=== PATIENT | female | born 1945 | race American Indian/Alaskan Native ===

== ENCOUNTER 2020-09-08 15:46 | Inpatient (IN) | payer OTHER, MEDICARE ==
[2020-09-08] MEDS ORDERED: SODIUM CHLORIDE 0.9% 1000 ML 1,000 ML IV ONE (16:33)
--- NOTE | 2020-09-08 16:43 | Emergency Department Report ---
HPI - General Chief Complaint: Syncope Time Seen by Provider: 09/08/20 16:19 - HPI HPI: 75-year-old female with history of hypertension and diabetes mellitus is brought in by EMS after she had a syncopal episode at home and was found to be hypoxic. HPI is obtained from the patient, her daughter, Vikas, and EMS. The patient states that for the last week she has felt ill with a cough productive of scant mucus. Today she said she felt particularly weak and sleepy and was sleeping all day and not eating. She does not remember ever having a syncopal episode. I spoke to the patient's daughter Gretta over the phone and she states that for the past 3 days the patient has been extremely somnolent and sleeping a lot. Today while checking her blood sugar while the patient was on the bed, her eyes rolled back in the patient fell back in the bed and was unconscious for approximately 60 seconds. When she regained consciousness she was mentating normally and was not confused. She did not at any point hit her head or injure any other part of her body. 911 was called and when EMS arrived the patient was satting 74% on room air. She was given 4 L of supplemental oxygen by nasal cannula which improved her oxygen to 94%. Her blood glucose was 227 in route. The patient is ANO x4 and she states that she never experienced any chest pain or shortness of breath at any time today. She says she has no complaints at this time either. She does say that she has had some urinary frequency but no dysuria. She has not received a Covid vaccine. ED Past Medical Hx - Past Medical History Previous Medical History?: Yes Hx Hypertension: Yes Hx Diabetes: Yes ED Review of Systems ROS: Stated complaint: WEAKNESS/HYPOXIA Other details as noted in HPI Constitutional: fever, weakness. denies: chills Eyes: denies: eye pain, vision change ENT: denies: throat pain, congestion Respiratory: cough. denies: shortness of breath, wheezing Cardiovascular: syncope. denies: chest pain, palpitations, edema Gastrointestinal: denies: abdominal pain, nausea, vomiting, diarrhea, constipation Genitourinary: frequency. denies: dysuria Musculoskeletal: denies: back pain, joint swelling Skin: denies: rash Neurological: denies: headache, weakness, numbness, paresthesias Psychiatric: denies: anxiety Physical Exam - Physical Exam Vital Signs: Vital Signs 09/08/20 16:22 O2 Sat by Pulse 89 Oximetry Physical Exam: GENERAL: Morbidly obese elderly female in no acute distress. Slightly somnolent but oriented x4 HEAD: Normocephalic. No obvious signs of trauma. ENT: Dry mucous membranes. EYES: Extraocular movements are intact. Pupils are equal round and reactive to light bilaterally NECK: Supple. Full ROM is intact. Trachea is midline. LUNGS: Tachypneic but without accessory muscle use. Equal chest rise bilateral ly. There are right-sided rales from the base of the mid lung and left-sided basilar rales. The remaining lung tejada are clear. CARDIOVASCULAR: Mild tachycardia but with regular rhythm. No murmurs or rubs. VASCULAR: Cap refill < 2 seconds. 2+ peripheral pulses. Bilateral lower extremities have chronic appearing skin changes and 1+ edema bilaterally ABDOMEN: Abdomen is soft and nondistended. There is no significant tenderness, guarding or rebound. SKIN: Skin is warm and dry NEURO: Patient is awake, slightly somnolent, and oriented. strategy director II-XII grossly intact. No focal deficits. Normal motor and sensory exam throughout. Normal speech. MUSCULOSKELETAL: No obvious deformities. No significant tenderness. Normal ROM throughout. BACK/SPINE: No midline tenderness or step-offs of the C/T/L spine. No costovertebral angle tenderness. ED Course Vital Signs 09/08/20 16:22 O2 Sat by Pulse 89 Oximetry ED Medical Decision Making - Lab Data Result diagrams: 09/08/20 17:37 09/08/20 17:37 Lab Results 09/08/20 09/08/20 09/08/20 Range/Units 17:37 17:37 17:37 WBC 4.3 L (4.5-11.0) K/mm3 RBC 4.55 (3.65-5.03) M/mm3 Hgb 14.1 (10.1-14.3) gm/dl Hct 42.8 (30.3-42.9) % MCV 94 (79-97) fl MCH 31 (28-32) pg MCHC 33 (30-34) % RDW 13.8 (13.2-15.2) % Plt Count 106 L (140-440) K/mm3 Lymph % (Auto) 14.9 (13.4-35.0) % Calhoun % (Auto) 7.5 H (0.0-7.3) % Eos % (Auto) 0.0 (0.0-4.3) % Baso % (Auto) 0.2 (0.0-1.8) % Lymph # (Auto) 0.6 L (1.2-5.4) K/mm3 Calhoun # (Auto) 0.3 (0.0-0.8) K/mm3 Eos # (Auto) 0.0 (0.0-0.4) K/mm3 Baso # (Auto) 0.0 (0.0-0.1) K/mm3 Seg Neutrophils % 77.4 H (40.0-70.0) % Seg Neutrophils # 3.3 (1.8-7.7) K/mm3 PT 14.2 (12.2-14.9) Sec. INR 1.04 (0.87-1.13) APTT 29.2 (24.2-36.6) Sec. D-Dimer 741.67 H (0-234) ng/mlDDU Sodium 129 L (137-145) mmol/L Potassium 3.6 (3.6-5.0) mmol/L Chloride 91.9 L (98-107) mmol/L Carbon Dioxide 24 (22-30) mmol/L Anion Gap 17 mmol/L BUN 32 H (7-17) mg/dL Creatinine 1.5 H (0.6-1.2) mg/dL Estimated GFR 41 ml/min BUN/Creatinine Ratio 21 % Glucose 200 H (65-100) mg/dL Lactic Acid (0.7-2.0) mmol/L Calcium 8.1 L (8.4-10.2) mg/dL Magnesium (1.7-2.3) mg/dL Ferritin (10.0-200.0) ng/mL Total Bilirubin 0.40 (0.1-1.2) mg/dL AST 49 H (5-40) units/L ALT 22 (7-56) units/L Alkaline Phosphatase 65 (35-129) units/L Lactate Dehydrogenase (91-180) units/L Troponin T < 0.010 (0.00-0.029) ng/mL C-Reactive Protein (0.00-1.30) mg/dL NT-Pro-B Natriuret Pep (0-900) pg/mL Total Protein 7.0 (6.3-8.2) g/dL Albumin 2.7 L (3.9-5) g/dL Albumin/Globulin Ratio 0.6 % Lipase 47 (13-60) units/L 09/08/20 09/08/20 09/08/20 Range/Units 17:37 17:37 17:37 WBC (4.5-11.0) K/mm3 RBC (3.65-5.03) M/mm3 Hgb (10.1-14.3) gm/dl Hct (30.3-42.9) % MCV (79-97) fl MCH (28-32) pg MCHC (30-34) % RDW (13.2-15.2) % Plt Count (140-440) K/mm3 Lymph % (Auto) (13.4-35.0) % Calhoun % (Auto) (0.0-7.3) % Eos % (Auto) (0.0-4.3) % Baso % (Auto) (0.0-1.8) % Lymph # (Auto) (1.2-5.4) K/mm3 Calhoun # (Auto) (0.0-0.8) K/mm3 Eos # (Auto) (0.0-0.4) K/mm3 Baso # (Auto) (0.0-0.1) K/mm3 Seg Neutrophils % (40.0-70.0) % Seg Neutrophils # (1.8-7.7) K/mm3 PT (12.2-14.9) Sec. INR (0.87-1.13) APTT (24.2-36.6) Sec. D-Dimer (0-234) ng/mlDDU Sodium (137-145) mmol/L Potassium (3.6-5.0) mmol/L Chloride (98-107) mmol/L Carbon Dioxide (22-30) mmol/L Anion Gap mmol/L BUN (7-17) mg/dL Creatinine (0.6-1.2) mg/dL Estimated GFR ml/min BUN/Creatinine Ratio % Glucose 201 H (65-100) mg/dL Lactic Acid 1.70 (0.7-2.0) mmol/L Calcium (8.4-10.2) mg/dL Magnesium 1.90 (1.7-2.3) mg/dL Ferritin 731.2 H (10.0-200.0) ng/mL Total Bilirubin (0.1-1.2) mg/dL AST (5-40) units/L ALT (7-56) units/L Alkaline Phosphatase (35-129) units/L Lactate Dehydrogenase 396 H (91-180) units/L Troponin T (0.00-0.029) ng/mL C-Reactive Protein 7.00 H (0.00-1.30) mg/dL NT-Pro-B Natriuret Pep 503.6 (0-900) pg/mL Total Protein (6.3-8.2) g/dL Albumin (3.9-5) g/dL Albumin/Globulin Ratio % Lipase (13-60) units/L 07/23/21 Range/Units 20:09 WBC (4.5-11.0) K/mm3 RBC (3.65-5.03) M/mm3 Hgb (10.1-14.3) gm/dl Hct (30.3-42.9) % MCV (79-97) fl MCH (28-32) pg MCHC (30-34) % RDW (13.2-15.2) % Plt Count (140-440) K/mm3 Lymph % (Auto) (13.4-35.0) % Calhoun % (Auto) (0.0-7.3) % Eos % (Auto) (0.0-4.3) % Baso % (Auto) (0.0-1.8) % Lymph # (Auto) (1.2-5.4) K/mm3 Calhoun # (Auto) (0.0-0.8) K/mm3 Eos # (Auto) (0.0-0.4) K/mm3 Baso # (Auto) (0.0-0.1) K/mm3 Seg Neutrophils % (40.0-70.0) % Seg Neutrophils # (1.8-7.7) K/mm3 PT (12.2-14.9) Sec. INR (0.87-1.13) APTT (24.2-36.6) Sec. D-Dimer (0-234) ng/mlDDU Sodium (137-145) mmol/L Potassium (3.6-5.0) mmol/L Chloride (98-107) mmol/L Carbon Dioxide (22-30) mmol/L Anion Gap mmol/L BUN (7-17) mg/dL Creatinine (0.6-1.2) mg/dL Estimated GFR ml/min BUN/Creatinine Ratio % Glucose (65-100) mg/dL Lactic Acid 1.80 (0.7-2.0) mmol/L Calcium (8.4-10.2) mg/dL Magnesium (1.7-2.3) mg/dL Ferritin (10.0-200.0) ng/mL Total Bilirubin (0.1-1.2) mg/dL AST (5-40) units/L ALT (7-56) units/L Alkaline Phosphatase (35-129) units/L Lactate Dehydrogenase (91-180) units/L Troponin T (0.00-0.029) ng/mL C-Reactive Protein (0.00-1.30) mg/dL NT-Pro-B Natriuret Pep (0-900) pg/mL Total Protein (6.3-8.2) g/dL Albumin (3.9-5) g/dL Albumin/Globulin Ratio % Lipase (13-60) units/L - EKG Data -: EKG Interpreted by [facility] - EKG Data 09/08/20 17:58 Normal sinus rhythm. Left axis deviation. Left anterior fascicular block. Normal intervals. No ectopy. Nonspecific T wave inversions. No significant ST segment abnormalities. - Radiology Data CHEST 1 VIEW 09/08/2020 3:49 PM INDICATION / CLINICAL INFORMATION: hypoxia. COMPARISON: None available. FINDINGS: SUPPORT DEVICES: None. HEART / MEDIASTINUM: No significant abnormality. LUNGS / PLEURA: Lung volumes are reduc ed with nonspecific bibasilar opacities. No significant pleural effusion. No pneumothorax. ADDITIONAL FINDINGS: No significant additional findings. IMPRESSION: Low lung volumes with nonspecific bibasilar opacities that could represent atelectasis or pneumonia. Continued radiographic follow-up to [facility] is recommended. Signer Name: Bogdan Pereira MD Signed: 09/08/2020 3:55 PM Workstation Name: [id number] CT HEAD WITHOUT CONTRAST INDICATION / CLINICAL INFORMATION: syncope. TECHNIQUE: All CT scans at this location are performed using CT dose reduction for ALARA by means of automated exposure control. COMPARISON: None available. FINDINGS: No acute intracranial hemorrhage. Ventricles are normal in size without midline shift or mass effect. No extra-axial fluid collection is seen. ADDITIONAL FINDINGS: None. IMPRESSION: 1. No acute intracranial abnormality. Signer Name: Roberto Smith MD Signed: 09/08/2020 6:40 PM Workstation Name: [id number] CTA CHEST WITH CONTRAST INDICATION / CLINICAL INFORMATION: syncope, rule out PE/dissection. TECHNIQUE: Axial CT images were obtained through the chest after injection of IV contrast. 3 plane MIP and/or 3D reconstructions were produced. All CT scans at this location are performed using CT dose reduction for ALARA by means of automated exposure control. COMPARISON: None available. FINDINGS: The pulmonary artery is patent without filling defect or evidence for PTE. There are diffuse multifocal airspace opacities and groundglass densities in bilateral lungs with some areas of nodularity. Bronchiectasis is identified. Heart is slightly enlarged. No pericardial effusion. A few paratracheal enlarged nodes. In the upper abdomen large gallstones are seen. Degenerative changes seen throughout spine. IMPRESSION: 1. No CT evidence for pulmonary embolism. 2. Multifocal airspace opacities with nodular densities and groundglass opacities in bilateral lungs. Findings could represent atypical infection, Covid. A follow-up after treatment is recommended to exclude underlying pulmonary nodule or malignancy. 3. Cholelithiasis. Signer Name: Roberto Smith MD Signed: 09/08/2020 6:52 PM Workstation Name: [id number] - Medical Decision Making 75-year-old female with diabetes brought in by EMS today after she experienced a syncopal episode and was found to be hypoxic with an oxygen saturation of 74% on room air. The patient has had a cough for the past week and for the past 3 days has been somnolent and not eating well. Patient had an episode of LOC in which her eyes rolled back for approximately 60 seconds while in the bed when she regained consciousness she was not confused to suggest a seizure. The patient is amnesic to the event. Initial assessment she is afebrile but with an oxygen saturation of 89% on room air which corrects to 95 to 98% on 4 L via nasal cannula. She has dry mucous membranes. Lung auscultation reveals right-sided rales from the base to the mid lung and left-sided basilar rales. She has a nonfocal neurologic exam and no obvious signs of trauma. We will perform broad work-up with sepsis order set including full set of labs and cultures, EKG, chest x-ray, COVID-19 order set, and CTA of the chest to assess for evidence of pulmonary embolism given syncope with hypoxia. We will obtain CT of the head to assess for intracranial hemorrhage, evidence of ongoing ischemia, brain mass, or other intracranial abnormality given that the patient has been somnolent and experienced a syncopal episode with amnesia for the event. We will give 1 L of IV fluids and continue supplemental oxygen. She is currently satting 97 to 99% on 4 L NC. We will monitor the patient very closely. At 5 PM, the chest x-ray appears to show bibasilar opacities thought to repre sent atelectasis versus pneumonia. Given my suspicion for pneumonia I have ordered IV ceftriaxone and azithromycin to treat CAP. The patient will receive 30 mL/kg of IV fluid based on her ideal body weight of 55 kg. Labs revealed leukopenia with white blood cell count of 4.3. Creatinine is elevated at 1.5 with BUN of 32 and sodium of 129. D-dimer is elevated at 741. The patient's inflammatory markers are elevated. Lactate is within normal limits. CT of the head reveals no acute abnormalities. CTA of the chest reveals groundglass opacities in the bilateral lungs most typical of COVID-19 pneumonia and nonspecific finding of gallstones. I spoke with the patient and her daughter Vikas over the phone with the patient regarding the fact that the patient has pneumonia which could very likely be due to COVID-19 and she will need to be admitted to the hospital for further treatment and supplemental oxygen. They both expressed understanding and agreement with the plan of care. She is currently satting in the high 90s on 5 L via nasal cannula. At 8:37 PM I spoke with Dr. Day from [place] regarding the patient's case. He states that given she is hypoxic and unlikely to be stable for transport she should stay and be admitted to our hospital. I spoke with Dr. Fan, the on-call hospitalist regarding the case and he accepts patient for admission and will assume care. Critical Care Time: Yes Critical care time in (mins) excluding proc time.: 45 Critical care attestation.: If time is entered above; I have spent that time in minutes in the direct care of this critically ill patient, excluding procedure time. Critical care time was spent in the evaluation, assessment, work-up, and management of syncope and hypoxic respiratory failure requiring supplemental oxygen, interpretation of x-rays, and multiple reevaluations and reassessment. ED Disposition Clinical Impression: Suspected 2019 novel coronavirus infection, Acute hypoxemic respiratory failur e, Acute kidney injury (NICOLASA) with acute tubular necrosis (ATN), Pneumonia, Obesity hypoventilation syndrome, Syncope, Hyperglycemia Disposition: DC-09 OP ADMIT IP TO THIS HOSP Is pt being admited?: Yes Condition: Fair
[2020-09-08] MEDS ORDERED: cefTRIAXone/NS 1 GM/50 ML 1 GM/50 ML BAG IV ONE (16:59)
[2020-09-08] MEDS ORDERED: AZITHROMYCIN/NS 500 MG/250 ML 500 MG/250 ML BAG IV ONE (17:00)
--- NOTE | 2020-09-08 17:00 | XRay Report ---
CHEST 1 VIEW 09/08/2020 3:49 PM INDICATION / CLINICAL INFORMATION: hypoxia. COMPARISON: None available. FINDINGS: SUPPORT DEVICES: None. HEART / MEDIASTINUM: No significant abnormality. LUNGS / PLEURA: Lung volumes are reduced with nonspecific bibasilar opacities. No significant pleural effusion. No pneumothorax. ADDITIONAL FINDINGS: No significant additional findings. IMPRESSION: Low lung volumes with nonspecific bibasilar opacities that could represent atelectasis or pneumonia. Continued radiographic follow-up to resolution is recommended. Signer Name: Bogdan Pereira MD Signed: 09/08/2020 4:55 PM Workstation Name: [id number]
[2020-09-08 18:23] LABS: Basophils % (Auto) 0.2 % (0.0-1.8); Hematocrit 42.8 % (30.3-42.9); Hemoglobin 14.1 gm/dl (10.1-14.3); Lymphocytes # (Auto) 0.6 K/mm3 (1.2-5.4); Lymphocytes % (Auto) 14.9 % (13.4-35.0); Mean Corpuscular HGB Conc 33 % (30-34); Mean Corpuscular Volume 94 fl (79-97); Monocytes # (Auto) 0.3 K/mm3 (0.0-0.8); Monocytes % (Auto) 7.5 % (0.0-7.3); Platelet Count 106 K/mm3 (140-440); Red Blood Count 4.55 M/mm3 (3.65-5.03); Red Cell Distribution Width 13.8 % (13.2-15.2)
[2020-09-08 18:30] LABS: INR 1.04 (0.87-1.13)
[2020-09-08 18:31] LABS: Partial Thromboplastin Time 29.2 Sec. (24.2-36.6)
[2020-09-08 18:45] LABS: Alanine Aminotransferase 22 units/L (7-56); Albumin 2.7 g/dL (3.9-5); BUN/Creatinine Ratio 21; Blood Urea Nitrogen 32 mg/dL (7-17); Calcium 8.1 mg/dL (8.4-10.2); Hemolysis Index 12
--- NOTE | 2020-09-08 19:44 | Cat Scan Report ---
CT HEAD WITHOUT CONTRAST INDICATION / CLINICAL INFORMATION: syncope. TECHNIQUE: All CT scans at this location are performed using CT dose reduction for ALARA by means of automated e xposure control. COMPARISON: None available. FINDINGS: No acute intracranial hemorrhage. Ventricles are normal in size without midline shift or mass effect. No extra-axial fluid collection is seen. ADDITIONAL FINDINGS: None. IMPRESSION: 1. No acute intracranial abnormality. Signer Name: Roberto Smith MD Signed: 09/08/2020 7:40 PM Workstation Name: [id number]
--- NOTE | 2020-09-08 19:56 | Cat Scan Report ---
CTA CHEST WITH CONTRAST INDICATION / CLINICAL INFORMATION: syncope, rule out PE/dissection. TECHNIQUE: Axial CT images were obtained through the chest after injection of IV contrast. 3 plane MD P and/or 3D reconstructions were produced. All CT scans at this location are performed using CT dose reduction for ALARA by means of automated exposure control. COMPARISON: None available. FINDINGS: The pulmonary artery is patent without filling defect or evidence for PTE. There are diffuse multifoc al airspace opacities and groundglass densities in bilateral lungs with some areas of nodularity. Bro nchiectasis is identified. Heart is slightly enlarged. No pericardial effusion. A few paratracheal en larged nodes. In the upper abdomen large gallstones are seen. Degenerative changes seen throughout sp ine. IMPRESSION: 1. No CT evidence for pulmonary embolism. 2. Multifocal airspace opacities with nodular densities and groundglass opacities in bilateral lungs. Findings could represent atypical infection, Covid. A follow-up after treatment is recommended to ex clude underlying pulmonary nodule or malignancy. 3. Cholelithiasis. Signer Name: Roberto Smith MD Signed: 09/08/2020 7:52 PM Workstation Name: [id number]
--- NOTE | 2020-09-08 20:19 | History and Physical Report ---
History of Present Illness Chief complaint: I do not feel good, and my daughter knows was going on History of present illness: 75 YO Female with HTN, DM, Obesity Hypoventilation Syndrome, OA presents to ED for evaluation. Patient states "I do not feel good". Patient states that she has experienced generalized weakness, loss of appetite, dry cough, loss of sense of smell, loss of sense of taste, shortness of breath, malaise, decreased exercise tolerance over the past 3 days with progressively worsening symptoms o tom the same timeframe. Patient daughter is available by telephone and provides additional history. Patient daughter reports that while she was checking the patient blood glucose levels the patient "I threw back in her head and she passed out". EMS was notified and upon arrival the patient was found to be in distress and subsequently transported to [facility] for further care and evaluation of the aforementioned symptoms. The patient was seen and evaluated in the emergency department. All lab and imaging studies reviewed. Patient was found to have a pulse oximetry of 82% on room air which is consistent with acute hypoxemic respiratory failure. Patient underwent chest x-ray and was found to h ave bilateral pneumonia, as well as NICOLASA with ATN, as well as suspected coronavirus infection. Patient admitted to medical floor and initiated on coronavirus protocol as well as pneumonia protocol. Patient denies fever, chills, chest pain, palpitation, productive cough, skin rash, recent ill contac ts, or known exposure to COVID-19. No prior admission for review. No medication listed at time of admission for reconciliation. Advanced care planning conducted in ED. Past History Past Medical History: diabetes, hypertension, other (See HPI) Medications and Allergies Allergies Allergy/AdvReac Type Severity Reaction Status Date / Time lisinopril Allergy Severe Angioedema Verified 09/08/20 16:33 Review of Systems Constitutional: weakness, other (Not feeling good), no weight loss, no weight gain, no fever, no chills Ears, nose, mouth and throat: no ear discharge, no decreased hearing, no nose pain, no nasal congestion, no nasal discharge Breasts: no change in shape, no swelling, no mass Cardiovascular: shortness of breath, no chest pain, no palpitations, no rapid/irregular heart beat, no syncope Respiratory: cough, shortness of breath, dyspnea on exertion, no hemoptysis, no congestion, no wheezing Gastrointestinal: no nausea, no vomiting, no diarrhea, no constipation Genitourinary Female: no pelvic pain, no flank pain, no dysuria, no urinary frequency, no urgency Rectal: no pain, no bleeding Musculoskeletal: no neck stiffness, no neck pain, no shooting arm pain, no arm numbness/tingling Integumentary: no rash, no pruritis, no redness, no sores, no wounds Neurological: no head injury, no transient paralysis, no paralysis, no parathesias, no tingling, no seizures Psychiatric: no anxiety, no change in sleep habits, no sleep disturbances, no hypersomnia Endocrine: no cold intolerance, no heat intolerance, no excessive thirst, no polydipsia, no polyuria Hematologic/Lymphatic: no easy bruising, no easy bleeding Allergic/Immunologic: no urticaria, no allergic rhinitis, no wheezing Exam - Constitutional Vitals: Temp Pulse Resp BP Pulse Ox 89 09/08/20 16:22 General appearance: Present: mild distress, obese - EENT Eyes: Present: PERRL ENT: hearing intact, clear oral mucosa - Neck Neck: Present: supple, normal ROM - Respiratory Respiratory effort: labored Respiratory: bilateral: diminished, rhonchi - Cardiovascular Heart Sounds: Present: S1 & S2. Absent: rub, click - Extremities Extremities: pulses symmetrical, No edema Peripheral Pulses: within normal limits - Abdominal General gastrointestinal: Present: soft, non-tender, non-distended, normal bowel sounds Female genitourinary: Present: normal - Integumentary Integumentary: Present: clear, warm, dry - Musculoskeletal Musculoskeletal: gait normal, strength equal bilaterally - Psychiatric Psychiatric: appropriate mood/affect, intact judgment & insight - Neurologic Neurologic: CNII-XII intact, moves all extremities HEART Score - HEART Score Troponin: Troponin T < 0.010 ng/mL (0.00-0.029) 09/08/20 17:37 Results - Labs CBC & Chem 7: 09/08/20 17:37 09/08/20 17:37 Labs: Abnormal lab results 09/08/20 09/08/20 09/08/20 Range/Units 17:37 17:37 17:37 WBC 4.3 L (4.5-11.0) K/mm3 Plt Count 106 L (140-440) K/mm3 [place] % (Auto) 7.5 H (0.0-7.3) % Lymph # (Auto) 0.6 L (1.2-5.4) K/mm3 Seg Neutrophils % 77.4 H (40.0-70.0) % D-Dimer 741.67 H (0-234) ng/mlDDU Sodium 129 L (137-145) mmol/L Chloride 91.9 L (98-107) mmol/L BUN 32 H (7-17) mg/dL Creatinine 1.5 H (0.6-1.2) mg/dL Glucose 200 H (65-100) mg/dL Calcium 8.1 L (8.4-10.2) mg/dL Ferritin (10.0-200.0) ng/mL AST 49 H (5-40) units/L Lactate Dehydrogenase (91-180) units/L C-Reactive Protein (0.00-1.30) mg/dL Albumin 2.7 L (3.9-5) g/dL 09/08/20 09/08/20 Range/Units 17:37 17:37 WBC (4.5-11.0) K/mm3 Plt Count (140-440) K/mm3 [place] % (Auto) (0.0-7.3) % Lymph # (Auto) (1.2-5.4) K/mm3 Seg Neutrophils % (40.0-70.0) % D-Dimer (0-234) ng/mlDDU Sodium (137-145) mmol/L Chloride (98-107) mmol/L BUN (7-17) mg/dL Creatinine (0.6-1.2) mg/dL Glucose 201 H (65-100) mg/dL Calcium (8.4-10.2) mg/dL Ferritin 731.2 H (10.0-200.0) ng/mL AST (5-40) units/L Lactate Dehydrogenase 396 H (91-180) units/L C-Reactive Protein 7.00 H (0.00-1.30) mg/dL Albumin (3.9-5) g/dL Assessment and Plan - Patient Problems (1) Acute hypoxemic respiratory failure Current Visit: Yes Status: Acute Plan to address problem: Chest x-ray, CT scan chest, supplemental oxygen, pulse oximetry, nebulizer therapy, prone positioning while in bed, noninvasive positive pressure ventilation as clinical indicated. (2) Suspected 2019 novel coronavirus infection Current Visit: Yes Status: Acute Plan to address problem: Coronavirus protocol: IV antibiotic therapy, IV steroid therapy, supplemental oxygen, pulse oximetry, prone positioning while in bed, vitamin C therapy, vitamin D therapy, zinc therapy, (3) Pneumonia Current Visit: Yes Status: Acute Plan to address problem: Pneumonia protocol: Chest x-ray, CBC, CMP, IV antibiotic therapy, supplemental oxygen, pulse oximetry, blood cultures. (4) Obesity hypoventilation syndrome Current Visit: Yes Status: Acute Plan to address problem: Balanced diet, increase physical activity at discharge, outpatient pulmonary f ollow-up for sleep study, outpatient bariatric surgery follow-up. (5) Acute kidney injury (NICOLASA) with acute tubular necrosis (ATN) Current Visit: Yes Status: Acute Plan to address problem: BMP, IV fluid resuscitation therapy, repeat BMP in a.m. to monitor serum creatinine as well as GFR. (6) DVT prophylaxis Current Visit: Yes Status: Acute Plan to address problem: SCDs bilateral lower extremities while in bed, prophylactic anticoagulation (7) Advance care planning Current Visit: Yes Status: Acute Plan to address problem: Disease education conducted, care plan discussed, diagnosis discussed, prognosis discussed, patient knowledges understanding and agreement with care plan, patient daughter acknowledges understanding agree with care plan, patient is full code, +30 minutes.
[2020-09-08] MEDS ORDERED: HYDROmorphone 1 MG/1 ML INJ IV PRN (20:23)
[2020-09-08] MEDS ORDERED: oxyCODONE /ACETAMINOPHEN 5-325MG TAB PO PRN (20:23)
[2020-09-08] MEDS ORDERED: ALBUTEROL 2.5 MG/3 ML NEBU IH PRN (20:23)
[2020-09-08] MEDS ORDERED: ONDANSETRON 4 MG/2 ML INJ IV PRN (20:23)
[2020-09-08] MEDS ORDERED: SODIUM CHLORIDE 0.9% 1000 ML 1,000 ML IV SCH (20:30)
[2020-09-08] MEDS ORDERED: POTASSIUM CHLORIDE ER 20 MEQ TAB PO ONE (20:37)
[2020-09-08] MEDS: methylPREDNISolone Sod Succinate 40 MG/1 ML INJ IV SCH (22:47)
[2020-09-08] MEDS: HEPARIN 5,000 UNIT/1 ML VIAL SUB-Q SCH (22:49)
[2020-09-08 23:16] LABS: Bilirubin,Urine NEG (Negative); Blood,Urine SM (Negative); Color,Urine Yellow (Yellow); Mucus,Urine FEW /HPF; Urobilinogen,Urine < 2.0 mg/dL (<2.0)
[2020-09-08 23:20] LABS: Protein,Urine >500 mg/dL (Negative)
[2020-09-08 23:24] LABS: Amphetamine Screen,Urine PRESUMPTIVE NEGATIVE; Benzodiazepines Screen,Urine PRESUMPTIVE NEGATIVE; Cannabinoid Screen,Urine PRESUMPTIVE NEGATIVE; Cocaine Screen,Urine PRESUMPTIVE NEGATIVE; Methadone Screen,Urine PRESUMPTIVE NEGATIVE; Opiate Screen,Urine PRESUMPTIVE NEGATIVE
[2020-09-08] MEDS: ZINC SULFATE 220 MG CAP PO SCH (23:31)
[2020-09-08] MEDS: ASCORBIC ACID 500 MG TAB PO SCH (23:31)
[2020-09-09] MEDS: methylPREDNISolone Sod Succinate 40 MG/1 ML INJ IV SCH ×3 (08:51→21:38)
[2020-09-09 09:06] LABS: Basophils % (Auto) 0.6 % (0.0-1.8); Hematocrit 47.1 % (30.3-42.9); Hemoglobin 15.5 gm/dl (10.1-14.3); Lymphocytes # (Auto) 0.3 K/mm3 (1.2-5.4); Lymphocytes % (Auto) 9.5 % (13.4-35.0); Mean Corpuscular HGB Conc 33 % (30-34); Mean Corpuscular Volume 94 fl (79-97); Monocytes # (Auto) 0.2 K/mm3 (0.0-0.8); Monocytes % (Auto) 4.7 % (0.0-7.3); Red Blood Count 5.01 M/mm3 (3.65-5.03); Red Cell Distribution Width 14.2 % (13.2-15.2)
[2020-09-09 09:10] LABS: Platelet Count 95 K/mm3 (140-440)
[2020-09-09 09:29] LABS: Albumin 2.8 g/dL (3.9-5); Calcium 8.4 mg/dL (8.4-10.2)
[2020-09-09] MEDS: HEPARIN 5,000 UNIT/1 ML VIAL SUB-Q SCH ×2 (10:31→21:38)
[2020-09-09] MEDS: AZITHROMYCIN/NS 500 MG/250 ML 500 MG/250 ML BAG IV SCH (10:31)
[2020-09-09] MEDS: cefTRIAXone/NS 2 GM/100 ML 2 GM/100 ML BAG IV SCH (10:32)
[2020-09-09] MEDS: ZINC SULFATE 220 MG CAP PO SCH ×2 (10:32→21:38)
[2020-09-09] MEDS: CHOLECALCIFEROL (VIT D3) 1000 UNIT (25 mcg) TAB PO SCH (10:32)
[2020-09-09] MEDS: ASCORBIC ACID 500 MG TAB PO SCH ×2 (10:34→21:38)
[2020-09-09] MEDS: INSULIN LISPRO 100 UNIT/ML SUB-Q SCH ×3 (11:30→21:41)
--- NOTE | 2020-09-09 11:42 | Progress Note ---
Assessment and Plan Assessment and Plan - Patient Problems (1) Acute hypoxemic respiratory failure Current Visit: Yes Status: Acute Plan to address problem: In severe respiratory failure Needs very high flow oxygen BiPAP as necessary (2) ARDS (adult respiratory distress syndrome) Current Visit: Yes Status: Acute Plan to address problem: Patient had respiratory distress syndrome secondary to Covid pneumonia Also hypoventilation syndrome (3) Obesity hypoventilation syndrome Current Visit: Yes Status: Acute Plan to address problem: Secondary to morbid obesity (4) Suspected 2019 novel coronavirus infection Current Visit: Yes Status: Acute Plan to address problem: Coronavirus pcr positive On IV Decadron (5) DVT prophylaxis Current Visit: Yes Status: Acute Subjective Date of service: 09/09/20 Principal diagnosis: Acute respiratory failure with hypoxia, Covid pneumonia Interval history: 75 YO Female with HTN, DM, Obesity Hypoventilation Syndrome, OA presents to ED for evaluation. Patient states "I do not feel good". Patient states that she has experienced generalized weakness, loss of appetite, dry cough, loss of sense of smell, loss of sense of taste, shortness of breath, malaise, decreased exercise tolerance over the past 3 days with progressively worsening symptoms over the same timeframe. Patient daughter is available by telephone and provides additional history. Patient daughter reports that while she was checking the patient blood glucose levels the patient "I threw back in her head and she passed out". EMS was notified and upon arrival the patient was found to be in distress and subsequently transported to [facility] for further care and evaluation of the aforementioned symptoms. The patient was seen and evaluated in the emergency department. All lab and imaging studies reviewed. Patient was found to have a pulse oximetry of 82% on room air which is consistent with acute hypoxemic respiratory failure. Patient underwent chest x-ray and was found to have bilateral pneumonia, as well as NICOLASA with ATN, as well as suspected coronavirus infection. Patient admitted to medical floor and initiated on coronavirus protocol as well as pneumonia protocol. Patient denies fever, chills, chest pain, palpitation, productive cough, skin rash, recent ill contacts, or known exposure to COVID-19. No prior admission for review. No medication listed at time of admission for reconciliation. Advanced care planning conducted in ED. 09/09/2020 Patient on high flow nasal cannula oxygen Covid positive pneumonia Patient morbidly obese Possible hypoventilation syndrome 09/10/2020 Patient on high flow nasal cannula oxygen and BiPAP Delay transfer to ICU for possible intubation Pulmonary consulted Objective - Constitutional Vitals: Vital Signs - 12hr 09/09/20 05:39 O2 Sat by Pulse 93 Oximetry General appearance: Present: severe distress, well-nourished - EENT Eyes: PERRL, EOM intact ENT: hearing intact, clear oral mucosa Ears: bilateral: normal - Neck Neck: supple, normal ROM - Respiratory Respiratory effort: normal Respiratory: bilateral: CTA - Breasts Breasts: normal - Cardiovascular Rhythm: regular Heart Sounds: Present: S1 & S2. Absent: gallop, rub Extremities: pulses intact, No edema, normal color, Full ROM - Gastrointestinal General gastrointestinal: Present: soft, non-tender, non-distended, normal bowel sounds - Genitourinary Female genitourinary: normal - Integumentary Integumentary: clear, warm, dry - Musculoskeletal Musculoskeletal: 1, strength equal bilaterally - Neurologic Neurologic: moves all extremities - Psychiatric Psychiatric: memory intact, appropriate mood/affect, intact judgment & insight - Labs CBC & Chem 7: 09/09/20 08:28 09/11/20 Unknown Labs: Abnormal lab results 09/08/20 09/08/20 09/08/20 Range/Units 17:37 17:37 17:37 WBC 4.3 L (4.5-11.0) K/mm3 Hgb (10.1-14.3) gm/dl Hct (30.3-42.9) % Plt Count 106 L (140-440) K/mm3 Lymph % (Auto) (13.4-35.0) % [place] % (Auto) 7.5 H (0.0-7.3) % Lymph # (Auto) 0.6 L (1.2-5.4) K/mm3 Seg Neutrophils % 77.4 H (40.0-70.0) % D-Dimer 741.67 H (0-234) ng/mlDDU Sodium 129 L (137-145) mmol/L Chloride 91.9 L (98-107) mmol/L BUN 32 H (7-17) mg/dL Creatinine 1.5 H (0.6-1.2) mg/dL Glucose 200 H (65-100) mg/dL POC Glucose (70-105) mg/dL Calcium 8.1 L (8.4-10.2) mg/dL Ferritin (10.0-200.0) ng/mL AST 49 H (5-40) units/L Lactate Dehydrogenase (91-180) units/L C-Reactive Protein (0.00-1.30) mg/dL Albumin 2.7 L (3.9-5) g/dL Ur Specific [place] (1.003-1.030) 09/08/20 09/08/20 09/08/20 Range/Units 17:37 17:37 22:24 WBC (4.5-11.0) K/mm3 Hgb (10.1-14.3) gm/dl Hct (30.3-42.9) % Plt Count (140-440) K/mm3 Lymph % (Auto) (13.4-35.0) % [place] % (Auto) (0.0-7.3) % Lymph # (Auto) (1.2-5.4) K/mm3 Seg Neutrophils % (40.0-70.0) % D-Dimer (0-234) ng/mlDDU Sodium (137-145) mmol/L Chloride (98-107) mmol/L BUN (7-17) mg/dL Creatinine (0.6-1.2) mg/dL Glucose 201 H (65-100) mg/dL POC Glucose (70-105) mg/dL Calcium (8.4-10.2) mg/dL Ferritin 731.2 H (10.0-200.0) ng/mL AST (5-40) units/L Lactate Dehydrogenase 396 H (91-180) units/L C-Reactive Protein 7.00 H (0.00-1.30) mg/dL Albumin (3.9-5) g/dL Ur Specific [place] 1.035 H (1.003-1.030) 09/08/20 09/09/20 09/09/20 Range/Units 23:35 07:30 08:28 WBC 3.4 L (4.5-11.0) K/mm3 Hgb 15.5 H (10.1-14.3) gm/dl Hct 47.1 H (30.3-42.9) % Plt Count 95 L (140-440) K/mm3 Lymph % (Auto) 9.5 L (13.4-35.0) % [place] % (Auto) (0.0-7.3) % Lymph # (Auto) 0.3 L (1.2-5.4) K/mm3 Seg Neutrophils % 85.2 H (40.0-70.0) % D-Dimer (0-234) ng/mlDDU Sodium (137-145) mmol/L Chloride (98-107) mmol/L BUN (7-17) mg/dL Creatinine (0.6-1.2) mg/dL Glucose (65-100) mg/dL POC Glucose 188 H 281 H (70-105) mg/dL Calcium (8.4-10.2) mg/dL Ferritin (10.0-200.0) ng/mL AST (5-40) units/L Lactate Dehydrogenase (91-180) units/L C-Reactive Protein (0.00-1.30) mg/dL Albumin (3.9-5) g/dL Ur Specific [place] (1.003-1.030) 09/09/20 Range/Units 08:28 WBC (4.5-11.0) K/mm3 Hgb (10.1-14.3) gm/dl Hct (30.3-42.9) % Plt Count (140-440) K/mm3 Lymph % (Auto) (13.4-35.0) % [place] % (Auto) (0.0-7.3) % Lymph # (Auto) (1.2-5.4) K/mm3 Seg Neutrophils % (40.0-70.0) % D-Dimer (0-234) ng/mlDDU Sodium 130 L (137-145) mmol/L Chloride 93.5 L (98-107) mmol/L BUN 31 H (7-17) mg/dL Creatinine 1.3 H (0.6-1.2) mg/dL Glucose 266 H (65-100) mg/dL POC Glucose (70-105) mg/dL Calcium (8.4-10.2) mg/dL Ferritin (10.0-200.0) ng/mL AST 48 H (5-40) units/L Lactate Dehydrogenase (91-180) units/L C-Reactive Protein (0.00-1.30) mg/dL Albumin 2.8 L (3.9-5) g/dL Ur Specific [place] (1.003-1.030) HEART Score - HEART Score Troponin: Troponin T < 0.010 ng/mL (0.00-0.029) 09/09/20 00:39
[2020-09-09] MEDS: glipiZIDE 10 MG TAB PO SCH (16:48)
[2020-09-09] MEDS: metFORMIN 500 MG TAB PO SCH (16:49)
[2020-09-09] MEDS: guaiFENesin DM 200/20 MG ORAL LIQD 10 ML PO PRN (21:35)
[2020-09-09] MEDS: carvediloL 3.125 MG TAB PO SCH (21:38)
[2020-09-10] MEDS: methylPREDNISolone Sod Succinate 40 MG/1 ML INJ IV SCH ×2 (05:14→13:27)
[2020-09-10] MEDS: guaiFENesin DM 200/20 MG ORAL LIQD 10 ML PO PRN (05:14)
[2020-09-10] MEDS: CHOLECALCIFEROL (VIT D3) 1000 UNIT (25 mcg) TAB PO SCH (09:54)
[2020-09-10] MEDS: ASCORBIC ACID 500 MG TAB PO SCH ×2 (09:54→23:07)
[2020-09-10] MEDS: carvediloL 3.125 MG TAB PO SCH ×2 (09:54→23:07)
[2020-09-10] MEDS: HEPARIN 5,000 UNIT/1 ML VIAL SUB-Q SCH ×2 (09:54→23:06)
[2020-09-10] MEDS: AZITHROMYCIN/NS 500 MG/250 ML 500 MG/250 ML BAG IV SCH (09:56)
[2020-09-10] MEDS: ZINC SULFATE 220 MG CAP PO SCH ×2 (10:00→23:08)
[2020-09-10] MEDS: INSULIN LISPRO 100 UNIT/ML SUB-Q SCH ×3 (11:33→22:30)
[2020-09-10] MEDS: glipiZIDE 10 MG TAB PO SCH ×2 (11:33→13:47)
[2020-09-10] MEDS: metFORMIN 500 MG TAB PO SCH (11:35)
[2020-09-10] MEDS: cefTRIAXone/NS 2 GM/100 ML 2 GM/100 ML BAG IV SCH (13:30)
--- NOTE | 2020-09-10 13:41 | Progress Note ---
Assessment and Plan - Patient Problems (1) Acute hypoxemic respiratory failure Current Visit: Yes Status: Acute Plan to address problem: In severe respiratory failure Needs very high flow oxygen BiPAP as necessary (2) ARDS (adult respiratory distress syndrome) Current Visit: Yes Status: Acute Plan to address problem: Patient had respiratory distress syndrome secondary to Covid pneumonia Also hypoventilation syndrome (3) Obesity hypoventilation syndrome Current Visit: Yes Status: Acute Plan to address problem: Secondary to morbid obesity (4) Suspected 2019 novel coronavirus infection Current Visit: Yes Status: Acute Plan to address problem: Coronavirus pcr positive On IV Decadron (5) DVT prophylaxis Current Visit: Yes Status: Acute Subjective Date of service: 09/10/20 Principal diagnosis: Acute respiratory failure with hypoxia, COVID-19 positive test (U07.1, [place] Interval history: 75 YO Female with HTN, DM, Obesity Hypoventilation Syndrome, OA presents to ED for evaluation. Patient states "I do not feel good". Patient states that she has experienced generalized weakness, loss of appetite, dry cough, loss of sense of smell, loss of sense of taste, shortness of breath, malaise, decreased exercise tolerance over the past 3 days with progressively worsening symptoms over the same timeframe. Patient daughter is available by telephone and provides additional history. Patient daughter reports that while she was checking the patient blood glucose levels the patient "I threw back in her head and she passed out". EMS was notified and upon arrival the patient was found to be in distress and subsequently transported to [facility] for further care and evaluation of the aforementioned symptoms. The patient was seen and evaluated in the emergency department. All lab and imaging studies reviewed. Patient was found to have a pulse oximetry of 82% on room air which is consistent with acute hypoxemic respiratory failure. Patient underwent chest x-ray and was found to have bilateral pneumonia, as well as NICOLASA with ATN, as well as suspected coronavirus infection. Patient admitted to medical floor and initiated on coronavirus protocol as well as pneumonia protocol. Patient denies fever, chills, chest pain, palpitation, productive cough, skin rash, recent ill contacts, or known exposure to COVID-19. No prior admission for review. No medication listed at time of admission for reconciliation. Advanced care planning conducted in ED. 09/09/2020 Patient on high flow nasal cannula oxygen Covid positive pneumonia Patient morbidly obese Possible hypoventilation syndrome 09/10/2020 Patient on high flow nasal cannula oxygen and BiPAP Delay transfer to ICU for possible intubation Pulmonary consulted Objective - Constitutional Vitals: Vital Signs - 12hr 09/10/20 09/10/20 09/10/20 03:13 05:05 08:40 Temperature 98.1 F Pulse Rate 80 76 Respiratory 18 32 H Rate Blood Pressure 133/83 O2 Sat by Pulse 83 L 88 84 Oximetry 09/10/20 09/10/20 09/10/20 09:54 10:11 11:45 Temperature Pulse Rate 89 89 Respiratory 38 H Rate Blood Pressure 148/86 O2 Sat by Pulse 78 L 82 L Oximetry General appearance: Present: severe distress, well-nourished - EENT Eyes: PERRL, EOM intact ENT: hearing intact, clear oral mucosa Ears: bilateral: normal - Neck Neck: supple, normal ROM - Respiratory Respiratory effort: normal Respiratory: bilateral: CTA, rhonchi, wheezing - Breasts Breasts: normal - Cardiovascular Heart rate: 78 Rhythm: regular Heart Sounds: Present: S1 & S2. Absent: gallop, rub Extremities: no ischemia, pulses intact, No edema, normal color, Full ROM - Gastrointestinal General gastrointestinal: Present: soft, non-tender, non-distended, normal bowel sounds - Genitourinary Female genitourinary: normal - Integumentary Integumentary: clear, warm, dry - Musculoskeletal Musculoskeletal: 1, strength equal bilaterally - Neurologic Neurologic: moves all extremities - Psychiatric Psychiatric: memory intact, appropriate mood/affect, intact judgment & insight - Allied health notes Allied health notes reviewed: nursing, case management - Labs CBC & Chem 7: 09/09/20 08:28 09/11/20 Unknown Labs: Abnormal lab results 09/09/20 09/09/20 09/09/20 Range/Units 09:00 17:21 21:15 POC Glucose 332 H 226 H (70-105) mg/dL Coronavirus (PCR) Positive A (Negative) 09/10/20 09/10/20 Range/Units 08:00 12:12 POC Glucose 240 H 267 H (70-105) mg/dL Coronavirus (PCR) (Negative) HEART Score - HEART Score Troponin: Troponin T < 0.010 ng/mL (0.00-0.029) 09/09/20 00:39
--- NOTE | 2020-09-10 14:23 | Electrocardiograph Report ---
[facility] Test Date: 2020-09-08 Test Time: 17:24:37 Pat Name: NEREYDA CHAPA Department: Room: A360 1 Gender: F Filling Technician: MARLENE : 1945 Requested By: TYRONE GARCIA Order Number: [id number] Reading MD: Donnie Bradley Measurements Intervals [place] Rate: 90 P: 31 VA: 167 QRS: -23 QRSD: 98 T: 1 QT: 394 QTc: 482 Interpretive Statements Sinus rhythm Left ventricular hypertrophy No previous ECG available for comparison Electronically Signed On 09-10-2020 14:23:25 EDT by Donnie Bradley
--- NOTE | 2020-09-10 15:07 | Consultation ---
History of Present Illness Consult date: 09/10/20 Requesting physician: GARRISON ZHANG Reason for consult: other (Acute Hypoxemic Respiratory Failure) History of present illness: PULMONARY/CCM CONSULT NOTE (Full dictation # [id number]) Please see dictated notes for full details Past History Past Medical History: diabetes, hypertension, other (See HPI) Medications and Allergies Allergies Allergy/AdvReac Type Severity Reaction Status Date / Time lisinopril Allergy Severe Angioedema Verified 09/08/20 16:33 Home Medications Medication Instructions Recorded Confirmed Last Taken Type Losartan 100 mg PO DAILY 09/09/20 09/09/20 09/08/20 08:00 History Metformin HCl 500 mg PO BID 09/09/20 09/09/20 09/08/20 History 500 carvediloL 3.125 mg PO BID 09/09/20 09/09/20 09/08/20 History glipiZIDE 10 mg PO AC 09/09/20 09/09/20 09/08/20 08:00 History Active Meds: Active Medications Acetaminophen (Acetaminophen 325 Mg Tab) 650 mg PO Q4H PRN PRN Reason: Pain MILD(1-3)/Fever >100.5/CORTEZ Albuterol (Albuterol 2.5 Mg/3 Ml Nebu) 2.5 mg IH Q4HRT PRN PRN Reason: Shortness Of Breath Ascorbic Acid (Ascorbic Acid 500 Mg Tab) 500 mg PO BID [facility] Last Admin: 09/10/20 09:54 Dose: 500 mg Documented by: Carvedilol (Carvedilol 3.125 Mg Tab) 3.125 mg PO BID [facility] Last Admin: 09/10/20 09:54 Dose: 3.125 mg Documented by: Cholecalciferol (Cholecalciferol (Vit D3) 1000 Unit (25 Mcg) Tab) 1,000 unit PO QDAY [facility] Last Admin: 09/10/20 09:54 Dose: 1,000 unit Documented by: Glipizide (Glipizide 10 Mg Tab) 10 mg PO AC [facility] Last Admin: 09/10/20 13:47 Dose: Not Given Documented by: Guaifenesin (Guaifenesin Dm 200/20 Mg Oral Liqd 10 Ml) 10 ml PO Q4H PRN PRN Reason: Cough Last Admin: 09/10/20 05:14 Dose: 10 ml Documented by: Heparin Sodium (Porcine) (Heparin 5,000 Unit/1 Ml Vial) 5,000 unit SUB-Q Q12HR [facility] Last Admin: 09/10/20 09:54 Dose: 5,000 unit Documented by: Hydromorphone HCl (Hydromorphone 1 Mg/1 Ml Inj) 0.5 mg IV Q12H PRN PRN Reason: Pain , Severe (7-10) Sodium Chloride (Nacl 0.9% 1000 Ml) 1,000 mls @ 42 mls/hr IV DIRECT ISIAH Ceftriaxone Sodium (Rocephin/Ns 2 Gm/100 Ml) 2 gm in 100 mls @ 200 mls/hr IV Q24HR [facility]; Protocol Last Admin: 09/10/20 13:30 Dose: 200 mls/hr Documented by: Azithromycin (Zithromax/Ns) 500 mg in 250 mls @ 250 mls/hr IV Q24HR [facility]; Protocol Last Admin: 09/10/20 09:56 Dose: 250 mls/hr Documented by: Insulin Human Lispro (Insulin Lispro 100 Unit/Ml) 0 unit SUB-Q ACHS [facility]; Protocol Last Admin: 09/10/20 13:27 Dose: 4 unit Documented by: Metformin HCl (Metformin 500 Mg Tab) 500 mg PO BIDDIAB [facility] Last Admin: 09/10/20 11:35 Dose: Not Given Documented by: Methylprednisolone Sodium Succinate (Methylprednisolone Sod Succinate 40 Mg/1 Ml Inj) 40 mg IV Q8HR [facility] Last Admin: 09/10/20 13:27 Dose: 40 mg Documented by: Ondansetron HCl (Ondansetron 4 Mg/2 Ml Inj) 4 mg IV Q8H PRN PRN Reason: Nausea And Vomiting Oxycodone/Acetaminophen (Oxycodone /Acetaminophen 5-325mg Tab) 1 tab PO Q12H PRN PRN Reason: Pain, Moderate (4-6) Last Admin: 09/10/20 08:18 Dose: 1 tab Documented by: Sodium Chloride (Sodium Chloride 0.9% 10 Ml Flush Syringe) 10 ml IV BID [facility] Last Admin: 09/10/20 09:56 Dose: 10 ml Documented by: Sodium Chloride (Sodium Chloride 0.9% 10 Ml Flush Syringe) 10 ml IV PRN PRN PRN Reason: LINE FLUSH Zinc Sulfate (Zinc Sulfate 220 Mg Cap) 220 mg PO BID [facility] Last Admin: 09/10/20 10:00 Dose: 220 mg Documented by: Physical Examination Vital signs: Vital Signs Pulse Ox 89 09/08/20 16:22 Results - Laboratory Findings CBC and BMP: 09/09/20 08:28 09/09/20 08:28 PT/INR, D-dimer PT 14.2 Sec. (12.2-14.9) 09/08/20 17:37 INR 1.04 (0.87-1.13) 09/08/20 17:37 D-Dimer 741.67 ng/mlDDU (0-234) H 09/08/20 17:37 Abnormal lab findings: Abnormal Labs 09/08/20 09/08/20 09/08/20 17:37 17:37 17:37 WBC 4.3 L Hgb Hct Plt Count 106 L Lymph % (Auto) [place] % (Auto) 7.5 H Lymph # (Auto) 0.6 L Seg Neutrophils % 77.4 H D-Dimer 741.67 H Sodium 129 L Chloride 91.9 L BUN 32 H Creatinine 1.5 H Glucose 200 H POC Glucose Calcium 8.1 L Ferritin AST 49 H Lactate Dehydrogenase C-Reactive Protein Albumin 2.7 L Ur Specific [place] Coronavirus (PCR) 09/08/20 09/08/20 09/08/20 17:37 17:37 22:24 WBC Hgb Hct Plt Count Lymph % (Auto) [place] % (Auto) Lymph # (Auto) Seg Neutrophils % D-Dimer Sodium Chloride BUN Creatinine Glucose 201 H POC Glucose Calcium Ferritin 731.2 H AST Lactate Dehydrogenase 396 H C-Reactive Protein 7.00 H Albumin Ur Specific [place] 1.035 H Coronavirus (PCR) 09/08/20 09/09/20 09/09/20 23:35 07:30 08:28 WBC 3.4 L Hgb 15.5 H Hct 47.1 H Plt Count 95 L Lymph % (Auto) 9.5 L [place] % (Auto) Lymph # (Auto) 0.3 L Seg Neutrophils % 85.2 H D-Dimer Sodium Chloride BUN Creatinine Glucose POC Glucose 188 H 281 H Calcium Ferritin AST Lactate Dehydrogenase C-Reactive Protein Albumin Ur Specific [place] Coronavirus (PCR) 09/09/20 09/09/20 09/09/20 08:28 09:00 11:48 WBC Hgb Hct Plt Count Lymph % (Auto) [place] % (Auto) Lymph # (Auto) Seg Neutrophils % D-Dimer Sodium 130 L Chloride 93.5 L BUN 31 H Creatinine 1.3 H Glucose 266 H POC Glucose 354 H Calcium Ferritin AST 48 H Lactate Dehydrogenase C-Reactive Protein Albumin 2.8 L Ur Specific [place] Coronavirus (PCR) Positive A 09/09/20 09/09/20 09/10/20 17:21 21:15 08:00 WBC Hgb Hct Plt Count Lymph % (Auto) [place] % (Auto) Lymph # (Auto) Seg Neutrophils % D-Dimer Sodium Chloride BUN Creatinine Glucose POC Glucose 332 H 226 H 240 H Calcium Ferritin AST Lactate Dehydrogenase C-Reactive Protein Albumin Ur Specific [place] Coronavirus (PCR) 09/10/20 12:12 WBC Hgb Hct Plt Count Lymph % (Auto) [place] % (Auto) Lymph # (Auto) Seg Neutrophils % D-Dimer Sodium Chloride BUN Creatinine Glucose POC Glucose 267 H Calcium Ferritin AST Lactate Dehydrogenase C-Reactive Protein Albumin Ur Specific [place] Coronavirus (PCR)
[2020-09-10 17:10] LABS: Calcium 8.8 mg/dL (8.4-10.2)
[2020-09-10] MEDS ORDERED: LORazepam 2 MG/ML VIAL IV ONE (20:22)
[2020-09-10] MEDS ORDERED: ETOMIDATE 20 MG/10 ML INJ IV ONE (21:35)
[2020-09-10] MEDS ORDERED: SUCCINYLCHOLINE CHLORIDE 200 MG/10 ML INJ MDV ONE (21:35)
--- NOTE | 2020-09-10 22:12 | Event Note ---
Date: 09/10/20 [facility] intubation note I was asked by the hospitalist Dr. Andrews to intubate the patient secondary to respiratory failure. Intubation note Consent was unobtainable due to patient condition Preoxygenation with 100% oxygen Patient was sedated with etomidate 20 mg IV Patient was paralyzed with succinylcholine 100 mg IV A size 7.0 mm ET tube was inserted orally on first attempt There was symmetric chest rise and bilateral breath sounds post intubation A CO2 indicator was used for confirmation and resulted in positive CO2 return Pulse oximetry post intubation was 100% ET tube was taped at 21 cm at the lips The patient tolerated the procedure well The light failed on the glide scope after sedation and paralytics necessitating intubation using direct laryngoscopy. During the transition the patient became hypoxic transiently to the high 20s but after intubation SPO2 was 100% The hospitalist Dr. Andrews was notified of the intubation and confirms that he will order and follow-up on the post intubation chest x-ray
--- NOTE | 2020-09-10 23:05 | XRay Report ---
CHEST 1 VIEW 09/10/2020 10:23 PM INDICATION / CLINICAL INFORMATION: Post intubation. COMPARISON: One view of the chest from 09/08/2020 FINDINGS: SUPPORT DEVICES: An ET tube has been placed with tip located 5 cm above the artemio. HEART / MEDIASTINUM: No significant abnormality. LUNGS / PLEURA: Bilateral airspace opacities have increased. No significant pleural effusion. No pneu mothorax. ADDITIONAL FINDINGS: No significant additional findings. IMPRESSION: 1. Increased bilateral airspace opacities. 2. ET tube as above. Signer Name: Bogdan Pereira MD Signed: 09/10/2020 11:01 PM Workstation Name: [id number]
[2020-09-10] MEDS: fentaNYL DRIP Premix 2,000 MCG/100 ML BAG IV SCH (23:08)
--- NOTE | 2020-09-10 23:23 | Event Note ---
Date: 09/10/20 Patient on admission for acute hypoxic respiratory failure secondary to pneumonia and suspected COVID-19 who has been in respiratory distress. Geriatric Psychiatrist recommended that patient be intubated. ER physician consulted for intubation. Patient successfully intubated. Postintubation chest x-ray ordered. Will continue to follow up.
[2020-09-11] MEDS: INSULIN LISPRO 100 UNIT/ML SUB-Q SCH ×4 (06:01→18:18)
[2020-09-11] MEDS: dexAMETHasone 4 MG/ML VIAL IV SCH ×2 (06:02→10:08)
[2020-09-11] MEDS: glipiZIDE 10 MG TAB PO SCH (06:02)
--- NOTE | 2020-09-11 06:13 | Consultation ---
DATE OF CONSULTATION: 09/10/2020 PULMONARY CRITICAL CARE CONSULT NOTE CONSULTING PHYSICIAN: Dr. Vaughn REASON FOR CONSULTATION: Acute hypoxemic respiratory failure, COVID-19 infection and bilateral pneumonia. CHIEF COMPLAINT AND HISTORY OF PRESENT ILLNESS: The patient is a now 75-year-old female, obese. Past medical history according to the records significant for hypertension and diabetes, brought in by emergency medical services after she had a syncopal episode at home and was found to be significantly hypoxemic. According to the records for the last 3 weeks, she has felt ill. She has a productive cough intermittently for scant mucus. She denied hemoptysis. On the day of presentation, she was weak and sleepy all the day and not eating. She does not remember having the syncopal episode. They reported that while they were checking her blood sugar in the bed today, her mother's eyes rolled back and she fell back in bed and was unconscious for approximately one minute. She did not seem to have any postictal confusion. EMS found her with O2 sats of 74% on room air. She was brought into the Emergency Room. She was alert and oriented x 4. She denied any hemoptysis, denied any new-onset leg pain or swelling, either unilaterally or bilaterally or any suggestion of venous thromboembolic phenomena. Evaluation in the Emergency Room was consistent with bilateral pulmonary infiltrates and her COVID test came back positive. She was transferred up to the COVID floor on supplemental oxygen. She has continued to require increased oxygen levels and was recently placed on bilevel positive airway pressure ventilation therapy with I believe an EPAP of 14, IPAP of 20 and 100% FIO2, but remained hypoxemic with a pO2 of 52 on the blood gas. When I stopped by to see her, she was actually talking to me with mildly increased respiratory effort, said she did not really like the BiPAP mask, but she could tolerate it. With regards to tobacco use/abuse history, she is not a current smoker, remote history is unknown. This really is as much of the history of presentation as I have. PAST MEDICAL HISTORY: Hypertension, diabetes. She is obese. PAST SURGICAL HISTORY: Unknown. MEDICATIONS: She was on at the time I stopped by to see were reviewed, pertinent medications include the following: Tylenol 650 mg p.o. q. 4 hours p.r.n. mild pain or fevers, albuterol 2.5 mg nebulized q. 4 hours p.r.n. shortness of breath, vitamin C 500 mg p.o. b.i.d., Zithromax 500 mg IV daily, Coreg 3.125 mg p.o. b.i.d., Rocephin 2 grams IV daily, vitamin D3 1000 units p.o. daily, glipizide 10 mg p.o. daily p.r.n., guaifenesin DM 10 mL p.o. q. 4 hours p.r.n. cough, heparin 5000 units subQ q. 12, Dilaudid 0.5 mg IV q. 12 hours p.r.n. severe pain, insulin via sliding scale, metformin 500 mg p.o. b.i.d., Solu-Medrol 40 mg IV q. 8 hours., Zofran 4 mg IV q. 8 hours p.r.n. nausea and vomiting, Percocet 1 tablet p.o. q. 12 hours p.r.n. moderate pain, zinc sulfate ____ mg p.o. b.i.d. ALLERGIES: LISINOPRIL. Nature of this allergy is unknown. DIET: She is morbidly obese. Denies acute weight loss or gain in the preceding few weeks to months. SOCIAL HISTORY: Lives in the community. Denies alcohol, tobacco or illicit drug use or abuse. FAMILY HISTORY: Otherwise, noncontributory. REVIEW OF SYSTEMS: Difficult to obtain secondary to patient's medical and mental condition. She denies gross hematochezia or melena, gross hematuria or dysuria. No hematemesis, no hemoptysis, no palpitations. She denies polydipsia, polyuria, heat or cold intolerance. Complete 13 system review of system was obtained. Pertinent positives and/or negatives as in body of history above, otherwise noncontributory. PHYSICAL EXAMINATION: VITAL SIGNS: On presentation, afebrile, temperature 98.2 degrees Fahrenheit, pulse of 90, respiratory rate of 25, blood pressure 163/90, O2 sats were 96% at that time inspired oxygen concentration was not recorded. When I stopped by to see her, O2 sats were around 90% on 100% FIO2 on the above-mentioned BiPAP settings. GENERAL: She is an elderly looking obese female. Normocephalic, atraumatic with mildly increased respiratory effort at rest. HEENT: Anicteric. Mild conjunctival erythema. She had the BiPAP full face mask on. She has a large neck circumference. NECK: No gross jugular venous distention, no thyromegaly. Grossly, there were no palpable lymph nodes in the supraclavicular or submandibular lymph node chains. LUNGS: Auscultation of both lung [place], diminished bilateral breath sounds, inspiratory bilateral rales, no active wheezing. HEART: Sounds 1 and 2 are heard at the time of my evaluation, regular rate and rhythm without overt rubs or murmurs. ABDOMEN: Soft, full, protuberant. Bowel sounds are positive, nontender, no palpable hepatosplenomegaly. EXTREMITIES: Without overt digital clubbing or cyanosis, no pedal edema. Pedal pulses are 2+ bilaterally. NEUROLOGIC: Pupils are equal, round, about 4 mm, reactive to light. Extraocular muscle movements are intact. She moves all 4 extremities spontaneously. SKIN: Normal turgor without overt cellulitis. She had stasis dermatitis type rash to the lower extremities bilaterally. Please see the wound care nurses' notes for full description of her skin. PSYCHIATRIC: Mood was normal. Affect was anxious. She had intact judgment and insight. LABORATORY DATA: From my review are as follows: Admission white cell count 4300, hemoglobin 14.1, hematocrit 42.8, platelet count 106. No manual differential. D-dimer elevated at 742. INR 1.04. Serum sodium 129, potassium 3.6, chloride 92, bicarbonate 24, BUN 32, creatinine 1.5, glucose was 201. Lactic acid level within normal limits. Ferritin elevated at 731, AST up at 49. Otherwise, liver function tests essentially within normal limits. CRP was 7.0. Procalcitonin 0.5. Urinalysis was bland. Negative for nitrites and leukocyte esterase. Urine drug screen was presumptive negative. Coronavirus PCR has come back positive. Two sets of blood cultures, urine cultures, no growth to date. A CT scan shows bilateral pneumonia and consolidation, in particular the left lower lobe. It is a CT angiogram, good contrast filling, no filling defects consistent with pulmonary emboli. She also had a CT scan of her head, no acute intracranial process. ASSESSMENT: 1. Acute hypoxemic respiratory failure. 2. Acute respiratory distress syndrome. 3. COVID-19 infection. 4. Bilateral pneumonia. 5. Diabetes. 6. Hypertension. 7. Obesity. 8. Leukopenia. 9. Elevated serum inflammatory markers to include D-dimer, ferritin and LDH. PLAN: I have discussed with her daughter and the patient despite her pO2 of 52 on 100% FIO2, she is actually with mildly increased respiratory effort talking to me and coherent. I have told her that we could electively intubate her at this time or we could just watch her and see how she does. In the meantime, I am going to transfer her to the intensive care unit and get a good read on the O2 sats and see if we get O2 sats in the 90s. If that is the case, we will observe her on bilevel positive airway pressure ventilation therapy. If, however, we are not able to oxygenate her appropriately or she is uncomfortable, then I will go ahead and electively intubate. Otherwise, oxygen will be weaned to keep sats greater than or equal to about 92%. She will be kept in contact and airborne isolation. I will empirically begin remdesivir therapy until seen by the Infectious Disease physician. She may be a candidate for Actemra. I will defer to ID. We will continue empiric community-acquired pneumonia therapy, bronchodilators, routine pulmonary hygiene will be per the respiratory therapy. I will switch the Solu-Medrol to Decadron on 6 mg, ____ mg IV daily. Glycemic control will be for target blood glucose of 140-180 mg/dL while critically ill. We will watch her, avoid nephrotoxins and follow electrolytes and urea. I will get bilateral lower extremity Dopplers for now. We will just put her on DVT prophylaxis doses of anticoagulation. I will get a troponin level ____ within normal limits. A 2D echocardiogram will be ordered and flu and pneumonia vaccination will be addressed per protocol. Thank you very much for the consult Dr. Vaughn. We will follow along and make further recommendations as picture progresses/becomes clearer. She is critically ill, on life-sustaining interventions including continuous high pressure noninvasive ventilation, at very high risk of from cardiopulmonary system decompensation. This time spent about 35-40 minutes of critical care time without overlap and excluding any procedural time that may be necessary. TID: [id number] RECEIPT: [id number] DARREL/CLAYTON/HEATHER
[2020-09-11 06:34] LABS: Albumin 2.7 g/dL (3.9-5); Calcium 8.9 mg/dL (8.4-10.2)
[2020-09-11] MEDS: fentaNYL 100 MCG/2 ML INJ IV PRN ×2 (08:45→09:21)
[2020-09-11] MEDS ORDERED: INSULIN GLARGINE 100 UNITS/ML SUB-Q ONE (09:00)
--- NOTE | 2020-09-11 09:51 | XRay Report ---
ABDOMEN 1 VIEW(S) INDICATION / CLINICAL INFORMATION: ngt placement. COMPARISON: None FINDINGS: TUBES / LINES: The nasogastric tube terminates in the distal stomach near the pylorus or just within the duodenal bulb. BOWEL GAS PATTERN: No significant abnormality. FREE AIR / EXTRALUMINAL GAS: None seen. ADDITIONAL FINDINGS: No significant additional findings. IMPRESSION: The nasogastric tube terminates in the distal stomach. No acute process is noted in the abdomen. Signer Name: Moe Cuellar Jr, MD Signed: 09/11/2020 9:46 AM Workstation Name: [id number]
[2020-09-11] MEDS ORDERED: FAMOTIDINE 20 MG TAB PO SCH (10:00)
[2020-09-11] MEDS: cefTRIAXone/NS 2 GM/100 ML 2 GM/100 ML BAG IV SCH (10:05)
[2020-09-11] MEDS: ASCORBIC ACID 500 MG TAB PO SCH ×2 (10:08→21:18)
[2020-09-11] MEDS: fentaNYL DRIP Premix 2,000 MCG/100 ML BAG IV SCH ×4 (10:08→21:35)
[2020-09-11] MEDS: ZINC SULFATE 220 MG CAP PO SCH ×2 (10:08→21:18)
[2020-09-11] MEDS: CHOLECALCIFEROL (VIT D3) 1000 UNIT (25 mcg) TAB PO SCH (10:08)
[2020-09-11] MEDS: AZITHROMYCIN/NS 500 MG/250 ML 500 MG/250 ML BAG IV SCH (10:13)
[2020-09-11] MEDS: carvediloL 3.125 MG TAB PO SCH ×2 (10:14→21:19)
[2020-09-11] MEDS: HEPARIN 5,000 UNIT/1 ML VIAL SUB-Q SCH ×2 (10:17→21:18)
[2020-09-11] MEDS: FAMOTIDINE 20 MG/2 ML INJ IV SCH ×2 (10:41→21:18)
[2020-09-11] MEDS ORDERED: SODIUM BICARBONATE 325 MG TAB FEEDTUBE PRN (11:45)
[2020-09-11] MEDS ORDERED: LIPASE 10,500/PROTEASE 25,000/AMYLASE 43,750 (UNITS) DR CAP FEEDTUBE PRN (11:45)
[2020-09-11] MEDS ORDERED: SIMPLE SYRUP 15 ML FEEDTUBE PRN ×2 (11:45)
--- NOTE | 2020-09-11 11:51 | Consultation ---
History of Present Illness - Reason for Consult Consult date: 09/11/20 COVID-19 Requesting physician: VERNON ELENA - History of Present Illness The patient is a 75-year-old female with hypertension, diabetes, obesity hypoventilation syndrome was admitted to the hospital with cough, shortness of breath, not feeling well. Upon evaluation in the ER, noted to be hypoxic. She tested positive for COVID-19. Last night, was intubated and placed on mechanica l ventilation. Infectious diseases was consulted for additional evaluation. Afebrile. Critically ill, remains in ICU, on the vent with 100% FiO2. Labs revealed leukopenia, D-dimer 741, procalcitonin 0.5, ferritin 731, CRP 7.0 Review of Systems: reviewed in the chart, unable to obtain, minimize risk of transmission Past History Past Medical History: diabetes, hypertension, other (See HPI) Medications and Allergies Allergies Allergy/AdvReac Type Severity Reaction Status Date / Time lisinopril Allergy Severe Angioedema Verified 09/08/20 16:33 Home Medications Medication Instructions Recorded Confirmed Last Taken Type Losartan 100 mg PO DAILY 09/09/20 09/09/20 09/08/20 08:00 History Metformin HCl 500 mg PO BID 09/09/20 09/09/20 09/08/20 History 500 carvediloL 3.125 mg PO BID 09/09/20 09/09/20 09/08/20 History glipiZIDE 10 mg PO AC 09/09/20 09/09/20 09/08/20 08:00 History Active Meds: Active Medications Acetaminophen (Acetaminophen 325 Mg Tab) 650 mg PO Q4H PRN PRN Reason: Pain MILD(1-3)/Fever >100.5/CORTEZ Albuterol (Albuterol 2.5 Mg/3 Ml Nebu) 2.5 mg IH Q4HRT PRN PRN Reason: Shortness Of Breath Lipase/Protease/Amylase (Lipase 10,500/Protease 25,000/Amylase 43,750 (Units) Dr Issa) 1 each FEEDTUBE PRN PRN PRN Reason: For Clogged Feeding Tube Ascorbic Acid (Ascorbic Acid 500 Mg Tab) 500 mg PO BID ISIAH Last Admin: 09/11/20 10:08 Dose: 500 mg Documented by: Carvedilol (Carvedilol 3.125 Mg Tab) 3.125 mg PO BID [facility] Last Admin: 09/11/20 10:14 Dose: Not Given Documented by: Cholecalciferol (Cholecalciferol (Vit D3) 1000 Unit (25 Mcg) Tab) 1,000 unit PO QDAY [facility] Last Admin: 09/11/20 10:08 Dose: 1,000 unit Documented by: Dexamethasone (Dexamethasone 4 Mg/Ml Vial) 8 mg IV DAILY [facility] Stop: 09/19/20 10:01 Last Admin: 09/11/20 10:08 Dose: 8 mg Documented by: Famotidine (Famotidine 20 Mg Tab) 20 mg PO QDAY [facility] Last Admin: 09/11/20 10:17 Dose: 20 mg Documented by: Famotidine (Famotidine 20 Mg/2 Ml Inj) 20 mg IV BID [facility] Fentanyl (Fentanyl 100 Mcg/2 Ml Inj) 50 mcg IV Q10MIN PRN PRN Reason: ANALGESIA Last Admin: 09/11/20 09:21 Dose: 50 mcg Documented by: Guaifenesin (Guaifenesin Dm 200/20 Mg Oral Liqd 10 Ml) 10 ml PO Q4H PRN PRN Reason: Cough Last Admin: 09/10/20 05:14 Dose: 10 ml Documented by: Heparin Sodium (Porcine) (Heparin 5,000 Unit/1 Ml Vial) 5,000 unit SUB-Q Q12HR [facility] Last Admin: 09/11/20 10:17 Dose: 5,000 unit Documented by: Hydromorphone HCl (Hydromorphone 1 Mg/1 Ml Inj) 0.5 mg IV Q12H PRN PRN Reason: Pain , Severe (7-10) Sodium Chloride (Nacl 0.9% 1000 Ml) 1,000 mls @ 42 mls/hr IV DIRECT [facility] Last Admin: 09/10/20 23:11 Dose: 42 mls/hr Documented by: Ceftriaxone Sodium (Rocephin/Ns 2 Gm/100 Ml) 2 gm in 100 mls @ 200 mls/hr IV Q24HR [facility]; Protocol Stop: 09/13/20 10:29 Last Admin: 09/11/20 10:05 Dose: 200 mls/hr Documented by: Azithromycin (Zithromax/Ns) 500 mg in 250 mls @ 250 mls/hr IV Q24HR [facility]; Protocol Stop: 09/13/20 10:59 Last Admin: 09/11/20 10:13 Dose: 250 mls/hr Documented by: REMDESIVIR 200 mg/ Sodium (Chloride) 250 mls @ 500 mls/hr IV ONCE ONE Stop: 09/10/20 17:02 REMDESIVIR 100 mg/ Sodium (Chloride) 250 mls @ 500 mls/hr IV Q24HR@2100 ISIAH Stop: 09/14/20 21:29 Propofol (Diprivan 10 Mg/Ml) 1,000 mg in 100 mls @ 4.47 mls/hr IV TITR ISIAH; Protocol Last Admin: 09/11/20 10:47 Dose: 20 mcg/kg/min, 17.88 mls/hr Documented by: Fentanyl Citrate (Fentanyl Drip Premix) 2,000 mcg in 100 mls @ 7.45 mls/hr IV TITR ISIAH; Protocol Last Admin: 09/11/20 10:08 Dose: 2 mcg/kg/hr, 14.9 mls/hr Documented by: Insulin Human Lispro (Insulin Lispro 100 Unit/Ml) 0 unit SUB-Q Q6HR [facility]; Protocol Ondansetron HCl (Ondansetron 4 Mg/2 Ml Inj) 4 mg IV Q8H PRN PRN Reason: Nausea And Vomiting Oxycodone/Acetaminophen (Oxycodone /Acetaminophen 5-325mg Tab) 1 tab PO Q12H PRN PRN Reason: Pain, Moderate (4-6) Last Admin: 09/10/20 08:18 Dose: 1 tab Documented by: Simple Syrup (Simple Syrup 15 Ml) 15 ml FEEDTUBE PRN PRN PRN Reason: Hypoglycemia Simple Syrup (Simple Syrup 15 Ml) 30 ml FEEDTUBE PRN PRN PRN Reason: Hypoglycemia Sodium Bicarbonate (Sodium Bicarbonate 325 Mg Tab) 325 mg FEEDTUBE PRN PRN PRN Reason: For Clogged Feeding Tube Sodium Chloride (Sodium Chloride 0.9% 10 Ml Flush Syringe) 10 ml IV BID [facility] Last Admin: 09/10/20 23:08 Dose: 10 ml Documented by: Sodium Chloride (Sodium Chloride 0.9% 10 Ml Flush Syringe) 10 ml IV PRN PRN PRN Reason: LINE FLUSH Sodium Chloride (Sodium Chloride 0.9% 50 Ml Ivpb) 50 ml IV Q24HR@2100 ISIAH Stop: 09/14/20 21:01 Zinc Sulfate (Zinc Sulfate 220 Mg Cap) 220 mg PO BID ISIAH Last Admin: 09/11/20 10:08 Dose: 220 mg Documented by: Physical Examination - Physical Exam Narrative exam: Physical Exam (reviewed in chart to minimize risk of transmission) Constitutional: deferred Head, Ears, Nose: deferred Eyes: deferred Neck: deferred Oral: deferred Cardiovascular: deferred Respiratory: deferred GI: deferred Musculoskeletal: deferred Skin: deferred Hem/Lymphatic: deferred Psych: deferred Neurological: deferred - Constitutional Vitals: Vital Signs Temp Pulse Resp BP Pulse Ox 97.9 F 70 19 100/47 92 09/11/20 07:47 09/11/20 10:14 09/11/20 09:21 09/11/20 10:14 09/11/20 08:03 Temperature -Last 24 Hours Temperature 97.9 F Temperature 98.8 F Temperature 98.7 F Temperature 97.6 F Temperature 97.3 F Results - Labs CBC & Chem 7: 09/09/20 08:28 09/11/20 05:56 Labs: Abnormal lab results 09/10/20 09/10/20 09/10/20 Range/Units 12:12 15:14 16:43 POC ABG pCO2 48.5 H (32.0-48.0) mmHg POC ABG pO2 51.9 L (83-108) mmHg ABG Oxyhemoglobin 85.1 L (94-98) ABG Sodium 135.6 L (136.0-145.0) mmol/L ABG Glucose 310 H (65-95) mg/dL Sodium 132 L (137-145) mmol/L Chloride 93.2 L (98-107) mmol/L BUN 43 H (7-17) mg/dL Creatinine 1.6 H (0.6-1.2) mg/dL Glucose 277 H (65-100) mg/dL POC Glucose 267 H (70-105) mg/dL AST 49 H (5-40) units/L Total Protein 8.3 H (6.3-8.2) g/dL Albumin 3.0 L (3.9-5) g/dL Arterial Blood Glucose 310 H (65-95) mg/dL Arterial Blood Ionized Calcium (4.6-5.3) mg/dL 09/10/20 09/10/20 09/11/20 Range/Units 21:34 23:33 05:56 POC ABG pCO2 (32.0-48.0) mmHg POC ABG pO2 (83-108) mmHg ABG Oxyhemoglobin (94-98) ABG Sodium 135.9 L (136.0-145.0) mmol/L ABG Glucose 341 H (65-95) mg/dL Sodium 133 L (137-145) mmol/L Chloride 94.2 L (98-107) mmol/L BUN 54 H (7-17) mg/dL Creatinine 1.6 H (0.6-1.2) mg/dL Glucose 318 H (65-100) mg/dL POC Glucose 306 H (70-105) mg/dL AST 46 H (5-40) units/L Total Protein (6.3-8.2) g/dL Albumin 2.7 L (3.9-5) g/dL Arterial Blood Glucose 341 H (65-95) mg/dL Arterial Blood Ionized Calcium 4.5 L (4.6-5.3) mg/dL 09/11/20 09/11/20 09/11/20 Range/Units 07:22 09:00 11:33 POC ABG pCO2 (32.0-48.0) mmHg POC ABG pO2 80.1 L (83-108) mmHg ABG Oxyhemoglobin (94-98) ABG Sodium 134.5 L (136.0-145.0) mmol/L ABG Glucose 334 H (65-95) mg/dL Sodium (137-145) mmol/L Chloride (98-107) mmol/L BUN (7-17) mg/dL Creatinine (0.6-1.2) mg/dL Glucose (65-100) mg/dL POC Glucose 305 H 304 H (70-105) mg/dL AST (5-40) units/L Total Protein (6.3-8.2) g/dL Albumin (3.9-5) g/dL Arterial Blood Glucose 334 H (65-95) mg/dL Arterial Blood Ionized Calcium (4.6-5.3) mg/dL - Imaging and Cardiology Chest x-ray: report reviewed, image reviewed (b/l airspace disease) CT scan - chest: report reviewed, image reviewed (no PE. B/L airspace disease, patchy) Assessment and Plan Cultures: SARS CoV2 PCR: Positive 09/08/2020 blood culture: No growth 09/08/2020 urine culture: Usual skin stefania A/P: 75-year-old female with hypertension, diabetes, obesity hypoventilation syndrome was admitted to the hospital with cough, shortness of breath, not feeling well: #Bilateral pneumonia: Secondary to COVID-19, critical disease #Acute hypoxic respiratory failure: On the vent with very high requirements. #Morbid obesity #Hypertension, diabetes #Leukopenia, mild thrombocytopenia, transaminitis: Likely related to COVID-19 #NICOLASA: monitor creatinine. Recs: -Agree with remdesivir x 5 days -IV Tocilizumab ordered given critical COVID-19, mechanical ventilation -IV/PO Dexamethasone 6 mg daily x 10 days -complete empiric CAP abx x 3 days -prophylactic anticoagulation based on d-dimer per hospital protocol -trend ferritin, LDH, d-dimer, CRP every 2-3 days for risk stratification and to assess disease progression Rory Ahuja MD, FACP [facility] ([facility] O: [phone] F: [phone]
--- NOTE | 2020-09-11 12:46 | Progress Note ---
Assessment and Plan Acute hypoxemic respiratory failure Acute respiratory distress syndrome COVID-19 infection Bilateral pneumonia Diabetes Hypertension Obesity Leukopenia Elevated serum inflammatory markers to include D-dimer, ferritin and LDH - for CVL placement - vasopressors for target MAP > 65 mmHg - 1 liter IVNS bolus now - Lantus insulin started - get lower extremity dopplers re: DVT - continue care as below otherwise; - continue Daily SAT and SBT assessment as tolerated - continue to wean supplemental oxygen for target O2 sat's > 90% acutely - VAP bundle addressed - continue lung protective strategies - continue bronchodilators with pulmonary hygiene per RT - wean per pulmonary driven protocols otherwise - avoid nephrotoxins, renally dose all medications - continue accuchecks with glycemic control per SSI (While critically ill target blood glucose of 140-180 mg/dL; avoid hypoglycemia) - sedation prn for target RASS 0 to -1 - continue to avoid benzodiazepine's, reduce the possibility of delirium - complete AB's per ID rec's - prn analgesia per CPOT score - Maintenance of sleep-wake cycle, avoid delirium - continue enteral nutritional support at goal rate as tolerated - G.I. & VTE prophylaxis - PT/OT/ROM exercises - continue mobility protocols for pressure ulcer prophylaxis - Monitor hemodynamics closely - continue other care per attending / other consultants - discharge planning ongoing concurrently COVID SPECIFIC INTERVENTIONS - Remdesivir as per ID/Pulmonary developed protocols (ordered) - to receive Actemra - continue systemic steroids for severe COVID-19 infection empirically - follow repeat COVID tests results - zinc and vitamin C supplementation - Monitor inflammatory markers per facility protocol - ferritin, Ddimer, CRP - therapeutic anticoagulation per system Protocol based on d-dimer and clinical considerations - Continue contact and airborne isolation .... Re-evaluate in am & prn CONDITION: CRITICAL PROGNOSIS: GUARDED CODE STATUS: FULL CODE The high probability of a clinically significant, sudden or life-threatening deterioration of the [respiratory, cardiovascular & neurologic] system(s) required my full and direct attention, intervention and personal management. The aggregate critical care time was [36] minutes without overlap. Time includes spent on; [x] Data Review and interpretation [x] Patient assessment and monitoring of vital signs [x] Documentation [x] Medication orders and management Subjective Date of service: 09/11/20 Interval history: Patient is seen today for: Acute hypoxemic respiratory failure; ARDS; COVID-19 infection; Bilateral pneumonia; DM II; Obesity Seen and examined at bedside; 24hour events reviewed; nursing and respiratory care staff consulted; no adverse overnight events reported to me; resting in bed; remains on MVS (intubated overnight); BP's labile this morning; blood sugars also on high side; no emesis or overt aspiration Objective Vital Signs - 12hr 09/11/20 09/11/20 09/11/20 00:50 01:00 01:10 Temperature Pulse Rate 67 67 66 Respiratory 25 H 25 H 25 H Rate Blood Pressure 115/64 110/66 110/66 O2 Sat by Pulse 93 94 93 Oximetry 09/11/20 09/11/20 09/11/20 01:20 01:30 01:40 Temperature Pulse Rate 67 67 67 Respiratory 25 H 25 H 25 H Rate Blood Pressure 114/62 119/68 119/68 O2 Sat by Pulse 93 92 91 Oximetry 09/11/20 09/11/20 09/11/20 01:50 02:00 02:10 Temperature Pulse Rate 68 70 69 Respiratory 25 H 25 H 25 H Rate Blood Pressure 117/66 112/66 112/66 O2 Sat by Pulse 91 92 91 Oximetry 09/11/20 09/11/20 09/11/20 02:20 02:30 02:40 Temperature Pulse Rate 69 69 69 Respiratory 25 H 25 H 25 H Rate Blood Pressure 113/64 113/65 113/65 O2 Sat by Pulse 93 92 92 Oximetry 09/11/20 09/11/20 09/11/20 02:50 03:00 03:10 Temperature Pulse Rate 71 69 71 Respiratory 25 H 25 H 25 H Rate Blood Pressure 117/63 117/65 117/65 O2 Sat by Pulse 92 91 90 Oximetry 09/11/20 09/11/20 09/11/20 03:20 03:30 03:40 Temperature Pulse Rate 72 70 71 Respiratory 25 H 25 H 25 H Rate Blood Pressure 112/64 116/67 116/67 O2 Sat by Pulse 91 91 91 Oximetry 09/11/20 09/11/20 09/11/20 03:50 04:00 04:10 Temperature 98.8 F Pulse Rate 73 88 94 H Respiratory 25 H 11 L 20 Rate Blood Pressure 119/64 127/65 127/65 O2 Sat by Pulse 93 75 L 79 L Oximetry 09/11/20 09/11/20 09/11/20 04:20 04:30 04:40 Temperature Pulse Rate 85 84 79 Respiratory 25 H 25 H 20 Rate Blood Pressure 117/66 111/64 111/64 O2 Sat by Pulse 92 96 97 Oximetry 09/11/20 09/11/20 09/11/20 04:44 04:50 05:00 Temperature Pulse Rate 83 83 80 Respiratory 25 H 25 H Rate Blood Pressure 124/68 124/68 124/68 O2 Sat by Pulse 96 96 97 Oximetry 09/11/20 09/11/20 09/11/20 05:10 05:20 05:30 Temperature Pulse Rate 81 74 76 Respiratory 25 H 22 25 H Rate Blood Pressure 108/59 112/65 112/65 O2 Sat by Pulse 98 96 98 Oximetry 09/11/20 09/11/20 09/11/20 07:47 08:03 09:21 Temperature 97.9 F Pulse Rate 72 Respiratory 19 Rate Blood Pressure 108/57 O2 Sat by Pulse 92 Oximetry 09/11/20 09/11/20 09/11/20 10:14 12:05 12:15 Temperature 98.9 F Pulse Rate 70 68 Respiratory Rate Blood Pressure 100/47 87/45 O2 Sat by Pulse 99 Oximetry Constitutional: no acute distress, other (elderly obese female with mildly increasded respiratory effort at rest on MVS) Eyes: non-icteric ENT: oropharynx moist, other (ETT 24 cm STEVEN) Neck: supple, other (large circumference) Effort: mildly labored Ascultation: Bilateral: diminished breath sounds, rhonchi Percussion: Bilateral: not dull Cardiovascular: regular rate and rhythm Gastrointestinal: normoactive bowel sounds, soft, non-tender, non-distended (protuberant) Integumentary: normal Extremities: no cyanosis, no edema, pulses normal, no ischemia or petechiae Neurologic: non-focal exam (grossly), pupils equal and round, motor strength normal and, other (sedated) Psychiatric: other (unable to assess) CBC and BMP: 09/09/20 08:28 09/11/20 05:56 ABG, PT/INR, D-dimer: ABG ABG pH 7.373 (7.320-7.450) 09/11/20 09:00 POC ABG pCO2 44.6 mmHg (32.0-48.0) 09/11/20 09:00 POC ABG pO2 80.1 mmHg (83-108) L 09/11/20 09:00 POC ABG HCO3 25.4 09/11/20 09:00 ABG O2 Saturation 95.2 (0-100) 09/11/20 09:00 PT/INR, D-dimer PT 14.2 Sec. (12.2-14.9) 09/08/20 17:37 INR 1.04 (0.87-1.13) 09/08/20 17:37 D-Dimer 741.67 ng/mlDDU (0-234) H 09/08/20 17:37 Abnormal lab findings: Abnormal Labs 09/08/20 09/08/20 09/08/20 17:37 17:37 17:37 WBC 4.3 L Hgb Hct Plt Count 106 L Lymph % (Auto) [place] % (Auto) 7.5 H Lymph # (Auto) 0.6 L Seg Neutrophils % 77.4 H D-Dimer 741.67 H POC ABG pCO2 POC ABG pO2 ABG Oxyhemoglobin ABG Sodium ABG Glucose Sodium 129 L Chloride 91.9 L BUN 32 H Creatinine 1.5 H Glucose 200 H POC Glucose Calcium 8.1 L Ferritin AST 49 H Lactate Dehydrogenase C-Reactive Protein Total Protein Albumin 2.7 L Arterial Blood Glucose Arterial Blood Ionized Calcium Ur Specific [place] Coronavirus (PCR) 09/08/20 09/08/20 09/08/20 17:37 17:37 22:24 WBC Hgb Hct Plt Count Lymph % (Auto) [place] % (Auto) Lymph # (Auto) Seg Neutrophils % D-Dimer POC ABG pCO2 POC ABG pO2 ABG Oxyhemoglobin ABG Sodium ABG Glucose Sodium Chloride BUN Creatinine Glucose 201 H POC Glucose Calcium Ferritin 731.2 H AST Lactate Dehydrogenase 396 H C-Reactive Protein 7.00 H Total Protein Albumin Arterial Blood Glucose Arterial Blood Ionized Calcium Ur Specific [place] 1.035 H Coronavirus (PCR) 09/08/20 09/09/20 09/09/20 23:35 07:30 08:28 WBC 3.4 L Hgb 15.5 H Hct 47.1 H Plt Count 95 L Lymph % (Auto) 9.5 L [place] % (Auto) Lymph # (Auto) 0.3 L Seg Neutrophils % 85.2 H D-Dimer POC ABG pCO2 POC ABG pO2 ABG Oxyhemoglobin ABG Sodium ABG Glucose Sodium Chloride BUN Creatinine Glucose POC Glucose 188 H 281 H Calcium Ferritin AST Lactate Dehydrogenase C-Reactive Protein Total Protein Albumin Arterial Blood Glucose Arterial Blood Ionized Calcium Ur Specific [place] Coronavirus (PCR) 09/09/20 09/09/20 09/09/20 08:28 09:00 11:48 WBC Hgb Hct Plt Count Lymph % (Auto) [place] % (Auto) Lymph # (Auto) Seg Neutrophils % D-Dimer POC ABG pCO2 POC ABG pO2 ABG Oxyhemoglobin ABG Sodium ABG Glucose Sodium 130 L Chloride 93.5 L BUN 31 H Creatinine 1.3 H Glucose 266 H POC Glucose 354 H Calcium Ferritin AST 48 H Lactate Dehydrogenase C-Reactive Protein Total Protein Albumin 2.8 L Arterial Blood Glucose Arterial Blood Ionized Calcium Ur Specific [place] Coronavirus (PCR) Positive A 09/09/20 09/09/20 09/10/20 17:21 21:15 08:00 WBC Hgb Hct Plt Count Lymph % (Auto) [place] % (Auto) Lymph # (Auto) Seg Neutrophils % D-Dimer POC ABG pCO2 POC ABG pO2 ABG Oxyhemoglobin ABG Sodium ABG Glucose Sodium Chloride BUN Creatinine Glucose POC Glucose 332 H 226 H 240 H Calcium Ferritin AST Lactate Dehydrogenase C-Reactive Protein Total Protein Albumin Arterial Blood Glucose Arterial Blood Ionized Calcium Ur Specific [place] Coronavirus (PCR) 09/10/20 09/10/20 09/10/20 12:12 15:14 16:43 WBC Hgb Hct Plt Count Lymph % (Auto) [place] % (Auto) Lymph # (Auto) Seg Neutrophils % D-Dimer POC ABG pCO2 48.5 H POC ABG pO2 51.9 L ABG Oxyhemoglobin 85.1 L ABG Sodium 135.6 L ABG Glucose 310 H Sodium 132 L Chloride 93.2 L BUN 43 H Creatinine 1.6 H Glucose 277 H POC Glucose 267 H Calcium Ferritin AST 49 H Lactate Dehydrogenase C-Reactive Protein Total Protein 8.3 H Albumin 3.0 L Arterial Blood Glucose 310 H Arterial Blood Ionized Calcium Ur Specific [place] Coronavirus (PCR) 09/10/20 09/10/20 09/11/20 21:34 23:33 05:56 WBC Hgb Hct Plt Count Lymph % (Auto) [place] % (Auto) Lymph # (Auto) Seg Neutrophils % D-Dimer POC ABG pCO2 POC ABG pO2 ABG Oxyhemoglobin ABG Sodium 135.9 L ABG Glucose 341 H Sodium 133 L Chloride 94.2 L BUN 54 H Creatinine 1.6 H Glucose 318 H POC Glucose 306 H Calcium Ferritin AST 46 H Lactate Dehydrogenase C-Reactive Protein Total Protein Albumin 2.7 L Arterial Blood Glucose 341 H Arterial Blood Ionized Calcium 4.5 L Ur Specific [place] Coronavirus (PCR) 09/11/20 09/11/20 09/11/20 07:22 09:00 11:33 WBC Hgb Hct Plt Count Lymph % (Auto) [place] % (Auto) Lymph # (Auto) Seg Neutrophils % D-Dimer POC ABG pCO2 POC ABG pO2 80.1 L ABG Oxyhemoglobin ABG Sodium 134.5 L ABG Glucose 334 H Sodium Chloride BUN Creatinine Glucose POC Glucose 305 H 304 H Calcium Ferritin AST Lactate Dehydrogenase C-Reactive Protein Total Protein Albumin Arterial Blood Glucose 334 H Arterial Blood Ionized Calcium Ur Specific [place] Coronavirus (PCR) Chest x-ray: image reviewed (ETT in good position) Allied health notes reviewed: nursing
[2020-09-11] MEDS ORDERED: ALBUMIN HUMAN 25% (12.5 GM/50 ML) INJ IV ONE (14:00)
[2020-09-11] MEDS ORDERED: SODIUM CHLORIDE 0.9% 1000 ML 1,000 ML IV SCH ×2 (14:30→20:45)
[2020-09-11 14:52] LABS: C-Reactive Protein 5.5 mg/dL (0.00-1.30)
--- NOTE | 2020-09-11 18:02 | XRay Report ---
CHEST 1 VIEW 09/11/2020 4:53 PM INDICATION / CLINICAL INFORMATION: central line placement. COMPARISON: None available. FINDINGS: SUPPORT DEVICES: Endotracheal tube is in stable position. Interval placement of right IJ central line with catheter tip projecting over the right atrium. Esophagogastric tube tip terminates below the le janis of the radiograph. HEART / MEDIASTINUM: No significant abnormality. LUNGS / PLEURA: Stable bilateral airspace opacities. No pneumothorax. ADDITIONAL FINDINGS: No significant additional findings. IMPRESSION: 1. Central line in expected position. No pneumothorax. 2. Stable bilateral airspace opacities. Signer Name: Jama Bell MD Signed: 09/11/2020 5:58 PM Workstation Name: [id number]
[2020-09-11] MEDS: NORepinephrine/NS 4 MG-250 ML 4 MG/250 ML BAG IV SCH (18:08)
[2020-09-11] MEDS ORDERED: ATROPINE 0.1% (1 MG/10 ML) CARDIAC SYRINGE ONE ×2 (19:15→22:09)
[2020-09-11] MEDS ORDERED: ATROPINE 1 MG/ML VIAL IV ONE (20:00)
[2020-09-11 20:23] LABS: Calcium 7.9 mg/dL (8.4-10.2)
--- NOTE | 2020-09-11 21:23 | Procedure Note ---
Date of procedure: 09/11/20 Pre-op diagnosis: COVID-19 pneumonia, acute hypoxic respiratory failure, sepsis Post-op diagnosis: same Procedure: Right radial jose inserted using sterile technique. Ulnar pulse palpable. Shawn test completed. Area prepped with chlorhexidine and the site was infiltrated with 1ml 1% lidocaine. Arterial line was placed using ultrasound; catheter advanced without difficulty. Line was sutured, biopatch placed and tegaderm dressing applied. Arm board vijaya melodie. Arterial waveform observed on bedside monitor. Line flushed and zeroed. RN at bedside. Pt tolerated procedure well. Anesthesia: local Surgeon: VERNON ELENA Underwriter Solicitation Director: ZAC CARVER Estimated blood loss: minimal Condition: critical Disposition: ICU
--- NOTE | 2020-09-11 21:26 | Procedure Note ---
Date of procedure: 09/11/20 Pre-op diagnosis: Sepsis, COVID-19 pneumonia, acute hypoxic respiratory failure Post-op diagnosis: same Procedure: Right IJ CVL Consent obtained for right IJ CVL from daughter over the phone RIJ CVL catheter placed utilizing ultrasound guidance under sterile technique without difficulty Area prepped with chlorhexidine/ full body drape utilized. A guidewire inserted, line tract dilated, catheter advanced over wire. Line was sutured, biopatch placed and tegaderm dressing applied. Chest xray to confirm placement. No pneumothorax. RN called to bedside. Pt tolerated procedure well. VS remained stable throughout procedure. (time spent placing line not included in daily critical care time) Anesthesia: local Surgeon: VERNON ELENA Senior Telecommunications Consultant: ZAC CARVER Estimated blood loss: minimal Condition: critical Disposition: ICU
[2020-09-11] MEDS ORDERED: PHENYLEPHRINE 10 MG/1 ML INJ SDV IV SCH (21:30)
--- NOTE | 2020-09-11 21:32 | Progress Note ---
Assessment and Plan Assessment and plan: 72-year-old female with HTN, DM, OSH, OA admitted for COVID-19 pneumonia, sepsis, acute hypoxic respiratory failure, NICOLASA Neuro: Acute metabolic encephalopathy -Avoid delirium -Sedated with fentanyl/propofol -RASS goal 0 to -1 -Daily SAT -Avoid delirium Cardio: SB, H/O HTN, hypotension -Atropine at bedside -Hold home Coreg -Blood pressure monitor per protocol -Hydralazine IV as needed for SBP greater than 160 -A-line placed 09/11 -Consider cardiology consult -Given 1 L normal saline bolus, albumin x1 Respiratory: Acute hypoxic respiratory failure -Intubated 09/10 -Presented with pneumonia -CCM consulted, appreciate recommendations -VAP bundle -Wean mechanical ventilation as tolerated -Serial ABGs -Serial CXRs -Current vent settings: CMV, tidal volume 450, rate 825, PEEP of 18, 100% FiO2 GI: Morbid obesity, TF, cholelithiasis, transaminitis -Nutrition consulted, appreciate recommendations -Accu-Cheks every 6 -SSI, long-acting insulin -PPI -BR: Colace -Evident on CT angio chest -Outpatient follow-up with PCP for cholelithiasis -Transaminitis 6 secondary to COVID-19 infection -Trend LFTs : Acute kidney injury 2/2 VMN -Presented with a BUN/creatinine of 1.5/32 -Avoid nephrotoxic medication -Consider renal consult if needed -Strict intake and output -Daily weights -Trend BMP -24-hour net +370 Heme: Leukopenia, thrombocytopenia, elevated D-dimer -Leukopenia likely secondary to COVID-19 infection -Thrombocytopenia likely secondary to sepsis -09/08 CTA chest shows no evidence of pulmonary embolism, multifocal airspace opacities with nodular densities and groundglass opacities in bilateral lungs, cholelithiasis, cholelithiasis -Bilateral lower extremity Doppler pending ID: Sepsis, COVID-19 pneumonia -COVID-19 PCR +09/09 -Infectious disease consulted, appreciate recommendations -Remdesivir x5 days -IV tocilizumab -Dexamethasone 09/10 through 09/19 -Remdesivir 09/11 through 09/14 -Azithromycin 09/09 through 09/13, Rocephin 09/09 through 09/13 -Contact/droplet precaution -Pulmonary hygiene -Trend COVID-19 inflammatory markers -Anticoagulation per protocol -Vasopressor support as needed for map goal of 65 Endo: h/o DM -SSI, Lantus -Accu-Cheks every 6 -Avoid hypoglycemia Disposition: ICU Full code Lines: A-line, IJ TLC The high probability of a clinically significant, sudden or life threatening deterioration of the [multi] system(s) required my full and direct attention, intervention and personal management. The aggregate critical care time was [60] minutes. This time is in addition to time spent performing reported procedures but includes the following: [x] Data Review and interpretation [x] Patient assessment and monitoring of vital signs [x] Documentation [x] Medication orders and management History Interval history: This 72-year-old female with HTN, DM, OHS, OA presents the emergency department on 09/08 with generalized weakness, loss of appetite, dry cough, loss of sense of smell, smell and taste, shortness of breath, malaise, decreased exercise tolerance over the past 3 days with progressive worsening symptoms. Patient's daughter provided additional history and stated patient's blood glucose level was being checked and the patient "threw back her head and passed out". EMS was notified and upon arrival patient was found to be in distress transported to [facility]. Patient was evaluated emergency department and had a pulse ox on room air of 82% consistent with acute hypoxic respiratory failure, CXR showed bilateral pneumonia, NICOLASA with ATN SSO to COVID-19 infection. Patient was admitted to the medical floor initiated COVID-19 protocol as well as pneumonia protocol. 09/10: Patient was intubated by ED physician and transferred to the ICU. 09/11: Infectious disease was consulted today, patient was placed on vasopressors due to hypotension despite receiving 1 L IV fluid, Lantus started, bilateral lower extremity Doppler ultrasound ordered, A-line and CVL placed. Late in the evening patient was exhibiting sinus bradycardia, EKG ordered along with stat CMP which showed NICOLASA. Stat ABG ordered which showed elevated PaO2 at 146 otherwise unremarkable on 100% FiO2. Hospitalist Physical - Constitutional Vitals: Temp Pulse Resp BP Pulse Ox 97.6 F 63 25 H 90/43 99 09/11/20 20:00 09/11/20 21:19 09/11/20 20:31 09/11/20 21:19 09/11/20 21:10 General appearance: Present: no acute distress, well-nourished - EENT Eyes: Present: PERRL - Neck Neck: Present: normal ROM - Respiratory Respiratory effort: normal - Cardiovascular Rhythm: regular - Extremities Extremities: no ischemia, pulses intact, pulses symmetrical Peripheral Pulses: within normal limits - Abdominal General gastrointestinal: soft, non-tender - Integumentary Integumentary: Present: warm, dry - Psychiatric Psychiatric: other (sedated) - Neurologic Neurologic: other (sedated, moves BUE) - Allied Health Allied health notes reviewed: nursing, RT, social work HEART Score - HEART Score Troponin: Troponin T < 0.010 ng/mL (0.00-0.029) 09/09/20 00:39 Results - Labs CBC & Chem 7: 09/09/20 08:28 09/11/20 Unknown Labs: Laboratory Last Values WBC 3.4 K/mm3 (4.5-11.0) L 09/09/20 08:28 RBC 5.01 M/mm3 (3.65-5.03) 09/09/20 08:28 Hgb 15.5 gm/dl (10.1-14.3) H 09/09/20 08:28 Hct 47.1 % (30.3-42.9) H 09/09/20 08:28 MCV 94 fl (79-97) 09/09/20 08:28 MCH 31 pg (28-32) 09/09/20 08:28 MCHC 33 % (30-34) 09/09/20 08:28 RDW 14.2 % (13.2-15.2) 09/09/20 08:28 Plt Count 95 K/mm3 (140-440) L 09/09/20 08:28 Lymph % (Auto) 9.5 % (13.4-35.0) L 09/09/20 08:28 [place] % (Auto) 4.7 % (0.0-7.3) 09/09/20 08:28 Eos % (Auto) 0.0 % (0.0-4.3) 09/09/20 08:28 Baso % (Auto) 0.6 % (0.0-1.8) 09/09/20 08:28 Lymph # (Auto) 0.3 K/mm3 (1.2-5.4) L 09/09/20 08:28 [place] # (Auto) 0.2 K/mm3 (0.0-0.8) 09/09/20 08:28 Eos # (Auto) 0.0 K/mm3 (0.0-0.4) 09/09/20 08:28 Baso # (Auto) 0.0 K/mm3 (0.0-0.1) 09/09/20 08:28 Seg Neutrophils % 85.2 % (40.0-70.0) H 09/09/20 08:28 Seg Neutrophils # 2.9 K/mm3 (1.8-7.7) 09/09/20 08:28 PT 14.2 Sec. (12.2-14.9) 09/08/20 17:37 INR 1.04 (0.87-1.13) 09/08/20 17:37 APTT 29.2 Sec. (24.2-36.6) 09/08/20 17:37 D-Dimer 1324.85 ng/mlDDU (0-234) H 09/11/20 20:30 ABG pH 7.397 (7.320-7.450) 09/11/20 19:00 POC ABG pCO2 36.6 mmHg (32.0-48.0) 09/11/20 19:00 POC ABG pO2 146.4 mmHg (83-108) H 09/11/20 19:00 POC ABG HCO3 22.0 09/11/20 19:00 ABG O2 Saturation 99.0 (0-100) 09/11/20 19:00 POC ABG Base Excess -2.4 09/11/20 19:00 ABG Hemoglobin 12.8 (12.0-17.5) 09/11/20 19:00 ABG Oxyhemoglobin 98.3 (94-98) H 09/11/20 19:00 ABG Methemoglobin 0.3 (0.0-1.5) 09/11/20 19:00 ABG Sodium 137.1 mmol/L (136.0-145.0) 09/11/20 19:00 ABG Potassium 4.3 mmol/L (3.40-4.50) 09/11/20 19:00 ABG Chloride 104.0 mmol/L (98-107) 09/11/20 19:00 ABG Glucose 267 mg/dL (65-95) H 09/11/20 19:00 Carboxyhemoglobin 0.4 (0.5-1.5) L 09/11/20 19:00 FiO2 % 100.0 09/11/20 19:00 Sodium 138 mmol/L (137-145) 09/11/20 Unknown Potassium 4.7 mmol/L (3.6-5.0) 09/11/20 Unknown Chloride 101.5 mmol/L (98-107) 09/11/20 Unknown Carbon Dioxide 24 mmol/L (22-30) 09/11/20 Unknown Anion Gap 17 mmol/L 09/11/20 Unknown BUN 58 mg/dL (7-17) H 09/11/20 Unknown Creatinine 1.8 mg/dL (0.6-1.2) H 09/11/20 Unknown Estimated GFR 33 ml/min 09/11/20 Unknown BUN/Creatinine Ratio 32 % 09/11/20 Unknown Glucose 279 mg/dL (65-100) H 09/11/20 Unknown POC Glucose 296 mg/dL (70-105) H 09/11/20 18:17 Lactic Acid 1.80 mmol/L (0.7-2.0) 09/08/20 20:09 Calcium 7.9 mg/dL (8.4-10.2) L 09/11/20 Unknown Magnesium 1.90 mg/dL (1.7-2.3) 09/08/20 17:37 Ferritin 1434.0 ng/mL (10.0-200.0) H 09/11/20 Unknown Total Bilirubin 0.30 mg/dL (0.1-1.2) 09/11/20 05:56 AST 46 units/L (5-40) H 09/11/20 05:56 ALT 22 units/L (7-56) 09/11/20 05:56 Alkaline Phosphatase 64 units/L (35-129) 09/11/20 05:56 Lactate Dehydrogenase 755 units/L (91-180) H 09/11/20 05:56 Troponin T < 0.010 ng/mL (0.00-0.029) 09/09/20 00:39 C-Reactive Protein 5.50 mg/dL (0.00-1.30) H 09/11/20 05:56 NT-Pro-B Natriuret Pep 503.6 pg/mL (0-900) 09/08/20 17:37 Total Protein 6.9 g/dL (6.3-8.2) 09/11/20 05:56 Albumin 2.7 g/dL (3.9-5) L 09/11/20 05:56 Albumin/Globulin Ratio 0.6 % 09/11/20 05:56 Lipase 47 units/L (13-60) 09/08/20 17:37 Procalcitonin 0.50 ng/mL (<0.15) 09/08/20 17:37 Arterial Blood Glucose 267 mg/dL (65-95) H 09/11/20 19:00 Arterial Blood Ionized Calcium 4.6 mg/dL (4.6-5.3) 09/11/20 19:00 Urine Color Yellow (Yellow) 09/08/20 22:24 Urine Turbidity Clear (Clear) 09/08/20 22:24 Urine pH 6.0 (5.0-7.0) 09/08/20 22:24 Ur Specific [place] 1.035 (1.003-1.030) H 09/08/20 22:24 Urine Protein >500 mg/dL (Negative) 09/08/20 22:24 Urine Glucose (UA) Neg mg/dL (Negative) 09/08/20 22:24 Urine Ketones Neg mg/dL (Negative) 09/08/20 22:24 Urine Blood Sm (Negative) 09/08/20 22:24 Urine Nitrite Neg (Negative) 09/08/20 22:24 Urine Bilirubin Neg (Negative) 09/08/20 22:24 Urine Urobilinogen < 2.0 mg/dL (<2.0) 09/08/20 22:24 Ur Leukocyte Esterase Neg (Negative) 09/08/20 22:24 Urine WBC (Auto) 1.0 /HPF (0.0-6.0) 09/08/20 22:24 Urine RBC (Auto) 1.0 /HPF (0.0-6.0) 09/08/20 22:24 U Epithel Cells (Auto) 2.0 /HPF (0-13.0) 09/08/20 22:24 Urine Mucus Few /HPF 09/08/20 22:24 Urine Opiates Screen Presumptive negative 09/08/20 22:24 Urine Methadone Screen Presumptive negative 09/08/20 22:24 Ur Barbiturates Screen Presumptive negative 09/08/20 22:24 Ur Phencyclidine Scrn Presumptive negative 09/08/20 22:24 Ur Amphetamines Screen Presumptive negative 09/08/20 22:24 U Benzodiazepines Scrn Presumptive negative 09/08/20 22:24 Urine Cocaine Screen Presumptive negative 09/08/20 22:24 U Marijuana (THC) Screen Presumptive negative 09/08/20 22:24 Drugs of Abuse Note Disclamer 09/08/20 22:24 Coronavirus (PCR) Positive (Negative) A 09/09/20 09:00 Microbiology: Microbiology 09/08/20 17:32 Peripheral/Venous Blood Culture - Preliminary NO GROWTH AFTER 72 HOURS 09/08/20 17:32 Peripheral/Venous Blood Culture - Preliminary NO GROWTH AFTER 72 HOURS Begum/IV: Voiding Method External Female Catheter Active Medications - Current Medications Current Medications: Generic Name Dose Route Start Last Admin Trade Name Freq PRN Reason Stop Dose Admin Acetaminophen 650 mg 09/08/20 20:23 Acetaminophen 325 Mg Tab PO Q4H PRN Pain MILD(1-3)/Fever >100.5/CORTEZ Albuterol 2.5 mg 09/08/20 20:23 Albuterol 2.5 Mg/3 Ml Nebu IH Q4HRT PRN Shortness Of Breath Lipase/Protease/Amylase 1 each 09/11/20 11:45 Lipase 10,500/Protease 25,000/Amylase 43,750 (Units) Dr Luis Manuel HURTADOTUBE PRN PRN For Clogged Feeding Tube Ascorbic Acid 500 mg 09/08/20 22:00 09/11/20 21:18 Ascorbic Acid 500 Mg Tab PO 500 mg BID ISIAH Administration Carvedilol 3.125 mg 09/09/20 22:00 09/11/20 21:19 Carvedilol 3.125 Mg Tab PO Not Given BID ISIAH Cholecalciferol 1,000 unit 09/09/20 10:00 09/11/20 10:08 Cholecalciferol (Vit D3) 1000 Unit (25 Mcg) Tab PO 1,000 unit QDAY ISIAH Administration Dexamethasone 8 mg 09/10/20 17:00 09/11/20 10:08 Dexamethasone 4 Mg/Ml Vial IV 09/19/20 10:01 8 mg DAILY ISIAH Administration Famotidine 20 mg 09/11/20 10:00 09/11/20 10:17 Famotidine 20 Mg Tab PO 20 mg QDAY ISIAH Administration Famotidine 20 mg 09/11/20 10:00 09/11/20 21:18 Famotidine 20 Mg/2 Ml Inj IV 20 mg BID ISIAH Administration Fentanyl 50 mcg 09/10/20 22:12 09/11/20 09:21 Fentanyl 100 Mcg/2 Ml Inj IV 50 mcg Q10MIN PRN Administration ANALGESIA Guaifenesin 10 ml 09/09/20 16:01 09/10/20 05:14 Guaifenesin Dm 200/20 Mg Oral Liqd 10 Ml PO 10 ml Q4H PRN Administration Cough Heparin Sodium (Porcine) 5,000 unit 09/08/20 22:00 09/11/20 21:18 Heparin 5,000 Unit/1 Ml Vial SUB-Q 5,000 unit Q12HR ISIAH Administration Hydromorphone HCl 0.5 mg 09/08/20 20:23 Hydromorphone 1 Mg/1 Ml Inj IV Q12H PRN Pain , Severe (7-10) Ceftriaxone Sodium 2 gm in 100 mls @ 200 mls/hr 09/09/20 10:00 09/11/20 10:05 Rocephin/Ns 2 Gm/100 Ml IV 09/13/20 10:29 200 mls/hr Q24HR ISIAH Administration Protocol Azithromycin 500 mg in 250 mls @ 250 mls/hr 09/09/20 10:00 09/11/20 10:13 Zithromax/Ns IV 09/13/20 10:59 250 mls/hr Q24HR ISIAH Administration Protocol REMDESIVIR 200 mg/ Sodium 250 mls @ 500 mls/hr 09/10/20 16:33 Chloride IV 09/10/20 17:02 ONCE ONE REMDESIVIR 100 mg/ Sodium 250 mls @ 500 mls/hr 09/11/20 21:00 Chloride IV 09/14/20 21:29 Q24HR@2100 ISIAH Propofol 1,000 mg in 100 mls @ 4.47 mls/hr 09/10/20 23:00 09/11/20 12:45 Diprivan 10 Mg/Ml IV 5 mcg/kg/min TITR ISIAH 4.47 mls/hr Titration Protocol 5 MCG/KG/MIN Fentanyl Citrate 2,000 mcg in 100 mls @ 7.45 mls/hr 09/10/20 23:00 09/11/20 18:17 Fentanyl Drip Premix IV 4 mcg/kg/hr TITR ISIAH 29.8 mls/hr Administration Protocol 1 MCG/KG/HR TOCILIZUMAB 800 mg/ Sodium 140 mls @ 120 mls/hr 09/11/20 16:30 Chloride IV 09/11/20 17:39 ONCE ONE Norepinephrine 4 mg in 250 mls @ 7.5 mls/hr 09/11/20 17:00 09/11/20 20:28 Levophed Drip 4 Mg/Ns 250 Ml IV 0 mcg/min TITR ISIAH 0 mls/hr Titration Protocol 2 MCG/MIN Sodium Chloride 1,000 mls @ 10 mls/hr 09/11/20 20:45 Nacl 0.9% 1000 Ml IV DIRECT ISIAH Vasopressin 20 unit/ Sodium 101 mls @ 9.09 mls/hr 09/11/20 22:00 Chloride IV TITR ISIAH Protocol 0.03 UNITS/MIN Insulin Human Lispro 0 unit 09/11/20 12:00 09/11/20 18:18 Insulin Lispro 100 Unit/Ml SUB-Q 6 unit Q6HR ISIAH Administration Protocol Ondansetron HCl 4 mg 09/08/20 20:23 Ondansetron 4 Mg/2 Ml Inj IV Q8H PRN Nausea And Vomiting Oxycodone/Acetaminophen 1 tab 09/08/20 20:23 09/10/20 08:18 Oxycodone /Acetaminophen 5-325mg Tab PO 1 tab Q12H PRN Administration Pain, Moderate (4-6) Simple Syrup 15 ml 09/11/20 11:45 Simple Syrup 15 Ml FEEDTUBE PRN PRN Hypoglycemia Simple Syrup 30 ml 09/11/20 11:45 Simple Syrup 15 Ml FEEDTUBE PRN PRN Hypoglycemia Sodium Bicarbonate 325 mg 09/11/20 11:45 Sodium Bicarbonate 325 Mg Tab FEEDTUBE PRN PRN For Clogged Feeding Tube Sodium Chloride 10 ml 09/08/20 22:00 09/11/20 21:18 Sodium Chloride 0.9% 10 Ml Flush Syringe IV 10 ml BID ISIAH Administration Sodium Chloride 10 ml 09/08/20 20:23 Sodium Chloride 0.9% 10 Ml Flush Syringe IV PRN PRN LINE FLUSH Sodium Chloride 50 ml 09/10/20 21:00 Sodium Chloride 0.9% 50 Ml Ivpb IV 09/14/20 21:01 Q24HR@2100 [facility] Zinc Sulfate 220 mg 09/08/20 22:00 09/11/20 21:18 Zinc Sulfate 220 Mg Cap PO 220 mg BID ISIAH Administration Nutrition/Malnutrition Assess - Dietary Evaluation Nutrition/Malnutrition Findings: Nutrition Notes Start: 09/11/20 11:37 Freq: Status: Active Protocol: Document 09/11/20 11:37 (Rec: 09/11/20 11:45 MK [id number]) Nutrition Notes Need for Assessment generated from: MD Order Initial or Follow up Assessment Current Diagnosis Acute Kidney Injury, Respiratory Failure Other Pertinent Diagnosis pneu, COVID Current Diet No diet Labs/Tests Na 133 BUN 54 Cr 1.6 BG 318 Pertinent Medications Propofol at 17.88 ml/hr ( 472kcal) Decadron Lantus Height 5 ft 8 in Weight 149 kg [place] Body Weight (kg) 63.63 BMI 49.9 Weight Status Morbidly Obese Subjective/Other Information MD order for TF. Pt on vent. Burn Absent Trauma Absent Current % PO Negligible Minimum of two criteria No physical signs of malnutrition #1 Nutrition Diagnosis Inadequate oral intake Etiology ARF As Evidenced by Signs and Symptoms pt on vent and unable to consume PO Is patient on ventilator? Yes Is Patient Ambulatory and/or Out of Bed No REE-([facility]-confined to bed) 2457.420 Kcal/Kg value to use for calculation 13 Approximate Energy Requirements Using 1937 kcal/Kg Calculation Used for Recommendations Kcal/kg Additional Notes Protein: up to 2.5g/kg IBW (up to 159g) Fluid: 1 ml/kcal or per Nutrition Intervention Change Diet Order: Start TF Nutrition Support: Glucerna 1.2 at 65 ml/hr Flush 100 ml q4h or per MD Kcal 1,872 Protein (gm) 94 Carbohydrates (gm) 179 Fat (gm) 94 Fluid (mL) 1,256 Goal #1 Meet at least 75% of protein and energy needs via TF Anticipated Discharge Needs: Unable to determine at this time Follow-Up By: 09/13/20 Additional Comments FU for TF start and tolerance
[2020-09-11] MEDS ORDERED: hydrALAZINE 20 MG/1 ML INJ IV PRN (21:33)
[2020-09-11] MEDS ORDERED: PHENYLEPHRINE 100 MG in SODIUM CHLORIDE 0.9% 90 ML IV SCH (22:15)
[2020-09-11] MEDS: DOPamine/D5W 800 MG/250 ML 800 MG/250 ML BAG IV SCH (22:53)
[2020-09-12] MEDS: INSULIN LISPRO 100 UNIT/ML SUB-Q SCH ×4 (00:15→18:01)
[2020-09-12] MEDS: fentaNYL DRIP Premix 2,000 MCG/100 ML BAG IV SCH ×6 (02:05→19:16)
[2020-09-12] MEDS: cefTRIAXone/NS 2 GM/100 ML 2 GM/100 ML BAG IV SCH (09:00)
[2020-09-12] MEDS: FAMOTIDINE 20 MG/2 ML INJ IV SCH ×2 (09:00→21:05)
[2020-09-12] MEDS: dexAMETHasone 4 MG/ML VIAL IV SCH (09:00)
[2020-09-12] MEDS: HEPARIN 5,000 UNIT/1 ML VIAL SUB-Q SCH ×2 (09:01→21:04)
[2020-09-12] MEDS: ASCORBIC ACID 500 MG TAB PO SCH ×2 (09:10→21:04)
[2020-09-12] MEDS: ZINC SULFATE 220 MG CAP PO SCH ×2 (09:10→21:05)
[2020-09-12] MEDS: CHOLECALCIFEROL (VIT D3) 1000 UNIT (25 mcg) TAB PO SCH (09:10)
[2020-09-12] MEDS: INSULIN GLARGINE 100 UNITS/ML SUB-Q SCH (09:32)
[2020-09-12] MEDS: AZITHROMYCIN/NS 500 MG/250 ML 500 MG/250 ML BAG IV SCH (10:15)
--- NOTE | 2020-09-12 10:35 | Electrocardiograph Report ---
[facility] Test Date: 2020-09-11 Test Time: 22:26:22 Pat Name: NEREYDA CHAPA Department: Room: A260 1 Gender: F Dispute Resolution Analyst: Kaitlin [place] : 1945 Requested By: GARRISON ZHANG Order Number: [id number] Reading MD: Juan Gregory Measurements Intervals [place] Rate: 59 P: 28 WV: 187 QRS: -10 QRSD: 110 T: 8 QT: 459 QTc: 456 Interpretive Statements Sinus bradycardia Left ventricular hypertrophy Compared to ECG 09/08/2020 17:24:37 rate is slower. Electronically Signed On 09-12-2020 10:34:40 EDT by Juan Gregory
[2020-09-12 11:13] LABS: Calcium 8.9 mg/dL (8.4-10.2)
--- NOTE | 2020-09-12 12:45 | Progress Note ---
Assessment and Plan Cultures: SARS CoV2 PCR: Positive 09/08/2020 blood culture: No growth 09/08/2020 urine culture: Usual skin stefania A/P: 75-year-old female with hypertension, diabetes, obesity hypoventilation syndrome was admitted to the hospital with cough, shortness of breath, not feeling well: #Shock: no clear evidence of bacterial infection. Continue empiric CAP coverage. Probably related to severe/critical COVID. #Bilateral pneumonia: Secondary to COVID-19, critical disease. #Acute hypoxic respiratory failure: On the vent with very high requirements. #Morbid obesity #Hypertension, diabetes #Leukopenia, mild thrombocytopenia, transaminitis: Likely related to COVID-19 #NICOLASA: monitor creatinine. Recs: -Continue remdesivir x 5 days -IV Tocilizumab ordered on 09/11/2020, unclear if administered yet, will d/w pharmacy -continue steroids -complete empiric CAP abx x 5 days -prophylactic anticoagulation based on d-dimer per hospital protocol -trend ferritin, LDH, d-dimer, CRP every 2-3 days for risk stratification and to assess disease progression Rory Ahuja MD, FACP [facility] O: [phone] F: [phone] Subjective Date of service: 09/12/20 Principal diagnosis: Acute respiratory failure with hypoxia, Covid pneumonia Interval history: No fever. Remains on the vent, FiO2 80%, PEEP of 18. Also on pressors. Objective - Exam Narrative Exam: Physical Exam (reviewed in chart to minimize risk of transmission) Constitutional: deferred Head, Ears, Nose: deferred Eyes: deferred Neck: deferred Oral: deferred Cardiovascular: deferred Respiratory: deferred GI: deferred Musculoskeletal: deferred Skin: deferred Hem/Lymphatic: deferred Psych: deferred Neurological: deferred - Constitutional Vitals: Vital Signs Temp Pulse Resp BP Pulse Ox 98 F 47 L 25 H 179/71 99 09/12/20 09:06 09/12/20 11:04 09/12/20 08:00 09/12/20 11:04 09/12/20 11:04 Temperature -Last 24 Hours Temperature 98 F Temperature 98.7 F Temperature 97.6 F Temperature 97.8 F - Labs CBC & Chem 7: 09/09/20 08:28 09/12/20 08:43 Labs: Abnormal lab results 09/11/20 09/11/20 09/11/20 Range/Units 05:56 18:17 19:00 D-Dimer (0-234) ng/mlDDU POC ABG pO2 146.4 H (83-108) mmHg ABG Hemoglobin (12.0-17.5) ABG Oxyhemoglobin 98.3 H (94-98) ABG Glucose 267 H (65-95) mg/dL Carboxyhemoglobin 0.4 L (0.5-1.5) BUN (7-17) mg/dL Creatinine (0.6-1.2) mg/dL Glucose (65-100) mg/dL POC Glucose 296 H (70-105) mg/dL Calcium (8.4-10.2) mg/dL Ferritin (10.0-200.0) ng/mL Lactate Dehydrogenase 755 H (91-180) units/L C-Reactive Protein 5.50 H (0.00-1.30) mg/dL Albumin (3.9-5) g/dL Arterial Blood Glucose 267 H (65-95) mg/dL 09/11/20 09/11/20 09/11/20 Range/Units 20:30 22:23 Unknown D-Dimer 1324.85 H (0-234) ng/mlDDU POC ABG pO2 (83-108) mmHg ABG Hemoglobin (12.0-17.5) ABG Oxyhemoglobin (94-98) ABG Glucose (65-95) mg/dL Carboxyhemoglobin (0.5-1.5) BUN (7-17) mg/dL Creatinine (0.6-1.2) mg/dL Glucose (65-100) mg/dL POC Glucose 268 H (70-105) mg/dL Calcium (8.4-10.2) mg/dL Ferritin 1434.0 H (10.0-200.0) ng/mL Lactate Dehydrogenase (91-180) units/L C-Reactive Protein (0.00-1.30) mg/dL Albumin (3.9-5) g/dL Arterial Blood Glucose (65-95) mg/dL 09/11/20 09/12/20 09/12/20 Range/Units Unknown 04:00 05:30 D-Dimer (0-234) ng/mlDDU POC ABG pO2 190.7 H (83-108) mmHg ABG Hemoglobin 17.7 H (12.0-17.5) ABG Oxyhemoglobin 98.9 H (94-98) ABG Glucose 322 H (65-95) mg/dL Carboxyhemoglobin 0.2 L (0.5-1.5) BUN 58 H (7-17) mg/dL Creatinine 1.8 H (0.6-1.2) mg/dL Glucose 279 H (65-100) mg/dL POC Glucose 313 H (70-105) mg/dL Calcium 7.9 L (8.4-10.2) mg/dL Ferritin (10.0-200.0) ng/mL Lactate Dehydrogenase (91-180) units/L C-Reactive Protein (0.00-1.30) mg/dL Albumin (3.9-5) g/dL Arterial Blood Glucose 322 H (65-95) mg/dL 09/12/20 09/12/20 Range/Units 08:43 11:58 D-Dimer (0-234) ng/mlDDU POC ABG pO2 (83-108) mmHg ABG Hemoglobin (12.0-17.5) ABG Oxyhemoglobin (94-98) ABG Glucose (65-95) mg/dL Carboxyhemoglobin (0.5-1.5) BUN 51 H (7-17) mg/dL Creatinine 1.4 H (0.6-1.2) mg/dL Glucose 317 H (65-100) mg/dL POC Glucose 329 H (70-105) mg/dL Calcium (8.4-10.2) mg/dL Ferritin (10.0-200.0) ng/mL Lactate Dehydrogenase (91-180) units/L C-Reactive Protein (0.00-1.30) mg/dL Albumin 3.0 L (3.9-5) g/dL Arterial Blood Glucose (65-95) mg/dL
[2020-09-12] MEDS ORDERED: TOCILIZUMAB 800 MG in SODIUM CHLORIDE 0.9% 100 ML IV ONE (13:30)
[2020-09-12] MEDS ORDERED: REMDESIVIR 200 MG in SODIUM CHLORIDE 0.9% 250ML 250 ML IV ONE (14:00)
[2020-09-12 14:12] LABS: Bacteria,Urine 1+ /HPF (Negative); Bilirubin,Urine NEG (Negative); Blood,Urine LG (Negative); Color,Urine Yellow (Yellow); Mucus,Urine FEW /HPF; Urobilinogen,Urine < 2.0 mg/dL (<2.0)
--- NOTE | 2020-09-12 14:37 | Progress Note ---
Assessment and Plan Acute hypoxemic respiratory failure Acute respiratory distress syndrome COVID-19 infection Bilateral pneumonia Diabetes Hypertension Obesity Leukopenia Elevated serum inflammatory markers to include D-dimer, ferritin and LDH - stop Propofol re: bradycardia - begin Versed if RASS goal not met - wean vasopressors for target MAP > 65 mmHg - send urine lytes - get AM lactic acid - advance ETT 1-2 cm - trend CVP's - 1 liter IVNS over 10 hrs re: Azotemia - follow lower extremity dopplers re: DVT - continue care as below otherwise; - continue Daily SAT and SBT assessment as tolerated - continue to wean supplemental oxygen for target O2 sat's > 90% acutely - VAP bundle addressed - continue lung protective strategies - continue bronchodilators with pulmonary hygiene per RT - wean per pulmonary driven protocols otherwise - avoid nephrotoxins, renally dose all medications - continue accuchecks with glycemic control per SSI (While critically ill target blood glucose of 140-180 mg/dL; avoid hypoglycemia) - sedation prn for target RASS 0 to -1 - continue to avoid benzodiazepine's, reduce the possibility of delirium - complete AB's per ID rec's - prn analgesia per CPOT score - Maintenance of sleep-wake cycle, avoid delirium - continue enteral nutritional support at goal rate as tolerated - G.I. & VTE prophylaxis - PT/OT/ROM exercises - continue mobility protocols for pressure ulcer prophylaxis - Monitor hemodynamics closely - continue other care per attending / other consultants - discharge planning ongoing concurrently COVID SPECIFIC INTERVENTIONS - Remdesivir as per ID/Pulmonary developed protocols (ordered) - to receive Actemra - continue systemic steroids for severe COVID-19 infection empirically - follow repeat COVID tests results - zinc and vitamin C supplementation - Monitor inflammatory markers per facility protocol - ferritin, Ddimer, CRP - therapeutic anticoagulation per system Protocol based on d-dimer and clinical considerations - Continue contact and airborne isolation .... Re-evaluate in am & prn CONDITION: CRITICAL PROGNOSIS: GUARDED CODE STATUS: FULL CODE The high probability of a clinically significant, sudden or life-threatening deterioration of the [respiratory, cardiovascular & neurologic] system(s) required my full and direct attention, intervention and personal management. The aggregate critical care time was [34] minutes without overlap. Time includes spent on; [x] Data Review and interpretation [x] Patient assessment and monitoring of vital signs [x] Documentation [x] Medication orders and management Subjective Date of service: 09/12/20 Principal diagnosis: Ac hypoxemic resp failure; ARDS; COVID-19 infxn; PNA; DM II; Obesity Interval history: Patient is seen today for: Ac hypoxemic resp failure; ARDS; COVID-19 infxn; PNA; DM II; Obesity Seen and examined at bedside; 24hour events reviewed; nursing and respiratory care staff consulted; no adverse overnight events reported to me; resting in bed; remains on MVS; sugars running high; episode of symptomatic bradycardia overnight and received atropine; not on lee; blocking drugs but on Propofol drip Objective Vital Signs - 12hr 09/12/20 09/12/20 09/12/20 02:41 02:51 03:01 Temperature Pulse Rate 53 L 54 L 53 L Respiratory 25 H 25 H 25 H Rate Blood Pressure 166/67 170/67 172/69 O2 Sat by Pulse 99 99 99 Oximetry 09/12/20 09/12/20 09/12/20 03:11 03:21 03:31 Temperature Pulse Rate 53 L 53 L 53 L Respiratory 25 H 25 H 25 H Rate Blood Pressure 167/69 167/71 169/72 O2 Sat by Pulse 99 99 99 Oximetry 09/12/20 09/12/20 09/12/20 03:41 03:51 04:00 Temperature 98.7 F Pulse Rate 54 L 52 L 49 L Respiratory 25 H 25 H 25 H Rate Blood Pressure 170/71 170/71 O2 Sat by Pulse 99 99 99 Oximetry 09/12/20 09/12/20 09/12/20 04:01 04:11 04:21 Temperature Pulse Rate 51 L 50 L 46 L Respiratory 25 H 25 H 25 H Rate Blood Pressure 163/65 164/65 159/64 O2 Sat by Pulse 99 99 99 Oximetry 09/12/20 09/12/20 09/12/20 04:31 04:41 05:20 Temperature Pulse Rate 97 H 93 H 61 Respiratory 25 H 25 H Rate Blood Pressure 229/106 211/91 189/84 O2 Sat by Pulse 100 98 97 Oximetry 09/12/20 09/12/20 09/12/20 08:00 08:56 09:06 Temperature 98 F Pulse Rate Respiratory 25 H Rate Blood Pressure O2 Sat by Pulse 99 90 Oximetry 09/12/20 09/12/20 11:04 12:00 Temperature 98.6 F Pulse Rate 47 L Respiratory Rate Blood Pressure 179/71 O2 Sat by Pulse 99 Oximetry Constitutional: no acute distress, other (elderly obese female with mildly increased respiratory effort at rest on MVS) Eyes: non-icteric ENT: oropharynx moist, other (ETT 24 cm STEVEN) Neck: supple, other (large circumference) Effort: mildly labored Ascultation: Bilateral: diminished breath sounds, rhonchi Percussion: Bilateral: not dull Cardiovascular: regular rate and rhythm Gastrointestinal: normoactive bowel sounds, soft, non-tender, non-distended (protuberant) Integumentary: normal Extremities: no cyanosis, no edema, pulses normal, no ischemia or petechiae Neurologic: non-focal exam (grossly), pupils equal and round, motor strength normal and, other (sedated) Psychiatric: other (unable to assess) CBC and BMP: 09/09/20 08:28 09/12/20 08:43 ABG, PT/INR, D-dimer: ABG ABG pH 7.332 (7.320-7.450) 09/12/20 04:00 POC ABG pCO2 45.0 mmHg (32.0-48.0) 09/12/20 04:00 POC ABG pO2 190.7 mmHg (83-108) H 09/12/20 04:00 POC ABG HCO3 23.3 09/12/20 04:00 ABG O2 Saturation 99.3 (0-100) 09/12/20 04:00 PT/INR, D-dimer PT 14.2 Sec. (12.2-14.9) 09/08/20 17:37 INR 1.04 (0.87-1.13) 09/08/20 17:37 D-Dimer 1324.85 ng/mlDDU (0-234) H 09/11/20 20:30 Abnormal lab findings: Abnormal Labs 09/08/20 09/08/20 09/08/20 17:37 17:37 17:37 WBC 4.3 L Hgb Hct Plt Count 106 L Lymph % (Auto) [place] % (Auto) 7.5 H Lymph # (Auto) 0.6 L Seg Neutrophils % 77.4 H D-Dimer 741.67 H POC ABG pCO2 POC ABG pO2 ABG Hemoglobin ABG Oxyhemoglobin ABG Sodium ABG Glucose Carboxyhemoglobin Sodium 129 L Chloride 91.9 L BUN 32 H Creatinine 1.5 H Glucose 200 H POC Glucose Calcium 8.1 L Ferritin AST 49 H Lactate Dehydrogenase C-Reactive Protein Total Protein Albumin 2.7 L Arterial Blood Glucose Arterial Blood Ionized Calcium Ur Specific [place] Coronavirus (PCR) 09/08/20 09/08/20 09/08/20 17:37 17:37 22:24 WBC Hgb Hct Plt Count Lymph % (Auto) [place] % (Auto) Lymph # (Auto) Seg Neutrophils % D-Dimer POC ABG pCO2 POC ABG pO2 ABG Hemoglobin ABG Oxyhemoglobin ABG Sodium ABG Glucose Carboxyhemoglobin Sodium Chloride BUN Creatinine Glucose 201 H POC Glucose Calcium Ferritin 731.2 H AST Lactate Dehydrogenase 396 H C-Reactive Protein 7.00 H Total Protein Albumin Arterial Blood Glucose Arterial Blood Ionized Calcium Ur Specific [place] 1.035 H Coronavirus (PCR) 09/08/20 09/09/20 09/09/20 23:35 07:30 08:28 WBC 3.4 L Hgb 15.5 H Hct 47.1 H Plt Count 95 L Lymph % (Auto) 9.5 L [place] % (Auto) Lymph # (Auto) 0.3 L Seg Neutrophils % 85.2 H D-Dimer POC ABG pCO2 POC ABG pO2 ABG Hemoglobin ABG Oxyhemoglobin ABG Sodium ABG Glucose Carboxyhemoglobin Sodium Chloride BUN Creatinine Glucose POC Glucose 188 H 281 H Calcium Ferritin AST Lactate Dehydrogenase C-Reactive Protein Total Protein Albumin Arterial Blood Glucose Arterial Blood Ionized Calcium Ur Specific [place] Coronavirus (PCR) 09/09/20 09/09/20 09/09/20 08:28 09:00 11:48 WBC Hgb Hct Plt Count Lymph % (Auto) [place] % (Auto) Lymph # (Auto) Seg Neutrophils % D-Dimer POC ABG pCO2 POC ABG pO2 ABG Hemoglobin ABG Oxyhemoglobin ABG Sodium ABG Glucose Carboxyhemoglobin Sodium 130 L Chloride 93.5 L BUN 31 H Creatinine 1.3 H Glucose 266 H POC Glucose 354 H Calcium Ferritin AST 48 H Lactate Dehydrogenase C-Reactive Protein Total Protein Albumin 2.8 L Arterial Blood Glucose Arterial Blood Ionized Calcium Ur Specific [place] Coronavirus (PCR) Positive A 09/09/20 09/09/20 09/10/20 17:21 21:15 08:00 WBC Hgb Hct Plt Count Lymph % (Auto) [place] % (Auto) Lymph # (Auto) Seg Neutrophils % D-Dimer POC ABG pCO2 POC ABG pO2 ABG Hemoglobin ABG Oxyhemoglobin ABG Sodium ABG Glucose Carboxyhemoglobin Sodium Chloride BUN Creatinine Glucose POC Glucose 332 H 226 H 240 H Calcium Ferritin AST Lactate Dehydrogenase C-Reactive Protein Total Protein Albumin Arterial Blood Glucose Arterial Blood Ionized Calcium Ur Specific [place] Coronavirus (PCR) 09/10/20 09/10/20 09/10/20 12:12 15:14 16:43 WBC Hgb Hct Plt Count Lymph % (Auto) [place] % (Auto) Lymph # (Auto) Seg Neutrophils % D-Dimer POC ABG pCO2 48.5 H POC ABG pO2 51.9 L ABG Hemoglobin ABG Oxyhemoglobin 85.1 L ABG Sodium 135.6 L ABG Glucose 310 H Carboxyhemoglobin Sodium 132 L Chloride 93.2 L BUN 43 H Creatinine 1.6 H Glucose 277 H POC Glucose 267 H Calcium Ferritin AST 49 H Lactate Dehydrogenase C-Reactive Protein Total Protein 8.3 H Albumin 3.0 L Arterial Blood Glucose 310 H Arterial Blood Ionized Calcium Ur Specific [place] Coronavirus (PCR) 09/10/20 09/10/20 09/11/20 21:34 23:33 05:56 WBC Hgb Hct Plt Count Lymph % (Auto) [place] % (Auto) Lymph # (Auto) Seg Neutrophils % D-Dimer POC ABG pCO2 POC ABG pO2 ABG Hemoglobin ABG Oxyhemoglobin ABG Sodium 135.9 L ABG Glucose 341 H Carboxyhemoglobin Sodium 133 L Chloride 94.2 L BUN 54 H Creatinine 1.6 H Glucose 318 H POC Glucose 306 H Calcium Ferritin AST 46 H Lactate Dehydrogenase C-Reactive Protein Total Protein Albumin 2.7 L Arterial Blood Glucose 341 H Arterial Blood Ionized Calcium 4.5 L Ur Specific [place] Coronavirus (PCR) 09/11/20 09/11/20 09/11/20 05:56 07:22 09:00 WBC Hgb Hct Plt Count Lymph % (Auto) [place] % (Auto) Lymph # (Auto) Seg Neutrophils % D-Dimer POC ABG pCO2 POC ABG pO2 80.1 L ABG Hemoglobin ABG Oxyhemoglobin ABG Sodium 134.5 L ABG Glucose 334 H Carboxyhemoglobin Sodium Chloride BUN Creatinine Glucose POC Glucose 305 H Calcium Ferritin AST Lactate Dehydrogenase 755 H C-Reactive Protein 5.50 H Total Protein Albumin Arterial Blood Glucose 334 H Arterial Blood Ionized Calcium Ur Specific [place] Coronavirus (PCR) 09/11/20 09/11/20 09/11/20 11:33 18:17 19:00 WBC Hgb Hct Plt Count Lymph % (Auto) [place] % (Auto) Lymph # (Auto) Seg Neutrophils % D-Dimer POC ABG pCO2 POC ABG pO2 146.4 H ABG Hemoglobin ABG Oxyhemoglobin 98.3 H ABG Sodium ABG Glucose 267 H Carboxyhemoglobin 0.4 L Sodium Chloride BUN Creatinine Glucose POC Glucose 304 H 296 H Calcium Ferritin AST Lactate Dehydrogenase C-Reactive Protein Total Protein Albumin Arterial Blood Glucose 267 H Arterial Blood Ionized Calcium Ur Specific [place] Coronavirus (PCR) 09/11/20 09/11/20 09/11/20 20:30 22:23 Unknown WBC Hgb Hct Plt Count Lymph % (Auto) [place] % (Auto) Lymph # (Auto) Seg Neutrophils % D-Dimer 1324.85 H POC ABG pCO2 POC ABG pO2 ABG Hemoglobin ABG Oxyhemoglobin ABG Sodium ABG Glucose Carboxyhemoglobin Sodium Chloride BUN Creatinine Glucose POC Glucose 268 H Calcium Ferritin 1434.0 H AST Lactate Dehydrogenase C-Reactive Protein Total Protein Albumin Arterial Blood Glucose Arterial Blood Ionized Calcium Ur Specific [place] Coronavirus (PCR) 09/11/20 09/12/20 09/12/20 Unknown 04:00 05:30 WBC Hgb Hct Plt Count Lymph % (Auto) [place] % (Auto) Lymph # (Auto) Seg Neutrophils % D-Dimer POC ABG pCO2 POC ABG pO2 190.7 H ABG Hemoglobin 17.7 H ABG Oxyhemoglobin 98.9 H ABG Sodium ABG Glucose 322 H Carboxyhemoglobin 0.2 L Sodium Chloride BUN 58 H Creatinine 1.8 H Glucose 279 H POC Glucose 313 H Calcium 7.9 L Ferritin AST Lactate Dehydrogenase C-Reactive Protein Total Protein Albumin Arterial Blood Glucose 322 H Arterial Blood Ionized Calcium Ur Specific [place] Coronavirus (PCR) 09/12/20 09/12/20 08:43 11:58 WBC Hgb Hct Plt Count Lymph % (Auto) [place] % (Auto) Lymph # (Auto) Seg Neutrophils % D-Dimer POC ABG pCO2 POC ABG pO2 ABG Hemoglobin ABG Oxyhemoglobin ABG Sodium ABG Glucose Carboxyhemoglobin Sodium Chloride BUN 51 H Creatinine 1.4 H Glucose 317 H POC Glucose 329 H Calcium Ferritin AST Lactate Dehydrogenase C-Reactive Protein Total Protein Albumin 3.0 L Arterial Blood Glucose Arterial Blood Ionized Calcium Ur Specific [place] Coronavirus (PCR) Chest x-ray: pending Allied health notes reviewed: nursing
--- NOTE | 2020-09-12 15:28 | Progress Note ---
Assessment and Plan Assessment and plan: 72-year-old female with HTN, DM, OSH, OA admitted for COVID-19 pneumonia, sepsis, acute hypoxic respiratory failure, NICOLASA Neuro: Acute metabolic encephalopathy -Avoid delirium -Sedated with fentanyl/propofol given dasha will wean propofol and use versed if needed with prop off pt is desaturating will add versed -Opening eyes and turning toward voice; PERRL; cough intact -RASS goal 0 to -1 -Daily SAT if oxygenation allows -family updated on plan of care -case management following Cardio: SB, H/O HTN, hypotension -Atropine at bedside -Hold home Coreg-- no rate lowering meds -EKG noted -QT 486 continue to trend given sedation meds and bradycardia -Blood pressure monitor per protocol -NE PRN for hypotension -Hydralazine IV as needed for SBP greater than 160 -A-line placed 09/11 -SB to 30's yesterday olegario requiring atropine x 1 dopamine then started currently at 4 levaquin changed -normal biV function on echo -RN asked to transduce CVP - pending at 1530 Respiratory: Acute hypoxic respiratory failure -Intubated 09/10 -Presented with pneumonia -CCM consulted, appreciate recommendations -VAP bundle -Wean mechanical ventilation as tolerated -Current vent settings: CMV, tidal volume 450, rate 825, PEEP of 18, 100% FiO2 -see RT notes -Serial ABGs -Serial CXRs -ETT advanced per RT today GI: Morbid obesity, TF, cholelithiasis, transaminitis -Nutrition consulted, appreciate recommendations -tolerating TF -PPI -BR: Colace -Trend LFTs and tbili : Acute kidney injury 2/2 VMN -Presented with a BUN/creatinine of 1.5/32 -Avoid nephrotoxic medication -Consider renal consult if needed -Strict intake and output -bladder scanning with intermittent straight caths -Daily weights -Trend BMP -urine electrolytes ordered -lactic acid ordered -NS at 100 ml/h for 1 L - trend Cr -AM labs ordered Heme: Leukopenia, thrombocytopenia, elevated D-dimer -Leukopenia likely secondary to COVID-19 infection -Thrombocytopenia likely secondary to sepsis -09/08 CTA chest shows no evidence of pulmonary embolism, multifocal airspace opacities with nodular densities and groundglass opacities in bilateral lungs, cholelithiasis, cholelithiasis -doppler BLE pending -no bleeding on exam ID: Sepsis, COVID-19 pneumonia -COVID-19 PCR +09/09 -Infectious disease consulted, appreciate recommendations -Remdesivir x5 days -IV tocilizumab -Dexamethasone 09/10 through 09/19 -Remdesivir 09/11 through 09/14 -Azithromycin 09/09 through 09/13, Rocephin 09/09 through 09/13 -Contact/droplet precaution -Trend COVID-19 inflammatory markers -given bradycardia levaquin dc'd and pt changed to azithromycin and rocpehin -on zinc and Vit C Endo: h/o DM; hyperglycemia; obese -Accu-Cheks every 6hours -Avoid hypoglycemia -SSI, long-acting insulin increased lantus today Disposition: ICU Full code Lines: A-line, IJ TLC The high probability of a clinically significant, sudden or life threatening det erioration of the [multi] system(s) required my full and direct attention, intervention and personal management. The aggregate critical care time was [90] minutes. This time is in addition to time spent performing reported procedures but includes the following: [x] Data Review and interpretation [x] Patient assessment and monitoring of vital signs [x] Documentation [x] Medication orders and management History Interval history: This 72-year-old female with HTN, DM, OHS, OA presents the emergency department on 09/08 with generalized weakness, loss of appetite, dry cough, loss of sense of smell, smell and taste, shortness of breath, malaise, decreased exercise tolerance over the past 3 days with progressive worsening symptoms. Patient's daughter provided additional history and stated patient's blood glucose level was being checked and the patient "threw back her head and passed out". EMS was notified and upon arrival patient was found to be in distress transported to [facility]. Patient was evaluated emergency department and had a pulse ox on room air of 82% consistent with acute hypoxic respiratory failure, CXR showed bilateral pneumonia, NICOLASA with ATN SSO to COVID-19 infection. Patient was admitted to the medical floor initiated COVID-19 protocol as well as pneumonia protocol. 09/10: Patient was intubated by ED physician and transferred to the ICU. 09/11: Infectious disease was consulted today, patient was placed on vasopressors due to hypotension despite receiving 1 L IV fluid, Lantus started, bilateral lower extremity Doppler ultrasound ordered, A-line and CVL placed. Late in the evening patient was exhibiting sinus bradycardia, EKG ordered along with stat CMP which showed NICOLASA. Stat ABG ordered which showed elevated PaO2 at 146 otherwise unremarkable on 100% FiO2. 09/12 bradycardia overnight requiring atropine x 1 and dopamine drip Disposition Plan: tbd Total Time Spent with Patient (Minutes): 60 History Interval history: bradycardia overnight requiring atropine and dopamine drip Hospitalist Physical - Constitutional Vitals: Temp Pulse Resp BP Pulse Ox 98.6 F 52 L 25 H 160/70 96 09/12/20 12:00 09/12/20 15:17 09/12/20 08:00 09/12/20 15:17 09/12/20 15:17 General appearance: Present: severe distress, well-nourished - EENT Eyes: Present: PERRL ENT: clear oral mucosa - Neck Neck: Present: supple - Respiratory Respiratory effort: normal - Cardiovascular Rhythm: regular Heart Sounds: Present: S1 & S2 - Extremities Extremities: no ischemia Peripheral Pulses: within normal limits - Abdominal General gastrointestinal: soft - Integumentary Integumentary: Present: clear, warm, dry - Psychiatric Psychiatric: other - Neurologic Neurologic: other - Allied Health Allied health notes reviewed: nursing, social work, case management HEART Score - HEART Score Troponin: Troponin T < 0.010 ng/mL (0.00-0.029) 09/09/20 00:39 Results - Labs CBC & Chem 7: 09/09/20 08:28 09/12/20 08:43 Labs: Laboratory Last Values WBC 3.4 K/mm3 (4.5-11.0) L 09/09/20 08:28 RBC 5.01 M/mm3 (3.65-5.03) 09/09/20 08:28 Hgb 15.5 gm/dl (10.1-14.3) H 09/09/20 08:28 Hct 47.1 % (30.3-42.9) H 09/09/20 08:28 MCV 94 fl (79-97) 09/09/20 08:28 MCH 31 pg (28-32) 09/09/20 08:28 MCHC 33 % (30-34) 09/09/20 08:28 RDW 14.2 % (13.2-15.2) 09/09/20 08:28 Plt Count 95 K/mm3 (140-440) L 09/09/20 08:28 Lymph % (Auto) 9.5 % (13.4-35.0) L 09/09/20 08:28 [place] % (Auto) 4.7 % (0.0-7.3) 09/09/20 08:28 Eos % (Auto) 0.0 % (0.0-4.3) 09/09/20 08:28 Baso % (Auto) 0.6 % (0.0-1.8) 09/09/20 08:28 Lymph # (Auto) 0.3 K/mm3 (1.2-5.4) L 09/09/20 08:28 [place] # (Auto) 0.2 K/mm3 (0.0-0.8) 09/09/20 08:28 Eos # (Auto) 0.0 K/mm3 (0.0-0.4) 09/09/20 08:28 Baso # (Auto) 0.0 K/mm3 (0.0-0.1) 09/09/20 08:28 Seg Neutrophils % 85.2 % (40.0-70.0) H 09/09/20 08:28 Seg Neutrophils # 2.9 K/mm3 (1.8-7.7) 09/09/20 08:28 PT 14.2 Sec. (12.2-14.9) 09/08/20 17:37 INR 1.04 (0.87-1.13) 09/08/20 17:37 APTT 29.2 Sec. (24.2-36.6) 09/08/20 17:37 D-Dimer 1324.85 ng/mlDDU (0-234) H 09/11/20 20:30 ABG pH 7.332 (7.320-7.450) 09/12/20 04:00 POC ABG pCO2 45.0 mmHg (32.0-48.0) 09/12/20 04:00 POC ABG pO2 190.7 mmHg (83-108) H 09/12/20 04:00 POC ABG HCO3 23.3 09/12/20 04:00 ABG O2 Saturation 99.3 (0-100) 09/12/20 04:00 POC ABG Base Excess -2.8 09/12/20 04:00 ABG Hemoglobin 17.7 (12.0-17.5) H 09/12/20 04:00 ABG Oxyhemoglobin 98.9 (94-98) H 09/12/20 04:00 ABG Methemoglobin 0.2 (0.0-1.5) 09/12/20 04:00 ABG Sodium 139.4 mmol/L (136.0-145.0) 09/12/20 04:00 ABG Potassium 4.2 mmol/L (3.40-4.50) 09/12/20 04:00 ABG Chloride 104.0 mmol/L (98-107) 09/12/20 04:00 ABG Glucose 322 mg/dL (65-95) H 09/12/20 04:00 Carboxyhemoglobin 0.2 (0.5-1.5) L 09/12/20 04:00 FiO2 % 100.0 09/12/20 04:00 Sodium 141 mmol/L (137-145) 09/12/20 08:43 Potassium 4.0 mmol/L (3.6-5.0) 09/12/20 08:43 Chloride 102.5 mmol/L (98-107) 09/12/20 08:43 Carbon Dioxide 25 mmol/L (22-30) 09/12/20 08:43 Anion Gap 18 mmol/L 09/12/20 08:43 BUN 51 mg/dL (7-17) H 09/12/20 08:43 Creatinine 1.4 mg/dL (0.6-1.2) H 09/12/20 08:43 Estimated GFR 45 ml/min 09/12/20 08:43 BUN/Creatinine Ratio 36 % 09/12/20 08:43 Glucose 317 mg/dL (65-100) H 09/12/20 08:43 POC Glucose 329 mg/dL (70-105) H 09/12/20 11:58 Lactic Acid 1.80 mmol/L (0.7-2.0) 09/08/20 20:09 Calcium 8.9 mg/dL (8.4-10.2) 09/12/20 08:43 Magnesium 1.90 mg/dL (1.7-2.3) 09/08/20 17:37 Ferritin 1434.0 ng/mL (10.0-200.0) H 09/11/20 Unknown Total Bilirubin 0.40 mg/dL (0.1-1.2) 09/12/20 08:43 AST 39 units/L (5-40) 09/12/20 08:43 ALT 25 units/L (7-56) 09/12/20 08:43 Alkaline Phosphatase 75 units/L (35-129) 09/12/20 08:43 Lactate Dehydrogenase 755 units/L (91-180) H 09/11/20 05:56 Troponin T < 0.010 ng/mL (0.00-0.029) 09/09/20 00:39 C-Reactive Protein 5.50 mg/dL (0.00-1.30) H 09/11/20 05:56 NT-Pro-B Natriuret Pep 503.6 pg/mL (0-900) 09/08/20 17:37 Total Protein 7.3 g/dL (6.3-8.2) 09/12/20 08:43 Albumin 3.0 g/dL (3.9-5) L 09/12/20 08:43 Albumin/Globulin Ratio 0.7 % 09/12/20 08:43 Lipase 47 units/L (13-60) 09/08/20 17:37 Procalcitonin 0.50 ng/mL (<0.15) 09/08/20 17:37 Arterial Blood Glucose 322 mg/dL (65-95) H 09/12/20 04:00 Arterial Blood Ionized Calcium 4.6 mg/dL (4.6-5.3) 09/11/20 19:00 Urine Color Yellow (Yellow) 09/12/20 13:30 Urine Turbidity Clear (Clear) 09/12/20 13:30 Urine pH 5.0 (5.0-7.0) 09/12/20 13:30 Ur Specific [place] 1.011 (1.003-1.030) 09/12/20 13:30 Urine Protein 100 mg/dl mg/dL (Negative) 09/12/20 13:30 Urine Glucose (UA) 50 mg/dL (Negative) 09/12/20 13:30 Urine Ketones Neg mg/dL (Negative) 09/12/20 13:30 Urine Blood Lg (Negative) 09/12/20 13:30 Urine Nitrite Neg (Negative) 09/12/20 13:30 Urine Bilirubin Neg (Negative) 09/12/20 13:30 Urine Urobilinogen < 2.0 mg/dL (<2.0) 09/12/20 13:30 Ur Leukocyte Esterase Neg (Negative) 09/12/20 13:30 Urine WBC (Auto) 2.0 /HPF (0.0-6.0) 09/12/20 13:30 Urine RBC (Auto) 47.0 /HPF (0.0-6.0) 09/12/20 13:30 U Epithel Cells (Auto) 2.0 /HPF (0-13.0) 09/08/20 22:24 Urine Bacteria (Auto) 1+ /HPF (Negative) 09/12/20 13:30 Urine Mucus Few /HPF 09/12/20 13:30 Urine Opiates Screen Presumptive negative 09/08/20 22:24 Urine Methadone Screen Presumptive negative 09/08/20 22:24 Ur Barbiturates Screen Presumptive negative 09/08/20 22:24 Ur Phencyclidine Scrn Presumptive negative 09/08/20 22:24 Ur Amphetamines Screen Presumptive negative 09/08/20 22:24 U Benzodiazepines Scrn Presumptive negative 09/08/20 22:24 Urine Cocaine Screen Presumptive negative 09/08/20 22:24 U Marijuana (THC) Screen Presumptive negative 09/08/20 22:24 Drugs of Abuse Note Disclamer 09/08/20 22:24 Coronavirus (PCR) Positive (Negative) A 09/09/20 09:00 Microbiology: Microbiology 09/08/20 17:32 Peripheral/Venous Blood Culture - Preliminary NO GROWTH AFTER 72 HOURS 09/08/20 17:32 Peripheral/Venous Blood Culture - Preliminary NO GROWTH AFTER 72 HOURS Begum/IV: Voiding Method External Female Catheter Active Medications - Current Medications Current Medications: Generic Name Dose Route Start Last Admin Trade Name Freq PRN Reason Stop Dose Admin Acetaminophen 650 mg 09/08/20 20:23 Acetaminophen 325 Mg Tab PO Q4H PRN Pain MILD(1-3)/Fever >100.5/CORTEZ Albuterol 2.5 mg 09/08/20 20:23 Albuterol 2.5 Mg/3 Ml Nebu IH Q4HRT PRN Shortness Of Breath Lipase/Protease/Amylase 1 each 09/11/20 11:45 Lipase 10,500/Protease 25,000/Amylase 43,750 (Units) Dr Issa FEEDTUBE PRN PRN For Clogged Feeding Tube Ascorbic Acid 500 mg 09/08/20 22:00 09/12/20 09:10 Ascorbic Acid 500 Mg Tab PO 500 mg BID ISIAH Administration Cholecalciferol 1,000 unit 09/09/20 10:00 09/12/20 09:10 Cholecalciferol (Vit D3) 1000 Unit (25 Mcg) Tab PO 1,000 unit QDAY ISIAH Administration Dexamethasone 8 mg 09/10/20 17:00 09/12/20 09:00 Dexamethasone 4 Mg/Ml Vial IV 09/19/20 10:01 8 mg DAILY ISIAH Administration Famotidine 20 mg 09/11/20 10:00 09/12/20 09:00 Famotidine 20 Mg/2 Ml Inj IV 20 mg BID ISIAH Administration Fentanyl 50 mcg 09/10/20 22:12 09/11/20 09:21 Fentanyl 100 Mcg/2 Ml Inj IV 50 mcg Q10MIN PRN Administration ANALGESIA Guaifenesin 10 ml 09/09/20 16:01 09/10/20 05:14 Guaifenesin Dm 200/20 Mg Oral Liqd 10 Ml PO 10 ml Q4H PRN Administration Cough Heparin Sodium (Porcine) 5,000 unit 09/08/20 22:00 09/12/20 09:01 Heparin 5,000 Unit/1 Ml Vial SUB-Q 5,000 unit Q12HR ISIAH Administration Hydralazine HCl 10 mg 09/11/20 21:33 Hydralazine 20 Mg/1 Ml Inj IV Q4H PRN Hypertension Hydromorphone HCl 0.5 mg 09/08/20 20:23 Hydromorphone 1 Mg/1 Ml Inj IV Q12H PRN Pain , Severe (7-10) Ceftriaxone Sodium 2 gm in 100 mls @ 200 mls/hr 09/09/20 10:00 09/12/20 09:00 Rocephin/Ns 2 Gm/100 Ml IV 09/13/20 10:29 200 mls/hr Q24HR ISIAH Administration Protocol Azithromycin 500 mg in 250 mls @ 250 mls/hr 09/09/20 10:00 09/12/20 10:15 Zithromax/Ns IV 09/13/20 10:59 250 mls/hr Q24HR ISIAH Administration Protocol REMDESIVIR 100 mg/ Sodium 250 mls @ 500 mls/hr 09/13/20 21:00 Chloride IV 09/16/20 21:29 Q24HR@2100 ISIAH Propofol 1,000 mg in 100 mls @ 4.47 mls/hr 09/10/20 23:00 09/12/20 12:32 Diprivan 10 Mg/Ml IV 30 mcg/kg/min TITR ISIAH 26.82 mls/hr Administration Protocol 5 MCG/KG/MIN Fentanyl Citrate 2,000 mcg in 100 mls @ 7.45 mls/hr 09/10/20 23:00 09/12/20 12:31 Fentanyl Drip Premix IV 4 mcg/kg/hr TITR ISIAH 29.8 mls/hr Administration Protocol 1 MCG/KG/HR Norepinephrine 4 mg in 250 mls @ 7.5 mls/hr 09/11/20 17:00 09/12/20 09:35 Levophed Drip 4 Mg/Ns 250 Ml IV 4 mcg/min TITR ISIAH 15 mls/hr Titration Protocol 2 MCG/MIN Sodium Chloride 1,000 mls @ 10 mls/hr 09/11/20 20:45 Nacl 0.9% 1000 Ml IV DIRECT ISIAH Vasopressin 20 unit/ Sodium 101 mls @ 9.09 mls/hr 09/11/20 22:00 Chloride IV TITR ISIAH Protocol 0.03 UNITS/MIN Phenylephrine HCl 100 mg/ 100 mls @ 3 mls/hr 09/11/20 22:15 Sodium Chloride IV TITR ISIAH Protocol 50 MCG/MIN Dopamine HCl/Dextrose 800 mg in 250 mls @ 5.588 mls/hr 09/11/20 23:00 09/12/20 10:20 Intropin Drip 800 Mg/D5w 250 Ml IV 2 mcg/kg/min TITR SIIAH 5.588 mls/hr Titration Protocol 2 MCG/KG/MIN Insulin Glargine 15 units 09/12/20 10:00 09/12/20 09:32 Insulin Glargine 100 Units/Ml SUB-Q 15 units DAILY [facility] Administration Insulin Human Lispro 0 unit 09/11/20 12:00 09/12/20 12:38 Insulin Lispro 100 Unit/Ml SUB-Q 8 unit Q6HR ISIAH Administration Protocol Ondansetron HCl 4 mg 09/08/20 20:23 Ondansetron 4 Mg/2 Ml Inj IV Q8H PRN Nausea And Vomiting Oxycodone/Acetaminophen 1 tab 09/08/20 20:23 09/10/20 08:18 Oxycodone /Acetaminophen 5-325mg Tab PO 1 tab Q12H PRN Administration Pain, Moderate (4-6) Simple Syrup 15 ml 09/11/20 11:45 Simple Syrup 15 Ml FEEDTUBE PRN PRN Hypoglycemia Simple Syrup 30 ml 09/11/20 11:45 Simple Syrup 15 Ml FEEDTUBE PRN PRN Hypoglycemia Sodium Bicarbonate 325 mg 09/11/20 11:45 Sodium Bicarbonate 325 Mg Tab FEEDTUBE PRN PRN For Clogged Feeding Tube Sodium Chloride 10 ml 09/08/20 22:00 09/12/20 09:00 Sodium Chloride 0.9% 10 Ml Flush Syringe IV 10 ml BID ISIAH Administration Sodium Chloride 10 ml 09/08/20 20:23 Sodium Chloride 0.9% 10 Ml Flush Syringe IV PRN PRN LINE FLUSH Sodium Chloride 50 ml 09/12/20 14:00 Sodium Chloride 0.9% 50 Ml Ivpb IV 09/16/20 21:01 Q24HR@2100 ISIAH Zinc Sulfate 220 mg 09/08/20 22:00 09/12/20 09:10 Zinc Sulfate 220 Mg Cap PO 220 mg BID ISIAH Administration Nutrition/Malnutrition Assess - Dietary Evaluation Nutrition/Malnutrition Findings: Nutrition Notes Start: 09/11/20 11:37 Freq: Status: Active Protocol: Document 09/11/20 11:37 (Rec: 09/11/20 11:45 [id number]) Nutrition Notes Need for Assessment generated from: MD Order Initial or Follow up Assessment Current Diagnosis Acute Kidney Injury, Respiratory Failure Other Pertinent Diagnosis pneu, COVID Current Diet No diet Labs/Tests Na 133 BUN 54 Cr 1.6 BG 318 Pertinent Medications Propofol at 17.88 ml/hr ( 472kcal) Decadron Lantus Height 5 ft 8 in Weight 149 kg [place] Body Weight (kg) 63.63 BMI 49.9 Weight Status Morbidly Obese Subjective/Other Information MD order for TF. Pt on vent. Burn Absent Trauma Absent Current % PO Negligible Minimum of two criteria No physical signs of malnutrition #1 Nutrition Diagnosis Inadequate oral intake Etiology ARF As Evidenced by Signs and Symptoms pt on vent and unable to consume PO Is patient on ventilator? Yes Is Patient Ambulatory and/or Out of Bed No REE-(Sanders-St. Jeor-confined to bed) 2457.420 Kcal/Kg value to use for calculation 13 Approximate Energy Requirements Using 1937 kcal/Kg Calculation Used for Recommendations Kcal/kg Additional Notes Protein: up to 2.5g/kg IBW (up to 159g) Fluid: 1 ml/kcal or per MD Nutrition Intervention Change Diet Order: Start TF Nutrition Support: Glucerna 1.2 at 65 ml/hr Flush 100 ml q4h or per MD Kcal 1,872 Protein (gm) 94 Carbohydrates (gm) 179 Fat (gm) 94 Fluid (mL) 1,256 Goal #1 Meet at least 75% of protein and energy needs via TF Anticipated Discharge Needs: Unable to determine at this time Follow-Up By: 09/13/20 Additional Comments FU for TF start and tolerance - Attestation Statement I have reviewed and agreed w/ Malnutrition eval & tx plan: Yes
[2020-09-12 15:30] LABS: Creatinine,Urine 43.2 mg/dL (0.1-20.0)
[2020-09-12] MEDS ORDERED: MIDAZOLAM 2 MG/2 ML INJ IV PRN (15:52)
[2020-09-12] MEDS ORDERED: MIDAZOLAM 100 MG in SODIUM CHLORIDE 0.9% 80 ML IV SCH (16:00)
[2020-09-12] MEDS ORDERED: MIDAZOLAM 100 MG in SODIUM CHLORIDE 0.9% 80 ML IV ONE (16:02)
[2020-09-12] MEDS ORDERED: MIDAZOLAM 2 MG/2 ML INJ IV ONE (16:30)
[2020-09-12] MEDS: SODIUM CHLORIDE 0.9% 50 ML IVPB IV SCH (16:35)
--- NOTE | 2020-09-12 17:27 | Vascular Lab Report ---
DUPLEX DOPPLER LOWER EXTREMITY VEINS, BILATERAL INDICATION / CLINICAL INFORMATION: SWELLING. TECHNIQUE: Duplex doppler imaging was performed through the veins of both lower extremities using abigail ous compression and other maneuvers. COMPARISON: None available. FINDINGS: RIGHT COMMON FEMORAL VEIN: Negative. RIGHT FEMORAL VEIN: Negative. RIGHT POPLITEAL VEIN: Negative. RIGHT CALF VEINS: Negative. LEFT COMMON FEMORAL VEIN: Negative. LEFT FEMORAL VEIN: Negative. LEFT POPLITEAL VEIN: Negative. LEFT CALF VEINS: Negative. ADDITIONAL FINDINGS: None. IMPRESSION: 1. No sonographic evidence for DVT in either lower extremity. Scribed by: Silvana Alvarez RDMS, RVT Scribed: 09/12/2020 4:13 PM I have reviewed the images, agree with this report, and edited this report as needed. Signer Name: Dean Dallas MD Signed: 09/12/2020 5:23 PM Workstation Name: [id number]
[2020-09-12 17:54] LABS: Hematocrit 43.5 % (30.3-42.9); Hemoglobin 14.5 gm/dl (10.1-14.3); Mean Corpuscular HGB Conc 33 % (30-34); Mean Corpuscular Volume 93 fl (79-97); Platelet Count 163 K/mm3 (140-440); Red Blood Count 4.65 M/mm3 (3.65-5.03); Red Cell Distribution Width 14.2 % (13.2-15.2)
[2020-09-12] MEDS: MIDAZOLAM 100 MG in SODIUM CHLORIDE 0.9% 80 ML IV SCH (17:56)
[2020-09-12 18:59] LABS: Platelet Estimate Consistent w Auto; RBC Morphology Normal; Total Cells Counted 100
[2020-09-12] MEDS: DOPamine/D5W 800 MG/250 ML 800 MG/250 ML BAG IV SCH (20:36)
[2020-09-13] MEDS: fentaNYL DRIP Premix 2,000 MCG/100 ML BAG IV SCH ×7 (00:01→22:10)
[2020-09-13] MEDS: INSULIN LISPRO 100 UNIT/ML SUB-Q SCH ×4 (00:03→17:32)
[2020-09-13 05:34] LABS: Hematocrit 41.4 % (30.3-42.9); Hemoglobin 13.8 gm/dl (10.1-14.3); Mean Corpuscular HGB Conc 33 % (30-34); Mean Corpuscular Volume 95 fl (79-97); Platelet Count 135 K/mm3 (140-440); Red Blood Count 4.34 M/mm3 (3.65-5.03); Red Cell Distribution Width 14.3 % (13.2-15.2)
[2020-09-13 05:57] LABS: Albumin 2.8 g/dL (3.9-5); Calcium 8.5 mg/dL (8.4-10.2)
[2020-09-13] MEDS: NORepinephrine/NS 4 MG-250 ML 4 MG/250 ML BAG IV SCH ×2 (08:10→23:32)
[2020-09-13] MEDS ORDERED: INSULIN GLARGINE 100 UNITS/ML SUB-Q ONE (10:00)
[2020-09-13] MEDS: AZITHROMYCIN/NS 500 MG/250 ML 500 MG/250 ML BAG IV SCH (10:10)
[2020-09-13] MEDS: cefTRIAXone/NS 2 GM/100 ML 2 GM/100 ML BAG IV SCH (10:10)
[2020-09-13] MEDS: INSULIN GLARGINE 100 UNITS/ML SUB-Q SCH (10:10)
[2020-09-13] MEDS: FAMOTIDINE 20 MG/2 ML INJ IV SCH ×2 (10:11→22:17)
[2020-09-13] MEDS: HEPARIN 5,000 UNIT/1 ML VIAL SUB-Q SCH ×2 (10:11→22:17)
[2020-09-13] MEDS: ZINC SULFATE 220 MG CAP PO SCH ×2 (10:11→22:19)
[2020-09-13] MEDS: ASCORBIC ACID 500 MG TAB PO SCH ×2 (10:11→22:17)
[2020-09-13] MEDS: CHOLECALCIFEROL (VIT D3) 1000 UNIT (25 mcg) TAB PO SCH (10:11)
[2020-09-13] MEDS: dexAMETHasone 4 MG/ML VIAL IV SCH (10:11)
--- NOTE | 2020-09-13 10:36 | Electrocardiograph Report ---
[facility] Test Date: 2020-09-13 Test Time: 07:57:36 Pat Name: NEREYDA CHAPA Department: Room: A260 1 Gender: F [employer]ician: DARIEN : 1945 Requested By: ZAC CARVER Order Number: [id number] Reading MD: Juan Gregory Measurements Intervals [place] Rate: 101 P: 16 DE: 164 QRS: 18 QRSD: 97 T: 65 QT: 351 QTc: 456 Interpretive Statements Sinus tachycardia Consider left ventricular hypertrophy Compared to ECG 09/11/2020 22:26:22 Sinus bradycardia no longer present Electronically Signed On 09-13-2020 10:36:24 EDT by Juan Gregory
--- NOTE | 2020-09-13 11:21 | Progress Note ---
Assessment and Plan Assessment and plan: 72-year-old female with HTN, DM, OSH, OA admitted for COVID-19 pneumonia, sepsis, acute hypoxic respiratory failure, NICOLASA Neuro: Acute metabolic encephalopathy -Avoid delirium -Sedated with versed, prop and fentanyl -RASS goal neg 4 -PERRL prior to proning -family updated on plan of care -case management following Cardio: SB, H/O HTN, hypotension due to covid pna/sepsis -Atropine at bedside -Hold home Coreg-- no rate lowering meds -SR-ST -trend QT -NE PRN for hypotension -Hydralazine IV as needed for SBP greater than 160 -A-line placed 09/11- rewired today -dopamine for bradycardia -normal biV function on echo -CVP- trend daily Respiratory: Acute hypoxic respiratory failure due to covid pna Acute hypoxemic respiratory failure Acute respiratory distress syndrome COVID-19 infection Bilateral pneumonia -Intubated 09/10 -Presented with pneumonia -CCM consulted, appreciate recommendations -VAP bundle -Wean mechanical ventilation as tolerated -Current vent settings: CMV, tidal volume 450, rate 825, PEEP of 18, 100% FiO2 -see RT notes -Serial ABGs -Serial CXRs -proned today at approx 1100 goal 12 hours GI: Morbid obesity, TF, cholelithiasis, transaminitis -Nutrition consulted, appreciate recommendations -tolerating TF -PPI -BR: Colace -BM last night -Trend LFTs and tbili : Acute kidney injury 2/2 VMN -Presented with a BUN/creatinine of 1.5/32 -Avoid nephrotoxic medication -Consider renal consult if needed -Strict intake and output -bladder scanning with intermittent straight caths -Daily weights -Trend BMP -AM labs ordered Heme: Leukopenia, thrombocytopenia, elevated D-dimer -Leukopenia likely secondary to COVID-19 infection -Thrombocytopenia likely secondary to sepsis -09/08 CTA chest shows no evidence of pulmonary embolism, multifocal airspace opacities with nodular densities and groundglass opacities in bilateral lungs, cholelithiasis, cholelithiasis -doppler BLE neg for DVT -no bleeding on exam ID: Sepsis, COVID-19 pneumonia Acute hypoxemic respiratory failure Acute respiratory distress syndrome COVID-19 infection Bilateral pneumonia Elevated serum inflammatory markers to include D-dimer, ferritin and LDH -COVID-19 PCR +09/09 -Infectious disease consulted, appreciate recommendations -Remdesivir x5 days -IV tocilizumab -Dexamethasone 09/10 through 09/19 -Remdesivir 09/11 through 09/14 -Azithromycin 09/09 through 09/13, Rocephin 09/09 through 09/13 -Contact/droplet precaution -Trend COVID-19 inflammatory markers -azithromycin and rocpehin completed -on zinc and Vit C Endo: h/o DM; hyperglycemia; morbid obese -Accu-Cheks every 6hours -Avoid hypoglycemia -SSI, long-acting insulin -lantus scheduled Disposition: ICU Full code Lines: A-line, IJ TLC The high probability of a clinically significant, sudden or life threatening deterioration of the [multi] system(s) required my full and direct attention, intervention and personal management. The aggregate critical care time was [90] minutes. This time is in addition to time spent performing reported procedures but includes the following: [x] Data Review and interpretation [x] Patient assessment and monitoring of vital signs [x] Documentation [x] Medication orders and management History Interval history: This 72-year-old female with HTN, DM, OHS, OA presents the emergency department on 09/08 with generalized weakness, loss of appetite, dry cough, loss of sense of smell, smell and taste, shortness of breath, malaise, decreased exercise tolerance over the past 3 days with progressive worsening symptoms. Patient's daughter provided additional history and stated patient's blood glucose level was being checked and the patient "threw back her head and passed out". EMS was notified and upon arrival patient was found to be in distress transported to [facility]. Patient was evaluated emergency department and had a pulse ox on room air of 82% consistent with acute hypoxic respiratory failure, CXR showed bilateral pneumonia, NICOLASA with ATN SSO to COVID-19 infection. Patient was admitted to the medical floor initiated COVID-19 protocol as well as pneumonia protocol. 09/10: Patient was intubated by ED physician and transferred to the ICU. 09/11: Infectious disease was consulted today, patient was placed on vasopressors due to hypotension despite receiving 1 L IV fluid, Lantus started, bilateral lower extremity Doppler ultrasound ordered, A-line and CVL placed. Late in the evening patient was exhibiting sinus bradycardia, EKG ordered along with stat CMP which showed NICOLASA. Stat ABG ordered which showed elevated PaO2 at 146 otherwise unremarkable on 100% FiO2. 09/12 bradycardia overnight requiring atropine x 1 and dopamine drip 09/13 tamia overnight Disposition Plan: tbd Total Time Spent with Patient (Minutes): 90 History Interval history: tamia overnight Hospitalist Physical - Constitutional Vitals: Temp Pulse Resp BP Pulse Ox 97.6 F 112 H 26 H 222/121 100 09/13/20 03:38 09/13/20 10:40 09/13/20 10:40 09/13/20 10:40 09/13/20 10:40 General appearance: Present: severe distress, well-nourished - EENT Eyes: Present: PERRL ENT: clear oral mucosa - Neck Neck: Present: supple - Respiratory Respiratory effort: normal - Cardiovascular Rhythm: regular Heart Sounds: Present: S1 & S2 - Extremities Extremities: no ischemia Peripheral Pulses: within normal limits - Abdominal General gastrointestinal: soft - Integumentary Integumentary: Present: clear, warm, erythema - Psychiatric Psychiatric: other - Neurologic Neurologic: other - Allied Health Allied health notes reviewed: nursing, social work, case management HEART Score - HEART Score Troponin: Troponin T < 0.010 ng/mL (0.00-0.029) 09/09/20 00:39 Results - Labs CBC & Chem 7: 09/13/20 Unknown 09/13/20 Unknown Labs: Laboratory Last Values WBC 9.6 K/mm3 (4.5-11.0) 09/13/20 Unknown RBC 4.34 M/mm3 (3.65-5.03) 09/13/20 Unknown Hgb 13.8 gm/dl (10.1-14.3) 09/13/20 Unknown Hct 41.4 % (30.3-42.9) 09/13/20 Unknown MCV 95 fl (79-97) 09/13/20 Unknown MCH 32 pg (28-32) 09/13/20 Unknown MCHC 33 % (30-34) 09/13/20 Unknown RDW 14.3 % (13.2-15.2) 09/13/20 Unknown Plt Count 135 K/mm3 (140-440) L 09/13/20 Unknown Lymph % (Auto) 9.5 % (13.4-35.0) L 09/09/20 08:28 [place]man % (Auto) 4.7 % (0.0-7.3) 09/09/20 08:28 Eos % (Auto) 0.0 % (0.0-4.3) 09/09/20 08:28 Baso % (Auto) 0.6 % (0.0-1.8) 09/09/20 08:28 Lymph # (Auto) 0.3 K/mm3 (1.2-5.4) L 09/09/20 08:28 [place] # (Auto) 0.2 K/mm3 (0.0-0.8) 09/09/20 08:28 Eos # (Auto) 0.0 K/mm3 (0.0-0.4) 09/09/20 08:28 Baso # (Auto) 0.0 K/mm3 (0.0-0.1) 09/09/20 08:28 Add Manual Diff Complete 09/12/20 17:17 Total Counted 100 09/12/20 17:17 Seg Neutrophils % Broadcast Meteorologist 09/12/20 17:17 Seg Neuts % (Manual) 96.0 % (40.0-70.0) H 09/12/20 17:17 Lymphocytes % (Manual) 1.0 % (13.4-35.0) L 09/12/20 17:17 Monocytes % (Manual) 3.0 % (0.0-7.3) 09/12/20 17:17 Nucleated RBC % Not Reportable 09/12/20 17:17 Seg Neutrophils # 2.9 K/mm3 (1.8-7.7) 09/09/20 08:28 Seg Neutrophils # Man 9.8 K/mm3 (1.8-7.7) H 09/12/20 17:17 Band Neutrophils # 0.0 K/mm3 09/12/20 17:17 Lymphocytes # (Manual) 0.1 K/mm3 (1.2-5.4) L 09/12/20 17:17 Abs React Lymphs (Man) 0.0 K/mm3 09/12/20 17:17 Monocytes # (Manual) 0.3 K/mm3 (0.0-0.8) 09/12/20 17:17 Eosinophils # (Manual) 0.0 K/mm3 (0.0-0.4) 09/12/20 17:17 Basophils # (Manual) 0.0 K/mm3 (0.0-0.1) 09/12/20 17:17 Metamyelocytes # 0.0 K/mm3 09/12/20 17:17 Myelocytes # 0.0 K/mm3 09/12/20 17:17 Promyelocytes # 0.0 K/mm3 09/12/20 17:17 Blast Cells # 0.0 K/mm3 09/12/20 17:17 WBC Morphology Not Reportable 09/12/20 17:17 Hypersegmented Neuts Not Reportable 09/12/20 17:17 Hyposegmented Neuts Not Reportable 09/12/20 17:17 Hypogranular Neuts Not Reportable 09/12/20 17:17 Smudge Cells Not Reportable 09/12/20 17:17 Toxic Granulation Not Reportable 09/12/20 17:17 Toxic Vacuolation Not Reportable 09/12/20 17:17 Dohle Bodies Not Reportable 09/12/20 17:17 Pelger-Huet Anomaly Not Reportable 09/12/20 17:17 Aktrin Rods Not Reportable 09/12/20 17:17 Platelet Estimate Consistent w auto 09/12/20 17:17 Clumped Platelets Not Reportable 09/12/20 17:17 Plt Clumps, EDTA Not Reportable 09/12/20 17:17 Large Platelets Not Reportable 09/12/20 17:17 Giant Platelets Not Reportable 09/12/20 17:17 Platelet Satelliting Not Reportable 09/12/20 17:17 Plt Morphology Comment Not Reportable 09/12/20 17:17 RBC Morphology Normal 09/12/20 17:17 Dimorphic RBCs Not Reportable 09/12/20 17:17 Polychromasia Not Reportable 09/12/20 17:17 Hypochromasia Not Reportable 09/12/20 17:17 Poikilocytosis Not Reportable 09/12/20 17:17 Anisocytosis Not Reportable 09/12/20 17:17 Microcytosis Not Reportable 09/12/20 17:17 Macrocytosis Not Reportable 09/12/20 17:17 Spherocytes Not Reportable 09/12/20 17:17 Pappenheimer Bodies Not Reportable 09/12/20 17:17 Sickle Cells Not Reportable 09/12/20 17:17 Target Cells Not Reportable 09/12/20 17:17 Tear Drop Cells Not Reportable 09/12/20 17:17 Ovalocytes Not Reportable 09/12/20 17:17 Helmet Cells Not Reportable 09/12/20 17:17 [place] Bodies Not Reportable 09/12/20 17:17 [place] Rings Not Reportable 09/12/20 17:17 [place] Cells Not Reportable 09/12/20 17:17 Bite Cells Not Reportable 09/12/20 17:17 Crenated Cell Not Reportable 09/12/20 17:17 Elliptocytes Not Reportable 09/12/20 17:17 Acanthocytes (Spur) Not Reportable 09/12/20 17:17 Rouleaux Not Reportable 09/12/20 17:17 Hemoglobin C Crystals Not Reportable 09/12/20 17:17 Schistocytes Not Reportable 09/12/20 17:17 Malaria parasites Not Reportable 09/12/20 17:17 [place] Bodies Not Reportable 09/12/20 17:17 Hem Pathologist Commnt No 09/12/20 17:17 PT 14.2 Sec. (12.2-14.9) 09/08/20 17:37 INR 1.04 (0.87-1.13) 09/08/20 17:37 APTT 29.2 Sec. (24.2-36.6) 09/08/20 17:37 D-Dimer 1324.85 ng/mlDDU (0-234) H 09/11/20 20:30 ABG pH 7.275 (7.320-7.450) L 09/13/20 04:22 POC ABG pCO2 54.7 mmHg (32.0-48.0) H 09/13/20 04:22 POC ABG pO2 47.1 mmHg (83-108) L 09/13/20 04:22 POC ABG HCO3 24.8 09/13/20 04:22 ABG O2 Saturation 80.0 (0-100) 09/13/20 04:22 POC ABG Base Excess -2.8 09/13/20 04:22 ABG Hemoglobin 14.6 (12.0-17.5) 09/13/20 04:22 ABG Oxyhemoglobin 79.4 (94-98) L 09/13/20 04:22 ABG Methemoglobin 0.3 (0.0-1.5) 09/13/20 04:22 ABG Sodium 141.4 mmol/L (136.0-145.0) 09/13/20 04:22 ABG Potassium 4.5 mmol/L (3.40-4.50) 09/13/20 04:22 ABG Chloride 106.0 mmol/L (98-107) 09/13/20 04:22 ABG Glucose 261 mg/dL (65-95) H 09/13/20 04:22 Carboxyhemoglobin 0.5 (0.5-1.5) 09/13/20 04:22 FiO2 % 80.0 09/13/20 04:22 Sodium 140 mmol/L (137-145) 09/13/20 Unknown Potassium 4.4 mmol/L (3.6-5.0) 09/13/20 Unknown Chloride 104.5 mmol/L (98-107) 09/13/20 Unknown Carbon Dioxide 24 mmol/L (22-30) 09/13/20 Unknown Anion Gap 16 mmol/L 09/13/20 Unknown BUN 54 mg/dL (7-17) H 09/13/20 Unknown Creatinine 1.6 mg/dL (0.6-1.2) H 09/13/20 Unknown Estimated GFR 38 ml/min 09/13/20 Unknown BUN/Creatinine Ratio 34 % 09/13/20 Unknown Glucose 255 mg/dL (65-100) H 09/13/20 Unknown POC Glucose 229 mg/dL (70-105) H 09/13/20 04:52 Osmolality 329 Mosm/kg 09/12/20 17:17 Lactic Acid 1.90 mmol/L (0.7-2.0) 09/12/20 17:17 Calcium 8.5 mg/dL (8.4-10.2) 09/13/20 Unknown Phosphorus 3.50 mg/dL (2.5-4.5) 09/13/20 Unknown Magnesium 2.30 mg/dL (1.7-2.3) 09/13/20 Unknown Ferritin 1434.0 ng/mL (10.0-200.0) H 09/11/20 Unknown Total Bilirubin 0.20 mg/dL (0.1-1.2) 09/13/20 Unknown AST 29 units/L (5-40) 09/13/20 Unknown ALT 27 units/L (7-56) 09/13/20 Unknown Alkaline Phosphatase 93 units/L (35-129) 09/13/20 Unknown Lactate Dehydrogenase 755 units/L (91-180) H 09/11/20 05:56 Troponin T < 0.010 ng/mL (0.00-0.029) 09/09/20 00:39 C-Reactive Protein 5.50 mg/dL (0.00-1.30) H 09/11/20 05:56 NT-Pro-B Natriuret Pep 503.6 pg/mL (0-900) 09/08/20 17:37 Total Protein 7.3 g/dL (6.3-8.2) 09/13/20 Unknown Albumin 2.8 g/dL (3.9-5) L 09/13/20 Unknown Albumin/Globulin Ratio 0.6 % 09/13/20 Unknown Lipase 47 units/L (13-60) 09/08/20 17:37 Procalcitonin 0.50 ng/mL (<0.15) 09/08/20 17:37 TSH 0.067 mlU/mL (0.270-4.200) L 09/12/20 17:17 Arterial Blood Glucose 261 mg/dL (65-95) H 09/13/20 04:22 Arterial Blood Ionized Calcium 4.9 mg/dL (4.6-5.3) 09/13/20 04:22 Urine Color Yellow (Yellow) 09/12/20 13:30 Urine Turbidity Clear (Clear) 09/12/20 13:30 Urine pH 5.0 (5.0-7.0) 09/12/20 13:30 Ur Specific [place] 1.011 (1.003-1.030) 09/12/20 13:30 Urine Protein 100 mg/dl mg/dL (Negative) 09/12/20 13:30 Urine Glucose (UA) 50 mg/dL (Negative) 09/12/20 13:30 Urine Ketones Neg mg/dL (Negative) 09/12/20 13:30 Urine Blood Lg (Negative) 09/12/20 13:30 Urine Nitrite Neg (Negative) 09/12/20 13:30 Urine Bilirubin Neg (Negative) 09/12/20 13:30 Urine Urobilinogen < 2.0 mg/dL (<2.0) 09/12/20 13:30 Ur Leukocyte Esterase Neg (Negative) 09/12/20 13:30 Urine WBC (Auto) 2.0 /HPF (0.0-6.0) 09/12/20 13:30 Urine RBC (Auto) 47.0 /HPF (0.0-6.0) 09/12/20 13:30 U Epithel Cells (Auto) 2.0 /HPF (0-13.0) 09/08/20 22:24 Urine Bacteria (Auto) 1+ /HPF (Negative) 09/12/20 13:30 Urine Mucus Few /HPF 09/12/20 13:30 Urine Osmolality 340 Mosm/kg 09/12/20 13:30 Urine Creatinine 43.2 mg/dL (0.1-20.0) H 09/12/20 13:30 Urine Sodium 58 mmol/L 09/12/20 13:30 Urine Urea Nitrogen 479 09/12/20 13:30 Urine Opiates Screen Presumptive negative 09/08/20 22:24 Urine Methadone Screen Presumptive negative 09/08/20 22:24 Ur Barbiturates Screen Presumptive negative 09/08/20 22:24 Ur Phencyclidine Scrn Presumptive negative 09/08/20 22:24 Ur Amphetamines Screen Presumptive negative 09/08/20 22:24 U Benzodiazepines Scrn Presumptive negative 09/08/20 22:24 Urine Cocaine Screen Presumptive negative 09/08/20 22:24 U Marijuana (THC) Screen Presumptive negative 09/08/20 22:24 Drugs of Abuse Note Disclamer 09/08/20 22:24 Coronavirus (PCR) Positive (Negative) A 09/09/20 09:00 Microbiology: Microbiology 09/08/20 17:32 Peripheral/Venous Blood Culture - Preliminary NO GROWTH AFTER 4 DAYS 09/08/20 17:32 Peripheral/Venous Blood Culture - Preliminary NO GROWTH AFTER 4 DAYS Begum/IV: Voiding Method External Female Catheter Active Medications - Current Medications Current Medications: Generic Name Dose Route Start Last Admin Trade Name Freq PRN Reason Stop Dose Admin Acetaminophen 650 mg 09/08/20 20:23 Acetaminophen 325 Mg Tab PO Q4H PRN Pain MILD(1-3)/Fever >100.5/CORTEZ Albuterol 2.5 mg 09/08/20 20:23 Albuterol 2.5 Mg/3 Ml Nebu IH Q4HRT PRN Shortness Of Breath Lipase/Protease/Amylase 1 each 09/11/20 11:45 Lipase 10,500/Protease 25,000/Amylase 43,750 (Units) Dr Cap FEEDTUBE PRN PRN For Clogged Feeding Tube Ascorbic Acid 500 mg 09/08/20 22:00 09/13/20 10:11 Ascorbic Acid 500 Mg Tab PO 500 mg BID ISIAH Administration Cholecalciferol 1,000 unit 09/09/20 10:00 09/13/20 10:11 Cholecalciferol (Vit D3) 1000 Unit (25 Mcg) Tab PO 1,000 unit QDAY ISIAH Administration Dexamethasone 8 mg 09/10/20 17:00 09/13/20 10:11 Dexamethasone 4 Mg/Ml Vial IV 09/19/20 10:01 8 mg DAILY ISIAH Administration Famotidine 20 mg 09/11/20 10:00 09/13/20 10:11 Famotidine 20 Mg/2 Ml Inj IV 20 mg BID ISIAH Administration Guaifenesin 10 ml 09/09/20 16:01 09/10/20 05:14 Guaifenesin Dm 200/20 Mg Oral Liqd 10 Ml PO 10 ml Q4H PRN Administration Cough Heparin Sodium (Porcine) 5,000 unit 09/08/20 22:00 09/13/20 10:11 Heparin 5,000 Unit/1 Ml Vial SUB-Q 5,000 unit Q12HR ISIAH Administration Hydralazine HCl 10 mg 09/11/20 21:33 Hydralazine 20 Mg/1 Ml Inj IV Q4H PRN Hypertension REMDESIVIR 100 mg/ Sodium 250 mls @ 500 mls/hr 09/13/20 21:00 Chloride IV 09/16/20 21:29 Q24HR@2100 ISIAH Fentanyl Citrate 2,000 mcg in 100 mls @ 7.45 mls/hr 09/10/20 23:00 09/13/20 07:45 Fentanyl Drip Premix IV 4 mcg/kg/hr TITR ISIAH 29.8 mls/hr Administration Protocol 1 MCG/KG/HR Norepinephrine 4 mg in 250 mls @ 7.5 mls/hr 09/11/20 17:00 09/13/20 08:10 Levophed Drip 4 Mg/Ns 250 Ml IV 2 mcg/min TITR ISIAH 7.5 mls/hr Administration Protocol 2 MCG/MIN Sodium Chloride 1,000 mls @ 10 mls/hr 09/11/20 20:45 Nacl 0.9% 1000 Ml IV DIRECT ISIAH Vasopressin 20 unit/ Sodium 101 mls @ 9.09 mls/hr 09/11/20 22:00 Chloride IV TITR ISIAH Protocol 0.03 UNITS/MIN Dopamine HCl/Dextrose 800 mg in 250 mls @ 5.588 mls/hr 09/11/20 23:00 09/13/20 10:11 Intropin Drip 800 Mg/D5w 250 Ml IV 6 mcg/kg/min TITR ISIAH 16.763 mls/hr Titration Protocol 2 MCG/KG/MIN Midazolam HCl 100 mg/ Sodium 100 mls @ 1 mls/hr 09/12/20 17:30 09/12/20 19:24 Chloride IV 2 mg/hr TITR ISIAH 2 mls/hr Titration Protocol 1 MG/HR Insulin Glargine 15 units 09/12/20 10:00 09/13/20 10:10 Insulin Glargine 100 Units/Ml SUB-Q 15 units DAILY ISIAH Administration Insulin Human Lispro 0 unit 09/11/20 12:00 09/13/20 05:34 Insulin Lispro 100 Unit/Ml SUB-Q 4 unit Q6HR ISIAH Administration Protocol Midazolam HCl 2 mg 09/12/20 17:30 Midazolam 2 Mg/2 Ml Inj IV Q10MIN PRN Sedation Simple Syrup 15 ml 09/11/20 11:45 Simple Syrup 15 Ml FEEDTUBE PRN PRN Hypoglycemia Simple Syrup 30 ml 09/11/20 11:45 Simple Syrup 15 Ml FEEDTUBE PRN PRN Hypoglycemia Sodium Bicarbonate 325 mg 09/11/20 11:45 Sodium Bicarbonate 325 Mg Tab FEEDTUBE PRN PRN For Clogged Feeding Tube Sodium Chloride 10 ml 09/08/20 22:00 09/13/20 10:14 Sodium Chloride 0.9% 10 Ml Flush Syringe IV 10 ml BID ISIAH Administration Sodium Chloride 10 ml 09/08/20 20:23 Sodium Chloride 0.9% 10 Ml Flush Syringe IV PRN PRN LINE FLUSH Sodium Chloride 50 ml 09/12/20 14:00 09/12/20 16:35 Sodium Chloride 0.9% 50 Ml Ivpb IV 09/16/20 21:01 50 ml Q24HR@2100 ISIAH Administration Zinc Sulfate 220 mg 09/08/20 22:00 09/13/20 10:11 Zinc Sulfate 220 Mg Cap PO 220 mg BID ISIAH Administration Nutrition/Malnutrition Assess - Dietary Evaluation Nutrition/Malnutrition Findings: Nutrition Notes Start: 09/11/20 11:37 Freq: Status: Active Protocol: Document 09/11/20 11:37 (Rec: 09/11/20 11:45 [email or web address]) Nutrition Notes Need for Assessment generated from: MD Order Initial or Follow up Assessment Current Diagnosis Acute Kidney Injury, Respiratory Failure Other Pertinent Diagnosis pneu, COVID Current Diet No diet Labs/Tests Na 133 BUN 54 Cr 1.6 BG 318 Pertinent Medications Propofol at 17.88 ml/hr ( 472kcal) Decadron Lantus Height 5 ft 8 in Weight 149 kg [place] Body Weight (kg) 63.63 BMI 49.9 Weight Status Morbidly Obese Subjective/Other Information MD order for TF. Pt on vent. Burn Absent Trauma Absent Current % PO Negligible Minimum of two criteria No physical signs of malnutrition #1 Nutrition Diagnosis Inadequate oral intake Etiology ARF As Evidenced by Signs and Symptoms pt on vent and unable to consume PO Is patient on ventilator? Yes Is Patient Ambulatory and/or Out of Bed No REE-([facility]-confined to bed) 2457.420 Kcal/Kg value to use for calculation 13 Approximate Energy Requirements Using 1937 kcal/Kg Calculation Used for Recommendations Kcal/kg Additional Notes Protein: up to 2.5g/kg IBW (up to 159g) Fluid: 1 ml/kcal or per Nutrition Intervention Change Diet Order: Start TF Nutrition Support: Glucerna 1.2 at 65 ml/hr Flush 100 ml q4h or per MD Kcal 1,872 Protein (gm) 94 Carbohydrates (gm) 179 Fat (gm) 94 Fluid (mL) 1,256 Goal #1 Meet at least 75% of protein and energy needs via TF Anticipated Discharge Needs: Unable to determine at this time Follow-Up By: 09/13/20 Additional Comments FU for TF start and tolerance - Attestation Statement I have reviewed and agreed w/ Malnutrition eval & tx plan: Yes
--- NOTE | 2020-09-13 12:00 | Progress Note ---
Assessment and Plan Cultures: SARS CoV2 PCR: Positive 09/08/2020 blood culture: No growth 09/08/2020 urine culture: Usual skin stefania A/P: 75-year-old female with hypertension, diabetes, obesity hypoventilation syndrome was admitted to the hospital with cough, shortness of breath, not feeling well: #Shock: no clear evidence of bacterial infection. Completed empiric CAP coverage. Probably related to severe/critical COVID. #Bilateral pneumonia: Secondary to COVID-19, critical disease. #Acute hypoxic respiratory failure: On the vent with very high requirements. #Morbid obesity #Hypertension, diabetes #Leukopenia, mild thrombocytopenia, transaminitis: Likely related to COVID-19 #NICOLASA: monitor creatinine. Recs: -Continue remdesivir x 5 days -IV Tocilizumab administered 09/12/2020 -continue steroids -completed abx -prophylactic anticoagulation based on d-dimer per hospital protocol -trend ferritin, LDH, d-dimer, CRP every 2-3 days for risk stratification and to assess disease progression Rory Ahuja MD, FACP [facility] O: [phone] F: [phone] Subjective Date of service: 09/13/20 Principal diagnosis: Ac hypoxemic resp failure; ARDS; COVID-19 infxn; PNA; DM II; Obesity Interval history: Afebrile. Remains on the vent with high requirements. 90% FiO2, 18 of PEEP. Received Actemra yesterday. On dopamine and Levophed. Completed antibiotics. Objective - Exam Narrative Exam: Physical Exam (reviewed in chart to minimize risk of transmission) Constitutional: deferred Head, Ears, Nose: deferred Eyes: deferred Neck: deferred Oral: deferred Cardiovascular: deferred Respiratory: deferred GI: deferred Musculoskeletal: deferred Skin: deferred Hem/Lymphatic: deferred Psych: deferred Neurological: deferred - Constitutional Vitals: Vital Signs Temp Pulse Resp BP Pulse Ox 97.6 F 129 H 24 222/121 94 09/13/20 03:38 09/13/20 11:20 09/13/20 11:20 09/13/20 10:40 09/13/20 11:20 Temperature -Last 24 Hours Temperature 97.6 F Temperature 97.6 F Temperature 97.7 F Temperature 98.9 F Temperature 98.6 F - Labs CBC & Chem 7: 09/13/20 Unknown 09/13/20 Unknown Labs: Abnormal lab results 09/12/20 09/12/20 09/12/20 Range/Units 11:58 13:30 17:17 Hgb (10.1-14.3) gm/dl Hct (30.3-42.9) % Plt Count (140-440) K/mm3 Seg Neuts % (Manual) (40.0-70.0) % Lymphocytes % (Manual) (13.4-35.0) % Seg Neutrophils # Man (1.8-7.7) K/mm3 Lymphocytes # (Manual) (1.2-5.4) K/mm3 ABG pH (7.320-7.450) POC ABG pCO2 (32.0-48.0) mmHg POC ABG pO2 (83-108) mmHg ABG Oxyhemoglobin (94-98) ABG Glucose (65-95) mg/dL BUN (7-17) mg/dL Creatinine (0.6-1.2) mg/dL Glucose (65-100) mg/dL POC Glucose 329 H (70-105) mg/dL Albumin (3.9-5) g/dL TSH 0.067 L (0.270-4.200) mlU/mL Arterial Blood Glucose (65-95) mg/dL Urine Creatinine 43.2 H (0.1-20.0) mg/dL 09/12/20 09/12/20 09/12/20 Range/Units 17:17 17:55 23:19 Hgb 14.5 H (10.1-14.3) gm/dl Hct 43.5 H (30.3-42.9) % Plt Count (140-440) K/mm3 Seg Neuts % (Manual) 96.0 H (40.0-70.0) % Lymphocytes % (Manual) 1.0 L (13.4-35.0) % Seg Neutrophils # Man 9.8 H (1.8-7.7) K/mm3 Lymphocytes # (Manual) 0.1 L (1.2-5.4) K/mm3 ABG pH (7.320-7.450) POC ABG pCO2 (32.0-48.0) mmHg POC ABG pO2 (83-108) mmHg ABG Oxyhemoglobin (94-98) ABG Glucose (65-95) mg/dL BUN (7-17) mg/dL Creatinine (0.6-1.2) mg/dL Glucose (65-100) mg/dL POC Glucose 425 H 348 H (70-105) mg/dL Albumin (3.9-5) g/dL TSH (0.270-4.200) mlU/mL Arterial Blood Glucose (65-95) mg/dL Urine Creatinine (0.1-20.0) mg/dL 09/13/20 09/13/20 09/13/20 Range/Units 03:32 04:22 04:52 Hgb (10.1-14.3) gm/dl Hct (30.3-42.9) % Plt Count (140-440) K/mm3 Seg Neuts % (Manual) (40.0-70.0) % Lymphocytes % (Manual) (13.4-35.0) % Seg Neutrophils # Man (1.8-7.7) K/mm3 Lymphocytes # (Manual) (1.2-5.4) K/mm3 ABG pH 7.276 L 7.275 L (7.320-7.450) POC ABG pCO2 54.0 H 54.7 H (32.0-48.0) mmHg POC ABG pO2 46.6 L 47.1 L (83-108) mmHg ABG Oxyhemoglobin 78.9 L 79.4 L (94-98) ABG Glucose 260 H 261 H (65-95) mg/dL BUN (7-17) mg/dL Creatinine (0.6-1.2) mg/dL Glucose (65-100) mg/dL POC Glucose 229 H (70-105) mg/dL Albumin (3.9-5) g/dL TSH (0.270-4.200) mlU/mL Arterial Blood Glucose 260 H 261 H (65-95) mg/dL Urine Creatinine (0.1-20.0) mg/dL 09/13/20 09/13/20 09/13/20 Range/Units 11:53 Unknown Unknown Hgb (10.1-14.3) gm/dl Hct (30.3-42.9) % Plt Count 135 L (140-440) K/mm3 Seg Neuts % (Manual) (40.0-70.0) % Lymphocytes % (Manual) (13.4-35.0) % Seg Neutrophils # Man (1.8-7.7) K/mm3 Lymphocytes # (Manual) (1.2-5.4) K/mm3 ABG pH (7.320-7.450) POC ABG pCO2 (32.0-48.0) mmHg POC ABG pO2 (83-108) mmHg ABG Oxyhemoglobin (94-98) ABG Glucose (65-95) mg/dL BUN 54 H (7-17) mg/dL Creatinine 1.6 H (0.6-1.2) mg/dL Glucose 255 H (65-100) mg/dL POC Glucose 302 H (70-105) mg/dL Albumin 2.8 L (3.9-5) g/dL TSH (0.270-4.200) mlU/mL Arterial Blood Glucose (65-95) mg/dL Urine Creatinine (0.1-20.0) mg/dL
[2020-09-13] MEDS: MIDAZOLAM 2 MG/2 ML INJ IV PRN (12:05)
[2020-09-13] MEDS ORDERED: fentaNYL 100 MCG/2 ML INJ IV PRN (12:12)
--- NOTE | 2020-09-13 12:27 | Progress Note ---
Assessment and Plan Acute hypoxemic respiratory failure Acute respiratory distress syndrome COVID-19 infection Bilateral pneumonia Diabetes Hypertension Obesity Leukopenia Elevated serum inflammatory markers to include D-dimer, ferritin and LDH - begin daily proning - schedule bid duoneb treatments - weran vasopressors for target MAP > 65 mmHg - resume Propofol for better sedation while proned - FENA > 1%; will get nephrology evaluation re: increased Cr level - chacon catheter for dtrict I's & O's - lactate WNL - lower extremity dopplers -ve for DVT - continue care as below otherwise; - continue Daily SAT and SBT assessment as tolerated - continue to wean supplemental oxygen for target O2 sat's > 90% acutely - VAP bundle addressed - continue lung protective strategies - continue bronchodilators with pulmonary hygiene per RT - wean per pulmonary driven protocols otherwise - avoid nephrotoxins, renally dose all medications - continue accuchecks with glycemic control per SSI (While critically ill target blood glucose of 140-180 mg/dL; avoid hypoglycemia) - sedation prn for target RASS 0 to -1 - continue to avoid benzodiazepine's, reduce the possibility of delirium - complete AB's per ID rec's - prn analgesia per CPOT score - Maintenance of sleep-wake cycle, avoid delirium - continue enteral nutritional support at goal rate as tolerated - G.I. & VTE prophylaxis - PT/OT/ROM exercises - continue mobility protocols for pressure ulcer prophylaxis - Monitor hemodynamics closely - continue other care per attending / other consultants - discharge planning ongoing concurrently COVID SPECIFIC INTERVENTIONS - Remdesivir as per ID/Pulmonary developed protocols (ordered) - to receive Actemra - continue systemic steroids for severe COVID-19 infection empirically - follow repeat COVID tests results - zinc and vitamin C supplementation - Monitor inflammatory markers per facility protocol - ferritin, Ddimer, CRP - therapeutic anticoagulation per system Protocol based on d-dimer and clinical considerations - Continue contact and airborne isolation .... Re-evaluate in am & prn CONDITION: CRITICAL PROGNOSIS: GUARDED CODE STATUS: FULL CODE The high probability of a clinically significant, sudden or life-threatening deterioration of the [respiratory, cardiovascular & neurologic] system(s) requi red my full and direct attention, intervention and personal management. The aggregate critical care time was [38] minutes without overlap. Time includes spent on; [x] Data Review and interpretation [x] Patient assessment and monitoring of vital signs [x] Documentation [x] Medication orders and management Subjective Date of service: 09/13/20 Principal diagnosis: Ac hypoxemic resp failure; ARDS; COVID-19 infxn; PNA; DM II; Obesity Interval history: Patient is seen today for: Ac hypoxemic resp failure; ARDS; COVID-19 infxn; PNA; DM II; Obesity Seen and examined at bedside; 24hour events reviewed; nursing and respiratory care staff consulted; no adverse overnight events reported to me; resting in bed; remains on MVS; agitated overnight and has continued to de-saturate needing increased peep and on 100% FiO2; remains on Dopamine & Levophed drip re: hypotension / bradycardia Objective Vital Signs - 12hr 09/13/20 09/13/20 09/13/20 00:29 00:31 00:41 Temperature Pulse Rate 58 L 58 L 52 L Respiratory 25 H 25 H Rate Blood Pressure 171/80 171/80 170/74 O2 Sat by Pulse 96 96 97 Oximetry 09/13/20 09/13/20 09/13/20 00:51 01:01 01:11 Temperature Pulse Rate 48 L 48 L 49 L Respiratory 25 H 25 H 25 H Rate Blood Pressure 164/69 159/70 160/71 O2 Sat by Pulse 97 97 97 Oximetry 09/13/20 09/13/20 09/13/20 01:21 01:31 01:40 Temperature Pulse Rate 49 L 51 L 49 L Respiratory 25 H 25 H 25 H Rate Blood Pressure 163/71 156/70 165/74 O2 Sat by Pulse 97 96 96 Oximetry 09/13/20 09/13/20 09/13/20 01:50 02:00 02:10 Temperature Pulse Rate 50 L 48 L 52 L Respiratory 25 H 25 H 23 Rate Blood Pressure 160/74 154/70 150/67 O2 Sat by Pulse 98 97 98 Oximetry 09/13/20 09/13/20 09/13/20 02:20 02:30 02:40 Temperature Pulse Rate 52 L 54 L 54 L Respiratory 25 H 25 H 25 H Rate Blood Pressure 138/68 136/66 142/67 O2 Sat by Pulse 98 98 98 Oximetry 09/13/20 09/13/20 09/13/20 02:50 03:00 03:10 Temperature Pulse Rate 50 L 50 L 62 Respiratory 25 H 25 H 25 H Rate Blood Pressure 155/70 166/74 154/69 O2 Sat by Pulse 98 98 99 Oximetry 09/13/20 09/13/20 09/13/20 03:20 03:30 03:38 Temperature 97.6 F Pulse Rate 62 62 Respiratory 26 H 25 H Rate Blood Pressure 85/47 113/59 O2 Sat by Pulse 100 100 Oximetry 09/13/20 09/13/20 09/13/20 03:40 03:50 04:00 Temperature Pulse Rate 127 H 85 122 H Respiratory 25 H 23 24 Rate Blood Pressure 212/119 136/73 135/75 O2 Sat by Pulse 99 99 93 Oximetry 09/13/20 09/13/20 09/13/20 04:10 04:20 04:30 Temperature Pulse Rate 114 H 120 H 119 H Respiratory 25 H 25 H 25 H Rate Blood Pressure 130/82 127/83 123/81 O2 Sat by Pulse 93 92 92 Oximetry 09/13/20 09/13/20 09/13/20 04:40 04:50 04:55 Temperature Pulse Rate 115 H 99 H 105 H Respiratory 25 H 25 H Rate Blood Pressure 125/79 105/66 130/73 O2 Sat by Pulse 92 91 Oximetry 09/13/20 09/13/20 09/13/20 05:00 05:10 05:20 Temperature Pulse Rate 98 H 85 76 Respiratory 25 H 25 H 25 H Rate Blood Pressure 127/74 132/76 143/78 O2 Sat by Pulse 93 100 Oximetry 09/13/20 09/13/20 09/13/20 05:30 05:31 05:40 Temperature Pulse Rate 59 L 57 L Respiratory 25 H 25 H Rate Blood Pressure 141/68 133/70 O2 Sat by Pulse 91 Oximetry 09/13/20 09/13/20 09/13/20 05:50 06:00 06:10 Temperature Pulse Rate 57 L 57 L 76 Respiratory 25 H 25 H 25 H Rate Blood Pressure 142/69 142/65 164/87 O2 Sat by Pulse 97 95 91 Oximetry 09/13/20 09/13/20 09/13/20 06:20 06:30 06:40 Temperature Pulse Rate 70 68 62 Respiratory 25 H 25 H 25 H Rate Blood Pressure 144/72 136/72 133/72 O2 Sat by Pulse 91 87 Oximetry 09/13/20 09/13/20 09/13/20 06:50 07:00 07:10 Temperature Pulse Rate 61 68 67 Respiratory 26 H 25 H 25 H Rate Blood Pressure 135/69 87/49 95/53 O2 Sat by Pulse 90 Oximetry 09/13/20 09/13/20 09/13/20 07:20 07:30 07:40 Temperature Pulse Rate 81 103 H 124 H Respiratory 27 H 22 22 Rate Blood Pressure 170/83 137/82 162/91 O2 Sat by Pulse 98 Oximetry 09/13/20 09/13/20 09/13/20 07:50 08:00 08:10 Temperature Pulse Rate 130 H 100 H 96 H Respiratory 25 H 25 H 26 H Rate Blood Pressure 173/100 173/100 78/38 O2 Sat by Pulse 95 90 79 L Oximetry 09/13/20 09/13/20 09/13/20 08:20 08:29 08:30 Temperature Pulse Rate 94 H 70 76 Respiratory 25 H 25 H Rate Blood Pressure 78/38 107/52 107/52 O2 Sat by Pulse 100 100 100 Oximetry 09/13/20 09/13/20 09/13/20 08:40 08:50 09:00 Temperature Pulse Rate 51 L 54 L 73 Respiratory 25 H 25 H 25 H Rate Blood Pressure 107/52 181/63 181/63 O2 Sat by Pulse 100 100 100 Oximetry 09/13/20 09/13/20 09/13/20 09:10 09:20 09:30 Temperature Pulse Rate 98 H 109 H 114 H Respiratory 26 H 25 H 25 H Rate Blood Pressure 216/95 218/104 205/104 O2 Sat by Pulse 100 100 100 Oximetry 09/13/20 09/13/20 09/13/20 09:40 09:50 10:00 Temperature Pulse Rate 115 H 117 H 115 H Respiratory 26 H 19 25 H Rate Blood Pressure 205/104 195/99 204/105 O2 Sat by Pulse 100 100 100 Oximetry 09/13/20 09/13/20 09/13/20 10:10 10:20 10:30 Temperature Pulse Rate 124 H 111 H 110 H Respiratory 25 H 25 H 24 Rate Blood Pressure 204/105 205/101 222/121 O2 Sat by Pulse 100 100 100 Oximetry 09/13/20 09/13/20 09/13/20 10:40 10:50 11:00 Temperature Pulse Rate 112 H 113 H 116 H Respiratory 26 H 25 H 25 H Rate Blood Pressure 222/121 O2 Sat by Pulse 100 100 100 Oximetry 09/13/20 09/13/20 11:10 11:20 Temperature Pulse Rate 132 H 129 H Respiratory 25 H 24 Rate Blood Pressure O2 Sat by Pulse 95 94 Oximetry Constitutional: appears uncomfortable, other (elderly obese female with mildly increased respiratory effort at rest on MVS) Eyes: non-icteric ENT: oropharynx moist, other (ETT 24 cm STEVEN) Neck: supple, other (large circumference) Effort: mildly labored Ascultation: Bilateral: diminished breath sounds, rhonchi Percussion: Bilateral: not dull Cardiovascular: regular rate and rhythm Gastrointestinal: normoactive bowel sounds, soft, non-tender, non-distended (protuberant) Integumentary: normal Extremities: no cyanosis, no edema, pulses normal, no ischemia or petechiae Neurologic: non-focal exam (grossly), pupils equal and round, motor strength normal and, other (sedated) Psychiatric: other (unable to assess) CBC and BMP: 09/13/20 Unknown 09/13/20 Unknown ABG, PT/INR, D-dimer: ABG ABG pH 7.275 (7.320-7.450) L 09/13/20 04:22 POC ABG pCO2 54.7 mmHg (32.0-48.0) H 09/13/20 04:22 POC ABG pO2 47.1 mmHg (83-108) L 09/13/20 04:22 POC ABG HCO3 24.8 09/13/20 04:22 ABG O2 Saturation 80.0 (0-100) 09/13/20 04:22 PT/INR, D-dimer PT 14.2 Sec. (12.2-14.9) 09/08/20 17:37 INR 1.04 (0.87-1.13) 09/08/20 17:37 D-Dimer 1324.85 ng/mlDDU (0-234) H 09/11/20 20:30 Abnormal lab findings: Abnormal Labs 09/08/20 09/08/20 09/08/20 17:37 17:37 17:37 WBC 4.3 L Hgb Hct Plt Count 106 L Lymph % (Auto) [place] % (Auto) 7.5 H Lymph # (Auto) 0.6 L Seg Neutrophils % 77.4 H Seg Neuts % (Manual) Lymphocytes % (Manual) Seg Neutrophils # Man Lymphocytes # (Manual) D-Dimer 741.67 H ABG pH POC ABG pCO2 POC ABG pO2 ABG Hemoglobin ABG Oxyhemoglobin ABG Sodium ABG Glucose Carboxyhemoglobin Sodium 129 L Chloride 91.9 L BUN 32 H Creatinine 1.5 H Glucose 200 H POC Glucose Calcium 8.1 L Ferritin AST 49 H Lactate Dehydrogenase C-Reactive Protein Total Protein Albumin 2.7 L TSH Arterial Blood Glucose Arterial Blood Ionized Calcium Ur Specific [place] Urine Creatinine Coronavirus (PCR) 09/08/20 09/08/20 09/08/20 17:37 17:37 22:24 WBC Hgb Hct Plt Count Lymph % (Auto) [place] % (Auto) Lymph # (Auto) Seg Neutrophils % Seg Neuts % (Manual) Lymphocytes % (Manual) Seg Neutrophils # Man Lymphocytes # (Manual) D-Dimer ABG pH POC ABG pCO2 POC ABG pO2 ABG Hemoglobin ABG Oxyhemoglobin ABG Sodium ABG Glucose Carboxyhemoglobin Sodium Chloride BUN Creatinine Glucose 201 H POC Glucose Calcium Ferritin 731.2 H AST Lactate Dehydrogenase 396 H C-Reactive Protein 7.00 H Total Protein Albumin TSH Arterial Blood Glucose Arterial Blood Ionized Calcium Ur Specific [place] 1.035 H Urine Creatinine Coronavirus (PCR) 09/08/20 09/09/20 09/09/20 23:35 07:30 08:28 WBC 3.4 L Hgb 15.5 H Hct 47.1 H Plt Count 95 L Lymph % (Auto) 9.5 L [place] % (Auto) Lymph # (Auto) 0.3 L Seg Neutrophils % 85.2 H Seg Neuts % (Manual) Lymphocytes % (Manual) Seg Neutrophils # Man Lymphocytes # (Manual) D-Dimer ABG pH POC ABG pCO2 POC ABG pO2 ABG Hemoglobin ABG Oxyhemoglobin ABG Sodium ABG Glucose Carboxyhemoglobin Sodium Chloride BUN Creatinine Glucose POC Glucose 188 H 281 H Calcium Ferritin AST Lactate Dehydrogenase C-Reactive Protein Total Protein Albumin TSH Arterial Blood Glucose Arterial Blood Ionized Calcium Ur Specific [place] Urine Creatinine Coronavirus (PCR) 09/09/20 09/09/20 09/09/20 08:28 09:00 11:48 WBC Hgb Hct Plt Count Lymph % (Auto) [place] % (Auto) Lymph # (Auto) Seg Neutrophils % Seg Neuts % (Manual) Lymphocytes % (Manual) Seg Neutrophils # Man Lymphocytes # (Manual) D-Dimer ABG pH POC ABG pCO2 POC ABG pO2 ABG Hemoglobin ABG Oxyhemoglobin ABG Sodium ABG Glucose Carboxyhemoglobin Sodium 130 L Chloride 93.5 L BUN 31 H Creatinine 1.3 H Glucose 266 H POC Glucose 354 H Calcium Ferritin AST 48 H Lactate Dehydrogenase C-Reactive Protein Total Protein Albumin 2.8 L TSH Arterial Blood Glucose Arterial Blood Ionized Calcium Ur Specific [place] Urine Creatinine Coronavirus (PCR) Positive A 09/09/20 09/09/20 09/10/20 17:21 21:15 08:00 WBC Hgb Hct Plt Count Lymph % (Auto) [place] % (Auto) Lymph # (Auto) Seg Neutrophils % Seg Neuts % (Manual) Lymphocytes % (Manual) Seg Neutrophils # Man Lymphocytes # (Manual) D-Dimer ABG pH POC ABG pCO2 POC ABG pO2 ABG Hemoglobin ABG Oxyhemoglobin ABG Sodium ABG Glucose Carboxyhemoglobin Sodium Chloride BUN Creatinine Glucose POC Glucose 332 H 226 H 240 H Calcium Ferritin AST Lactate Dehydrogenase C-Reactive Protein Total Protein Albumin TSH Arterial Blood Glucose Arterial Blood Ionized Calcium Ur Specific [place] Urine Creatinine Coronavirus (PCR) 09/10/20 09/10/20 09/10/20 12:12 15:14 16:43 WBC Hgb Hct Plt Count Lymph % (Auto) [place] % (Auto) Lymph # (Auto) Seg Neutrophils % Seg Neuts % (Manual) Lymphocytes % (Manual) Seg Neutrophils # Man Lymphocytes # (Manual) D-Dimer ABG pH POC ABG pCO2 48.5 H POC ABG pO2 51.9 L ABG Hemoglobin ABG Oxyhemoglobin 85.1 L ABG Sodium 135.6 L ABG Glucose 310 H Carboxyhemoglobin Sodium 132 L Chloride 93.2 L BUN 43 H Creatinine 1.6 H Glucose 277 H POC Glucose 267 H Calcium Ferritin AST 49 H Lactate Dehydrogenase C-Reactive Protein Total Protein 8.3 H Albumin 3.0 L TSH Arterial Blood Glucose 310 H Arterial Blood Ionized Calcium Ur Specific [place] Urine Creatinine Coronavirus (PCR) 09/10/20 09/10/20 09/11/20 21:34 23:33 05:56 WBC Hgb Hct Plt Count Lymph % (Auto) [place] % (Auto) Lymph # (Auto) Seg Neutrophils % Seg Neuts % (Manual) Lymphocytes % (Manual) Seg Neutrophils # Man Lymphocytes # (Manual) D-Dimer ABG pH POC ABG pCO2 POC ABG pO2 ABG Hemoglobin ABG Oxyhemoglobin ABG Sodium 135.9 L ABG Glucose 341 H Carboxyhemoglobin Sodium 133 L Chloride 94.2 L BUN 54 H Creatinine 1.6 H Glucose 318 H POC Glucose 306 H Calcium Ferritin AST 46 H Lactate Dehydrogenase C-Reactive Protein Total Protein Albumin 2.7 L TSH Arterial Blood Glucose 341 H Arterial Blood Ionized Calcium 4.5 L Ur Specific [place] Urine Creatinine Coronavirus (PCR) 09/11/20 09/11/20 09/11/20 05:56 07:22 09:00 WBC Hgb Hct Plt Count Lymph % (Auto) [place] % (Auto) Lymph # (Auto) Seg Neutrophils % Seg Neuts % (Manual) Lymphocytes % (Manual) Seg Neutrophils # Man Lymphocytes # (Manual) D-Dimer ABG pH POC ABG pCO2 POC ABG pO2 80.1 L ABG Hemoglobin ABG Oxyhemoglobin ABG Sodium 134.5 L ABG Glucose 334 H Carboxyhemoglobin Sodium Chloride BUN Creatinine Glucose POC Glucose 305 H Calcium Ferritin AST Lactate Dehydrogenase 755 H C-Reactive Protein 5.50 H Total Protein Albumin TSH Arterial Blood Glucose 334 H Arterial Blood Ionized Calcium Ur Specific [place] Urine Creatinine Coronavirus (PCR) 09/11/20 09/11/20 09/11/20 11:33 18:17 19:00 WBC Hgb Hct Plt Count Lymph % (Auto) [place] % (Auto) Lymph # (Auto) Seg Neutrophils % Seg Neuts % (Manual) Lymphocytes % (Manual) Seg Neutrophils # Man Lymphocytes # (Manual) D-Dimer ABG pH POC ABG pCO2 POC ABG pO2 146.4 H ABG Hemoglobin ABG Oxyhemoglobin 98.3 H ABG Sodium ABG Glucose 267 H Carboxyhemoglobin 0.4 L Sodium Chloride BUN Creatinine Glucose POC Glucose 304 H 296 H Calcium Ferritin AST Lactate Dehydrogenase C-Reactive Protein Total Protein Albumin TSH Arterial Blood Glucose 267 H Arterial Blood Ionized Calcium Ur Specific [place] Urine Creatinine Coronavirus (PCR) 09/11/20 09/11/20 09/11/20 20:30 22:23 Unknown WBC Hgb Hct Plt Count Lymph % (Auto) [place] % (Auto) Lymph # (Auto) Seg Neutrophils % Seg Neuts % (Manual) Lymphocytes % (Manual) Seg Neutrophils # Man Lymphocytes # (Manual) D-Dimer 1324.85 H ABG pH POC ABG pCO2 POC ABG pO2 ABG Hemoglobin ABG Oxyhemoglobin ABG Sodium ABG Glucose Carboxyhemoglobin Sodium Chloride BUN Creatinine Glucose POC Glucose 268 H Calcium Ferritin 1434.0 H AST Lactate Dehydrogenase C-Reactive Protein Total Protein Albumin TSH Arterial Blood Glucose Arterial Blood Ionized Calcium Ur Specific [place] Urine Creatinine Coronavirus (PCR) 09/11/20 09/12/20 09/12/20 Unknown 04:00 05:30 WBC Hgb Hct Plt Count Lymph % (Auto) [place] % (Auto) Lymph # (Auto) Seg Neutrophils % Seg Neuts % (Manual) Lymphocytes % (Manual) Seg Neutrophils # Man Lymphocytes # (Manual) D-Dimer ABG pH POC ABG pCO2 POC ABG pO2 190.7 H ABG Hemoglobin 17.7 H ABG Oxyhemoglobin 98.9 H ABG Sodium ABG Glucose 322 H Carboxyhemoglobin 0.2 L Sodium Chloride BUN 58 H Creatinine 1.8 H Glucose 279 H POC Glucose 313 H Calcium 7.9 L Ferritin AST Lactate Dehydrogenase C-Reactive Protein Total Protein Albumin TSH Arterial Blood Glucose 322 H Arterial Blood Ionized Calcium Ur Specific [place] Urine Creatinine Coronavirus (PCR) 09/12/20 09/12/20 09/12/20 08:43 11:58 13:30 WBC Hgb Hct Plt Count Lymph % (Auto) [place] % (Auto) Lymph # (Auto) Seg Neutrophils % Seg Neuts % (Manual) Lymphocytes % (Manual) Seg Neutrophils # Man Lymphocytes # (Manual) D-Dimer ABG pH POC ABG pCO2 POC ABG pO2 ABG Hemoglobin ABG Oxyhemoglobin ABG Sodium ABG Glucose Carboxyhemoglobin Sodium Chloride BUN 51 H Creatinine 1.4 H Glucose 317 H POC Glucose 329 H Calcium Ferritin AST Lactate Dehydrogenase C-Reactive Protein Total Protein Albumin 3.0 L TSH Arterial Blood Glucose Arterial Blood Ionized Calcium Ur Specific [place] Urine Creatinine 43.2 H Coronavirus (PCR) 09/12/20 09/12/20 09/12/20 17:17 17:17 17:55 WBC Hgb 14.5 H Hct 43.5 H Plt Count Lymph % (Auto) [place] % (Auto) Lymph # (Auto) Seg Neutrophils % Seg Neuts % (Manual) 96.0 H Lymphocytes % (Manual) 1.0 L Seg Neutrophils # Man 9.8 H Lymphocytes # (Manual) 0.1 L D-Dimer ABG pH POC ABG pCO2 POC ABG pO2 ABG Hemoglobin ABG Oxyhemoglobin ABG Sodium ABG Glucose Carboxyhemoglobin Sodium Chloride BUN Creatinine Glucose POC Glucose 425 H Calcium Ferritin AST Lactate Dehydrogenase C-Reactive Protein Total Protein Albumin TSH 0.067 L Arterial Blood Glucose Arterial Blood Ionized Calcium Ur Specific [place] Urine Creatinine Coronavirus (PCR) 09/12/20 09/13/20 09/13/20 23:19 03:32 04:22 WBC Hgb Hct Plt Count Lymph % (Auto) [place] % (Auto) Lymph # (Auto) Seg Neutrophils % Seg Neuts % (Manual) Lymphocytes % (Manual) Seg Neutrophils # Man Lymphocytes # (Manual) D-Dimer ABG pH 7.276 L 7.275 L POC ABG pCO2 54.0 H 54.7 H POC ABG pO2 46.6 L 47.1 L ABG Hemoglobin ABG Oxyhemoglobin 78.9 L 79.4 L ABG Sodium ABG Glucose 260 H 261 H Carboxyhemoglobin Sodium Chloride BUN Creatinine Glucose POC Glucose 348 H Calcium Ferritin AST Lactate Dehydrogenase C-Reactive Protein Total Protein Albumin TSH Arterial Blood Glucose 260 H 261 H Arterial Blood Ionized Calcium Ur Specific [place] Urine Creatinine Coronavirus (PCR) 09/13/20 09/13/20 09/13/20 04:52 11:53 Unknown WBC Hgb Hct Plt Count Lymph % (Auto) [place] % (Auto) Lymph # (Auto) Seg Neutrophils % Seg Neuts % (Manual) Lymphocytes % (Manual) Seg Neutrophils # Man Lymphocytes # (Manual) D-Dimer ABG pH POC ABG pCO2 POC ABG pO2 ABG Hemoglobin ABG Oxyhemoglobin ABG Sodium ABG Glucose Carboxyhemoglobin Sodium Chloride BUN 54 H Creatinine 1.6 H Glucose 255 H POC Glucose 229 H 302 H Calcium Ferritin AST Lactate Dehydrogenase C-Reactive Protein Total Protein Albumin 2.8 L TSH Arterial Blood Glucose Arterial Blood Ionized Calcium Ur Specific [place] Urine Creatinine Coronavirus (PCR) 09/13/20 Unknown WBC Hgb Hct Plt Count 135 L Lymph % (Auto) [place] % (Auto) Lymph # (Auto) Seg Neutrophils % Seg Neuts % (Manual) Lymphocytes % (Manual) Seg Neutrophils # Man Lymphocytes # (Manual) D-Dimer ABG pH POC ABG pCO2 POC ABG pO2 ABG Hemoglobin ABG Oxyhemoglobin ABG Sodium ABG Glucose Carboxyhemoglobin Sodium Chloride BUN Creatinine Glucose POC Glucose Calcium Ferritin AST Lactate Dehydrogenase C-Reactive Protein Total Protein Albumin TSH Arterial Blood Glucose Arterial Blood Ionized Calcium Ur Specific [place] Urine Creatinine Coronavirus (PCR) Chest x-ray: pending Allied health notes reviewed: nursing
[2020-09-13] MEDS: IPRATROPIUM/ALBUTEROL SULFATE 3 ML AMPUL.NEB IH SCH (12:35)
[2020-09-13] MEDS ORDERED: fentaNYL DRIP Premix 2,000 MCG/100 ML BAG IV SCH (13:00)
--- NOTE | 2020-09-13 16:16 | Event Note ---
Date: 09/13/20 Staff concerned a line is not function. ginger pressure system found transduced to cable for CVP cables reversed Bloxom dressing taken down with tubing. Bloxom kit used to rewire through existing ginger. Catheter replaced with femoral ginger catheter. Bloxom transduced, wave form observed, square waveform test completed and line zeroed. Ginger able to pull back blood. New dressing with stat lock applied. New catheter sutured into place. MAP 95 NE decreased RN aware CCT: 60 min total Not included in the CCT.
[2020-09-13] MEDS: DOPamine/D5W 800 MG/250 ML 800 MG/250 ML BAG IV SCH (17:25)
[2020-09-13] MEDS: MIDAZOLAM 100 MG in SODIUM CHLORIDE 0.9% 80 ML IV SCH (19:44)
[2020-09-13] MEDS: REMDESIVIR 100 MG in SODIUM CHLORIDE 0.9% 250ML 250 ML IV SCH (22:17)
[2020-09-13] MEDS: SODIUM CHLORIDE 0.9% 50 ML IVPB IV SCH (22:20)
[2020-09-14] MEDS: INSULIN LISPRO 100 UNIT/ML SUB-Q SCH ×4 (01:18→17:34)
[2020-09-14] MEDS: fentaNYL DRIP Premix 2,000 MCG/100 ML BAG IV SCH ×7 (01:19→23:34)
[2020-09-14] MEDS: IPRATROPIUM/ALBUTEROL SULFATE 3 ML AMPUL.NEB IH SCH ×3 (08:03→21:00)
--- NOTE | 2020-09-14 08:44 | XRay Report ---
CHEST - 1 VIEW 0730 hours INDICATION: 09/11/2020 COMPARISON: Yesterday FINDINGS: Support devices: Stable support device positioning. Heart: Stable cardiomediastinal silhouette. Lungs/pleura: There is better inspiration. Bilateral airspace opacities appear stable. No pleural ef fusion or pneumothorax. Additional findings: None. IMPRESSION: Unchanged exam. Signer Name: Moe Cuellar Jr, MD Signed: 09/14/2020 8:40 AM Workstation Name: [id number]
[2020-09-14] MEDS: INSULIN GLARGINE 100 UNITS/ML SUB-Q SCH (11:04)
[2020-09-14] MEDS: HEPARIN 5,000 UNIT/1 ML VIAL SUB-Q SCH ×2 (11:04→22:02)
[2020-09-14] MEDS: FAMOTIDINE 20 MG/2 ML INJ IV SCH ×2 (11:04→22:03)
[2020-09-14] MEDS: dexAMETHasone 4 MG/ML VIAL IV SCH (11:04)
[2020-09-14] MEDS: ASCORBIC ACID 500 MG TAB PO SCH ×2 (11:05→22:03)
[2020-09-14] MEDS: CHOLECALCIFEROL (VIT D3) 1000 UNIT (25 mcg) TAB PO SCH (11:05)
[2020-09-14] MEDS: ZINC SULFATE 220 MG CAP PO SCH ×2 (11:05→22:03)
--- NOTE | 2020-09-14 11:23 | Progress Note ---
Assessment and Plan Cultures: SARS CoV2 PCR: Positive 09/08/2020 blood culture: No growth 09/08/2020 urine culture: Usual skin stefania A/P: 75-year-old female with hypertension, diabetes, obesity hypoventilation syndrome was admitted to the hospital with cough, shortness of breath, not feeling well: #Shock: no clear evidence of bacterial infection. Completed empiric CAP coverage. Probably related to severe/critical COVID. #Bilateral pneumonia: Secondary to COVID-19, critical disease. #Acute hypoxic respiratory failure: On the vent with very high requirements. #Morbid obesity #Hypertension, diabetes #Leukopenia, mild thrombocytopenia, transaminitis: Likely related to COVID-19 #NICOLASA: monitor creatinine. Recs: -Continue remdesivir x 5 days -IV Tocilizumab administered 09/12/2020 -continue steroids -completed abx -prophylactic anticoagulation based on d-dimer per hospital protocol -Recheck CRP, procalcitonin, d-dimer in a.m. Rory Ahuja MD, FACP [facility] O: [phone] F: [phone] Subjective Date of service: 09/14/20 Principal diagnosis: Ac hypoxemic resp failure; ARDS; COVID-19 infxn; PNA; DM II; Obesity Interval history: Low-grade fever. Remains on the vent. Creatinine up to 1.6. On pressors Objective - Exam Narrative Exam: Physical Exam (reviewed in chart to minimize risk of transmission) Constitutional: deferred Head, Ears, Nose: deferred Eyes: deferred Neck: deferred Oral: deferred Cardiovascular: deferred Respiratory: deferred GI: deferred Musculoskeletal: deferred Skin: deferred Hem/Lymphatic: deferred Psych: deferred Neurological: deferred - Constitutional Vitals: Vital Signs Temp Pulse Resp BP Pulse Ox 98.1 F 63 25 H 166/67 100 09/14/20 07:00 09/14/20 10:00 09/14/20 10:00 09/14/20 07:57 09/14/20 10:00 Temperature -Last 24 Hours Temperature 98.1 F Temperature 100.6 F Temperature 100.0 F Temperature 99.7 F Temperature 99.7 F - Labs CBC & Chem 7: 09/13/20 Unknown 09/13/20 Unknown Labs: Abnormal lab results 09/13/20 09/13/20 09/13/20 Range/Units 11:53 17:13 23:46 POC Glucose 302 H 356 H 263 H (70-105) mg/dL 09/14/20 Range/Units 05:46 POC Glucose 226 H (70-105) mg/dL
[2020-09-14 11:46] LABS: Albumin 2.7 g/dL (3.9-5); C-Reactive Protein 5.4 mg/dL (0.00-1.30); Calcium 8.7 mg/dL (8.4-10.2)
[2020-09-14] MEDS ORDERED: METOPROLOL TARTRATE 5 MG/5 ML INJ IV STA (12:33)
[2020-09-14] MEDS: MIDAZOLAM 100 MG in SODIUM CHLORIDE 0.9% 80 ML IV SCH (12:37)
--- NOTE | 2020-09-14 13:49 | Progress Note ---
Assessment and Plan Assessment and plan: 72-year-old female with HTN, DM, OSH, OA admitted for COVID-19 pneumonia, sepsis, acute hypoxic respiratory failure, NICOLASA Neuro: Acute metabolic encephalopathy -Sedated with prop and fentanyl -RASS goal neg 4 -PERRL -family updated on plan of care -case management following Cardio: SB, H/O HTN, hypotension due to covid pna/sepsis -Atropine at bedside -Hold home Coreg-- no rate lowering meds -SR-ST HR 60-70 -trend QT -NE PRN for hypotension -Hydralazine IV as needed for SBP greater than 160 -dopamine for bradycardia -normal biV function on echo -CVP- trend daily Respiratory: Acute hypoxic respiratory failure due to covid pna Acute hypoxemic respiratory failure Acute respiratory distress syndrome COVID-19 infection Bilateral pneumonia -Intubated 09/10 -Presented with pneumonia -CCM consulted, appreciate recommendations -VAP bundle -Wean mechanical ventilation as tolerated -Current vent settings: CMV, tidal volume 450, rate 825, PEEP of 18, 100% FiO2 -see RT notes for titration/changes -Serial ABGs -Serial CXRs -proned 16 hours overnight again to prone position today at approx 1400 -continue duonebs GI: Morbid obesity, TF, cholelithiasis, transaminitis -Nutrition consulted, appreciate recommendations -tolerating TF -PPI -BR: Colace -BM 09/10 -Trend LFTs and tbili : Acute kidney injury 2/2 VMN -Presented with a BUN/creatinine of 1.5/32 -Avoid nephrotoxic medication -Consider renal consult if needed -Strict intake and output -bladder scanning with intermittent straight caths -Daily weights -Trend BMP -renal consulted for uptrending Cr urine electrolytes and renal U/S ordered -AM labs ordered Heme: Leukopenia, thrombocytopenia, elevated D-dimer -Leukopenia likely secondary to COVID-19 infection -Thrombocytopenia likely secondary to sepsis -09/08 CTA chest shows no evidence of pulmonary embolism, multifocal airspace opacities with nodular densities and groundglass opacities in bilateral lungs, cholelithiasis, cholelithiasis -doppler BLE neg for DVT -no bleeding on exam -[facility] VTE prophylaxis ID: Sepsis, COVID-19 pneumonia Acute hypoxemic respiratory failure Acute respiratory distress syndrome COVID-19 infection Bilateral pneumonia Elevated serum inflammatory markers to include D-dimer, ferritin and LDH -COVID-19 PCR +09/09 -Infectious disease consulted, appreciate recommendations -Remdesivir x5 days -IV tocilizumab -Dexamethasone 09/10 through 09/19 -Remdesivir 09/11 through 09/14 -Azithromycin 09/09 through 09/13, Rocephin 09/09 through 09/13 -Contact/droplet precaution -Trend COVID-19 inflammatory markers -azithromycin and rocpehin completed -on zinc and Vit C Endo: h/o DM; hyperglycemia; morbid obese -Accu-Cheks every 6hours -Avoid hypoglycemia -SSI, long-acting insulin -lantus scheduled Disposition: ICU Full code Lines: A-line, IJ TLC The high probability of a clinically significant, sudden or life threatening deterioration of the [multi] system(s) required my full and direct attention, intervention and personal management. The aggregate critical care time was [6 0] minutes. This time is in addition to time spent performing reported procedures but includes the following: [x] Data Review and interpretation [x] Patient assessment and monitoring of vital signs [x] Documentation [x] Medication orders and management History Interval history: This 72-year-old female with HTN, DM, OHS, OA presents the emergency department on 09/08 with generalized weakness, loss of appetite, dry cough, loss of sense of smell, smell and taste, shortness of breath, malaise, decreased exercise tolerance over the past 3 days with progressive worsening symptoms. Patient's daughter provided additional history and stated patient's blood glucose level was being checked and the patient "threw back her head and passed out". EMS was notified and upon arrival patient was found to be in distress transported to [facility]. Patient was evaluated emergency department and had a pulse ox on room a ir of 82% consistent with acute hypoxic respiratory failure, CXR showed bilateral pneumonia, NICOLASA with ATN SSO to COVID-19 infection. Patient was admitted to the medical floor initiated COVID-19 protocol as well as pneumonia protocol. 09/10: Patient was intubated by ED physician and transferred to the ICU. 09/11: Infectious disease was consulted today, patient was placed on vasopressors due to hypotension despite receiving 1 L IV fluid, Lantus started, bilateral lower extremity Doppler ultrasound ordered, A-line and CVL placed. Late in the evening patient was exhibiting sinus bradycardia, EKG ordered along with stat CMP which showed NICOLASA. Stat ABG ordered which showed elevated PaO2 at 146 o therwise unremarkable on 100% FiO2. 09/12 bradycardia overnight requiring atropine x 1 and dopamine drip 09/13 tamia overnight 09/14 PRONED 16 H over the last day Disposition Plan: TBD Total Time Spent with Patient (Minutes): 60 History Interval history: tamia overnight Hospitalist Physical - Constitutional Vitals: Temp Pulse Resp BP Pulse Ox 98.9 F 61 25 H 130/59 100 09/14/20 11:00 09/14/20 12:10 09/14/20 12:10 09/14/20 11:53 09/14/20 12:10 General appearance: Present: no acute distress, well-nourished - EENT Eyes: Present: PERRL ENT: clear oral mucosa - Neck Neck: Present: supple - Respiratory Respiratory effort: normal - Cardiovascular Rhythm: regular Heart Sounds: Present: S1 & S2 Peripheral Pulses: within normal limits - Abdominal General gastrointestinal: soft - Integumentary Integumentary: Present: clear, warm, dry - Psychiatric Psychiatric: other - Neurologic Neurologic: other - Allied Health Allied health notes reviewed: nursing, social work, case management HEART Score - HEART Score Troponin: Troponin T < 0.010 ng/mL (0.00-0.029) 09/09/20 00:39 Results - Labs CBC & Chem 7: 09/13/20 Unknown 09/14/20 10:53 Labs: Laboratory Last Values WBC 9.6 K/mm3 (4.5-11.0) 09/13/20 Unknown RBC 4.34 M/mm3 (3.65-5.03) 09/13/20 Unknown Hgb 13.8 gm/dl (10.1-14.3) 09/13/20 Unknown Hct 41.4 % (30.3-42.9) 09/13/20 Unknown MCV 95 fl (79-97) 09/13/20 Unknown MCH 32 pg (28-32) 09/13/20 Unknown MCHC 33 % (30-34) 09/13/20 Unknown RDW 14.3 % (13.2-15.2) 09/13/20 Unknown Plt Count 135 K/mm3 (140-440) L 09/13/20 Unknown Lymph % (Auto) 9.5 % (13.4-35.0) L 09/09/20 08:28 [place] % (Auto) 4.7 % (0.0-7.3) 09/09/20 08:28 Eos % (Auto) 0.0 % (0.0-4.3) 09/09/20 08:28 Baso % (Auto) 0.6 % (0.0-1.8) 09/09/20 08:28 Lymph # (Auto) 0.3 K/mm3 (1.2-5.4) L 09/09/20 08:28 [place] # (Auto) 0.2 K/mm3 (0.0-0.8) 09/09/20 08:28 Eos # (Auto) 0.0 K/mm3 (0.0-0.4) 09/09/20 08:28 Baso # (Auto) 0.0 K/mm3 (0.0-0.1) 09/09/20 08:28 Add Manual Diff Complete 09/12/20 17:17 Total Counted 100 09/12/20 17:17 Seg Neutrophils % Technology Applications Teacher 09/12/20 17:17 Seg Neuts % (Manual) 96.0 % (40.0-70.0) H 09/12/20 17:17 Lymphocytes % (Manual) 1.0 % (13.4-35.0) L 09/12/20 17:17 Monocytes % (Manual) 3.0 % (0.0-7.3) 09/12/20 17:17 Nucleated RBC % Not Reportable 09/12/20 17:17 Seg Neutrophils # 2.9 K/mm3 (1.8-7.7) 09/09/20 08:28 Seg Neutrophils # Man 9.8 K/mm3 (1.8-7.7) H 09/12/20 17:17 Band Neutrophils # 0.0 K/mm3 09/12/20 17:17 Lymphocytes # (Manual) 0.1 K/mm3 (1.2-5.4) L 09/12/20 17:17 Abs React Lymphs (Man) 0.0 K/mm3 09/12/20 17:17 Monocytes # (Manual) 0.3 K/mm3 (0.0-0.8) 09/12/20 17:17 Eosinophils # (Manual) 0.0 K/mm3 (0.0-0.4) 09/12/20 17:17 Basophils # (Manual) 0.0 K/mm3 (0.0-0.1) 09/12/20 17:17 Metamyelocytes # 0.0 K/mm3 09/12/20 17:17 Myelocytes # 0.0 K/mm3 09/12/20 17:17 Promyelocytes # 0.0 K/mm3 09/12/20 17:17 Blast Cells # 0.0 K/mm3 09/12/20 17:17 WBC Morphology Not Reportable 09/12/20 17:17 Hypersegmented Neuts Not Reportable 09/12/20 17:17 Hyposegmented Neuts Not Reportable 09/12/20 17:17 Hypogranular Neuts Not Reportable 09/12/20 17:17 Smudge Cells Not Reportable 09/12/20 17:17 Toxic Granulation Not Reportable 09/12/20 17:17 Toxic Vacuolation Not Reportable 09/12/20 17:17 Dohle Bodies Not Reportable 09/12/20 17:17 Pelger-Huet Anomaly Not Reportable 09/12/20 17:17 Katrin Rods Not Reportable 09/12/20 17:17 Platelet Estimate Consistent w auto 09/12/20 17:17 Clumped Platelets Not Reportable 09/12/20 17:17 Plt Clumps, EDTA Not Reportable 09/12/20 17:17 Large Platelets Not Reportable 09/12/20 17:17 Giant Platelets Not Reportable 09/12/20 17:17 Platelet Satelliting Not Reportable 09/12/20 17:17 Plt Morphology Comment Not Reportable 09/12/20 17:17 RBC Morphology Normal 09/12/20 17:17 Dimorphic RBCs Not Reportable 09/12/20 17:17 Polychromasia Not Reportable 09/12/20 17:17 Hypochromasia Not Reportable 09/12/20 17:17 Poikilocytosis Not Reportable 09/12/20 17:17 Anisocytosis Not Reportable 09/12/20 17:17 Microcytosis Not Reportable 09/12/20 17:17 Macrocytosis Not Reportable 09/12/20 17:17 Spherocytes Not Reportable 09/12/20 17:17 Pappenheimer Bodies Not Reportable 09/12/20 17:17 Sickle Cells Not Reportable 09/12/20 17:17 Target Cells Not Reportable 09/12/20 17:17 Tear Drop Cells Not Reportable 09/12/20 17:17 Ovalocytes Not Reportable 09/12/20 17:17 Helmet Cells Not Reportable 09/12/20 17:17 [place] Bodies Not Reportable 09/12/20 17:17 Rosman Rings Not Reportable 09/12/20 17:17 [place] Cells Not Reportable 09/12/20 17:17 Bite Cells Not Reportable 09/12/20 17:17 Crenated Cell Not Reportable 09/12/20 17:17 Elliptocytes Not Reportable 09/12/20 17:17 Acanthocytes (Spur) Not Reportable 09/12/20 17:17 Rouleaux Not Reportable 09/12/20 17:17 Hemoglobin C Crystals Not Reportable 09/12/20 17:17 Schistocytes Not Reportable 09/12/20 17:17 Malaria parasites Not Reportable 09/12/20 17:17 Hansel Bodies Not Reportable 09/12/20 17:17 Hem Pathologist Commnt No 09/12/20 17:17 PT 14.2 Sec. (12.2-14.9) 09/08/20 17:37 INR 1.04 (0.87-1.13) 09/08/20 17:37 APTT 29.2 Sec. (24.2-36.6) 09/08/20 17:37 D-Dimer > 16974 ng/mlDDU (0-234) H 09/14/20 10:53 ABG pH 7.275 (7.320-7.450) L 09/13/20 04:22 POC ABG pCO2 54.7 mmHg (32.0-48.0) H 09/13/20 04:22 POC ABG pO2 47.1 mmHg (83-108) L 09/13/20 04:22 POC ABG HCO3 24.8 09/13/20 04:22 ABG O2 Saturation 80.0 (0-100) 09/13/20 04:22 POC ABG Base Excess -2.8 09/13/20 04:22 ABG Hemoglobin 14.6 (12.0-17.5) 09/13/20 04:22 ABG Oxyhemoglobin 79.4 (94-98) L 09/13/20 04:22 ABG Methemoglobin 0.3 (0.0-1.5) 09/13/20 04:22 ABG Sodium 141.4 mmol/L (136.0-145.0) 09/13/20 04:22 ABG Potassium 4.5 mmol/L (3.40-4.50) 09/13/20 04:22 ABG Chloride 106.0 mmol/L (98-107) 09/13/20 04:22 ABG Glucose 261 mg/dL (65-95) H 09/13/20 04:22 Carboxyhemoglobin 0.5 (0.5-1.5) 09/13/20 04:22 FiO2 % 80.0 09/13/20 04:22 Sodium 143 mmol/L (137-145) 09/14/20 10:53 Potassium 5.0 mmol/L (3.6-5.0) 09/14/20 10:53 Chloride 106.5 mmol/L (98-107) 09/14/20 10:53 Carbon Dioxide 26 mmol/L (22-30) 09/14/20 10:53 Anion Gap 16 mmol/L 09/14/20 10:53 BUN 71 mg/dL (7-17) H 09/14/20 10:53 Creatinine 2.8 mg/dL (0.6-1.2) H D 09/14/20 10:53 Estimated GFR 20 ml/min 09/14/20 10:53 BUN/Creatinine Ratio 25 % 09/14/20 10:53 Glucose 167 mg/dL (65-100) H 09/14/20 10:53 POC Glucose 166 mg/dL (70-105) H 09/14/20 11:33 Osmolality 329 Mosm/kg 09/12/20 17:17 Lactic Acid 1.90 mmol/L (0.7-2.0) 09/12/20 17:17 Calcium 8.7 mg/dL (8.4-10.2) 09/14/20 10:53 Phosphorus 4.90 mg/dL (2.5-4.5) H D 09/14/20 10:53 Magnesium 2.40 mg/dL (1.7-2.3) H 09/14/20 10:53 Ferritin 1434.0 ng/mL (10.0-200.0) H 09/11/20 Unknown Total Bilirubin 0.20 mg/dL (0.1-1.2) 09/14/20 10:53 AST 25 units/L (5-40) 09/14/20 10:53 ALT 22 units/L (7-56) 09/14/20 10:53 Alkaline Phosphatase 83 units/L (35-129) 09/14/20 10:53 Lactate Dehydrogenase 755 units/L (91-180) H 09/11/20 05:56 Troponin T < 0.010 ng/mL (0.00-0.029) 09/09/20 00:39 C-Reactive Protein 5.40 mg/dL (0.00-1.30) H 09/14/20 10:53 NT-Pro-B Natriuret Pep 503.6 pg/mL (0-900) 09/08/20 17:37 Total Protein 5.9 g/dL (6.3-8.2) L 09/14/20 10:53 Albumin 2.7 g/dL (3.9-5) L 09/14/20 10:53 Albumin/Globulin Ratio 0.8 % 09/14/20 10:53 Lipase 47 units/L (13-60) 09/08/20 17:37 Procalcitonin 0.83 ng/mL (<0.15) 09/14/20 10:53 TSH 0.067 mlU/mL (0.270-4.200) L 09/12/20 17:17 Arterial Blood Glucose 261 mg/dL (65-95) H 09/13/20 04:22 Arterial Blood Ionized Calcium 4.9 mg/dL (4.6-5.3) 09/13/20 04:22 Urine Color Yellow (Yellow) 09/12/20 13:30 Urine Turbidity Clear (Clear) 09/12/20 13:30 Urine pH 5.0 (5.0-7.0) 09/12/20 13:30 Ur Specific [place] 1.011 (1.003-1.030) 09/12/20 13:30 Urine Protein 100 mg/dl mg/dL (Negative) 09/12/20 13:30 Urine Glucose (UA) 50 mg/dL (Negative) 09/12/20 13:30 Urine Ketones Neg mg/dL (Negative) 09/12/20 13:30 Urine Blood Lg (Negative) 09/12/20 13:30 Urine Nitrite Neg (Negative) 09/12/20 13:30 Urine Bilirubin Neg (Negative) 09/12/20 13:30 Urine Urobilinogen < 2.0 mg/dL (<2.0) 09/12/20 13:30 Ur Leukocyte Esterase Neg (Negative) 09/12/20 13:30 Urine WBC (Auto) 2.0 /HPF (0.0-6.0) 09/12/20 13:30 Urine RBC (Auto) 47.0 /HPF (0.0-6.0) 09/12/20 13:30 U Epithel Cells (Auto) 2.0 /HPF (0-13.0) 09/08/20 22:24 Urine Bacteria (Auto) 1+ /HPF (Negative) 09/12/20 13:30 Urine Mucus Few /HPF 09/12/20 13:30 Urine Osmolality 340 Mosm/kg 09/12/20 13:30 Urine Creatinine 43.2 mg/dL (0.1-20.0) H 09/12/20 13:30 Urine Sodium 58 mmol/L 09/12/20 13:30 Urine Urea Nitrogen 479 09/12/20 13:30 Urine Opiates Screen Presumptive negative 09/08/20 22:24 Urine Methadone Screen Presumptive negative 09/08/20 22:24 Ur Barbiturates Screen Presumptive negative 09/08/20 22:24 Ur Phencyclidine Scrn Presumptive negative 09/08/20 22:24 Ur Amphetamines Screen Presumptive negative 09/08/20 22:24 U Benzodiazepines Scrn Presumptive negative 09/08/20 22:24 Urine Cocaine Screen Presumptive negative 09/08/20 22:24 U Marijuana (THC) Screen Presumptive negative 09/08/20 22:24 Drugs of Abuse Note Disclamer 09/08/20 22:24 Coronavirus (PCR) Positive (Negative) A 09/09/20 09:00 Microbiology: Microbiology 09/08/20 17:32 Peripheral/Venous Blood Culture - Final NO GROWTH AFTER 5 DAYS 09/08/20 17:32 Peripheral/Venous Blood Culture - Final NO GROWTH AFTER 5 DAYS Begum/IV: Voiding Method Indwelling Catheter Active Medications - Current Medications Current Medications: Generic Name Dose Route Start Last Admin Trade Name Freq PRN Reason Stop Dose Admin Acetaminophen 650 mg 09/08/20 20:23 Acetaminophen 325 Mg Tab PO Q4H PRN Pain MILD(1-3)/Fever >100.5/CORTEZ Albuterol 2.5 mg 09/08/20 20:23 Albuterol 2.5 Mg/3 Ml Nebu IH Q4HRT PRN Shortness Of Breath Albuterol/Ipratropium 1 ampul 09/13/20 12:30 09/14/20 08:03 Ipratropium/Albuterol Sulfate 3 Ml Ampul.Neb IH Not Given BID ISIAH Lipase/Protease/Amylase 1 each 09/11/20 11:45 Lipase 10,500/Protease 25,000/Amylase 43,750 (Units) Dr Issa FEEDTUBE PRN PRN For Clogged Feeding Tube Ascorbic Acid 500 mg 09/08/20 22:00 09/14/20 11:05 Ascorbic Acid 500 Mg Tab PO 500 mg BID ISIAH Administration Cholecalciferol 1,000 unit 09/09/20 10:00 09/14/20 11:05 Cholecalciferol (Vit D3) 1000 Unit (25 Mcg) Tab PO 1,000 unit QDAY ISIAH Administration Dexamethasone 8 mg 09/10/20 17:00 09/14/20 11:04 Dexamethasone 4 Mg/Ml Vial IV 09/19/20 10:01 8 mg DAILY ISIAH Administration Famotidine 10 mg 09/14/20 22:00 Famotidine 20 Mg/2 Ml Inj IV BID ISIAH Fentanyl 50 mcg 09/13/20 12:12 Fentanyl 100 Mcg/2 Ml Inj IV Q10MIN PRN ANALGESIA Guaifenesin 10 ml 09/09/20 16:01 09/10/20 05:14 Guaifenesin Dm 200/20 Mg Oral Liqd 10 Ml PO 10 ml Q4H PRN Administration Cough Heparin Sodium (Porcine) 5,000 unit 09/08/20 22:00 09/14/20 11:04 Heparin 5,000 Unit/1 Ml Vial SUB-Q 5,000 unit Q12HR ISIAH Administration Hydralazine HCl 10 mg 09/11/20 21:33 Hydralazine 20 Mg/1 Ml Inj IV Q4H PRN Hypertension REMDESIVIR 100 mg/ Sodium 250 mls @ 500 mls/hr 09/13/20 21:00 09/14/20 08:06 Chloride IV 09/16/20 21:29 Infused Q24HR@2100 ISIAH Infusion Fentanyl Citrate 2,000 mcg in 100 mls @ 7.45 mls/hr 09/10/20 23:00 09/14/20 11:03 Fentanyl Drip Premix IV 4 mcg/kg/hr TITR ISIAH 29.8 mls/hr Administration Protocol 1 MCG/KG/HR Norepinephrine 4 mg in 250 mls @ 7.5 mls/hr 09/11/20 17:00 09/13/20 23:32 Levophed Drip 4 Mg/Ns 250 Ml IV 4 mcg/min TITR ISIAH 15 mls/hr Administration Protocol 2 MCG/MIN Sodium Chloride 1,000 mls @ 10 mls/hr 09/11/20 20:45 Nacl 0.9% 1000 Ml IV DIRECT ISIAH Vasopressin 20 unit/ Sodium 101 mls @ 9.09 mls/hr 09/11/20 22:00 Chloride IV TITR ISIAH Protocol 0.03 UNITS/MIN Dopamine HCl/Dextrose 800 mg in 250 mls @ 5.588 mls/hr 09/11/20 23:00 09/13/20 19:15 Intropin Drip 800 Mg/D5w 250 Ml IV 2 mcg/kg/min TITR ISIAH 5.588 mls/hr Titration Protocol 2 MCG/KG/MIN Midazolam HCl 100 mg/ Sodium 100 mls @ 1 mls/hr 09/12/20 17:30 09/14/20 12:37 Chloride IV 5 mg/hr TITR ISIAH 5 mls/hr Administration Protocol 1 MG/HR Propofol 1,000 mg in 100 mls @ 4.47 mls/hr 09/13/20 13:00 09/14/20 04:34 Diprivan 10 Mg/Ml IV 5 mcg/kg/min TITR ISIAH 4.47 mls/hr Administration Protocol 5 MCG/KG/MIN Insulin Glargine 15 units 09/12/20 10:00 09/14/20 11:04 Insulin Glargine 100 Units/Ml SUB-Q 15 units DAILY [facility] Administration Insulin Human Lispro 0 unit 09/11/20 12:00 09/14/20 12:37 Insulin Lispro 100 Unit/Ml SUB-Q 3 unit Q6HR [facility] Administration Protocol Midazolam HCl 2 mg 09/12/20 17:30 09/13/20 12:05 Midazolam 2 Mg/2 Ml Inj IV 2 mg Q10MIN PRN Administration Sedation Simple Syrup 15 ml 09/11/20 11:45 Simple Syrup 15 Ml FEEDTUBE PRN PRN Hypoglycemia Simple Syrup 30 ml 09/11/20 11:45 Simple Syrup 15 Ml FEEDTUBE PRN PRN Hypoglycemia Sodium Bicarbonate 325 mg 09/11/20 11:45 Sodium Bicarbonate 325 Mg Tab FEEDTUBE PRN PRN For Clogged Feeding Tube Sodium Chloride 10 ml 09/08/20 22:00 09/14/20 11:05 Sodium Chloride 0.9% 10 Ml Flush Syringe IV 10 ml BID ISIAH Administration Sodium Chloride 10 ml 09/08/20 20:23 Sodium Chloride 0.9% 10 Ml Flush Syringe IV PRN PRN LINE FLUSH Sodium Chloride 50 ml 09/12/20 14:00 09/13/20 22:20 Sodium Chloride 0.9% 50 Ml Ivpb IV 09/16/20 21:01 50 ml Q24HR@2100 ISIAH Administration Zinc Sulfate 220 mg 09/08/20 22:00 09/14/20 11:05 Zinc Sulfate 220 Mg Cap PO 220 mg BID ISIAH Administration Nutrition/Malnutrition Assess - Dietary Evaluation Nutrition/Malnutrition Findings: Nutrition Notes Start: 09/11/20 11:37 Freq: Status: Active Protocol: Document 09/13/20 12:16 (Rec: 09/13/20 12:21 [id number]) Nutrition Notes Initial or Follow up Reassessment Current Diagnosis Acute Kidney Injury, Respiratory Failure Other Pertinent Diagnosis pneu, COVID Current Diet Glucerna 1.2 at 65 ml/hr Labs/Tests BUN 54 Cr 1.6 BG 255 Pertinent Medications Levophed Decadron Height 5 ft 8 in Weight 149 kg [place] Body Weight (kg) 63.63 BMI 49.9 Weight Status Morbidly Obese Subjective/Other Information Pt will start proning. Will adjust TF. Pt tolerating at 45ml/hr. Percent of energy/protein needs met: 67%/41% Burn Absent Trauma Absent Current % PO Negligible Minimum of two criteria No physical signs of malnutrition #1 Nutrition Diagnosis Inadequate oral intake Diagnosis Progress(for reassessment Continues documentation) Is patient on ventilator? Yes Is Patient Ambulatory and/or Out of Bed No REE-([place]-confined to bed) 2457.420 Kcal/Kg value to use for calculation 13 Approximate Energy Requirements Using 1937 kcal/Kg Calculation Used for Recommendations Kcal/kg Additional Notes Protein: up to 2.5g/kg IBW (up to 159g) Fluid: 1 ml/kcal or per MD Nutrition Intervention Change Diet Order: Continue Nutrition Support: 12 Hr Prone: For 12h proned - Glucerna 1.2 at 20 ml/hr Flush 50 ml q4h For 12 h supine - Glucerna 1.2 at 85 ml/hr (or as tolerated) . Flush 150 q4h When finished proning: Glucerna 1.2 at 65 ml/hr Flush 100 ml q4h or per MD Kcal 1,512 Protein (gm) 76 Fluid (mL) 1,014 Goal #1 Meet at least 75% of protein and energy needs via TF Anticipated Discharge Needs: Unable to determine at this time Follow-Up By: 09/15/20 Additional Comments FU for TF tolerance and proning - Attestation Statement I have reviewed and agreed w/ Malnutrition eval & tx plan: Yes
--- NOTE | 2020-09-14 13:58 | Ultrasound Report ---
ULTRASOUND RENAL INDICATION / CLINICAL INFORMATION: Julio. COMPARISON: None available. FINDINGS: RIGHT KIDNEY: Length = 10.6 cm. - Echogenicity: Increased - Cortical Thickness: Normal. - Hydronephrosis: None. - Cyst / Mass: There is a 2.5 cm cyst in the mid right kidney - Stones: None seen. LEFT KIDNEY: Length = 10.4 cm. - Echogenicity: Increased - Cortical Thickness: Normal. - Hydronephrosis: None. - Cyst / Mass: None. - Stones: None seen. URINARY BLADDER: No significant abnormality. FREE FLUID: None. ADDITIONAL FINDINGS: None. IMPRESSION: 1. Kidneys are increased in echogenicity which can be seen with medical renal disease. There is no hy dronephrosis. 2. There is a 2.5 cm cyst in the mid right kidney. Signer Name: Barry Maki MD Signed: 09/14/2020 1:53 PM Workstation Name: [id number]
--- NOTE | 2020-09-14 14:22 | Progress Note ---
Assessment and Plan Acute hypoxemic respiratory failure Acute respiratory distress syndrome COVID-19 infection Bilateral pneumonia Diabetes Hypertension Obesity Leukopenia Elevated serum inflammatory markers to include D-dimer, ferritin and LDH - continue daily proning - nephrology consult placed - repeat CBC in am re: thrombocytopenia - continue to wean vasopressors for target MAP > 65 mmHg - continue Propofol for better sedation while proned - continue chacon catheter for strict I's & O's - continue care as below otherwise; - continue Daily SAT and SBT assessment as tolerated - continue to wean supplemental oxygen for target O2 sat's > 90% acutely - VAP bundle addressed - continue lung protective strategies - continue bronchodilators with pulmonary hygiene per RT - wean per pulmonary driven protocols otherwise - avoid nephrotoxins, renally dose all medications - continue accuchecks with glycemic control per SSI (While critically ill target blood glucose of 140-180 mg/dL; avoid hypoglycemia) - sedation prn for target RASS 0 to -1 - continue to avoid benzodiazepine's, reduce the possibility of delirium - complete AB's per ID rec's - prn analgesia per CPOT score - Maintenance of sleep-wake cycle, avoid delirium - continue enteral nutritional support at goal rate as tolerated - G.I. & VTE prophylaxis - PT/OT/ROM exercises - continue mobility protocols for pressure ulcer prophylaxis - Monitor hemodynamics closely - continue other care per attending / other consultants - discharge planning ongoing concurrently COVID SPECIFIC INTERVENTIONS - Remdesivir as per ID/Pulmonary developed protocols (ordered) - to receive Actemra - continue systemic steroids for severe COVID-19 infection empirically - follow repeat COVID tests results - zinc and vitamin C supplementation - Monitor inflammatory markers per facility protocol - ferritin, Ddimer, CRP - therapeutic anticoagulation per system Protocol based on d-dimer and clinical considerations - Continue contact and airborne isolation .... Re-evaluate in am & prn CONDITION: CRITICAL PROGNOSIS: GUARDED CODE STATUS: FULL CODE The high probability of a clinically significant, sudden or life-threatening deterioration of the [respiratory, cardiovascular & neurologic] system(s) required my full and direct attention, intervention and personal management. The aggregate critical care time was [33] minutes without overlap. Time includes spent on; [x] Data Review and interpretation [x] Patient assessment and monitoring of vital signs [x] Documentation [x] Medication orders and management Subjective Date of service: 09/14/20 Principal diagnosis: Ac hypoxemic resp failure; ARDS; COVID-19 infxn; PNA; DM II; Obesity Interval history: Patient is seen today for: Ac hypoxemic resp failure; ARDS; COVID-19 infxn; PNA; DM II; Obesity Seen and examined at bedside; 24hour events reviewed; nursing and respiratory care staff consulted; no adverse overnight events reported to me; resting in bed; remains on MVS; still with ARDS; also with worsening azotemia; no emesis or overt aspiration Objective Vital Signs - 12hr 09/14/20 09/14/20 09/14/20 03:10 03:16 03:20 Temperature Pulse Rate 72 71 71 Pulse Rate [ Left Radial] Respiratory 25 H 25 H 25 H Rate Blood Pressure 139/72 139/72 139/72 O2 Sat by Pulse 100 100 100 Oximetry 09/14/20 09/14/20 09/14/20 03:26 03:30 03:36 Temperature Pulse Rate 69 69 66 Pulse Rate [ Left Radial] Respiratory 25 H 25 H 25 H Rate Blood Pressure 139/72 139/72 139/72 O2 Sat by Pulse 100 100 100 Oximetry 09/14/20 09/14/20 09/14/20 03:40 03:45 03:46 Temperature Pulse Rate 67 68 67 Pulse Rate [ Left Radial] Respiratory 25 H 25 H Rate Blood Pressure 139/72 112/59 139/72 O2 Sat by Pulse 100 100 100 Oximetry 09/14/20 09/14/20 09/14/20 03:50 03:56 04:00 Temperature 100.6 F H Pulse Rate 68 67 65 Pulse Rate [ Left Radial] Respiratory 25 H 25 H 25 H Rate Blood Pressure 139/72 139/72 139/72 O2 Sat by Pulse 100 100 100 Oximetry 09/14/20 09/14/20 09/14/20 04:06 04:10 04:16 Temperature Pulse Rate 64 65 66 Pulse Rate [ Left Radial] Respiratory 25 H 25 H 25 H Rate Blood Pressure 139/72 139/72 139/72 O2 Sat by Pulse 100 100 100 Oximetry 09/14/20 09/14/20 09/14/20 04:20 04:26 04:30 Temperature Pulse Rate 63 66 64 Pulse Rate [ Left Radial] Respiratory 25 H 25 H 25 H Rate Blood Pressure 139/72 139/72 139/72 O2 Sat by Pulse 100 100 100 Oximetry 09/14/20 09/14/20 09/14/20 04:36 04:40 04:46 Temperature Pulse Rate 65 65 63 Pulse Rate [ Left Radial] Respiratory 25 H 25 H 25 H Rate Blood Pressure 139/72 139/72 139/72 O2 Sat by Pulse 100 100 100 Oximetry 09/14/20 09/14/20 09/14/20 04:50 04:56 05:00 Temperature Pulse Rate 62 66 61 Pulse Rate [ Left Radial] Respiratory 25 H 25 H 25 H Rate Blood Pressure 139/72 139/72 139/72 O2 Sat by Pulse 100 100 100 Oximetry 09/14/20 09/14/20 09/14/20 05:10 05:16 05:20 Temperature Pulse Rate 71 81 71 Pulse Rate [ Left Radial] Respiratory 25 H 26 H 12 Rate Blood Pressure 139/72 139/72 139/72 O2 Sat by Pulse 97 93 Oximetry 09/14/20 09/14/20 09/14/20 05:26 05:30 05:36 Temperature Pulse Rate 69 66 62 Pulse Rate [ Left Radial] Respiratory 25 H 26 H 24 Rate Blood Pressure 139/72 139/72 139/72 O2 Sat by Pulse 99 100 100 Oximetry 09/14/20 09/14/20 09/14/20 05:40 05:46 05:50 Temperature Pulse Rate 60 59 L 59 L Pulse Rate [ Left Radial] Respiratory 24 25 H 25 H Rate Blood Pressure 139/72 139/72 139/72 O2 Sat by Pulse 100 100 100 Oximetry 09/14/20 09/14/20 09/14/20 05:56 06:00 06:06 Temperature Pulse Rate 59 L 58 L 57 L Pulse Rate [ Left Radial] Respiratory 25 H 25 H 24 Rate Blood Pressure 139/72 139/72 139/72 O2 Sat by Pulse 100 100 100 Oximetry 09/14/20 09/14/20 09/14/20 06:10 06:16 06:20 Temperature Pulse Rate 57 L 58 L 57 L Pulse Rate [ Left Radial] Respiratory 25 H 27 H 24 Rate Blood Pressure 139/72 139/72 139/72 O2 Sat by Pulse 100 100 100 Oximetry 09/14/20 09/14/20 09/14/20 06:26 06:30 06:36 Temperature Pulse Rate 58 L 57 L 58 L Pulse Rate [ Left Radial] Respiratory 24 23 23 Rate Blood Pressure 139/72 139/72 139/72 O2 Sat by Pulse 100 100 100 Oximetry 09/14/20 09/14/20 09/14/20 06:40 06:46 06:50 Temperature Pulse Rate 58 L 57 L 56 L Pulse Rate [ Left Radial] Respiratory 25 H 23 23 Rate Blood Pressure 139/72 139/72 139/72 O2 Sat by Pulse 100 100 100 Oximetry 09/14/20 09/14/20 09/14/20 06:56 07:00 07:06 Temperature 98.1 F Pulse Rate 55 L 52 L 55 L Pulse Rate [ Left Radial] Respiratory 25 H 25 H 25 H Rate Blood Pressure 139/72 139/72 O2 Sat by Pulse 100 100 100 Oximetry 09/14/20 09/14/20 09/14/20 07:10 07:16 07:20 Temperature Pulse Rate 56 L 58 L 54 L Pulse Rate [ Left Radial] Respiratory 25 H 25 H 25 H Rate Blood Pressure O2 Sat by Pulse 100 100 100 Oximetry 09/14/20 09/14/20 09/14/20 07:26 07:30 07:36 Temperature Pulse Rate 56 L 64 65 Pulse Rate [ Left Radial] Respiratory 25 H 25 H 25 H Rate Blood Pressure O2 Sat by Pulse 100 100 100 Oximetry 09/14/20 09/14/20 09/14/20 07:40 07:46 07:50 Temperature Pulse Rate 61 59 L 58 L Pulse Rate [ Left Radial] Respiratory 25 H 25 H 25 H Rate Blood Pressure O2 Sat by Pulse 100 100 100 Oximetry 09/14/20 09/14/20 09/14/20 07:56 07:57 08:00 Temperature Pulse Rate 59 L 59 L 59 L Pulse Rate [ Left Radial] Respiratory 25 H 25 H Rate Blood Pressure 166/67 O2 Sat by Pulse 100 100 100 Oximetry 09/14/20 09/14/20 09/14/20 08:06 08:10 08:16 Temperature Pulse Rate 62 62 64 Pulse Rate [ Left Radial] Respiratory 25 H 25 H 25 H Rate Blood Pressure O2 Sat by Pulse 100 100 100 Oximetry 09/14/20 09/14/20 09/14/20 08:20 08:26 08:30 Temperature Pulse Rate 64 63 63 Pulse Rate [ Left Radial] Respiratory 25 H 25 H 25 H Rate Blood Pressure O2 Sat by Pulse 100 100 100 Oximetry 09/14/20 09/14/20 09/14/20 08:36 08:40 08:46 Temperature Pulse Rate 63 65 64 Pulse Rate [ Left Radial] Respiratory 25 H 25 H 25 H Rate Blood Pressure O2 Sat by Pulse 100 100 100 Oximetry 09/14/20 09/14/20 09/14/20 08:50 08:56 09:00 Temperature Pulse Rate 67 73 58 L Pulse Rate [ 62 Left Radial] Respiratory 25 H 25 H 25 H Rate Blood Pressure O2 Sat by Pulse 100 100 100 Oximetry 09/14/20 09/14/20 09/14/20 09:06 09:10 09:16 Temperature Pulse Rate 65 66 62 Pulse Rate [ Left Radial] Respiratory 25 H 25 H 25 H Rate Blood Pressure O2 Sat by Pulse 100 100 100 Oximetry 09/14/20 09/14/20 09/14/20 09:20 09:26 09:30 Temperature Pulse Rate 62 61 62 Pulse Rate [ Left Radial] Respiratory 25 H 25 H 25 H Rate Blood Pressure O2 Sat by Pulse 100 100 100 Oximetry 09/14/20 09/14/20 09/14/20 09:36 09:40 09:46 Temperature Pulse Rate 62 62 62 Pulse Rate [ Left Radial] Respiratory 25 H 25 H 25 H Rate Blood Pressure O2 Sat by Pulse 100 100 100 Oximetry 09/14/20 09/14/20 09/14/20 09:50 09:56 10:00 Temperature Pulse Rate 62 61 63 Pulse Rate [ Left Radial] Respiratory 25 H 25 H 25 H Rate Blood Pressure O2 Sat by Pulse 100 100 100 Oximetry 09/14/20 09/14/20 09/14/20 10:06 10:10 10:16 Temperature Pulse Rate 62 61 60 Pulse Rate [ Left Radial] Respiratory 25 H 25 H 25 H Rate Blood Pressure O2 Sat by Pulse 100 100 100 Oximetry 09/14/20 09/14/20 09/14/20 10:20 10:26 10:30 Temperature Pulse Rate 60 60 60 Pulse Rate [ Left Radial] Respiratory 25 H 25 H 25 H Rate Blood Pressure O2 Sat by Pulse 100 100 100 Oximetry 09/14/20 09/14/20 09/14/20 10:36 10:40 10:46 Temperature Pulse Rate 61 63 64 Pulse Rate [ Left Radial] Respiratory 25 H 25 H 25 H Rate Blood Pressure O2 Sat by Pulse 100 100 100 Oximetry 09/14/20 09/14/20 09/14/20 10:50 10:56 11:00 Temperature 98.9 F Pulse Rate 62 61 61 Pulse Rate [ Left Radial] Respiratory 25 H 25 H 25 H Rate Blood Pressure O2 Sat by Pulse 100 100 100 Oximetry 09/14/20 09/14/20 09/14/20 11:06 11:10 11:16 Temperature Pulse Rate 63 62 61 Pulse Rate [ Left Radial] Respiratory 25 H 25 H 25 H Rate Blood Pressure O2 Sat by Pulse 100 100 100 Oximetry 09/14/20 09/14/20 09/14/20 11:20 11:26 11:30 Temperature Pulse Rate 61 61 61 Pulse Rate [ Left Radial] Respiratory 25 H 25 H 25 H Rate Blood Pressure O2 Sat by Pulse 100 100 100 Oximetry 09/14/20 09/14/20 09/14/20 11:36 11:40 11:46 Temperature Pulse Rate 61 63 61 Pulse Rate [ Left Radial] Respiratory 25 H 25 H 25 H Rate Blood Pressure O2 Sat by Pulse 100 100 100 Oximetry 09/14/20 09/14/20 09/14/20 11:50 11:53 11:56 Temperature Pulse Rate 58 L 60 60 Pulse Rate [ Left Radial] Respiratory 25 H 25 H Rate Blood Pressure 130/59 O2 Sat by Pulse 100 100 100 Oximetry 09/14/20 09/14/20 09/14/20 12:00 12:06 12:10 Temperature Pulse Rate 61 63 61 Pulse Rate [ Left Radial] Respiratory 25 H 25 H 25 H Rate Blood Pressure O2 Sat by Pulse 100 100 100 Oximetry Constitutional: appears uncomfortable, other (elderly obese female with mildly increased respiratory effort at rest on MVS) Eyes: non-icteric ENT: oropharynx moist, other (ETT 24 cm STEVEN) Neck: supple, other (large circumference) Effort: mildly labored Ascultation: Bilateral: diminished breath sounds, rhonchi Percussion: Bilateral: not dull Cardiovascular: regular rate and rhythm Gastrointestinal: normoactive bowel sounds, soft, non-tender, non-distended (protuberant) Integumentary: normal Extremities: no cyanosis, no edema, pulses normal, no ischemia or petechiae Neurologic: non-focal exam (grossly), pupils equal and round, motor strength normal and, other (sedated) Psychiatric: other (unable to assess) CBC and BMP: 09/13/20 Unknown 09/14/20 10:53 ABG, PT/INR, D-dimer: ABG ABG pH 7.225 (7.320-7.450) L 09/14/20 13:45 POC ABG pCO2 60.1 mmHg (32.0-48.0) H 09/14/20 13:45 POC ABG pO2 100.1 mmHg (83-108) 09/14/20 13:45 POC ABG HCO3 24.3 09/14/20 13:45 ABG O2 Saturation 97.6 (0-100) 09/14/20 13:45 PT/INR, D-dimer PT 14.2 Sec. (12.2-14.9) 09/08/20 17:37 INR 1.04 (0.87-1.13) 09/08/20 17:37 D-Dimer > 60236 ng/mlDDU (0-234) H 09/14/20 10:53 Abnormal lab findings: Abnormal Labs 09/08/20 09/08/20 09/08/20 17:37 17:37 17:37 WBC 4.3 L Hgb Hct Plt Count 106 L Lymph % (Auto) [place] % (Auto) 7.5 H Lymph # (Auto) 0.6 L Seg Neutrophils % 77.4 H Seg Neuts % (Manual) Lymphocytes % (Manual) Seg Neutrophils # Man Lymphocytes # (Manual) D-Dimer 741.67 H ABG pH POC ABG pCO2 POC ABG pO2 ABG Hemoglobin ABG Oxyhemoglobin ABG Sodium ABG Potassium ABG Chloride ABG Glucose Carboxyhemoglobin Sodium 129 L Chloride 91.9 L BUN 32 H Creatinine 1.5 H Glucose 200 H POC Glucose Calcium 8.1 L Phosphorus Magnesium Ferritin AST 49 H Lactate Dehydrogenase C-Reactive Protein Total Protein Albumin 2.7 L TSH Arterial Blood Glucose Arterial Blood Ionized Calcium Ur Specific [place] Urine Creatinine Coronavirus (PCR) 09/08/20 09/08/20 09/08/20 17:37 17:37 22:24 WBC Hgb Hct Plt Count Lymph % (Auto) [place] % (Auto) Lymph # (Auto) Seg Neutrophils % Seg Neuts % (Manual) Lymphocytes % (Manual) Seg Neutrophils # Man Lymphocytes # (Manual) D-Dimer ABG pH POC ABG pCO2 POC ABG pO2 ABG Hemoglobin ABG Oxyhemoglobin ABG Sodium ABG Potassium ABG Chloride ABG Glucose Carboxyhemoglobin Sodium Chloride BUN Creatinine Glucose 201 H POC Glucose Calcium Phosphorus Magnesium Ferritin 731.2 H AST Lactate Dehydrogenase 396 H C-Reactive Protein 7.00 H Total Protein Albumin TSH Arterial Blood Glucose Arterial Blood Ionized Calcium Ur Specific [place] 1.035 H Urine Creatinine Coronavirus (PCR) 09/08/20 09/09/20 09/09/20 23:35 07:30 08:28 WBC 3.4 L Hgb 15.5 H Hct 47.1 H Plt Count 95 L Lymph % (Auto) 9.5 L [place] % (Auto) Lymph # (Auto) 0.3 L Seg Neutrophils % 85.2 H Seg Neuts % (Manual) Lymphocytes % (Manual) Seg Neutrophils # Man Lymphocytes # (Manual) D-Dimer ABG pH POC ABG pCO2 POC ABG pO2 ABG Hemoglobin ABG Oxyhemoglobin ABG Sodium ABG Potassium ABG Chloride ABG Glucose Carboxyhemoglobin Sodium Chloride BUN Creatinine Glucose POC Glucose 188 H 281 H Calcium Phosphorus Magnesium Ferritin AST Lactate Dehydrogenase C-Reactive Protein Total Protein Albumin TSH Arterial Blood Glucose Arterial Blood Ionized Calcium Ur Specific [place] Urine Creatinine Coronavirus (PCR) 09/09/20 09/09/20 09/09/20 08:28 09:00 11:48 WBC Hgb Hct Plt Count Lymph % (Auto) [place] % (Auto) Lymph # (Auto) Seg Neutrophils % Seg Neuts % (Manual) Lymphocytes % (Manual) Seg Neutrophils # Man Lymphocytes # (Manual) D-Dimer ABG pH POC ABG pCO2 POC ABG pO2 ABG Hemoglobin ABG Oxyhemoglobin ABG Sodium ABG Potassium ABG Chloride ABG Glucose Carboxyhemoglobin Sodium 130 L Chloride 93.5 L BUN 31 H Creatinine 1.3 H Glucose 266 H POC Glucose 354 H Calcium Phosphorus Magnesium Ferritin AST 48 H Lactate Dehydrogenase C-Reactive Protein Total Protein Albumin 2.8 L TSH Arterial Blood Glucose Arterial Blood Ionized Calcium Ur Specific [place] Urine Creatinine Coronavirus (PCR) Positive A 09/09/20 09/09/20 09/10/20 17:21 21:15 08:00 WBC Hgb Hct Plt Count Lymph % (Auto) [place] % (Auto) Lymph # (Auto) Seg Neutrophils % Seg Neuts % (Manual) Lymphocytes % (Manual) Seg Neutrophils # Man Lymphocytes # (Manual) D-Dimer ABG pH POC ABG pCO2 POC ABG pO2 ABG Hemoglobin ABG Oxyhemoglobin ABG Sodium ABG Potassium ABG Chloride ABG Glucose Carboxyhemoglobin Sodium Chloride BUN Creatinine Glucose POC Glucose 332 H 226 H 240 H Calcium Phosphorus Magnesium Ferritin AST Lactate Dehydrogenase C-Reactive Protein Total Protein Albumin TSH Arterial Blood Glucose Arterial Blood Ionized Calcium Ur Specific [place] Urine Creatinine Coronavirus (PCR) 09/10/20 09/10/20 09/10/20 12:12 15:14 16:43 WBC Hgb Hct Plt Count Lymph % (Auto) [place] % (Auto) Lymph # (Auto) Seg Neutrophils % Seg Neuts % (Manual) Lymphocytes % (Manual) Seg Neutrophils # Man Lymphocytes # (Manual) D-Dimer ABG pH POC ABG pCO2 48.5 H POC ABG pO2 51.9 L ABG Hemoglobin ABG Oxyhemoglobin 85.1 L ABG Sodium 135.6 L ABG Potassium ABG Chloride ABG Glucose 310 H Carboxyhemoglobin Sodium 132 L Chloride 93.2 L BUN 43 H Creatinine 1.6 H Glucose 277 H POC Glucose 267 H Calcium Phosphorus Magnesium Ferritin AST 49 H Lactate Dehydrogenase C-Reactive Protein Total Protein 8.3 H Albumin 3.0 L TSH Arterial Blood Glucose 310 H Arterial Blood Ionized Calcium Ur Specific [place] Urine Creatinine Coronavirus (PCR) 09/10/20 09/10/20 09/11/20 21:34 23:33 05:56 WBC Hgb Hct Plt Count Lymph % (Auto) [place] % (Auto) Lymph # (Auto) Seg Neutrophils % Seg Neuts % (Manual) Lymphocytes % (Manual) Seg Neutrophils # Man Lymphocytes # (Manual) D-Dimer ABG pH POC ABG pCO2 POC ABG pO2 ABG Hemoglobin ABG Oxyhemoglobin ABG Sodium 135.9 L ABG Potassium ABG Chloride ABG Glucose 341 H Carboxyhemoglobin Sodium 133 L Chloride 94.2 L BUN 54 H Creatinine 1.6 H Glucose 318 H POC Glucose 306 H Calcium Phosphorus Magnesium Ferritin AST 46 H Lactate Dehydrogenase C-Reactive Protein Total Protein Albumin 2.7 L TSH Arterial Blood Glucose 341 H Arterial Blood Ionized Calcium 4.5 L Ur Specific [place] Urine Creatinine Coronavirus (PCR) 09/11/20 09/11/20 09/11/20 05:56 07:22 09:00 WBC Hgb Hct Plt Count Lymph % (Auto) [place] % (Auto) Lymph # (Auto) Seg Neutrophils % Seg Neuts % (Manual) Lymphocytes % (Manual) Seg Neutrophils # Man Lymphocytes # (Manual) D-Dimer ABG pH POC ABG pCO2 POC ABG pO2 80.1 L ABG Hemoglobin ABG Oxyhemoglobin ABG Sodium 134.5 L ABG Potassium ABG Chloride ABG Glucose 334 H Carboxyhemoglobin Sodium Chloride BUN Creatinine Glucose POC Glucose 305 H Calcium Phosphorus Magnesium Ferritin AST Lactate Dehydrogenase 755 H C-Reactive Protein 5.50 H Total Protein Albumin TSH Arterial Blood Glucose 334 H Arterial Blood Ionized Calcium Ur Specific [place] Urine Creatinine Coronavirus (PCR) 09/11/20 09/11/20 09/11/20 11:33 18:17 19:00 WBC Hgb Hct Plt Count Lymph % (Auto) [place] % (Auto) Lymph # (Auto) Seg Neutrophils % Seg Neuts % (Manual) Lymphocytes % (Manual) Seg Neutrophils # Man Lymphocytes # (Manual) D-Dimer ABG pH POC ABG pCO2 POC ABG pO2 146.4 H ABG Hemoglobin ABG Oxyhemoglobin 98.3 H ABG Sodium ABG Potassium ABG Chloride ABG Glucose 267 H Carboxyhemoglobin 0.4 L Sodium Chloride BUN Creatinine Glucose POC Glucose 304 H 296 H Calcium Phosphorus Magnesium Ferritin AST Lactate Dehydrogenase C-Reactive Protein Total Protein Albumin TSH Arterial Blood Glucose 267 H Arterial Blood Ionized Calcium Ur Specific [place] Urine Creatinine Coronavirus (PCR) 09/11/20 09/11/20 09/11/20 20:30 22:23 Unknown WBC Hgb Hct Plt Count Lymph % (Auto) [place] % (Auto) Lymph # (Auto) Seg Neutrophils % Seg Neuts % (Manual) Lymphocytes % (Manual) Seg Neutrophils # Man Lymphocytes # (Manual) D-Dimer 1324.85 H ABG pH POC ABG pCO2 POC ABG pO2 ABG Hemoglobin ABG Oxyhemoglobin ABG Sodium ABG Potassium ABG Chloride ABG Glucose Carboxyhemoglobin Sodium Chloride BUN Creatinine Glucose POC Glucose 268 H Calcium Phosphorus Magnesium Ferritin 1434.0 H AST Lactate Dehydrogenase C-Reactive Protein Total Protein Albumin TSH Arterial Blood Glucose Arterial Blood Ionized Calcium Ur Specific [place] Urine Creatinine Coronavirus (PCR) 09/11/20 09/12/20 09/12/20 Unknown 04:00 05:30 WBC Hgb Hct Plt Count Lymph % (Auto) [place] % (Auto) Lymph # (Auto) Seg Neutrophils % Seg Neuts % (Manual) Lymphocytes % (Manual) Seg Neutrophils # Man Lymphocytes # (Manual) D-Dimer ABG pH POC ABG pCO2 POC ABG pO2 190.7 H ABG Hemoglobin 17.7 H ABG Oxyhemoglobin 98.9 H ABG Sodium ABG Potassium ABG Chloride ABG Glucose 322 H Carboxyhemoglobin 0.2 L Sodium Chloride BUN 58 H Creatinine 1.8 H Glucose 279 H POC Glucose 313 H Calcium 7.9 L Phosphorus Magnesium Ferritin AST Lactate Dehydrogenase C-Reactive Protein Total Protein Albumin TSH Arterial Blood Glucose 322 H Arterial Blood Ionized Calcium Ur Specific [place] Urine Creatinine Coronavirus (PCR) 09/12/20 09/12/20 09/12/20 08:43 11:58 13:30 WBC Hgb Hct Plt Count Lymph % (Auto) [place] % (Auto) Lymph # (Auto) Seg Neutrophils % Seg Neuts % (Manual) Lymphocytes % (Manual) Seg Neutrophils # Man Lymphocytes # (Manual) D-Dimer ABG pH POC ABG pCO2 POC ABG pO2 ABG Hemoglobin ABG Oxyhemoglobin ABG Sodium ABG Potassium ABG Chloride ABG Glucose Carboxyhemoglobin Sodium Chloride BUN 51 H Creatinine 1.4 H Glucose 317 H POC Glucose 329 H Calcium Phosphorus Magnesium Ferritin AST Lactate Dehydrogenase C-Reactive Protein Total Protein Albumin 3.0 L TSH Arterial Blood Glucose Arterial Blood Ionized Calcium Ur Specific [place] Urine Creatinine 43.2 H Coronavirus (PCR) 09/12/20 09/12/20 09/12/20 17:17 17:17 17:55 WBC Hgb 14.5 H Hct 43.5 H Plt Count Lymph % (Auto) [place] % (Auto) Lymph # (Auto) Seg Neutrophils % Seg Neuts % (Manual) 96.0 H Lymphocytes % (Manual) 1.0 L Seg Neutrophils # Man 9.8 H Lymphocytes # (Manual) 0.1 L D-Dimer ABG pH POC ABG pCO2 POC ABG pO2 ABG Hemoglobin ABG Oxyhemoglobin ABG Sodium ABG Potassium ABG Chloride ABG Glucose Carboxyhemoglobin Sodium Chloride BUN Creatinine Glucose POC Glucose 425 H Calcium Phosphorus Magnesium Ferritin AST Lactate Dehydrogenase C-Reactive Protein Total Protein Albumin TSH 0.067 L Arterial Blood Glucose Arterial Blood Ionized Calcium Ur Specific [place] Urine Creatinine Coronavirus (PCR) 09/12/20 09/13/20 09/13/20 23:19 03:32 04:22 WBC Hgb Hct Plt Count Lymph % (Auto) [place] % (Auto) Lymph # (Auto) Seg Neutrophils % Seg Neuts % (Manual) Lymphocytes % (Manual) Seg Neutrophils # Man Lymphocytes # (Manual) D-Dimer ABG pH 7.276 L 7.275 L POC ABG pCO2 54.0 H 54.7 H POC ABG pO2 46.6 L 47.1 L ABG Hemoglobin ABG Oxyhemoglobin 78.9 L 79.4 L ABG Sodium ABG Potassium ABG Chloride ABG Glucose 260 H 261 H Carboxyhemoglobin Sodium Chloride BUN Creatinine Glucose POC Glucose 348 H Calcium Phosphorus Magnesium Ferritin AST Lactate Dehydrogenase C-Reactive Protein Total Protein Albumin TSH Arterial Blood Glucose 260 H 261 H Arterial Blood Ionized Calcium Ur Specific [place] Urine Creatinine Coronavirus (PCR) 09/13/20 09/13/20 09/13/20 04:52 11:53 17:13 WBC Hgb Hct Plt Count Lymph % (Auto) [place] % (Auto) Lymph # (Auto) Seg Neutrophils % Seg Neuts % (Manual) Lymphocytes % (Manual) Seg Neutrophils # Man Lymphocytes # (Manual) D-Dimer ABG pH POC ABG pCO2 POC ABG pO2 ABG Hemoglobin ABG Oxyhemoglobin ABG Sodium ABG Potassium ABG Chloride ABG Glucose Carboxyhemoglobin Sodium Chloride BUN Creatinine Glucose POC Glucose 229 H 302 H 356 H Calcium Phosphorus Magnesium Ferritin AST Lactate Dehydrogenase C-Reactive Protein Total Protein Albumin TSH Arterial Blood Glucose Arterial Blood Ionized Calcium Ur Specific [place] Urine Creatinine Coronavirus (PCR) 09/13/20 09/13/20 09/13/20 23:46 Unknown Unknown WBC Hgb Hct Plt Count 135 L Lymph % (Auto) [place] % (Auto) Lymph # (Auto) Seg Neutrophils % Seg Neuts % (Manual) Lymphocytes % (Manual) Seg Neutrophils # Man Lymphocytes # (Manual) D-Dimer ABG pH POC ABG pCO2 POC ABG pO2 ABG Hemoglobin ABG Oxyhemoglobin ABG Sodium ABG Potassium ABG Chloride ABG Glucose Carboxyhemoglobin Sodium Chloride BUN 54 H Creatinine 1.6 H Glucose 255 H POC Glucose 263 H Calcium Phosphorus Magnesium Ferritin AST Lactate Dehydrogenase C-Reactive Protein Total Protein Albumin 2.8 L TSH Arterial Blood Glucose Arterial Blood Ionized Calcium Ur Specific [place] Urine Creatinine Coronavirus (PCR) 09/14/20 09/14/20 09/14/20 05:46 10:53 10:53 WBC Hgb Hct Plt Count Lymph % (Auto) [place] % (Auto) Lymph # (Auto) Seg Neutrophils % Seg Neuts % (Manual) Lymphocytes % (Manual) Seg Neutrophils # Man Lymphocytes # (Manual) D-Dimer > 57000 H ABG pH POC ABG pCO2 POC ABG pO2 ABG Hemoglobin ABG Oxyhemoglobin ABG Sodium ABG Potassium ABG Chloride ABG Glucose Carboxyhemoglobin Sodium Chloride BUN 71 H Creatinine 2.8 H D Glucose 167 H POC Glucose 226 H Calcium Phosphorus 4.90 H D Magnesium 2.40 H Ferritin AST Lactate Dehydrogenase C-Reactive Protein 5.40 H Total Protein 5.9 L Albumin 2.7 L TSH Arterial Blood Glucose Arterial Blood Ionized Calcium Ur Specific [place] Urine Creatinine Coronavirus (PCR) 09/14/20 09/14/20 11:33 13:45 WBC Hgb Hct Plt Count Lymph % (Auto) [place] % (Auto) Lymph # (Auto) Seg Neutrophils % Seg Neuts % (Manual) Lymphocytes % (Manual) Seg Neutrophils # Man Lymphocytes # (Manual) D-Dimer ABG pH 7.225 L POC ABG pCO2 60.1 H POC ABG pO2 ABG Hemoglobin ABG Oxyhemoglobin ABG Sodium ABG Potassium 5.2 H ABG Chloride 109.0 H ABG Glucose 205 H Carboxyhemoglobin Sodium Chloride BUN Creatinine Glucose POC Glucose 166 H Calcium Phosphorus Magnesium Ferritin AST Lactate Dehydrogenase C-Reactive Protein Total Protein Albumin TSH Arterial Blood Glucose 205 H Arterial Blood Ionized Calcium Ur Specific [place] Urine Creatinine Coronavirus (PCR) Chest x-ray: image reviewed (persistent bilateral infiltrates; tubes and lines in good position) Allied health notes reviewed: nursing
[2020-09-14] MEDS: REMDESIVIR 100 MG in SODIUM CHLORIDE 0.9% 250ML 250 ML IV SCH (22:02)
[2020-09-14] MEDS: SODIUM CHLORIDE 0.9% 50 ML IVPB IV SCH (22:02)
[2020-09-15] MEDS: INSULIN LISPRO 100 UNIT/ML SUB-Q SCH ×4 (00:25→18:46)
[2020-09-15] MEDS: fentaNYL DRIP Premix 2,000 MCG/100 ML BAG IV SCH ×6 (02:56→22:39)
[2020-09-15] MEDS ORDERED: SODIUM CHLORIDE 0.9% 1000 ML 1,000 ML IV ONE (03:19)
[2020-09-15 03:27] LABS: Basophils % (Auto) 0.1 % (0.0-1.8); Eosinophils % (Auto) 0.2 % (0.0-4.3); Hematocrit 38.9 % (30.3-42.9); Hemoglobin 12.7 gm/dl (10.1-14.3); Lymphocytes # (Auto) 0.5 K/mm3 (1.2-5.4); Lymphocytes % (Auto) 3.9 % (13.4-35.0); Mean Corpuscular HGB Conc 33 % (30-34); Mean Corpuscular Volume 95 fl (79-97); Monocytes # (Auto) 0.8 K/mm3 (0.0-0.8); Monocytes % (Auto) 5.9 % (0.0-7.3); Red Blood Count 4.09 M/mm3 (3.65-5.03); Red Cell Distribution Width 14.8 % (13.2-15.2)
[2020-09-15 03:28] LABS: Platelet Count 77 K/mm3 (140-440)
[2020-09-15 03:41] LABS: Albumin 2.3 g/dL (3.9-5); Calcium 8.4 mg/dL (8.4-10.2)
[2020-09-15] MEDS ORDERED: SODIUM CHLORIDE 0.9% 1000 ML 1,000 ML IV SCH (05:30)
[2020-09-15] MEDS ORDERED: CALCIUM GLUCONATE 1,000 MG in SODIUM CHLORIDE 0.9% 100 ML IV ONE (05:50)
[2020-09-15] MEDS ORDERED: SODIUM POLYSTYRENE 15 GM/60 ML ORAL LIQD PO SCH ×2 (06:00→09:00)
[2020-09-15] MEDS ORDERED: SODIUM BICARB 8.4% 50 MEQ/50 ML SYRINGE IV ONE (06:20)
--- NOTE | 2020-09-15 06:20 | Event Note ---
Date: 09/15/20 Called by the nurse that the potassium is 5.7 and BUN is 85 creatinine 4.1. Case discussed with on-call supply chain vice president Consult via and nephrology consulted. Patient is given insulin insulin 10 units, D50 1 ampoule, D50 calcium gluconate 1 g, bicarb 1 g IV fluid and Kayexalate. We will repeat the BMP.
[2020-09-15 07:06] LABS: Calcium 8.2 mg/dL (8.4-10.2)
[2020-09-15] MEDS: NORepinephrine/NS 4 MG-250 ML 4 MG/250 ML BAG IV SCH ×2 (07:50→21:20)
--- NOTE | 2020-09-15 07:57 | Consultation ---
History of Present Illness - Reason for Consult Consult date: 09/15/20 acute renal failure, hyperkalemia - History of Present Illness Hx obtained from admission H&P and records as patient is intubated 75 YO Female with HTN, DM, Obesity Hypoventilation Syndrome, OA presents to ED for evaluation. Patient states "I do not feel good". Patient states that she has experienced generalized weakness, loss of appetite, dry cough, loss of sense of smell, loss of sense of taste, shortness of breath, malaise, decreased exercise tolerance over the past 3 days with progressively worsening symptoms o tom the same timeframe. Patient daughter is available by telephone and provides additional history. Patient daughter reports that while she was checking the patient blood glucose levels the patient "I threw back in her head and she passed out". EMS was notified and upon arrival the patient was found to be in distress and subsequently transported to [facility] for further care and evaluation of the aforementioned symptoms. The patient was seen and evaluated in the emergency department. All lab and imaging studies reviewed. Patient was found to have a pulse oximetry of 82% on room air which is consistent with acute hypoxemic respiratory failure. Patient underwent chest x-ray and was found to h ave bilateral pneumonia, as well as NICOLASA with ATN, as well as suspected coronavirus infection. Patient admitted to medical floor and initiated on coronavirus protocol as well as pneumonia protocol. Patient denies fever, chills, chest pain, palpitation, productive cough, skin rash, recent ill contac ts, or known exposure to COVID-19. No prior admission for review. No medication listed at time of admission for reconciliation. Advanced care planning conducted in ED Past History Past Medical History: diabetes, hypertension, other (See HPI) Medications and Allergies Allergies Allergy/AdvReac Type Severity Reaction Status Date / Time lisinopril Allergy Severe Angioedema Verified 09/08/20 16:33 Home Medications Medication Instructions Recorded Confirmed Last Taken Type Losartan 100 mg PO DAILY 09/09/20 09/09/20 09/08/20 08:00 History Metformin HCl 500 mg PO BID 09/09/20 09/09/20 09/08/20 History 500 carvediloL 3.125 mg PO BID 09/09/20 09/09/20 09/08/20 History glipiZIDE 10 mg PO AC 09/09/20 09/09/20 09/08/20 08:00 History Active Meds: Active Medications Acetaminophen (Acetaminophen 325 Mg Tab) 650 mg PO Q4H PRN PRN Reason: Pain MILD(1-3)/Fever >100.5/CORTEZ Albuterol (Albuterol 2.5 Mg/3 Ml Nebu) 2.5 mg IH Q4HRT PRN PRN Reason: Shortness Of Breath Albuterol/Ipratropium (Ipratropium/Albuterol Sulfate 3 Ml Ampul.Neb) 1 ampul IH BID [facility] Last Admin: 09/14/20 21:00 Dose: Not Given Documented by: Lipase/Protease/Amylase (Lipase 10,500/Protease 25,000/Amylase 43,750 (Units) Dr Issa) 1 each FEEDTUBE PRN PRN PRN Reason: For Clogged Feeding Tube Ascorbic Acid (Ascorbic Acid 500 Mg Tab) 500 mg PO BID [facility] Last Admin: 09/14/20 22:03 Dose: 500 mg Documented by: Cholecalciferol (Cholecalciferol (Vit D3) 1000 Unit (25 Mcg) Tab) 1,000 unit PO QDAY [facility] Last Admin: 09/14/20 11:05 Dose: 1,000 unit Documented by: Dexamethasone (Dexamethasone 4 Mg/Ml Vial) 8 mg IV DAILY [facility] Stop: 09/19/20 10:01 Last Admin: 09/14/20 11:04 Dose: 8 mg Documented by: Dextrose (Dextrose 50% In Water (25gm) 50 Ml Syringe) 50 ml IV ONCE ONE; Protocol Stop: 09/15/20 07:52 Famotidine (Famotidine 20 Mg/2 Ml Inj) 10 mg IV BID [facility] Last Admin: 09/14/20 22:03 Dose: 10 mg Documented by: Fentanyl (Fentanyl 100 Mcg/2 Ml Inj) 50 mcg IV Q10MIN PRN PRN Reason: ANALGESIA Guaifenesin (Guaifenesin Dm 200/20 Mg Oral Liqd 10 Ml) 10 ml PO Q4H PRN PRN Reason: Cough Last Admin: 09/10/20 05:14 Dose: 10 ml Documented by: Heparin Sodium (Porcine) (Heparin 5,000 Unit/1 Ml Vial) 5,000 unit SUB-Q Q12HR [facility] Last Admin: 09/14/20 22:02 Dose: 5,000 unit Documented by: Hydralazine HCl (Hydralazine 20 Mg/1 Ml Inj) 10 mg IV Q4H PRN PRN Reason: Hypertension REMDESIVIR 100 mg/ Sodium (Chloride) 250 mls @ 500 mls/hr IV Q24HR@2100 [facility] Stop: 09/16/20 21:29 Last Admin: 09/14/20 22:02 Dose: 500 mls/hr Documented by: Fentanyl Citrate (Fentanyl Drip Premix) 2,000 mcg in 100 mls @ 7.45 mls/hr IV TITR [facility]; Protocol Last Admin: 09/15/20 06:19 Dose: 4 mcg/kg/hr, 29.8 mls/hr Documented by: Norepinephrine (Levophed Drip 4 Mg/Ns 250 Ml) 4 mg in 250 mls @ 7.5 mls/hr IV TITR [facility]; Protocol Last Titration: 09/15/20 05:45 Dose: Infused Documented by: Sodium Chloride (Nacl 0.9% 1000 Ml) 1,000 mls @ 10 mls/hr IV DIRECT [facility] Vasopressin 20 unit/ Sodium (Chloride) 101 mls @ 9.09 mls/hr IV TITR [facility]; Protocol Dopamine HCl/Dextrose (Intropin Drip 800 Mg/D5w 250 Ml) 800 mg in 250 mls @ 5.588 mls/hr IV TITR [facility]; Protocol Last Titration: 09/14/20 17:45 Dose: 0 mcg/kg/min, 0 mls/hr Documented by: Midazolam HCl 100 mg/ Sodium (Chloride) 100 mls @ 1 mls/hr IV TITR [facility]; Protocol Last Admin: 09/14/20 12:37 Dose: 5 mg/hr, 5 mls/hr Documented by: Propofol (Diprivan 10 Mg/Ml) 1,000 mg in 100 mls @ 4.47 mls/hr IV TITR [facility]; Protocol Last Admin: 09/15/20 07:18 Dose: 5 mcg/kg/min, 4.47 mls/hr Documented by: Sodium Chloride (Nacl 0.9% 1000 Ml) 1,000 mls @ 110 mls/hr IV DIRECT [facility] Insulin Glargine (Insulin Glargine 100 Units/Ml) 15 units SUB-Q DAILY [facility] Last Admin: 09/14/20 11:04 Dose: 15 units Documented by: Insulin Human Lispro (Insulin Lispro 100 Unit/Ml) 0 unit SUB-Q Q6HR [facility]; Protocol Last Admin: 09/15/20 07:18 Dose: 3 unit Documented by: Insulin Human Regular (Insulin Regular, Human 100 Units/1 Ml) 8 units IV ONCE ONE Stop: 09/15/20 07:52 Midazolam HCl (Midazolam 2 Mg/2 Ml Inj) 2 mg IV Q10MIN PRN PRN Reason: Sedation Last Admin: 09/13/20 12:05 Dose: 2 mg Documented by: Simple Syrup (Simple Syrup 15 Ml) 15 ml FEEDTUBE PRN PRN PRN Reason: Hypoglycemia Simple Syrup (Simple Syrup 15 Ml) 30 ml FEEDTUBE PRN PRN PRN Reason: Hypoglycemia Sodium Bicarbonate (Sodium Bicarbonate 325 Mg Tab) 325 mg FEEDTUBE PRN PRN PRN Reason: For Clogged Feeding Tube Sodium Chloride (Sodium Chloride 0.9% 10 Ml Flush Syringe) 10 ml IV BID [facility] Last Admin: 09/14/20 22:03 Dose: 10 ml Documented by: Sodium Chloride (Sodium Chloride 0.9% 10 Ml Flush Syringe) 10 ml IV PRN PRN PRN Reason: LINE FLUSH Sodium Chloride (Sodium Chloride 0.9% 50 Ml Ivpb) 50 ml IV Q24HR@2100 [facility] Stop: 09/16/20 21:01 Last Admin: 09/14/20 22:02 Dose: 50 ml Documented by: Sodium Polystyrene Sulfonate (Sodium Polystyrene 15 Gm/60 Ml Oral Liqd) 30 gm PO Q4H [facility] Stop: 09/15/20 14:01 Zinc Sulfate (Zinc Sulfate 220 Mg Cap) 220 mg PO BID [facility] Last Admin: 09/14/20 22:03 Dose: 220 mg Documented by: Review of Systems ROS unobtainable: due to endotracheal tube Exam - Vital Signs Vital signs: Vital Signs Pulse Ox 89 09/08/20 16:22 - General Appearance General appearance: well-developed, well-nourished, intubated EENT: ATNC Respiratory: Decreased Breath Sounds Heart: regular, S1S2 Gastrointestinal: Present: obese Integumentary: no rash, warm and dry Results - Lab Results 09/15/20 03:10 09/15/20 06:12 Most recent lab results ABG pH 7.225 (7.320-7.450) L 09/14/20 13:45 ABG O2 Saturation 97.6 (0-100) 09/14/20 13:45 Calcium 8.2 mg/dL (8.4-10.2) L 09/15/20 06:12 Phosphorus 6.70 mg/dL (2.5-4.5) H 09/15/20 06:12 Magnesium 2.30 mg/dL (1.7-2.3) 09/15/20 06:12 Urine Creatinine 43.2 mg/dL (0.1-20.0) H 09/12/20 13:30 Urine Sodium 58 mmol/L 09/12/20 13:30 Assessment and Plan Impression * Oliguric acute kidney injury secondary to ATN * Acute hypoxic respirtaory failure secondary to PNA * COVID 19 PNA * Sepsis * Hyperkalemia * Azotemia * Type II DM Plan: * Patient with decline in UOP, worsening renal function. Recommend initiation of renal replacement therapy at this time. As patient is intubated, contacted patient's daughter, Gretta Diaz, via phone. Discussed benefits/risks of dialysis addressed. Daughter consents to dialysis. * Hemodialysis today to follow vascath insertion * UF as tolerated * Medical management of hyperK - give Kayexelate 30g x 1 dose * Dose medications for renal function * Vent management per CCM * Pressors prn to maintain MAP >65 * AM labs
[2020-09-15] MEDS ORDERED: INSULIN REGULAR, HUMAN 100 UNITS/1 ML IV SCH (08:00)
[2020-09-15] MEDS ORDERED: DEXTROSE 50% IN WATER (25GM) 50 ML SYRINGE IV SCH (08:00)
[2020-09-15] MEDS: IPRATROPIUM/ALBUTEROL SULFATE 3 ML AMPUL.NEB IH SCH ×2 (09:05→21:36)
--- NOTE | 2020-09-15 09:26 | XRay Report ---
CHEST - 1 VIEW 0755 hours INDICATION: sob COMPARISON: Yesterday FINDINGS: Support devices: Stable support device positioning. Heart: Stable cardiomediastinal silhouette. Lungs/pleura: Stable bilateral airspace opacities. No large pleural effusion or pneumothorax. Additional findings: None. IMPRESSION: Unchanged exam. Signer Name: Moe Cuellar Jr, MD Signed: 09/15/2020 9:22 AM Workstation Name: [id number]
[2020-09-15] MEDS: FAMOTIDINE 20 MG/2 ML INJ IV SCH ×2 (09:42→22:00)
[2020-09-15] MEDS: ASCORBIC ACID 500 MG TAB PO SCH ×2 (09:43→22:00)
[2020-09-15] MEDS: CHOLECALCIFEROL (VIT D3) 1000 UNIT (25 mcg) TAB PO SCH (09:43)
[2020-09-15] MEDS: HEPARIN 5,000 UNIT/1 ML VIAL SUB-Q SCH ×2 (09:43→22:00)
[2020-09-15] MEDS: dexAMETHasone 4 MG/ML VIAL IV SCH (09:43)
[2020-09-15] MEDS: INSULIN GLARGINE 100 UNITS/ML SUB-Q SCH (09:44)
[2020-09-15] MEDS: ZINC SULFATE 220 MG CAP PO SCH ×2 (10:04→22:00)
[2020-09-15] MEDS ORDERED: SODIUM CHLORIDE 0.9% 100 ML IV PRN (11:00)
[2020-09-15] MEDS ORDERED: WATER FOR INJ Sterile (PF) 10 ML ONE (11:14)
[2020-09-15 11:35] LABS: C-Reactive Protein 3.9 mg/dL (0.00-1.30)
--- NOTE | 2020-09-15 11:38 | Progress Note ---
Assessment and Plan Cultures: SARS CoV2 PCR: Positive 09/08/2020 blood culture: No growth 09/08/2020 urine culture: Usual skin stefania A/P: 75-year-old female with hypertension, diabetes, obesity hypoventilation syndrome was admitted to the hospital with cough, shortness of breath, not feeling well: #Shock: no clear evidence of bacterial infection. Completed empiric CAP coverage. Probably related to severe/critical COVID. Rise in procal now probably from renal failure #Bilateral COVID-19 pneumonia: critical disease. #Acute hypoxic respiratory failure: On the vent with very high requirements. #Morbid obesity #Hypertension, diabetes #Leukopenia, mild thrombocytopenia, transaminitis: Likely related to COVID-19 #NICOLASA: worse. Recs: -Worsening renal failure, will discontinue remdesivir -IV Tocilizumab administered 09/12/2020 -continue steroids, higher dose due to morbid obesity -completed abx -Given significantly worse D-dimer, inability to do CTA because of renal failure (initial work up was negative), consider increasing anticoagulant dose -very poor prognosis Rory Ahuja MD, FACP [facility], [place], [facility] O: [phone] F: [phone] Subjective Date of service: 09/15/20 Principal diagnosis: Ac hypoxemic resp failure; ARDS; COVID-19 infxn; PNA; DM II; Obesity Interval history: No fever. Remains on the vent. On pressors. On remdesivir. D-dimer greater than 10,000. Creatinine 4.3. Procalcitonin 0.74 Objective - Exam Narrative Exam: Physical Exam (reviewed in chart to minimize risk of transmission) Constitutional: deferred Head, Ears, Nose: deferred Eyes: deferred Neck: deferred Oral: deferred Cardiovascular: deferred Respiratory: deferred GI: deferred Musculoskeletal: deferred Skin: deferred Hem/Lymphatic: deferred Psych: deferred Neurological: deferred - Constitutional Vitals: Vital Signs Temp Pulse Resp BP Pulse Ox 98.0 F 71 25 H 123/53 91 09/15/20 07:14 09/15/20 11:30 09/15/20 11:30 09/15/20 11:06 09/15/20 11:30 Temperature -Last 24 Hours Temperature 98.0 F Temperature 98.8 F Temperature 97.8 F Temperature 97.7 F Temperature 97.8 F - Labs CBC & Chem 7: 09/15/20 03:10 09/15/20 06:12 Labs: Abnormal lab results 09/14/20 09/14/20 09/14/20 Range/Units 10:53 10:53 13:45 WBC (4.5-11.0) K/mm3 Plt Count (140-440) K/mm3 Lymph % (Auto) (13.4-35.0) % Lymph # (Auto) (1.2-5.4) K/mm3 Seg Neutrophils % (40.0-70.0) % Seg Neutrophils # (1.8-7.7) K/mm3 D-Dimer > 26806 H (0-234) ng/mlDDU ABG pH 7.225 L (7.320-7.450) POC ABG pCO2 60.1 H (32.0-48.0) mmHg ABG Potassium 5.2 H (3.40-4.50) mmol/L ABG Chloride 109.0 H (98-107) mmol/L ABG Glucose 205 H (65-95) mg/dL Potassium (3.6-5.0) mmol/L Chloride (98-107) mmol/L Carbon Dioxide (22-30) mmol/L BUN 71 H (7-17) mg/dL Creatinine 2.8 H D (0.6-1.2) mg/dL Glucose 167 H (65-100) mg/dL POC Glucose (70-105) mg/dL Calcium (8.4-10.2) mg/dL Phosphorus 4.90 H D (2.5-4.5) mg/dL Magnesium 2.40 H (1.7-2.3) mg/dL C-Reactive Protein 5.40 H (0.00-1.30) mg/dL Total Protein 5.9 L (6.3-8.2) g/dL Albumin 2.7 L (3.9-5) g/dL Arterial Blood Glucose 205 H (65-95) mg/dL 09/14/20 09/15/20 09/15/20 Range/Units 17:29 00:19 03:10 WBC 13.5 H (4.5-11.0) K/mm3 Plt Count 77 L (140-440) K/mm3 Lymph % (Auto) 3.9 L (13.4-35.0) % Lymph # (Auto) 0.5 L (1.2-5.4) K/mm3 Seg Neutrophils % 89.9 H (40.0-70.0) % Seg Neutrophils # 12.1 H (1.8-7.7) K/mm3 D-Dimer (0-234) ng/mlDDU ABG pH (7.320-7.450) POC ABG pCO2 (32.0-48.0) mmHg ABG Potassium (3.40-4.50) mmol/L ABG Chloride (98-107) mmol/L ABG Glucose (65-95) mg/dL Potassium (3.6-5.0) mmol/L Chloride (98-107) mmol/L Carbon Dioxide (22-30) mmol/L BUN (7-17) mg/dL Creatinine (0.6-1.2) mg/dL Glucose (65-100) mg/dL POC Glucose 202 H 174 H (70-105) mg/dL Calcium (8.4-10.2) mg/dL Phosphorus (2.5-4.5) mg/dL Magnesium (1.7-2.3) mg/dL C-Reactive Protein (0.00-1.30) mg/dL Total Protein (6.3-8.2) g/dL Albumin (3.9-5) g/dL Arterial Blood Glucose (65-95) mg/dL 09/15/20 09/15/20 09/15/20 Range/Units 03:10 03:10 03:10 WBC (4.5-11.0) K/mm3 Plt Count (140-440) K/mm3 Lymph % (Auto) (13.4-35.0) % Lymph # (Auto) (1.2-5.4) K/mm3 Seg Neutrophils % (40.0-70.0) % Seg Neutrophils # (1.8-7.7) K/mm3 D-Dimer > 56093 H (0-234) ng/mlDDU ABG pH (7.320-7.450) POC ABG pCO2 (32.0-48.0) mmHg ABG Potassium (3.40-4.50) mmol/L ABG Chloride (98-107) mmol/L ABG Glucose (65-95) mg/dL Potassium 5.7 H (3.6-5.0) mmol/L Chloride 107.7 H (98-107) mmol/L Carbon Dioxide 21 L (22-30) mmol/L BUN 85 H (7-17) mg/dL Creatinine 4.1 H (0.6-1.2) mg/dL Glucose 166 H (65-100) mg/dL POC Glucose (70-105) mg/dL Calcium (8.4-10.2) mg/dL Phosphorus 6.50 H D (2.5-4.5) mg/dL Magnesium 2.40 H (1.7-2.3) mg/dL C-Reactive Protein 3.90 H (0.00-1.30) mg/dL Total Protein 5.9 L (6.3-8.2) g/dL Albumin 2.3 L (3.9-5) g/dL Arterial Blood Glucose (65-95) mg/dL 09/15/20 09/15/20 Range/Units 05:34 06:12 WBC (4.5-11.0) K/mm3 Plt Count (140-440) K/mm3 Lymph % (Auto) (13.4-35.0) % Lymph # (Auto) (1.2-5.4) K/mm3 Seg Neutrophils % (40.0-70.0) % Seg Neutrophils # (1.8-7.7) K/mm3 D-Dimer (0-234) ng/mlDDU ABG pH (7.320-7.450) POC ABG pCO2 (32.0-48.0) mmHg ABG Potassium (3.40-4.50) mmol/L ABG Chloride (98-107) mmol/L ABG Glucose (65-95) mg/dL Potassium 5.5 H (3.6-5.0) mmol/L Chloride 108.0 H (98-107) mmol/L Carbon Dioxide (22-30) mmol/L BUN 87 H (7-17) mg/dL Creatinine 4.3 H (0.6-1.2) mg/dL Glucose 151 H (65-100) mg/dL POC Glucose 146 H (70-105) mg/dL Calcium 8.2 L (8.4-10.2) mg/dL Phosphorus 6.70 H (2.5-4.5) mg/dL Magnesium (1.7-2.3) mg/dL C-Reactive Protein (0.00-1.30) mg/dL Total Protein (6.3-8.2) g/dL Albumin (3.9-5) g/dL Arterial Blood Glucose (65-95) mg/dL
--- NOTE | 2020-09-15 12:18 | Procedure Note ---
Date of procedure: 09/15/20 Pre-op diagnosis: COVID 19 PNA, NICOLASA Post-op diagnosis: same Procedure: Left IJ trialysis Phone consent for trialysis catheter obtain from daughter, Vikas Diaz for HD catheter Left IJ trialysis catheter placed using ultrasound guidance Sterile technique utilized. Area prepped with chlorhexidine/ full body drape utilized. Needle was used to access vessel, wire placed and placement confirmed with ultrasound. Line was sutured, biopatch placed and tegaderm dressing applied. Chest xray to confirm placement. No pneumothorax. RN called to bedside. Pt tolerated procedure well. For the procedure her FiO2 was bumped to 100% while HOB was flat. VS remained stable throughout procedure. CCT: 60 minutes (time spent placing line not included in daily critical care time) Anesthesia: local Surgeon: VERNON ELENA Engineer: ZAC CARVER Estimated blood loss: minimal Condition: critical Disposition: ICU
[2020-09-15] MEDS: MIDAZOLAM 100 MG in SODIUM CHLORIDE 0.9% 80 ML IV SCH (12:24)
--- NOTE | 2020-09-15 12:54 | XRay Report ---
CHEST 1 VIEW 1229 hours INDICATION: post lij vas cath placement. COMPARISON: Earlier today at 0755 hours FINDINGS: Support devices: A left IJ vas catheter has been inserted which terminates in the lower SVC. Heart: Within normal limits. Lungs/Pleura: Bilateral lung opacities are stable. No pneumothorax. Additional findings: None. IMPRESSION: Adequate left IJ Vas-Cath placement. No pneumothorax. Signer Name: Moe Cuellar Jr, MD Signed: 09/15/2020 12:49 PM Workstation Name: [id number]
[2020-09-15] MEDS ORDERED: HEPARIN 10,000 UNITS/10 ML VIAL IV PRN (13:05)
--- NOTE | 2020-09-15 13:56 | Progress Note ---
Assessment and Plan Acute hypoxemic respiratory failure Acute respiratory distress syndrome COVID-19 infection Bilateral pneumonia Diabetes Hypertension Obesity Leukopenia Elevated serum inflammatory markers to include D-dimer, ferritin and LDH - continue daily proning but 12 hours today re: developing skin breakdown - increase set rate to 30/min re: respiratory acidosis with increased hypotension - for Vascath and dialysis later today - repeat CBC in am re: thrombocytopenia (improved today) - continue to wean vasopressors for target MAP > 65 mmHg - continue Propofol for better sedation while proned - continue chacon catheter for strict I's & O's - continue care as below otherwise; - continue Daily SAT and SBT assessment as tolerated - continue to wean supplemental oxygen for target O2 sat's > 90% acutely - VAP bundle addressed - continue lung protective strategies - continue bronchodilators with pulmonary hygiene per RT - wean per pulmonary driven protocols otherwise - avoid nephrotoxins, renally dose all medications - continue accuchecks with glycemic control per SSI (While critically ill target blood glucose of 140-180 mg/dL; avoid hypoglycemia) - sedation prn for target RASS 0 to -1 - continue to avoid benzodiazepine's, reduce the possibility of delirium - complete AB's per ID rec's - prn analgesia per CPOT score - Maintenance of sleep-wake cycle, avoid delirium - continue enteral nutritional support at goal rate as tolerated - G.I. & VTE prophylaxis - PT/OT/ROM exercises - continue mobility protocols for pressure ulcer prophylaxis - Monitor hemodynamics closely - continue other care per attending / other consultants - discharge planning ongoing concurrently COVID SPECIFIC INTERVENTIONS - Remdesivir as per ID/Pulmonary developed protocols (ordered) - to receive Actemra - continue systemic steroids for severe COVID-19 infection empirically - follow repeat COVID tests results - zinc and vitamin C supplementation - Monitor inflammatory markers per facility protocol - ferritin, Ddimer, CRP - therapeutic anticoagulation per system Protocol based on d-dimer and clinical considerations - Continue contact and airborne isolation .... Re-evaluate in am & prn CONDITION: CRITICAL PROGNOSIS: GUARDED CODE STATUS: FULL CODE The high probability of a clinically significant, sudden or life-threatening deterioration of the [respiratory, cardiovascular & neurologic] system(s) requir ed my full and direct attention, intervention and personal management. The aggregate critical care time was [36] minutes without overlap. Time includes spent on; [x] Data Review and interpretation [x] Patient assessment and monitoring of vital signs [x] Documentation [x] Medication orders and management Subjective Date of service: 09/15/20 Principal diagnosis: Ac hypoxemic resp failure; ARDS; COVID-19 infxn; PNA; DM II; Obesity Interval history: Patient is seen today for: Ac hypoxemic resp failure; ARDS; COVID-19 infxn; PNA; DM II; Obesity Seen and examined at bedside; 24hour events reviewed; nursing and respiratory care staff consulted; no adverse overnight events reported to me; resting in bed; remains on MVS; respiratory acidosis component is worsening; some breakdown to skin off face noted; remains with ARDS and on 100% FiO2; + mild vaginal bleeding reported by RN Objective Vital Signs - 12hr 09/15/20 09/15/20 09/15/20 02:00 02:06 02:10 Temperature Pulse Rate 91 H 92 H 89 Respiratory 23 25 H 25 H Rate Blood Pressure O2 Sat by Pulse 100 100 100 Oximetry 09/15/20 09/15/20 09/15/20 02:16 02:20 02:26 Temperature Pulse Rate 90 89 89 Respiratory 25 H 25 H 25 H Rate Blood Pressure O2 Sat by Pulse 100 100 100 Oximetry 09/15/20 09/15/20 09/15/20 02:30 02:36 02:40 Temperature Pulse Rate 88 87 88 Respiratory 21 25 H 25 H Rate Blood Pressure O2 Sat by Pulse 100 100 100 Oximetry 09/15/20 09/15/20 09/15/20 02:46 02:50 02:56 Temperature Pulse Rate 87 88 83 Respiratory 21 25 H 25 H Rate Blood Pressure O2 Sat by Pulse 100 100 100 Oximetry 09/15/20 09/15/20 09/15/20 03:00 03:06 03:10 Temperature Pulse Rate 81 82 81 Respiratory 25 H 25 H 23 Rate Blood Pressure O2 Sat by Pulse 100 100 100 Oximetry 09/15/20 09/15/20 09/15/20 03:14 03:16 03:20 Temperature 98.8 F Pulse Rate 80 82 Respiratory 25 H 25 H Rate Blood Pressure O2 Sat by Pulse 100 100 Oximetry 09/15/20 09/15/20 09/15/20 03:36 03:40 03:46 Temperature Pulse Rate 81 82 78 Respiratory 25 H 25 H 25 H Rate Blood Pressure O2 Sat by Pulse 100 100 100 Oximetry 09/15/20 09/15/20 09/15/20 03:50 03:56 03:57 Temperature Pulse Rate 79 82 79 Respiratory 25 H 25 H Rate Blood Pressure 124/56 O2 Sat by Pulse 100 100 100 Oximetry 09/15/20 09/15/20 09/15/20 04:00 04:06 04:10 Temperature Pulse Rate 76 77 76 Respiratory 25 H 25 H 25 H Rate Blood Pressure O2 Sat by Pulse 100 100 100 Oximetry 09/15/20 09/15/20 09/15/20 04:16 04:20 04:26 Temperature Pulse Rate 80 79 77 Respiratory 25 H 25 H 25 H Rate Blood Pressure O2 Sat by Pulse 100 100 100 Oximetry 09/15/20 09/15/20 09/15/20 04:30 04:36 04:40 Temperature Pulse Rate 79 79 77 Respiratory 25 H 25 H 25 H Rate Blood Pressure O2 Sat by Pulse 100 100 100 Oximetry 09/15/20 09/15/20 09/15/20 04:46 04:50 04:56 Temperature Pulse Rate 79 78 77 Respiratory 25 H 25 H 25 H Rate Blood Pressure O2 Sat by Pulse 100 100 100 Oximetry 09/15/20 09/15/20 09/15/20 05:00 05:06 05:10 Temperature Pulse Rate 82 88 88 Respiratory 25 H 25 H 25 H Rate Blood Pressure O2 Sat by Pulse 100 100 100 Oximetry 09/15/20 09/15/20 09/15/20 05:16 05:20 05:26 Temperature Pulse Rate 90 79 88 Respiratory 25 H 25 H 25 H Rate Blood Pressure O2 Sat by Pulse 100 100 100 Oximetry 09/15/20 09/15/20 09/15/20 05:30 05:36 05:40 Temperature Pulse Rate 88 89 89 Respiratory 25 H 25 H 25 H Rate Blood Pressure O2 Sat by Pulse 100 100 100 Oximetry 09/15/20 09/15/20 09/15/20 05:46 05:50 05:56 Temperature Pulse Rate 88 90 89 Respiratory 25 H 25 H 25 H Rate Blood Pressure O2 Sat by Pulse 100 100 100 Oximetry 09/15/20 09/15/20 09/15/20 06:00 06:06 06:10 Temperature Pulse Rate 89 84 86 Respiratory 25 H 25 H 25 H Rate Blood Pressure O2 Sat by Pulse 100 100 100 Oximetry 09/15/20 09/15/20 09/15/20 06:16 06:20 06:26 Temperature Pulse Rate 77 86 86 Respiratory 25 H 25 H 25 H Rate Blood Pressure O2 Sat by Pulse 100 100 100 Oximetry 09/15/20 09/15/20 09/15/20 06:40 06:46 06:50 Temperature Pulse Rate 79 69 76 Respiratory 25 H 25 H 25 H Rate Blood Pressure O2 Sat by Pulse 89 89 Oximetry 09/15/20 09/15/20 09/15/20 06:56 07:00 07:06 Temperature Pulse Rate 80 82 82 Respiratory 25 H 25 H 25 H Rate Blood Pressure O2 Sat by Pulse 90 92 92 Oximetry 09/15/20 09/15/20 09/15/20 07:10 07:14 07:16 Temperature 98.0 F Pulse Rate 80 80 Respiratory 25 H 25 H Rate Blood Pressure O2 Sat by Pulse 93 93 Oximetry 09/15/20 09/15/20 09/15/20 07:20 07:26 07:30 Temperature Pulse Rate 81 80 81 Respiratory 25 H 25 H 25 H Rate Blood Pressure O2 Sat by Pulse 93 93 94 Oximetry 09/15/20 09/15/20 09/15/20 07:36 07:40 07:46 Temperature Pulse Rate 83 82 81 Respiratory 25 H 25 H 25 H Rate Blood Pressure O2 Sat by Pulse 95 94 95 Oximetry 09/15/20 09/15/20 09/15/20 07:50 07:56 08:00 Temperature Pulse Rate 81 80 73 Respiratory 25 H 25 H 25 H Rate Blood Pressure 146/49 O2 Sat by Pulse 94 95 97 Oximetry 09/15/20 09/15/20 09/15/20 08:06 08:10 08:16 Temperature Pulse Rate 81 42 L 73 Respiratory 25 H 25 H 25 H Rate Blood Pressure O2 Sat by Pulse 96 99 98 Oximetry 09/15/20 09/15/20 09/15/20 08:20 08:26 08:30 Temperature Pulse Rate 76 80 72 Respiratory 25 H 25 H 25 H Rate Blood Pressure O2 Sat by Pulse 99 98 99 Oximetry 09/15/20 09/15/20 09/15/20 08:36 08:40 08:46 Temperature Pulse Rate 70 65 79 Respiratory 25 H 25 H 25 H Rate Blood Pressure 123/53 123/53 O2 Sat by Pulse 99 98 96 Oximetry 09/15/20 09/15/20 09/15/20 08:50 08:56 09:00 Temperature Pulse Rate 77 64 62 Respiratory 25 H 25 H 25 H Rate Blood Pressure 123/53 123/53 123/53 O2 Sat by Pulse 98 98 97 Oximetry 09/15/20 09/15/20 09/15/20 09:06 09:10 09:16 Temperature Pulse Rate 62 62 62 Respiratory 25 H 25 H 25 H Rate Blood Pressure 123/53 123/53 123/53 O2 Sat by Pulse 97 96 97 Oximetry 09/15/20 09/15/20 09/15/20 09:20 09:26 09:30 Temperature Pulse Rate 63 64 63 Respiratory 25 H 25 H 25 H Rate Blood Pressure 123/53 123/53 123/53 O2 Sat by Pulse 97 97 97 Oximetry 09/15/20 09/15/20 09/15/20 09:36 09:40 09:45 Temperature Pulse Rate 64 63 64 Respiratory 25 H 25 H 25 H Rate Blood Pressure 123/53 123/53 123/53 O2 Sat by Pulse 96 97 97 Oximetry 09/15/20 09/15/20 09/15/20 09:50 09:56 10:00 Temperature Pulse Rate 63 67 65 Respiratory 25 H 25 H 25 H Rate Blood Pressure 123/53 123/53 O2 Sat by Pulse 97 97 98 Oximetry 09/15/20 09/15/20 09/15/20 10:06 10:10 10:16 Temperature Pulse Rate 66 67 68 Respiratory 25 H 25 H 25 H Rate Blood Pressure O2 Sat by Pulse 98 97 97 Oximetry 09/15/20 09/15/20 09/15/20 10:20 10:26 10:30 Temperature Pulse Rate 69 66 70 Respiratory 25 H 25 H 25 H Rate Blood Pressure O2 Sat by Pulse 97 98 97 Oximetry 09/15/20 09/15/20 09/15/20 10:36 10:40 10:46 Temperature Pulse Rate 68 69 75 Respiratory 25 H 25 H 25 H Rate Blood Pressure 123/53 123/53 O2 Sat by Pulse 98 98 97 Oximetry 09/15/20 09/15/20 09/15/20 10:50 10:56 11:00 Temperature Pulse Rate 74 74 74 Respiratory 25 H 25 H 25 H Rate Blood Pressure 123/53 123/53 123/53 O2 Sat by Pulse 97 98 98 Oximetry 09/15/20 09/15/20 09/15/20 11:06 11:10 11:16 Temperature Pulse Rate 73 73 68 Respiratory 25 H 25 H 25 H Rate Blood Pressure 123/53 O2 Sat by Pulse 98 98 98 Oximetry 09/15/20 09/15/20 09/15/20 11:20 11:26 11:30 Temperature Pulse Rate 68 64 71 Respiratory 25 H 25 H 25 H Rate Blood Pressure O2 Sat by Pulse 97 93 91 Oximetry Constitutional: appears uncomfortable, other (elderly obese female with mildly increased respiratory effort at rest on MVS) Eyes: non-icteric ENT: oropharynx moist, other (ETT 24 cm STEVEN) Neck: supple, other (large circumference) Effort: mildly labored Ascultation: Bilateral: diminished breath sounds, rhonchi Percussion: Bilateral: not dull Cardiovascular: regular rate and rhythm Gastrointestinal: normoactive bowel sounds, soft, non-tender, non-distended (protuberant) Integumentary: other (some excoriation to skin of face) Extremities: no cyanosis, no edema, pulses normal, no ischemia or petechiae Neurologic: non-focal exam (grossly), pupils equal and round, motor strength normal and, other (sedated) Psychiatric: other (unable to assess) CBC and BMP: 09/18/20 05:15 09/18/20 05:15 ABG, PT/INR, D-dimer: ABG ABG pH 7.178 (7.320-7.450) L 09/15/20 12:30 POC ABG pCO2 58.7 mmHg (32.0-48.0) H 09/15/20 12:30 POC ABG pO2 65.2 mmHg (83-108) L 09/15/20 12:30 POC ABG HCO3 21.3 09/15/20 12:30 ABG O2 Saturation 91.4 (0-100) 09/15/20 12:30 PT/INR, D-dimer PT 14.2 Sec. (12.2-14.9) 09/08/20 17:37 INR 1.04 (0.87-1.13) 09/08/20 17:37 D-Dimer > 70951 ng/mlDDU (0-234) H 09/15/20 03:10 Abnormal lab findings: Abnormal Labs 09/08/20 09/08/20 09/08/20 17:37 17:37 17:37 WBC 4.3 L Hgb Hct Plt Count 106 L Lymph % (Auto) [place] % (Auto) 7.5 H Lymph # (Auto) 0.6 L Seg Neutrophils % 77.4 H Seg Neuts % (Manual) Lymphocytes % (Manual) Seg Neutrophils # Seg Neutrophils # Man Lymphocytes # (Manual) D-Dimer 741.67 H ABG pH POC ABG pCO2 POC ABG pO2 ABG Hemoglobin ABG Oxyhemoglobin ABG Sodium ABG Potassium ABG Chloride ABG Glucose Carboxyhemoglobin Sodium 129 L Potassium Chloride 91.9 L Carbon Dioxide BUN 32 H Creatinine 1.5 H Glucose 200 H POC Glucose Calcium 8.1 L Phosphorus Magnesium Ferritin AST 49 H Lactate Dehydrogenase C-Reactive Protein Total Protein Albumin 2.7 L TSH Arterial Blood Glucose Arterial Blood Ionized Calcium Ur Specific [place] Urine Creatinine Coronavirus (PCR) 09/08/20 09/08/20 09/08/20 17:37 17:37 22:24 WBC Hgb Hct Plt Count Lymph % (Auto) [place] % (Auto) Lymph # (Auto) Seg Neutrophils % Seg Neuts % (Manual) Lymphocytes % (Manual) Seg Neutrophils # Seg Neutrophils # Man Lymphocytes # (Manual) D-Dimer ABG pH POC ABG pCO2 POC ABG pO2 ABG Hemoglobin ABG Oxyhemoglobin ABG Sodium ABG Potassium ABG Chloride ABG Glucose Carboxyhemoglobin Sodium Potassium Chloride Carbon Dioxide BUN Creatinine Glucose 201 H POC Glucose Calcium Phosphorus Magnesium Ferritin 731.2 H AST Lactate Dehydrogenase 396 H C-Reactive Protein 7.00 H Total Protein Albumin TSH Arterial Blood Glucose Arterial Blood Ionized Calcium Ur Specific [place] 1.035 H Urine Creatinine Coronavirus (PCR) 09/08/20 09/09/20 09/09/20 23:35 07:30 08:28 WBC 3.4 L Hgb 15.5 H Hct 47.1 H Plt Count 95 L Lymph % (Auto) 9.5 L [place] % (Auto) Lymph # (Auto) 0.3 L Seg Neutrophils % 85.2 H Seg Neuts % (Manual) Lymphocytes % (Manual) Seg Neutrophils # Seg Neutrophils # Man Lymphocytes # (Manual) D-Dimer ABG pH POC ABG pCO2 POC ABG pO2 ABG Hemoglobin ABG Oxyhemoglobin ABG Sodium ABG Potassium ABG Chloride ABG Glucose Carboxyhemoglobin Sodium Potassium Chloride Carbon Dioxide BUN Creatinine Glucose POC Glucose 188 H 281 H Calcium Phosphorus Magnesium Ferritin AST Lactate Dehydrogenase C-Reactive Protein Total Protein Albumin TSH Arterial Blood Glucose Arterial Blood Ionized Calcium Ur Specific [place] Urine Creatinine Coronavirus (PCR) 09/09/20 09/09/20 09/09/20 08:28 09:00 11:48 WBC Hgb Hct Plt Count Lymph % (Auto) [place] % (Auto) Lymph # (Auto) Seg Neutrophils % Seg Neuts % (Manual) Lymphocytes % (Manual) Seg Neutrophils # Seg Neutrophils # Man Lymphocytes # (Manual) D-Dimer ABG pH POC ABG pCO2 POC ABG pO2 ABG Hemoglobin ABG Oxyhemoglobin ABG Sodium ABG Potassium ABG Chloride ABG Glucose Carboxyhemoglobin Sodium 130 L Potassium Chloride 93.5 L Carbon Dioxide BUN 31 H Creatinine 1.3 H Glucose 266 H POC Glucose 354 H Calcium Phosphorus Magnesium Ferritin AST 48 H Lactate Dehydrogenase C-Reactive Protein Total Protein Albumin 2.8 L TSH Arterial Blood Glucose Arterial Blood Ionized Calcium Ur Specific [place] Urine Creatinine Coronavirus (PCR) Positive A 09/09/20 09/09/20 09/10/20 17:21 21:15 08:00 WBC Hgb Hct Plt Count Lymph % (Auto) [place] % (Auto) Lymph # (Auto) Seg Neutrophils % Seg Neuts % (Manual) Lymphocytes % (Manual) Seg Neutrophils # Seg Neutrophils # Man Lymphocytes # (Manual) D-Dimer ABG pH POC ABG pCO2 POC ABG pO2 ABG Hemoglobin ABG Oxyhemoglobin ABG Sodium ABG Potassium ABG Chloride ABG Glucose Carboxyhemoglobin Sodium Potassium Chloride Carbon Dioxide BUN Creatinine Glucose POC Glucose 332 H 226 H 240 H Calcium Phosphorus Magnesium Ferritin AST Lactate Dehydrogenase C-Reactive Protein Total Protein Albumin TSH Arterial Blood Glucose Arterial Blood Ionized Calcium Ur Specific [place] Urine Creatinine Coronavirus (PCR) 09/10/20 09/10/20 09/10/20 12:12 15:14 16:43 WBC Hgb Hct Plt Count Lymph % (Auto) [place] % (Auto) Lymph # (Auto) Seg Neutrophils % Seg Neuts % (Manual) Lymphocytes % (Manual) Seg Neutrophils # Seg Neutrophils # Man Lymphocytes # (Manual) D-Dimer ABG pH POC ABG pCO2 48.5 H POC ABG pO2 51.9 L ABG Hemoglobin ABG Oxyhemoglobin 85.1 L ABG Sodium 135.6 L ABG Potassium ABG Chloride ABG Glucose 310 H Carboxyhemoglobin Sodium 132 L Potassium Chloride 93.2 L Carbon Dioxide BUN 43 H Creatinine 1.6 H Glucose 277 H POC Glucose 267 H Calcium Phosphorus Magnesium Ferritin AST 49 H Lactate Dehydrogenase C-Reactive Protein Total Protein 8.3 H Albumin 3.0 L TSH Arterial Blood Glucose 310 H Arterial Blood Ionized Calcium Ur Specific [place] Urine Creatinine Coronavirus (PCR) 09/10/20 09/10/20 09/11/20 21:34 23:33 05:56 WBC Hgb Hct Plt Count Lymph % (Auto) [place] % (Auto) Lymph # (Auto) Seg Neutrophils % Seg Neuts % (Manual) Lymphocytes % (Manual) Seg Neutrophils # Seg Neutrophils # Man Lymphocytes # (Manual) D-Dimer ABG pH POC ABG pCO2 POC ABG pO2 ABG Hemoglobin ABG Oxyhemoglobin ABG Sodium 135.9 L ABG Potassium ABG Chloride ABG Glucose 341 H Carboxyhemoglobin Sodium 133 L Potassium Chloride 94.2 L Carbon Dioxide BUN 54 H Creatinine 1.6 H Glucose 318 H POC Glucose 306 H Calcium Phosphorus Magnesium Ferritin AST 46 H Lactate Dehydrogenase C-Reactive Protein Total Protein Albumin 2.7 L TSH Arterial Blood Glucose 341 H Arterial Blood Ionized Calcium 4.5 L Ur Specific [place] Urine Creatinine Coronavirus (PCR) 09/11/20 09/11/20 09/11/20 05:56 07:22 09:00 WBC Hgb Hct Plt Count Lymph % (Auto) [place] % (Auto) Lymph # (Auto) Seg Neutrophils % Seg Neuts % (Manual) Lymphocytes % (Manual) Seg Neutrophils # Seg Neutrophils # Man Lymphocytes # (Manual) D-Dimer ABG pH POC ABG pCO2 POC ABG pO2 80.1 L ABG Hemoglobin ABG Oxyhemoglobin ABG Sodium 134.5 L ABG Potassium ABG Chloride ABG Glucose 334 H Carboxyhemoglobin Sodium Potassium Chloride Carbon Dioxide BUN Creatinine Glucose POC Glucose 305 H Calcium Phosphorus Magnesium Ferritin AST Lactate Dehydrogenase 755 H C-Reactive Protein 5.50 H Total Protein Albumin TSH Arterial Blood Glucose 334 H Arterial Blood Ionized Calcium Ur Specific [place] Urine Creatinine Coronavirus (PCR) 09/11/20 09/11/20 09/11/20 11:33 18:17 19:00 WBC Hgb Hct Plt Count Lymph % (Auto) [place] % (Auto) Lymph # (Auto) Seg Neutrophils % Seg Neuts % (Manual) Lymphocytes % (Manual) Seg Neutrophils # Seg Neutrophils # Man Lymphocytes # (Manual) D-Dimer ABG pH POC ABG pCO2 POC ABG pO2 146.4 H ABG Hemoglobin ABG Oxyhemoglobin 98.3 H ABG Sodium ABG Potassium ABG Chloride ABG Glucose 267 H Carboxyhemoglobin 0.4 L Sodium Potassium Chloride Carbon Dioxide BUN Creatinine Glucose POC Glucose 304 H 296 H Calcium Phosphorus Magnesium Ferritin AST Lactate Dehydrogenase C-Reactive Protein Total Protein Albumin TSH Arterial Blood Glucose 267 H Arterial Blood Ionized Calcium Ur Specific [place] Urine Creatinine Coronavirus (PCR) 09/11/20 09/11/20 09/11/20 20:30 22:23 Unknown WBC Hgb Hct Plt Count Lymph % (Auto) [place] % (Auto) Lymph # (Auto) Seg Neutrophils % Seg Neuts % (Manual) Lymphocytes % (Manual) Seg Neutrophils # Seg Neutrophils # Man Lymphocytes # (Manual) D-Dimer 1324.85 H ABG pH POC ABG pCO2 POC ABG pO2 ABG Hemoglobin ABG Oxyhemoglobin ABG Sodium ABG Potassium ABG Chloride ABG Glucose Carboxyhemoglobin Sodium Potassium Chloride Carbon Dioxide BUN Creatinine Glucose POC Glucose 268 H Calcium Phosphorus Magnesium Ferritin 1434.0 H AST Lactate Dehydrogenase C-Reactive Protein Total Protein Albumin TSH Arterial Blood Glucose Arterial Blood Ionized Calcium Ur Specific [place] Urine Creatinine Coronavirus (PCR) 09/11/20 09/12/20 09/12/20 Unknown 04:00 05:30 WBC Hgb Hct Plt Count Lymph % (Auto) [place] % (Auto) Lymph # (Auto) Seg Neutrophils % Seg Neuts % (Manual) Lymphocytes % (Manual) Seg Neutrophils # Seg Neutrophils # Man Lymphocytes # (Manual) D-Dimer ABG pH POC ABG pCO2 POC ABG pO2 190.7 H ABG Hemoglobin 17.7 H ABG Oxyhemoglobin 98.9 H ABG Sodium ABG Potassium ABG Chloride ABG Glucose 322 H Carboxyhemoglobin 0.2 L Sodium Potassium Chloride Carbon Dioxide BUN 58 H Creatinine 1.8 H Glucose 279 H POC Glucose 313 H Calcium 7.9 L Phosphorus Magnesium Ferritin AST Lactate Dehydrogenase C-Reactive Protein Total Protein Albumin TSH Arterial Blood Glucose 322 H Arterial Blood Ionized Calcium Ur Specific [place] Urine Creatinine Coronavirus (PCR) 09/12/20 09/12/20 09/12/20 08:43 11:58 13:30 WBC Hgb Hct Plt Count Lymph % (Auto) [place] % (Auto) Lymph # (Auto) Seg Neutrophils % Seg Neuts % (Manual) Lymphocytes % (Manual) Seg Neutrophils # Seg Neutrophils # Man Lymphocytes # (Manual) D-Dimer ABG pH POC ABG pCO2 POC ABG pO2 ABG Hemoglobin ABG Oxyhemoglobin ABG Sodium ABG Potassium ABG Chloride ABG Glucose Carboxyhemoglobin Sodium Potassium Chloride Carbon Dioxide BUN 51 H Creatinine 1.4 H Glucose 317 H POC Glucose 329 H Calcium Phosphorus Magnesium Ferritin AST Lactate Dehydrogenase C-Reactive Protein Total Protein Albumin 3.0 L TSH Arterial Blood Glucose Arterial Blood Ionized Calcium Ur Specific [place] Urine Creatinine 43.2 H Coronavirus (PCR) 09/12/20 09/12/20 09/12/20 17:17 17:17 17:55 WBC Hgb 14.5 H Hct 43.5 H Plt Count Lymph % (Auto) [place] % (Auto) Lymph # (Auto) Seg Neutrophils % Seg Neuts % (Manual) 96.0 H Lymphocytes % (Manual) 1.0 L Seg Neutrophils # Seg Neutrophils # Man 9.8 H Lymphocytes # (Manual) 0.1 L D-Dimer ABG pH POC ABG pCO2 POC ABG pO2 ABG Hemoglobin ABG Oxyhemoglobin ABG Sodium ABG Potassium ABG Chloride ABG Glucose Carboxyhemoglobin Sodium Potassium Chloride Carbon Dioxide BUN Creatinine Glucose POC Glucose 425 H Calcium Phosphorus Magnesium Ferritin AST Lactate Dehydrogenase C-Reactive Protein Total Protein Albumin TSH 0.067 L Arterial Blood Glucose Arterial Blood Ionized Calcium Ur Specific [place] Urine Creatinine Coronavirus (PCR) 09/12/20 09/13/20 09/13/20 23:19 03:32 04:22 WBC Hgb Hct Plt Count Lymph % (Auto) [place] % (Auto) Lymph # (Auto) Seg Neutrophils % Seg Neuts % (Manual) Lymphocytes % (Manual) Seg Neutrophils # Seg Neutrophils # Man Lymphocytes # (Manual) D-Dimer ABG pH 7.276 L 7.275 L POC ABG pCO2 54.0 H 54.7 H POC ABG pO2 46.6 L 47.1 L ABG Hemoglobin ABG Oxyhemoglobin 78.9 L 79.4 L ABG Sodium ABG Potassium ABG Chloride ABG Glucose 260 H 261 H Carboxyhemoglobin Sodium Potassium Chloride Carbon Dioxide BUN Creatinine Glucose POC Glucose 348 H Calcium Phosphorus Magnesium Ferritin AST Lactate Dehydrogenase C-Reactive Protein Total Protein Albumin TSH Arterial Blood Glucose 260 H 261 H Arterial Blood Ionized Calcium Ur Specific [place] Urine Creatinine Coronavirus (PCR) 09/13/20 09/13/20 09/13/20 04:52 11:53 17:13 WBC Hgb Hct Plt Count Lymph % (Auto) [place] % (Auto) Lymph # (Auto) Seg Neutrophils % Seg Neuts % (Manual) Lymphocytes % (Manual) Seg Neutrophils # Seg Neutrophils # Man Lymphocytes # (Manual) D-Dimer ABG pH POC ABG pCO2 POC ABG pO2 ABG Hemoglobin ABG Oxyhemoglobin ABG Sodium ABG Potassium ABG Chloride ABG Glucose Carboxyhemoglobin Sodium Potassium Chloride Carbon Dioxide BUN Creatinine Glucose POC Glucose 229 H 302 H 356 H Calcium Phosphorus Magnesium Ferritin AST Lactate Dehydrogenase C-Reactive Protein Total Protein Albumin TSH Arterial Blood Glucose Arterial Blood Ionized Calcium Ur Specific [place] Urine Creatinine Coronavirus (PCR) 09/13/20 09/13/20 09/13/20 23:46 Unknown Unknown WBC Hgb Hct Plt Count 135 L Lymph % (Auto) [place] % (Auto) Lymph # (Auto) Seg Neutrophils % Seg Neuts % (Manual) Lymphocytes % (Manual) Seg Neutrophils # Seg Neutrophils # Man Lymphocytes # (Manual) D-Dimer ABG pH POC ABG pCO2 POC ABG pO2 ABG Hemoglobin ABG Oxyhemoglobin ABG Sodium ABG Potassium ABG Chloride ABG Glucose Carboxyhemoglobin Sodium Potassium Chloride Carbon Dioxide BUN 54 H Creatinine 1.6 H Glucose 255 H POC Glucose 263 H Calcium Phosphorus Magnesium Ferritin AST Lactate Dehydrogenase C-Reactive Protein Total Protein Albumin 2.8 L TSH Arterial Blood Glucose Arterial Blood Ionized Calcium Ur Specific [place] Urine Creatinine Coronavirus (PCR) 09/14/20 09/14/20 09/14/20 05:46 10:53 10:53 WBC Hgb Hct Plt Count Lymph % (Auto) [place] % (Auto) Lymph # (Auto) Seg Neutrophils % Seg Neuts % (Manual) Lymphocytes % (Manual) Seg Neutrophils # Seg Neutrophils # Man Lymphocytes # (Manual) D-Dimer > 53684 H ABG pH POC ABG pCO2 POC ABG pO2 ABG Hemoglobin ABG Oxyhemoglobin ABG Sodium ABG Potassium ABG Chloride ABG Glucose Carboxyhemoglobin Sodium Potassium Chloride Carbon Dioxide BUN 71 H Creatinine 2.8 H D Glucose 167 H POC Glucose 226 H Calcium Phosphorus 4.90 H D Magnesium 2.40 H Ferritin AST Lactate Dehydrogenase C-Reactive Protein 5.40 H Total Protein 5.9 L Albumin 2.7 L TSH Arterial Blood Glucose Arterial Blood Ionized Calcium Ur Specific [place] Urine Creatinine Coronavirus (PCR) 09/14/20 09/14/20 09/14/20 11:33 13:45 17:29 WBC Hgb Hct Plt Count Lymph % (Auto) [place] % (Auto) Lymph # (Auto) Seg Neutrophils % Seg Neuts % (Manual) Lymphocytes % (Manual) Seg Neutrophils # Seg Neutrophils # Man Lymphocytes # (Manual) D-Dimer ABG pH 7.225 L POC ABG pCO2 60.1 H POC ABG pO2 ABG Hemoglobin ABG Oxyhemoglobin ABG Sodium ABG Potassium 5.2 H ABG Chloride 109.0 H ABG Glucose 205 H Carboxyhemoglobin Sodium Potassium Chloride Carbon Dioxide BUN Creatinine Glucose POC Glucose 166 H 202 H Calcium Phosphorus Magnesium Ferritin AST Lactate Dehydrogenase C-Reactive Protein Total Protein Albumin TSH Arterial Blood Glucose 205 H Arterial Blood Ionized Calcium Ur Specific [place] Urine Creatinine Coronavirus (PCR) 09/15/20 09/15/20 09/15/20 00:19 03:10 03:10 WBC 13.5 H Hgb Hct Plt Count 77 L Lymph % (Auto) 3.9 L [place] % (Auto) Lymph # (Auto) 0.5 L Seg Neutrophils % 89.9 H Seg Neuts % (Manual) Lymphocytes % (Manual) Seg Neutrophils # 12.1 H Seg Neutrophils # Man Lymphocytes # (Manual) D-Dimer ABG pH POC ABG pCO2 POC ABG pO2 ABG Hemoglobin ABG Oxyhemoglobin ABG Sodium ABG Potassium ABG Chloride ABG Glucose Carboxyhemoglobin Sodium Potassium 5.7 H Chloride 107.7 H Carbon Dioxide 21 L BUN 85 H Creatinine 4.1 H Glucose 166 H POC Glucose 174 H Calcium Phosphorus Magnesium Ferritin AST Lactate Dehydrogenase C-Reactive Protein Total Protein 5.9 L Albumin 2.3 L TSH Arterial Blood Glucose Arterial Blood Ionized Calcium Ur Specific [place] Urine Creatinine Coronavirus (PCR) 09/15/20 09/15/20 09/15/20 03:10 03:10 05:34 WBC Hgb Hct Plt Count Lymph % (Auto) [place] % (Auto) Lymph # (Auto) Seg Neutrophils % Seg Neuts % (Manual) Lymphocytes % (Manual) Seg Neutrophils # Seg Neutrophils # Man Lymphocytes # (Manual) D-Dimer > 12691 H ABG pH POC ABG pCO2 POC ABG pO2 ABG Hemoglobin ABG Oxyhemoglobin ABG Sodium ABG Potassium ABG Chloride ABG Glucose Carboxyhemoglobin Sodium Potassium Chloride Carbon Dioxide BUN Creatinine Glucose POC Glucose 146 H Calcium Phosphorus 6.50 H D Magnesium 2.40 H Ferritin AST Lactate Dehydrogenase C-Reactive Protein 3.90 H Total Protein Albumin TSH Arterial Blood Glucose Arterial Blood Ionized Calcium Ur Specific [place] Urine Creatinine Coronavirus (PCR) 09/15/20 09/15/20 09/15/20 06:12 12:30 13:33 WBC Hgb Hct Plt Count Lymph % (Auto) [place] % (Auto) Lymph # (Auto) Seg Neutrophils % Seg Neuts % (Manual) Lymphocytes % (Manual) Seg Neutrophils # Seg Neutrophils # Man Lymphocytes # (Manual) D-Dimer ABG pH 7.178 L POC ABG pCO2 58.7 H POC ABG pO2 65.2 L ABG Hemoglobin ABG Oxyhemoglobin 90.5 L ABG Sodium ABG Potassium 5.1 H ABG Chloride 110.0 H ABG Glucose 173 H Carboxyhemoglobin Sodium Potassium 5.5 H Chloride 108.0 H Carbon Dioxide BUN 87 H Creatinine 4.3 H Glucose 151 H POC Glucose 146 H Calcium 8.2 L Phosphorus 6.70 H Magnesium Ferritin AST Lactate Dehydrogenase C-Reactive Protein Total Protein Albumin TSH Arterial Blood Glucose 173 H Arterial Blood Ionized Calcium Ur Specific [place] Urine Creatinine Coronavirus (PCR) Chest x-ray: image reviewed (persistent bilateral pulmonary infiltrates) Allied health notes reviewed: nursing
[2020-09-15 14:05] LABS: Calcium 8.5 mg/dL (8.4-10.2)
[2020-09-15 14:17] LABS: Hematocrit 38.5 % (30.3-42.9); Hemoglobin 12.4 gm/dl (10.1-14.3)
[2020-09-15 14:27] LABS: INR 1.52 (0.87-1.13)
[2020-09-15 14:28] LABS: Partial Thromboplastin Time 32.7 Sec. (24.2-36.6)
[2020-09-15] MEDS: HEPARIN/ 0.45% NACL DRIP 25,000 UNIT/500 ML BAG IV SCH (15:14)
[2020-09-15 16:05] LABS: Hepatitis B Surface Antigen Non-Reactive (Negative); Hepatitis C Virus Antibody Non-Reactive (NonReactive)
--- NOTE | 2020-09-15 16:20 | Progress Note ---
Assessment and Plan Assessment and plan: 72-year-old female with HTN, DM, OSH, OA admitted for COVID-19 pneumonia, sepsis, acute hypoxic respiratory failure, NICOLASA Neuro: Acute metabolic encephalopathy -Sedated with prop and fentanyl -RASS goal neg 4 -PERRL -family updated on plan of care -case management following Cardio: SB, H/O HTN, hypotension due to covid pna/sepsis -Atropine at bedside -Hold home Coreg-- no rate lowering meds -SR-ST HR 60-70 -trend QT -NE PRN for hypotension -Hydralazine IV as needed for SBP greater than 160 -normal biV function on echo -CVP- trend daily Respiratory: Acute hypoxic respiratory failure due to covid pna , Acute hypoxemic respiratory failure, COVID-19 infection, Bilateral pneumonia -Intubated 09/10 -Presented with pneumonia -CCM consulted, appreciate recommendations -VAP bundle -Wean mechanical ventilation as tolerated -Current vent settings: CMV, tidal volume 450, rate 30, PEEP of 18, 80% FiO2 -see RT notes for titration/changes -Serial ABGs -Serial CXRs -proned 09/13 and 09/14 -continue duonebs GI: Morbid obesity, TF, cholelithiasis, transaminitis -Nutrition consulted, appreciate recommendations -tolerating TF -PPI -BR: Colace -BM 09/10 -Trend LFTs and tbili : Acute kidney injury 2/2 VMN -Presented with a BUN/creatinine of 1.5/32 -Avoid nephrotoxic medication -Consider renal consult if needed -Strict intake and output -bladder scanning with intermittent straight caths -Daily weights -Trend BMP -renal consulted for uptrending Cr urine electrolytes and renal U/S ordered -HD to start today- 09/15/2020 s/p vascath placement -AM labs ordered Heme: Leukopenia, thrombocytopenia, elevated D-dimer -Leukopenia likely secondary to COVID-19 infection -Thrombocytopenia likely secondary to sepsis -09/08 CTA chest shows no evidence of pulmonary embolism, multifocal airspace opacities with nodular densities and groundglass opacities in bilateral lungs, cholelithiasis, cholelithiasis -doppler BLE neg for DVT -no bleeding on exam -Low dose heparin gtt ID: Sepsis, COVID-19 pneumonia, Acute hypoxemic respiratory failure, Acute respiratory distress syndrome, COVID-19 infection, Bilateral pneumonia, Elevated serum inflammatory markers to include D-dimer, ferritin and LDH -COVID-19 PCR (+) on 09/09 -Infectious disease consulted, appreciate recommendations -IV tocilizumab x1 -Dexamethasone 09/10 through 09/19 -Remdesivir 09/11 through 09/14 -Azithromycin 09/09 through 09/13, Rocephin 09/09 through 09/13 -Contact/droplet precaution -Trend COVID-19 inflammatory markers -azithromycin and Rocephin completed -on zinc and Vit C Endo: h/o DM; hyperglycemia; morbidly obese -Accu-Checks every 6hours -Avoid hypoglycemia -SSI -lantus scheduled Disposition: ICU Full code Lines: A-line, IJ TLC, IJ Vascath The high probability of a clinically significant, sudden or life threatening deterioration of the [multi] system(s) required my full and direct attention, intervention and personal management. The aggregate critical care time was [60] minutes. This time is in addition to time spent performing reported procedures but includes the following: [x] Data Review and interpretation [x] Patient assessment and monitoring of vital signs [x] Documentation [x] Medication orders and management Disposition Plan: icu Total Time Spent with Patient (Minutes): 60 History Interval history: This 72-year-old female with HTN, DM, OHS, OA presents the emergency department on 09/08 with generalized weakness, loss of appetite, dry cough, loss of sense of smell, smell and taste, shortness of breath, malaise, decreased exercise tolerance over the past 3 days with progressive worsening symptoms. Patient's daughter provided additional history and stated patient's blood glucose level w as being checked and the patient "threw back her head and passed out". EMS was notified and upon arrival patient was found to be in distress transported to [facility]. Patient was evaluated emergency department and had a pulse ox on room air of 82% consistent with acute hypoxic respiratory failure, CXR showed bilateral pneumonia, NICOLASA with ATN SSO to COVID-19 infection. Patient was admitted to the medical floor initiated COVID-19 protocol as well as pneumonia protocol. 09/10: Patient was intubated by ED physician and transferred to the ICU. 09/11: Infectious disease was consulted today, patient was placed on vasopressors due to hypotension despite receiving 1 L IV fluid, Lantus started, bilateral lower extremity Doppler ultrasound ordered, A-line and CVL placed. Late in the evening patient was exhibiting sinus bradycardia, EKG ordered along with stat CMP which showed NICOLASA. Stat ABG ordered which showed elevated PaO2 at 146 otherwise unremarkable on 100% FiO2. 09/12 bradycardia overnight requiring atropine x 1 and dopamine drip 09/13 tamia overnight 09/14 PRONED 16 H over the last day Hospitalist Physical - Constitutional Vitals: Temp Pulse Resp BP Pulse Ox 99.2 F 76 30 H 100/51 91 09/15/20 16:00 09/15/20 14:26 09/15/20 14:26 09/15/20 14:26 09/15/20 14:26 General appearance: Present: no acute distress, well-nourished, obese - EENT Eyes: Present: PERRL, EOM intact - Neck Neck: Absent: masses or JVD - Respiratory Respiratory effort: normal Respiratory: bilateral: diminished - Cardiovascular Rhythm: regular Heart Sounds: Present: S1 & S2. Absent: systolic murmur, diastolic murmur - Extremities Extremities: no ischemia, pulses intact, pulses symmetrical, normal temperature, normal color Extremity abnormal: edema Peripheral Pulses: within normal limits - Abdominal General gastrointestinal: soft, non-tender, non-distended, normal bowel sounds - Integumentary Integumentary: Present: warm, dry - Psychiatric Psychiatric: other (sedated) - Neurologic Neurologic: other (sedated) - Allied Health Allied health notes reviewed: nursing, RT, social work HEART Score - HEART Score Troponin: Troponin T < 0.010 ng/mL (0.00-0.029) 09/09/20 00:39 Results - Labs CBC & Chem 7: 09/15/20 14:00 09/15/20 13:25 Labs: Laboratory Last Values WBC 13.5 K/mm3 (4.5-11.0) H 09/15/20 03:10 RBC 4.09 M/mm3 (3.65-5.03) 09/15/20 03:10 Hgb 12.4 gm/dl (10.1-14.3) 09/15/20 14:00 Hct 38.5 % (30.3-42.9) 09/15/20 14:00 MCV 95 fl (79-97) 09/15/20 03:10 MCH 31 pg (28-32) 09/15/20 03:10 MCHC 33 % (30-34) 09/15/20 03:10 RDW 14.8 % (13.2-15.2) 09/15/20 03:10 Plt Count 86 K/mm3 (140-440) L 09/15/20 14:00 Lymph % (Auto) 3.9 % (13.4-35.0) L 09/15/20 03:10 [place] % (Auto) 5.9 % (0.0-7.3) 09/15/20 03:10 Eos % (Auto) 0.2 % (0.0-4.3) 09/15/20 03:10 Baso % (Auto) 0.1 % (0.0-1.8) 09/15/20 03:10 Lymph # (Auto) 0.5 K/mm3 (1.2-5.4) L 09/15/20 03:10 [place] # (Auto) 0.8 K/mm3 (0.0-0.8) 09/15/20 03:10 Eos # (Auto) 0.0 K/mm3 (0.0-0.4) 09/15/20 03:10 Baso # (Auto) 0.0 K/mm3 (0.0-0.1) 09/15/20 03:10 Add Manual Diff Complete 09/12/20 17:17 Total Counted 100 09/12/20 17:17 Seg Neutrophils % 89.9 % (40.0-70.0) H 09/15/20 03:10 Seg Neuts % (Manual) 96.0 % (40.0-70.0) H 09/12/20 17:17 Lymphocytes % (Manual) 1.0 % (13.4-35.0) L 09/12/20 17:17 Monocytes % (Manual) 3.0 % (0.0-7.3) 09/12/20 17:17 Nucleated RBC % Not Reportable 09/12/20 17:17 Seg Neutrophils # 12.1 K/mm3 (1.8-7.7) H 09/15/20 03:10 Seg Neutrophils # Man 9.8 K/mm3 (1.8-7.7) H 09/12/20 17:17 Band Neutrophils # 0.0 K/mm3 09/12/20 17:17 Lymphocytes # (Manual) 0.1 K/mm3 (1.2-5.4) L 09/12/20 17:17 Abs React Lymphs (Man) 0.0 K/mm3 09/12/20 17:17 Monocytes # (Manual) 0.3 K/mm3 (0.0-0.8) 09/12/20 17:17 Eosinophils # (Manual) 0.0 K/mm3 (0.0-0.4) 09/12/20 17:17 Basophils # (Manual) 0.0 K/mm3 (0.0-0.1) 09/12/20 17:17 Metamyelocytes # 0.0 K/mm3 09/12/20 17:17 Myelocytes # 0.0 K/mm3 09/12/20 17:17 Promyelocytes # 0.0 K/mm3 09/12/20 17:17 Blast Cells # 0.0 K/mm3 09/12/20 17:17 WBC Morphology Not Reportable 09/12/20 17:17 Hypersegmented Neuts Not Reportable 09/12/20 17:17 Hyposegmented Neuts Not Reportable 09/12/20 17:17 Hypogranular Neuts Not Reportable 09/12/20 17:17 Smudge Cells Not Reportable 09/12/20 17:17 Toxic Granulation Not Reportable 09/12/20 17:17 Toxic Vacuolation Not Reportable 09/12/20 17:17 Dohle Bodies Not Reportable 09/12/20 17:17 Pelger-Huet Anomaly Not Reportable 09/12/20 17:17 Katrin Rods Not Reportable 09/12/20 17:17 Platelet Estimate Consistent w auto 09/12/20 17:17 Clumped Platelets Not Reportable 09/12/20 17:17 Plt Clumps, EDTA Not Reportable 09/12/20 17:17 Large Platelets Not Reportable 09/12/20 17:17 Giant Platelets Not Reportable 09/12/20 17:17 Platelet Satelliting Not Reportable 09/12/20 17:17 Plt Morphology Comment Not Reportable 09/12/20 17:17 RBC Morphology Normal 09/12/20 17:17 Dimorphic RBCs Not Reportable 09/12/20 17:17 Polychromasia Not Reportable 09/12/20 17:17 Hypochromasia Not Reportable 09/12/20 17:17 Poikilocytosis Not Reportable 09/12/20 17:17 Anisocytosis Not Reportable 09/12/20 17:17 Microcytosis Not Reportable 09/12/20 17:17 Macrocytosis Not Reportable 09/12/20 17:17 Spherocytes Not Reportable 09/12/20 17:17 Pappenheimer Bodies Not Reportable 09/12/20 17:17 Sickle Cells Not Reportable 09/12/20 17:17 Target Cells Not Reportable 09/12/20 17:17 Tear Drop Cells Not Reportable 09/12/20 17:17 Ovalocytes Not Reportable 09/12/20 17:17 Helmet Cells Not Reportable 09/12/20 17:17 Xiong-[place] Bodies Not Reportable 09/12/20 17:17 [place] Rings Not Reportable 09/12/20 17:17 [place] Cells Not Reportable 09/12/20 17:17 Bite Cells Not Reportable 09/12/20 17:17 Crenated Cell Not Reportable 09/12/20 17:17 Elliptocytes Not Reportable 09/12/20 17:17 Acanthocytes (Spur) Not Reportable 09/12/20 17:17 Rouleaux Not Reportable 09/12/20 17:17 Hemoglobin C Crystals Not Reportable 09/12/20 17:17 Schistocytes Not Reportable 09/12/20 17:17 Malaria parasites Not Reportable 09/12/20 17:17 Hansel Bodies Not Reportable 09/12/20 17:17 Hem Pathologist Commnt No 09/12/20 17:17 PT 18.8 Sec. (12.2-14.9) H 09/15/20 14:00 INR 1.52 (0.87-1.13) H 09/15/20 14:00 APTT 32.7 Sec. (24.2-36.6) 09/15/20 14:00 D-Dimer > 60602 ng/mlDDU (0-234) H 09/15/20 03:10 ABG pH 7.178 (7.320-7.450) L 09/15/20 12:30 POC ABG pCO2 58.7 mmHg (32.0-48.0) H 09/15/20 12:30 POC ABG pO2 65.2 mmHg (83-108) L 09/15/20 12:30 POC ABG HCO3 21.3 09/15/20 12:30 ABG O2 Saturation 91.4 (0-100) 09/15/20 12:30 POC ABG Base Excess -7.6 09/15/20 12:30 ABG Hemoglobin 12.9 (12.0-17.5) 09/15/20 12:30 ABG Oxyhemoglobin 90.5 (94-98) L 09/15/20 12:30 ABG Methemoglobin 0.3 (0.0-1.5) 09/15/20 12:30 ABG Sodium 139.3 mmol/L (136.0-145.0) 09/15/20 12:30 ABG Potassium 5.1 mmol/L (3.40-4.50) H 09/15/20 12:30 ABG Chloride 110.0 mmol/L (98-107) H 09/15/20 12:30 ABG Glucose 173 mg/dL (65-95) H 09/15/20 12:30 Carboxyhemoglobin 0.7 (0.5-1.5) 09/15/20 12:30 FiO2 % 80.0 09/15/20 12:30 Sodium 138 mmol/L (137-145) 09/15/20 13:25 Potassium 5.4 mmol/L (3.6-5.0) H 09/15/20 13:25 Chloride 104.7 mmol/L (98-107) 09/15/20 13:25 Carbon Dioxide 23 mmol/L (22-30) 09/15/20 13:25 Anion Gap 16 mmol/L 09/15/20 13:25 BUN 89 mg/dL (7-17) H 09/15/20 13:25 Creatinine 4.2 mg/dL (0.6-1.2) H 09/15/20 13:25 Estimated GFR 13 ml/min 09/15/20 13:25 BUN/Creatinine Ratio 21 % 09/15/20 13:25 Glucose 180 mg/dL (65-100) H 09/15/20 13:25 POC Glucose 146 mg/dL (70-105) H 09/15/20 13:33 Osmolality 329 Mosm/kg 09/12/20 17:17 Lactic Acid 1.90 mmol/L (0.7-2.0) 09/12/20 17:17 Calcium 8.5 mg/dL (8.4-10.2) 09/15/20 13:25 Phosphorus 6.70 mg/dL (2.5-4.5) H 09/15/20 06:12 Magnesium 2.30 mg/dL (1.7-2.3) 09/15/20 06:12 Ferritin 1434.0 ng/mL (10.0-200.0) H 09/11/20 Unknown Total Bilirubin 0.20 mg/dL (0.1-1.2) 09/15/20 03:10 AST 22 units/L (5-40) 09/15/20 03:10 ALT 21 units/L (7-56) 09/15/20 03:10 Alkaline Phosphatase 83 units/L (35-129) 09/15/20 03:10 Lactate Dehydrogenase 755 units/L (91-180) H 09/11/20 05:56 Troponin T < 0.010 ng/mL (0.00-0.029) 09/09/20 00:39 C-Reactive Protein 3.90 mg/dL (0.00-1.30) H 09/15/20 03:10 NT-Pro-B Natriuret Pep 503.6 pg/mL (0-900) 09/08/20 17:37 Total Protein 5.9 g/dL (6.3-8.2) L 09/15/20 03:10 Albumin 2.3 g/dL (3.9-5) L 09/15/20 03:10 Albumin/Globulin Ratio 0.6 % 09/15/20 03:10 Lipase 47 units/L (13-60) 09/08/20 17:37 Procalcitonin 0.74 ng/mL (<0.15) 09/15/20 03:10 TSH 0.067 mlU/mL (0.270-4.200) L 09/12/20 17:17 Arterial Blood Glucose 173 mg/dL (65-95) H 09/15/20 12:30 Arterial Blood Ionized Calcium 4.7 mg/dL (4.6-5.3) 09/15/20 12:30 Urine Color Yellow (Yellow) 09/12/20 13:30 Urine Turbidity Clear (Clear) 09/12/20 13:30 Urine pH 5.0 (5.0-7.0) 09/12/20 13:30 Ur Specific [place] 1.011 (1.003-1.030) 09/12/20 13:30 Urine Protein 100 mg/dl mg/dL (Negative) 09/12/20 13:30 Urine Glucose (UA) 50 mg/dL (Negative) 09/12/20 13:30 Urine Ketones Neg mg/dL (Negative) 09/12/20 13:30 Urine Blood Lg (Negative) 09/12/20 13:30 Urine Nitrite Neg (Negative) 09/12/20 13:30 Urine Bilirubin Neg (Negative) 09/12/20 13:30 Urine Urobilinogen < 2.0 mg/dL (<2.0) 09/12/20 13:30 Ur Leukocyte Esterase Neg (Negative) 09/12/20 13:30 Urine WBC (Auto) 2.0 /HPF (0.0-6.0) 09/12/20 13:30 Urine RBC (Auto) 47.0 /HPF (0.0-6.0) 09/12/20 13:30 U Epithel Cells (Auto) 2.0 /HPF (0-13.0) 09/08/20 22:24 Urine Bacteria (Auto) 1+ /HPF (Negative) 09/12/20 13:30 Urine Mucus Few /HPF 09/12/20 13:30 Urine Osmolality 340 Mosm/kg 09/12/20 13:30 Urine Creatinine 43.2 mg/dL (0.1-20.0) H 09/12/20 13:30 Urine Sodium 58 mmol/L 09/12/20 13:30 Urine Urea Nitrogen 479 09/12/20 13:30 Urine Opiates Screen Presumptive negative 09/08/20 22:24 Urine Methadone Screen Presumptive negative 09/08/20 22:24 Ur Barbiturates Screen Presumptive negative 09/08/20 22:24 Ur Phencyclidine Scrn Presumptive negative 09/08/20 22:24 Ur Amphetamines Screen Presumptive negative 09/08/20 22:24 U Benzodiazepines Scrn Presumptive negative 09/08/20 22:24 Urine Cocaine Screen Presumptive negative 09/08/20 22:24 U Marijuana (THC) Screen Presumptive negative 09/08/20 22:24 Drugs of Abuse Note Disclamer 09/08/20 22:24 Coronavirus (PCR) Positive (Negative) A 09/09/20 09:00 Hepatitis A IgM Ab Non-reactive (NonReactive) 09/15/20 13:25 Hep Bs Antigen Non-reactive (Negative) 09/15/20 13:25 Hep B Core IgM Ab Non-reactive (NonReactive) 09/15/20 13:25 Hepatitis C Antibody Non-reactive (NonReactive) 09/15/20 13:25 Begum/IV: Voiding Method Indwelling Catheter Active Medications - Current Medications Current Medications: Generic Name Dose Route Start Last Admin Trade Name Freq PRN Reason Stop Dose Admin Acetaminophen 650 mg 09/08/20 20:23 Acetaminophen 325 Mg Tab PO Q4H PRN Pain MILD(1-3)/Fever >100.5/CORTEZ Albuterol 2.5 mg 09/08/20 20:23 Albuterol 2.5 Mg/3 Ml Nebu IH Q4HRT PRN Shortness Of Breath Albuterol/Ipratropium 1 ampul 09/13/20 12:30 09/15/20 09:05 Ipratropium/Albuterol Sulfate 3 Ml Ampul.Neb IH 1 ampul BID ISIAH Administration Lipase/Protease/Amylase 1 each 09/11/20 11:45 Lipase 10,500/Protease 25,000/Amylase 43,750 (Units) Dr Luis Manuel HARRISON PRN PRN For Clogged Feeding Tube Ascorbic Acid 500 mg 09/08/20 22:00 09/15/20 09:43 Ascorbic Acid 500 Mg Tab PO 500 mg BID ISIAH Administration Cholecalciferol 1,000 unit 09/09/20 10:00 09/15/20 09:43 Cholecalciferol (Vit D3) 1000 Unit (25 Mcg) Tab PO 1,000 unit QDAY ISIAH Administration Dexamethasone 8 mg 09/10/20 17:00 09/15/20 09:43 Dexamethasone 4 Mg/Ml Vial IV 09/19/20 10:01 8 mg DAILY ISIAH Administration Famotidine 10 mg 09/14/20 22:00 09/15/20 09:42 Famotidine 20 Mg/2 Ml Inj IV 10 mg BID ISIAH Administration Fentanyl 50 mcg 09/13/20 12:12 Fentanyl 100 Mcg/2 Ml Inj IV Q10MIN PRN ANALGESIA Guaifenesin 10 ml 09/09/20 16:01 09/10/20 05:14 Guaifenesin Dm 200/20 Mg Oral Liqd 10 Ml PO 10 ml Q4H PRN Administration Cough Heparin Sodium (Porcine) 5,000 unit 09/08/20 22:00 09/15/20 09:43 Heparin 5,000 Unit/1 Ml Vial SUB-Q 5,000 unit Q12HR ISIAH Administration Heparin Sodium (Porcine) 5,000 unit 09/15/20 13:05 Heparin 10,000 Units/10 Ml Vial IV Q6H PRN Anti-Xa Assay < 0.1 units/ml Hydralazine HCl 10 mg 09/11/20 21:33 Hydralazine 20 Mg/1 Ml Inj IV Q4H PRN Hypertension Fentanyl Citrate 2,000 mcg in 100 mls @ 7.45 mls/hr 09/10/20 23:00 09/15/20 15:15 Fentanyl Drip Premix IV 4 mcg/kg/hr TITR ISIAH 29.8 mls/hr Administration Protocol 1 MCG/KG/HR Norepinephrine 4 mg in 250 mls @ 7.5 mls/hr 09/11/20 17:00 09/15/20 07:50 Levophed Drip 4 Mg/Ns 250 Ml IV 2 mcg/min TITR ISIAH 7.5 mls/hr Administration Protocol 2 MCG/MIN Vasopressin 20 unit/ Sodium 101 mls @ 9.09 mls/hr 09/11/20 22:00 Chloride IV TITR ISIAH Protocol 0.03 UNITS/MIN Dopamine HCl/Dextrose 800 mg in 250 mls @ 5.588 mls/hr 09/11/20 23:00 09/14/20 17:45 Intropin Drip 800 Mg/D5w 250 Ml IV 0 mcg/kg/min TITR ISIAH 0 mls/hr Titration Protocol 2 MCG/KG/MIN Midazolam HCl 100 mg/ Sodium 100 mls @ 1 mls/hr 09/12/20 17:30 09/15/20 12:24 Chloride IV 5 mg/hr TITR ISIAH 5 mls/hr Administration Protocol 1 MG/HR Propofol 1,000 mg in 100 mls @ 4.47 mls/hr 09/13/20 13:00 09/15/20 07:18 Diprivan 10 Mg/Ml IV 5 mcg/kg/min TITR ISIAH 4.47 mls/hr Administration Protocol 5 MCG/KG/MIN Sodium Chloride 1,000 mls @ 110 mls/hr 09/15/20 05:30 Nacl 0.9% 1000 Ml IV DIRECT ISIAH Sodium Chloride 100 mls @ 999 mls/hr 09/15/20 11:00 Nacl 0.9% IV NABEEL PRN Hypotension Heparin Sodium/Sodium Chloride 25,000 unit in 500 mls @ 30 mls/hr 09/15/20 14:00 09/15/20 15:14 Heparin/ 0.45% Nacl-25,000 Unit/500 Ml IV 1,500 units/hr TITR ISIAH 30 mls/hr Administration Protocol 1,500 UNITS/HR Insulin Glargine 15 units 09/12/20 10:00 09/15/20 09:44 Insulin Glargine 100 Units/Ml SUB-Q 15 units DAILY ISIAH Administration Insulin Human Lispro 0 unit 09/11/20 12:00 09/15/20 13:39 Insulin Lispro 100 Unit/Ml SUB-Q Not Given Q6HR [facility] Protocol Midazolam HCl 2 mg 09/12/20 17:30 09/13/20 12:05 Midazolam 2 Mg/2 Ml Inj IV 2 mg Q10MIN PRN Administration Sedation Simple Syrup 15 ml 09/11/20 11:45 Simple Syrup 15 Ml FEEDTUBE PRN PRN Hypoglycemia Simple Syrup 30 ml 09/11/20 11:45 Simple Syrup 15 Ml FEEDTUBE PRN PRN Hypoglycemia Sodium Bicarbonate 325 mg 09/11/20 11:45 Sodium Bicarbonate 325 Mg Tab FEEDTUBE PRN PRN For Clogged Feeding Tube Sodium Chloride 10 ml 09/08/20 22:00 09/15/20 09:48 Sodium Chloride 0.9% 10 Ml Flush Syringe IV 10 ml BID ISIAH Administration Sodium Chloride 10 ml 09/08/20 20:23 Sodium Chloride 0.9% 10 Ml Flush Syringe IV PRN PRN LINE FLUSH Sodium Chloride 50 ml 09/12/20 14:00 09/14/20 22:02 Sodium Chloride 0.9% 50 Ml Ivpb IV 09/16/20 21:01 50 ml Q24HR@2100 ISIAH Administration Zinc Sulfate 220 mg 09/08/20 22:00 09/15/20 10:04 Zinc Sulfate 220 Mg Cap PO 220 mg BID ISIAH Administration Nutrition/Malnutrition Assess - Dietary Evaluation Nutrition/Malnutrition Findings: Nutrition Notes Start: 09/11/20 11:37 Freq: Status: Active Protocol: Document 09/15/20 09:31 (Rec: 09/15/20 09:38 [id number]) Nutrition Notes Initial or Follow up Reassessment Current Diagnosis Acute Kidney Injury, Respiratory Failure Other Pertinent Diagnosis pneu, COVID Current Diet Glucerna 1.2 at 65 ml/hr Labs/Tests K 5.5 BUN 87 Cr 4.3 Phos 6.7 Pertinent Medications Propofol Levophed Height 5 ft 8 in Weight 149 kg [place] Body Weight (kg) 63.63 BMI 49.9 Weight Status Morbidly Obese Subjective/Other Information Will adjust TF for renal labs and 16 hour prone. TF running at 10 ml/hr. Percent of energy/protein needs met: 15%/9% Burn Absent Trauma Absent Current % PO Negligible Minimum of two criteria No physical signs of malnutrition #1 Nutrition Diagnosis Inadequate oral intake Diagnosis Progress(for reassessment Continues documentation) Is patient on ventilator? Yes Is Patient Ambulatory and/or Out of Bed No REE-(Christine-St. Jeor-confined to bed) 2457.420 Kcal/Kg value to use for calculation 12 Approximate Energy Requirements Using 1788 kcal/Kg Calculation Used for Recommendations Kcal/kg Additional Notes Protein: up to 2.5g/kg IBW (up to 159g) Fluid: 1 ml/kcal or per MD Nutrition Intervention Change Diet Order: Change TF Nutrition Support: 16 Hr Prone: For 16h proned - Nepro 1.8 at 20 ml/hr Flush 50 ml q4h For 8 h supine - Nepro 1.8 at 80 ml/hr (or as tolerated). Flush 250 q4h When finished proning: Nepro 1 .8 at 40 ml/hr Flush 175 ml q4h or per MD Kcal 1,728 Protein (gm) 78 Fluid (mL) 698 Goal #1 Meet at least 75% of protein and energy needs via TF Anticipated Discharge Needs: Unable to determine at this time Follow-Up By: 09/18/20 Additional Comments FU for TF tolerance and proning
[2020-09-15] MEDS ORDERED: SODIUM POLYSTYRENE 15 GM/60 ML ORAL LIQD PO ONE (18:30)
[2020-09-15] MEDS ORDERED: DOPamine/D5W 800 MG/250 ML 800 MG/250 ML BAG IV SCH (21:04)
[2020-09-15] MEDS: VASOPRESSIN 20 UNIT in SODIUM CHLORIDE 0.9% 100 ML IV SCH (21:25)
[2020-09-16] MEDS: INSULIN LISPRO 100 UNIT/ML SUB-Q SCH ×4 (02:11→17:41)
[2020-09-16] MEDS: fentaNYL DRIP Premix 2,000 MCG/100 ML BAG IV SCH ×7 (02:12→23:08)
[2020-09-16 03:21] LABS: Hematocrit 40.8 % (30.3-42.9); Hemoglobin 13.4 gm/dl (10.1-14.3); Mean Corpuscular HGB Conc 33 % (30-34); Mean Corpuscular Volume 95 fl (79-97); Platelet Count 105 K/mm3 (140-440); Red Blood Count 4.31 M/mm3 (3.65-5.03); Red Cell Distribution Width 15.2 % (13.2-15.2)
[2020-09-16] MEDS: MIDAZOLAM 100 MG in SODIUM CHLORIDE 0.9% 80 ML IV SCH ×2 (04:03→20:15)
[2020-09-16] MEDS: NORepinephrine/NS 4 MG-250 ML 4 MG/250 ML BAG IV SCH ×4 (04:33→19:56)
[2020-09-16 06:08] LABS: Albumin 2.9 g/dL (3.9-5); Calcium 8.6 mg/dL (8.4-10.2)
--- NOTE | 2020-09-16 08:38 | Progress Note ---
Assessment and Plan Acute hypoxemic respiratory failure Acute respiratory distress syndrome COVID-19 infection Bilateral pneumonia Diabetes Hypertension Obesity Leukopenia Elevated serum inflammatory markers to include D-dimer, ferritin and LDH - continue daily proning but 12 hours today re: developing skin breakdown - continue to wean vasopressors for target MAP > 65 mmHg - continue Propofol and Fentanylfor better sedation while proned - continue chacon catheter - continue to wean supplemental oxygen for SpO2 89-92% -Permissive hypoercaponia , monitor airway pressures, lung protective strategeis -For UF today - VAP bundle addressed - continue bronchodilators with pulmonary hygiene per RT - avoid nephrotoxins, renally dose all medications - continue accuchecks with glycemic control per SSI (While critically ill target blood glucose of 140-180 mg/dL; avoid hypoglycemia) - sedation prn for target RASS -3 to -4 - continue to avoid benzodiazepine's, reduce the possibility of delirium - s/p a course of antibitoics. Monitor clinically, temperature and WCC - analgesia per CPOT score 0-3 - continue enteral nutritional support at goal rate as tolerated when supine. Adjusted tube feeding rate when proned - Stress ulcer prophylaxis - Monitor hemodynamics closely - continue other care per attending / other consultants COVID SPECIFIC INTERVENTIONS - Remdesivir as per ID/Pulmonary developed protocols (ordered) --IV Tocilizumab administered 09/12/2020 - continue systemic steroids for severe COVID-19 infection empirically - Monitor inflammatory markers per facility protocol - ferritin, Ddimer, CRP - therapeutic anticoagulation per system Protocol based on d-dimer and clinical considerations - Continue contact and airborne isolation CONDITION: CRITICAL PROGNOSIS: GUARDED CODE STATUS: FULL CODE The high probability of a clinically significant, sudden or life-threatening deterioration of the [respiratory, cardiovascular & neurologic] system(s) required my full and direct attention, intervention and personal management. The aggregate critical care time was [45] minutes without overlap. Time includes spent on; [x] Data Review and interpretation [x] Patient assessment and monitoring of vital signs [x] Documentation [x] Medication orders and management Subjective Date of service: 09/16/20 Principal diagnosis: Ac hypoxemic resp failure; ARDS; COVID-19 infxn; PNA; DM II; Obesity Interval history: Patient is seen today for: Ac hypoxemic resp failure; ARDS; COVID-19 infxn; PNA; DM II; Obesity Seen and examined at bedside; 24hour events reviewed; nursing and respiratory care staff consulted; no adverse overnight events reported to me; resting in bed; remains on MVS; proned with frothy bloody tracheal secretions. Currently on +18/75% ABG 7.17/57/144. On Norepinephrine and Vasopressin Received one session of HD yesterday, UF of 1 liter Objective Vital Signs - 12hr 09/15/20 09/15/20 09/15/20 20:40 20:45 20:50 Temperature Pulse Rate 94 H 97 H 71 Pulse Rate [ Anterior Bilateral Throughout] Respiratory 30 H 28 H 32 H Rate Respiratory Rate [Anterior Bilateral Throughout] Blood Pressure 102/53 83/54 83/54 O2 Sat by Pulse 88 86 91 Oximetry O2 Sat by Pulse Oximetry [ Anterior Bilateral Throughout] O2 Sat by Pulse Oximetry [ Posterior Bilateral Throughout] 09/15/20 09/15/20 09/15/20 20:56 21:00 21:06 Temperature Pulse Rate 67 77 88 Pulse Rate [ Anterior Bilateral Throughout] Respiratory 31 H 31 H 32 H Rate Respiratory Rate [Anterior Bilateral Throughout] Blood Pressure 83/54 83/54 137/74 O2 Sat by Pulse 90 90 88 Oximetry O2 Sat by Pulse Oximetry [ Anterior Bilateral Throughout] O2 Sat by Pulse Oximetry [ Posterior Bilateral Throughout] 09/15/20 09/15/20 09/15/20 21:10 21:15 21:20 Temperature Pulse Rate 91 H 91 H 92 H Pulse Rate [ Anterior Bilateral Throughout] Respiratory 32 H 31 H 31 H Rate Respiratory Rate [Anterior Bilateral Throughout] Blood Pressure 137/74 114/66 114/66 O2 Sat by Pulse 87 86 89 Oximetry O2 Sat by Pulse Oximetry [ Anterior Bilateral Throughout] O2 Sat by Pulse Oximetry [ Posterior Bilateral Throughout] 09/15/20 09/15/20 09/15/20 21:26 21:30 21:36 Temperature Pulse Rate 91 H 89 98 H Pulse Rate [ 82 Anterior Bilateral Throughout] Respiratory 33 H 31 H 28 H Rate Respiratory 30 H Rate [Anterior Bilateral Throughout] Blood Pressure 114/66 105/66 105/66 O2 Sat by Pulse 90 88 87 Oximetry O2 Sat by Pulse Oximetry [ Anterior Bilateral Throughout] O2 Sat by Pulse Oximetry [ Posterior Bilateral Throughout] 09/15/20 09/15/20 09/15/20 21:40 21:45 21:50 Temperature Pulse Rate 71 88 90 Pulse Rate [ Anterior Bilateral Throughout] Respiratory 32 H 33 H 31 H Rate Respiratory Rate [Anterior Bilateral Throughout] Blood Pressure 105/66 144/72 144/72 O2 Sat by Pulse 89 86 89 Oximetry O2 Sat by Pulse Oximetry [ Anterior Bilateral Throughout] O2 Sat by Pulse Oximetry [ Posterior Bilateral Throughout] 09/15/20 09/15/20 09/15/20 21:56 22:00 22:06 Temperature Pulse Rate 93 H 94 H 92 H Pulse Rate [ Anterior Bilateral Throughout] Respiratory 31 H 31 H 30 H Rate Respiratory Rate [Anterior Bilateral Throughout] Blood Pressure 144/72 103/59 103/59 O2 Sat by Pulse 88 89 89 Oximetry O2 Sat by Pulse Oximetry [ Anterior Bilateral Throughout] O2 Sat by Pulse Oximetry [ Posterior Bilateral Throughout] 09/15/20 09/15/20 09/15/20 22:10 22:15 22:20 Temperature Pulse Rate 91 H 89 99 H Pulse Rate [ Anterior Bilateral Throughout] Respiratory 31 H 30 H 31 H Rate Respiratory Rate [Anterior Bilateral Throughout] Blood Pressure 103/59 115/64 115/64 O2 Sat by Pulse 89 89 Oximetry O2 Sat by Pulse Oximetry [ Anterior Bilateral Throughout] O2 Sat by Pulse Oximetry [ Posterior Bilateral Throughout] 09/15/20 09/15/20 09/15/20 22:26 22:30 22:34 Temperature 99.0 F Pulse Rate 100 H 105 H 110 H Pulse Rate [ Anterior Bilateral Throughout] Respiratory 31 H 30 H 26 H Rate Respiratory Rate [Anterior Bilateral Throughout] Blood Pressure 115/64 76/50 79/46 O2 Sat by Pulse 91 98 Oximetry O2 Sat by Pulse 88 Oximetry [ Anterior Bilateral Throughout] O2 Sat by Pulse 88 Oximetry [ Posterior Bilateral Throughout] 09/15/20 09/15/20 09/15/20 22:36 22:40 22:45 Temperature Pulse Rate 110 H 65 65 Pulse Rate [ Anterior Bilateral Throughout] Respiratory 30 H 31 H 32 H Rate Respiratory Rate [Anterior Bilateral Throughout] Blood Pressure 76/50 163/75 177/76 O2 Sat by Pulse 97 89 88 Oximetry O2 Sat by Pulse Oximetry [ Anterior Bilateral Throughout] O2 Sat by Pulse Oximetry [ Posterior Bilateral Throughout] 09/15/20 09/15/20 09/15/20 22:50 22:56 23:00 Temperature Pulse Rate 85 84 83 Pulse Rate [ Anterior Bilateral Throughout] Respiratory 30 H 30 H 21 Rate Respiratory Rate [Anterior Bilateral Throughout] Blood Pressure 177/76 177/76 177/76 O2 Sat by Pulse 91 90 92 Oximetry O2 Sat by Pulse Oximetry [ Anterior Bilateral Throughout] O2 Sat by Pulse Oximetry [ Posterior Bilateral Throughout] 09/15/20 09/15/20 09/15/20 23:06 23:10 23:15 Temperature Pulse Rate 80 83 84 Pulse Rate [ Anterior Bilateral Throughout] Respiratory 30 H 30 H 30 H Rate Respiratory Rate [Anterior Bilateral Throughout] Blood Pressure 177/76 177/76 116/58 O2 Sat by Pulse 91 93 90 Oximetry O2 Sat by Pulse Oximetry [ Anterior Bilateral Throughout] O2 Sat by Pulse Oximetry [ Posterior Bilateral Throughout] 09/15/20 09/15/20 09/15/20 23:20 23:26 23:30 Temperature Pulse Rate 83 89 81 Pulse Rate [ Anterior Bilateral Throughout] Respiratory 30 H 31 H 31 H Rate Respiratory Rate [Anterior Bilateral Throughout] Blood Pressure 116/58 116/58 133/64 O2 Sat by Pulse 89 91 89 Oximetry O2 Sat by Pulse Oximetry [ Anterior Bilateral Throughout] O2 Sat by Pulse Oximetry [ Posterior Bilateral Throughout] 09/15/20 09/15/20 09/15/20 23:31 23:36 23:40 Temperature Pulse Rate 82 80 83 Pulse Rate [ Anterior Bilateral Throughout] Respiratory 30 H 31 H Rate Respiratory Rate [Anterior Bilateral Throughout] Blood Pressure 156/60 133/64 133/64 O2 Sat by Pulse 90 90 92 Oximetry O2 Sat by Pulse Oximetry [ Anterior Bilateral Throughout] O2 Sat by Pulse Oximetry [ Posterior Bilateral Throughout] 09/15/20 09/15/20 09/15/20 23:43 23:45 23:50 Temperature 99.6 F Pulse Rate 80 80 Pulse Rate [ Anterior Bilateral Throughout] Respiratory 30 H 30 H Rate Respiratory Rate [Anterior Bilateral Throughout] Blood Pressure 139/63 139/63 O2 Sat by Pulse 90 92 Oximetry O2 Sat by Pulse Oximetry [ Anterior Bilateral Throughout] O2 Sat by Pulse Oximetry [ Posterior Bilateral Throughout] 09/15/20 09/16/20 09/16/20 23:56 00:00 00:06 Temperature Pulse Rate 74 82 79 Pulse Rate [ Anterior Bilateral Throughout] Respiratory 24 30 H 30 H Rate Respiratory Rate [Anterior Bilateral Throughout] Blood Pressure 139/63 147/63 147/63 O2 Sat by Pulse 92 91 91 Oximetry O2 Sat by Pulse Oximetry [ Anterior Bilateral Throughout] O2 Sat by Pulse Oximetry [ Posterior Bilateral Throughout] 09/16/20 09/16/20 09/16/20 00:10 00:15 00:20 Temperature Pulse Rate 78 77 78 Pulse Rate [ Anterior Bilateral Throughout] Respiratory 30 H 30 H 30 H Rate Respiratory Rate [Anterior Bilateral Throughout] Blood Pressure 147/63 142/65 142/65 O2 Sat by Pulse 92 90 92 Oximetry O2 Sat by Pulse Oximetry [ Anterior Bilateral Throughout] O2 Sat by Pulse Oximetry [ Posterior Bilateral Throughout] 09/16/20 09/16/20 09/16/20 00:26 00:30 00:36 Temperature Pulse Rate 76 78 77 Pulse Rate [ Anterior Bilateral Throughout] Respiratory 30 H 30 H 30 H Rate Respiratory Rate [Anterior Bilateral Throughout] Blood Pressure 142/65 146/66 146/66 O2 Sat by Pulse 92 90 92 Oximetry O2 Sat by Pulse Oximetry [ Anterior Bilateral Throughout] O2 Sat by Pulse Oximetry [ Posterior Bilateral Throughout] 09/16/20 09/16/20 09/16/20 00:40 00:45 00:50 Temperature Pulse Rate 76 75 75 Pulse Rate [ Anterior Bilateral Throughout] Respiratory 30 H 30 H 30 H Rate Respiratory Rate [Anterior Bilateral Throughout] Blood Pressure 146/66 138/68 138/68 O2 Sat by Pulse 92 90 92 Oximetry O2 Sat by Pulse Oximetry [ Anterior Bilateral Throughout] O2 Sat by Pulse Oximetry [ Posterior Bilateral Throughout] 09/16/20 09/16/20 09/16/20 00:56 01:00 01:06 Temperature Pulse Rate 79 75 Pulse Rate [ Anterior Bilateral Throughout] Respiratory 30 H 30 H Rate Respiratory Rate [Anterior Bilateral Throughout] Blood Pressure 138/68 137/57 137/57 O2 Sat by Pulse 91 89 82 L Oximetry O2 Sat by Pulse Oximetry [ Anterior Bilateral Throughout] O2 Sat by Pulse Oximetry [ Posterior Bilateral Throughout] 09/16/20 09/16/20 09/16/20 01:10 01:16 01:20 Temperature Pulse Rate 92 H Pulse Rate [ Anterior Bilateral Throughout] Respiratory 11 L Rate Respiratory Rate [Anterior Bilateral Throughout] Blood Pressure 137/57 137/57 137/57 O2 Sat by Pulse Oximetry O2 Sat by Pulse Oximetry [ Anterior Bilateral Throughout] O2 Sat by Pulse Oximetry [ Posterior Bilateral Throughout] 09/16/20 09/16/20 09/16/20 01:26 01:30 01:36 Temperature Pulse Rate 98 H Pulse Rate [ Anterior Bilateral Throughout] Respiratory 30 H 24 16 Rate Respiratory Rate [Anterior Bilateral Throughout] Blood Pressure 74/30 122/46 114/34 O2 Sat by Pulse 91 93 95 Oximetry O2 Sat by Pulse Oximetry [ Anterior Bilateral Throughout] O2 Sat by Pulse Oximetry [ Posterior Bilateral Throughout] 09/16/20 09/16/20 09/16/20 01:40 01:45 01:50 Temperature Pulse Rate 87 93 H Pulse Rate [ Anterior Bilateral Throughout] Respiratory 22 18 31 H Rate Respiratory Rate [Anterior Bilateral Throughout] Blood Pressure 114/34 162/60 162/60 O2 Sat by Pulse 96 95 96 Oximetry O2 Sat by Pulse Oximetry [ Anterior Bilateral Throughout] O2 Sat by Pulse Oximetry [ Posterior Bilateral Throughout] 09/16/20 09/16/20 09/16/20 01:56 02:00 02:06 Temperature Pulse Rate 90 88 88 Pulse Rate [ Anterior Bilateral Throughout] Respiratory 21 20 31 H Rate Respiratory Rate [Anterior Bilateral Throughout] Blood Pressure 162/60 140/52 114/34 O2 Sat by Pulse 96 94 96 Oximetry O2 Sat by Pulse Oximetry [ Anterior Bilateral Throughout] O2 Sat by Pulse Oximetry [ Posterior Bilateral Throughout] 09/16/20 09/16/20 09/16/20 02:10 02:15 02:20 Temperature Pulse Rate 87 86 88 Pulse Rate [ Anterior Bilateral Throughout] Respiratory 24 25 H 31 H Rate Respiratory Rate [Anterior Bilateral Throughout] Blood Pressure 114/34 139/50 139/50 O2 Sat by Pulse 96 95 95 Oximetry O2 Sat by Pulse Oximetry [ Anterior Bilateral Throughout] O2 Sat by Pulse Oximetry [ Posterior Bilateral Throughout] 09/16/20 09/16/20 09/16/20 02:26 02:30 02:36 Temperature Pulse Rate 91 H 86 86 Pulse Rate [ Anterior Bilateral Throughout] Respiratory 31 H 30 H 27 H Rate Respiratory Rate [Anterior Bilateral Throughout] Blood Pressure 139/50 105/45 105/45 O2 Sat by Pulse 96 95 97 Oximetry O2 Sat by Pulse Oximetry [ Anterior Bilateral Throughout] O2 Sat by Pulse Oximetry [ Posterior Bilateral Throughout] 09/16/20 09/16/20 09/16/20 02:40 02:45 02:50 Temperature Pulse Rate 88 88 78 Pulse Rate [ Anterior Bilateral Throughout] Respiratory 31 H 31 H 31 H Rate Respiratory Rate [Anterior Bilateral Throughout] Blood Pressure 105/45 128/46 128/46 O2 Sat by Pulse 97 95 96 Oximetry O2 Sat by Pulse Oximetry [ Anterior Bilateral Throughout] O2 Sat by Pulse Oximetry [ Posterior Bilateral Throughout] 09/16/20 09/16/20 09/16/20 02:56 03:00 03:06 Temperature Pulse Rate 87 84 87 Pulse Rate [ Anterior Bilateral Throughout] Respiratory 34 H 31 H 30 H Rate Respiratory Rate [Anterior Bilateral Throughout] Blood Pressure 128/46 118/42 118/42 O2 Sat by Pulse 98 97 99 Oximetry O2 Sat by Pulse Oximetry [ Anterior Bilateral Throughout] O2 Sat by Pulse Oximetry [ Posterior Bilateral Throughout] 09/16/20 09/16/20 09/16/20 03:10 03:15 03:20 Temperature Pulse Rate 86 83 93 H Pulse Rate [ Anterior Bilateral Throughout] Respiratory 31 H 32 H 31 H Rate Respiratory Rate [Anterior Bilateral Throughout] Blood Pressure 118/42 114/48 101/42 O2 Sat by Pulse 98 96 98 Oximetry O2 Sat by Pulse Oximetry [ Anterior Bilateral Throughout] O2 Sat by Pulse Oximetry [ Posterior Bilateral Throughout] 09/16/20 09/16/20 09/16/20 03:26 03:30 03:36 Temperature Pulse Rate 104 H 108 H 108 H Pulse Rate [ Anterior Bilateral Throughout] Respiratory 31 H 33 H 32 H Rate Respiratory Rate [Anterior Bilateral Throughout] Blood Pressure 101/42 101/42 71/43 O2 Sat by Pulse 98 98 Oximetry O2 Sat by Pulse Oximetry [ Anterior Bilateral Throughout] O2 Sat by Pulse Oximetry [ Posterior Bilateral Throughout] 09/16/20 09/16/20 09/16/20 03:40 03:45 03:48 Temperature 100.2 F H Pulse Rate 109 H 108 H Pulse Rate [ Anterior Bilateral Throughout] Respiratory 33 H 33 H Rate Respiratory Rate [Anterior Bilateral Throughout] Blood Pressure 71/43 80/45 O2 Sat by Pulse 98 Oximetry O2 Sat by Pulse Oximetry [ Anterior Bilateral Throughout] O2 Sat by Pulse Oximetry [ Posterior Bilateral Throughout] 09/16/20 09/16/20 09/16/20 03:50 03:56 04:00 Temperature Pulse Rate 108 H 109 H 107 H Pulse Rate [ Anterior Bilateral Throughout] Respiratory 33 H 31 H 31 H Rate Respiratory Rate [Anterior Bilateral Throughout] Blood Pressure 80/45 80/45 77/38 O2 Sat by Pulse 99 98 97 Oximetry O2 Sat by Pulse Oximetry [ Anterior Bilateral Throughout] O2 Sat by Pulse Oximetry [ Posterior Bilateral Throughout] 09/16/20 09/16/2009/16/21 04:06 04:10 04:16 Temperature Pulse Rate 106 H 96 H 89 Pulse Rate [ Anterior Bilateral Throughout] Respiratory 33 H 32 H 32 H Rate Respiratory Rate [Anterior Bilateral Throughout] Blood Pressure 78/49 95/42 102/48 O2 Sat by Pulse 100 99 97 Oximetry O2 Sat by Pulse Oximetry [ Anterior Bilateral Throughout] O2 Sat by Pulse Oximetry [ Posterior Bilateral Throughout] 09/16/20 09/16/20 09/16/20 04:20 04:26 04:30 Temperature Pulse Rate 90 89 88 Pulse Rate [ Anterior Bilateral Throughout] Respiratory 30 H 31 H 31 H Rate Respiratory Rate [Anterior Bilateral Throughout] Blood Pressure 102/48 102/48 109/46 O2 Sat by Pulse 99 99 97 Oximetry O2 Sat by Pulse Oximetry [ Anterior Bilateral Throughout] O2 Sat by Pulse Oximetry [ Posterior Bilateral Throughout] 09/16/20 09/16/20 09/16/20 04:36 04:40 04:46 Temperature Pulse Rate 85 86 80 Pulse Rate [ Anterior Bilateral Throughout] Respiratory H 31 H 32 H Rate Respiratory Rate [Anterior Bilateral Throughout] Blood Pressure 109/46 109/46 123/46 O2 Sat by Pulse 99 99 96 Oximetry O2 Sat by Pulse Oximetry [ Anterior Bilateral Throughout] O2 Sat by Pulse Oximetry [ Posterior Bilateral Throughout] 09/16/20 09/16/20 09/16/20 04:50 04:56 04:58 Temperature Pulse Rate 77 74 77 Pulse Rate [ Anterior Bilateral Throughout] Respiratory 31 H 31 H Rate Respiratory Rate [Anterior Bilateral Throughout] Blood Pressure 123/46 123/46 134/55 O2 Sat by Pulse 99 99 95 Oximetry O2 Sat by Pulse Oximetry [ Anterior Bilateral Throughout] O2 Sat by Pulse Oximetry [ Posterior Bilateral Throughout] 09/16/20 09/16/20 09/16/20 05:00 05:06 05:10 Temperature Pulse Rate 75 77 74 Pulse Rate [ Anterior Bilateral Throughout] Respiratory 31 H 30 H 30 H Rate Respiratory Rate [Anterior Bilateral Throughout] Blood Pressure 123/55 123/55 123/46 O2 Sat by Pulse 96 95 95 Oximetry O2 Sat by Pulse Oximetry [ Anterior Bilateral Throughout] O2 Sat by Pulse Oximetry [ Posterior Bilateral Throughout] 09/16/20 09/16/20 09/16/20 05:15 05:20 05:26 Temperature Pulse Rate 75 78 69 Pulse Rate [ Anterior Bilateral Throughout] Respiratory 31 H 30 H 30 H Rate Respiratory Rate [Anterior Bilateral Throughout] Blood Pressure 121/48 121/48 121/48 O2 Sat by Pulse 93 94 94 Oximetry O2 Sat by Pulse Oximetry [ Anterior Bilateral Throughout] O2 Sat by Pulse Oximetry [ Posterior Bilateral Throughout] 09/16/20 09/16/20 09/16/20 05:30 05:36 05:40 Temperature Pulse Rate 79 80 77 Pulse Rate [ Anterior Bilateral Throughout] Respiratory 30 H 30 H 31 H Rate Respiratory Rate [Anterior Bilateral Throughout] Blood Pressure 118/42 118/42 121/48 O2 Sat by Pulse 94 95 96 Oximetry O2 Sat by Pulse Oximetry [ Anterior Bilateral Throughout] O2 Sat by Pulse Oximetry [ Posterior Bilateral Throughout] 09/16/20 09/16/20 09/16/20 05:45 05:50 05:56 Temperature Pulse Rate 78 77 79 Pulse Rate [ Anterior Bilateral Throughout] Respiratory 30 H 31 H 31 H Rate Respiratory Rate [Anterior Bilateral Throughout] Blood Pressure 122/45 122/45 122/45 O2 Sat by Pulse 94 95 96 Oximetry O2 Sat by Pulse Oximetry [ Anterior Bilateral Throughout] O2 Sat by Pulse Oximetry [ Posterior Bilateral Throughout] 09/16/20 09/16/20 09/16/20 06:00 06:06 06:10 Temperature Pulse Rate 69 80 79 Pulse Rate [ Anterior Bilateral Throughout] Respiratory H 31 H 31 H Rate Respiratory Rate [Anterior Bilateral Throughout] Blood Pressure 127/45 127/45 122/45 O2 Sat by Pulse 94 95 95 Oximetry O2 Sat by Pulse Oximetry [ Anterior Bilateral Throughout] O2 Sat by Pulse Oximetry [ Posterior Bilateral Throughout] 09/16/20 09/16/20 09/16/20 06:15 06:20 06:26 Temperature Pulse Rate 78 82 85 Pulse Rate [ Anterior Bilateral Throughout] Respiratory 30 H 33 H 33 H Rate Respiratory Rate [Anterior Bilateral Throughout] Blood Pressure 124/50 124/50 124/50 O2 Sat by Pulse 94 96 96 Oximetry O2 Sat by Pulse Oximetry [ Anterior Bilateral Throughout] O2 Sat by Pulse Oximetry [ Posterior Bilateral Throughout] 09/16/20 09/16/20 09/16/20 06:30 06:36 06:40 Temperature Pulse Rate 77 79 80 Pulse Rate [ Anterior Bilateral Throughout] Respiratory 30 H 30 H 32 H Rate Respiratory Rate [Anterior Bilateral Throughout] Blood Pressure 120/44 120/44 120/44 O2 Sat by Pulse 94 95 94 Oximetry O2 Sat by Pulse Oximetry [ Anterior Bilateral Throughout] O2 Sat by Pulse Oximetry [ Posterior Bilateral Throughout] 09/16/20 09/16/20 09/16/20 06:45 06:50 06:56 Temperature Pulse Rate 82 84 88 Pulse Rate [ Anterior Bilateral Throughout] Respiratory 30 H 30 H 30 H Rate Respiratory Rate [Anterior Bilateral Throughout] Blood Pressure 115/42 115/42 115/42 O2 Sat by Pulse 92 93 95 Oximetry O2 Sat by Pulse Oximetry [ Anterior Bilateral Throughout] O2 Sat by Pulse Oximetry [ Posterior Bilateral Throughout] 09/16/20 09/16/20 09/16/20 07:00 07:06 07:10 Temperature Pulse Rate 81 81 80 Pulse Rate [ Anterior Bilateral Throughout] Respiratory 30 H 30 H 30 H Rate Respiratory Rate [Anterior Bilateral Throughout] Blood Pressure 123/46 123/46 123/46 O2 Sat by Pulse 93 95 95 Oximetry O2 Sat by Pulse Oximetry [ Anterior Bilateral Throughout] O2 Sat by Pulse Oximetry [ Posterior Bilateral Throughout] 09/16/20 09/16/20 09/16/20 07:15 07:20 07:26 Temperature Pulse Rate 77 85 101 H Pulse Rate [ Anterior Bilateral Throughout] Respiratory 30 H 31 H 31 H Rate Respiratory Rate [Anterior Bilateral Throughout] Blood Pressure 112/39 112/39 112/39 O2 Sat by Pulse 95 97 96 Oximetry O2 Sat by Pulse Oximetry [ Anterior Bilateral Throughout] O2 Sat by Pulse Oximetry [ Posterior Bilateral Throughout] 09/16/20 09/16/20 09/16/20 07:30 07:36 07:40 Temperature Pulse Rate 106 H 117 H 120 H Pulse Rate [ Anterior Bilateral Throughout] Respiratory 33 H 32 H 33 H Rate Respiratory Rate [Anterior Bilateral Throughout] Blood Pressure 112/39 71/31 71/31 O2 Sat by Pulse 97 98 Oximetry O2 Sat by Pulse Oximetry [ Anterior Bilateral Throughout] O2 Sat by Pulse Oximetry [ Posterior Bilateral Throughout] 09/16/20 07:45 Temperature Pulse Rate 119 H Pulse Rate [ Anterior Bilateral Throughout] Respiratory 30 H Rate Respiratory Rate [Anterior Bilateral Throughout] Blood Pressure 71/35 O2 Sat by Pulse 96 Oximetry O2 Sat by Pulse Oximetry [ Anterior Bilateral Throughout] O2 Sat by Pulse Oximetry [ Posterior Bilateral Throughout] Constitutional: appears uncomfortable, other (elderly obese female with mildly increased respiratory effort at rest on MVS, proned with frothy red secretions) ENT: oropharynx moist, other (ETT 24 cm STEVEN) Neck: supple, other (large circumference) Effort: mildly labored Ascultation: Bilateral: diminished breath sounds, rhonchi Percussion: Bilateral: not dull Cardiovascular: regular rate and rhythm Gastrointestinal: soft, non-tender Integumentary: normal Extremities: no cyanosis, pulses normal, edema, anasarca Neurologic: other (sedated) Psychiatric: other (unable to assess) CBC and BMP: 09/17/20 04:52 09/17/20 04:52 ABG, PT/INR, D-dimer: ABG ABG pH 7.171 (7.320-7.450) L 09/16/20 04:00 POC ABG pCO2 57.1 mmHg (32.0-48.0) H 09/16/20 04:00 POC ABG pO2 144.1 mmHg (83-108) H 09/16/20 04:00 POC ABG HCO3 20.4 09/16/20 04:00 ABG O2 Saturation 98.8 (0-100) 09/16/20 04:00 PT/INR, D-dimer PT 18.8 Sec. (12.2-14.9) H 09/15/20 14:00 INR 1.52 (0.87-1.13) H 09/15/20 14:00 D-Dimer > 26573 ng/mlDDU (0-234) H 09/15/20 03:10 Abnormal lab findings: Abnormal Labs 09/08/20 09/08/20 09/08/20 17:37 17:37 17:37 WBC 4.3 L Hgb Hct Plt Count 106 L Lymph % (Auto) [place] % (Auto) 7.5 H Lymph # (Auto) 0.6 L Seg Neutrophils % 77.4 H Seg Neuts % (Manual) Lymphocytes % (Manual) Seg Neutrophils # Seg Neutrophils # Man Lymphocytes # (Manual) PT INR D-Dimer 741.67 H Heparin Anti-Xa Level ABG pH POC ABG pCO2 POC ABG pO2 ABG Hemoglobin ABG Oxyhemoglobin ABG Sodium ABG Potassium ABG Chloride ABG Glucose Carboxyhemoglobin Sodium 129 L Potassium Chloride 91.9 L Carbon Dioxide BUN 32 H Creatinine 1.5 H Glucose 200 H POC Glucose Calcium 8.1 L Phosphorus Magnesium Ferritin AST 49 H Lactate Dehydrogenase C-Reactive Protein Total Protein Albumin 2.7 L TSH Arterial Blood Glucose Arterial Blood Ionized Calcium Ur Specific [place] Urine Creatinine Coronavirus (PCR) 09/08/20 09/08/20 09/08/20 17:37 17:37 22:24 WBC Hgb Hct Plt Count Lymph % (Auto) [place] % (Auto) Lymph # (Auto) Seg Neutrophils % Seg Neuts % (Manual) Lymphocytes % (Manual) Seg Neutrophils # Seg Neutrophils # Man Lymphocytes # (Manual) PT INR D-Dimer Heparin Anti-Xa Level ABG pH POC ABG pCO2 POC ABG pO2 ABG Hemoglobin ABG Oxyhemoglobin ABG Sodium ABG Potassium ABG Chloride ABG Glucose Carboxyhemoglobin Sodium Potassium Chloride Carbon Dioxide BUN Creatinine Glucose 201 H POC Glucose Calcium Phosphorus Magnesium Ferritin 731.2 H AST Lactate Dehydrogenase 396 H C-Reactive Protein 7.00 H Total Protein Albumin TSH Arterial Blood Glucose Arterial Blood Ionized Calcium Ur Specific [place] 1.035 H Urine Creatinine Coronavirus (PCR) 09/08/20 09/09/20 09/09/20 23:35 07:30 08:28 WBC 3.4 L Hgb 15.5 H Hct 47.1 H Plt Count 95 L Lymph % (Auto) 9.5 L [place] % (Auto) Lymph # (Auto) 0.3 L Seg Neutrophils % 85.2 H Seg Neuts % (Manual) Lymphocytes % (Manual) Seg Neutrophils # Seg Neutrophils # Man Lymphocytes # (Manual) PT INR D-Dimer Heparin Anti-Xa Level ABG pH POC ABG pCO2 POC ABG pO2 ABG Hemoglobin ABG Oxyhemoglobin ABG Sodium ABG Potassium ABG Chloride ABG Glucose Carboxyhemoglobin Sodium Potassium Chloride Carbon Dioxide BUN Creatinine Glucose POC Glucose 188 H 281 H Calcium Phosphorus Magnesium Ferritin AST Lactate Dehydrogenase C-Reactive Protein Total Protein Albumin TSH Arterial Blood Glucose Arterial Blood Ionized Calcium Ur Specific [place] Urine Creatinine Coronavirus (PCR) 09/09/20 09/09/20 09/09/20 08:28 09:00 11:48 WBC Hgb Hct Plt Count Lymph % (Auto) [place] % (Auto) Lymph # (Auto) Seg Neutrophils % Seg Neuts % (Manual) Lymphocytes % (Manual) Seg Neutrophils # Seg Neutrophils # Man Lymphocytes # (Manual) PT INR D-Dimer Heparin Anti-Xa Level ABG pH POC ABG pCO2 POC ABG pO2 ABG Hemoglobin ABG Oxyhemoglobin ABG Sodium ABG Potassium ABG Chloride ABG Glucose Carboxyhemoglobin Sodium 130 L Potassium Chloride 93.5 L Carbon Dioxide BUN 31 H Creatinine 1.3 H Glucose 266 H POC Glucose 354 H Calcium Phosphorus Magnesium Ferritin AST 48 H Lactate Dehydrogenase C-Reactive Protein Total Protein Albumin 2.8 L TSH Arterial Blood Glucose Arterial Blood Ionized Calcium Ur Specific [place] Urine Creatinine Coronavirus (PCR) Positive A 09/09/20 09/09/20 09/10/20 17:21 21:15 08:00 WBC Hgb Hct Plt Count Lymph % (Auto) [place] % (Auto) Lymph # (Auto) Seg Neutrophils % Seg Neuts % (Manual) Lymphocytes % (Manual) Seg Neutrophils # Seg Neutrophils # Man Lymphocytes # (Manual) PT INR D-Dimer Heparin Anti-Xa Level ABG pH POC ABG pCO2 POC ABG pO2 ABG Hemoglobin ABG Oxyhemoglobin ABG Sodium ABG Potassium ABG Chloride ABG Glucose Carboxyhemoglobin Sodium Potassium Chloride Carbon Dioxide BUN Creatinine Glucose POC Glucose 332 H 226 H 240 H Calcium Phosphorus Magnesium Ferritin AST Lactate Dehydrogenase C-Reactive Protein Total Protein Albumin TSH Arterial Blood Glucose Arterial Blood Ionized Calcium Ur Specific [place] Urine Creatinine Coronavirus (PCR) 09/10/20 09/10/20 09/10/20 12:12 15:14 16:43 WBC Hgb Hct Plt Count Lymph % (Auto) [place] % (Auto) Lymph # (Auto) Seg Neutrophils % Seg Neuts % (Manual) Lymphocytes % (Manual) Seg Neutrophils # Seg Neutrophils # Man Lymphocytes # (Manual) PT INR D-Dimer Heparin Anti-Xa Level ABG pH POC ABG pCO2 48.5 H POC ABG pO2 51.9 L ABG Hemoglobin ABG Oxyhemoglobin 85.1 L ABG Sodium 135.6 L ABG Potassium ABG Chloride ABG Glucose 310 H Carboxyhemoglobin Sodium 132 L Potassium Chloride 93.2 L Carbon Dioxide BUN 43 H Creatinine 1.6 H Glucose 277 H POC Glucose 267 H Calcium Phosphorus Magnesium Ferritin AST 49 H Lactate Dehydrogenase C-Reactive Protein Total Protein 8.3 H Albumin 3.0 L TSH Arterial Blood Glucose 310 H Arterial Blood Ionized Calcium Ur Specific [place] Urine Creatinine Coronavirus (PCR) 09/10/20 09/10/20 09/11/20 21:34 23:33 05:56 WBC Hgb Hct Plt Count Lymph % (Auto) [place] % (Auto) Lymph # (Auto) Seg Neutrophils % Seg Neuts % (Manual) Lymphocytes % (Manual) Seg Neutrophils # Seg Neutrophils # Man Lymphocytes # (Manual) PT INR D-Dimer Heparin Anti-Xa Level ABG pH POC ABG pCO2 POC ABG pO2 ABG Hemoglobin ABG Oxyhemoglobin ABG Sodium 135.9 L ABG Potassium ABG Chloride ABG Glucose 341 H Carboxyhemoglobin Sodium 133 L Potassium Chloride 94.2 L Carbon Dioxide BUN 54 H Creatinine 1.6 H Glucose 318 H POC Glucose 306 H Calcium Phosphorus Magnesium Ferritin AST 46 H Lactate Dehydrogenase C-Reactive Protein Total Protein Albumin 2.7 L TSH Arterial Blood Glucose 341 H Arterial Blood Ionized Calcium 4.5 L Ur Specific [place] Urine Creatinine Coronavirus (PCR) 09/11/20 09/11/20 09/11/20 05:56 07:22 09:00 WBC Hgb Hct Plt Count Lymph % (Auto) [place] % (Auto) Lymph # (Auto) Seg Neutrophils % Seg Neuts % (Manual) Lymphocytes % (Manual) Seg Neutrophils # Seg Neutrophils # Man Lymphocytes # (Manual) PT INR D-Dimer Heparin Anti-Xa Level ABG pH POC ABG pCO2 POC ABG pO2 80.1 L ABG Hemoglobin ABG Oxyhemoglobin ABG Sodium 134.5 L ABG Potassium ABG Chloride ABG Glucose 334 H Carboxyhemoglobin Sodium Potassium Chloride Carbon Dioxide BUN Creatinine Glucose POC Glucose 305 H Calcium Phosphorus Magnesium Ferritin AST Lactate Dehydrogenase 755 H C-Reactive Protein 5.50 H Total Protein Albumin TSH Arterial Blood Glucose 334 H Arterial Blood Ionized Calcium Ur Specific [place] Urine Creatinine Coronavirus (PCR) 09/11/20 09/11/20 09/11/20 11:33 18:17 19:00 WBC Hgb Hct Plt Count Lymph % (Auto) [place] % (Auto) Lymph # (Auto) Seg Neutrophils % Seg Neuts % (Manual) Lymphocytes % (Manual) Seg Neutrophils # Seg Neutrophils # Man Lymphocytes # (Manual) PT INR D-Dimer Heparin Anti-Xa Level ABG pH POC ABG pCO2 POC ABG pO2 146.4 H ABG Hemoglobin ABG Oxyhemoglobin 98.3 H ABG Sodium ABG Potassium ABG Chloride ABG Glucose 267 H Carboxyhemoglobin 0.4 L Sodium Potassium Chloride Carbon Dioxide BUN Creatinine Glucose POC Glucose 304 H 296 H Calcium Phosphorus Magnesium Ferritin AST Lactate Dehydrogenase C-Reactive Protein Total Protein Albumin TSH Arterial Blood Glucose 267 H Arterial Blood Ionized Calcium Ur Specific [place] Urine Creatinine Coronavirus (PCR) 09/11/20 09/11/20 09/11/20 20:30 22:23 Unknown WBC Hgb Hct Plt Count Lymph % (Auto) [place] % (Auto) Lymph # (Auto) Seg Neutrophils % Seg Neuts % (Manual) Lymphocytes % (Manual) Seg Neutrophils # Seg Neutrophils # Man Lymphocytes # (Manual) PT INR D-Dimer 1324.85 H Heparin Anti-Xa Level ABG pH POC ABG pCO2 POC ABG pO2 ABG Hemoglobin ABG Oxyhemoglobin ABG Sodium ABG Potassium ABG Chloride ABG Glucose Carboxyhemoglobin Sodium Potassium Chloride Carbon Dioxide BUN Creatinine Glucose POC Glucose 268 H Calcium Phosphorus Magnesium Ferritin 1434.0 H AST Lactate Dehydrogenase C-Reactive Protein Total Protein Albumin TSH Arterial Blood Glucose Arterial Blood Ionized Calcium Ur Specific [place] Urine Creatinine Coronavirus (PCR) 09/11/20 09/12/20 09/12/20 Unknown 04:00 05:30 WBC Hgb Hct Plt Count Lymph % (Auto) [place] % (Auto) Lymph # (Auto) Seg Neutrophils % Seg Neuts % (Manual) Lymphocytes % (Manual) Seg Neutrophils # Seg Neutrophils # Man Lymphocytes # (Manual) PT INR D-Dimer Heparin Anti-Xa Level ABG pH POC ABG pCO2 POC ABG pO2 190.7 H ABG Hemoglobin 17.7 H ABG Oxyhemoglobin 98.9 H ABG Sodium ABG Potassium ABG Chloride ABG Glucose 322 H Carboxyhemoglobin 0.2 L Sodium Potassium Chloride Carbon Dioxide BUN 58 H Creatinine 1.8 H Glucose 279 H POC Glucose 313 H Calcium 7.9 L Phosphorus Magnesium Ferritin AST Lactate Dehydrogenase C-Reactive Protein Total Protein Albumin TSH Arterial Blood Glucose 322 H Arterial Blood Ionized Calcium Ur Specific [place] Urine Creatinine Coronavirus (PCR) 09/12/20 09/12/20 09/12/20 08:43 11:58 13:30 WBC Hgb Hct Plt Count Lymph % (Auto) [place] % (Auto) Lymph # (Auto) Seg Neutrophils % Seg Neuts % (Manual) Lymphocytes % (Manual) Seg Neutrophils # Seg Neutrophils # Man Lymphocytes # (Manual) PT INR D-Dimer Heparin Anti-Xa Level ABG pH POC ABG pCO2 POC ABG pO2 ABG Hemoglobin ABG Oxyhemoglobin ABG Sodium ABG Potassium ABG Chloride ABG Glucose Carboxyhemoglobin Sodium Potassium Chloride Carbon Dioxide BUN 51 H Creatinine 1.4 H Glucose 317 H POC Glucose 329 H Calcium Phosphorus Magnesium Ferritin AST Lactate Dehydrogenase C-Reactive Protein Total Protein Albumin 3.0 L TSH Arterial Blood Glucose Arterial Blood Ionized Calcium Ur Specific [place] Urine Creatinine 43.2 H Coronavirus (PCR) 09/12/20 09/12/20 09/12/20 17:17 17:17 17:55 WBC Hgb 14.5 H Hct 43.5 H Plt Count Lymph % (Auto) [place] % (Auto) Lymph # (Auto) Seg Neutrophils % Seg Neuts % (Manual) 96.0 H Lymphocytes % (Manual) 1.0 L Seg Neutrophils # Seg Neutrophils # Man 9.8 H Lymphocytes # (Manual) 0.1 L PT INR D-Dimer Heparin Anti-Xa Level ABG pH POC ABG pCO2 POC ABG pO2 ABG Hemoglobin ABG Oxyhemoglobin ABG Sodium ABG Potassium ABG Chloride ABG Glucose Carboxyhemoglobin Sodium Potassium Chloride Carbon Dioxide BUN Creatinine Glucose POC Glucose 425 H Calcium Phosphorus Magnesium Ferritin AST Lactate Dehydrogenase C-Reactive Protein Total Protein Albumin TSH 0.067 L Arterial Blood Glucose Arterial Blood Ionized Calcium Ur Specific [place] Urine Creatinine Coronavirus (PCR) 09/12/20 09/13/20 09/13/20 23:19 03:32 04:22 WBC Hgb Hct Plt Count Lymph % (Auto) [place] % (Auto) Lymph # (Auto) Seg Neutrophils % Seg Neuts % (Manual) Lymphocytes % (Manual) Seg Neutrophils # Seg Neutrophils # Man Lymphocytes # (Manual) PT INR D-Dimer Heparin Anti-Xa Level ABG pH 7.276 L 7.275 L POC ABG pCO2 54.0 H 54.7 H POC ABG pO2 46.6 L 47.1 L ABG Hemoglobin ABG Oxyhemoglobin 78.9 L 79.4 L ABG Sodium ABG Potassium ABG Chloride ABG Glucose 260 H 261 H Carboxyhemoglobin Sodium Potassium Chloride Carbon Dioxide BUN Creatinine Glucose POC Glucose 348 H Calcium Phosphorus Magnesium Ferritin AST Lactate Dehydrogenase C-Reactive Protein Total Protein Albumin TSH Arterial Blood Glucose 260 H 261 H Arterial Blood Ionized Calcium Ur Specific [place] Urine Creatinine Coronavirus (PCR) 09/13/20 09/13/20 09/13/20 04:52 11:53 17:13 WBC Hgb Hct Plt Count Lymph % (Auto) [place] % (Auto) Lymph # (Auto) Seg Neutrophils % Seg Neuts % (Manual) Lymphocytes % (Manual) Seg Neutrophils # Seg Neutrophils # Man Lymphocytes # (Manual) PT INR D-Dimer Heparin Anti-Xa Level ABG pH POC ABG pCO2 POC ABG pO2 ABG Hemoglobin ABG Oxyhemoglobin ABG Sodium ABG Potassium ABG Chloride ABG Glucose Carboxyhemoglobin Sodium Potassium Chloride Carbon Dioxide BUN Creatinine Glucose POC Glucose 229 H 302 H 356 H Calcium Phosphorus Magnesium Ferritin AST Lactate Dehydrogenase C-Reactive Protein Total Protein Albumin TSH Arterial Blood Glucose Arterial Blood Ionized Calcium Ur Specific [place] Urine Creatinine Coronavirus (PCR) 09/13/20 09/13/20 09/13/20 23:46 Unknown Unknown WBC Hgb Hct Plt Count 135 L Lymph % (Auto) [place] % (Auto) Lymph # (Auto) Seg Neutrophils % Seg Neuts % (Manual) Lymphocytes % (Manual) Seg Neutrophils # Seg Neutrophils # Man Lymphocytes # (Manual) PT INR D-Dimer Heparin Anti-Xa Level ABG pH POC ABG pCO2 POC ABG pO2 ABG Hemoglobin ABG Oxyhemoglobin ABG Sodium ABG Potassium ABG Chloride ABG Glucose Carboxyhemoglobin Sodium Potassium Chloride Carbon Dioxide BUN 54 H Creatinine 1.6 H Glucose 255 H POC Glucose 263 H Calcium Phosphorus Magnesium Ferritin AST Lactate Dehydrogenase C-Reactive Protein Total Protein Albumin 2.8 L TSH Arterial Blood Glucose Arterial Blood Ionized Calcium Ur Specific [place] Urine Creatinine Coronavirus (PCR) 09/14/20 09/14/20 09/14/20 05:46 10:53 10:53 WBC Hgb Hct Plt Count Lymph % (Auto) [place] % (Auto) Lymph # (Auto) Seg Neutrophils % Seg Neuts % (Manual) Lymphocytes % (Manual) Seg Neutrophils # Seg Neutrophils # Man Lymphocytes # (Manual) PT INR D-Dimer > 05470 H Heparin Anti-Xa Level ABG pH POC ABG pCO2 POC ABG pO2 ABG Hemoglobin ABG Oxyhemoglobin ABG Sodium ABG Potassium ABG Chloride ABG Glucose Carboxyhemoglobin Sodium Potassium Chloride Carbon Dioxide BUN 71 H Creatinine 2.8 H D Glucose 167 H POC Glucose 226 H Calcium Phosphorus 4.90 H D Magnesium 2.40 H Ferritin AST Lactate Dehydrogenase C-Reactive Protein 5.40 H Total Protein 5.9 L Albumin 2.7 L TSH Arterial Blood Glucose Arterial Blood Ionized Calcium Ur Specific [place] Urine Creatinine Coronavirus (PCR) 09/14/20 09/14/20 09/14/20 11:33 13:45 17:29 WBC Hgb Hct Plt Count Lymph % (Auto) [place] % (Auto) Lymph # (Auto) Seg Neutrophils % Seg Neuts % (Manual) Lymphocytes % (Manual) Seg Neutrophils # Seg Neutrophils # Man Lymphocytes # (Manual) PT INR D-Dimer Heparin Anti-Xa Level ABG pH 7.225 L POC ABG pCO2 60.1 H POC ABG pO2 ABG Hemoglobin ABG Oxyhemoglobin ABG Sodium ABG Potassium 5.2 H ABG Chloride 109.0 H ABG Glucose 205 H Carboxyhemoglobin Sodium Potassium Chloride Carbon Dioxide BUN Creatinine Glucose POC Glucose 166 H 202 H Calcium Phosphorus Magnesium Ferritin AST Lactate Dehydrogenase C-Reactive Protein Total Protein Albumin TSH Arterial Blood Glucose 205 H Arterial Blood Ionized Calcium Ur Specific [place] Urine Creatinine Coronavirus (PCR) 09/15/20 09/15/20 09/15/20 00:19 03:10 03:10 WBC 13.5 H Hgb Hct Plt Count 77 L Lymph % (Auto) 3.9 L [place] % (Auto) Lymph # (Auto) 0.5 L Seg Neutrophils % 89.9 H Seg Neuts % (Manual) Lymphocytes % (Manual) Seg Neutrophils # 12.1 H Seg Neutrophils # Man Lymphocytes # (Manual) PT INR D-Dimer Heparin Anti-Xa Level ABG pH POC ABG pCO2 POC ABG pO2 ABG Hemoglobin ABG Oxyhemoglobin ABG Sodium ABG Potassium ABG Chloride ABG Glucose Carboxyhemoglobin Sodium Potassium 5.7 H Chloride 107.7 H Carbon Dioxide 21 L BUN 85 H Creatinine 4.1 H Glucose 166 H POC Glucose 174 H Calcium Phosphorus Magnesium Ferritin AST Lactate Dehydrogenase C-Reactive Protein Total Protein 5.9 L Albumin 2.3 L TSH Arterial Blood Glucose Arterial Blood Ionized Calcium Ur Specific [place] Urine Creatinine Coronavirus (PCR) 09/15/20 09/15/20 09/15/20 03:10 03:10 05:34 WBC Hgb Hct Plt Count Lymph % (Auto) [place] % (Auto) Lymph # (Auto) Seg Neutrophils % Seg Neuts % (Manual) Lymphocytes % (Manual) Seg Neutrophils # Seg Neutrophils # Man Lymphocytes # (Manual) PT INR D-Dimer > 93874 H Heparin Anti-Xa Level ABG pH POC ABG pCO2 POC ABG pO2 ABG Hemoglobin ABG Oxyhemoglobin ABG Sodium ABG Potassium ABG Chloride ABG Glucose Carboxyhemoglobin Sodium Potassium Chloride Carbon Dioxide BUN Creatinine Glucose POC Glucose 146 H Calcium Phosphorus 6.50 H D Magnesium 2.40 H Ferritin AST Lactate Dehydrogenase C-Reactive Protein 3.90 H Total Protein Albumin TSH Arterial Blood Glucose Arterial Blood Ionized Calcium Ur Specific [place] Urine Creatinine Coronavirus (PCR) 09/15/20 09/15/20 09/15/20 06:12 12:30 13:25 WBC Hgb Hct Plt Count Lymph % (Auto) [place] % (Auto) Lymph # (Auto) Seg Neutrophils % Seg Neuts % (Manual) Lymphocytes % (Manual) Seg Neutrophils # Seg Neutrophils # Man Lymphocytes # (Manual) PT INR D-Dimer Heparin Anti-Xa Level ABG pH 7.178 L POC ABG pCO2 58.7 H POC ABG pO2 65.2 L ABG Hemoglobin ABG Oxyhemoglobin 90.5 L ABG Sodium ABG Potassium 5.1 H ABG Chloride 110.0 H ABG Glucose 173 H Carboxyhemoglobin Sodium Potassium 5.5 H 5.4 H Chloride 108.0 H Carbon Dioxide BUN 87 H 89 H Creatinine 4.3 H 4.2 H Glucose 151 H 180 H POC Glucose Calcium 8.2 L Phosphorus 6.70 H Magnesium Ferritin AST Lactate Dehydrogenase C-Reactive Protein Total Protein Albumin TSH Arterial Blood Glucose 173 H Arterial Blood Ionized Calcium Ur Specific [place] Urine Creatinine Coronavirus (PCR) 09/15/20 09/15/20 09/15/20 13:33 14:00 14:00 WBC Hgb Hct Plt Count 86 L Lymph % (Auto) [place] % (Auto) Lymph # (Auto) Seg Neutrophils % Seg Neuts % (Manual) Lymphocytes % (Manual) Seg Neutrophils # Seg Neutrophils # Man Lymphocytes # (Manual) PT 18.8 H INR 1.52 H D-Dimer Heparin Anti-Xa Level ABG pH POC ABG pCO2 POC ABG pO2 ABG Hemoglobin ABG Oxyhemoglobin ABG Sodium ABG Potassium ABG Chloride ABG Glucose Carboxyhemoglobin Sodium Potassium Chloride Carbon Dioxide BUN Creatinine Glucose POC Glucose 146 H Calcium Phosphorus Magnesium Ferritin AST Lactate Dehydrogenase C-Reactive Protein Total Protein Albumin TSH Arterial Blood Glucose Arterial Blood Ionized Calcium Ur Specific [place] Urine Creatinine Coronavirus (PCR) 09/15/20 09/15/20 09/15/20 18:02 21:10 23:04 WBC Hgb Hct Plt Count Lymph % (Auto) [place] % (Auto) Lymph # (Auto) Seg Neutrophils % Seg Neuts % (Manual) Lymphocytes % (Manual) Seg Neutrophils # Seg Neutrophils # Man Lymphocytes # (Manual) PT INR D-Dimer Heparin Anti-Xa Level 0.78 H ABG pH POC ABG pCO2 POC ABG pO2 ABG Hemoglobin ABG Oxyhemoglobin ABG Sodium ABG Potassium ABG Chloride ABG Glucose Carboxyhemoglobin Sodium Potassium Chloride Carbon Dioxide BUN Creatinine Glucose POC Glucose 241 H 296 H Calcium Phosphorus Magnesium Ferritin AST Lactate Dehydrogenase C-Reactive Protein Total Protein Albumin TSH Arterial Blood Glucose Arterial Blood Ionized Calcium Ur Specific [place] Urine Creatinine Coronavirus (PCR) 09/15/20 09/16/20 09/16/20 23:33 02:45 04:00 WBC 22.7 H Hgb Hct Plt Count 105 L Lymph % (Auto) [place] % (Auto) Lymph # (Auto) Seg Neutrophils % Seg Neuts % (Manual) Lymphocytes % (Manual) Seg Neutrophils # Seg Neutrophils # Man Lymphocytes # (Manual) PT INR D-Dimer Heparin Anti-Xa Level ABG pH 7.171 L POC ABG pCO2 57.1 H POC ABG pO2 144.1 H ABG Hemoglobin ABG Oxyhemoglobin ABG Sodium ABG Potassium 5.0 H ABG Chloride ABG Glucose 273 H Carboxyhemoglobin Sodium Potassium Chloride Carbon Dioxide BUN Creatinine Glucose POC Glucose 298 H Calcium Phosphorus Magnesium Ferritin AST Lactate Dehydrogenase C-Reactive Protein Total Protein Albumin TSH Arterial Blood Glucose 273 H Arterial Blood Ionized Calcium 4.5 L Ur Specific [place] Urine Creatinine Coronavirus (PCR) 09/16/20 09/16/20 04:20 05:10 WBC Hgb Hct Plt Count Lymph % (Auto) [place] % (Auto) Lymph # (Auto) Seg Neutrophils % Seg Neuts % (Manual) Lymphocytes % (Manual) Seg Neutrophils # Seg Neutrophils # Man Lymphocytes # (Manual) PT INR D-Dimer Heparin Anti-Xa Level ABG pH POC ABG pCO2 POC ABG pO2 ABG Hemoglobin ABG Oxyhemoglobin ABG Sodium ABG Potassium ABG Chloride ABG Glucose Carboxyhemoglobin Sodium Potassium 5.4 H Chloride Carbon Dioxide BUN 75 H Creatinine 3.7 H Glucose 265 H POC Glucose 269 H Calcium Phosphorus Magnesium Ferritin AST 46 H Lactate Dehydrogenase C-Reactive Protein Total Protein 6.2 L Albumin 2.9 L TSH Arterial Blood Glucose Arterial Blood Ionized Calcium Ur Specific [place] Urine Creatinine Coronavirus (PCR) Allied health notes reviewed: nursing
[2020-09-16] MEDS: IPRATROPIUM/ALBUTEROL SULFATE 3 ML AMPUL.NEB IH SCH ×2 (09:10→21:01)
[2020-09-16] MEDS: HEPARIN/ 0.45% NACL DRIP 25,000 UNIT/500 ML BAG IV SCH (09:32)
[2020-09-16] MEDS: VASOPRESSIN 20 UNIT in SODIUM CHLORIDE 0.9% 100 ML IV SCH (09:34)
[2020-09-16] MEDS: dexAMETHasone 4 MG/ML VIAL IV SCH (09:37)
[2020-09-16] MEDS: INSULIN GLARGINE 100 UNITS/ML SUB-Q SCH ×2 (09:37→11:20)
[2020-09-16] MEDS: FAMOTIDINE 20 MG/2 ML INJ IV SCH ×2 (09:38→22:28)
[2020-09-16] MEDS: CHOLECALCIFEROL (VIT D3) 1000 UNIT (25 mcg) TAB PO SCH (09:39)
[2020-09-16] MEDS: ASCORBIC ACID 500 MG TAB PO SCH ×2 (09:39→22:28)
[2020-09-16] MEDS: ZINC SULFATE 220 MG CAP PO SCH ×2 (09:39→22:28)
--- NOTE | 2020-09-16 09:56 | Progress Note ---
Assessment and Plan Impression * Oliguric acute kidney injury secondary to ATN * Acute hypoxic/hypercapnic respirtaory failure secondary to COVID 19 PNA * COVID 19 PNA * Sepsis * Hyperkalemia * Azotemia * Respiratory acidosis * Type II DM Plan: * Patient is s/p first HD treatment yesterday * HD again today for solute clearance and correction of electrolytes. * UF as tolerated * Dose medications for renal function * Acidemia noted - primarily respiratory. Vent management per CCM * ID following * Pressors prn to maintain MAP >65 * AM labs Subjective Date of service: 09/16/20 Principal diagnosis: Ac hypoxemic resp failure; ARDS; COVID-19 infxn; PNA; DM II; Obesity Interval history: Patient is s/p prone position. Currently on FiO2 100% - sats 70s. She remains on Levo/Vaso Objective - Vital Signs Vital signs: Vital Signs - 12hr 09/15/20 09/15/20 09/15/20 21:56 22:00 22:06 Temperature Pulse Rate 93 H 94 H 92 H Respiratory 31 H 31 H 30 H Rate Blood Pressure 144/72 103/59 103/59 O2 Sat by Pulse 88 89 89 Oximetry O2 Sat by Pulse Oximetry [ Anterior Bilateral Throughout] O2 Sat by Pulse Oximetry [ Posterior Bilateral Throughout] 09/15/20 09/15/20 09/15/20 22:10 22:15 22:20 Temperature Pulse Rate 91 H 89 99 H Respiratory 31 H 30 H 31 H Rate Blood Pressure 103/59 115/64 115/64 O2 Sat by Pulse 89 89 Oximetry O2 Sat by Pulse Oximetry [ Anterior Bilateral Throughout] O2 Sat by Pulse Oximetry [ Posterior Bilateral Throughout] 09/15/20 09/15/20 09/15/20 22:26 22:30 22:34 Temperature 99.0 F Pulse Rate 100 H 105 H 110 H Respiratory 31 H 30 H 26 H Rate Blood Pressure 115/64 76/50 79/46 O2 Sat by Pulse 91 98 Oximetry O2 Sat by Pulse 88 Oximetry [ Anterior Bilateral Throughout] O2 Sat by Pulse 88 Oximetry [ Posterior Bilateral Throughout] 09/15/20 09/15/20 09/15/20 22:36 22:40 22:45 Temperature Pulse Rate 110 H 65 65 Respiratory 30 H 31 H 32 H Rate Blood Pressure 76/50 163/75 177/76 O2 Sat by Pulse 97 89 88 Oximetry O2 Sat by Pulse Oximetry [ Anterior Bilateral Throughout] O2 Sat by Pulse Oximetry [ Posterior Bilateral Throughout] 09/15/20 09/15/20 09/15/20 22:50 22:56 23:00 Temperature Pulse Rate 85 84 83 Respiratory 30 H 30 H 21 Rate Blood Pressure 177/76 177/76 177/76 O2 Sat by Pulse 91 90 92 Oximetry O2 Sat by Pulse Oximetry [ Anterior Bilateral Throughout] O2 Sat by Pulse Oximetry [ Posterior Bilateral Throughout] 09/15/20 09/15/20 09/15/20 23:06 23:10 23:15 Temperature Pulse Rate 80 83 84 Respiratory 30 H 30 H 30 H Rate Blood Pressure 177/76 177/76 116/58 O2 Sat by Pulse 91 93 90 Oximetry O2 Sat by Pulse Oximetry [ Anterior Bilateral Throughout] O2 Sat by Pulse Oximetry [ Posterior Bilateral Throughout] 09/15/20 09/15/20 09/15/20 23:20 23:26 23:30 Temperature Pulse Rate 83 89 81 Respiratory 30 H 31 H 31 H Rate Blood Pressure 116/58 116/58 133/64 O2 Sat by Pulse 89 91 89 Oximetry O2 Sat by Pulse Oximetry [ Anterior Bilateral Throughout] O2 Sat by Pulse Oximetry [ Posterior Bilateral Throughout] 09/15/20 09/15/20 09/15/20 23:31 23:36 23:40 Temperature Pulse Rate 82 80 83 Respiratory 30 H 31 H Rate Blood Pressure 156/60 133/64 133/64 O2 Sat by Pulse 90 90 92 Oximetry O2 Sat by Pulse Oximetry [ Anterior Bilateral Throughout] O2 Sat by Pulse Oximetry [ Posterior Bilateral Throughout] 09/15/20 09/15/20 09/15/20 23:43 23:45 23:50 Temperature 99.6 F Pulse Rate 80 80 Respiratory 30 H 30 H Rate Blood Pressure 139/63 139/63 O2 Sat by Pulse 90 92 Oximetry O2 Sat by Pulse Oximetry [ Anterior Bilateral Throughout] O2 Sat by Pulse Oximetry [ Posterior Bilateral Throughout] 09/15/20 09/16/20 09/16/20 23:56 00:00 00:06 Temperature Pulse Rate 74 82 79 Respiratory 24 30 H 30 H Rate Blood Pressure 139/63 147/63 147/63 O2 Sat by Pulse 92 91 91 Oximetry O2 Sat by Pulse Oximetry [ Anterior Bilateral Throughout] O2 Sat by Pulse Oximetry [ Posterior Bilateral Throughout] 07/09/16/20 09/16/20 00:10 00:15 00:20 Temperature Pulse Rate 78 77 78 Respiratory 30 H 30 H 30 H Rate Blood Pressure 147/63 142/65 142/65 O2 Sat by Pulse 92 90 92 Oximetry O2 Sat by Pulse Oximetry [ Anterior Bilateral Throughout] O2 Sat by Pulse Oximetry [ Posterior Bilateral Throughout] 09/16/20 09/16/20 09/16/20 00:26 00:30 00:36 Temperature Pulse Rate 76 78 77 Respiratory 30 H 30 H 30 H Rate Blood Pressure 142/65 146/66 146/66 O2 Sat by Pulse 92 90 92 Oximetry O2 Sat by Pulse Oximetry [ Anterior Bilateral Throughout] O2 Sat by Pulse Oximetry [ Posterior Bilateral Throughout] 09/16/20 09/16/20 09/16/20 00:40 00:45 00:50 Temperature Pulse Rate 76 75 75 Respiratory 30 H 30 H 30 H Rate Blood Pressure 146/66 138/68 138/68 O2 Sat by Pulse 92 90 92 Oximetry O2 Sat by Pulse Oximetry [ Anterior Bilateral Throughout] O2 Sat by Pulse Oximetry [ Posterior Bilateral Throughout] 09/16/20 09/16/20 09/16/20 00:56 01:00 01:06 Temperature Pulse Rate 79 75 Respiratory 30 H 30 H Rate Blood Pressure 138/68 137/57 137/57 O2 Sat by Pulse 91 89 82 L Oximetry O2 Sat by Pulse Oximetry [ Anterior Bilateral Throughout] O2 Sat by Pulse Oximetry [ Posterior Bilateral Throughout] 09/16/20 09/16/20 09/16/20 01:10 01:16 01:20 Temperature Pulse Rate 92 H Respiratory 11 L Rate Blood Pressure 137/57 137/57 137/57 O2 Sat by Pulse Oximetry O2 Sat by Pulse Oximetry [ Anterior Bilateral Throughout] O2 Sat by Pulse Oximetry [ Posterior Bilateral Throughout] 09/16/20 09/16/20 09/16/20 01:26 01:30 01:36 Temperature Pulse Rate 98 H Respiratory 30 H 24 16 Rate Blood Pressure 74/30 122/46 114/34 O2 Sat by Pulse 91 93 95 Oximetry O2 Sat by Pulse Oximetry [ Anterior Bilateral Throughout] O2 Sat by Pulse Oximetry [ Posterior Bilateral Throughout] 09/16/20 09/16/20 09/16/20 01:40 01:45 01:50 Temperature Pulse Rate 87 93 H Respiratory 22 18 31 H Rate Blood Pressure 114/34 162/60 162/60 O2 Sat by Pulse 96 95 96 Oximetry O2 Sat by Pulse Oximetry [ Anterior Bilateral Throughout] O2 Sat by Pulse Oximetry [ Posterior Bilateral Throughout] 09/16/20 09/16/20 09/16/20 01:56 02:00 02:06 Temperature Pulse Rate 90 88 88 Respiratory 21 20 31 H Rate Blood Pressure 162/60 140/52 114/34 O2 Sat by Pulse 96 94 96 Oximetry O2 Sat by Pulse Oximetry [ Anterior Bilateral Throughout] O2 Sat by Pulse Oximetry [ Posterior Bilateral Throughout] 09/16/20 09/16/20 09/16/20 02:10 02:15 02:20 Temperature Pulse Rate 87 86 88 Respiratory 24 25 H 31 H Rate Blood Pressure 114/34 139/50 139/50 O2 Sat by Pulse 96 95 95 Oximetry O2 Sat by Pulse Oximetry [ Anterior Bilateral Throughout] O2 Sat by Pulse Oximetry [ Posterior Bilateral Throughout] 09/16/20 09/16/20 09/16/20 02:26 02:30 02:36 Temperature Pulse Rate 91 H 86 86 Respiratory 31 H 30 H 27 H Rate Blood Pressure 139/50 105/45 105/45 O2 Sat by Pulse 96 95 97 Oximetry O2 Sat by Pulse Oximetry [ Anterior Bilateral Throughout] O2 Sat by Pulse Oximetry [ Posterior Bilateral Throughout] 09/16/20 09/16/20 09/16/20 02:40 02:45 02:50 Temperature Pulse Rate 88 88 78 Respiratory 31 H 31 H 31 H Rate Blood Pressure 105/45 128/46 128/46 O2 Sat by Pulse 97 95 96 Oximetry O2 Sat by Pulse Oximetry [ Anterior Bilateral Throughout] O2 Sat by Pulse Oximetry [ Posterior Bilateral Throughout] 09/16/20 09/16/20 09/16/20 02:56 03:00 03:06 Temperature Pulse Rate 87 84 87 Respiratory 34 H 31 H 30 H Rate Blood Pressure 128/46 118/42 118/42 O2 Sat by Pulse 98 97 99 Oximetry O2 Sat by Pulse Oximetry [ Anterior Bilateral Throughout] O2 Sat by Pulse Oximetry [ Posterior Bilateral Throughout] 09/16/20 09/16/20 09/16/20 03:10 03:15 03:20 Temperature Pulse Rate 86 83 93 H Respiratory 31 H 32 H 31 H Rate Blood Pressure 118/42 114/48 101/42 O2 Sat by Pulse 98 96 98 Oximetry O2 Sat by Pulse Oximetry [ Anterior Bilateral Throughout] O2 Sat by Pulse Oximetry [ Posterior Bilateral Throughout] 09/16/20 09/16/20 09/16/20 03:26 03:30 03:36 Temperature Pulse Rate 104 H 108 H 108 H Respiratory 31 H 33 H 32 H Rate Blood Pressure 101/42 101/42 71/43 O2 Sat by Pulse 98 98 Oximetry O2 Sat by Pulse Oximetry [ Anterior Bilateral Throughout] O2 Sat by Pulse Oximetry [ Posterior Bilateral Throughout] 09/16/20 09/16/20 09/16/20 03:40 03:45 03:48 Temperature 100.2 F H Pulse Rate 109 H 108 H Respiratory 33 H 33 H Rate Blood Pressure 71/43 80/45 O2 Sat by Pulse 98 Oximetry O2 Sat by Pulse Oximetry [ Anterior Bilateral Throughout] O2 Sat by Pulse Oximetry [ Posterior Bilateral Throughout] 09/16/20 09/16/20 09/16/20 03:50 03:56 04:00 Temperature Pulse Rate 108 H 109 H 107 H Respiratory 33 H 31 H 31 H Rate Blood Pressure 80/45 80/45 77/38 O2 Sat by Pulse 99 98 97 Oximetry O2 Sat by Pulse Oximetry [ Anterior Bilateral Throughout] O2 Sat by Pulse Oximetry [ Posterior Bilateral Throughout] 09/16/20 09/16/20 09/16/20 04:06 04:10 04:16 Temperature Pulse Rate 106 H 96 H 89 Respiratory 33 H 32 H 32 H Rate Blood Pressure 78/49 95/42 102/48 O2 Sat by Pulse 100 99 97 Oximetry O2 Sat by Pulse Oximetry [ Anterior Bilateral Throughout] O2 Sat by Pulse Oximetry [ Posterior Bilateral Throughout] 09/16/20 09/16/20 09/16/20 04:20 04:26 04:30 Temperature Pulse Rate 90 89 88 Respiratory 30 H 31 H 31 H Rate Blood Pressure 102/48 102/48 109/46 O2 Sat by Pulse 99 99 97 Oximetry O2 Sat by Pulse Oximetry [ Anterior Bilateral Throughout] O2 Sat by Pulse Oximetry [ Posterior Bilateral Throughout] 09/16/20 09/16/20 09/16/20 04:36 04:40 04:46 Temperature Pulse Rate 85 86 80 Respiratory 31 H 31 H 32 H Rate Blood Pressure 109/46 109/46 123/46 O2 Sat by Pulse 99 99 96 Oximetry O2 Sat by Pulse Oximetry [ Anterior Bilateral Throughout] O2 Sat by Pulse Oximetry [ Posterior Bilateral Throughout] 09/16/20 09/16/20 09/16/20 04:50 04:56 04:58 Temperature Pulse Rate 77 74 77 Respiratory 31 H 31 H Rate Blood Pressure 123/46 123/46 134/55 O2 Sat by Pulse 99 99 95 Oximetry O2 Sat by Pulse Oximetry [ Anterior Bilateral Throughout] O2 Sat by Pulse Oximetry [ Posterior Bilateral Throughout] 09/16/20 09/16/20 09/16/20 05:00 05:06 05:10 Temperature Pulse Rate 75 77 74 Respiratory 31 H 30 H 30 H Rate Blood Pressure 123/55 123/55 123/46 O2 Sat by Pulse 96 95 95 Oximetry O2 Sat by Pulse Oximetry [ Anterior Bilateral Throughout] O2 Sat by Pulse Oximetry [ Posterior Bilateral Throughout] 09/16/20 09/16/20 09/16/20 05:15 05:20 05:26 Temperature Pulse Rate 75 78 69 Respiratory 31 H 30 H 30 H Rate Blood Pressure 121/48 121/48 121/48 O2 Sat by Pulse 93 94 94 Oximetry O2 Sat by Pulse Oximetry [ Anterior Bilateral Throughout] O2 Sat by Pulse Oximetry [ Posterior Bilateral Throughout] 09/16/20 09/16/20 09/16/20 05:30 05:36 05:40 Temperature Pulse Rate 79 80 77 Respiratory 30 H 30 H 31 H Rate Blood Pressure 118/42 118/42 121/48 O2 Sat by Pulse 94 95 96 Oximetry O2 Sat by Pulse Oximetry [ Anterior Bilateral Throughout] O2 Sat by Pulse Oximetry [ Posterior Bilateral Throughout] 09/16/20 09/16/20 09/16/20 05:45 05:50 05:56 Temperature Pulse Rate 78 77 79 Respiratory 30 H 31 H 31 H Rate Blood Pressure 122/45 122/45 122/45 O2 Sat by Pulse 94 95 96 Oximetry O2 Sat by Pulse Oximetry [ Anterior Bilateral Throughout] O2 Sat by Pulse Oximetry [ Posterior Bilateral Throughout] 09/16/20 09/16/20 09/16/20 06:00 06:06 06:10 Temperature Pulse Rate 69 80 79 Respiratory 31 H 31 H 31 H Rate Blood Pressure 127/45 127/45 122/45 O2 Sat by Pulse 94 95 95 Oximetry O2 Sat by Pulse Oximetry [ Anterior Bilateral Throughout] O2 Sat by Pulse Oximetry [ Posterior Bilateral Throughout] 09/16/20 09/16/20 09/16/20 06:15 06:20 06:26 Temperature Pulse Rate 78 82 85 Respiratory 30 H 33 H 33 H Rate Blood Pressure 124/50 124/50 124/50 O2 Sat by Pulse 94 96 96 Oximetry O2 Sat by Pulse Oximetry [ Anterior Bilateral Throughout] O2 Sat by Pulse Oximetry [ Posterior Bilateral Throughout] 09/16/20 09/16/20 09/16/20 06:30 06:36 06:40 Temperature Pulse Rate 77 79 80 Respiratory 30 H 30 H 32 H Rate Blood Pressure 120/44 120/44 120/44 O2 Sat by Pulse 94 95 94 Oximetry O2 Sat by Pulse Oximetry [ Anterior Bilateral Throughout] O2 Sat by Pulse Oximetry [ Posterior Bilateral Throughout] 09/16/20 09/16/20 09/16/20 06:45 06:50 06:56 Temperature Pulse Rate 82 84 88 Respiratory 30 H 30 H 30 H Rate Blood Pressure 115/42 115/42 115/42 O2 Sat by Pulse 92 93 95 Oximetry O2 Sat by Pulse Oximetry [ Anterior Bilateral Throughout] O2 Sat by Pulse Oximetry [ Posterior Bilateral Throughout] 09/16/20 09/16/20 09/16/20 07:00 07:06 07:10 Temperature Pulse Rate 81 81 80 Respiratory 30 H 30 H 30 H Rate Blood Pressure 123/46 123/46 123/46 O2 Sat by Pulse 93 95 95 Oximetry O2 Sat by Pulse Oximetry [ Anterior Bilateral Throughout] O2 Sat by Pulse Oximetry [ Posterior Bilateral Throughout] 09/16/20 09/16/20 09/16/20 07:15 07:20 07:26 Temperature Pulse Rate 77 85 101 H Respiratory 30 H 31 H 31 H Rate Blood Pressure 112/39 112/39 112/39 O2 Sat by Pulse 95 97 96 Oximetry O2 Sat by Pulse Oximetry [ Anterior Bilateral Throughout] O2 Sat by Pulse Oximetry [ Posterior Bilateral Throughout] 09/16/20 09/16/20 09/16/20 07:30 07:36 07:40 Temperature Pulse Rate 106 H 117 H 120 H Respiratory 33 H 32 H 33 H Rate Blood Pressure 112/39 71/31 71/31 O2 Sat by Pulse 97 98 Oximetry O2 Sat by Pulse Oximetry [ Anterior Bilateral Throughout] O2 Sat by Pulse Oximetry [ Posterior Bilateral Throughout] 09/16/20 09/16/20 07:45 08:00 Temperature 99.1 F Pulse Rate 119 H 78 Respiratory 30 H Rate Blood Pressure 71/35 128/52 O2 Sat by Pulse 96 95 Oximetry O2 Sat by Pulse Oximetry [ Anterior Bilateral Throughout] O2 Sat by Pulse Oximetry [ Posterior Bilateral Throughout] - General Appearance General appearance: well-developed, obese, intubated EENT: ATNC, other (ETT in place) Respiratory: Present: Decreased Breath Sounds Cardiology: regular, S1S2 Gastrointestinal: obese Integumentary: warm and dry Neurologic: other (sedated) - Lab 09/16/20 02:45 09/16/20 04:20 Most recent lab results ABG pH 7.171 (7.320-7.450) L 09/16/20 04:00 ABG O2 Saturation 98.8 (0-100) 09/16/20 04:00 Calcium 8.6 mg/dL (8.4-10.2) 09/16/20 04:20 Phosphorus 6.70 mg/dL (2.5-4.5) H 09/15/20 06:12 Magnesium 2.30 mg/dL (1.7-2.3) 09/15/20 06:12 Urine Creatinine 43.2 mg/dL (0.1-20.0) H 09/12/20 13:30 Urine Sodium 58 mmol/L 09/12/20 13:30 Medications & Allergies - Medications Allergies/Adverse Reactions: Allergies lisinopril Allergy (Severe, Verified 09/08/20 16:33) Angioedema Home Medications: Home Medications Medication Instructions Recorded Confirmed Last Taken Type Losartan 100 mg PO DAILY 09/09/20 09/09/20 09/08/20 08:00 History Metformin HCl 500 mg PO BID 09/09/20 09/09/20 09/08/20 History 500 carvediloL 3.125 mg PO BID 09/09/20 09/09/20 09/08/20 History glipiZIDE 10 mg PO AC 09/09/20 09/09/20 09/08/20 08:00 History Active Medications: Generic Name Dose Route Start Last Admin Trade Name Freq PRN Reason Stop Dose Admin Acetaminophen 650 mg 09/08/20 20:23 Acetaminophen 325 Mg Tab PO Q4H PRN Pain MILD(1-3)/Fever >100.5/CORTEZ Albuterol 2.5 mg 09/08/20 20:23 Albuterol 2.5 Mg/3 Ml Nebu IH Q4HRT PRN Shortness Of Breath Albuterol/Ipratropium 1 ampul 09/13/20 12:30 09/16/20 09:10 Ipratropium/Albuterol Sulfate 3 Ml Ampul.Neb IH 1 ampul BID ISIAH Administration Lipase/Protease/Amylase 1 each 09/11/20 11:45 Lipase 10,500/Protease 25,000/Amylase 43,750 (Units) Dr Cap FEEDTUBE PRN PRN For Clogged Feeding Tube Ascorbic Acid 500 mg 09/08/20 22:00 09/16/20 09:39 Ascorbic Acid 500 Mg Tab PO 500 mg BID ISIAH Administration Cholecalciferol 1,000 unit 09/09/20 10:00 09/16/20 09:39 Cholecalciferol (Vit D3) 1000 Unit (25 Mcg) Tab PO 1,000 unit QDAY ISIAH Administration Dexamethasone 8 mg 09/10/20 17:00 09/16/20 09:37 Dexamethasone 4 Mg/Ml Vial IV 09/19/20 10:01 8 mg DAILY ISIAH Administration Famotidine 10 mg 09/14/20 22:00 09/16/20 09:38 Famotidine 20 Mg/2 Ml Inj IV 10 mg BID ISIAH Administration Fentanyl 50 mcg 09/13/20 12:12 Fentanyl 100 Mcg/2 Ml Inj IV Q10MIN PRN ANALGESIA Guaifenesin 10 ml 09/09/20 16:01 09/10/20 05:14 Guaifenesin Dm 200/20 Mg Oral Liqd 10 Ml PO 10 ml Q4H PRN Administration Cough Heparin Sodium (Porcine) 5,000 unit 09/15/20 13:05 Heparin 10,000 Units/10 Ml Vial IV Q6H PRN Anti-Xa Assay < 0.1 units/ml Hydralazine HCl 10 mg 09/11/20 21:33 Hydralazine 20 Mg/1 Ml Inj IV Q4H PRN Hypertension Fentanyl Citrate 2,000 mcg in 100 mls @ 7.45 mls/hr 09/10/20 23:00 09/16/20 09:33 Fentanyl Drip Premix IV 4 mcg/kg/hr TITR ISIAH 29.8 mls/hr Administration Protocol 1 MCG/KG/HR Norepinephrine 4 mg in 250 mls @ 7.5 mls/hr 09/11/20 17:00 09/16/20 09:28 Levophed Drip 4 Mg/Ns 250 Ml IV 10 mcg/min TITR IISAH 37.5 mls/hr Administration Protocol 2 MCG/MIN Vasopressin 20 unit/ Sodium 101 mls @ 9.09 mls/hr 09/11/20 22:00 09/16/20 09:34 Chloride IV 0.03 units/min TITR ISIAH 9.09 mls/hr Administration Protocol 0.03 UNITS/MIN Midazolam HCl 100 mg/ Sodium 100 mls @ 1 mls/hr 09/12/20 17:30 09/16/20 04:03 Chloride IV 5 mg/hr TITR ISIAH 5 mls/hr Administration Protocol 1 MG/HR Propofol 1,000 mg in 100 mls @ 4.47 mls/hr 09/13/20 13:00 09/16/20 01:25 Diprivan 10 Mg/Ml IV 5 mcg/kg/min TITR ISIAH 4.47 mls/hr Titration Protocol 5 MCG/KG/MIN Sodium Chloride 1,000 mls @ 110 mls/hr 09/15/20 05:30 Nacl 0.9% 1000 Ml IV DIRECT ISIAH Sodium Chloride 100 mls @ 999 mls/hr 09/15/20 11:00 Nacl 0.9% IV NABEEL PRN Hypotension Heparin Sodium/Sodium Chloride 25,000 unit in 500 mls @ 30 mls/hr 09/15/20 14:00 09/16/20 09:32 Heparin/ 0.45% Nacl-25,000 Unit/500 Ml IV 1,050 units/hr TITR ISIAH 21 mls/hr Administration Protocol 1,500 UNITS/HR Dopamine HCl/Dextrose 800 mg in 250 mls @ 5.588 mls/hr 09/15/20 21:04 Intropin Drip 800 Mg/D5w 250 Ml IV TITR ISIAH Protocol 2 MCG/KG/MIN Sodium Chloride 100 mls @ 999 mls/hr 09/16/20 09:52 Nacl 0.9% IV NABEEL PRN Hypotension Insulin Glargine 15 units 09/12/20 10:00 09/16/20 09:37 Insulin Glargine 100 Units/Ml SUB-Q 15 units DAILY [facility] Administration Insulin Human Lispro 0 unit 09/11/20 12:00 09/16/20 05:16 Insulin Lispro 100 Unit/Ml SUB-Q 6 unit Q6HR [facility] Administration Protocol Midazolam HCl 2 mg 09/12/20 17:30 09/13/20 12:05 Midazolam 2 Mg/2 Ml Inj IV 2 mg Q10MIN PRN Administration Sedation Simple Syrup 15 ml 09/11/20 11:45 Simple Syrup 15 Ml FEEDTUBE PRN PRN Hypoglycemia Simple Syrup 30 ml 09/11/20 11:45 Simple Syrup 15 Ml FEEDTUBE PRN PRN Hypoglycemia Sodium Bicarbonate 325 mg 09/11/20 11:45 Sodium Bicarbonate 325 Mg Tab FEEDTUBE PRN PRN For Clogged Feeding Tube Sodium Chloride 10 ml 09/08/20 22:00 09/16/20 09:39 Sodium Chloride 0.9% 10 Ml Flush Syringe IV 10 ml BID ISIAH Administration Sodium Chloride 10 ml 09/08/20 20:23 Sodium Chloride 0.9% 10 Ml Flush Syringe IV PRN PRN LINE FLUSH Zinc Sulfate 220 mg 09/08/20 22:00 09/16/20 09:39 Zinc Sulfate 220 Mg Cap PO 220 mg BID ISIAH Administration
--- NOTE | 2020-09-16 10:16 | Progress Note ---
Assessment and Plan Cultures: SARS CoV2 PCR: Positive 09/08/2020 blood culture: No growth 09/08/2020 urine culture: Usual skin stefania A/P: 75-year-old female with hypertension, diabetes, obesity hypoventilation syndrome was admitted to the hospital with cough, shortness of breath, not feeling well: #Shock, likely septic: no clear evidence of bacterial infection. Completed empiric CAP coverage. Probably related to severe/critical COVID. Rise in procal now probably from renal failure. #Bilateral COVID-19 pneumonia: critical disease. Remdesivir was discontinued due to worsening renal failure. #Acute hypoxic respiratory failure: On the vent with very high requirements. #Morbid obesity #Hypertension, diabetes #Leukopenia, mild thrombocytopenia, transaminitis: Likely related to COVID-19 #NICOLASA: worse, now requiring dialysis. Recs: -continue steroids, higher dose due to morbid obesity -IV Tocilizumab administered 09/12/2020 -completed abx, rise in procal now probably from renal failure, if febrile, re- culture and start renally dosed cefepime + vancomycin -significantly high d-dimer, inability to do CTA because of renal failure (initial work up was negative), agree with anticoagulation -very poor prognosis Rory Ahuja MD, FACP [facility] ([facility] O: [phone] F: [phone] Subjective Date of service: 09/16/20 Principal diagnosis: Ac hypoxemic resp failure; ARDS; COVID-19 infxn; PNA; DM II; Obesity Interval history: Low-grade fever. Remains on the vent. On Decadron, on heparin drip. On pressors: Levophed and vasopressin. Objective - Exam Narrative Exam: Physical Exam (reviewed in chart to minimize risk of transmission) Constitutional: deferred Head, Ears, Nose: deferred Eyes: deferred Neck: deferred Oral: deferred Cardiovascular: deferred Respiratory: deferred GI: deferred Musculoskeletal: deferred Skin: deferred Hem/Lymphatic: deferred Psych: deferred Neurological: deferred - Constitutional Vitals: Vital Signs Temp Pulse Resp BP Pulse Ox 99.1 F 77 30 H 108/38 95 09/16/20 08:00 09/16/20 10:00 09/16/20 10:00 09/16/20 10:00 09/16/20 10:00 Temperature -Last 24 Hours Temperature 99.1 F Temperature 100.2 F Temperature 99.6 F Temperature 99.0 F Temperature 99.0 F Temperature 99.1 F Temperature 99.2 F - Labs CBC & Chem 7: 09/16/20 02:45 09/16/20 04:20 Labs: Abnormal lab results 09/15/20 09/15/20 09/15/20 Range/Units 03:10 12:30 13:25 WBC (4.5-11.0) K/mm3 Plt Count (140-440) K/mm3 PT (12.2-14.9) Sec. INR (0.87-1.13) Heparin Anti-Xa Level (0.3-0.7) U.I./ml ABG pH 7.178 L (7.320-7.450) POC ABG pCO2 58.7 H (32.0-48.0) mmHg POC ABG pO2 65.2 L (83-108) mmHg ABG Oxyhemoglobin 90.5 L (94-98) ABG Potassium 5.1 H (3.40-4.50) mmol/L ABG Chloride 110.0 H (98-107) mmol/L ABG Glucose 173 H (65-95) mg/dL Potassium 5.4 H (3.6-5.0) mmol/L BUN 89 H (7-17) mg/dL Creatinine 4.2 H (0.6-1.2) mg/dL Glucose 180 H (65-100) mg/dL POC Glucose (70-105) mg/dL AST (5-40) units/L C-Reactive Protein 3.90 H (0.00-1.30) mg/dL Total Protein (6.3-8.2) g/dL Albumin (3.9-5) g/dL Arterial Blood Glucose 173 H (65-95) mg/dL Arterial Blood Ionized Calcium (4.6-5.3) mg/dL 09/15/20 09/15/20 09/15/20 Range/Units 13:33 14:00 14:00 WBC (4.5-11.0) K/mm3 Plt Count 86 L (140-440) K/mm3 PT 18.8 H (12.2-14.9) Sec. INR 1.52 H (0.87-1.13) Heparin Anti-Xa Level (0.3-0.7) U.I./ml ABG pH (7.320-7.450) POC ABG pCO2 (32.0-48.0) mmHg POC ABG pO2 (83-108) mmHg ABG Oxyhemoglobin (94-98) ABG Potassium (3.40-4.50) mmol/L ABG Chloride (98-107) mmol/L ABG Glucose (65-95) mg/dL Potassium (3.6-5.0) mmol/L BUN (7-17) mg/dL Creatinine (0.6-1.2) mg/dL Glucose (65-100) mg/dL POC Glucose 146 H (70-105) mg/dL AST (5-40) units/L C-Reactive Protein (0.00-1.30) mg/dL Total Protein (6.3-8.2) g/dL Albumin (3.9-5) g/dL Arterial Blood Glucose (65-95) mg/dL Arterial Blood Ionized Calcium (4.6-5.3) mg/dL 09/15/20 09/15/20 09/15/20 Range/Units 18:02 21:10 23:04 WBC (4.5-11.0) K/mm3 Plt Count (140-440) K/mm3 PT (12.2-14.9) Sec. INR (0.87-1.13) Heparin Anti-Xa Level 0.78 H (0.3-0.7) U.I./ml ABG pH (7.320-7.450) POC ABG pCO2 (32.0-48.0) mmHg POC ABG pO2 (83-108) mmHg ABG Oxyhemoglobin (94-98) ABG Potassium (3.40-4.50) mmol/L ABG Chloride (98-107) mmol/L ABG Glucose (65-95) mg/dL Potassium (3.6-5.0) mmol/L BUN (7-17) mg/dL Creatinine (0.6-1.2) mg/dL Glucose (65-100) mg/dL POC Glucose 241 H 296 H (70-105) mg/dL AST (5-40) units/L C-Reactive Protein (0.00-1.30) mg/dL Total Protein (6.3-8.2) g/dL Albumin (3.9-5) g/dL Arterial Blood Glucose (65-95) mg/dL Arterial Blood Ionized Calcium (4.6-5.3) mg/dL 09/15/20 09/16/20 09/16/20 Range/Units 23:33 02:45 04:00 WBC 22.7 H (4.5-11.0) K/mm3 Plt Count 105 L (140-440) K/mm3 PT (12.2-14.9) Sec. INR (0.87-1.13) Heparin Anti-Xa Level (0.3-0.7) U.I./ml ABG pH 7.171 L (7.320-7.450) POC ABG pCO2 57.1 H (32.0-48.0) mmHg POC ABG pO2 144.1 H (83-108) mmHg ABG Oxyhemoglobin (94-98) ABG Potassium 5.0 H (3.40-4.50) mmol/L ABG Chloride (98-107) mmol/L ABG Glucose 273 H (65-95) mg/dL Potassium (3.6-5.0) mmol/L BUN (7-17) mg/dL Creatinine (0.6-1.2) mg/dL Glucose (65-100) mg/dL POC Glucose 298 H (70-105) mg/dL AST (5-40) units/L C-Reactive Protein (0.00-1.30) mg/dL Total Protein (6.3-8.2) g/dL Albumin (3.9-5) g/dL Arterial Blood Glucose 273 H (65-95) mg/dL Arterial Blood Ionized Calcium 4.5 L (4.6-5.3) mg/dL 09/16/20 09/16/20 Range/Units 04:20 05:10 WBC (4.5-11.0) K/mm3 Plt Count (140-440) K/mm3 PT (12.2-14.9) Sec. INR (0.87-1.13) Heparin Anti-Xa Level (0.3-0.7) U.I./ml ABG pH (7.320-7.450) POC ABG pCO2 (32.0-48.0) mmHg POC ABG pO2 (83-108) mmHg ABG Oxyhemoglobin (94-98) ABG Potassium (3.40-4.50) mmol/L ABG Chloride (98-107) mmol/L ABG Glucose (65-95) mg/dL Potassium 5.4 H (3.6-5.0) mmol/L BUN 75 H (7-17) mg/dL Creatinine 3.7 H (0.6-1.2) mg/dL Glucose 265 H (65-100) mg/dL POC Glucose 269 H (70-105) mg/dL AST 46 H (5-40) units/L C-Reactive Protein (0.00-1.30) mg/dL Total Protein 6.2 L (6.3-8.2) g/dL Albumin 2.9 L (3.9-5) g/dL Arterial Blood Glucose (65-95) mg/dL Arterial Blood Ionized Calcium (4.6-5.3) mg/dL
[2020-09-16] MEDS ORDERED: SODIUM CHLORIDE 0.9% 100 ML IV PRN (10:30)
[2020-09-16] MEDS: SODIUM BICARB 8.4% 50 MEQ/50 ML SYRINGE IV SCH ×2 (15:10→15:11)
--- NOTE | 2020-09-16 15:19 | XRay Report ---
CHEST 1 VIEW INDICATION / CLINICAL INFORMATION: hypoxia. COMPARISON: 09/15/2020 FINDINGS: SUPPORT DEVICES: Stable, satisfactory device positioning. HEART / MEDIASTINUM: No significant abnormality. LUNGS / PLEURA: Prominent bilateral pulmonary opacities are present and may be slightly worse compare d to the most recent exam. No pneumothorax. ADDITIONAL FINDINGS: No significant additional findings. IMPRESSION: 1. Slight interval progression of bilateral pulmonary opacities compared with yesterday's exam. Signer Name: Emma Black MD Signed: 09/16/2020 3:15 PM Workstation Name: [id number]
--- NOTE | 2020-09-16 18:29 | Progress Note ---
Assessment and Plan Assessment and plan: 72-year-old female with HTN, DM, OSH, OA admitted for COVID-19 pneumonia, sepsis, acute hypoxic respiratory failure, NICOLASA Neuro: Acute metabolic encephalopathy -Sedated with prop and fentanyl -RASS goal neg 4 -PERRL -family updated on plan of care -case management following Cardio: SB, H/O HTN, hypotension due to covid pna/sepsis -Atropine at bedside -Hold home Coreg-- no rate lowering meds -SR-ST HR 60-70 -trend QT -NE PRN for hypotension -Hydralazine IV as needed for SBP greater than 160 -normal biV function on echo -CVP- trend daily Respiratory: Acute hypoxic respiratory failure due to covid pna , Acute hypoxemic respiratory failure, COVID-19 infection, Bilateral pneumonia -Intubated 09/10 -Presented with pneumonia -CCM consulted, appreciate recommendations -VAP bundle -Wean mechanical ventilation as tolerated -Current vent settings: AC, 30/450/20/100 -see RT notes for titration/changes -Serial ABGs -Serial CXRs -proned 09/13-09/16 -continue duonebs GI: Morbid obesity, TF, cholelithiasis, transaminitis -Nutrition consulted, appreciate recommendations -tolerating TF -PPI -BR: Colace -BM 09/10 -Trend LFTs and tbili : Acute kidney injury 2/2 VMN -Presented with a BUN/creatinine of 1.5/32 -Avoid nephrotoxic medication -Nephrology consulted, appreciate recommendations -Strict intake and output -bladder scanning with intermittent straight caths -Daily weights -Trend BMP -renal consulted for uptrending Cr urine electrolytes and renal U/S ordered -HD on 09/15/2020 s/p vascath placement -HD per nephrology -AM labs ordered Heme: Thrombocytopenia, elevated D-dimer -Leukopenia likely secondary to COVID-19 infection-resolved -Thrombocytopenia likely secondary to sepsis -09/08 CTA chest shows no evidence of pulmonary embolism, multifocal airspace opacities with nodular densities and groundglass opacities in bilateral lungs, cholelithiasis, cholelithiasis -doppler BLE neg for DVT -No bleeding on exam -Low dose heparin gtt -Trend CBC -Transfuse for hemoglobin less than 7 ID: Sepsis, COVID-19 pneumonia, Acute hypoxemic respiratory failure, Acute respiratory distress syndrome, COVID-19 infection, Bilateral pneumonia, Elevated serum inflammatory markers to include D-dimer, ferritin and LDH, skin breakdown -Skin breakdown secondary to proning, WOCN consult, patient recommendations -Wound care per nursing -COVID-19 PCR (+) on 09/09 -Infectious disease consulted, appreciate recommendations -IV tocilizumab x1 -Dexamethasone 09/10 through 09/19 -Remdesivir 09/11 through 09/14 -Azithromycin 09/09 through 09/13, Rocephin 09/09 through 09/13 -Contact/droplet precaution -Trend COVID-19 inflammatory markers -on zinc and Vit C -If febrile, reculture and start renally dose cefepime/Vanco Endo: h/o DM; hyperglycemia; morbidly obese -Accu-Checks every 6hours -Avoid hypoglycemia -SSI -lantus scheduled Disposition: ICU Full code Lines: A-line, IJ TLC, IJ Vascath The high probability of a clinically significant, sudden or life threatening deterioration of the [multi] system(s) required my full and direct attention, intervention and personal management. The aggregate critical care time was [90] minutes. This time is in addition to time spent performing reported procedures but includes the following: [x] Data Review and interpretation [x] Patient assessment and monitoring of vital signs [x] Documentation [x] Medication orders and management Disposition Plan: ICU Total Time Spent with Patient (Minutes): 90 History Interval history: This 72-year-old female with HTN, DM, OHS, OA presents the emergency department on 09/08 with generalized weakness, loss of appetite, dry cough, loss of sense of smell, smell and taste, shortness of breath, malaise, decreased exercise tolerance over the past 3 days with progressive worsening symptoms. Patient's daughter provided additional history and stated patient's blood glucose level was being checked and the patient "threw back her head and passed out". EMS was notified and upon arrival patient was found to be in distress transported to [facility]. Patient was evaluated emergency department and had a pulse ox on room air of 82% consistent with acute hypoxic respiratory failure, CXR showed bilateral pneumonia, NICOLASA with ATN SSO to COVID-19 infection. Patient was admitted to the medical floor initiated COVID-19 protocol as well as pneumonia protocol. 09/10: Patient was intubated by ED physician and transferred to the ICU. 09/11: Infectious disease was consulted today, patient was placed on vasopressors due to hypotension despite receiving 1 L IV fluid, Lantus started, bilateral lower extremity Doppler ultrasound ordered, A-line and CVL placed. Late in the evening patient was exhibiting sinus bradycardia, EKG ordered along with stat CMP which showed NICOLASA. Stat ABG ordered which showed elevated PaO2 at 146 otherwise unremarkable on 100% FiO2. 09/12 bradycardia overnight requiring atropine x 1 and dopamine drip 09/13 tamia overnight 09/14 PRONED 16 H over the last day 09/16: Patient was proned overnight, per ID afebrile reculture and start cefepime and vancomycin, patient received hemodialysis today. Acidosis noted on ABG, vent changes per CCM and HD requested, 2 A of bicarb given. Has hyperk alemia today which has been treated. Hospitalist Physical - Constitutional Vitals: Temp Pulse Resp BP Pulse Ox 98.7 F 81 30 H 149/52 84 09/16/20 16:45 09/16/20 18:00 09/16/20 18:00 09/16/20 18:00 09/16/20 18:00 General appearance: Present: no acute distress, well-nourished, obese - EENT Eyes: Present: PERRL ENT: dentition normal - Neck Neck: Absent: masses or JVD, cervical LAD - Respiratory Respiratory effort: normal - Cardiovascular Rhythm: regular Peripheral Pulses: within normal limits - Integumentary Integumentary: Present: dry - Psychiatric Psychiatric: other (Sedated) - Neurologic Neurologic: other (Sedated) - Allied Health Allied health notes reviewed: nursing, RT HEART Score - HEART Score Troponin: Troponin T < 0.010 ng/mL (0.00-0.029) 09/09/20 00:39 Results - Labs CBC & Chem 7: 09/16/20 02:45 09/16/20 04:20 Labs: Laboratory Last Values WBC 22.7 K/mm3 (4.5-11.0) H 09/16/20 02:45 RBC 4.31 M/mm3 (3.65-5.03) 09/16/20 02:45 Hgb 13.4 gm/dl (10.1-14.3) 09/16/20 02:45 Hct 40.8 % (30.3-42.9) 09/16/20 02:45 MCV 95 fl (79-97) 09/16/20 02:45 MCH 31 pg (28-32) 09/16/20 02:45 MCHC 33 % (30-34) 09/16/20 02:45 RDW 15.2 % (13.2-15.2) 09/16/20 02:45 Plt Count 105 K/mm3 (140-440) L 09/16/20 02:45 Lymph % (Auto) 3.9 % (13.4-35.0) L 09/15/20 03:10 [place] % (Auto) 5.9 % (0.0-7.3) 09/15/20 03:10 Eos % (Auto) 0.2 % (0.0-4.3) 09/15/20 03:10 Baso % (Auto) 0.1 % (0.0-1.8) 09/15/20 03:10 Lymph # (Auto) 0.5 K/mm3 (1.2-5.4) L 09/15/20 03:10 [place] # (Auto) 0.8 K/mm3 (0.0-0.8) 09/15/20 03:10 Eos # (Auto) 0.0 K/mm3 (0.0-0.4) 09/15/20 03:10 Baso # (Auto) 0.0 K/mm3 (0.0-0.1) 09/15/20 03:10 Add Manual Diff Complete 09/12/20 17:17 Total Counted 100 09/12/20 17:17 Seg Neutrophils % 89.9 % (40.0-70.0) H 09/15/20 03:10 Seg Neuts % (Manual) 96.0 % (40.0-70.0) H 09/12/20 17:17 Lymphocytes % (Manual) 1.0 % (13.4-35.0) L 09/12/20 17:17 Monocytes % (Manual) 3.0 % (0.0-7.3) 09/12/20 17:17 Nucleated RBC % Not Reportable 09/12/20 17:17 Seg Neutrophils # 12.1 K/mm3 (1.8-7.7) H 09/15/20 03:10 Seg Neutrophils # Man 9.8 K/mm3 (1.8-7.7) H 09/12/20 17:17 Band Neutrophils # 0.0 K/mm3 09/12/20 17:17 Lymphocytes # (Manual) 0.1 K/mm3 (1.2-5.4) L 09/12/20 17:17 Abs React Lymphs (Man) 0.0 K/mm3 09/12/20 17:17 Monocytes # (Manual) 0.3 K/mm3 (0.0-0.8) 09/12/20 17:17 Eosinophils # (Manual) 0.0 K/mm3 (0.0-0.4) 09/12/20 17:17 Basophils # (Manual) 0.0 K/mm3 (0.0-0.1) 09/12/20 17:17 Metamyelocytes # 0.0 K/mm3 09/12/20 17:17 Myelocytes # 0.0 K/mm3 09/12/20 17:17 Promyelocytes # 0.0 K/mm3 09/12/20 17:17 Blast Cells # 0.0 K/mm3 09/12/20 17:17 WBC Morphology Not Reportable 09/12/20 17:17 Hypersegmented Neuts Not Reportable 09/12/20 17:17 Hyposegmented Neuts Not Reportable 09/12/20 17:17 Hypogranular Neuts Not Reportable 09/12/20 17:17 Smudge Cells Not Reportable 09/12/20 17:17 Toxic Granulation Not Reportable 09/12/20 17:17 Toxic Vacuolation Not Reportable 09/12/20 17:17 Dohle Bodies Not Reportable 09/12/20 17:17 Pelger-Huet Anomaly Not Reportable 09/12/20 17:17 Katrin Rods Not Reportable 09/12/20 17:17 Platelet Estimate Consistent w auto 09/12/20 17:17 Clumped Platelets Not Reportable 09/12/20 17:17 Plt Clumps, EDTA Not Reportable 09/12/20 17:17 Large Platelets Not Reportable 09/12/20 17:17 Giant Platelets Not Reportable 09/12/20 17:17 Platelet Satelliting Not Reportable 09/12/20 17:17 Plt Morphology Comment Not Reportable 09/12/20 17:17 RBC Morphology Normal 09/12/20 17:17 Dimorphic RBCs Not Reportable 09/12/20 17:17 Polychromasia Not Reportable 09/12/20 17:17 Hypochromasia Not Reportable 09/12/20 17:17 Poikilocytosis Not Reportable 09/12/20 17:17 Anisocytosis Not Reportable 09/12/20 17:17 Microcytosis Not Reportable 09/12/20 17:17 Macrocytosis Not Reportable 09/12/20 17:17 Spherocytes Not Reportable 09/12/20 17:17 Pappenheimer Bodies Not Reportable 09/12/20 17:17 Sickle Cells Not Reportable 09/12/20 17:17 Target Cells Not Reportable 09/12/20 17:17 Tear Drop Cells Not Reportable 09/12/20 17:17 Ovalocytes Not Reportable 09/12/20 17:17 Helmet Cells Not Reportable 09/12/20 17:17 [employer] Bodies Not Reportable 09/12/20 17:17 [place] Rings Not Reportable 09/12/20 17:17 [place] Cells Not Reportable 09/12/20 17:17 Bite Cells Not Reportable 09/12/20 17:17 Crenated Cell Not Reportable 09/12/20 17:17 Elliptocytes Not Reportable 09/12/20 17:17 Acanthocytes (Spur) Not Reportable 09/12/20 17:17 Rouleaux Not Reportable 09/12/20 17:17 Hemoglobin C Crystals Not Reportable 09/12/20 17:17 Schistocytes Not Reportable 09/12/20 17:17 Malaria parasites Not Reportable 09/12/20 17:17 Hansel Bodies Not Reportable 09/12/20 17:17 Hem Pathologist Commnt No 09/12/20 17:17 PT 18.8 Sec. (12.2-14.9) H 09/15/20 14:00 INR 1.52 (0.87-1.13) H 09/15/20 14:00 APTT 32.7 Sec. (24.2-36.6) 09/15/20 14:00 D-Dimer > 62664 ng/mlDDU (0-234) H 09/15/20 03:10 Heparin Anti-Xa Level 0.65 U.I./ml (0.3-0.7) 09/16/20 07:25 ABG pH 7.156 (7.320-7.450) L 09/16/20 13:45 POC ABG pCO2 59.8 mmHg (32.0-48.0) H 09/16/20 13:45 POC ABG pO2 48.2 mmHg (83-108) L 09/16/20 13:45 POC ABG HCO3 20.6 09/16/20 13:45 ABG O2 Saturation 79.1 (0-100) 09/16/20 13:45 POC ABG Base Excess -8.6 09/16/20 13:45 ABG Hemoglobin 12.6 (12.0-17.5) 09/16/20 13:45 ABG Oxyhemoglobin 78.1 (94-98) L 09/16/20 13:45 ABG Methemoglobin 0.3 (0.0-1.5) 09/16/20 13:45 ABG Sodium 136.6 mmol/L (136.0-145.0) 09/16/20 13:45 ABG Potassium 5.2 mmol/L (3.40-4.50) H 09/16/20 13:45 ABG Chloride 106.0 mmol/L (98-107) 09/16/20 13:45 ABG Glucose 302 mg/dL (65-95) H 09/16/20 13:45 Carboxyhemoglobin 1.0 (0.5-1.5) 09/16/20 13:45 FiO2 % 100.0 09/16/20 13:45 Sodium 139 mmol/L (137-145) 09/16/20 04:20 Potassium 5.4 mmol/L (3.6-5.0) H 09/16/20 04:20 Chloride 98.1 mmol/L (98-107) 09/16/20 04:20 Carbon Dioxide 23 mmol/L (22-30) 09/16/20 04:20 Anion Gap 23 mmol/L 09/16/20 04:20 BUN 75 mg/dL (7-17) H 09/16/20 04:20 Creatinine 3.7 mg/dL (0.6-1.2) H 09/16/20 04:20 Estimated GFR 15 ml/min 09/16/20 04:20 BUN/Creatinine Ratio 20 % 09/16/20 04:20 Glucose 265 mg/dL (65-100) H 09/16/20 04:20 POC Glucose 285 mg/dL (70-105) H 09/16/20 17:21 Osmolality 329 Mosm/kg 09/12/20 17:17 Lactic Acid 1.90 mmol/L (0.7-2.0) 09/12/20 17:17 Calcium 8.6 mg/dL (8.4-10.2) 09/16/20 04:20 Phosphorus 6.70 mg/dL (2.5-4.5) H 09/15/20 06:12 Magnesium 2.30 mg/dL (1.7-2.3) 09/15/20 06:12 Ferritin 1434.0 ng/mL (10.0-200.0) H 09/11/20 Unknown Total Bilirubin 0.20 mg/dL (0.1-1.2) 09/16/20 04:20 AST 46 units/L (5-40) H 09/16/20 04:20 ALT 27 units/L (7-56) 09/16/20 04:20 Alkaline Phosphatase 112 units/L (35-129) 09/16/20 04:20 Lactate Dehydrogenase 755 units/L (91-180) H 09/11/20 05:56 Troponin T < 0.010 ng/mL (0.00-0.029) 09/09/20 00:39 C-Reactive Protein 3.90 mg/dL (0.00-1.30) H 09/15/20 03:10 NT-Pro-B Natriuret Pep 503.6 pg/mL (0-900) 09/08/20 17:37 Total Protein 6.2 g/dL (6.3-8.2) L 09/16/20 04:20 Albumin 2.9 g/dL (3.9-5) L 09/16/20 04:20 Albumin/Globulin Ratio 0.9 % 09/16/20 04:20 Lipase 47 units/L (13-60) 09/08/20 17:37 Procalcitonin 0.74 ng/mL (<0.15) 09/15/20 03:10 TSH 0.067 mlU/mL (0.270-4.200) L 09/12/20 17:17 Arterial Blood Glucose 302 mg/dL (65-95) H 09/16/20 13:45 Arterial Blood Ionized Calcium 4.4 mg/dL (4.6-5.3) L 09/16/20 13:45 Urine Color Yellow (Yellow) 09/12/20 13:30 Urine Turbidity Clear (Clear) 09/12/20 13:30 Urine pH 5.0 (5.0-7.0) 09/12/20 13:30 Ur Specific [place] 1.011 (1.003-1.030) 09/12/20 13:30 Urine Protein 100 mg/dl mg/dL (Negative) 09/12/20 13:30 Urine Glucose (UA) 50 mg/dL (Negative) 09/12/20 13:30 Urine Ketones Neg mg/dL (Negative) 09/12/20 13:30 Urine Blood Lg (Negative) 09/12/20 13:30 Urine Nitrite Neg (Negative) 09/12/20 13:30 Urine Bilirubin Neg (Negative) 09/12/20 13:30 Urine Urobilinogen < 2.0 mg/dL (<2.0) 09/12/20 13:30 Ur Leukocyte Esterase Neg (Negative) 09/12/20 13:30 Urine WBC (Auto) 2.0 /HPF (0.0-6.0) 09/12/20 13:30 Urine RBC (Auto) 47.0 /HPF (0.0-6.0) 09/12/20 13:30 U Epithel Cells (Auto) 2.0 /HPF (0-13.0) 09/08/20 22:24 Urine Bacteria (Auto) 1+ /HPF (Negative) 09/12/20 13:30 Urine Mucus Few /HPF 09/12/20 13:30 Urine Osmolality 340 Mosm/kg 09/12/20 13:30 Urine Creatinine 43.2 mg/dL (0.1-20.0) H 09/12/20 13:30 Urine Sodium 58 mmol/L 09/12/20 13:30 Urine Urea Nitrogen 479 09/12/20 13:30 Urine Opiates Screen Presumptive negative 09/08/20 22:24 Urine Methadone Screen Presumptive negative 09/08/20 22:24 Ur Barbiturates Screen Presumptive negative 09/08/20 22:24 Ur Phencyclidine Scrn Presumptive negative 09/08/20 22:24 Ur Amphetamines Screen Presumptive negative 09/08/20 22:24 U Benzodiazepines Scrn Presumptive negative 09/08/20 22:24 Urine Cocaine Screen Presumptive negative 09/08/20 22:24 U Marijuana (THC) Screen Presumptive negative 09/08/20 22:24 Drugs of Abuse Note Disclamer 09/08/20 22:24 Coronavirus (PCR) Positive (Negative) A 09/09/20 09:00 Hepatitis A IgM Ab Non-reactive (NonReactive) 09/15/20 13:25 Hep Bs Antigen Non-reactive (Negative) 09/15/20 13:25 Hep B Core IgM Ab Non-reactive (NonReactive) 09/15/20 13:25 Hepatitis C Antibody Non-reactive (NonReactive) 09/15/20 13:25 Microbiology: Microbiology 09/10/20 00:02 Tracheal Aspirate Sputum Culture - Final Begum/IV: Voiding Method Indwelling Catheter Active Medications - Current Medications Current Medications: Generic Name Dose Route Start Last Admin Trade Name Freq PRN Reason Stop Dose Admin Acetaminophen 650 mg 09/08/20 20:23 Acetaminophen 325 Mg Tab PO Q4H PRN Pain MILD(1-3)/Fever >100.5/CORTEZ Albuterol 2.5 mg 09/08/20 20:23 Albuterol 2.5 Mg/3 Ml Nebu IH Q4HRT PRN Shortness Of Breath Albuterol/Ipratropium 1 ampul 09/13/20 12:30 09/16/20 09:10 Ipratropium/Albuterol Sulfate 3 Ml Ampul.Neb IH 1 ampul BID ISIAH Administration Lipase/Protease/Amylase 1 each 09/11/20 11:45 Lipase 10,500/Protease 25,000/Amylase 43,750 (Units) Dr Luis Manuel HARRISON PRN PRN For Clogged Feeding Tube Ascorbic Acid 500 mg 09/08/20 22:00 09/16/20 09:39 Ascorbic Acid 500 Mg Tab PO 500 mg BID ISIAH Administration Cholecalciferol 1,000 unit 09/09/20 10:00 09/16/20 09:39 Cholecalciferol (Vit D3) 1000 Unit (25 Mcg) Tab PO 1,000 unit QDAY ISIAH Administration Dexamethasone 8 mg 09/10/20 17:00 09/16/20 09:37 Dexamethasone 4 Mg/Ml Vial IV 09/19/20 10:01 8 mg DAILY ISIAH Administration Famotidine 10 mg 09/14/20 22:00 09/16/20 09:38 Famotidine 20 Mg/2 Ml Inj IV 10 mg BID ISIAH Administration Fentanyl 50 mcg 09/13/20 12:12 Fentanyl 100 Mcg/2 Ml Inj IV Q10MIN PRN ANALGESIA Guaifenesin 10 ml 09/09/20 16:01 09/10/20 05:14 Guaifenesin Dm 200/20 Mg Oral Liqd 10 Ml PO 10 ml Q4H PRN Administration Cough Heparin Sodium (Porcine) 5,000 unit 09/15/20 13:05 Heparin 10,000 Units/10 Ml Vial IV Q6H PRN Anti-Xa Assay < 0.1 units/ml Hydralazine HCl 10 mg 09/11/20 21:33 Hydralazine 20 Mg/1 Ml Inj IV Q4H PRN Hypertension Fentanyl Citrate 2,000 mcg in 100 mls @ 7.45 mls/hr 09/10/20 23:00 09/16/20 16:22 Fentanyl Drip Premix IV 4 mcg/kg/hr TITR ISIAH 29.8 mls/hr Administration Protocol 1 MCG/KG/HR Norepinephrine 4 mg in 250 mls @ 7.5 mls/hr 09/11/20 17:00 09/16/20 16:23 Levophed Drip 4 Mg/Ns 250 Ml IV 10 mcg/min TITR ISIAH 37.5 mls/hr Administration Protocol 2 MCG/MIN Vasopressin 20 unit/ Sodium 101 mls @ 9.09 mls/hr 09/11/20 22:00 09/16/20 09:34 Chloride IV 0.03 units/min TITR ISIAH 9.09 mls/hr Administration Protocol 0.03 UNITS/MIN Midazolam HCl 100 mg/ Sodium 100 mls @ 1 mls/hr 09/12/20 17:30 09/16/20 04:03 Chloride IV 5 mg/hr TITR ISIAH 5 mls/hr Administration Protocol 1 MG/HR Propofol 1,000 mg in 100 mls @ 4.47 mls/hr 09/13/20 13:00 09/16/20 13:26 Diprivan 10 Mg/Ml IV 5 mcg/kg/min TITR ISIAH 4.47 mls/hr Administration Protocol 5 MCG/KG/MIN Sodium Chloride 1,000 mls @ 110 mls/hr 09/15/20 05:30 Nacl 0.9% 1000 Ml IV DIRECT ISIAH Heparin Sodium/Sodium Chloride 25,000 unit in 500 mls @ 30 mls/hr 09/15/20 14:00 09/16/20 09:32 Heparin/ 0.45% Nacl-25,000 Unit/500 Ml IV 1,050 units/hr TITR ISIAH 21 mls/hr Administration Protocol 1,500 UNITS/HR Dopamine HCl/Dextrose 800 mg in 250 mls @ 5.588 mls/hr 09/15/20 21:04 Intropin Drip 800 Mg/D5w 250 Ml IV TITR ISIAH Protocol 2 MCG/KG/MIN Sodium Chloride 100 mls @ 999 mls/hr 09/16/20 10:30 Nacl 0.9% IV NABEEL PRN Hypotension Insulin Glargine 20 units 09/16/20 11:00 09/16/20 11:20 Insulin Glargine 100 Units/Ml SUB-Q 20 units QAMDIAB ISIAH Administration Insulin Human Lispro 0 unit 09/11/20 12:00 09/16/20 17:41 Insulin Lispro 100 Unit/Ml SUB-Q 6 unit Q6HR ISIAH Administration Protocol Midazolam HCl 2 mg 09/12/20 17:30 09/13/20 12:05 Midazolam 2 Mg/2 Ml Inj IV 2 mg Q10MIN PRN Administration Sedation Simple Syrup 15 ml 09/11/20 11:45 Simple Syrup 15 Ml FEEDTUBE PRN PRN Hypoglycemia Simple Syrup 30 ml 09/11/20 11:45 Simple Syrup 15 Ml FEEDTUBE PRN PRN Hypoglycemia Sodium Bicarbonate 325 mg 09/11/20 11:45 Sodium Bicarbonate 325 Mg Tab FEEDTUBE PRN PRN For Clogged Feeding Tube Sodium Bicarbonate 50 meq 09/16/20 15:00 09/16/20 15:11 Sodium Bicarb 8.4% 50 Meq/50 Ml Syringe IV 09/17/20 15:01 50 meq ONCE ISIAH Administration Sodium Chloride 10 ml 09/08/20 22:00 09/16/20 09:39 Sodium Chloride 0.9% 10 Ml Flush Syringe IV 10 ml BID ISIAH Administration Sodium Chloride 10 ml 09/08/20 20:23 Sodium Chloride 0.9% 10 Ml Flush Syringe IV PRN PRN LINE FLUSH Zinc Sulfate 220 mg 09/08/20 22:00 09/16/20 09:39 Zinc Sulfate 220 Mg Cap PO 220 mg BID ISIAH Administration Nutrition/Malnutrition Assess - Dietary Evaluation Nutrition/Malnutrition Findings: Nutrition Notes Start: 09/11/20 11:37 Freq: Status: Active Protocol: Document 09/15/20 09:31 SOURAV (Rec: 09/15/20 09:38 [id number]) Nutrition Notes Initial or Follow up Reassessment Current Diagnosis Acute Kidney Injury, Respiratory Failure Other Pertinent Diagnosis pneu, COVID Current Diet Glucerna 1.2 at 65 ml/hr Labs/Tests K 5.5 BUN 87 Cr 4.3 Phos 6.7 Pertinent Medications Propofol Levophed Height 5 ft 8 in Weight 149 kg [place] Body Weight (kg) 63.63 BMI 49.9 Weight Status Morbidly Obese Subjective/Other Information Will adjust TF for renal labs and 16 hour prone. TF running at 10 ml/hr. Percent of energy/protein needs met: 15%/9% Burn Absent Trauma Absent Current % PO Negligible Minimum of two criteria No physical signs of malnutrition #1 Nutrition Diagnosis Inadequate oral intake Diagnosis Progress(for reassessment Continues documentation) Is patient on ventilator? Yes Is Patient Ambulatory and/or Out of Bed No REE-([place]-confined to bed) [phone] Kcal/Kg value to use for calculation 12 Approximate Energy Requirements Using 1788 kcal/Kg Calculation Used for Recommendations Kcal/kg Additional Notes Protein: up to 2.5g/kg IBW (up to 159g) Fluid: 1 ml/kcal or per MD Nutrition Intervention Change Diet Order: Change TF Nutrition Support: 16 Hr Prone: For 16h proned - Nepro 1.8 at 20 ml/hr Flush 50 ml q4h For 8 h supine - Nepro 1.8 at 80 ml/hr (or as tolerated). Flush 250 q4h When finished proning: Nepro 1 .8 at 40 ml/hr Flush 175 ml q4h or per MD Kcal 1,728 Protein (gm) 78 Fluid (mL) 698 Goal #1 Meet at least 75% of protein and energy needs via TF Anticipated Discharge Needs: Unable to determine at this time Follow-Up By: 09/18/20 Additional Comments FU for TF tolerance and proning
[2020-09-17] MEDS: INSULIN LISPRO 100 UNIT/ML SUB-Q SCH ×4 (00:02→17:56)
--- NOTE | 2020-09-17 02:27 | XRay Report ---
CHEST 1 VIEW 09/17/2020 1:30 AM INDICATION / CLINICAL INFORMATION: hypoxia. COMPARISON: 09/16/20 FINDINGS: SUPPORT DEVICES: Unchanged. HEART / MEDIASTINUM: No significant abnormality. LUNGS / PLEURA: Bilateral pulmonary opacities are unchanged. No pneumothorax. ADDITIONAL FINDINGS: No significant additional findings. IMPRESSION: 1. No significant change. Signer Name: Huang Huynh MD Signed: 09/17/2020 2:22 AM Workstation Name: [id number]
[2020-09-17] MEDS: fentaNYL DRIP Premix 2,000 MCG/100 ML BAG IV SCH ×7 (02:44→21:53)
[2020-09-17] MEDS: NORepinephrine/NS 4 MG-250 ML 4 MG/250 ML BAG IV SCH ×7 (03:27→20:13)
[2020-09-17 05:59] LABS: Hematocrit 37.8 % (30.3-42.9); Hemoglobin 12.2 gm/dl (10.1-14.3); Mean Corpuscular HGB Conc 32 % (30-34); Mean Corpuscular Volume 95 fl (79-97); Red Blood Count 3.98 M/mm3 (3.65-5.03); Red Cell Distribution Width 15.5 % (13.2-15.2)
[2020-09-17 06:04] LABS: Platelet Count 91 K/mm3 (140-440)
[2020-09-17 06:22] LABS: C-Reactive Protein 5.3 mg/dL (0.00-1.30); Calcium 8.3 mg/dL (8.4-10.2)
[2020-09-17] MEDS: INSULIN GLARGINE 100 UNITS/ML SUB-Q SCH (08:59)
[2020-09-17] MEDS: IPRATROPIUM/ALBUTEROL SULFATE 3 ML AMPUL.NEB IH SCH (09:01)
[2020-09-17] MEDS: CHOLECALCIFEROL (VIT D3) 1000 UNIT (25 mcg) TAB PO SCH (09:01)
[2020-09-17] MEDS: ZINC SULFATE 220 MG CAP PO SCH ×2 (09:01→21:08)
[2020-09-17] MEDS: FAMOTIDINE 20 MG/2 ML INJ IV SCH ×2 (09:01→21:08)
[2020-09-17] MEDS: ASCORBIC ACID 500 MG TAB PO SCH ×2 (09:01→21:09)
[2020-09-17] MEDS: dexAMETHasone 4 MG/ML VIAL IV SCH (09:01)
[2020-09-17] MEDS: HEPARIN/ 0.45% NACL DRIP 25,000 UNIT/500 ML BAG IV SCH (09:18)
[2020-09-17] MEDS: MIDAZOLAM 100 MG in SODIUM CHLORIDE 0.9% 80 ML IV SCH (09:18)
--- NOTE | 2020-09-17 13:12 | Progress Note ---
Assessment and Plan Acute hypoxemic respiratory failure Acute respiratory distress syndrome COVID-19 infection Bilateral pneumonia Diabetes Hypertension Obesity Leukopenia/Thrombocytopenia Elevated serum inflammatory markers to include D-dimer, ferritin and LDH -Trend platelets, currently thrombocytopenic, monitor for bleeding complications - continue daily [id number] - continue to wean vasopressors for target MAP > 65 mmHg - continue Propofol and Fentanyl for sedation and synchrony while proned - continue chacon catheter - continue to wean supplemental oxygen for SpO2 89-92% -Permissive hypercaponia , monitor airway pressures, lung protective strategies -For UF today - VAP bundle addressed, aspiration precautions - continue bronchodilators with pulmonary hygiene per RT - avoid nephrotoxins, renally dose all medications - continue accuchecks with glycemic control per SSI (While critically ill target blood glucose of 140-180 mg/dL; avoid hypoglycemia) - sedation prn for target RASS -3 to -4 - continue to avoid benzodiazepine's, reduce the possibility of delirium - s/p a course of antibiotics. Monitor clinically, temperature and WCC - analgesia per CPOT score 0-3 - continue enteral nutritional support at goal rate as tolerated when supine. Adjusted tube feeding rate when proned - Stress ulcer prophylaxis - Monitor hemodynamics closely - continue other care per attending / other consultants COVID SPECIFIC INTERVENTIONS - Remdesivir as per ID/Pulmonary developed protocols (ordered) --IV Tocilizumab administered 09/12/2020 - continue systemic steroids for severe COVID-19 infection empirically - Monitor inflammatory markers per facility protocol - ferritin, Ddimer, CRP - therapeutic anticoagulation per system Protocol based on d-dimer and clinical considerations - Continue contact and airborne isolation CONDITION: CRITICAL PROGNOSIS: GUARDED CODE STATUS: FULL CODE The high probability of a clinically significant, sudden or life-threatening deterioration of the [respiratory, cardiovascular & neurologic] system(s) required my full and direct attention, intervention and personal management. The aggregate critical care time was [35] minutes without overlap. Time includes spent on; [x] Data Review and interpretation [x] Patient assessment and monitoring of vital signs [x] Documentation [x] Medication orders and management Subjective Date of service: 09/17/20 Principal diagnosis: Ac hypoxemic resp failure; ARDS; COVID-19 infxn; PNA; DM II; Obesity Interval history: Patient is seen today for: Ac hypoxemic resp failure; ARDS; COVID-19 infxn; PNA; DM II; Obesity Seen and examined at bedside; 24hour events reviewed; nursing and respiratory care staff consulted; no adverse overnight events reported to me; resting in bed; remains on MVS; proned with frothy bloody tracheal secretions Proning 01/28 Remains on on +18/80% ABG 7.22/60.5/64.6 . Remains on Norepinephrine and Vasopressin Received second session of HD yesterday, UF of 1 liter Sedated on Propofol, Fentanyl No reported adverse events overnight Objective Vital Signs - 12hr 09/17/20 09/17/20 09/17/20 01:16 01:20 01:26 Temperature Pulse Rate 76 72 73 Pulse Rate [ Anterior Bilateral Throughout] Respiratory 30 H 30 H 30 H Rate Respiratory Rate [Anterior Bilateral Throughout] Blood Pressure 144/41 143/41 143/41 O2 Sat by Pulse 96 94 96 Oximetry 09/17/20 09/17/20 09/17/20 01:30 01:36 01:40 Temperature Pulse Rate 70 70 69 Pulse Rate [ Anterior Bilateral Throughout] Respiratory 30 H 30 H 30 H Rate Respiratory Rate [Anterior Bilateral Throughout] Blood Pressure 143/41 143/41 132/42 O2 Sat by Pulse 95 95 93 Oximetry 09/17/20 09/17/20 09/17/20 01:46 01:50 01:56 Temperature Pulse Rate 70 75 72 Pulse Rate [ Anterior Bilateral Throughout] Respiratory 30 H 30 H 18 Rate Respiratory Rate [Anterior Bilateral Throughout] Blood Pressure 132/42 132/42 132/42 O2 Sat by Pulse 96 95 95 Oximetry 09/17/20 09/17/20 09/17/20 02:00 02:06 02:10 Temperature Pulse Rate 72 Pulse Rate [ Anterior Bilateral Throughout] Respiratory 26 H Rate Respiratory Rate [Anterior Bilateral Throughout] Blood Pressure 132/42 132/42 132/42 O2 Sat by Pulse 90 92 Oximetry 09/17/20 09/17/20 09/17/20 02:16 02:20 02:26 Temperature Pulse Rate 92 H 75 78 Pulse Rate [ Anterior Bilateral Throughout] Respiratory 30 H 30 H 30 H Rate Respiratory Rate [Anterior Bilateral Throughout] Blood Pressure 132/42 132/42 132/42 O2 Sat by Pulse 94 93 89 Oximetry 09/17/20 09/17/20 09/17/20 02:30 02:36 02:40 Temperature Pulse Rate 82 86 85 Pulse Rate [ Anterior Bilateral Throughout] Respiratory 30 H 30 H 30 H Rate Respiratory Rate [Anterior Bilateral Throughout] Blood Pressure 132/42 132/42 132/42 O2 Sat by Pulse 88 88 88 Oximetry 09/17/20 09/17/20 09/17/20 03:00 03:52 04:00 Temperature 100.4 F H Pulse Rate 83 83 Pulse Rate [ Anterior Bilateral Throughout] Respiratory 30 H 30 H Rate Respiratory Rate [Anterior Bilateral Throughout] Blood Pressure 132/42 132/42 O2 Sat by Pulse 89 92 Oximetry 09/17/20 09/17/20 09/17/20 05:00 05:06 06:00 Temperature Pulse Rate 84 87 82 Pulse Rate [ Anterior Bilateral Throughout] Respiratory 30 H 30 H Rate Respiratory Rate [Anterior Bilateral Throughout] Blood Pressure 132/42 121/55 132/42 O2 Sat by Pulse 90 90 92 Oximetry 09/17/20 09/17/20 09/17/20 07:00 08:00 08:54 Temperature Pulse Rate 80 82 90 Pulse Rate [ Anterior Bilateral Throughout] Respiratory 30 H 30 H Rate Respiratory Rate [Anterior Bilateral Throughout] Blood Pressure 132/42 132/42 100/39 O2 Sat by Pulse 92 91 89 Oximetry 09/17/20 09/17/20 09/17/20 09:00 09:46 10:00 Temperature Pulse Rate 89 85 Pulse Rate [ 90 Anterior Bilateral Throughout] Respiratory 30 H 28 H Rate Respiratory 30 H Rate [Anterior Bilateral Throughout] Blood Pressure 132/42 132/42 O2 Sat by Pulse 88 89 Oximetry 09/17/20 09/17/20 09/17/20 11:00 12:00 12:18 Temperature Pulse Rate 94 H 86 91 H Pulse Rate [ Anterior Bilateral Throughout] Respiratory 30 H 30 H Rate Respiratory Rate [Anterior Bilateral Throughout] Blood Pressure 132/42 132/42 108/42 O2 Sat by Pulse 88 90 90 Oximetry Constitutional: appears uncomfortable, other (elderly obese female with mildly increased respiratory effort at rest on MVS, proned with frothy red secretions) Eyes: non-icteric ENT: oropharynx moist, other (ETT 24 cm STEVEN) Neck: supple, other (large circumference) Effort: mildly labored Ascultation: Bilateral: diminished breath sounds, rhonchi Percussion: Bilateral: not dull Cardiovascular: regular rate and rhythm Gastrointestinal: soft, non-tender Integumentary: normal Extremities: no cyanosis, pulses normal, edema, anasarca Neurologic: other (sedated) Psychiatric: other (unable to assess) CBC and BMP: 09/17/20 04:52 09/18/20 05:15 ABG, PT/INR, D-dimer: ABG ABG pH 7.156 (7.320-7.450) L 09/16/20 13:45 POC ABG pCO2 59.8 mmHg (32.0-48.0) H 09/16/20 13:45 POC ABG pO2 48.2 mmHg (83-108) L 09/16/20 13:45 POC ABG HCO3 20.6 09/16/20 13:45 ABG O2 Saturation 79.1 (0-100) 09/16/20 13:45 PT/INR, D-dimer PT 18.8 Sec. (12.2-14.9) H 09/15/20 14:00 INR 1.52 (0.87-1.13) H 09/15/20 14:00 D-Dimer > 96598 ng/mlDDU (0-234) H 09/17/20 04:52 Abnormal lab findings: Abnormal Labs 09/08/20 09/08/20 09/08/20 17:37 17:37 17:37 WBC 4.3 L Hgb Hct RDW Plt Count 106 L Lymph % (Auto) [place] % (Auto) 7.5 H Lymph # (Auto) 0.6 L Seg Neutrophils % 77.4 H Seg Neuts % (Manual) Lymphocytes % (Manual) Seg Neutrophils # Seg Neutrophils # Man Lymphocytes # (Manual) PT INR D-Dimer 741.67 H Heparin Anti-Xa Level ABG pH POC ABG pCO2 POC ABG pO2 ABG Hemoglobin ABG Oxyhemoglobin ABG Sodium ABG Potassium ABG Chloride ABG Glucose Carboxyhemoglobin Sodium 129 L Potassium Chloride 91.9 L Carbon Dioxide BUN 32 H Creatinine 1.5 H Glucose 200 H POC Glucose Calcium 8.1 L Phosphorus Magnesium Ferritin AST 49 H Lactate Dehydrogenase C-Reactive Protein Total Protein Albumin 2.7 L TSH Arterial Blood Glucose Arterial Blood Ionized Calcium Ur Specific [place] Urine Creatinine Coronavirus (PCR) 09/08/20 09/08/20 09/08/20 17:37 17:37 22:24 WBC Hgb Hct RDW Plt Count Lymph % (Auto) [place] % (Auto) Lymph # (Auto) Seg Neutrophils % Seg Neuts % (Manual) Lymphocytes % (Manual) Seg Neutrophils # Seg Neutrophils # Man Lymphocytes # (Manual) PT INR D-Dimer Heparin Anti-Xa Level ABG pH POC ABG pCO2 POC ABG pO2 ABG Hemoglobin ABG Oxyhemoglobin ABG Sodium ABG Potassium ABG Chloride ABG Glucose Carboxyhemoglobin Sodium Potassium Chloride Carbon Dioxide BUN Creatinine Glucose 201 H POC Glucose Calcium Phosphorus Magnesium Ferritin 731.2 H AST Lactate Dehydrogenase 396 H C-Reactive Protein 7.00 H Total Protein Albumin TSH Arterial Blood Glucose Arterial Blood Ionized Calcium Ur Specific [place] 1.035 H Urine Creatinine Coronavirus (PCR) 09/08/20 09/09/20 09/09/20 23:35 07:30 08:28 WBC 3.4 L Hgb 15.5 H Hct 47.1 H RDW Plt Count 95 L Lymph % (Auto) 9.5 L [place] % (Auto) Lymph # (Auto) 0.3 L Seg Neutrophils % 85.2 H Seg Neuts % (Manual) Lymphocytes % (Manual) Seg Neutrophils # Seg Neutrophils # Man Lymphocytes # (Manual) PT INR D-Dimer Heparin Anti-Xa Level ABG pH POC ABG pCO2 POC ABG pO2 ABG Hemoglobin ABG Oxyhemoglobin ABG Sodium ABG Potassium ABG Chloride ABG Glucose Carboxyhemoglobin Sodium Potassium Chloride Carbon Dioxide BUN Creatinine Glucose POC Glucose 188 H 281 H Calcium Phosphorus Magnesium Ferritin AST Lactate Dehydrogenase C-Reactive Protein Total Protein Albumin TSH Arterial Blood Glucose Arterial Blood Ionized Calcium Ur Specific [place] Urine Creatinine Coronavirus (PCR) 09/09/20 09/09/20 09/09/20 08:28 09:00 11:48 WBC Hgb Hct RDW Plt Count Lymph % (Auto) [place] % (Auto) Lymph # (Auto) Seg Neutrophils % Seg Neuts % (Manual) Lymphocytes % (Manual) Seg Neutrophils # Seg Neutrophils # Man Lymphocytes # (Manual) PT INR D-Dimer Heparin Anti-Xa Level ABG pH POC ABG pCO2 POC ABG pO2 ABG Hemoglobin ABG Oxyhemoglobin ABG Sodium ABG Potassium ABG Chloride ABG Glucose Carboxyhemoglobin Sodium 130 L Potassium Chloride 93.5 L Carbon Dioxide BUN 31 H Creatinine 1.3 H Glucose 266 H POC Glucose 354 H Calcium Phosphorus Magnesium Ferritin AST 48 H Lactate Dehydrogenase C-Reactive Protein Total Protein Albumin 2.8 L TSH Arterial Blood Glucose Arterial Blood Ionized Calcium Ur Specific [place] Urine Creatinine Coronavirus (PCR) Positive A 0709/09/20 09/10/20 17:21 21:15 08:00 WBC Hgb Hct RDW Plt Count Lymph % (Auto) [place] % (Auto) Lymph # (Auto) Seg Neutrophils % Seg Neuts % (Manual) Lymphocytes % (Manual) Seg Neutrophils # Seg Neutrophils # Man Lymphocytes # (Manual) PT INR D-Dimer Heparin Anti-Xa Level ABG pH POC ABG pCO2 POC ABG pO2 ABG Hemoglobin ABG Oxyhemoglobin ABG Sodium ABG Potassium ABG Chloride ABG Glucose Carboxyhemoglobin Sodium Potassium Chloride Carbon Dioxide BUN Creatinine Glucose POC Glucose 332 H 226 H 240 H Calcium Phosphorus Magnesium Ferritin AST Lactate Dehydrogenase C-Reactive Protein Total Protein Albumin TSH Arterial Blood Glucose Arterial Blood Ionized Calcium Ur Specific [place] Urine Creatinine Coronavirus (PCR) 09/10/20 09/10/20 09/10/20 12:12 15:14 16:43 WBC Hgb Hct RDW Plt Count Lymph % (Auto) [place] % (Auto) Lymph # (Auto) Seg Neutrophils % Seg Neuts % (Manual) Lymphocytes % (Manual) Seg Neutrophils # Seg Neutrophils # Man Lymphocytes # (Manual) PT INR D-Dimer Heparin Anti-Xa Level ABG pH POC ABG pCO2 48.5 H POC ABG pO2 51.9 L ABG Hemoglobin ABG Oxyhemoglobin 85.1 L ABG Sodium 135.6 L ABG Potassium ABG Chloride ABG Glucose 310 H Carboxyhemoglobin Sodium 132 L Potassium Chloride 93.2 L Carbon Dioxide BUN 43 H Creatinine 1.6 H Glucose 277 H POC Glucose 267 H Calcium Phosphorus Magnesium Ferritin AST 49 H Lactate Dehydrogenase C-Reactive Protein Total Protein 8.3 H Albumin 3.0 L TSH Arterial Blood Glucose 310 H Arterial Blood Ionized Calcium Ur Specific [place] Urine Creatinine Coronavirus (PCR) 09/10/20 09/10/20 09/11/20 21:34 23:33 05:56 WBC Hgb Hct RDW Plt Count Lymph % (Auto) [place] % (Auto) Lymph # (Auto) Seg Neutrophils % Seg Neuts % (Manual) Lymphocytes % (Manual) Seg Neutrophils # Seg Neutrophils # Man Lymphocytes # (Manual) PT INR D-Dimer Heparin Anti-Xa Level ABG pH POC ABG pCO2 POC ABG pO2 ABG Hemoglobin ABG Oxyhemoglobin ABG Sodium 135.9 L ABG Potassium ABG Chloride ABG Glucose 341 H Carboxyhemoglobin Sodium 133 L Potassium Chloride 94.2 L Carbon Dioxide BUN 54 H Creatinine 1.6 H Glucose 318 H POC Glucose 306 H Calcium Phosphorus Magnesium Ferritin AST 46 H Lactate Dehydrogenase C-Reactive Protein Total Protein Albumin 2.7 L TSH Arterial Blood Glucose 341 H Arterial Blood Ionized Calcium 4.5 L Ur Specific [place] Urine Creatinine Coronavirus (PCR) 09/11/20 09/11/20 09/11/20 05:56 07:22 09:00 WBC Hgb Hct RDW Plt Count Lymph % (Auto) [place] % (Auto) Lymph # (Auto) Seg Neutrophils % Seg Neuts % (Manual) Lymphocytes % (Manual) Seg Neutrophils # Seg Neutrophils # Man Lymphocytes # (Manual) PT INR D-Dimer Heparin Anti-Xa Level ABG pH POC ABG pCO2 POC ABG pO2 80.1 L ABG Hemoglobin ABG Oxyhemoglobin ABG Sodium 134.5 L ABG Potassium ABG Chloride ABG Glucose 334 H Carboxyhemoglobin Sodium Potassium Chloride Carbon Dioxide BUN Creatinine Glucose POC Glucose 305 H Calcium Phosphorus Magnesium Ferritin AST Lactate Dehydrogenase 755 H C-Reactive Protein 5.50 H Total Protein Albumin TSH Arterial Blood Glucose 334 H Arterial Blood Ionized Calcium Ur Specific [place] Urine Creatinine Coronavirus (PCR) 09/11/20 09/11/20 09/11/20 11:33 18:17 19:00 WBC Hgb Hct RDW Plt Count Lymph % (Auto) [place] % (Auto) Lymph # (Auto) Seg Neutrophils % Seg Neuts % (Manual) Lymphocytes % (Manual) Seg Neutrophils # Seg Neutrophils # Man Lymphocytes # (Manual) PT INR D-Dimer Heparin Anti-Xa Level ABG pH POC ABG pCO2 POC ABG pO2 146.4 H ABG Hemoglobin ABG Oxyhemoglobin 98.3 H ABG Sodium ABG Potassium ABG Chloride ABG Glucose 267 H Carboxyhemoglobin 0.4 L Sodium Potassium Chloride Carbon Dioxide BUN Creatinine Glucose POC Glucose 304 H 296 H Calcium Phosphorus Magnesium Ferritin AST Lactate Dehydrogenase C-Reactive Protein Total Protein Albumin TSH Arterial Blood Glucose 267 H Arterial Blood Ionized Calcium Ur Specific [place] Urine Creatinine Coronavirus (PCR) 09/11/20 09/11/20 09/11/20 20:30 22:23 Unknown WBC Hgb Hct RDW Plt Count Lymph % (Auto) [place] % (Auto) Lymph # (Auto) Seg Neutrophils % Seg Neuts % (Manual) Lymphocytes % (Manual) Seg Neutrophils # Seg Neutrophils # Man Lymphocytes # (Manual) PT INR D-Dimer 1324.85 H Heparin Anti-Xa Level ABG pH POC ABG pCO2 POC ABG pO2 ABG Hemoglobin ABG Oxyhemoglobin ABG Sodium ABG Potassium ABG Chloride ABG Glucose Carboxyhemoglobin Sodium Potassium Chloride Carbon Dioxide BUN Creatinine Glucose POC Glucose 268 H Calcium Phosphorus Magnesium Ferritin 1434.0 H AST Lactate Dehydrogenase C-Reactive Protein Total Protein Albumin TSH Arterial Blood Glucose Arterial Blood Ionized Calcium Ur Specific [place] Urine Creatinine Coronavirus (PCR) 09/11/20 09/12/20 09/12/20 Unknown 04:00 05:30 WBC Hgb Hct RDW Plt Count Lymph % (Auto) [place] % (Auto) Lymph # (Auto) Seg Neutrophils % Seg Neuts % (Manual) Lymphocytes % (Manual) Seg Neutrophils # Seg Neutrophils # Man Lymphocytes # (Manual) PT INR D-Dimer Heparin Anti-Xa Level ABG pH POC ABG pCO2 POC ABG pO2 190.7 H ABG Hemoglobin 17.7 H ABG Oxyhemoglobin 98.9 H ABG Sodium ABG Potassium ABG Chloride ABG Glucose 322 H Carboxyhemoglobin 0.2 L Sodium Potassium Chloride Carbon Dioxide BUN 58 H Creatinine 1.8 H Glucose 279 H POC Glucose 313 H Calcium 7.9 L Phosphorus Magnesium Ferritin AST Lactate Dehydrogenase C-Reactive Protein Total Protein Albumin TSH Arterial Blood Glucose 322 H Arterial Blood Ionized Calcium Ur Specific [place] Urine Creatinine Coronavirus (PCR) 09/12/20 09/12/20 09/12/20 08:43 11:58 13:30 WBC Hgb Hct RDW Plt Count Lymph % (Auto) [place] % (Auto) Lymph # (Auto) Seg Neutrophils % Seg Neuts % (Manual) Lymphocytes % (Manual) Seg Neutrophils # Seg Neutrophils # Man Lymphocytes # (Manual) PT INR D-Dimer Heparin Anti-Xa Level ABG pH POC ABG pCO2 POC ABG pO2 ABG Hemoglobin ABG Oxyhemoglobin ABG Sodium ABG Potassium ABG Chloride ABG Glucose Carboxyhemoglobin Sodium Potassium Chloride Carbon Dioxide BUN 51 H Creatinine 1.4 H Glucose 317 H POC Glucose 329 H Calcium Phosphorus Magnesium Ferritin AST Lactate Dehydrogenase C-Reactive Protein Total Protein Albumin 3.0 L TSH Arterial Blood Glucose Arterial Blood Ionized Calcium Ur Specific [place] Urine Creatinine 43.2 H Coronavirus (PCR) 09/12/20 09/12/20 09/12/20 17:17 17:17 17:55 WBC Hgb 14.5 H Hct 43.5 H RDW Plt Count Lymph % (Auto) [place] % (Auto) Lymph # (Auto) Seg Neutrophils % Seg Neuts % (Manual) 96.0 H Lymphocytes % (Manual) 1.0 L Seg Neutrophils # Seg Neutrophils # Man 9.8 H Lymphocytes # (Manual) 0.1 L PT INR D-Dimer Heparin Anti-Xa Level ABG pH POC ABG pCO2 POC ABG pO2 ABG Hemoglobin ABG Oxyhemoglobin ABG Sodium ABG Potassium ABG Chloride ABG Glucose Carboxyhemoglobin Sodium Potassium Chloride Carbon Dioxide BUN Creatinine Glucose POC Glucose 425 H Calcium Phosphorus Magnesium Ferritin AST Lactate Dehydrogenase C-Reactive Protein Total Protein Albumin TSH 0.067 L Arterial Blood Glucose Arterial Blood Ionized Calcium Ur Specific [place] Urine Creatinine Coronavirus (PCR) 09/12/20 09/13/20 09/13/20 23:19 03:32 04:22 WBC Hgb Hct RDW Plt Count Lymph % (Auto) [place] % (Auto) Lymph # (Auto) Seg Neutrophils % Seg Neuts % (Manual) Lymphocytes % (Manual) Seg Neutrophils # Seg Neutrophils # Man Lymphocytes # (Manual) PT INR D-Dimer Heparin Anti-Xa Level ABG pH 7.276 L 7.275 L POC ABG pCO2 54.0 H 54.7 H POC ABG pO2 46.6 L 47.1 L ABG Hemoglobin ABG Oxyhemoglobin 78.9 L 79.4 L ABG Sodium ABG Potassium ABG Chloride ABG Glucose 260 H 261 H Carboxyhemoglobin Sodium Potassium Chloride Carbon Dioxide BUN Creatinine Glucose POC Glucose 348 H Calcium Phosphorus Magnesium Ferritin AST Lactate Dehydrogenase C-Reactive Protein Total Protein Albumin TSH Arterial Blood Glucose 260 H 261 H Arterial Blood Ionized Calcium Ur Specific [place] Urine Creatinine Coronavirus (PCR) 09/13/20 09/13/20 09/13/20 04:52 11:53 17:13 WBC Hgb Hct RDW Plt Count Lymph % (Auto) [place] % (Auto) Lymph # (Auto) Seg Neutrophils % Seg Neuts % (Manual) Lymphocytes % (Manual) Seg Neutrophils # Seg Neutrophils # Man Lymphocytes # (Manual) PT INR D-Dimer Heparin Anti-Xa Level ABG pH POC ABG pCO2 POC ABG pO2 ABG Hemoglobin ABG Oxyhemoglobin ABG Sodium ABG Potassium ABG Chloride ABG Glucose Carboxyhemoglobin Sodium Potassium Chloride Carbon Dioxide BUN Creatinine Glucose POC Glucose 229 H 302 H 356 H Calcium Phosphorus Magnesium Ferritin AST Lactate Dehydrogenase C-Reactive Protein Total Protein Albumin TSH Arterial Blood Glucose Arterial Blood Ionized Calcium Ur Specific [place] Urine Creatinine Coronavirus (PCR) 09/13/20 09/13/20 09/13/20 23:46 Unknown Unknown WBC Hgb Hct RDW Plt Count 135 L Lymph % (Auto) [place] % (Auto) Lymph # (Auto) Seg Neutrophils % Seg Neuts % (Manual) Lymphocytes % (Manual) Seg Neutrophils # Seg Neutrophils # Man Lymphocytes # (Manual) PT INR D-Dimer Heparin Anti-Xa Level ABG pH POC ABG pCO2 POC ABG pO2 ABG Hemoglobin ABG Oxyhemoglobin ABG Sodium ABG Potassium ABG Chloride ABG Glucose Carboxyhemoglobin Sodium Potassium Chloride Carbon Dioxide BUN 54 H Creatinine 1.6 H Glucose 255 H POC Glucose 263 H Calcium Phosphorus Magnesium Ferritin AST Lactate Dehydrogenase C-Reactive Protein Total Protein Albumin 2.8 L TSH Arterial Blood Glucose Arterial Blood Ionized Calcium Ur Specific [place] Urine Creatinine Coronavirus (PCR) 09/14/20 09/14/20 09/14/20 05:46 10:53 10:53 WBC Hgb Hct RDW Plt Count Lymph % (Auto) [place] % (Auto) Lymph # (Auto) Seg Neutrophils % Seg Neuts % (Manual) Lymphocytes % (Manual) Seg Neutrophils # Seg Neutrophils # Man Lymphocytes # (Manual) PT INR D-Dimer > 02994 H Heparin Anti-Xa Level ABG pH POC ABG pCO2 POC ABG pO2 ABG Hemoglobin ABG Oxyhemoglobin ABG Sodium ABG Potassium ABG Chloride ABG Glucose Carboxyhemoglobin Sodium Potassium Chloride Carbon Dioxide BUN 71 H Creatinine 2.8 H D Glucose 167 H POC Glucose 226 H Calcium Phosphorus 4.90 H D Magnesium 2.40 H Ferritin AST Lactate Dehydrogenase C-Reactive Protein 5.40 H Total Protein 5.9 L Albumin 2.7 L TSH Arterial Blood Glucose Arterial Blood Ionized Calcium Ur Specific [place] Urine Creatinine Coronavirus (PCR) 09/14/20 09/14/20 09/14/20 11:33 13:45 17:29 WBC Hgb Hct RDW Plt Count Lymph % (Auto) [place] % (Auto) Lymph # (Auto) Seg Neutrophils % Seg Neuts % (Manual) Lymphocytes % (Manual) Seg Neutrophils # Seg Neutrophils # Man Lymphocytes # (Manual) PT INR D-Dimer Heparin Anti-Xa Level ABG pH 7.225 L POC ABG pCO2 60.1 H POC ABG pO2 ABG Hemoglobin ABG Oxyhemoglobin ABG Sodium ABG Potassium 5.2 H ABG Chloride 109.0 H ABG Glucose 205 H Carboxyhemoglobin Sodium Potassium Chloride Carbon Dioxide BUN Creatinine Glucose POC Glucose 166 H 202 H Calcium Phosphorus Magnesium Ferritin AST Lactate Dehydrogenase C-Reactive Protein Total Protein Albumin TSH Arterial Blood Glucose 205 H Arterial Blood Ionized Calcium Ur Specific [place] Urine Creatinine Coronavirus (PCR) 09/15/20 09/15/20 09/15/20 00:19 03:10 03:10 WBC 13.5 H Hgb Hct RDW Plt Count 77 L Lymph % (Auto) 3.9 L [place] % (Auto) Lymph # (Auto) 0.5 L Seg Neutrophils % 89.9 H Seg Neuts % (Manual) Lymphocytes % (Manual) Seg Neutrophils # 12.1 H Seg Neutrophils # Man Lymphocytes # (Manual) PT INR D-Dimer Heparin Anti-Xa Level ABG pH POC ABG pCO2 POC ABG pO2 ABG Hemoglobin ABG Oxyhemoglobin ABG Sodium ABG Potassium ABG Chloride ABG Glucose Carboxyhemoglobin Sodium Potassium 5.7 H Chloride 107.7 H Carbon Dioxide 21 L BUN 85 H Creatinine 4.1 H Glucose 166 H POC Glucose 174 H Calcium Phosphorus Magnesium Ferritin AST Lactate Dehydrogenase C-Reactive Protein Total Protein 5.9 L Albumin 2.3 L TSH Arterial Blood Glucose Arterial Blood Ionized Calcium Ur Specific [place] Urine Creatinine Coronavirus (PCR) 09/15/20 09/15/20 09/15/20 03:10 03:10 05:34 WBC Hgb Hct RDW Plt Count Lymph % (Auto) [place] % (Auto) Lymph # (Auto) Seg Neutrophils % Seg Neuts % (Manual) Lymphocytes % (Manual) Seg Neutrophils # Seg Neutrophils # Man Lymphocytes # (Manual) PT INR D-Dimer > 92418 H Heparin Anti-Xa Level ABG pH POC ABG pCO2 POC ABG pO2 ABG Hemoglobin ABG Oxyhemoglobin ABG Sodium ABG Potassium ABG Chloride ABG Glucose Carboxyhemoglobin Sodium Potassium Chloride Carbon Dioxide BUN Creatinine Glucose POC Glucose 146 H Calcium Phosphorus 6.50 H D Magnesium 2.40 H Ferritin AST Lactate Dehydrogenase C-Reactive Protein 3.90 H Total Protein Albumin TSH Arterial Blood Glucose Arterial Blood Ionized Calcium Ur Specific [place] Urine Creatinine Coronavirus (PCR) 09/15/20 09/15/20 09/15/20 06:12 12:30 13:25 WBC Hgb Hct RDW Plt Count Lymph % (Auto) [place] % (Auto) Lymph # (Auto) Seg Neutrophils % Seg Neuts % (Manual) Lymphocytes % (Manual) Seg Neutrophils # Seg Neutrophils # Man Lymphocytes # (Manual) PT INR D-Dimer Heparin Anti-Xa Level ABG pH 7.178 L POC ABG pCO2 58.7 H POC ABG pO2 65.2 L ABG Hemoglobin ABG Oxyhemoglobin 90.5 L ABG Sodium ABG Potassium 5.1 H ABG Chloride 110.0 H ABG Glucose 173 H Carboxyhemoglobin Sodium Potassium 5.5 H 5.4 H Chloride 108.0 H Carbon Dioxide BUN 87 H 89 H Creatinine 4.3 H 4.2 H Glucose 151 H 180 H POC Glucose Calcium 8.2 L Phosphorus 6.70 H Magnesium Ferritin AST Lactate Dehydrogenase C-Reactive Protein Total Protein Albumin TSH Arterial Blood Glucose 173 H Arterial Blood Ionized Calcium Ur Specific [place] Urine Creatinine Coronavirus (PCR) 09/15/20 09/15/20 09/15/20 13:33 14:00 14:00 WBC Hgb Hct RDW Plt Count 86 L Lymph % (Auto) [place] % (Auto) Lymph # (Auto) Seg Neutrophils % Seg Neuts % (Manual) Lymphocytes % (Manual) Seg Neutrophils # Seg Neutrophils # Man Lymphocytes # (Manual) PT 18.8 H INR 1.52 H D-Dimer Heparin Anti-Xa Level ABG pH POC ABG pCO2 POC ABG pO2 ABG Hemoglobin ABG Oxyhemoglobin ABG Sodium ABG Potassium ABG Chloride ABG Glucose Carboxyhemoglobin Sodium Potassium Chloride Carbon Dioxide BUN Creatinine Glucose POC Glucose 146 H Calcium Phosphorus Magnesium Ferritin AST Lactate Dehydrogenase C-Reactive Protein Total Protein Albumin TSH Arterial Blood Glucose Arterial Blood Ionized Calcium Ur Specific [place] Urine Creatinine Coronavirus (PCR) 09/15/20 09/15/20 09/15/20 18:02 21:10 23:04 WBC Hgb Hct RDW Plt Count Lymph % (Auto) [place] % (Auto) Lymph # (Auto) Seg Neutrophils % Seg Neuts % (Manual) Lymphocytes % (Manual) Seg Neutrophils # Seg Neutrophils # Man Lymphocytes # (Manual) PT INR D-Dimer Heparin Anti-Xa Level 0.78 H ABG pH POC ABG pCO2 POC ABG pO2 ABG Hemoglobin ABG Oxyhemoglobin ABG Sodium ABG Potassium ABG Chloride ABG Glucose Carboxyhemoglobin Sodium Potassium Chloride Carbon Dioxide BUN Creatinine Glucose POC Glucose 241 H 296 H Calcium Phosphorus Magnesium Ferritin AST Lactate Dehydrogenase C-Reactive Protein Total Protein Albumin TSH Arterial Blood Glucose Arterial Blood Ionized Calcium Ur Specific [place] Urine Creatinine Coronavirus (PCR) 09/15/20 09/16/20 09/16/20 23:33 02:45 04:00 WBC 22.7 H Hgb Hct RDW Plt Count 105 L Lymph % (Auto) [place] % (Auto) Lymph # (Auto) Seg Neutrophils % Seg Neuts % (Manual) Lymphocytes % (Manual) Seg Neutrophils # Seg Neutrophils # Man Lymphocytes # (Manual) PT INR D-Dimer Heparin Anti-Xa Level ABG pH 7.171 L POC ABG pCO2 57.1 H POC ABG pO2 144.1 H ABG Hemoglobin ABG Oxyhemoglobin ABG Sodium ABG Potassium 5.0 H ABG Chloride ABG Glucose 273 H Carboxyhemoglobin Sodium Potassium Chloride Carbon Dioxide BUN Creatinine Glucose POC Glucose 298 H Calcium Phosphorus Magnesium Ferritin AST Lactate Dehydrogenase C-Reactive Protein Total Protein Albumin TSH Arterial Blood Glucose 273 H Arterial Blood Ionized Calcium 4.5 L Ur Specific [place] Urine Creatinine Coronavirus (PCR) 09/16/20 09/16/20 09/16/20 04:20 05:10 11:38 WBC Hgb Hct RDW Plt Count Lymph % (Auto) [place] % (Auto) Lymph # (Auto) Seg Neutrophils % Seg Neuts % (Manual) Lymphocytes % (Manual) Seg Neutrophils # Seg Neutrophils # Man Lymphocytes # (Manual) PT INR D-Dimer Heparin Anti-Xa Level ABG pH POC ABG pCO2 POC ABG pO2 ABG Hemoglobin ABG Oxyhemoglobin ABG Sodium ABG Potassium ABG Chloride ABG Glucose Carboxyhemoglobin Sodium Potassium 5.4 H Chloride Carbon Dioxide BUN 75 H Creatinine 3.7 H Glucose 265 H POC Glucose 269 H 279 H Calcium Phosphorus Magnesium Ferritin AST 46 H Lactate Dehydrogenase C-Reactive Protein Total Protein 6.2 L Albumin 2.9 L TSH Arterial Blood Glucose Arterial Blood Ionized Calcium Ur Specific [place] Urine Creatinine Coronavirus (PCR) 09/16/20 09/16/20 09/16/20 13:45 17:21 23:37 WBC Hgb Hct RDW Plt Count Lymph % (Auto) [place] % (Auto) Lymph # (Auto) Seg Neutrophils % Seg Neuts % (Manual) Lymphocytes % (Manual) Seg Neutrophils # Seg Neutrophils # Man Lymphocytes # (Manual) PT INR D-Dimer Heparin Anti-Xa Level ABG pH 7.156 L POC ABG pCO2 59.8 H POC ABG pO2 48.2 L ABG Hemoglobin ABG Oxyhemoglobin 78.1 L ABG Sodium ABG Potassium 5.2 H ABG Chloride ABG Glucose 302 H Carboxyhemoglobin Sodium Potassium Chloride Carbon Dioxide BUN Creatinine Glucose POC Glucose 285 H 385 H Calcium Phosphorus Magnesium Ferritin AST Lactate Dehydrogenase C-Reactive Protein Total Protein Albumin TSH Arterial Blood Glucose 302 H Arterial Blood Ionized Calcium 4.4 L Ur Specific [place] Urine Creatinine Coronavirus (PCR) 09/17/20 09/17/20 09/17/20 04:52 04:52 04:52 WBC 19.4 H Hgb Hct RDW 15.5 H Plt Count 91 L Lymph % (Auto) [place] % (Auto) Lymph # (Auto) Seg Neutrophils % Seg Neuts % (Manual) Lymphocytes % (Manual) Seg Neutrophils # Seg Neutrophils # Man Lymphocytes # (Manual) PT INR D-Dimer > 90017 H Heparin Anti-Xa Level ABG pH POC ABG pCO2 POC ABG pO2 ABG Hemoglobin ABG Oxyhemoglobin ABG Sodium ABG Potassium ABG Chloride ABG Glucose Carboxyhemoglobin Sodium Potassium 5.1 H Chloride Carbon Dioxide BUN 68 H Creatinine 4.1 H Glucose 291 H POC Glucose Calcium 8.3 L Phosphorus 5.60 H Magnesium Ferritin AST Lactate Dehydrogenase 729 H C-Reactive Protein 5.30 H Total Protein Albumin TSH Arterial Blood Glucose Arterial Blood Ionized Calcium Ur Specific [place] Urine Creatinine Coronavirus (PCR) 09/17/20 09/17/20 09/17/20 04:52 05:20 12:02 WBC Hgb Hct RDW Plt Count Lymph % (Auto) [place] % (Auto) Lymph # (Auto) Seg Neutrophils % Seg Neuts % (Manual) Lymphocytes % (Manual) Seg Neutrophils # Seg Neutrophils # Man Lymphocytes # (Manual) PT INR D-Dimer Heparin Anti-Xa Level ABG pH POC ABG pCO2 POC ABG pO2 ABG Hemoglobin ABG Oxyhemoglobin ABG Sodium ABG Potassium ABG Chloride ABG Glucose Carboxyhemoglobin Sodium Potassium Chloride Carbon Dioxide BUN Creatinine Glucose POC Glucose 312 H 240 H Calcium Phosphorus Magnesium Ferritin 1323.0 H AST Lactate Dehydrogenase C-Reactive Protein Total Protein Albumin TSH Arterial Blood Glucose Arterial Blood Ionized Calcium Ur Specific [place] Urine Creatinine Coronavirus (PCR) Chest x-ray: image reviewed (Bilateral alveolar infiltrates- diffuse and extensive, no pneumothorax or pneumomediastinum) Allied health notes reviewed: RT
--- NOTE | 2020-09-17 13:44 | Progress Note ---
Assessment and Plan Assessment and plan: 72-year-old female with HTN, DM, OSH, OA admitted for COVID-19 pneumonia, sepsis, acute hypoxic respiratory failure, NICOLASA Neuro: Acute metabolic encephalopathy -Sedated with propofol, fentanyl, versed -RASS goal neg 4 -PERRL -family updated on plan of care -case management following Cardio: SB, H/O HTN, hypotension due to covid pna/sepsis -Atropine at bedside -Hold home Coreg-> no rate lowering meds; s/p bradycardia -SR-ST HR 60-70 -trend QT -NE, vaso for hypotension -Hydralazine IV as needed for SBP greater than 160 -normal biV function on echo -CVP- trend daily Respiratory: Acute hypoxic respiratory failure due to covid pna , Acute hypoxemic respiratory failure, COVID-19 infection, Bilateral pneumonia -Intubated 09/10 -Presented with pneumonia -CCM consulted, appreciate recommendations -VAP bundle -Wean mechanical ventilation as tolerated -Current vent settings: AC, 30/450/18/100 -see RT notes for titration/changes -Serial ABGs -Serial CXRs -proned 09/13-09/17 -continue duonebs GI: Morbid obesity, TF, cholelithiasis, transaminitis -Nutrition consulted, appreciate recommendations -tolerating TF -PPI -BR: Colace -BM 09/10 -Trend LFTs and tbili : Acute kidney injury 2/2 VMN -Presented with a BUN/creatinine of 1.5/32 -Avoid nephrotoxic medication -Nephrology consulted, appreciate recommendations -Strict intake and output -bladder scanning with intermittent straight caths -Daily weights -Trend BMP -renal consulted for uptrending Cr urine electrolytes and renal U/S ordered -09/15/2020 HD started s/p vascath placement -HD per nephrology -AM labs ordered - 24 hr fluid status: (+) 2626 Heme: Thrombocytopenia, elevated D-dimer -Leukopenia likely secondary to COVID-19 infection-resolved -Thrombocytopenia likely secondary to sepsis -09/08 CTA chest shows no evidence of pulmonary embolism, multifocal airspace opacities with nodular densities and groundglass opacities in bilateral lungs, cholelithiasis, cholelithiasis -doppler BLE neg for DVT -Blood tinged sputum -Low dose heparin gtt -Trend CBC -Transfuse for hemoglobin less than 7 ID: Sepsis, COVID-19 pneumonia, Acute hypoxemic respiratory failure, Acute respiratory distress syndrome, COVID-19 infection, Bilateral pneumonia, Elevated serum inflammatory markers to include D-dimer, ferritin and LDH, skin breakdown -Skin breakdown secondary to proning, WOCN consult, patient recommendations -Wound care per nursing -COVID-19 PCR (+) on 09/09 -Infectious disease consulted, appreciate recommendations -IV tocilizumab x1 -Dexamethasone 09/10 through 09/19 -Remdesivir 09/11 through 09/14 -Azithromycin 09/09 through 09/13, Rocephin 09/09 through 09/13 -Contact/droplet precaution -Trend COVID-19 inflammatory markers -on zinc and Vit C -ID started renally dosed cefepime/Vanco d/t increasing vasopresser use Endo: h/o DM; hyperglycemia; morbidly obese -Accu-Checks every 6hours -Avoid hypoglycemia -SSI -lantus scheduled, titrate as needed Disposition: ICU Full code Lines: A-line, IJ TLC, IJ Vascath The high probability of a clinically significant, sudden or life threatening deterioration of the [multi] system(s) required my full and direct attention, intervention and personal management. The aggregate critical care time was [90] minutes. This time is in addition to time spent performing reported procedures but includes the following: [x] Data Review and interpretation [x] Patient assessment and monitoring of vital signs [x] Documentation [x] Medication orders and management Disposition Plan: icu Total Time Spent with Patient (Minutes): 90 History Interval history: This 72-year-old female with HTN, DM, OHS, OA presents the emergency department on 09/08 with generalized weakness, loss of appetite, dry cough, loss of sense of smell, smell and taste, shortness of breath, malaise, decreased exercise t olerance over the past 3 days with progressive worsening symptoms. Patient's daughter provided additional history and stated patient's blood glucose level was being checked and the patient "threw back her head and passed out". EMS was notified and upon arrival patient was found to be in distress transported to [facility]. Patient was evaluated emergency department and had a pulse ox on room air of 82% consistent with acute hypoxic respiratory failure, CXR showed bilateral pneumonia, NICOLASA with ATN SSO to COVID-19 infection. Patient was admitted to the medical floor initiated COVID-19 protocol as well as pneumonia protocol. 7/25: Patient was intubated by ED physician and transferred to the ICU. 09/11: Infectious disease was consulted today, patient was placed on vasopressors due to hypotension despite receiving 1 L IV fluid, Lantus started, bilateral lower extremity Doppler ultrasound ordered, A-line and CVL placed. Late in the evening patient was exhibiting sinus bradycardia, EKG ordered along with stat CMP which showed NICOLASA. Stat ABG ordered which showed elevated PaO2 at 146 otherwise unremarkable on 100% FiO2. 09/12 bradycardia overnight requiring atropine x 1 and dopamine drip 09/13 tamia overnight 09/14 PRONED 16 H over the last day 09/16: Patient was proned overnight, per ID afebrile reculture and start cefepime and vancomycin, patient received hemodialysis today. Acidosis noted on ABG, vent changes per CCM and HD requested, 2 A of bicarb given. Has hyperkalemia today which has been treated. 09/17: again proned, slight hyperkalemia today. HD per nephro. Remains on sedation and vasopressor suppoprt which was increased with HD yesterday. Hospitalist Physical - Constitutional Vitals: Temp Pulse Resp BP Pulse Ox 100.4 F H 91 H 30 H 108/42 90 09/17/20 03:52 09/17/20 12:18 09/17/20 12:00 09/17/20 12:18 09/17/20 12:18 General appearance: Present: no acute distress, well-nourished, obese - EENT Eyes: Absent: PERRL (jerrod) - Neck Neck: Absent: normal ROM (jerrod) - Respiratory Respiratory effort: normal Respiratory: bilateral: diminished - Cardiovascular Rhythm: regular - Extremities Extremities: pulses intact Extremity abnormal: edema Peripheral Pulses: within normal limits - Integumentary Integumentary: Present: warm, dry - Psychiatric Psychiatric: other (sedated) - Neurologic Neurologic: other (sedated) - Allied Health Allied health notes reviewed: nursing, RT, social work HEART Score - HEART Score Troponin: Troponin T < 0.010 ng/mL (0.00-0.029) 09/09/20 00:39 Results - Labs CBC & Chem 7: 09/17/20 04:52 09/17/20 04:52 Labs: Laboratory Last Values WBC 19.4 K/mm3 (4.5-11.0) H 09/17/20 04:52 RBC 3.98 M/mm3 (3.65-5.03) 09/17/20 04:52 Hgb 12.2 gm/dl (10.1-14.3) 09/17/20 04:52 Hct 37.8 % (30.3-42.9) 09/17/20 04:52 MCV 95 fl (79-97) 09/17/20 04:52 MCH 31 pg (28-32) 09/17/20 04:52 MCHC 32 % (30-34) 09/17/20 04:52 RDW 15.5 % (13.2-15.2) H 09/17/20 04:52 Plt Count 91 K/mm3 (140-440) L 09/17/20 04:52 Lymph % (Auto) 3.9 % (13.4-35.0) L 09/15/20 03:10 Bennett % (Auto) 5.9 % (0.0-7.3) 09/15/20 03:10 Eos % (Auto) 0.2 % (0.0-4.3) 09/15/20 03:10 Baso % (Auto) 0.1 % (0.0-1.8) 09/15/20 03:10 Lymph # (Auto) 0.5 K/mm3 (1.2-5.4) L 09/15/20 03:10 Bennett # (Auto) 0.8 K/mm3 (0.0-0.8) 09/15/20 03:10 Eos # (Auto) 0.0 K/mm3 (0.0-0.4) 09/15/20 03:10 Baso # (Auto) 0.0 K/mm3 (0.0-0.1) 09/15/20 03:10 Add Manual Diff Complete 09/12/20 17:17 Total Counted 100 09/12/20 17:17 Seg Neutrophils % 89.9 % (40.0-70.0) H 09/15/20 03:10 Seg Neuts % (Manual) 96.0 % (40.0-70.0) H 09/12/20 17:17 Lymphocytes % (Manual) 1.0 % (13.4-35.0) L 09/12/20 17:17 Monocytes % (Manual) 3.0 % (0.0-7.3) 09/12/20 17:17 Nucleated RBC % Not Reportable 09/12/20 17:17 Seg Neutrophils # 12.1 K/mm3 (1.8-7.7) H 09/15/20 03:10 Seg Neutrophils # Man 9.8 K/mm3 (1.8-7.7) H 09/12/20 17:17 Band Neutrophils # 0.0 K/mm3 09/12/20 17:17 Lymphocytes # (Manual) 0.1 K/mm3 (1.2-5.4) L 09/12/20 17:17 Abs React Lymphs (Man) 0.0 K/mm3 09/12/20 17:17 Monocytes # (Manual) 0.3 K/mm3 (0.0-0.8) 09/12/20 17:17 Eosinophils # (Manual) 0.0 K/mm3 (0.0-0.4) 09/12/20 17:17 Basophils # (Manual) 0.0 K/mm3 (0.0-0.1) 09/12/20 17:17 Metamyelocytes # 0.0 K/mm3 09/12/20 17:17 Myelocytes # 0.0 K/mm3 09/12/20 17:17 Promyelocytes # 0.0 K/mm3 09/12/20 17:17 Blast Cells # 0.0 K/mm3 09/12/20 17:17 WBC Morphology Not Reportable 09/12/20 17:17 Hypersegmented Neuts Not Reportable 09/12/20 17:17 Hyposegmented Neuts Not Reportable 09/12/20 17:17 Hypogranular Neuts Not Reportable 09/12/20 17:17 Smudge Cells Not Reportable 09/12/20 17:17 Toxic Granulation Not Reportable 09/12/20 17:17 Toxic Vacuolation Not Reportable 09/12/20 17:17 Dohle Bodies Not Reportable 09/12/20 17:17 Pelger-Huet Anomaly Not Reportable 09/12/20 17:17 Katrin Rods Not Reportable 09/12/20 17:17 Platelet Estimate Consistent w auto 09/12/20 17:17 Clumped Platelets Not Reportable 09/12/20 17:17 Plt Clumps, EDTA Not Reportable 09/12/20 17:17 Large Platelets Not Reportable 09/12/20 17:17 Giant Platelets Not Reportable 09/12/20 17:17 Platelet Satelliting Not Reportable 09/12/20 17:17 Plt Morphology Comment Not Reportable 09/12/20 17:17 RBC Morphology Normal 09/12/20 17:17 Dimorphic RBCs Not Reportable 09/12/20 17:17 Polychromasia Not Reportable 09/12/20 17:17 Hypochromasia Not Reportable 09/12/20 17:17 Poikilocytosis Not Reportable 09/12/20 17:17 Anisocytosis Not Reportable 09/12/20 17:17 Microcytosis Not Reportable 09/12/20 17:17 Macrocytosis Not Reportable 09/12/20 17:17 Spherocytes Not Reportable 09/12/20 17:17 Pappenheimer Bodies Not Reportable 09/12/20 17:17 Sickle Cells Not Reportable 09/12/20 17:17 Target Cells Not Reportable 09/12/20 17:17 Tear Drop Cells Not Reportable 09/12/20 17:17 Ovalocytes Not Reportable 09/12/20 17:17 Helmet Cells Not Reportable 09/12/20 17:17 [place] Bodies Not Reportable 09/12/20 17:17 [place] Rings Not Reportable 09/12/20 17:17 [place] Cells Not Reportable 09/12/20 17:17 Bite Cells Not Reportable 09/12/20 17:17 Crenated Cell Not Reportable 09/12/20 17:17 Elliptocytes Not Reportable 09/12/20 17:17 Acanthocytes (Spur) Not Reportable 09/12/20 17:17 Rouleaux Not Reportable 09/12/20 17:17 Hemoglobin C Crystals Not Reportable 09/12/20 17:17 Schistocytes Not Reportable 09/12/20 17:17 Malaria parasites Not Reportable 09/12/20 17:17 [place] Bodies Not Reportable 09/12/20 17:17 Hem Pathologist Commnt No 09/12/20 17:17 PT 18.8 Sec. (12.2-14.9) H 09/15/20 14:00 INR 1.52 (0.87-1.13) H 09/15/20 14:00 APTT 32.7 Sec. (24.2-36.6) 09/15/20 14:00 D-Dimer > 45720 ng/mlDDU (0-234) H 09/17/20 04:52 Heparin Anti-Xa Level 0.34 U.I./ml (0.3-0.7) 09/17/20 04:52 ABG pH 7.156 (7.320-7.450) L 09/16/20 13:45 POC ABG pCO2 59.8 mmHg (32.0-48.0) H 09/16/20 13:45 POC ABG pO2 48.2 mmHg (83-108) L 09/16/20 13:45 POC ABG HCO3 20.6 09/16/20 13:45 ABG O2 Saturation 79.1 (0-100) 09/16/20 13:45 POC ABG Base Excess -8.6 09/16/20 13:45 ABG Hemoglobin 12.6 (12.0-17.5) 09/16/20 13:45 ABG Oxyhemoglobin 78.1 (94-98) L 09/16/20 13:45 ABG Methemoglobin 0.3 (0.0-1.5) 09/16/20 13:45 ABG Sodium 136.6 mmol/L (136.0-145.0) 09/16/20 13:45 ABG Potassium 5.2 mmol/L (3.40-4.50) H 09/16/20 13:45 ABG Chloride 106.0 mmol/L (98-107) 09/16/20 13:45 ABG Glucose 302 mg/dL (65-95) H 09/16/20 13:45 Carboxyhemoglobin 1.0 (0.5-1.5) 09/16/20 13:45 FiO2 % 100.0 09/16/20 13:45 Sodium 141 mmol/L (137-145) 09/17/20 04:52 Potassium 5.1 mmol/L (3.6-5.0) H 09/17/20 04:52 Chloride 101.8 mmol/L (98-107) 09/17/20 04:52 Carbon Dioxide 22 mmol/L (22-30) 09/17/20 04:52 Anion Gap 22 mmol/L 09/17/20 04:52 BUN 68 mg/dL (7-17) H 09/17/20 04:52 Creatinine 4.1 mg/dL (0.6-1.2) H 09/17/20 04:52 Estimated GFR 13 ml/min 09/17/20 04:52 BUN/Creatinine Ratio 17 % 09/17/20 04:52 Glucose 291 mg/dL (65-100) H 09/17/20 04:52 POC Glucose 240 mg/dL (70-105) H 09/17/20 12:02 Osmolality 329 Mosm/kg 09/12/20 17:17 Lactic Acid 1.90 mmol/L (0.7-2.0) 09/12/20 17:17 Calcium 8.3 mg/dL (8.4-10.2) L 09/17/20 04:52 Phosphorus 5.60 mg/dL (2.5-4.5) H 09/17/20 04:52 Magnesium 2.30 mg/dL (1.7-2.3) 09/17/20 04:52 Ferritin 1323.0 ng/mL (10.0-200.0) H 09/17/20 04:52 Total Bilirubin 0.20 mg/dL (0.1-1.2) 09/16/20 04:20 AST 46 units/L (5-40) H 09/16/20 04:20 ALT 27 units/L (7-56) 09/16/20 04:20 Alkaline Phosphatase 112 units/L (35-129) 09/16/20 04:20 Lactate Dehydrogenase 729 units/L (91-180) H 09/17/20 04:52 Troponin T < 0.010 ng/mL (0.00-0.029) 09/09/20 00:39 C-Reactive Protein 5.30 mg/dL (0.00-1.30) H 09/17/20 04:52 NT-Pro-B Natriuret Pep 503.6 pg/mL (0-900) 09/08/20 17:37 Total Protein 6.2 g/dL (6.3-8.2) L 09/16/20 04:20 Albumin 2.9 g/dL (3.9-5) L 09/16/20 04:20 Albumin/Globulin Ratio 0.9 % 09/16/20 04:20 Lipase 47 units/L (13-60) 09/08/20 17:37 Procalcitonin 0.74 ng/mL (<0.15) 09/15/20 03:10 TSH 0.067 mlU/mL (0.270-4.200) L 09/12/20 17:17 Arterial Blood Glucose 302 mg/dL (65-95) H 09/16/20 13:45 Arterial Blood Ionized Calcium 4.4 mg/dL (4.6-5.3) L 09/16/20 13:45 Urine Color Yellow (Yellow) 09/12/20 13:30 Urine Turbidity Clear (Clear) 09/12/20 13:30 Urine pH 5.0 (5.0-7.0) 09/12/20 13:30 Ur Specific [place] 1.011 (1.003-1.030) 09/12/20 13:30 Urine Protein 100 mg/dl mg/dL (Negative) 09/12/20 13:30 Urine Glucose (UA) 50 mg/dL (Negative) 09/12/20 13:30 Urine Ketones Neg mg/dL (Negative) 09/12/20 13:30 Urine Blood Lg (Negative) 09/12/20 13:30 Urine Nitrite Neg (Negative) 09/12/20 13:30 Urine Bilirubin Neg (Negative) 09/12/20 13:30 Urine Urobilinogen < 2.0 mg/dL (<2.0) 09/12/20 13:30 Ur Leukocyte Esterase Neg (Negative) 09/12/20 13:30 Urine WBC (Auto) 2.0 /HPF (0.0-6.0) 09/12/20 13:30 Urine RBC (Auto) 47.0 /HPF (0.0-6.0) 09/12/20 13:30 U Epithel Cells (Auto) 2.0 /HPF (0-13.0) 09/08/20 22:24 Urine Bacteria (Auto) 1+ /HPF (Negative) 09/12/20 13:30 Urine Mucus Few /HPF 09/12/20 13:30 Urine Osmolality 340 Mosm/kg 09/12/20 13:30 Urine Creatinine 43.2 mg/dL (0.1-20.0) H 09/12/20 13:30 Urine Sodium 58 mmol/L 09/12/20 13:30 Urine Urea Nitrogen 479 09/12/20 13:30 Urine Opiates Screen Presumptive negative 09/08/20 22:24 Urine Methadone Screen Presumptive negative 09/08/20 22:24 Ur Barbiturates Screen Presumptive negative 09/08/20 22:24 Ur Phencyclidine Scrn Presumptive negative 09/08/20 22:24 Ur Amphetamines Screen Presumptive negative 09/08/20 22:24 U Benzodiazepines Scrn Presumptive negative 09/08/20 22:24 Urine Cocaine Screen Presumptive negative 09/08/20 22:24 U Marijuana (THC) Screen Presumptive negative 09/08/20 22:24 Drugs of Abuse Note Disclamer 09/08/20 22:24 Coronavirus (PCR) Positive (Negative) A 09/09/20 09:00 Hepatitis A IgM Ab Non-reactive (NonReactive) 09/15/20 13:25 Hep Bs Antigen Non-reactive (Negative) 09/15/20 13:25 Hep B Core IgM Ab Non-reactive (NonReactive) 09/15/20 13:25 Hepatitis C Antibody Non-reactive (NonReactive) 09/15/20 13:25 Microbiology: Microbiology 09/10/20 00:02 Tracheal Aspirate Sputum Culture - Final Begum/IV: Voiding Method Indwelling Catheter Active Medications - Current Medications Current Medications: Generic Name Dose Route Start Last Admin Trade Name Freq PRN Reason Stop Dose Admin Acetaminophen 650 mg 09/08/20 20:23 Acetaminophen 325 Mg Tab PO Q4H PRN Pain MILD(1-3)/Fever >100.5/CORTEZ Albuterol 2.5 mg 09/08/20 20:23 Albuterol 2.5 Mg/3 Ml Nebu IH Q4HRT PRN Shortness Of Breath Albuterol/Ipratropium 1 ampul 09/13/20 12:30 09/17/20 09:01 Ipratropium/Albuterol Sulfate 3 Ml Ampul.Neb IH 1 ampul BID ISIAH Administration Lipase/Protease/Amylase 1 each 09/11/20 11:45 Lipase 10,500/Protease 25,000/Amylase 43,750 (Units) Dr Issa FEEDTUBE PRN PRN For Clogged Feeding Tube Ascorbic Acid 500 mg 09/08/20 22:00 09/17/20 09:01 Ascorbic Acid 500 Mg Tab PO 500 mg BID ISIAH Administration Cholecalciferol 1,000 unit 09/09/20 10:00 09/17/20 09:01 Cholecalciferol (Vit D3) 1000 Unit (25 Mcg) Tab PO 1,000 unit QDAY ISIAH Administration Dexamethasone 8 mg 09/10/20 17:00 09/17/20 09:01 Dexamethasone 4 Mg/Ml Vial IV 09/19/20 10:01 8 mg DAILY ISIAH Administration Famotidine 10 mg 09/14/20 22:00 09/17/20 09:01 Famotidine 20 Mg/2 Ml Inj IV 10 mg BID ISIAH Administration Fentanyl 50 mcg 09/13/20 12:12 Fentanyl 100 Mcg/2 Ml Inj IV Q10MIN PRN ANALGESIA Guaifenesin 10 ml 09/09/20 16:01 09/10/20 05:14 Guaifenesin Dm 200/20 Mg Oral Liqd 10 Ml PO 10 ml Q4H PRN Administration Cough Heparin Sodium (Porcine) 5,000 unit 09/15/20 13:05 Heparin 10,000 Units/10 Ml Vial IV Q6H PRN Anti-Xa Assay < 0.1 units/ml Hydralazine HCl 10 mg 09/11/20 21:33 Hydralazine 20 Mg/1 Ml Inj IV Q4H PRN Hypertension Fentanyl Citrate 2,000 mcg in 100 mls @ 7.45 mls/hr 09/10/20 23:00 09/17/20 11:43 Fentanyl Drip Premix IV 4 mcg/kg/hr TITR ISIAH 29.8 mls/hr Administration Protocol 1 MCG/KG/HR Norepinephrine 4 mg in 250 mls @ 7.5 mls/hr 09/11/20 17:00 09/17/20 11:43 Levophed Drip 4 Mg/Ns 250 Ml IV 12 mcg/min TITR ISIAH 45 mls/hr Administration Protocol 2 MCG/MIN Vasopressin 20 unit/ Sodium 101 mls @ 9.09 mls/hr 09/11/20 22:00 09/16/20 09:34 Chloride IV 0.03 units/min TITR ISIAH 9.09 mls/hr Administration Protocol 0.03 UNITS/MIN Midazolam HCl 100 mg/ Sodium 100 mls @ 1 mls/hr 09/12/20 17:30 09/17/20 09:18 Chloride IV 5 mg/hr TITR ISIAH 5 mls/hr Administration Protocol 1 MG/HR Propofol 1,000 mg in 100 mls @ 4.47 mls/hr 09/13/20 13:00 09/16/20 13:26 Diprivan 10 Mg/Ml IV 5 mcg/kg/min TITR ISIAH 4.47 mls/hr Administration Protocol 5 MCG/KG/MIN Sodium Chloride 1,000 mls @ 110 mls/hr 09/15/20 05:30 Nacl 0.9% 1000 Ml IV DIRECT ISIAH Heparin Sodium/Sodium Chloride 25,000 unit in 500 mls @ 30 mls/hr 09/15/20 14:00 09/17/20 09:18 Heparin/ 0.45% Nacl-25,000 Unit/500 Ml IV 900 units/hr TITR ISIAH 18 mls/hr Administration Protocol 1,500 UNITS/HR Dopamine HCl/Dextrose 800 mg in 250 mls @ 5.588 mls/hr 09/15/20 21:04 Intropin Drip 800 Mg/D5w 250 Ml IV TITR ISIAH Protocol 2 MCG/KG/MIN Sodium Chloride 100 mls @ 999 mls/hr 09/16/20 10:30 Nacl 0.9% IV NABEEL PRN Hypotension Insulin Glargine 20 units 09/16/20 11:00 09/17/20 08:59 Insulin Glargine 100 Units/Ml SUB-Q 20 units QAMDIAB ISIAH Administration Insulin Human Lispro 0 unit 09/11/20 12:00 09/17/20 12:47 Insulin Lispro 100 Unit/Ml SUB-Q 4 unit Q6HR ISIAH Administration Protocol Midazolam HCl 2 mg 09/12/20 17:30 09/13/20 12:05 Midazolam 2 Mg/2 Ml Inj IV 2 mg Q10MIN PRN Administration Sedation Simple Syrup 15 ml 09/11/20 11:45 Simple Syrup 15 Ml FEEDTUBE PRN PRN Hypoglycemia Simple Syrup 30 ml 09/11/20 11:45 Simple Syrup 15 Ml FEEDTUBE PRN PRN Hypoglycemia Sodium Bicarbonate 325 mg 09/11/20 11:45 Sodium Bicarbonate 325 Mg Tab FEEDTUBE PRN PRN For Clogged Feeding Tube Sodium Bicarbonate 50 meq 09/16/20 15:00 09/16/20 15:11 Sodium Bicarb 8.4% 50 Meq/50 Ml Syringe IV 09/17/20 15:01 50 meq ONCE ISIAH Administration Sodium Chloride 10 ml 09/08/20 22:00 09/17/20 09:02 Sodium Chloride 0.9% 10 Ml Flush Syringe IV 10 ml BID ISIAH Administration Sodium Chloride 10 ml 09/08/20 20:23 Sodium Chloride 0.9% 10 Ml Flush Syringe IV PRN PRN LINE FLUSH Zinc Sulfate 220 mg 09/08/20 22:00 09/17/20 09:01 Zinc Sulfate 220 Mg Cap PO 220 mg BID ISIAH Administration Nutrition/Malnutrition Assess - Dietary Evaluation Nutrition/Malnutrition Findings: Nutrition Notes Start: 09/11/20 11:37 Freq: Status: Active Protocol: Document 09/15/20 09:31 (Rec: 09/15/20 09:38 [email or web address]) Nutrition Notes Initial or Follow up Reassessment Current Diagnosis Acute Kidney Injury, Respiratory Failure Other Pertinent Diagnosis pneu, COVID Current Diet Glucerna 1.2 at 65 ml/hr Labs/Tests K 5.5 BUN 87 Cr 4.3 Phos 6.7 Pertinent Medications Propofol Levophed Height 5 ft 8 in Weight 149 kg [place] Body Weight (kg) 63.63 BMI 49.9 Weight Status Morbidly Obese Subjective/Other Information Will adjust TF for renal labs and 16 hour prone. TF running at 10 ml/hr. Percent of energy/protein needs met: 15%/9% Burn Absent Trauma Absent Current % PO Negligible Minimum of two criteria No physical signs of malnutrition #1 Nutrition Diagnosis Inadequate oral intake Diagnosis Progress(for reassessment Continues documentation) Is patient on ventilator? Yes Is Patient Ambulatory and/or Out of Bed No REE-([facility]-confined to bed) 2457.420 Kcal/Kg value to use for calculation 12 Approximate Energy Requirements Using 1788 kcal/Kg Calculation Used for Recommendations Kcal/kg Additional Notes Protein: up to 2.5g/kg IBW (up to 159g) Fluid: 1 ml/kcal or per MD Nutrition Intervention Change Diet Order: Change TF Nutrition Support: 16 Hr Prone: For 16h proned - Nepro 1.8 at 20 ml/hr Flush 50 ml q4h For 8 h supine - Nepro 1.8 at 80 ml/hr (or as tolerated). Flush 250 q4h When finished proning: Nepro 1 .8 at 40 ml/hr Flush 175 ml q4h or per MD Kcal 1,728 Protein (gm) 78 Fluid (mL) 698 Goal #1 Meet at least 75% of protein and energy needs via TF Anticipated Discharge Needs: Unable to determine at this time Follow-Up By: 09/18/20 Additional Comments FU for TF tolerance and proning
--- NOTE | 2020-09-17 13:45 | Progress Note ---
Assessment and Plan Cultures: SARS CoV2 PCR: Positive 09/08/2020 blood culture: No growth 09/08/2020 urine culture: Usual skin stefania A/P: 75-year-old female with hypertension, diabetes, obesity hypoventilation syndrome was admitted to the hospital with cough, shortness of breath, not feeling well: #Shock, likely septic: no clear evidence of bacterial infection. Completed empiric CAP coverage. Probably related to severe/critical COVID. Rise in procal now probably from renal failure. #Bilateral COVID-19 pneumonia: critical disease. Remdesivir was discontinued due to worsening renal failure. #Acute hypoxic respiratory failure: On the vent with very high requirements. #Morbid obesity #Hypertension, diabetes #Leukopenia, mild thrombocytopenia, transaminitis: Likely related to COVID-19 #NICOLASA: worse, now requiring dialysis. Recs: -Patient now with increasing pressor requirements, will reculture, add broad- spectrum antibiotics: Cefepime, Vancomycin, fluconazole, renally dosed -continue steroids, higher dose due to morbid obesity -IV Tocilizumab administered 09/12/2020 (remdesivir course was not completed due to worsening renal failure) -significantly high d-dimer, agree with anticoagulation -very poor prognosis Rory Ahuja MD, FACP [facility] ([facility]) O: [phone] F: [phone] Subjective Date of service: 09/17/20 Principal diagnosis: Ac hypoxemic resp failure; ARDS; COVID-19 infxn; PNA; DM II; Obesity Interval history: Low-grade fever. Remains on the vent with very high settings. On steroids, on pressors: Levophed and vasopressin. Objective - Exam Narrative Exam: Physical Exam (reviewed in chart to minimize risk of transmission) Constitutional: deferred Head, Ears, Nose: deferred Eyes: deferred Neck: deferred Oral: deferred Cardiovascular: deferred Respiratory: deferred GI: deferred Musculoskeletal: deferred Skin: deferred Hem/Lymphatic: deferred Psych: deferred Neurological: deferred - Constitutional Vitals: Vital Signs Temp Pulse Resp BP Pulse Ox 100.4 F H 91 H 30 H 108/42 90 09/17/20 03:52 09/17/20 12:18 09/17/20 12:00 09/17/20 12:18 09/17/20 12:18 Temperature -Last 24 Hours Temperature 100.4 F Temperature 98.4 F Temperature 98.2 F Temperature 98.6 F Temperature 98.7 F - Labs CBC & Chem 7: 09/17/20 04:52 09/17/20 04:52 Labs: Abnormal lab results 09/16/20 09/16/20 09/16/20 Range/Units 13:45 17:21 23:37 WBC (4.5-11.0) K/mm3 RDW (13.2-15.2) % Plt Count (140-440) K/mm3 D-Dimer (0-234) ng/mlDDU ABG pH 7.156 L (7.320-7.450) POC ABG pCO2 59.8 H (32.0-48.0) mmHg POC ABG pO2 48.2 L (83-108) mmHg ABG Oxyhemoglobin 78.1 L (94-98) ABG Potassium 5.2 H (3.40-4.50) mmol/L ABG Glucose 302 H (65-95) mg/dL Potassium (3.6-5.0) mmol/L BUN (7-17) mg/dL Creatinine (0.6-1.2) mg/dL Glucose (65-100) mg/dL POC Glucose 285 H 385 H (70-105) mg/dL Calcium (8.4-10.2) mg/dL Phosphorus (2.5-4.5) mg/dL Ferritin (10.0-200.0) ng/mL Lactate Dehydrogenase (91-180) units/L C-Reactive Protein (0.00-1.30) mg/dL Arterial Blood Glucose 302 H (65-95) mg/dL Arterial Blood Ionized Calcium 4.4 L (4.6-5.3) mg/dL 09/17/20 09/17/20 09/17/20 Range/Units 04:52 04:52 04:52 WBC 19.4 H (4.5-11.0) K/mm3 RDW 15.5 H (13.2-15.2) % Plt Count 91 L (140-440) K/mm3 D-Dimer > 23373 H (0-234) ng/mlDDU ABG pH (7.320-7.450) POC ABG pCO2 (32.0-48.0) mmHg POC ABG pO2 (83-108) mmHg ABG Oxyhemoglobin (94-98) ABG Potassium (3.40-4.50) mmol/L ABG Glucose (65-95) mg/dL Potassium 5.1 H (3.6-5.0) mmol/L BUN 68 H (7-17) mg/dL Creatinine 4.1 H (0.6-1.2) mg/dL Glucose 291 H (65-100) mg/dL POC Glucose (70-105) mg/dL Calcium 8.3 L (8.4-10.2) mg/dL Phosphorus 5.60 H (2.5-4.5) mg/dL Ferritin (10.0-200.0) ng/mL Lactate Dehydrogenase 729 H (91-180) units/L C-Reactive Protein 5.30 H (0.00-1.30) mg/dL Arterial Blood Glucose (65-95) mg/dL Arterial Blood Ionized Calcium (4.6-5.3) mg/dL 09/17/20 09/17/20 09/17/20 Range/Units 04:52 05:20 12:02 WBC (4.5-11.0) K/mm3 RDW (13.2-15.2) % Plt Count (140-440) K/mm3 D-Dimer (0-234) ng/mlDDU ABG pH (7.320-7.450) POC ABG pCO2 (32.0-48.0) mmHg POC ABG pO2 (83-108) mmHg ABG Oxyhemoglobin (94-98) ABG Potassium (3.40-4.50) mmol/L ABG Glucose (65-95) mg/dL Potassium (3.6-5.0) mmol/L BUN (7-17) mg/dL Creatinine (0.6-1.2) mg/dL Glucose (65-100) mg/dL POC Glucose 312 H 240 H (70-105) mg/dL Calcium (8.4-10.2) mg/dL Phosphorus (2.5-4.5) mg/dL Ferritin 1323.0 H (10.0-200.0) ng/mL Lactate Dehydrogenase (91-180) units/L C-Reactive Protein (0.00-1.30) mg/dL Arterial Blood Glucose (65-95) mg/dL Arterial Blood Ionized Calcium (4.6-5.3) mg/dL
--- NOTE | 2020-09-17 13:54 | Progress Note ---
Assessment and Plan Impression * Oliguric acute kidney injury secondary to ATN * Acute hypoxic/hypercapnic respirtaory failure secondary to COVID 19 PNA * COVID 19 PNA * Sepsis * Hyperkalemia * Azotemia * Respiratory acidosis * Type II DM Plan: * Patient is s/p HD on Friday and Friday (1 liter removed each treatment) * HD today to attempt fluid removal would like to keep I/O close to matched - patient requiring significant vent support - FiO2 100, PEEP 20 * Will plan for HD again tomorrow * UF as tolerated * Dose medications for renal function * Vent management per CCM * ID following * Pressors prn to maintain MAP >65 * AM labs Subjective Date of service: 09/17/20 Principal diagnosis: Ac hypoxemic resp failure; ARDS; COVID-19 infxn; PNA; DM II; Obesity Interval history: Intermittent proning. Remains ventilated - FiO2 100%, PEEP 20, TV 450, Rate 30 Objective - Vital Signs Vital signs: Vital Signs - 12hr 09/17/20 09/17/20 09/17/20 01:56 02:00 02:06 Temperature Pulse Rate 72 72 Pulse Rate [ Anterior Bilateral Throughout] Respiratory 18 26 H Rate Respiratory Rate [Anterior Bilateral Throughout] Blood Pressure 132/42 132/42 132/42 O2 Sat by Pulse 95 90 Oximetry 09/17/20 09/17/20 09/17/20 02:10 02:16 02:20 Temperature Pulse Rate 92 H 75 Pulse Rate [ Anterior Bilateral Throughout] Respiratory 30 H 30 H Rate Respiratory Rate [Anterior Bilateral Throughout] Blood Pressure 132/42 132/42 132/42 O2 Sat by Pulse 92 94 93 Oximetry 09/17/20 09/17/20 09/17/20 02:26 02:30 02:36 Temperature Pulse Rate 78 82 86 Pulse Rate [ Anterior Bilateral Throughout] Respiratory 30 H 30 H 30 H Rate Respiratory Rate [Anterior Bilateral Throughout] Blood Pressure 132/42 132/42 132/42 O2 Sat by Pulse 89 88 88 Oximetry 09/17/20 09/17/20 09/17/20 02:40 03:00 03:52 Temperature 100.4 F H Pulse Rate 85 83 Pulse Rate [ Anterior Bilateral Throughout] Respiratory 30 H 30 H Rate Respiratory Rate [Anterior Bilateral Throughout] Blood Pressure 132/42 132/42 O2 Sat by Pulse 88 89 Oximetry 09/17/20 09/17/20 09/17/20 04:00 05:00 05:06 Temperature Pulse Rate 83 84 87 Pulse Rate [ Anterior Bilateral Throughout] Respiratory 30 H 30 H Rate Respiratory Rate [Anterior Bilateral Throughout] Blood Pressure 132/42 132/42 121/55 O2 Sat by Pulse 92 90 90 Oximetry 09/17/20 09/17/20 09/17/20 06:00 07:00 08:00 Temperature Pulse Rate 82 80 82 Pulse Rate [ Anterior Bilateral Throughout] Respiratory 30 H 30 H 30 H Rate Respiratory Rate [Anterior Bilateral Throughout] Blood Pressure 132/42 132/42 132/42 O2 Sat by Pulse 92 92 91 Oximetry 09/17/20 09/17/20 09/17/20 08:54 09:00 09:46 Temperature Pulse Rate 90 89 Pulse Rate [ 90 Anterior Bilateral Throughout] Respiratory 30 H Rate Respiratory 30 H Rate [Anterior Bilateral Throughout] Blood Pressure 100/39 132/42 O2 Sat by Pulse 89 88 Oximetry 09/17/20 09/17/20 09/17/20 10:00 11:00 12:00 Temperature Pulse Rate 85 94 H 86 Pulse Rate [ Anterior Bilateral Throughout] Respiratory 28 H 30 H 30 H Rate Respiratory Rate [Anterior Bilateral Throughout] Blood Pressure 132/42 132/42 132/42 O2 Sat by Pulse 89 88 90 Oximetry 09/17/20 12:18 Temperature Pulse Rate 91 H Pulse Rate [ Anterior Bilateral Throughout] Respiratory Rate Respiratory Rate [Anterior Bilateral Throughout] Blood Pressure 108/42 O2 Sat by Pulse 90 Oximetry - General Appearance General appearance: well-developed, well-nourished, intubated EENT: ATNC, other (ETT in place) Respiratory: Present: Other (coarse BS) Cardiology: regular, S1S2 Gastrointestinal: normal Integumentary: no rash, warm and dry Neurologic: other (sedated) - Lab 09/17/20 04:52 09/17/20 04:52 Most recent lab results ABG pH 7.156 (7.320-7.450) L 09/16/20 13:45 ABG O2 Saturation 79.1 (0-100) 09/16/20 13:45 Calcium 8.3 mg/dL (8.4-10.2) L 09/17/20 04:52 Phosphorus 5.60 mg/dL (2.5-4.5) H 09/17/20 04:52 Magnesium 2.30 mg/dL (1.7-2.3) 09/17/20 04:52 Urine Creatinine 43.2 mg/dL (0.1-20.0) H 09/12/20 13:30 Urine Sodium 58 mmol/L 09/12/20 13:30 Medications & Allergies - Medications Allergies/Adverse Reactions: Allergies lisinopril Allergy (Severe, Verified 09/08/20 16:33) Angioedema Home Medications: Home Medications Medication Instructions Recorded Confirmed Last Taken Type Losartan 100 mg PO DAILY 09/09/20 09/09/20 09/08/20 08:00 History Metformin HCl 500 mg PO BID 09/09/20 09/09/20 09/08/20 History 500 carvediloL 3.125 mg PO BID 09/09/20 09/09/20 09/08/20 History glipiZIDE 10 mg PO AC 09/09/20 09/09/20 09/08/20 08:00 History Active Medications: Generic Name Dose Route Start Last Admin Trade Name Freq PRN Reason Stop Dose Admin Acetaminophen 650 mg 09/08/20 20:23 Acetaminophen 325 Mg Tab PO Q4H PRN Pain MILD(1-3)/Fever >100.5/CORTEZ Albuterol 2.5 mg 09/08/20 20:23 Albuterol 2.5 Mg/3 Ml Nebu IH Q4HRT PRN Shortness Of Breath Albuterol/Ipratropium 1 ampul 09/13/20 12:30 09/17/20 09:01 Ipratropium/Albuterol Sulfate 3 Ml Ampul.Neb IH 1 ampul BID ISIAH Administration Lipase/Protease/Amylase 1 each 09/11/20 11:45 Lipase 10,500/Protease 25,000/Amylase 43,750 (Units) Dr Luis Manuel HURTADOTUBE PRN PRN For Clogged Feeding Tube Ascorbic Acid 500 mg 09/08/20 22:00 09/17/20 09:01 Ascorbic Acid 500 Mg Tab PO 500 mg BID ISIAH Administration Cholecalciferol 1,000 unit 09/09/20 10:00 09/17/20 09:01 Cholecalciferol (Vit D3) 1000 Unit (25 Mcg) Tab PO 1,000 unit QDAY ISIAH Administration Dexamethasone 8 mg 09/10/20 17:00 09/17/20 09:01 Dexamethasone 4 Mg/Ml Vial IV 09/19/20 10:01 8 mg DAILY ISIAH Administration Famotidine 10 mg 09/14/20 22:00 09/17/20 09:01 Famotidine 20 Mg/2 Ml Inj IV 10 mg BID ISIAH Administration Fentanyl 50 mcg 09/13/20 12:12 Fentanyl 100 Mcg/2 Ml Inj IV Q10MIN PRN ANALGESIA Guaifenesin 10 ml 09/09/20 16:01 09/10/20 05:14 Guaifenesin Dm 200/20 Mg Oral Liqd 10 Ml PO 10 ml Q4H PRN Administration Cough Heparin Sodium (Porcine) 5,000 unit 09/15/20 13:05 Heparin 10,000 Units/10 Ml Vial IV Q6H PRN Anti-Xa Assay < 0.1 units/ml Hydralazine HCl 10 mg 09/11/20 21:33 Hydralazine 20 Mg/1 Ml Inj IV Q4H PRN Hypertension Fentanyl Citrate 2,000 mcg in 100 mls @ 7.45 mls/hr 09/10/20 23:00 09/17/20 11:43 Fentanyl Drip Premix IV 4 mcg/kg/hr TITR ISIAH 29.8 mls/hr Administration Protocol 1 MCG/KG/HR Norepinephrine 4 mg in 250 mls @ 7.5 mls/hr 09/11/20 17:00 09/17/20 11:43 Levophed Drip 4 Mg/Ns 250 Ml IV 12 mcg/min TITR ISIAH 45 mls/hr Administration Protocol 2 MCG/MIN Vasopressin 20 unit/ Sodium 101 mls @ 9.09 mls/hr 09/11/20 22:00 09/16/20 09:34 Chloride IV 0.03 units/min TITR ISIAH 9.09 mls/hr Administration Protocol 0.03 UNITS/MIN Midazolam HCl 100 mg/ Sodium 100 mls @ 1 mls/hr 09/12/20 17:30 09/17/20 09:18 Chloride IV 5 mg/hr TITR ISIAH 5 mls/hr Administration Protocol 1 MG/HR Propofol 1,000 mg in 100 mls @ 4.47 mls/hr 09/13/20 13:00 09/16/20 13:26 Diprivan 10 Mg/Ml IV 5 mcg/kg/min TITR ISIAH 4.47 mls/hr Administration Protocol 5 MCG/KG/MIN Sodium Chloride 1,000 mls @ 110 mls/hr 09/15/20 05:30 Nacl 0.9% 1000 Ml IV DIRECT ISIAH Heparin Sodium/Sodium Chloride 25,000 unit in 500 mls @ 30 mls/hr 09/15/20 14:00 09/17/20 09:18 Heparin/ 0.45% Nacl-25,000 Unit/500 Ml IV 900 units/hr TITR ISIAH 18 mls/hr Administration Protocol 1,500 UNITS/HR Dopamine HCl/Dextrose 800 mg in 250 mls @ 5.588 mls/hr 09/15/20 21:04 Intropin Drip 800 Mg/D5w 250 Ml IV TITR ISIAH Protocol 2 MCG/KG/MIN Sodium Chloride 100 mls @ 999 mls/hr 09/16/20 10:30 Nacl 0.9% IV NABEEL PRN Hypotension Cefepime HCl 1 gm in 100 mls @ 200 mls/hr 09/17/20 18:00 Cefepime/Ns 1 Gm/100 Ml IV QPM ISIAH Protocol Vancomycin HCl 1,750 mg/ 535 mls @ 333 mls/hr 09/17/20 13:43 Sodium Chloride IV 09/17/20 15:13 ONCE ONE Protocol Insulin Glargine 20 units 09/16/20 11:00 09/17/20 08:59 Insulin Glargine 100 Units/Ml SUB-Q 20 units QAMDIAB [facility] Administration Insulin Human Lispro 0 unit 09/11/20 12:00 09/17/20 12:47 Insulin Lispro 100 Unit/Ml SUB-Q 4 unit Q6HR ISIAH Administration Protocol Midazolam HCl 2 mg 09/12/20 17:30 09/13/20 12:05 Midazolam 2 Mg/2 Ml Inj IV 2 mg Q10MIN PRN Administration Sedation Simple Syrup 15 ml 09/11/20 11:45 Simple Syrup 15 Ml FEEDTUBE PRN PRN Hypoglycemia Simple Syrup 30 ml 09/11/20 11:45 Simple Syrup 15 Ml FEEDTUBE PRN PRN Hypoglycemia Sodium Bicarbonate 325 mg 09/11/20 11:45 Sodium Bicarbonate 325 Mg Tab FEEDTUBE PRN PRN For Clogged Feeding Tube Sodium Bicarbonate 50 meq 09/16/20 15:00 09/16/20 15:11 Sodium Bicarb 8.4% 50 Meq/50 Ml Syringe IV 09/17/20 15:01 50 meq ONCE ISIAH Administration Sodium Chloride 10 ml 09/08/20 22:00 09/17/20 09:02 Sodium Chloride 0.9% 10 Ml Flush Syringe IV 10 ml BID ISIAH Administration Sodium Chloride 10 ml 09/08/20 20:23 Sodium Chloride 0.9% 10 Ml Flush Syringe IV PRN PRN LINE FLUSH Zinc Sulfate 220 mg 09/08/20 22:00 09/17/20 09:01 Zinc Sulfate 220 Mg Cap PO 220 mg BID ISIAH Administration
[2020-09-17] MEDS ORDERED: VANCOMYCIN PHARMACY TO DOSE IV SCH (14:00)
[2020-09-17] MEDS ORDERED: SODIUM CHLORIDE 0.9% 100 ML IV PRN ×2 (14:30→15:04)
[2020-09-17] MEDS ORDERED: VANCOMYCIN 1,750 MG in SODIUM CHLORIDE 0.9% 500 ML 500 ML IV ONE ×2 (15:00→21:00)
[2020-09-17] MEDS ORDERED: CEFEPIME/NS 1 GM/100 ML 1 GM/100 ML BAG IV SCH (18:00)
[2020-09-18] MEDS: INSULIN LISPRO 100 UNIT/ML SUB-Q SCH ×5 (01:04→23:59)
[2020-09-18] MEDS: NORepinephrine/NS 4 MG-250 ML 4 MG/250 ML BAG IV SCH ×3 (01:05→21:15)
[2020-09-18] MEDS: VASOPRESSIN 20 UNIT in SODIUM CHLORIDE 0.9% 100 ML IV SCH ×3 (01:10→23:44)
[2020-09-18] MEDS: fentaNYL DRIP Premix 2,000 MCG/100 ML BAG IV SCH ×7 (01:11→23:00)
[2020-09-18] MEDS: IPRATROPIUM/ALBUTEROL SULFATE 3 ML AMPUL.NEB IH SCH ×3 (06:13→21:59)
[2020-09-18 06:52] LABS: Calcium 7.5 mg/dL (8.4-10.2)
[2020-09-18] MEDS: MIDAZOLAM 100 MG in SODIUM CHLORIDE 0.9% 80 ML IV SCH (07:43)
[2020-09-18] MEDS: INSULIN GLARGINE 100 UNITS/ML SUB-Q SCH (08:31)
[2020-09-18 09:12] LABS: Hematocrit 33.6 % (30.3-42.9); Hemoglobin 10.8 gm/dl (10.1-14.3); Mean Corpuscular HGB Conc 32 % (30-34); Mean Corpuscular Volume 96 fl (79-97); Red Blood Count 3.51 M/mm3 (3.65-5.03); Red Cell Distribution Width 15.3 % (13.2-15.2)
[2020-09-18 09:23] LABS: Platelet Count 31 K/mm3 (140-440)
[2020-09-18] MEDS: FAMOTIDINE 20 MG/2 ML INJ IV SCH ×2 (09:44→22:02)
[2020-09-18] MEDS: ASCORBIC ACID 500 MG TAB PO SCH ×2 (09:44→22:02)
[2020-09-18] MEDS: dexAMETHasone 4 MG/ML VIAL IV SCH (09:44)
[2020-09-18] MEDS: CHOLECALCIFEROL (VIT D3) 1000 UNIT (25 mcg) TAB PO SCH (09:44)
[2020-09-18] MEDS: ZINC SULFATE 220 MG CAP PO SCH ×2 (09:44→22:02)
--- NOTE | 2020-09-18 09:53 | Progress Note ---
Assessment and Plan Impression * Oliguric acute kidney injury secondary to ATN * Acute hypoxic/hypercapnic respirtaory failure secondary to COVID 19 PNA * COVID 19 PNA * Sepsis * Hyperkalemia * Azotemia * Respiratory acidosis * Type II DM Plan: * Patient is s/p HD on Friday, Friday, Friday (1 liter removed each treatment) as patient continuing to require significant vent support * HD today with additional volume, aim to maintain volume balance as able * UF as tolerated * Dose medications for renal function * Vent management per CCM * ID following * Pressors prn to maintain MAP >65 * AM labs Subjective Date of service: 09/18/20 Principal diagnosis: Ac hypoxemic resp failure; ARDS; COVID-19 infxn; PNA; DM II; Obesity Interval history: Intermittent proning noted, in prone positioning this AM. Remains ventilated - FiO2 100%, PEEP 20, TV 450, Rate 30. On Vasopressin Objective - Exam Narrative Exam: General appearance: ill appearing, intubated, prone positioning EENT: ATNC, other (ETT in place) Respiratory: Present: Other (coarse BS) Cardiology: regular, S1S2 Gastrointestinal: normal Integumentary: no rash, warm and dry Neurologic: other (sedated) - Vital Signs Vital signs: Vital Signs - 12hr 09/17/20 09/17/20 09/17/20 22:00 22:16 22:30 Temperature Pulse Rate 98 H 89 83 Respiratory 29 H 30 H 30 H Rate Blood Pressure 132/42 O2 Sat by Pulse 96 95 95 Oximetry 09/17/20 09/17/20 09/17/20 22:46 23:00 23:16 Temperature Pulse Rate 85 79 78 Respiratory 30 H 30 H 30 H Rate Blood Pressure 132/42 132/42 132/42 O2 Sat by Pulse 96 97 98 Oximetry 09/17/20 09/17/20 09/17/20 23:30 23:34 23:46 Temperature Pulse Rate 77 75 77 Respiratory 30 H 30 H 30 H Rate Blood Pressure 132/42 132/42 O2 Sat by Pulse 97 97 96 Oximetry 09/17/20 09/18/20 09/18/20 23:50 00:00 00:16 Temperature 100.5 F H Pulse Rate 73 74 73 Respiratory 30 H 30 H 30 H Rate Blood Pressure 144/59 O2 Sat by Pulse 97 97 95 Oximetry 0809/18/20 09/18/20 00:30 00:46 01:00 Temperature Pulse Rate 73 80 85 Respiratory 30 H 30 H 30 H Rate Blood Pressure O2 Sat by Pulse 95 93 96 Oximetry 09/18/20 09/18/20 09/18/20 01:16 01:30 01:46 Temperature Pulse Rate 73 71 70 Respiratory 30 H 30 H 30 H Rate Blood Pressure O2 Sat by Pulse 97 97 97 Oximetry 09/18/20 09/18/20 09/18/20 02:00 02:16 02:30 Temperature Pulse Rate 69 69 67 Respiratory 30 H 30 H 30 H Rate Blood Pressure O2 Sat by Pulse 97 97 97 Oximetry 09/18/20 09/18/20 09/18/20 02:46 03:00 03:16 Temperature Pulse Rate 69 69 67 Respiratory 30 H 30 H 30 H Rate Blood Pressure O2 Sat by Pulse 97 97 95 Oximetry 09/18/20 09/18/20 09/18/20 03:30 03:46 04:00 Temperature 101.3 F H Pulse Rate 67 86 67 Respiratory 30 H 22 29 H Rate Blood Pressure 151/59 O2 Sat by Pulse 83 L 86 100 Oximetry 09/18/20 09/18/20 09/18/20 04:15 04:30 04:46 Temperature Pulse Rate 88 78 74 Respiratory 29 H 30 H 30 H Rate Blood Pressure 140/57 140/57 140/57 O2 Sat by Pulse 98 99 100 Oximetry 09/18/20 09/18/20 09/18/20 05:00 05:16 05:30 Temperature Pulse Rate 71 87 66 Respiratory 30 H 30 H 29 H Rate Blood Pressure 154/58 O2 Sat by Pulse 100 100 100 Oximetry 09/18/20 09/18/20 09/18/20 05:45 06:00 06:15 Temperature Pulse Rate 64 68 69 Respiratory 30 H 30 H 30 H Rate Blood Pressure 165/61 142/58 147/61 O2 Sat by Pulse 96 96 96 Oximetry 09/18/20 09/18/20 09/18/20 06:30 06:45 07:00 Temperature 99.0 F Pulse Rate 67 69 66 Respiratory 30 H 30 H 30 H Rate Blood Pressure 149/62 151/59 159/61 O2 Sat by Pulse 96 95 95 Oximetry 09/18/20 09/18/20 09/18/20 07:15 07:30 07:45 Temperature Pulse Rate 64 71 70 Respiratory 30 H 30 H 30 H Rate Blood Pressure 153/62 151/59 149/53 O2 Sat by Pulse 96 95 96 Oximetry 09/18/20 09/18/20 08:00 08:15 Temperature Pulse Rate 69 66 Respiratory 30 H 30 H Rate Blood Pressure 131/57 128/56 O2 Sat by Pulse 96 96 Oximetry - Lab 09/18/20 05:15 09/18/20 05:15 Most recent lab results ABG pH 7.156 (7.320-7.450) L 09/16/20 13:45 ABG O2 Saturation 79.1 (0-100) 09/16/20 13:45 Calcium 7.5 mg/dL (8.4-10.2) L 09/18/20 05:15 Phosphorus 5.20 mg/dL (2.5-4.5) H 09/18/20 05:15 Magnesium 2.00 mg/dL (1.7-2.3) 09/18/20 05:15 Urine Creatinine 43.2 mg/dL (0.1-20.0) H 09/12/20 13:30 Urine Sodium 58 mmol/L 09/12/20 13:30 Medications & Allergies - Medications Allergies/Adverse Reactions: Allergies lisinopril Allergy (Severe, Verified 09/08/20 16:33) Angioedema Home Medications: Home Medications Medication Instructions Recorded Confirmed Last Taken Type Losartan 100 mg PO DAILY 09/09/20 09/09/20 09/08/20 08:00 History Metformin HCl 500 mg PO BID 09/09/20 09/09/20 09/08/20 History 500 carvediloL 3.125 mg PO BID 09/09/20 09/09/20 09/08/20 History glipiZIDE 10 mg PO AC 09/09/20 09/09/20 09/08/20 08:00 History Active Medications: Generic Name Dose Route Start Last Admin Trade Name Freq PRN Reason Stop Dose Admin Acetaminophen 650 mg 09/08/20 20:23 Acetaminophen 325 Mg Tab PO Q4H PRN Pain MILD(1-3)/Fever >100.5/CORTEZ Albuterol 2.5 mg 09/08/20 20:23 Albuterol 2.5 Mg/3 Ml Nebu IH Q4HRT PRN Shortness Of Breath Albuterol/Ipratropium 1 ampul 09/13/20 12:30 09/18/20 06:13 Ipratropium/Albuterol Sulfate 3 Ml Ampul.Neb IH Not Given BID ISIAH Lipase/Protease/Amylase 1 each 09/11/20 11:45 Lipase 10,500/Protease 25,000/Amylase 43,750 (Units) Dr Cap FEEDTUBE PRN PRN For Clogged Feeding Tube Ascorbic Acid 500 mg 09/08/20 22:00 09/18/20 09:44 Ascorbic Acid 500 Mg Tab PO 500 mg BID ISIAH Administration Cholecalciferol 1,000 unit 09/09/20 10:00 09/18/20 09:44 Cholecalciferol (Vit D3) 1000 Unit (25 Mcg) Tab PO 1,000 unit QDAY ISIAH Administration Dexamethasone 8 mg 09/10/20 17:00 09/18/20 09:44 Dexamethasone 4 Mg/Ml Vial IV 09/19/20 10:01 8 mg DAILY ISIAH Administration Famotidine 10 mg 09/14/20 22:00 09/18/20 09:44 Famotidine 20 Mg/2 Ml Inj IV 10 mg BID ISIAH Administration Fentanyl 50 mcg 09/13/20 12:12 Fentanyl 100 Mcg/2 Ml Inj IV Q10MIN PRN ANALGESIA Guaifenesin 10 ml 09/09/20 16:01 09/10/20 05:14 Guaifenesin Dm 200/20 Mg Oral Liqd 10 Ml PO 10 ml Q4H PRN Administration Cough Heparin Sodium (Porcine) 5,000 unit 09/15/20 13:05 Heparin 10,000 Units/10 Ml Vial IV Q6H PRN Anti-Xa Assay < 0.1 units/ml Hydralazine HCl 10 mg 09/11/20 21:33 Hydralazine 20 Mg/1 Ml Inj IV Q4H PRN Hypertension Fentanyl Citrate 2,000 mcg in 100 mls @ 7.45 mls/hr 09/10/20 23:00 09/18/20 09:44 Fentanyl Drip Premix IV 4 mcg/kg/hr TITR ISIAH 29.8 mls/hr Administration Protocol 1 MCG/KG/HR Norepinephrine 4 mg in 250 mls @ 7.5 mls/hr 09/11/20 17:00 09/18/20 08:17 Levophed Drip 4 Mg/Ns 250 Ml IV 6 mcg/min TITR ISIAH 22.5 mls/hr Titration Protocol 2 MCG/MIN Vasopressin 20 unit/ Sodium 101 mls @ 9.09 mls/hr 09/11/20 22:00 09/18/20 01:10 Chloride IV 0.03 units/min TITR ISIAH 9.09 mls/hr Administration Protocol 0.03 UNITS/MIN Midazolam HCl 100 mg/ Sodium 100 mls @ 1 mls/hr 09/12/20 17:30 09/18/20 07:43 Chloride IV 5 mg/hr TITR ISIAH 5 mls/hr Administration Protocol 1 MG/HR Propofol 1,000 mg in 100 mls @ 4.47 mls/hr 09/13/20 13:00 09/18/20 04:59 Diprivan 10 Mg/Ml IV 5 mcg/kg/min TITR ISIAH 4.47 mls/hr Administration Protocol 5 MCG/KG/MIN Sodium Chloride 1,000 mls @ 110 mls/hr 09/15/20 05:30 Nacl 0.9% 1000 Ml IV DIRECT ISIAH Heparin Sodium/Sodium Chloride 25,000 unit in 500 mls @ 30 mls/hr 09/15/20 14:00 09/17/20 09:18 Heparin/ 0.45% Nacl-25,000 Unit/500 Ml IV 900 units/hr TITR ISIAH 18 mls/hr Administration Protocol 1,500 UNITS/HR Dopamine HCl/Dextrose 800 mg in 250 mls @ 5.588 mls/hr 09/15/20 21:04 Intropin Drip 800 Mg/D5w 250 Ml IV TITR ISIAH Protocol 2 MCG/KG/MIN Sodium Chloride 100 mls @ 999 mls/hr 09/16/20 10:30 Nacl 0.9% IV NBAEEL PRN Hypotension Sodium Chloride 100 mls @ 999 mls/hr 09/17/20 14:30 Nacl 0.9% IV NABEEL PRN Hypotension Sodium Chloride 100 mls @ 999 mls/hr 09/17/20 15:04 Nacl 0.9% IV NABEEL PRN Hypotension Cefepime HCl 1 gm in 100 mls @ 200 mls/hr 09/18/20 20:00 Cefepime/Ns 1 Gm/100 Ml IV QPM [facility] Protocol Insulin Glargine 20 units 09/16/20 11:00 09/18/20 08:31 Insulin Glargine 100 Units/Ml SUB-Q 20 units QAMDIAB ISIAH Administration Insulin Human Lispro 0 unit 09/11/20 12:00 09/18/20 05:44 Insulin Lispro 100 Unit/Ml SUB-Q 4 unit Q6HR ISIAH Administration Protocol Midazolam HCl 2 mg 09/12/20 17:30 09/13/20 12:05 Midazolam 2 Mg/2 Ml Inj IV 2 mg Q10MIN PRN Administration Sedation Simple Syrup 15 ml 09/11/20 11:45 Simple Syrup 15 Ml FEEDTUBE PRN PRN Hypoglycemia Simple Syrup 30 ml 09/11/20 11:45 Simple Syrup 15 Ml FEEDTUBE PRN PRN Hypoglycemia Sodium Bicarbonate 325 mg 09/11/20 11:45 Sodium Bicarbonate 325 Mg Tab FEEDTUBE PRN PRN For Clogged Feeding Tube Sodium Chloride 10 ml 09/08/20 22:00 09/18/20 09:45 Sodium Chloride 0.9% 10 Ml Flush Syringe IV 10 ml BID ISIAH Administration Sodium Chloride 10 ml 09/08/20 20:23 Sodium Chloride 0.9% 10 Ml Flush Syringe IV PRN PRN LINE FLUSH Zinc Sulfate 220 mg 09/08/20 22:00 09/18/20 09:44 Zinc Sulfate 220 Mg Cap PO 220 mg BID ISIAH Administration
--- NOTE | 2020-09-18 11:47 | Progress Note ---
Assessment and Plan Acute hypoxemic respiratory failure Acute respiratory distress syndrome COVID-19 infection Bilateral pneumonia Diabetes Hypertension Obesity Leukopenia Elevated serum inflammatory markers to include D-dimer, ferritin and LDH - stop IV Heparin and anticoagulation - send HIT assay - add Dopamine re: bradycardia - attending spooke with daughter regarding grave situation - attempt daily proning but 12 hours today re: developing skin breakdown - continue care as below otherwise; - continue HD/UF for toxin and volume clearance - repeat CBC in am re: thrombocytopenia - continue to wean vasopressors for target MAP > 65 mmHg - continue chacon catheter for strict I's & O's - continue Daily SAT and SBT assessment as tolerated - continue to wean supplemental oxygen for target O2 sat's > 90% acutely - VAP bundle addressed - continue lung protective strategies - continue bronchodilators with pulmonary hygiene per RT - wean per pulmonary driven protocols otherwise - avoid nephrotoxins, renally dose all medications - continue accuchecks with glycemic control per SSI (While critically ill target blood glucose of 140-180 mg/dL; avoid hypoglycemia) - sedation prn for target RASS 0 to -1 - continue to avoid benzodiazepine's, reduce the possibility of delirium - complete AB's per ID rec's - prn analgesia per CPOT score - Maintenance of sleep-wake cycle, avoid delirium - continue enteral nutritional support at goal rate as tolerated - G.I. & VTE prophylaxis - PT/OT/ROM exercises - continue mobility protocols for pressure ulcer prophylaxis - Monitor hemodynamics closely - continue other care per attending / other consultants - discharge planning ongoing concurrently COVID SPECIFIC INTERVENTIONS - Remdesivir as per ID/Pulmonary developed protocols (ordered) - to receive Actemra - continue systemic steroids for severe COVID-19 infection empirically - follow repeat COVID tests results - zinc and vitamin C supplementation - Monitor inflammatory markers per facility protocol - ferritin, Ddimer, CRP - therapeutic anticoagulation per system Protocol based on d-dimer and clinical considerations - Continue contact and airborne isolation .... Re-evaluate in am & prn CONDITION: CRITICAL PROGNOSIS: GUARDED CODE STATUS: FULL CODE The high probability of a clinically significant, sudden or life-threatening deterioration of the [respiratory, cardiovascular & neurologic] system(s) requ ired my full and direct attention, intervention and personal management. The aggregate critical care time was [32] minutes without overlap. Time includes spent on; [x] Data Review and interpretation [x] Patient assessment and monitoring of vital signs [x] Documentation [x] Medication orders and management Subjective Date of service: 09/18/20 Principal diagnosis: Ac hypoxemic resp failure; ARDS; COVID-19 infxn; PNA; DM II; Obesity Interval history: Patient is seen today for: Ac hypoxemic resp failure; ARDS; COVID-19 infxn; PNA; DM II; Obesity Seen and examined at bedside; 24hour events reviewed; nursing and respiratory care staff consulted; no adverse overnight events reported to me; resting in bed; remains on MVS; remains with severe ARDS; proned now but on 100% FiO2; no emesis or overt aspiration; now with bloody tracheal secretions and platelet count in 30's; + bradycardia this am Objective Vital Signs - 12hr 09/17/20 09/18/20 09/18/20 23:50 00:00 00:16 Temperature 100.5 F H Pulse Rate 73 74 73 Respiratory 30 H 30 H 30 H Rate Blood Pressure 144/59 O2 Sat by Pulse 97 97 95 Oximetry 09/18/20 09/18/20 09/18/20 00:30 00:46 01:00 Temperature Pulse Rate 73 80 85 Respiratory 30 H 30 H 30 H Rate Blood Pressure O2 Sat by Pulse 95 93 96 Oximetry 09/18/20 09/18/20 09/18/20 01:16 01:30 01:46 Temperature Pulse Rate 73 71 70 Respiratory 30 H 30 H 30 H Rate Blood Pressure O2 Sat by Pulse 97 97 97 Oximetry 09/18/20 09/18/20 09/18/20 02:00 02:16 02:30 Temperature Pulse Rate 69 69 67 Respiratory 30 H 30 H 30 H Rate Blood Pressure O2 Sat by Pulse 97 97 97 Oximetry 09/18/20 09/18/20 09/18/20 02:46 03:00 03:16 Temperature Pulse Rate 69 69 67 Respiratory 30 H 30 H 30 H Rate Blood Pressure O2 Sat by Pulse 97 97 95 Oximetry 09/18/20 09/18/20 09/18/20 03:30 03:46 04:00 Temperature 101.3 F H Pulse Rate 67 86 67 Respiratory 30 H 22 29 H Rate Blood Pressure 151/59 O2 Sat by Pulse 83 L 86 100 Oximetry 09/18/20 09/18/20 09/18/20 04:15 04:30 04:46 Temperature Pulse Rate 88 78 74 Respiratory 29 H 30 H 30 H Rate Blood Pressure 140/57 140/57 140/57 O2 Sat by Pulse 98 99 100 Oximetry 09/18/20 09/18/20 09/18/20 05:00 05:16 05:30 Temperature Pulse Rate 71 87 66 Respiratory 30 H 30 H 29 H Rate Blood Pressure 154/58 O2 Sat by Pulse 100 100 100 Oximetry 09/18/20 09/18/20 09/18/20 05:45 06:00 06:15 Temperature Pulse Rate 64 68 69 Respiratory 30 H 30 H 30 H Rate Blood Pressure 165/61 142/58 147/61 O2 Sat by Pulse 96 96 96 Oximetry 09/18/20 09/18/20 09/18/20 06:30 06:45 07:00 Temperature 99.0 F Pulse Rate 67 69 66 Respiratory 30 H 30 H 30 H Rate Blood Pressure 149/62 151/59 159/61 O2 Sat by Pulse 96 95 95 Oximetry 09/18/20 09/18/20 09/18/20 07:15 07:30 07:45 Temperature Pulse Rate 64 71 70 Respiratory 30 H 30 H 30 H Rate Blood Pressure 153/62 151/59 149/53 O2 Sat by Pulse 96 95 96 Oximetry 09/18/20 09/18/20 09/18/20 08:00 08:15 08:30 Temperature Pulse Rate 69 66 66 Respiratory 30 H 30 H 30 H Rate Blood Pressure 131/57 128/56 132/54 O2 Sat by Pulse 96 96 97 Oximetry 09/18/20 09/18/20 09/18/20 08:45 09:00 09:15 Temperature Pulse Rate 66 65 68 Respiratory 30 H 30 H 30 H Rate Blood Pressure 133/55 141/57 116/49 O2 Sat by Pulse 96 96 95 Oximetry 09/18/20 09/18/20 09/18/20 09:30 09:45 10:00 Temperature Pulse Rate 65 69 66 Respiratory 30 H 30 H 30 H Rate Blood Pressure 116/49 128/52 138/57 O2 Sat by Pulse 98 91 95 Oximetry 09/18/20 09/18/20 09/18/20 10:15 10:30 10:45 Temperature Pulse Rate 68 66 66 Respiratory 30 H 30 H 30 H Rate Blood Pressure 146/60 143/56 149/57 O2 Sat by Pulse 95 95 96 Oximetry 09/18/20 11:00 Temperature Pulse Rate 69 Respiratory 30 H Rate Blood Pressure 149/57 O2 Sat by Pulse 100 Oximetry Constitutional: appears uncomfortable, other (elderly obese female with mildly increased respiratory effort at rest on MVS) Eyes: non-icteric ENT: oropharynx moist, other (ETT 24 cm STEVEN) Neck: supple, other (large circumference) Effort: mildly labored Ascultation: Bilateral: diminished breath sounds, rhonchi Percussion: Bilateral: not dull Cardiovascular: regular rate and rhythm Gastrointestinal: normoactive bowel sounds, soft, non-tender, non-distended (protuberant) Integumentary: other (some excoriation to skin of face) Extremities: no cyanosis, no edema, pulses normal, no ischemia or petechiae Neurologic: non-focal exam (grossly), pupils equal and round, motor strength normal and, other (sedated) Psychiatric: other (unable to assess) CBC and BMP: 09/19/20 05:12 09/18/20 05:15 ABG, PT/INR, D-dimer: ABG ABG pH 7.282 (7.320-7.450) L 09/18/20 09:36 POC ABG pCO2 45.1 mmHg (32.0-48.0) 09/18/20 09:36 POC ABG pO2 149.0 mmHg (83-108) H 09/18/20 09:36 POC ABG HCO3 20.8 09/18/20 09:36 ABG O2 Saturation 98.7 (0-100) 09/18/20 09:36 PT/INR, D-dimer PT 18.8 Sec. (12.2-14.9) H 09/15/20 14:00 INR 1.52 (0.87-1.13) H 09/15/20 14:00 D-Dimer > 60420 ng/mlDDU (0-234) H 09/17/20 04:52 Abnormal lab findings: Abnormal Labs 09/08/20 09/08/20 09/08/20 17:37 17:37 17:37 WBC 4.3 L RBC Hgb Hct RDW Plt Count 106 L Lymph % (Auto) [place] % (Auto) 7.5 H Lymph # (Auto) 0.6 L Seg Neutrophils % 77.4 H Seg Neuts % (Manual) Lymphocytes % (Manual) Seg Neutrophils # Seg Neutrophils # Man Lymphocytes # (Manual) PT INR D-Dimer 741.67 H Heparin Anti-Xa Level ABG pH POC ABG pCO2 POC ABG pO2 ABG Hemoglobin ABG Oxyhemoglobin ABG Sodium ABG Potassium ABG Chloride ABG Glucose Carboxyhemoglobin Sodium 129 L Potassium Chloride 91.9 L Carbon Dioxide BUN 32 H Creatinine 1.5 H Glucose 200 H POC Glucose Calcium 8.1 L Phosphorus Magnesium Ferritin AST 49 H Lactate Dehydrogenase C-Reactive Protein Total Protein Albumin 2.7 L TSH Arterial Blood Glucose Arterial Blood Ionized Calcium Ur Specific Portal Urine Creatinine Coronavirus (PCR) 09/08/20 09/08/20 09/08/20 17:37 17:37 22:24 WBC RBC Hgb Hct RDW Plt Count Lymph % (Auto) [place] % (Auto) Lymph # (Auto) Seg Neutrophils % Seg Neuts % (Manual) Lymphocytes % (Manual) Seg Neutrophils # Seg Neutrophils # Man Lymphocytes # (Manual) PT INR D-Dimer Heparin Anti-Xa Level ABG pH POC ABG pCO2 POC ABG pO2 ABG Hemoglobin ABG Oxyhemoglobin ABG Sodium ABG Potassium ABG Chloride ABG Glucose Carboxyhemoglobin Sodium Potassium Chloride Carbon Dioxide BUN Creatinine Glucose 201 H POC Glucose Calcium Phosphorus Magnesium Ferritin 731.2 H AST Lactate Dehydrogenase 396 H C-Reactive Protein 7.00 H Total Protein Albumin TSH Arterial Blood Glucose Arterial Blood Ionized Calcium Ur Specific Portal 1.035 H Urine Creatinine Coronavirus (PCR) 09/08/20 09/09/20 09/09/20 23:35 07:30 08:28 WBC 3.4 L RBC Hgb 15.5 H Hct 47.1 H RDW Plt Count 95 L Lymph % (Auto) 9.5 L [place] % (Auto) Lymph # (Auto) 0.3 L Seg Neutrophils % 85.2 H Seg Neuts % (Manual) Lymphocytes % (Manual) Seg Neutrophils # Seg Neutrophils # Man Lymphocytes # (Manual) PT INR D-Dimer Heparin Anti-Xa Level ABG pH POC ABG pCO2 POC ABG pO2 ABG Hemoglobin ABG Oxyhemoglobin ABG Sodium ABG Potassium ABG Chloride ABG Glucose Carboxyhemoglobin Sodium Potassium Chloride Carbon Dioxide BUN Creatinine Glucose POC Glucose 188 H 281 H Calcium Phosphorus Magnesium Ferritin AST Lactate Dehydrogenase C-Reactive Protein Total Protein Albumin TSH Arterial Blood Glucose Arterial Blood Ionized Calcium Ur Specific Portal Urine Creatinine Coronavirus (PCR) 09/09/20 09/09/20 09/09/20 08:28 09:00 11:48 WBC RBC Hgb Hct RDW Plt Count Lymph % (Auto) [place] % (Auto) Lymph # (Auto) Seg Neutrophils % Seg Neuts % (Manual) Lymphocytes % (Manual) Seg Neutrophils # Seg Neutrophils # Man Lymphocytes # (Manual) PT INR D-Dimer Heparin Anti-Xa Level ABG pH POC ABG pCO2 POC ABG pO2 ABG Hemoglobin ABG Oxyhemoglobin ABG Sodium ABG Potassium ABG Chloride ABG Glucose Carboxyhemoglobin Sodium 130 L Potassium Chloride 93.5 L Carbon Dioxide BUN 31 H Creatinine 1.3 H Glucose 266 H POC Glucose 354 H Calcium Phosphorus Magnesium Ferritin AST 48 H Lactate Dehydrogenase C-Reactive Protein Total Protein Albumin 2.8 L TSH Arterial Blood Glucose Arterial Blood Ionized Calcium Ur Specific Portal Urine Creatinine Coronavirus (PCR) Positive A 09/09/20 09/09/20 09/10/20 17:21 21:15 08:00 WBC RBC Hgb Hct RDW Plt Count Lymph % (Auto) [place] % (Auto) Lymph # (Auto) Seg Neutrophils % Seg Neuts % (Manual) Lymphocytes % (Manual) Seg Neutrophils # Seg Neutrophils # Man Lymphocytes # (Manual) PT INR D-Dimer Heparin Anti-Xa Level ABG pH POC ABG pCO2 POC ABG pO2 ABG Hemoglobin ABG Oxyhemoglobin ABG Sodium ABG Potassium ABG Chloride ABG Glucose Carboxyhemoglobin Sodium Potassium Chloride Carbon Dioxide BUN Creatinine Glucose POC Glucose 332 H 226 H 240 H Calcium Phosphorus Magnesium Ferritin AST Lactate Dehydrogenase C-Reactive Protein Total Protein Albumin TSH Arterial Blood Glucose Arterial Blood Ionized Calcium Ur Specific Portal Urine Creatinine Coronavirus (PCR) 09/10/20 09/10/20 09/10/20 12:12 15:14 16:43 WBC RBC Hgb Hct RDW Plt Count Lymph % (Auto) [place] % (Auto) Lymph # (Auto) Seg Neutrophils % Seg Neuts % (Manual) Lymphocytes % (Manual) Seg Neutrophils # Seg Neutrophils # Man Lymphocytes # (Manual) PT INR D-Dimer Heparin Anti-Xa Level ABG pH POC ABG pCO2 48.5 H POC ABG pO2 51.9 L ABG Hemoglobin ABG Oxyhemoglobin 85.1 L ABG Sodium 135.6 L ABG Potassium ABG Chloride ABG Glucose 310 H Carboxyhemoglobin Sodium 132 L Potassium Chloride 93.2 L Carbon Dioxide BUN 43 H Creatinine 1.6 H Glucose 277 H POC Glucose 267 H Calcium Phosphorus Magnesium Ferritin AST 49 H Lactate Dehydrogenase C-Reactive Protein Total Protein 8.3 H Albumin 3.0 L TSH Arterial Blood Glucose 310 H Arterial Blood Ionized Calcium Ur Specific Portal Urine Creatinine Coronavirus (PCR) 09/10/20 09/10/20 09/11/20 21:34 23:33 05:56 WBC RBC Hgb Hct RDW Plt Count Lymph % (Auto) [place] % (Auto) Lymph # (Auto) Seg Neutrophils % Seg Neuts % (Manual) Lymphocytes % (Manual) Seg Neutrophils # Seg Neutrophils # Man Lymphocytes # (Manual) PT INR D-Dimer Heparin Anti-Xa Level ABG pH POC ABG pCO2 POC ABG pO2 ABG Hemoglobin ABG Oxyhemoglobin ABG Sodium 135.9 L ABG Potassium ABG Chloride ABG Glucose 341 H Carboxyhemoglobin Sodium 133 L Potassium Chloride 94.2 L Carbon Dioxide BUN 54 H Creatinine 1.6 H Glucose 318 H POC Glucose 306 H Calcium Phosphorus Magnesium Ferritin AST 46 H Lactate Dehydrogenase C-Reactive Protein Total Protein Albumin 2.7 L TSH Arterial Blood Glucose 341 H Arterial Blood Ionized Calcium 4.5 L Ur Specific Portal Urine Creatinine Coronavirus (PCR) 09/11/20 09/11/20 09/11/20 05:56 07:22 09:00 WBC RBC Hgb Hct RDW Plt Count Lymph % (Auto) [place] % (Auto) Lymph # (Auto) Seg Neutrophils % Seg Neuts % (Manual) Lymphocytes % (Manual) Seg Neutrophils # Seg Neutrophils # Man Lymphocytes # (Manual) PT INR D-Dimer Heparin Anti-Xa Level ABG pH POC ABG pCO2 POC ABG pO2 80.1 L ABG Hemoglobin ABG Oxyhemoglobin ABG Sodium 134.5 L ABG Potassium ABG Chloride ABG Glucose 334 H Carboxyhemoglobin Sodium Potassium Chloride Carbon Dioxide BUN Creatinine Glucose POC Glucose 305 H Calcium Phosphorus Magnesium Ferritin AST Lactate Dehydrogenase 755 H C-Reactive Protein 5.50 H Total Protein Albumin TSH Arterial Blood Glucose 334 H Arterial Blood Ionized Calcium Ur Specific Portal Urine Creatinine Coronavirus (PCR) 09/11/20 09/11/20 09/11/20 11:33 18:17 19:00 WBC RBC Hgb Hct RDW Plt Count Lymph % (Auto) [place] % (Auto) Lymph # (Auto) Seg Neutrophils % Seg Neuts % (Manual) Lymphocytes % (Manual) Seg Neutrophils # Seg Neutrophils # Man Lymphocytes # (Manual) PT INR D-Dimer Heparin Anti-Xa Level ABG pH POC ABG pCO2 POC ABG pO2 146.4 H ABG Hemoglobin ABG Oxyhemoglobin 98.3 H ABG Sodium ABG Potassium ABG Chloride ABG Glucose 267 H Carboxyhemoglobin 0.4 L Sodium Potassium Chloride Carbon Dioxide BUN Creatinine Glucose POC Glucose 304 H 296 H Calcium Phosphorus Magnesium Ferritin AST Lactate Dehydrogenase C-Reactive Protein Total Protein Albumin TSH Arterial Blood Glucose 267 H Arterial Blood Ionized Calcium Ur Specific Portal Urine Creatinine Coronavirus (PCR) 09/11/20 09/11/20 09/11/20 20:30 22:23 Unknown WBC RBC Hgb Hct RDW Plt Count Lymph % (Auto) [place] % (Auto) Lymph # (Auto) Seg Neutrophils % Seg Neuts % (Manual) Lymphocytes % (Manual) Seg Neutrophils # Seg Neutrophils # Man Lymphocytes # (Manual) PT INR D-Dimer 1324.85 H Heparin Anti-Xa Level ABG pH POC ABG pCO2 POC ABG pO2 ABG Hemoglobin ABG Oxyhemoglobin ABG Sodium ABG Potassium ABG Chloride ABG Glucose Carboxyhemoglobin Sodium Potassium Chloride Carbon Dioxide BUN Creatinine Glucose POC Glucose 268 H Calcium Phosphorus Magnesium Ferritin 1434.0 H AST Lactate Dehydrogenase C-Reactive Protein Total Protein Albumin TSH Arterial Blood Glucose Arterial Blood Ionized Calcium Ur Specific Portal Urine Creatinine Coronavirus (PCR) 09/11/20 09/12/20 09/12/20 Unknown 04:00 05:30 WBC RBC Hgb Hct RDW Plt Count Lymph % (Auto) [place] % (Auto) Lymph # (Auto) Seg Neutrophils % Seg Neuts % (Manual) Lymphocytes % (Manual) Seg Neutrophils # Seg Neutrophils # Man Lymphocytes # (Manual) PT INR D-Dimer Heparin Anti-Xa Level ABG pH POC ABG pCO2 POC ABG pO2 190.7 H ABG Hemoglobin 17.7 H ABG Oxyhemoglobin 98.9 H ABG Sodium ABG Potassium ABG Chloride ABG Glucose 322 H Carboxyhemoglobin 0.2 L Sodium Potassium Chloride Carbon Dioxide BUN 58 H Creatinine 1.8 H Glucose 279 H POC Glucose 313 H Calcium 7.9 L Phosphorus Magnesium Ferritin AST Lactate Dehydrogenase C-Reactive Protein Total Protein Albumin TSH Arterial Blood Glucose 322 H Arterial Blood Ionized Calcium Ur Specific Portal Urine Creatinine Coronavirus (PCR) 09/12/20 09/12/20 09/12/20 08:43 11:58 13:30 WBC RBC Hgb Hct RDW Plt Count Lymph % (Auto) [place] % (Auto) Lymph # (Auto) Seg Neutrophils % Seg Neuts % (Manual) Lymphocytes % (Manual) Seg Neutrophils # Seg Neutrophils # Man Lymphocytes # (Manual) PT INR D-Dimer Heparin Anti-Xa Level ABG pH POC ABG pCO2 POC ABG pO2 ABG Hemoglobin ABG Oxyhemoglobin ABG Sodium ABG Potassium ABG Chloride ABG Glucose Carboxyhemoglobin Sodium Potassium Chloride Carbon Dioxide BUN 51 H Creatinine 1.4 H Glucose 317 H POC Glucose 329 H Calcium Phosphorus Magnesium Ferritin AST Lactate Dehydrogenase C-Reactive Protein Total Protein Albumin 3.0 L TSH Arterial Blood Glucose Arterial Blood Ionized Calcium Ur Specific Portal Urine Creatinine 43.2 H Coronavirus (PCR) 09/12/20 09/12/20 09/12/20 17:17 17:17 17:55 WBC RBC Hgb 14.5 H Hct 43.5 H RDW Plt Count Lymph % (Auto) [place] % (Auto) Lymph # (Auto) Seg Neutrophils % Seg Neuts % (Manual) 96.0 H Lymphocytes % (Manual) 1.0 L Seg Neutrophils # Seg Neutrophils # Man 9.8 H Lymphocytes # (Manual) 0.1 L PT INR D-Dimer Heparin Anti-Xa Level ABG pH POC ABG pCO2 POC ABG pO2 ABG Hemoglobin ABG Oxyhemoglobin ABG Sodium ABG Potassium ABG Chloride ABG Glucose Carboxyhemoglobin Sodium Potassium Chloride Carbon Dioxide BUN Creatinine Glucose POC Glucose 425 H Calcium Phosphorus Magnesium Ferritin AST Lactate Dehydrogenase C-Reactive Protein Total Protein Albumin TSH 0.067 L Arterial Blood Glucose Arterial Blood Ionized Calcium Ur Specific Portal Urine Creatinine Coronavirus (PCR) 09/12/20 09/13/20 09/13/20 23:19 03:32 04:22 WBC RBC Hgb Hct RDW Plt Count Lymph % (Auto) [place] % (Auto) Lymph # (Auto) Seg Neutrophils % Seg Neuts % (Manual) Lymphocytes % (Manual) Seg Neutrophils # Seg Neutrophils # Man Lymphocytes # (Manual) PT INR D-Dimer Heparin Anti-Xa Level ABG pH 7.276 L 7.275 L POC ABG pCO2 54.0 H 54.7 H POC ABG pO2 46.6 L 47.1 L ABG Hemoglobin ABG Oxyhemoglobin 78.9 L 79.4 L ABG Sodium ABG Potassium ABG Chloride ABG Glucose 260 H 261 H Carboxyhemoglobin Sodium Potassium Chloride Carbon Dioxide BUN Creatinine Glucose POC Glucose 348 H Calcium Phosphorus Magnesium Ferritin AST Lactate Dehydrogenase C-Reactive Protein Total Protein Albumin TSH Arterial Blood Glucose 260 H 261 H Arterial Blood Ionized Calcium Ur Specific Portal Urine Creatinine Coronavirus (PCR) 09/13/20 09/13/20 09/13/20 04:52 11:53 17:13 WBC RBC Hgb Hct RDW Plt Count Lymph % (Auto) [place] % (Auto) Lymph # (Auto) Seg Neutrophils % Seg Neuts % (Manual) Lymphocytes % (Manual) Seg Neutrophils # Seg Neutrophils # Man Lymphocytes # (Manual) PT INR D-Dimer Heparin Anti-Xa Level ABG pH POC ABG pCO2 POC ABG pO2 ABG Hemoglobin ABG Oxyhemoglobin ABG Sodium ABG Potassium ABG Chloride ABG Glucose Carboxyhemoglobin Sodium Potassium Chloride Carbon Dioxide BUN Creatinine Glucose POC Glucose 229 H 302 H 356 H Calcium Phosphorus Magnesium Ferritin AST Lactate Dehydrogenase C-Reactive Protein Total Protein Albumin TSH Arterial Blood Glucose Arterial Blood Ionized Calcium Ur Specific Portal Urine Creatinine Coronavirus (PCR) 09/13/20 09/13/20 09/13/20 23:46 Unknown Unknown WBC RBC Hgb Hct RDW Plt Count 135 L Lymph % (Auto) [place] % (Auto) Lymph # (Auto) Seg Neutrophils % Seg Neuts % (Manual) Lymphocytes % (Manual) Seg Neutrophils # Seg Neutrophils # Man Lymphocytes # (Manual) PT INR D-Dimer Heparin Anti-Xa Level ABG pH POC ABG pCO2 POC ABG pO2 ABG Hemoglobin ABG Oxyhemoglobin ABG Sodium ABG Potassium ABG Chloride ABG Glucose Carboxyhemoglobin Sodium Potassium Chloride Carbon Dioxide BUN 54 H Creatinine 1.6 H Glucose 255 H POC Glucose 263 H Calcium Phosphorus Magnesium Ferritin AST Lactate Dehydrogenase C-Reactive Protein Total Protein Albumin 2.8 L TSH Arterial Blood Glucose Arterial Blood Ionized Calcium Ur Specific Portal Urine Creatinine Coronavirus (PCR) 09/14/20 09/14/20 09/14/20 05:46 10:53 10:53 WBC RBC Hgb Hct RDW Plt Count Lymph % (Auto) [place] % (Auto) Lymph # (Auto) Seg Neutrophils % Seg Neuts % (Manual) Lymphocytes % (Manual) Seg Neutrophils # Seg Neutrophils # Man Lymphocytes # (Manual) PT INR D-Dimer > 01394 H Heparin Anti-Xa Level ABG pH POC ABG pCO2 POC ABG pO2 ABG Hemoglobin ABG Oxyhemoglobin ABG Sodium ABG Potassium ABG Chloride ABG Glucose Carboxyhemoglobin Sodium Potassium Chloride Carbon Dioxide BUN 71 H Creatinine 2.8 H D Glucose 167 H POC Glucose 226 H Calcium Phosphorus 4.90 H D Magnesium 2.40 H Ferritin AST Lactate Dehydrogenase C-Reactive Protein 5.40 H Total Protein 5.9 L Albumin 2.7 L TSH Arterial Blood Glucose Arterial Blood Ionized Calcium Ur Specific Portal Urine Creatinine Coronavirus (PCR) 09/14/20 09/14/20 09/14/20 11:33 13:45 17:29 WBC RBC Hgb Hct RDW Plt Count Lymph % (Auto) [place] % (Auto) Lymph # (Auto) Seg Neutrophils % Seg Neuts % (Manual) Lymphocytes % (Manual) Seg Neutrophils # Seg Neutrophils # Man Lymphocytes # (Manual) PT INR D-Dimer Heparin Anti-Xa Level ABG pH 7.225 L POC ABG pCO2 60.1 H POC ABG pO2 ABG Hemoglobin ABG Oxyhemoglobin ABG Sodium ABG Potassium 5.2 H ABG Chloride 109.0 H ABG Glucose 205 H Carboxyhemoglobin Sodium Potassium Chloride Carbon Dioxide BUN Creatinine Glucose POC Glucose 166 H 202 H Calcium Phosphorus Magnesium Ferritin AST Lactate Dehydrogenase C-Reactive Protein Total Protein Albumin TSH Arterial Blood Glucose 205 H Arterial Blood Ionized Calcium Ur Specific Portal Urine Creatinine Coronavirus (PCR) 09/15/20 09/15/20 09/15/20 00:19 03:10 03:10 WBC 13.5 H RBC Hgb Hct RDW Plt Count 77 L Lymph % (Auto) 3.9 L [place] % (Auto) Lymph # (Auto) 0.5 L Seg Neutrophils % 89.9 H Seg Neuts % (Manual) Lymphocytes % (Manual) Seg Neutrophils # 12.1 H Seg Neutrophils # Man Lymphocytes # (Manual) PT INR D-Dimer Heparin Anti-Xa Level ABG pH POC ABG pCO2 POC ABG pO2 ABG Hemoglobin ABG Oxyhemoglobin ABG Sodium ABG Potassium ABG Chloride ABG Glucose Carboxyhemoglobin Sodium Potassium 5.7 H Chloride 107.7 H Carbon Dioxide 21 L BUN 85 H Creatinine 4.1 H Glucose 166 H POC Glucose 174 H Calcium Phosphorus Magnesium Ferritin AST Lactate Dehydrogenase C-Reactive Protein Total Protein 5.9 L Albumin 2.3 L TSH Arterial Blood Glucose Arterial Blood Ionized Calcium Ur Specific Portal Urine Creatinine Coronavirus (PCR) 09/15/20 09/15/20 09/15/20 03:10 03:10 05:34 WBC RBC Hgb Hct RDW Plt Count Lymph % (Auto) [place] % (Auto) Lymph # (Auto) Seg Neutrophils % Seg Neuts % (Manual) Lymphocytes % (Manual) Seg Neutrophils # Seg Neutrophils # Man Lymphocytes # (Manual) PT INR D-Dimer > 62299 H Heparin Anti-Xa Level ABG pH POC ABG pCO2 POC ABG pO2 ABG Hemoglobin ABG Oxyhemoglobin ABG Sodium ABG Potassium ABG Chloride ABG Glucose Carboxyhemoglobin Sodium Potassium Chloride Carbon Dioxide BUN Creatinine Glucose POC Glucose 146 H Calcium Phosphorus 6.50 H D Magnesium 2.40 H Ferritin AST Lactate Dehydrogenase C-Reactive Protein 3.90 H Total Protein Albumin TSH Arterial Blood Glucose Arterial Blood Ionized Calcium Ur Specific Portal Urine Creatinine Coronavirus (PCR) 09/15/20 09/15/20 09/15/20 06:12 12:30 13:25 WBC RBC Hgb Hct RDW Plt Count Lymph % (Auto) [place] % (Auto) Lymph # (Auto) Seg Neutrophils % Seg Neuts % (Manual) Lymphocytes % (Manual) Seg Neutrophils # Seg Neutrophils # Man Lymphocytes # (Manual) PT INR D-Dimer Heparin Anti-Xa Level ABG pH 7.178 L POC ABG pCO2 58.7 H POC ABG pO2 65.2 L ABG Hemoglobin ABG Oxyhemoglobin 90.5 L ABG Sodium ABG Potassium 5.1 H ABG Chloride 110.0 H ABG Glucose 173 H Carboxyhemoglobin Sodium Potassium 5.5 H 5.4 H Chloride 108.0 H Carbon Dioxide BUN 87 H 89 H Creatinine 4.3 H 4.2 H Glucose 151 H 180 H POC Glucose Calcium 8.2 L Phosphorus 6.70 H Magnesium Ferritin AST Lactate Dehydrogenase C-Reactive Protein Total Protein Albumin TSH Arterial Blood Glucose 173 H Arterial Blood Ionized Calcium Ur Specific Portal Urine Creatinine Coronavirus (PCR) 09/15/20 09/15/20 09/15/20 13:33 14:00 14:00 WBC RBC Hgb Hct RDW Plt Count 86 L Lymph % (Auto) [place] % (Auto) Lymph # (Auto) Seg Neutrophils % Seg Neuts % (Manual) Lymphocytes % (Manual) Seg Neutrophils # Seg Neutrophils # Man Lymphocytes # (Manual) PT 18.8 H INR 1.52 H D-Dimer Heparin Anti-Xa Level ABG pH POC ABG pCO2 POC ABG pO2 ABG Hemoglobin ABG Oxyhemoglobin ABG Sodium ABG Potassium ABG Chloride ABG Glucose Carboxyhemoglobin Sodium Potassium Chloride Carbon Dioxide BUN Creatinine Glucose POC Glucose 146 H Calcium Phosphorus Magnesium Ferritin AST Lactate Dehydrogenase C-Reactive Protein Total Protein Albumin TSH Arterial Blood Glucose Arterial Blood Ionized Calcium Ur Specific Portal Urine Creatinine Coronavirus (PCR) 09/15/20 09/15/20 09/15/20 18:02 21:10 23:04 WBC RBC Hgb Hct RDW Plt Count Lymph % (Auto) [place] % (Auto) Lymph # (Auto) Seg Neutrophils % Seg Neuts % (Manual) Lymphocytes % (Manual) Seg Neutrophils # Seg Neutrophils # Man Lymphocytes # (Manual) PT INR D-Dimer Heparin Anti-Xa Level 0.78 H ABG pH POC ABG pCO2 POC ABG pO2 ABG Hemoglobin ABG Oxyhemoglobin ABG Sodium ABG Potassium ABG Chloride ABG Glucose Carboxyhemoglobin Sodium Potassium Chloride Carbon Dioxide BUN Creatinine Glucose POC Glucose 241 H 296 H Calcium Phosphorus Magnesium Ferritin AST Lactate Dehydrogenase C-Reactive Protein Total Protein Albumin TSH Arterial Blood Glucose Arterial Blood Ionized Calcium Ur Specific Portal Urine Creatinine Coronavirus (PCR) 09/15/20 09/16/20 09/16/20 23:33 02:45 04:00 WBC 22.7 H RBC Hgb Hct RDW Plt Count 105 L Lymph % (Auto) [place] % (Auto) Lymph # (Auto) Seg Neutrophils % Seg Neuts % (Manual) Lymphocytes % (Manual) Seg Neutrophils # Seg Neutrophils # Man Lymphocytes # (Manual) PT INR D-Dimer Heparin Anti-Xa Level ABG pH 7.171 L POC ABG pCO2 57.1 H POC ABG pO2 144.1 H ABG Hemoglobin ABG Oxyhemoglobin ABG Sodium ABG Potassium 5.0 H ABG Chloride ABG Glucose 273 H Carboxyhemoglobin Sodium Potassium Chloride Carbon Dioxide BUN Creatinine Glucose POC Glucose 298 H Calcium Phosphorus Magnesium Ferritin AST Lactate Dehydrogenase C-Reactive Protein Total Protein Albumin TSH Arterial Blood Glucose 273 H Arterial Blood Ionized Calcium 4.5 L Ur Specific Portal Urine Creatinine Coronavirus (PCR) 09/16/20 09/16/20 09/16/20 04:20 05:10 11:38 WBC RBC Hgb Hct RDW Plt Count Lymph % (Auto) [place] % (Auto) Lymph # (Auto) Seg Neutrophils % Seg Neuts % (Manual) Lymphocytes % (Manual) Seg Neutrophils # Seg Neutrophils # Man Lymphocytes # (Manual) PT INR D-Dimer Heparin Anti-Xa Level ABG pH POC ABG pCO2 POC ABG pO2 ABG Hemoglobin ABG Oxyhemoglobin ABG Sodium ABG Potassium ABG Chloride ABG Glucose Carboxyhemoglobin Sodium Potassium 5.4 H Chloride Carbon Dioxide BUN 75 H Creatinine 3.7 H Glucose 265 H POC Glucose 269 H 279 H Calcium Phosphorus Magnesium Ferritin AST 46 H Lactate Dehydrogenase C-Reactive Protein Total Protein 6.2 L Albumin 2.9 L TSH Arterial Blood Glucose Arterial Blood Ionized Calcium Ur Specific Portal Urine Creatinine Coronavirus (PCR) 09/16/20 09/16/20 09/16/20 13:45 17:21 23:37 WBC RBC Hgb Hct RDW Plt Count Lymph % (Auto) [place] % (Auto) Lymph # (Auto) Seg Neutrophils % Seg Neuts % (Manual) Lymphocytes % (Manual) Seg Neutrophils # Seg Neutrophils # Man Lymphocytes # (Manual) PT INR D-Dimer Heparin Anti-Xa Level ABG pH 7.156 L POC ABG pCO2 59.8 H POC ABG pO2 48.2 L ABG Hemoglobin ABG Oxyhemoglobin 78.1 L ABG Sodium ABG Potassium 5.2 H ABG Chloride ABG Glucose 302 H Carboxyhemoglobin Sodium Potassium Chloride Carbon Dioxide BUN Creatinine Glucose POC Glucose 285 H 385 H Calcium Phosphorus Magnesium Ferritin AST Lactate Dehydrogenase C-Reactive Protein Total Protein Albumin TSH Arterial Blood Glucose 302 H Arterial Blood Ionized Calcium 4.4 L Ur Specific Portal Urine Creatinine Coronavirus (PCR) 09/17/20 09/17/20 09/17/20 04:52 04:52 04:52 WBC 19.4 H RBC Hgb Hct RDW 15.5 H Plt Count 91 L Lymph % (Auto) [place] % (Auto) Lymph # (Auto) Seg Neutrophils % Seg Neuts % (Manual) Lymphocytes % (Manual) Seg Neutrophils # Seg Neutrophils # Man Lymphocytes # (Manual) PT INR D-Dimer > 65127 H Heparin Anti-Xa Level ABG pH POC ABG pCO2 POC ABG pO2 ABG Hemoglobin ABG Oxyhemoglobin ABG Sodium ABG Potassium ABG Chloride ABG Glucose Carboxyhemoglobin Sodium Potassium 5.1 H Chloride Carbon Dioxide BUN 68 H Creatinine 4.1 H Glucose 291 H POC Glucose Calcium 8.3 L Phosphorus 5.60 H Magnesium Ferritin AST Lactate Dehydrogenase 729 H C-Reactive Protein 5.30 H Total Protein Albumin TSH Arterial Blood Glucose Arterial Blood Ionized Calcium Ur Specific Portal Urine Creatinine Coronavirus (PCR) 09/17/20 09/17/20 09/17/20 04:52 05:20 12:02 WBC RBC Hgb Hct RDW Plt Count Lymph % (Auto) [place] % (Auto) Lymph # (Auto) Seg Neutrophils % Seg Neuts % (Manual) Lymphocytes % (Manual) Seg Neutrophils # Seg Neutrophils # Man Lymphocytes # (Manual) PT INR D-Dimer Heparin Anti-Xa Level ABG pH POC ABG pCO2 POC ABG pO2 ABG Hemoglobin ABG Oxyhemoglobin ABG Sodium ABG Potassium ABG Chloride ABG Glucose Carboxyhemoglobin Sodium Potassium Chloride Carbon Dioxide BUN Creatinine Glucose POC Glucose 312 H 240 H Calcium Phosphorus Magnesium Ferritin 1323.0 H AST Lactate Dehydrogenase C-Reactive Protein Total Protein Albumin TSH Arterial Blood Glucose Arterial Blood Ionized Calcium Ur Specific Portal Urine Creatinine Coronavirus (PCR) 09/17/20 09/17/20 09/18/20 17:52 23:19 05:06 WBC RBC Hgb Hct RDW Plt Count Lymph % (Auto) [place] % (Auto) Lymph # (Auto) Seg Neutrophils % Seg Neuts % (Manual) Lymphocytes % (Manual) Seg Neutrophils # Seg Neutrophils # Man Lymphocytes # (Manual) PT INR D-Dimer Heparin Anti-Xa Level ABG pH POC ABG pCO2 POC ABG pO2 ABG Hemoglobin ABG Oxyhemoglobin ABG Sodium ABG Potassium ABG Chloride ABG Glucose Carboxyhemoglobin Sodium Potassium Chloride Carbon Dioxide BUN Creatinine Glucose POC Glucose 242 H 304 H 233 H Calcium Phosphorus Magnesium Ferritin AST Lactate Dehydrogenase C-Reactive Protein Total Protein Albumin TSH Arterial Blood Glucose Arterial Blood Ionized Calcium Ur Specific Portal Urine Creatinine Coronavirus (PCR) 09/18/20 09/18/20 09/18/20 05:15 05:15 09:36 WBC 20.4 H RBC 3.51 L Hgb Hct RDW 15.3 H Plt Count 31 L Lymph % (Auto) [place] % (Auto) Lymph # (Auto) Seg Neutrophils % Seg Neuts % (Manual) Lymphocytes % (Manual) Seg Neutrophils # Seg Neutrophils # Man Lymphocytes # (Manual) PT INR D-Dimer Heparin Anti-Xa Level ABG pH 7.282 L POC ABG pCO2 POC ABG pO2 149.0 H ABG Hemoglobin 10.4 L ABG Oxyhemoglobin ABG Sodium 135.9 L ABG Potassium ABG Chloride ABG Glucose 221 H Carboxyhemoglobin Sodium 135 L Potassium Chloride Carbon Dioxide BUN 57 H Creatinine 4.1 H Glucose 228 H POC Glucose Calcium 7.5 L Phosphorus 5.20 H Magnesium Ferritin AST Lactate Dehydrogenase C-Reactive Protein Total Protein Albumin TSH Arterial Blood Glucose 221 H Arterial Blood Ionized Calcium 4.1 L Ur Specific Portal Urine Creatinine Coronavirus (PCR) 09/18/20 11:35 WBC RBC Hgb Hct RDW Plt Count Lymph % (Auto) [place] % (Auto) Lymph # (Auto) Seg Neutrophils % Seg Neuts % (Manual) Lymphocytes % (Manual) Seg Neutrophils # Seg Neutrophils # Man Lymphocytes # (Manual) PT INR D-Dimer Heparin Anti-Xa Level ABG pH POC ABG pCO2 POC ABG pO2 ABG Hemoglobin ABG Oxyhemoglobin ABG Sodium ABG Potassium ABG Chloride ABG Glucose Carboxyhemoglobin Sodium Potassium Chloride Carbon Dioxide BUN Creatinine Glucose POC Glucose 238 H Calcium Phosphorus Magnesium Ferritin AST Lactate Dehydrogenase C-Reactive Protein Total Protein Albumin TSH Arterial Blood Glucose Arterial Blood Ionized Calcium Ur Specific Portal Urine Creatinine Coronavirus (PCR) Chest x-ray: image reviewed (dense bilateral pulmonary infiltrates) Allied health notes reviewed: nursing
--- NOTE | 2020-09-18 12:48 | Progress Note ---
Assessment and Plan Cultures: SARS CoV2 PCR: Positive 09/08/2020 blood culture: No growth 09/08/2020 urine culture: Usual skin stefania A/P: 75-year-old female with hypertension, diabetes, obesity hypoventilation syndrome was admitted to the hospital with cough, shortness of breath, not feeling well: #Shock, likely septic: no clear evidence of bacterial infection. Completed empiric CAP coverage. Probably related to severe/critical COVID. Rise in procal now probably from renal failure. #Bilateral COVID-19 pneumonia: critical disease. Remdesivir was discontinued due to worsening renal failure. #Acute hypoxic respiratory failure: On the vent with very high requirements. #Morbid obesity #Hypertension, diabetes #Leukopenia, mild thrombocytopenia, transaminitis: Likely related to COVID-19 #NICOLASA: worse, now requiring dialysis. Recs: -Patient now with increasing pressor requirements, will reculture, add broad- spectrum antibiotics: Cefepime, Vancomycin, fluconazole, renally dosed -Follow-up culture data -continue steroids, higher dose due to morbid obesity -IV Tocilizumab administered 09/12/2020 (remdesivir course was not completed due to worsening renal failure) -significantly high d-dimer, agree with anticoagulation -very poor prognosis Trang Narayanan MD [facility] ([facility] O: [phone] F: [phone] Subjective Date of service: 09/18/20 Principal diagnosis: Ac hypoxemic resp failure; ARDS; COVID-19 infxn; PNA; DM II; Obesity Interval history: Remains febrile to 101.3 with a white count of 20.4. Cultures remain negative. Objective - Exam Narrative Exam: Physical exam deferred to reduce risk of transmission of COVID-19. Please refer to primary team's note. - Constitutional Vitals: Vital Signs Temp Pulse Resp BP Pulse Ox 98.1 F 69 30 H 149/57 100 09/18/20 11:55 09/18/20 11:00 09/18/20 11:00 09/18/20 11:00 09/18/20 11:00 Temperature -Last 24 Hours Temperature 98.1 F Temperature 99.0 F Temperature 101.3 F Temperature 100.5 F Temperature 100.3 F Temperature 100.3 F Temperature 99.8 F - Labs CBC & Chem 7: 09/18/20 05:15 09/18/20 05:15 Labs: Abnormal lab results 09/17/20 09/17/20 09/18/20 Range/Units 17:52 23:19 05:06 WBC (4.5-11.0) K/mm3 RBC (3.65-5.03) M/mm3 RDW (13.2-15.2) % Plt Count (140-440) K/mm3 ABG pH (7.320-7.450) POC ABG pO2 (83-108) mmHg ABG Hemoglobin (12.0-17.5) ABG Sodium (136.0-145.0) mmol/L ABG Glucose (65-95) mg/dL Sodium (137-145) mmol/L BUN (7-17) mg/dL Creatinine (0.6-1.2) mg/dL Glucose (65-100) mg/dL POC Glucose 242 H 304 H 233 H (70-105) mg/dL Calcium (8.4-10.2) mg/dL Phosphorus (2.5-4.5) mg/dL Arterial Blood Glucose (65-95) mg/dL Arterial Blood Ionized Calcium (4.6-5.3) mg/dL 09/18/20 09/18/20 09/18/20 Range/Units 05:15 05:15 09:36 WBC 20.4 H (4.5-11.0) K/mm3 RBC 3.51 L (3.65-5.03) M/mm3 RDW 15.3 H (13.2-15.2) % Plt Count 31 L (140-440) K/mm3 ABG pH 7.282 L (7.320-7.450) POC ABG pO2 149.0 H (83-108) mmHg ABG Hemoglobin 10.4 L (12.0-17.5) ABG Sodium 135.9 L (136.0-145.0) mmol/L ABG Glucose 221 H (65-95) mg/dL Sodium 135 L (137-145) mmol/L BUN 57 H (7-17) mg/dL Creatinine 4.1 H (0.6-1.2) mg/dL Glucose 228 H (65-100) mg/dL POC Glucose (70-105) mg/dL Calcium 7.5 L (8.4-10.2) mg/dL Phosphorus 5.20 H (2.5-4.5) mg/dL Arterial Blood Glucose 221 H (65-95) mg/dL Arterial Blood Ionized Calcium 4.1 L (4.6-5.3) mg/dL 09/18/20 Range/Units 11:35 WBC (4.5-11.0) K/mm3 RBC (3.65-5.03) M/mm3 RDW (13.2-15.2) % Plt Count (140-440) K/mm3 ABG pH (7.320-7.450) POC ABG pO2 (83-108) mmHg ABG Hemoglobin (12.0-17.5) ABG Sodium (136.0-145.0) mmol/L ABG Glucose (65-95) mg/dL Sodium (137-145) mmol/L BUN (7-17) mg/dL Creatinine (0.6-1.2) mg/dL Glucose (65-100) mg/dL POC Glucose 238 H (70-105) mg/dL Calcium (8.4-10.2) mg/dL Phosphorus (2.5-4.5) mg/dL Arterial Blood Glucose (65-95) mg/dL Arterial Blood Ionized Calcium (4.6-5.3) mg/dL
[2020-09-18] MEDS ORDERED: ARGATROBAN 250 MG in SODIUM CHLORIDE 0.9% 250ML 247.5 ML IV SCH (14:00)
[2020-09-18] MEDS: FLUCONAZOLE 200 MG 200 MG/100 ML BAG IV SCH (14:37)
--- NOTE | 2020-09-18 17:50 | Progress Note ---
Assessment and Plan Assessment and plan: Assessment and plan: 72-year-old female with HTN, DM, OSH, OA admitted for COVID-19 pneumonia, sepsis, acute hypoxic respiratory failure, NICOLASA Neuro: Acute metabolic encephalopathy -Sedated with propofol, fentanyl, versed -RASS goal neg 4 -PERRL -family updated on plan of care -case management following Cardio: SB, H/O HTN, hypotension due to covid pna/sepsis -Atropine at bedside -Hold home Coreg-> no rate lowering meds; s/p bradycardia -SR-ST HR 60-70 -trend QT -NE, vaso for hypotension -Hydralazine IV as needed for SBP greater than 160 -normal biV function on echo -CVP- trend daily Respiratory: Acute hypoxic respiratory failure due to covid pna , Acute hypoxemic respiratory failure, COVID-19 infection, Bilateral pneumonia -Intubated 09/10 -Presented with pneumonia -CCM consulted, appreciate recommendations -VAP bundle -Wean mechanical ventilation as tolerated -Current vent settings: AC, 30/450/18/100 -see RT notes for titration/changes -Serial ABGs -Serial CXRs -proned 09/13-09/17 -continue duonebs GI: Morbid obesity, TF, cholelithiasis, transaminitis -Nutrition consulted, appreciate recommendations -tolerating TF -PPI -BR: Colace -BM 09/10 -Trend LFTs and tbili : Acute kidney injury 2/2 VMN -Presented with a BUN/creatinine of 1.5/32 -Avoid nephrotoxic medication -Nephrology consulted, appreciate recommendations -Strict intake and output -bladder scanning with intermittent straight caths -Daily weights -Trend BMP -renal consulted for uptrending Cr urine electrolytes and renal U/S ordered -09/15/2020 HD started s/p vascath placement -HD per nephrology -AM labs ordered - 24 hr fluid status: (+) 2626 Heme: Thrombocytopenia, elevated D-dimer -Leukopenia likely secondary to COVID-19 infection-resolved -Thrombocytopenia likely secondary to sepsis. 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 Heparin d/c, hit panel ordered. holding argatroban. -09/08 CTA chest shows no evidence of pulmonary embolism, multifocal airspace opacities with nodular densities and groundglass opacities in bilateral lungs, cholelithiasis, cholelithiasis -doppler BLE neg for DVT -Blood tinged sputum -Low dose heparin gtt -Trend CBC -> bloody secretions from ett today. -Transfuse for hemoglobin less than 7 ID: Sepsis, COVID-19 pneumonia, Acute hypoxemic respiratory failure, Acute respiratory distress syndrome, COVID-19 infection, Bilateral pneumonia, Elevated serum inflammatory markers to include D-dimer, ferritin and LDH, skin breakdown -Skin breakdown secondary to proning, WOCN consult, patient recommendations -Wound care per nursing -COVID-19 PCR (+) on 09/09 -Infectious disease consulted, appreciate recommendations -IV tocilizumab x1 -Dexamethasone 09/10 through 09/19 -Remdesivir 09/11 through 09/14 -Azithromycin 09/09 through 09/13, Rocephin 09/09 through 09/13 -Contact/droplet precaution -Trend COVID-19 inflammatory markers -on zinc and Vit C -ID started renally dosed cefepime/Vanco d/t increasing vasopresser use Endo: h/o DM; hyperglycemia; morbidly obese -Accu-Checks every 6hours -Avoid hypoglycemia -SSI -lantus scheduled, titrate as needed Disposition: ICU Full code Lines: A-line, IJ TLC, IJ Vascath The high probability of a clinically significant, sudden or life threatening deterioration of the [multi] system(s) required my full and direct attention, intervention and personal management. The aggregate critical care time was 90 minutes. This time is in addition to time spent performing reported procedures but includes the following: [x] Data Review and interpretation [x] Patient assessment and monitoring of vital signs [x] Documentation [x] Medication orders and management Disposition Plan: icu Total Time Spent with Patient (Minutes): 90 Total Time Spent with Patient (Minutes): 90 History Interval history: 09/10: Patient was intubated by ED physician and transferred to the ICU. 09/11: Infectious disease was consulted today, patient was placed on vasopressors due to hypotension despite receiving 1 L IV fluid, Lantus started, bilateral lower extremity Doppler ultrasound ordered, A-line and CVL placed. Late in the evening patient was exhibiting sinus bradycardia, EKG ordered along with stat CMP which showed NICOLASA. Stat ABG ordered which showed elevated PaO2 at 146 otherwise unremarkable on 100% FiO2. 09/12 bradycardia overnight requiring atropine x 1 and dopamine drip 09/13 tamia overnight 09/14 PRONED 16 H over the last day 09/16: Patient was proned overnight, per ID afebrile reculture and start cefepime and vancomycin, patient received hemodialysis today. Acidosis noted on ABG, vent changes per CCM and HD requested, 2 A of bicarb given. Has hyperkalemia today which has been treated. 09/17: again proned, slight hyperkalemia today. HD per nephro. Remains on sedation and vasopressor suppoprt which was increased with HD yesterday. 09/18: Temp 101.3 today, WBC remains elevated. Patient proned today. HD tx per nephrology .Removed 1.5 liters yesterday. Plt also 30K today. D/c heparin, hit p patria ordered. holding off on argatroban after discussion with head sugar reprocess operator. Patient may have pulmonary hemorrhage as bloody secretions being suctioned from ETT. Had extensive conversation with soham Bean on phone for over 40 minutes. Gave detailed explanation of patient clinical picture, vitals, labs, imaging reports, specialist input. Explained pathophysiology of coronavirus and how her mother has multiorgan failure. Furthermore updated her on patient's declining condition at this very moment. Explained that patient is very critical, saturating at 67%, HR 120's, and has a high chance of sudden tonight. Family understands. They would like patient to remain full code and medical team to continue to be aggressive. ICU care team and head sugar reprocess operator notified of conversation. Hospitalist Physical - Constitutional Vitals: Temp Pulse Resp BP Pulse Ox 98.4 F 124 H 31 H 166/68 74 L 09/18/20 16:00 09/18/20 17:15 09/18/20 17:15 09/18/20 17:15 09/18/20 17:15 General appearance: Present: no acute distress, well-nourished, obese HEART Score - HEART Score Troponin: Troponin T < 0.010 ng/mL (0.00-0.029) 09/09/20 00:39 Results - Labs CBC & Chem 7: 09/18/20 05:15 09/18/20 05:15 Labs: Laboratory Last Values WBC 20.4 K/mm3 (4.5-11.0) H 09/18/20 05:15 RBC 3.51 M/mm3 (3.65-5.03) L 09/18/20 05:15 Hgb 10.8 gm/dl (10.1-14.3) 09/18/20 05:15 Hct 33.6 % (30.3-42.9) 09/18/20 05:15 MCV 96 fl (79-97) 09/18/20 05:15 MCH 31 pg (28-32) 09/18/20 05:15 MCHC 32 % (30-34) 09/18/20 05:15 RDW 15.3 % (13.2-15.2) H 09/18/20 05:15 Plt Count 31 K/mm3 (140-440) L 09/18/20 05:15 Lymph % (Auto) 3.9 % (13.4-35.0) L 09/15/20 03:10 [place] % (Auto) 5.9 % (0.0-7.3) 09/15/20 03:10 Eos % (Auto) 0.2 % (0.0-4.3) 09/15/20 03:10 Baso % (Auto) 0.1 % (0.0-1.8) 09/15/20 03:10 Lymph # (Auto) 0.5 K/mm3 (1.2-5.4) L 09/15/20 03:10 [place] # (Auto) 0.8 K/mm3 (0.0-0.8) 09/15/20 03:10 Eos # (Auto) 0.0 K/mm3 (0.0-0.4) 09/15/20 03:10 Baso # (Auto) 0.0 K/mm3 (0.0-0.1) 09/15/20 03:10 Add Manual Diff Complete 09/12/20 17:17 Total Counted 100 09/12/20 17:17 Seg Neutrophils % 89.9 % (40.0-70.0) H 09/15/20 03:10 Seg Neuts % (Manual) 96.0 % (40.0-70.0) H 09/12/20 17:17 Lymphocytes % (Manual) 1.0 % (13.4-35.0) L 09/12/20 17:17 Monocytes % (Manual) 3.0 % (0.0-7.3) 09/12/20 17:17 Nucleated RBC % Not Reportable 09/12/20 17:17 Seg Neutrophils # 12.1 K/mm3 (1.8-7.7) H 09/15/20 03:10 Seg Neutrophils # Man 9.8 K/mm3 (1.8-7.7) H 09/12/20 17:17 Band Neutrophils # 0.0 K/mm3 09/12/20 17:17 Lymphocytes # (Manual) 0.1 K/mm3 (1.2-5.4) L 09/12/20 17:17 Abs React Lymphs (Man) 0.0 K/mm3 09/12/20 17:17 Monocytes # (Manual) 0.3 K/mm3 (0.0-0.8) 09/12/20 17:17 Eosinophils # (Manual) 0.0 K/mm3 (0.0-0.4) 09/12/20 17:17 Basophils # (Manual) 0.0 K/mm3 (0.0-0.1) 09/12/20 17:17 Metamyelocytes # 0.0 K/mm3 09/12/20 17:17 Myelocytes # 0.0 K/mm3 09/12/20 17:17 Promyelocytes # 0.0 K/mm3 09/12/20 17:17 Blast Cells # 0.0 K/mm3 09/12/20 17:17 WBC Morphology Not Reportable 09/12/20 17:17 Hypersegmented Neuts Not Reportable 09/12/20 17:17 Hyposegmented Neuts Not Reportable 09/12/20 17:17 Hypogranular Neuts Not Reportable 09/12/20 17:17 Smudge Cells Not Reportable 09/12/20 17:17 Toxic Granulation Not Reportable 09/12/20 17:17 Toxic Vacuolation Not Reportable 09/12/20 17:17 Dohle Bodies Not Reportable 09/12/20 17:17 Pelger-Huet Anomaly Not Reportable 09/12/20 17:17 Katrin Rods Not Reportable 09/12/20 17:17 Platelet Estimate Consistent w auto 09/12/20 17:17 Clumped Platelets Not Reportable 09/12/20 17:17 Plt Clumps, EDTA Not Reportable 09/12/20 17:17 Large Platelets Not Reportable 09/12/20 17:17 Giant Platelets Not Reportable 09/12/20 17:17 Platelet Satelliting Not Reportable 09/12/20 17:17 Plt Morphology Comment Not Reportable 09/12/20 17:17 RBC Morphology Normal 09/12/20 17:17 Dimorphic RBCs Not Reportable 09/12/20 17:17 Polychromasia Not Reportable 09/12/20 17:17 Hypochromasia Not Reportable 09/12/20 17:17 Poikilocytosis Not Reportable 09/12/20 17:17 Anisocytosis Not Reportable 09/12/20 17:17 Microcytosis Not Reportable 09/12/20 17:17 Macrocytosis Not Reportable 09/12/20 17:17 Spherocytes Not Reportable 09/12/20 17:17 Pappenheimer Bodies Not Reportable 09/12/20 17:17 Sickle Cells Not Reportable 09/12/20 17:17 Target Cells Not Reportable 09/12/20 17:17 Tear Drop Cells Not Reportable 09/12/20 17:17 Ovalocytes Not Reportable 09/12/20 17:17 Helmet Cells Not Reportable 09/12/20 17:17 Xiong-[place] Bodies Not Reportable 09/12/20 17:17 [place] Rings Not Reportable 09/12/20 17:17 Hugo Cells Not Reportable 09/12/20 17:17 Bite Cells Not Reportable 09/12/20 17:17 Crenated Cell Not Reportable 09/12/20 17:17 Elliptocytes Not Reportable 09/12/20 17:17 Acanthocytes (Spur) Not Reportable 09/12/20 17:17 Rouleaux Not Reportable 09/12/20 17:17 Hemoglobin C Crystals Not Reportable 09/12/20 17:17 Schistocytes Not Reportable 09/12/20 17:17 Malaria parasites Not Reportable 09/12/20 17:17 Hansel Bodies Not Reportable 09/12/20 17:17 Hem Pathologist Commnt No 09/12/20 17:17 PT 18.8 Sec. (12.2-14.9) H 09/15/20 14:00 INR 1.52 (0.87-1.13) H 09/15/20 14:00 APTT 32.7 Sec. (24.2-36.6) 09/15/20 14:00 D-Dimer > 47876 ng/mlDDU (0-234) H 09/17/20 04:52 Heparin Anti-Xa Level < 0.10 U.I./ml (0.3-0.7) L 09/18/20 10:53 ABG pH 7.200 (7.320-7.450) L 09/18/20 17:10 POC ABG pCO2 66.8 mmHg (32.0-48.0) H 09/18/20 17:10 POC ABG pO2 38.6 mmHg (83-108) L 09/18/20 17:10 POC ABG HCO3 25.5 09/18/20 17:10 ABG O2 Saturation 69.2 (0-100) 09/18/20 17:10 POC ABG Base Excess -4.4 09/18/20 17:10 ABG Hemoglobin 17.5 (12.0-17.5) 09/18/20 17:10 ABG Oxyhemoglobin 68.0 (94-98) L 09/18/20 17:10 ABG Methemoglobin 0.3 (0.0-1.5) 09/18/20 17:10 ABG Sodium 136.3 mmol/L (136.0-145.0) 09/18/20 17:10 ABG Potassium 4.9 mmol/L (3.40-4.50) H 09/18/20 17:10 ABG Chloride 100.0 mmol/L (98-107) 09/18/20 17:10 ABG Glucose 266 mg/dL (65-95) H 09/18/20 17:10 Carboxyhemoglobin 1.5 (0.5-1.5) 09/18/20 17:10 FiO2 % 100.0 09/18/20 17:10 Sodium 135 mmol/L (137-145) L 09/18/20 05:15 Potassium 4.9 mmol/L (3.6-5.0) 09/18/20 05:15 Chloride 99.1 mmol/L (98-107) 09/18/20 05:15 Carbon Dioxide 22 mmol/L (22-30) 09/18/20 05:15 Anion Gap 19 mmol/L 09/18/20 05:15 BUN 57 mg/dL (7-17) H 09/18/20 05:15 Creatinine 4.1 mg/dL (0.6-1.2) H 09/18/20 05:15 Estimated GFR 13 ml/min 09/18/20 05:15 BUN/Creatinine Ratio 14 % 09/18/20 05:15 Glucose 228 mg/dL (65-100) H 09/18/20 05:15 POC Glucose 238 mg/dL (70-105) H 09/18/20 11:35 Osmolality 329 Mosm/kg 09/12/20 17:17 Lactic Acid 1.90 mmol/L (0.7-2.0) 09/12/20 17:17 Calcium 7.5 mg/dL (8.4-10.2) L 09/18/20 05:15 Phosphorus 5.20 mg/dL (2.5-4.5) H 09/18/20 05:15 Magnesium 2.00 mg/dL (1.7-2.3) 09/18/20 05:15 Ferritin 1323.0 ng/mL (10.0-200.0) H 09/17/20 04:52 Total Bilirubin 0.20 mg/dL (0.1-1.2) 09/16/20 04:20 AST 46 units/L (5-40) H 09/16/20 04:20 ALT 27 units/L (7-56) 09/16/20 04:20 Alkaline Phosphatase 112 units/L (35-129) 09/16/20 04:20 Lactate Dehydrogenase 729 units/L (91-180) H 09/17/20 04:52 Troponin T < 0.010 ng/mL (0.00-0.029) 09/09/20 00:39 C-Reactive Protein 5.30 mg/dL (0.00-1.30) H 09/17/20 04:52 NT-Pro-B Natriuret Pep 503.6 pg/mL (0-900) 09/08/20 17:37 Total Protein 6.2 g/dL (6.3-8.2) L 09/16/20 04:20 Albumin 2.9 g/dL (3.9-5) L 09/16/20 04:20 Albumin/Globulin Ratio 0.9 % 09/16/20 04:20 Lipase 47 units/L (13-60) 09/08/20 17:37 Procalcitonin 0.74 ng/mL (<0.15) 09/15/20 03:10 TSH 0.067 mlU/mL (0.270-4.200) L 09/12/20 17:17 Arterial Blood Glucose 266 mg/dL (65-95) H 09/18/20 17:10 Arterial Blood Ionized Calcium 4.6 mg/dL (4.6-5.3) 09/18/20 17:10 Urine Color Yellow (Yellow) 09/12/20 13:30 Urine Turbidity Clear (Clear) 09/12/20 13:30 Urine pH 5.0 (5.0-7.0) 09/12/20 13:30 Ur Specific Umpire 1.011 (1.003-1.030) 09/12/20 13:30 Urine Protein 100 mg/dl mg/dL (Negative) 09/12/20 13:30 Urine Glucose (UA) 50 mg/dL (Negative) 09/12/20 13:30 Urine Ketones Neg mg/dL (Negative) 09/12/20 13:30 Urine Blood Lg (Negative) 09/12/20 13:30 Urine Nitrite Neg (Negative) 09/12/20 13:30 Urine Bilirubin Neg (Negative) 09/12/20 13:30 Urine Urobilinogen < 2.0 mg/dL (<2.0) 09/12/20 13:30 Ur Leukocyte Esterase Neg (Negative) 09/12/20 13:30 Urine WBC (Auto) 2.0 /HPF (0.0-6.0) 09/12/20 13:30 Urine RBC (Auto) 47.0 /HPF (0.0-6.0) 09/12/20 13:30 U Epithel Cells (Auto) 2.0 /HPF (0-13.0) 09/08/20 22:24 Urine Bacteria (Auto) 1+ /HPF (Negative) 09/12/20 13:30 Urine Mucus Few /HPF 09/12/20 13:30 Urine Osmolality 340 Mosm/kg 09/12/20 13:30 Urine Creatinine 43.2 mg/dL (0.1-20.0) H 09/12/20 13:30 Urine Sodium 58 mmol/L 09/12/20 13:30 Urine Urea Nitrogen 479 09/12/20 13:30 Urine Opiates Screen Presumptive negative 09/08/20 22:24 Urine Methadone Screen Presumptive negative 09/08/20 22:24 Ur Barbiturates Screen Presumptive negative 09/08/20 22:24 Ur Phencyclidine Scrn Presumptive negative 09/08/20 22:24 Ur Amphetamines Screen Presumptive negative 09/08/20 22:24 U Benzodiazepines Scrn Presumptive negative 09/08/20 22:24 Urine Cocaine Screen Presumptive negative 09/08/20 22:24 U Marijuana (THC) Screen Presumptive negative 09/08/20 22:24 Drugs of Abuse Note Disclamer 09/08/20 22:24 Coronavirus (PCR) Positive (Negative) A 09/09/20 09:00 Hepatitis A IgM Ab Non-reactive (NonReactive) 09/15/20 13:25 Hep Bs Antigen Non-reactive (Negative) 09/15/20 13:25 Hep B Core IgM Ab Non-reactive (NonReactive) 09/15/20 13:25 Hepatitis C Antibody Non-reactive (NonReactive) 09/15/20 13:25 Microbiology: Microbiology 09/17/20 16:27 Peripheral/Venous Blood Culture - Preliminary NO GROWTH AFTER 24 HOURS 09/17/20 16:27 Peripheral/Venous Blood Culture - Preliminary Begum/IV: Voiding Method Indwelling Catheter Active Medications - Current Medications Current Medications: Generic Name Dose Route Start Last Admin Trade Name Freq PRN Reason Stop Dose Admin Acetaminophen 650 mg 09/08/20 20:23 Acetaminophen 325 Mg Tab PO Q4H PRN Pain MILD(1-3)/Fever >100.5/CORTEZ Albuterol 2.5 mg 09/08/20 20:23 Albuterol 2.5 Mg/3 Ml Nebu IH Q4HRT PRN Shortness Of Breath Albuterol/Ipratropium 1 ampul 09/13/20 12:30 09/18/20 13:18 Ipratropium/Albuterol Sulfate 3 Ml Ampul.Neb IH 1 ampul BID ISIAH Administration Lipase/Protease/Amylase 1 each 09/11/20 11:45 Lipase 10,500/Protease 25,000/Amylase 43,750 (Units) Dr Issa FEEDTUBE PRN PRN For Clogged Feeding Tube Ascorbic Acid 500 mg 09/08/20 22:00 09/18/20 09:44 Ascorbic Acid 500 Mg Tab PO 500 mg BID ISIAH Administration Cholecalciferol 1,000 unit 09/09/20 10:00 09/18/20 09:44 Cholecalciferol (Vit D3) 1000 Unit (25 Mcg) Tab PO 1,000 unit QDAY ISIAH Administration Dexamethasone 8 mg 09/10/20 17:00 09/18/20 09:44 Dexamethasone 4 Mg/Ml Vial IV 09/19/20 10:01 8 mg DAILY ISIAH Administration Famotidine 10 mg 09/14/20 22:00 09/18/20 09:44 Famotidine 20 Mg/2 Ml Inj IV 10 mg BID ISIAH Administration Fentanyl 50 mcg 09/13/20 12:12 Fentanyl 100 Mcg/2 Ml Inj IV Q10MIN PRN ANALGESIA Guaifenesin 10 ml 09/09/20 16:01 09/10/20 05:14 Guaifenesin Dm 200/20 Mg Oral Liqd 10 Ml PO 10 ml Q4H PRN Administration Cough Hydralazine HCl 10 mg 09/11/20 21:33 Hydralazine 20 Mg/1 Ml Inj IV Q4H PRN Hypertension Fentanyl Citrate 2,000 mcg in 100 mls @ 7.45 mls/hr 09/10/20 23:00 09/18/20 16:00 Fentanyl Drip Premix IV 4 mcg/kg/hr TITR ISIAH 29.8 mls/hr Administration Protocol 1 MCG/KG/HR Norepinephrine 4 mg in 250 mls @ 7.5 mls/hr 09/11/20 17:00 09/18/20 16:00 Levophed Drip 4 Mg/Ns 250 Ml IV 0 mcg/min TITR ISIAH 0 mls/hr Titration Protocol 2 MCG/MIN Vasopressin 20 unit/ Sodium 101 mls @ 9.09 mls/hr 09/11/20 22:00 09/18/20 11:59 Chloride IV 0.03 units/min TITR ISIAH 9.09 mls/hr Administration Protocol 0.03 UNITS/MIN Midazolam HCl 100 mg/ Sodium 100 mls @ 1 mls/hr 09/12/20 17:30 09/18/20 07:43 Chloride IV 5 mg/hr TITR ISIAH 5 mls/hr Administration Protocol 1 MG/HR Propofol 1,000 mg in 100 mls @ 4.47 mls/hr 09/13/20 13:00 09/18/20 16:30 Diprivan 10 Mg/Ml IV 10 mcg/kg/min TITR ISIAH 8.94 mls/hr Titration Protocol 5 MCG/KG/MIN Sodium Chloride 1,000 mls @ 110 mls/hr 09/15/20 05:30 Nacl 0.9% 1000 Ml IV DIRECT ISIAH Dopamine HCl/Dextrose 800 mg in 250 mls @ 5.588 mls/hr 09/15/20 21:04 09/18/20 16:28 Intropin Drip 800 Mg/D5w 250 Ml IV 4 mcg/kg/min TITR ISIAH 11.175 mls/hr Titration Protocol 2 MCG/KG/MIN Sodium Chloride 100 mls @ 999 mls/hr 09/16/20 10:30 Nacl 0.9% IV NABEEL PRN Hypotension Sodium Chloride 100 mls @ 999 mls/hr 09/17/20 14:30 Nacl 0.9% IV NABEEL PRN Hypotension Sodium Chloride 100 mls @ 999 mls/hr 09/17/20 15:04 Nacl 0.9% IV NABEEL PRN Hypotension Cefepime HCl 1 gm in 100 mls @ 200 mls/hr 09/18/20 20:00 Cefepime/Ns 1 Gm/100 Ml IV QPM [facility] Protocol Fluconazole 200 mg in 100 mls @ 100 mls/hr 09/18/20 14:00 09/18/20 14:37 Diflucan IV 100 mls/hr Q24H ISIAH Administration Insulin Glargine 20 units 09/16/20 11:00 09/18/20 08:31 Insulin Glargine 100 Units/Ml SUB-Q 20 units QAMDIAB ISIAH Administration Insulin Human Lispro 0 unit 09/11/20 12:00 09/18/20 11:52 Insulin Lispro 100 Unit/Ml SUB-Q 4 unit Q6HR [facility] Administration Protocol Midazolam HCl 2 mg 09/12/20 17:30 09/13/20 12:05 Midazolam 2 Mg/2 Ml Inj IV 2 mg Q10MIN PRN Administration Sedation Simple Syrup 15 ml 09/11/20 11:45 Simple Syrup 15 Ml FEEDTUBE PRN PRN Hypoglycemia Simple Syrup 30 ml 09/11/20 11:45 Simple Syrup 15 Ml FEEDTUBE PRN PRN Hypoglycemia Sodium Bicarbonate 325 mg 09/11/20 11:45 Sodium Bicarbonate 325 Mg Tab FEEDTUBE PRN PRN For Clogged Feeding Tube Sodium Chloride 10 ml 09/08/20 22:00 08/02/21 09:45 Sodium Chloride 0.9% 10 Ml Flush Syringe IV 10 ml BID ISIAH Administration Sodium Chloride 10 ml 09/08/20 20:23 Sodium Chloride 0.9% 10 Ml Flush Syringe IV PRN PRN LINE FLUSH Zinc Sulfate 220 mg 09/08/20 22:00 09/18/20 09:44 Zinc Sulfate 220 Mg Cap PO 220 mg BID ISIAH Administration Nutrition/Malnutrition Assess - Dietary Evaluation Nutrition/Malnutrition Findings: Nutrition Notes Start: 09/11/20 11:37 Freq: Status: Active Protocol: Document 09/18/20 12:25 (Rec: 09/18/20 12:29 [email or web address]) Nutrition Notes Initial or Follow up Reassessment Current Diagnosis Acute Kidney Injury, Respiratory Failure Other Pertinent Diagnosis pneu, COVID Current Diet Nepro 1.8 at 40 ml/hr Labs/Tests BG POC 238 Na 135 Phos 5.2 Pertinent Medications Vasopressin Decadron Height 5 ft 8 in Weight 149 kg [place] Body Weight (kg) 63.63 BMI 49.9 Weight Status Morbidly Obese Subjective/Other Information Pt proned this AM and TF at 20 ml/hr. Percent of energy/protein needs met: 48%/25% Burn Absent Trauma Absent Current % PO Negligible Minimum of two criteria No physical signs of malnutrition #1 Nutrition Diagnosis Inadequate oral intake Diagnosis Progress(for reassessment Continues documentation) Is patient on ventilator? Yes Is Patient Ambulatory and/or Out of Bed No REE-([facility]-confined to bed) 2457.420 Kcal/Kg value to use for calculation 12 Approximate Energy Requirements Using 1788 kcal/Kg Calculation Used for Recommendations Kcal/kg Additional Notes Protein: up to 2.5g/kg IBW (up to 159g) Fluid: 1 ml/kcal or per Nutrition Intervention Change Diet Order: Continue Nutrition Support: 16 Hr Prone: For 16h proned - Nepro 1.8 at 20 ml/hr Flush 50 ml q4h For 8 h supine - Nepro 1.8 at 80 ml/hr (or as tolerated). Flush 250 q4h When finished proning: Nepro 1 .8 at 40 ml/hr Flush 175 ml q4h or per MD Kcal 1,728 Protein (gm) 78 Fluid (mL) 698 Goal #1 Meet at least 75% of protein and energy needs via TF Anticipated Discharge Needs: Unable to determine at this time Follow-Up By: 09/21/20 Additional Comments FU for TF tolerance and proning
--- NOTE | 2020-09-18 17:53 | XRay Report ---
CHEST 1 VIEW 09/18/2020 4:28 PM INDICATION / CLINICAL INFORMATION: Hypoxia. COVID positive. COMPARISON: Yesterday. FINDINGS: SUPPORT DEVICES: The positions of the endotracheal tube, nasogastric tube and bilateral jugular centr al venous catheters have not changed. HEART / MEDIASTINUM: Unchanged. LUNGS / PLEURA: There is severe diffuse bilateral parenchymal disease, significantly increased. No la rge pleural effusion. No pneumothorax. ADDITIONAL FINDINGS: No significant additional findings. IMPRESSION: Severe diffuse bilateral parenchymal disease has increased. Signer Name: Eh Mercer MD Signed: 09/18/2020 5:49 PM Workstation Name: [id number]
[2020-09-18] MEDS: CEFEPIME/NS 1 GM/100 ML 1 GM/100 ML BAG IV SCH (22:03)
[2020-09-19] MEDS: NORepinephrine/NS 4 MG-250 ML 4 MG/250 ML BAG IV SCH ×4 (00:29→16:16)
[2020-09-19] MEDS: MIDAZOLAM 100 MG in SODIUM CHLORIDE 0.9% 80 ML IV SCH (03:27)
[2020-09-19] MEDS: fentaNYL DRIP Premix 2,000 MCG/100 ML BAG IV SCH ×5 (04:50→22:12)
[2020-09-19] MEDS: INSULIN LISPRO 100 UNIT/ML SUB-Q SCH ×3 (05:44→18:18)
[2020-09-19 06:10] LABS: Hematocrit 34.6 % (30.3-42.9); Hemoglobin 11.3 gm/dl (10.1-14.3)
[2020-09-19 06:17] LABS: C-Reactive Protein 9.2 mg/dL (0.00-1.30)
[2020-09-19] MEDS: INSULIN GLARGINE 100 UNITS/ML SUB-Q SCH ×2 (08:58→22:11)
[2020-09-19] MEDS: CHOLECALCIFEROL (VIT D3) 1000 UNIT (25 mcg) TAB PO SCH (08:59)
[2020-09-19] MEDS: FAMOTIDINE 20 MG/2 ML INJ IV SCH ×2 (08:59→22:11)
[2020-09-19] MEDS: ZINC SULFATE 220 MG CAP PO SCH ×2 (08:59→22:11)
[2020-09-19] MEDS: ASCORBIC ACID 500 MG TAB PO SCH ×2 (09:41→22:11)
[2020-09-19] MEDS: dexAMETHasone 4 MG/ML VIAL IV SCH (09:42)
[2020-09-19] MEDS ORDERED: VANCOMYCIN/NS 1 GM/250 ML 1 GM/250 ML BAG IV ONE (10:00)
[2020-09-19] MEDS: IPRATROPIUM/ALBUTEROL SULFATE 3 ML AMPUL.NEB IH SCH ×2 (10:13→23:08)
--- NOTE | 2020-09-19 10:24 | Progress Note ---
Assessment and Plan Impression * Oliguric acute kidney injury secondary to ATN * Acute hypoxic/hypercapnic respirtaory failure secondary to COVID 19 PNA * COVID 19 PNA * Sepsis * Hyperkalemia * Azotemia * Respiratory acidosis * Type II DM Plan: * Patient is s/p HD on Friday, Friday, Friday (1 liter removed each treatment) as patient continuing to require significant vent support * HD yesterday with 1.5L UF * Hold HD today as she is tachycardic with HR >120, attempt HD/UF tomorrow if stable as she remains with volume * UF as tolerated * Dose medications for renal function * Vent management per CCM * ID following * Pressors prn to maintain MAP >65 * AM labs Subjective Date of service: 09/19/20 Principal diagnosis: Ac hypoxemic resp failure; ARDS; COVID-19 infxn; PNA; DM II; Obesity Interval history: Intermittent proning noted, not in prone positioning this AM. Remains ventilated - FiO2 95%, PEEP 20, TV 450, Rate 30. On Vasopressin Objective - Exam Narrative Exam: General appearance: ill appearing, intubated, prone positioning EENT: ATNC, other (ETT in place) Respiratory: Present: Other (coarse BS) Cardiology: regular, S1S2 Gastrointestinal: normal Integumentary: no rash, warm and dry Neurologic: other (sedated) - Vital Signs Vital signs: Vital Signs - 12hr 09/18/20 09/18/20 09/18/20 22:30 22:45 23:00 Temperature 99.1 F Pulse Rate 130 H 120 H 120 H Respiratory 30 H 30 H 28 H Rate Blood Pressure 110/24 127/84 119/77 O2 Sat by Pulse 88 90 81 L Oximetry O2 Sat by Pulse 92 Oximetry [ Anterior Bilateral Throughout] 09/18/20 09/18/20 09/18/20 23:15 23:30 23:45 Temperature Pulse Rate 112 H 119 H 120 H Respiratory 26 H 31 H 30 H Rate Blood Pressure 126/58 126/58 122/71 O2 Sat by Pulse 84 90 87 Oximetry O2 Sat by Pulse Oximetry [ Anterior Bilateral Throughout] 09/18/20 09/19/20 09/19/20 23:56 00:00 00:06 Temperature 98.8 F Pulse Rate 120 H 121 H 120 H Respiratory 30 H 27 H Rate Blood Pressure 122/71 143/74 122/71 O2 Sat by Pulse 91 90 90 Oximetry O2 Sat by Pulse Oximetry [ Anterior Bilateral Throughout] 09/19/20 09/19/20 09/19/20 00:16 00:30 00:45 Temperature Pulse Rate 111 H 123 H 121 H Respiratory 23 25 H 30 H Rate Blood Pressure 61/30 120/68 173/78 O2 Sat by Pulse 98 92 91 Oximetry O2 Sat by Pulse Oximetry [ Anterior Bilateral Throughout] 09/19/20 09/19/20 09/19/20 01:00 01:15 01:30 Temperature Pulse Rate 122 H 123 H 128 H Respiratory 29 H 30 H 28 H Rate Blood Pressure 165/78 166/80 166/80 O2 Sat by Pulse 90 91 90 Oximetry O2 Sat by Pulse Oximetry [ Anterior Bilateral Throughout] 09/19/20 09/19/20 09/19/20 01:46 02:00 02:15 Temperature Pulse Rate 94 H 103 H 96 H Respiratory 18 26 H 31 H Rate Blood Pressure 56/26 57/30 61/30 O2 Sat by Pulse 95 97 Oximetry O2 Sat by Pulse Oximetry [ Anterior Bilateral Throughout] 09/19/20 09/19/20 09/19/20 02:30 02:45 03:00 Temperature Pulse Rate 121 H 118 H 113 H Respiratory 31 H 28 H 25 H Rate Blood Pressure 144/71 160/74 160/74 O2 Sat by Pulse 93 95 95 Oximetry O2 Sat by Pulse Oximetry [ Anterior Bilateral Throughout] 09/19/20 09/19/20 09/19/20 03:15 03:30 03:46 Temperature Pulse Rate 116 H 115 H 116 H Respiratory 24 22 28 H Rate Blood Pressure 72/35 80/37 80/37 O2 Sat by Pulse 97 100 98 Oximetry O2 Sat by Pulse Oximetry [ Anterior Bilateral Throughout] 09/19/20 09/19/20 09/19/20 03:58 04:00 04:14 Temperature 100.8 F H Pulse Rate 120 H 120 H Respiratory 25 H Rate Blood Pressure 119/63 119/63 O2 Sat by Pulse 97 98 Oximetry O2 Sat by Pulse Oximetry [ Anterior Bilateral Throughout] 09/19/20 09/19/20 09/19/20 04:16 04:30 04:45 Temperature Pulse Rate 118 H 128 H 130 H Respiratory 28 H 30 H 31 H Rate Blood Pressure 118/58 78/40 85/44 O2 Sat by Pulse 96 100 99 Oximetry O2 Sat by Pulse Oximetry [ Anterior Bilateral Throughout] 09/19/20 09/19/20 09/19/20 05:00 05:15 05:30 Temperature Pulse Rate 119 H 120 H 121 H Respiratory 26 H 30 H 28 H Rate Blood Pressure 125/64 100/52 103/57 O2 Sat by Pulse 98 98 100 Oximetry O2 Sat by Pulse Oximetry [ Anterior Bilateral Throughout] 09/19/20 09/19/20 09/19/20 05:45 06:00 06:15 Temperature Pulse Rate 122 H 121 H 122 H Respiratory 26 H 27 H 27 H Rate Blood Pressure 103/58 112/58 113/60 O2 Sat by Pulse 99 100 100 Oximetry O2 Sat by Pulse Oximetry [ Anterior Bilateral Throughout] 09/19/20 09/19/20 09/19/20 06:30 06:46 07:00 Temperature 102.3 F H Pulse Rate 122 H 133 H Respiratory 27 H 30 H Rate Blood Pressure 112/60 81/43 O2 Sat by Pulse 100 100 Oximetry O2 Sat by Pulse Oximetry [ Anterior Bilateral Throughout] 09/19/20 07:50 Temperature Pulse Rate 125 H Respiratory Rate Blood Pressure 89/52 O2 Sat by Pulse 99 Oximetry O2 Sat by Pulse Oximetry [ Anterior Bilateral Throughout] - Lab 09/19/20 05:12 09/18/20 05:15 Most recent lab results ABG pH 7.151 (7.320-7.450) L 09/19/20 02:53 ABG O2 Saturation 95.3 (0-100) 09/19/20 02:53 Calcium 7.5 mg/dL (8.4-10.2) L 09/18/20 05:15 Phosphorus 5.20 mg/dL (2.5-4.5) H 09/18/20 05:15 Magnesium 2.00 mg/dL (1.7-2.3) 09/18/20 05:15 Urine Creatinine 43.2 mg/dL (0.1-20.0) H 09/12/20 13:30 Urine Sodium 58 mmol/L 09/12/20 13:30 Medications & Allergies - Medications Allergies/Adverse Reactions: Allergies lisinopril Allergy (Severe, Verified 09/08/20 16:33) Angioedema Home Medications: Home Medications Medication Instructions Recorded Confirmed Last Taken Type Losartan 100 mg PO DAILY 09/09/20 09/09/20 09/08/20 08:00 History Metformin HCl 500 mg PO BID 09/09/20 09/09/20 09/08/20 History 500 carvediloL 3.125 mg PO BID 09/09/20 09/09/20 09/08/20 History glipiZIDE 10 mg PO AC 09/09/20 09/09/20 09/08/20 08:00 History Active Medications: Generic Name Dose Route Start Last Admin Trade Name Freq PRN Reason Stop Dose Admin Acetaminophen 650 mg 09/08/20 20:23 Acetaminophen 325 Mg Tab PO Q4H PRN Pain MILD(1-3)/Fever >100.5/CORTEZ Albuterol 2.5 mg 09/08/20 20:23 Albuterol 2.5 Mg/3 Ml Nebu IH Q4HRT PRN Shortness Of Breath Albuterol/Ipratropium 1 ampul 09/13/20 12:30 09/19/20 10:13 Ipratropium/Albuterol Sulfate 3 Ml Ampul.Neb IH Not Given BID ISIAH Lipase/Protease/Amylase 1 each 09/11/20 11:45 Lipase 10,500/Protease 25,000/Amylase 43,750 (Units) Dr Issa FEEDTUBE PRN PRN For Clogged Feeding Tube Ascorbic Acid 500 mg 09/08/20 22:00 09/19/20 09:41 Ascorbic Acid 500 Mg Tab PO 500 mg BID ISIAH Administration Cholecalciferol 1,000 unit 09/09/20 10:00 09/19/20 08:59 Cholecalciferol (Vit D3) 1000 Unit (25 Mcg) Tab PO 1,000 unit QDAY ISIAH Administration Famotidine 10 mg 09/14/20 22:00 09/19/20 08:59 Famotidine 20 Mg/2 Ml Inj IV 10 mg BID ISIAH Administration Fentanyl 50 mcg 09/13/20 12:12 Fentanyl 100 Mcg/2 Ml Inj IV Q10MIN PRN ANALGESIA Guaifenesin 10 ml 09/09/20 16:01 09/10/20 05:14 Guaifenesin Dm 200/20 Mg Oral Liqd 10 Ml PO 10 ml Q4H PRN Administration Cough Hydralazine HCl 10 mg 09/11/20 21:33 Hydralazine 20 Mg/1 Ml Inj IV Q4H PRN Hypertension Fentanyl Citrate 2,000 mcg in 100 mls @ 7.45 mls/hr 09/10/20 23:00 09/19/20 07:51 Fentanyl Drip Premix IV 4 mcg/kg/hr TITR ISIAH 29.8 mls/hr Administration Protocol 1 MCG/KG/HR Norepinephrine 4 mg in 250 mls @ 7.5 mls/hr 09/11/20 17:00 09/19/20 08:15 Levophed Drip 4 Mg/Ns 250 Ml IV 12 mcg/min TITR ISIAH 45 mls/hr Titration Protocol 2 MCG/MIN Vasopressin 20 unit/ Sodium 101 mls @ 9.09 mls/hr 09/11/20 22:00 09/18/20 23:44 Chloride IV 0.03 units/min TITR ISIAH 9.09 mls/hr Administration Protocol 0.03 UNITS/MIN Midazolam HCl 100 mg/ Sodium 100 mls @ 1 mls/hr 09/12/20 17:30 09/19/20 04:10 Chloride IV 4 mg/hr TITR ISIHA 4 mls/hr Titration Protocol 1 MG/HR Propofol 1,000 mg in 100 mls @ 4.47 mls/hr 09/13/20 13:00 09/19/20 02:24 Diprivan 10 Mg/Ml IV 0 mcg/kg/min TITR ISIAH 0 mls/hr Titration Protocol 5 MCG/KG/MIN Sodium Chloride 1,000 mls @ 110 mls/hr 09/15/20 05:30 Nacl 0.9% 1000 Ml IV DIRECT ISIAH Dopamine HCl/Dextrose 800 mg in 250 mls @ 5.588 mls/hr 09/15/20 21:04 09/18/20 16:28 Intropin Drip 800 Mg/D5w 250 Ml IV 4 mcg/kg/min TITR ISIAH 11.175 mls/hr Titration Protocol 2 MCG/KG/MIN Sodium Chloride 100 mls @ 999 mls/hr 09/17/20 15:04 Nacl 0.9% IV NABEEL PRN Hypotension Cefepime HCl 1 gm in 100 mls @ 200 mls/hr 09/18/20 20:00 09/18/20 22:03 Cefepime/Ns 1 Gm/100 Ml IV 200 mls/hr QPM ISIAH Administration Protocol Fluconazole 200 mg in 100 mls @ 100 mls/hr 09/18/20 14:00 09/18/20 14:37 Diflucan IV 100 mls/hr Q24H ISIAH Administration Vancomycin HCl 1 gm in 250 mls @ 167.007 mls/hr 09/19/20 10:00 09/19/20 08:59 Vancomycin/Ns 1 Gm/250 Ml IV 09/19/20 11:29 167.007 mls/hr ONCE ONE Administration Insulin Glargine 20 units 09/16/20 11:00 09/19/20 08:58 Insulin Glargine 100 Units/Ml SUB-Q 20 units QAMDIAB ISIAH Administration Insulin Glargine 10 units 09/19/20 22:00 Insulin Glargine 100 Units/Ml SUB-Q QHS ISIAH Insulin Human Lispro 0 unit 09/11/20 12:00 09/19/20 05:44 Insulin Lispro 100 Unit/Ml SUB-Q 4 unit Q6HR ISIAH Administration Protocol Midazolam HCl 2 mg 09/12/20 17:30 09/13/20 12:05 Midazolam 2 Mg/2 Ml Inj IV 2 mg Q10MIN PRN Administration Sedation Simple Syrup 15 ml 09/11/20 11:45 Simple Syrup 15 Ml FEEDTUBE PRN PRN Hypoglycemia Simple Syrup 30 ml 09/11/20 11:45 Simple Syrup 15 Ml FEEDTUBE PRN PRN Hypoglycemia Sodium Bicarbonate 325 mg 09/11/20 11:45 Sodium Bicarbonate 325 Mg Tab FEEDTUBE PRN PRN For Clogged Feeding Tube Sodium Chloride 10 ml 09/08/20 22:00 09/19/20 08:59 Sodium Chloride 0.9% 10 Ml Flush Syringe IV 10 ml BID ISIAH Administration Sodium Chloride 10 ml 09/08/20 20:23 Sodium Chloride 0.9% 10 Ml Flush Syringe IV PRN PRN LINE FLUSH Zinc Sulfate 220 mg 09/08/20 22:00 09/19/20 08:59 Zinc Sulfate 220 Mg Cap PO 220 mg BID ISIAH Administration
--- NOTE | 2020-09-19 11:31 | Progress Note ---
Assessment and Plan Acute hypoxemic respiratory failure Acute respiratory distress syndrome COVID-19 infection Bilateral pneumonia Diabetes Hypertension Obesity Leukopenia Elevated serum inflammatory markers to include D-dimer, ferritin and LDH (Had a long talk with her daughter Vikas about the gravity of her situation explaining that i actually thought we might loose her yesterday. I explained the care plan and answered her questions and finally offered a little glimmer of the hope i feel with her FiO2 now down to 90%. I did also stress the likelyhood of significant toxic-Metabolic & in particular anoxic encephalopathy) - send stat CBC, BMP and address - no dialysis planned today re: hemodynamics - begin Reglan 5 mg IV q8h re: high residuals - reduce tube feeds to 10 ml's/hr - follow HIT assay - hold proning today re: risk of decompensation and especially at time of un- proning which has been met with severe worsening of hypoxemia; also she is showing improvement with avoidance of supine position as much as possible - continue care as below otherwise; - continue HD/UF for toxin and volume clearance - repeat CBC in am re: thrombocytopenia - continue to wean vasopressors for target MAP > 65 mmHg - continue chacon catheter for strict I's & O's - continue Daily SAT and SBT assessment as tolerated - continue to wean supplemental oxygen for target O2 sat's > 90% acutely - VAP bundle addressed - continue lung protective strategies - continue bronchodilators with pulmonary hygiene per RT - wean per pulmonary driven protocols otherwise - avoid nephrotoxins, renally dose all medications - continue accuchecks with glycemic control per SSI (While critically ill target blood glucose of 140-180 mg/dL; avoid hypoglycemia) - sedation prn for target RASS 0 to -1 - continue to avoid benzodiazepine's, reduce the possibility of delirium - complete AB's per ID rec's - prn analgesia per CPOT score - Maintenance of sleep-wake cycle, avoid delirium - continue enteral nutritional support at goal rate as tolerated - G.I. & VTE prophylaxis - PT/OT/ROM exercises - continue mobility protocols for pressure ulcer prophylaxis - Monitor hemodynamics closely - continue other care per attending / other consultants - discharge planning ongoing concurrently COVID SPECIFIC INTERVENTIONS - Remdesivir as per ID/Pulmonary developed protocols (ordered) - to receive Actemra - continue systemic steroids for severe COVID-19 infection empirically - follow repeat COVID tests results - zinc and vitamin C supplementation - Monitor inflammatory markers per facility protocol - ferritin, Ddimer, CRP - therapeutic anticoagulation per system Protocol based on d-dimer and clinical considerations - Continue contact and airborne isolation .... Re-evaluate in am & prn CONDITION: CRITICAL PROGNOSIS: GUARDED CODE STATUS: FULL CODE The high probability of a clinically significant, sudden or life-threatening deterioration of the [respiratory, cardiovascular & neurologic] system(s) required my full and direct attention, intervention and personal management. The aggregate critical care time was [45] minutes without overlap. Time includes spent on; [x] Data Review and interpretation [x] Patient assessment and monitoring of vital signs [x] Documentation [x] Medication orders and management Subjective Date of service: 09/19/20 Principal diagnosis: Ac hypoxemic resp failure; ARDS; COVID-19 infxn; PNA; DM II; Obesity Interval history: Patient is seen today for: Ac hypoxemic resp failure; ARDS; COVID-19 infxn; PNA; DM II; Obesity Seen and examined at bedside; 24hour events reviewed; nursing and respiratory care staff consulted; no adverse overnight events reported to me; resting in bed; remains on MVS; oxygenation has improved but still hemodynamically unstable and with tachycardia; remains on vasopressors; not tolerating tube feeds well; no emesis or overt aspiration and no gross bleeding Objective Vital Signs - 12hr 09/18/20 09/18/20 09/19/20 23:45 23:56 00:00 Temperature 98.8 F Pulse Rate 120 H 120 H 121 H Respiratory 30 H 30 H 27 H Rate Blood Pressure 122/71 122/71 143/74 O2 Sat by Pulse 87 91 90 Oximetry 09/19/20 09/19/20 09/19/20 00:06 00:16 00:30 Temperature Pulse Rate 120 H 111 H 123 H Respiratory 23 25 H Rate Blood Pressure 122/71 61/30 120/68 O2 Sat by Pulse 90 98 92 Oximetry 09/19/20 09/19/20 09/19/20 00:45 01:00 01:15 Temperature Pulse Rate 121 H 122 H 123 H Respiratory 30 H 29 H 30 H Rate Blood Pressure 173/78 165/78 166/80 O2 Sat by Pulse 91 90 91 Oximetry 09/19/20 09/19/20 09/19/20 01:30 01:46 02:00 Temperature Pulse Rate 128 H 94 H 103 H Respiratory 28 H 18 26 H Rate Blood Pressure 166/80 56/26 57/30 O2 Sat by Pulse 90 95 Oximetry 09/19/20 09/19/20 09/19/20 02:15 02:30 02:45 Temperature Pulse Rate 96 H 121 H 118 H Respiratory 31 H 31 H 28 H Rate Blood Pressure 61/30 144/71 160/74 O2 Sat by Pulse 97 93 95 Oximetry 09/19/20 09/19/20 09/19/20 03:00 03:15 03:30 Temperature Pulse Rate 113 H 116 H 115 H Respiratory 25 H 24 22 Rate Blood Pressure 160/74 72/35 80/37 O2 Sat by Pulse 95 97 100 Oximetry 09/19/20 09/19/20 09/19/20 03:46 03:58 04:00 Temperature Pulse Rate 116 H 120 H 120 H Respiratory 28 H 25 H Rate Blood Pressure 80/37 119/63 119/63 O2 Sat by Pulse 98 97 98 Oximetry 09/19/20 09/19/20 09/19/20 04:14 04:16 04:30 Temperature 100.8 F H Pulse Rate 118 H 128 H Respiratory 28 H 30 H Rate Blood Pressure 118/58 78/40 O2 Sat by Pulse 96 100 Oximetry 09/19/20 09/19/20 09/19/20 04:45 05:00 05:15 Temperature Pulse Rate 130 H 119 H 120 H Respiratory 31 H 26 H 30 H Rate Blood Pressure 85/44 125/64 100/52 O2 Sat by Pulse 99 98 98 Oximetry 09/19/20 09/19/20 09/19/20 05:30 05:45 06:00 Temperature Pulse Rate 121 H 122 H 121 H Respiratory 28 H 26 H 27 H Rate Blood Pressure 103/57 103/58 112/58 O2 Sat by Pulse 100 99 100 Oximetry 09/19/20 09/19/20 09/19/20 06:15 06:30 06:46 Temperature Pulse Rate 122 H 122 H 133 H Respiratory 27 H 27 H 30 H Rate Blood Pressure 113/60 112/60 81/43 O2 Sat by Pulse 100 100 100 Oximetry 09/19/20 09/19/20 09/19/20 07:00 07:15 07:30 Temperature 102.3 F H Pulse Rate 122 H 121 H 120 H Respiratory 26 H 25 H 28 H Rate Blood Pressure 81/43 119/66 121/62 O2 Sat by Pulse 100 100 Oximetry 09/19/20 09/19/20 09/19/20 07:46 07:50 08:00 Temperature Pulse Rate 123 H 125 H 117 H Respiratory 30 H 24 Rate Blood Pressure 89/52 89/52 121/62 O2 Sat by Pulse 100 99 97 Oximetry 09/19/20 09/19/20 09/19/20 08:15 08:30 08:45 Temperature Pulse Rate 120 H 124 H 124 H Respiratory 28 H 30 H 30 H Rate Blood Pressure 127/64 130/59 113/59 O2 Sat by Pulse 98 98 98 Oximetry 09/19/20 09/19/20 09/19/20 09:00 09:15 09:30 Temperature Pulse Rate 125 H 124 H 122 H Respiratory 31 H 30 H 30 H Rate Blood Pressure 113/59 113/56 117/55 O2 Sat by Pulse 99 99 98 Oximetry 09/19/20 09/19/20 09/19/20 09:45 10:00 10:15 Temperature Pulse Rate 122 H 121 H 122 H Respiratory 30 H 30 H 30 H Rate Blood Pressure 122/58 121/60 125/60 O2 Sat by Pulse 99 99 99 Oximetry 09/19/20 09/19/20 09/19/20 10:30 10:45 11:00 Temperature Pulse Rate 121 H 122 H 122 H Respiratory 30 H 31 H 28 H Rate Blood Pressure 126/62 126/61 114/63 O2 Sat by Pulse 98 98 99 Oximetry 09/19/20 09/19/20 11:08 11:15 Temperature Pulse Rate 124 H 122 H Respiratory 30 H Rate Blood Pressure 114/63 125/63 O2 Sat by Pulse 99 98 Oximetry Constitutional: appears uncomfortable, other (elderly obese female with mildly increased respiratory effort at rest on MVS) Eyes: non-icteric ENT: oropharynx moist, other (ETT 24 cm STEVEN) Neck: supple, other (large circumference) Effort: mildly labored Ascultation: Bilateral: diminished breath sounds, rhonchi Percussion: Bilateral: not dull Cardiovascular: regular rate and rhythm Gastrointestinal: normoactive bowel sounds, soft, non-tender, non-distended (protuberant) Integumentary: other (some excoriation to skin of face) Extremities: no cyanosis, pulses normal, no ischemia or petechiae, edema (1+) Neurologic: pupils equal and round, motor strength normal and, unable to assess, other (sedated) Psychiatric: other (unable to assess) CBC and BMP: 09/19/20 05:12 09/19/20 12:10 ABG, PT/INR, D-dimer: ABG ABG pH 7.151 (7.320-7.450) L 09/19/20 02:53 POC ABG pCO2 58.1 mmHg (32.0-48.0) H 09/19/20 02:53 POC ABG pO2 91.0 mmHg (83-108) 09/19/20 02:53 POC ABG HCO3 19.8 09/19/20 02:53 ABG O2 Saturation 95.3 (0-100) 09/19/20 02:53 PT/INR, D-dimer PT 18.8 Sec. (12.2-14.9) H 09/15/20 14:00 INR 1.52 (0.87-1.13) H 09/15/20 14:00 D-Dimer > 84775 ng/mlDDU (0-234) H 09/19/20 05:12 Abnormal lab findings: Abnormal Labs 09/08/20 09/08/20 09/08/20 17:37 17:37 17:37 WBC 4.3 L RBC Hgb Hct RDW Plt Count 106 L Lymph % (Auto) [place] % (Auto) 7.5 H Lymph # (Auto) 0.6 L Seg Neutrophils % 77.4 H Seg Neuts % (Manual) Lymphocytes % (Manual) Seg Neutrophils # Seg Neutrophils # Man Lymphocytes # (Manual) PT INR D-Dimer 741.67 H Heparin Anti-Xa Level ABG pH POC ABG pCO2 POC ABG pO2 ABG Hemoglobin ABG Oxyhemoglobin ABG Sodium ABG Potassium ABG Chloride ABG Glucose Carboxyhemoglobin Sodium 129 L Potassium Chloride 91.9 L Carbon Dioxide BUN 32 H Creatinine 1.5 H Glucose 200 H POC Glucose Calcium 8.1 L Phosphorus Magnesium Ferritin AST 49 H Lactate Dehydrogenase C-Reactive Protein Total Protein Albumin 2.7 L TSH Arterial Blood Glucose Arterial Blood Ionized Calcium Ur Specific [place] Urine Creatinine Coronavirus (PCR) 09/08/20 09/08/20 09/08/20 17:37 17:37 22:24 WBC RBC Hgb Hct RDW Plt Count Lymph % (Auto) [place] % (Auto) Lymph # (Auto) Seg Neutrophils % Seg Neuts % (Manual) Lymphocytes % (Manual) Seg Neutrophils # Seg Neutrophils # Man Lymphocytes # (Manual) PT INR D-Dimer Heparin Anti-Xa Level ABG pH POC ABG pCO2 POC ABG pO2 ABG Hemoglobin ABG Oxyhemoglobin ABG Sodium ABG Potassium ABG Chloride ABG Glucose Carboxyhemoglobin Sodium Potassium Chloride Carbon Dioxide BUN Creatinine Glucose 201 H POC Glucose Calcium Phosphorus Magnesium Ferritin 731.2 H AST Lactate Dehydrogenase 396 H C-Reactive Protein 7.00 H Total Protein Albumin TSH Arterial Blood Glucose Arterial Blood Ionized Calcium Ur Specific [place] 1.035 H Urine Creatinine Coronavirus (PCR) 09/08/20 09/09/20 09/09/20 23:35 07:30 08:28 WBC 3.4 L RBC Hgb 15.5 H Hct 47.1 H RDW Plt Count 95 L Lymph % (Auto) 9.5 L [place] % (Auto) Lymph # (Auto) 0.3 L Seg Neutrophils % 85.2 H Seg Neuts % (Manual) Lymphocytes % (Manual) Seg Neutrophils # Seg Neutrophils # Man Lymphocytes # (Manual) PT INR D-Dimer Heparin Anti-Xa Level ABG pH POC ABG pCO2 POC ABG pO2 ABG Hemoglobin ABG Oxyhemoglobin ABG Sodium ABG Potassium ABG Chloride ABG Glucose Carboxyhemoglobin Sodium Potassium Chloride Carbon Dioxide BUN Creatinine Glucose POC Glucose 188 H 281 H Calcium Phosphorus Magnesium Ferritin AST Lactate Dehydrogenase C-Reactive Protein Total Protein Albumin TSH Arterial Blood Glucose Arterial Blood Ionized Calcium Ur Specific [place] Urine Creatinine Coronavirus (PCR) 09/09/20 09/09/20 09/09/20 08:28 09:00 11:48 WBC RBC Hgb Hct RDW Plt Count Lymph % (Auto) [place] % (Auto) Lymph # (Auto) Seg Neutrophils % Seg Neuts % (Manual) Lymphocytes % (Manual) Seg Neutrophils # Seg Neutrophils # Man Lymphocytes # (Manual) PT INR D-Dimer Heparin Anti-Xa Level ABG pH POC ABG pCO2 POC ABG pO2 ABG Hemoglobin ABG Oxyhemoglobin ABG Sodium ABG Potassium ABG Chloride ABG Glucose Carboxyhemoglobin Sodium 130 L Potassium Chloride 93.5 L Carbon Dioxide BUN 31 H Creatinine 1.3 H Glucose 266 H POC Glucose 354 H Calcium Phosphorus Magnesium Ferritin AST 48 H Lactate Dehydrogenase C-Reactive Protein Total Protein Albumin 2.8 L TSH Arterial Blood Glucose Arterial Blood Ionized Calcium Ur Specific [place] Urine Creatinine Coronavirus (PCR) Positive A 09/09/20 09/09/20 09/10/20 17:21 21:15 08:00 WBC RBC Hgb Hct RDW Plt Count Lymph % (Auto) [place] % (Auto) Lymph # (Auto) Seg Neutrophils % Seg Neuts % (Manual) Lymphocytes % (Manual) Seg Neutrophils # Seg Neutrophils # Man Lymphocytes # (Manual) PT INR D-Dimer Heparin Anti-Xa Level ABG pH POC ABG pCO2 POC ABG pO2 ABG Hemoglobin ABG Oxyhemoglobin ABG Sodium ABG Potassium ABG Chloride ABG Glucose Carboxyhemoglobin Sodium Potassium Chloride Carbon Dioxide BUN Creatinine Glucose POC Glucose 332 H 226 H 240 H Calcium Phosphorus Magnesium Ferritin AST Lactate Dehydrogenase C-Reactive Protein Total Protein Albumin TSH Arterial Blood Glucose Arterial Blood Ionized Calcium Ur Specific [place] Urine Creatinine Coronavirus (PCR) 09/10/20 09/10/20 09/10/20 12:12 15:14 16:43 WBC RBC Hgb Hct RDW Plt Count Lymph % (Auto) [place] % (Auto) Lymph # (Auto) Seg Neutrophils % Seg Neuts % (Manual) Lymphocytes % (Manual) Seg Neutrophils # Seg Neutrophils # Man Lymphocytes # (Manual) PT INR D-Dimer Heparin Anti-Xa Level ABG pH POC ABG pCO2 48.5 H POC ABG pO2 51.9 L ABG Hemoglobin ABG Oxyhemoglobin 85.1 L ABG Sodium 135.6 L ABG Potassium ABG Chloride ABG Glucose 310 H Carboxyhemoglobin Sodium 132 L Potassium Chloride 93.2 L Carbon Dioxide BUN 43 H Creatinine 1.6 H Glucose 277 H POC Glucose 267 H Calcium Phosphorus Magnesium Ferritin AST 49 H Lactate Dehydrogenase C-Reactive Protein Total Protein 8.3 H Albumin 3.0 L TSH Arterial Blood Glucose 310 H Arterial Blood Ionized Calcium Ur Specific [place] Urine Creatinine Coronavirus (PCR) 09/10/20 09/10/20 09/11/20 21:34 23:33 05:56 WBC RBC Hgb Hct RDW Plt Count Lymph % (Auto) [place] % (Auto) Lymph # (Auto) Seg Neutrophils % Seg Neuts % (Manual) Lymphocytes % (Manual) Seg Neutrophils # Seg Neutrophils # Man Lymphocytes # (Manual) PT INR D-Dimer Heparin Anti-Xa Level ABG pH POC ABG pCO2 POC ABG pO2 ABG Hemoglobin ABG Oxyhemoglobin ABG Sodium 135.9 L ABG Potassium ABG Chloride ABG Glucose 341 H Carboxyhemoglobin Sodium 133 L Potassium Chloride 94.2 L Carbon Dioxide BUN 54 H Creatinine 1.6 H Glucose 318 H POC Glucose 306 H Calcium Phosphorus Magnesium Ferritin AST 46 H Lactate Dehydrogenase C-Reactive Protein Total Protein Albumin 2.7 L TSH Arterial Blood Glucose 341 H Arterial Blood Ionized Calcium 4.5 L Ur Specific [place] Urine Creatinine Coronavirus (PCR) 09/11/20 09/11/20 09/11/20 05:56 07:22 09:00 WBC RBC Hgb Hct RDW Plt Count Lymph % (Auto) [place] % (Auto) Lymph # (Auto) Seg Neutrophils % Seg Neuts % (Manual) Lymphocytes % (Manual) Seg Neutrophils # Seg Neutrophils # Man Lymphocytes # (Manual) PT INR D-Dimer Heparin Anti-Xa Level ABG pH POC ABG pCO2 POC ABG pO2 80.1 L ABG Hemoglobin ABG Oxyhemoglobin ABG Sodium 134.5 L ABG Potassium ABG Chloride ABG Glucose 334 H Carboxyhemoglobin Sodium Potassium Chloride Carbon Dioxide BUN Creatinine Glucose POC Glucose 305 H Calcium Phosphorus Magnesium Ferritin AST Lactate Dehydrogenase 755 H C-Reactive Protein 5.50 H Total Protein Albumin TSH Arterial Blood Glucose 334 H Arterial Blood Ionized Calcium Ur Specific [place] Urine Creatinine Coronavirus (PCR) 09/11/20 09/11/20 09/11/20 11:33 18:17 19:00 WBC RBC Hgb Hct RDW Plt Count Lymph % (Auto) [place] % (Auto) Lymph # (Auto) Seg Neutrophils % Seg Neuts % (Manual) Lymphocytes % (Manual) Seg Neutrophils # Seg Neutrophils # Man Lymphocytes # (Manual) PT INR D-Dimer Heparin Anti-Xa Level ABG pH POC ABG pCO2 POC ABG pO2 146.4 H ABG Hemoglobin ABG Oxyhemoglobin 98.3 H ABG Sodium ABG Potassium ABG Chloride ABG Glucose 267 H Carboxyhemoglobin 0.4 L Sodium Potassium Chloride Carbon Dioxide BUN Creatinine Glucose POC Glucose 304 H 296 H Calcium Phosphorus Magnesium Ferritin AST Lactate Dehydrogenase C-Reactive Protein Total Protein Albumin TSH Arterial Blood Glucose 267 H Arterial Blood Ionized Calcium Ur Specific [place] Urine Creatinine Coronavirus (PCR) 09/11/20 09/11/20 09/11/20 20:30 22:23 Unknown WBC RBC Hgb Hct RDW Plt Count Lymph % (Auto) [place] % (Auto) Lymph # (Auto) Seg Neutrophils % Seg Neuts % (Manual) Lymphocytes % (Manual) Seg Neutrophils # Seg Neutrophils # Man Lymphocytes # (Manual) PT INR D-Dimer 1324.85 H Heparin Anti-Xa Level ABG pH POC ABG pCO2 POC ABG pO2 ABG Hemoglobin ABG Oxyhemoglobin ABG Sodium ABG Potassium ABG Chloride ABG Glucose Carboxyhemoglobin Sodium Potassium Chloride Carbon Dioxide BUN Creatinine Glucose POC Glucose 268 H Calcium Phosphorus Magnesium Ferritin 1434.0 H AST Lactate Dehydrogenase C-Reactive Protein Total Protein Albumin TSH Arterial Blood Glucose Arterial Blood Ionized Calcium Ur Specific [place] Urine Creatinine Coronavirus (PCR) 09/11/20 09/12/20 09/12/20 Unknown 04:00 05:30 WBC RBC Hgb Hct RDW Plt Count Lymph % (Auto) [place] % (Auto) Lymph # (Auto) Seg Neutrophils % Seg Neuts % (Manual) Lymphocytes % (Manual) Seg Neutrophils # Seg Neutrophils # Man Lymphocytes # (Manual) PT INR D-Dimer Heparin Anti-Xa Level ABG pH POC ABG pCO2 POC ABG pO2 190.7 H ABG Hemoglobin 17.7 H ABG Oxyhemoglobin 98.9 H ABG Sodium ABG Potassium ABG Chloride ABG Glucose 322 H Carboxyhemoglobin 0.2 L Sodium Potassium Chloride Carbon Dioxide BUN 58 H Creatinine 1.8 H Glucose 279 H POC Glucose 313 H Calcium 7.9 L Phosphorus Magnesium Ferritin AST Lactate Dehydrogenase C-Reactive Protein Total Protein Albumin TSH Arterial Blood Glucose 322 H Arterial Blood Ionized Calcium Ur Specific [place] Urine Creatinine Coronavirus (PCR) 09/12/20 09/12/20 09/12/20 08:43 11:58 13:30 WBC RBC Hgb Hct RDW Plt Count Lymph % (Auto) [place] % (Auto) Lymph # (Auto) Seg Neutrophils % Seg Neuts % (Manual) Lymphocytes % (Manual) Seg Neutrophils # Seg Neutrophils # Man Lymphocytes # (Manual) PT INR D-Dimer Heparin Anti-Xa Level ABG pH POC ABG pCO2 POC ABG pO2 ABG Hemoglobin ABG Oxyhemoglobin ABG Sodium ABG Potassium ABG Chloride ABG Glucose Carboxyhemoglobin Sodium Potassium Chloride Carbon Dioxide BUN 51 H Creatinine 1.4 H Glucose 317 H POC Glucose 329 H Calcium Phosphorus Magnesium Ferritin AST Lactate Dehydrogenase C-Reactive Protein Total Protein Albumin 3.0 L TSH Arterial Blood Glucose Arterial Blood Ionized Calcium Ur Specific [place] Urine Creatinine 43.2 H Coronavirus (PCR) 09/12/20 09/12/20 09/12/20 17:17 17:17 17:55 WBC RBC Hgb 14.5 H Hct 43.5 H RDW Plt Count Lymph % (Auto) [place] % (Auto) Lymph # (Auto) Seg Neutrophils % Seg Neuts % (Manual) 96.0 H Lymphocytes % (Manual) 1.0 L Seg Neutrophils # Seg Neutrophils # Man 9.8 H Lymphocytes # (Manual) 0.1 L PT INR D-Dimer Heparin Anti-Xa Level ABG pH POC ABG pCO2 POC ABG pO2 ABG Hemoglobin ABG Oxyhemoglobin ABG Sodium ABG Potassium ABG Chloride ABG Glucose Carboxyhemoglobin Sodium Potassium Chloride Carbon Dioxide BUN Creatinine Glucose POC Glucose 425 H Calcium Phosphorus Magnesium Ferritin AST Lactate Dehydrogenase C-Reactive Protein Total Protein Albumin TSH 0.067 L Arterial Blood Glucose Arterial Blood Ionized Calcium Ur Specific [place] Urine Creatinine Coronavirus (PCR) 09/12/20 09/13/20 09/13/20 23:19 03:32 04:22 WBC RBC Hgb Hct RDW Plt Count Lymph % (Auto) [place] % (Auto) Lymph # (Auto) Seg Neutrophils % Seg Neuts % (Manual) Lymphocytes % (Manual) Seg Neutrophils # Seg Neutrophils # Man Lymphocytes # (Manual) PT INR D-Dimer Heparin Anti-Xa Level ABG pH 7.276 L 7.275 L POC ABG pCO2 54.0 H 54.7 H POC ABG pO2 46.6 L 47.1 L ABG Hemoglobin ABG Oxyhemoglobin 78.9 L 79.4 L ABG Sodium ABG Potassium ABG Chloride ABG Glucose 260 H 261 H Carboxyhemoglobin Sodium Potassium Chloride Carbon Dioxide BUN Creatinine Glucose POC Glucose 348 H Calcium Phosphorus Magnesium Ferritin AST Lactate Dehydrogenase C-Reactive Protein Total Protein Albumin TSH Arterial Blood Glucose 260 H 261 H Arterial Blood Ionized Calcium Ur Specific [place] Urine Creatinine Coronavirus (PCR) 09/13/20 09/13/20 09/13/20 04:52 11:53 17:13 WBC RBC Hgb Hct RDW Plt Count Lymph % (Auto) [place] % (Auto) Lymph # (Auto) Seg Neutrophils % Seg Neuts % (Manual) Lymphocytes % (Manual) Seg Neutrophils # Seg Neutrophils # Man Lymphocytes # (Manual) PT INR D-Dimer Heparin Anti-Xa Level ABG pH POC ABG pCO2 POC ABG pO2 ABG Hemoglobin ABG Oxyhemoglobin ABG Sodium ABG Potassium ABG Chloride ABG Glucose Carboxyhemoglobin Sodium Potassium Chloride Carbon Dioxide BUN Creatinine Glucose POC Glucose 229 H 302 H 356 H Calcium Phosphorus Magnesium Ferritin AST Lactate Dehydrogenase C-Reactive Protein Total Protein Albumin TSH Arterial Blood Glucose Arterial Blood Ionized Calcium Ur Specific [place] Urine Creatinine Coronavirus (PCR) 09/13/20 09/13/20 09/13/20 23:46 Unknown Unknown WBC RBC Hgb Hct RDW Plt Count 135 L Lymph % (Auto) [place] % (Auto) Lymph # (Auto) Seg Neutrophils % Seg Neuts % (Manual) Lymphocytes % (Manual) Seg Neutrophils # Seg Neutrophils # Man Lymphocytes # (Manual) PT INR D-Dimer Heparin Anti-Xa Level ABG pH POC ABG pCO2 POC ABG pO2 ABG Hemoglobin ABG Oxyhemoglobin ABG Sodium ABG Potassium ABG Chloride ABG Glucose Carboxyhemoglobin Sodium Potassium Chloride Carbon Dioxide BUN 54 H Creatinine 1.6 H Glucose 255 H POC Glucose 263 H Calcium Phosphorus Magnesium Ferritin AST Lactate Dehydrogenase C-Reactive Protein Total Protein Albumin 2.8 L TSH Arterial Blood Glucose Arterial Blood Ionized Calcium Ur Specific [place] Urine Creatinine Coronavirus (PCR) 09/14/20 09/14/20 09/14/20 05:46 10:53 10:53 WBC RBC Hgb Hct RDW Plt Count Lymph % (Auto) [place] % (Auto) Lymph # (Auto) Seg Neutrophils % Seg Neuts % (Manual) Lymphocytes % (Manual) Seg Neutrophils # Seg Neutrophils # Man Lymphocytes # (Manual) PT INR D-Dimer > 06772 H Heparin Anti-Xa Level ABG pH POC ABG pCO2 POC ABG pO2 ABG Hemoglobin ABG Oxyhemoglobin ABG Sodium ABG Potassium ABG Chloride ABG Glucose Carboxyhemoglobin Sodium Potassium Chloride Carbon Dioxide BUN 71 H Creatinine 2.8 H D Glucose 167 H POC Glucose 226 H Calcium Phosphorus 4.90 H D Magnesium 2.40 H Ferritin AST Lactate Dehydrogenase C-Reactive Protein 5.40 H Total Protein 5.9 L Albumin 2.7 L TSH Arterial Blood Glucose Arterial Blood Ionized Calcium Ur Specific [place] Urine Creatinine Coronavirus (PCR) 09/14/20 09/14/20 09/14/20 11:33 13:45 17:29 WBC RBC Hgb Hct RDW Plt Count Lymph % (Auto) [place] % (Auto) Lymph # (Auto) Seg Neutrophils % Seg Neuts % (Manual) Lymphocytes % (Manual) Seg Neutrophils # Seg Neutrophils # Man Lymphocytes # (Manual) PT INR D-Dimer Heparin Anti-Xa Level ABG pH 7.225 L POC ABG pCO2 60.1 H POC ABG pO2 ABG Hemoglobin ABG Oxyhemoglobin ABG Sodium ABG Potassium 5.2 H ABG Chloride 109.0 H ABG Glucose 205 H Carboxyhemoglobin Sodium Potassium Chloride Carbon Dioxide BUN Creatinine Glucose POC Glucose 166 H 202 H Calcium Phosphorus Magnesium Ferritin AST Lactate Dehydrogenase C-Reactive Protein Total Protein Albumin TSH Arterial Blood Glucose 205 H Arterial Blood Ionized Calcium Ur Specific [place] Urine Creatinine Coronavirus (PCR) 09/15/20 09/15/20 09/15/20 00:19 03:10 03:10 WBC 13.5 H RBC Hgb Hct RDW Plt Count 77 L Lymph % (Auto) 3.9 L [place] % (Auto) Lymph # (Auto) 0.5 L Seg Neutrophils % 89.9 H Seg Neuts % (Manual) Lymphocytes % (Manual) Seg Neutrophils # 12.1 H Seg Neutrophils # Man Lymphocytes # (Manual) PT INR D-Dimer Heparin Anti-Xa Level ABG pH POC ABG pCO2 POC ABG pO2 ABG Hemoglobin ABG Oxyhemoglobin ABG Sodium ABG Potassium ABG Chloride ABG Glucose Carboxyhemoglobin Sodium Potassium 5.7 H Chloride 107.7 H Carbon Dioxide 21 L BUN 85 H Creatinine 4.1 H Glucose 166 H POC Glucose 174 H Calcium Phosphorus Magnesium Ferritin AST Lactate Dehydrogenase C-Reactive Protein Total Protein 5.9 L Albumin 2.3 L TSH Arterial Blood Glucose Arterial Blood Ionized Calcium Ur Specific [place] Urine Creatinine Coronavirus (PCR) 09/15/20 09/15/20 09/15/20 03:10 03:10 05:34 WBC RBC Hgb Hct RDW Plt Count Lymph % (Auto) [place] % (Auto) Lymph # (Auto) Seg Neutrophils % Seg Neuts % (Manual) Lymphocytes % (Manual) Seg Neutrophils # Seg Neutrophils # Man Lymphocytes # (Manual) PT INR D-Dimer > 54665 H Heparin Anti-Xa Level ABG pH POC ABG pCO2 POC ABG pO2 ABG Hemoglobin ABG Oxyhemoglobin ABG Sodium ABG Potassium ABG Chloride ABG Glucose Carboxyhemoglobin Sodium Potassium Chloride Carbon Dioxide BUN Creatinine Glucose POC Glucose 146 H Calcium Phosphorus 6.50 H D Magnesium 2.40 H Ferritin AST Lactate Dehydrogenase C-Reactive Protein 3.90 H Total Protein Albumin TSH Arterial Blood Glucose Arterial Blood Ionized Calcium Ur Specific [place] Urine Creatinine Coronavirus (PCR) 09/15/20 09/15/20 09/15/20 06:12 12:30 13:25 WBC RBC Hgb Hct RDW Plt Count Lymph % (Auto) [place] % (Auto) Lymph # (Auto) Seg Neutrophils % Seg Neuts % (Manual) Lymphocytes % (Manual) Seg Neutrophils # Seg Neutrophils # Man Lymphocytes # (Manual) PT INR D-Dimer Heparin Anti-Xa Level ABG pH 7.178 L POC ABG pCO2 58.7 H POC ABG pO2 65.2 L ABG Hemoglobin ABG Oxyhemoglobin 90.5 L ABG Sodium ABG Potassium 5.1 H ABG Chloride 110.0 H ABG Glucose 173 H Carboxyhemoglobin Sodium Potassium 5.5 H 5.4 H Chloride 108.0 H Carbon Dioxide BUN 87 H 89 H Creatinine 4.3 H 4.2 H Glucose 151 H 180 H POC Glucose Calcium 8.2 L Phosphorus 6.70 H Magnesium Ferritin AST Lactate Dehydrogenase C-Reactive Protein Total Protein Albumin TSH Arterial Blood Glucose 173 H Arterial Blood Ionized Calcium Ur Specific [place] Urine Creatinine Coronavirus (PCR) 09/15/20 09/15/20 09/15/20 13:33 14:00 14:00 WBC RBC Hgb Hct RDW Plt Count 86 L Lymph % (Auto) [place] % (Auto) Lymph # (Auto) Seg Neutrophils % Seg Neuts % (Manual) Lymphocytes % (Manual) Seg Neutrophils # Seg Neutrophils # Man Lymphocytes # (Manual) PT 18.8 H INR 1.52 H D-Dimer Heparin Anti-Xa Level ABG pH POC ABG pCO2 POC ABG pO2 ABG Hemoglobin ABG Oxyhemoglobin ABG Sodium ABG Potassium ABG Chloride ABG Glucose Carboxyhemoglobin Sodium Potassium Chloride Carbon Dioxide BUN Creatinine Glucose POC Glucose 146 H Calcium Phosphorus Magnesium Ferritin AST Lactate Dehydrogenase C-Reactive Protein Total Protein Albumin TSH Arterial Blood Glucose Arterial Blood Ionized Calcium Ur Specific [place] Urine Creatinine Coronavirus (PCR) 09/15/20 09/15/20 09/15/20 18:02 21:10 23:04 WBC RBC Hgb Hct RDW Plt Count Lymph % (Auto) [place] % (Auto) Lymph # (Auto) Seg Neutrophils % Seg Neuts % (Manual) Lymphocytes % (Manual) Seg Neutrophils # Seg Neutrophils # Man Lymphocytes # (Manual) PT INR D-Dimer Heparin Anti-Xa Level 0.78 H ABG pH POC ABG pCO2 POC ABG pO2 ABG Hemoglobin ABG Oxyhemoglobin ABG Sodium ABG Potassium ABG Chloride ABG Glucose Carboxyhemoglobin Sodium Potassium Chloride Carbon Dioxide BUN Creatinine Glucose POC Glucose 241 H 296 H Calcium Phosphorus Magnesium Ferritin AST Lactate Dehydrogenase C-Reactive Protein Total Protein Albumin TSH Arterial Blood Glucose Arterial Blood Ionized Calcium Ur Specific [place] Urine Creatinine Coronavirus (PCR) 09/15/20 09/16/20 09/16/20 23:33 02:45 04:00 WBC 22.7 H RBC Hgb Hct RDW Plt Count 105 L Lymph % (Auto) [place] % (Auto) Lymph # (Auto) Seg Neutrophils % Seg Neuts % (Manual) Lymphocytes % (Manual) Seg Neutrophils # Seg Neutrophils # Man Lymphocytes # (Manual) PT INR D-Dimer Heparin Anti-Xa Level ABG pH 7.171 L POC ABG pCO2 57.1 H POC ABG pO2 144.1 H ABG Hemoglobin ABG Oxyhemoglobin ABG Sodium ABG Potassium 5.0 H ABG Chloride ABG Glucose 273 H Carboxyhemoglobin Sodium Potassium Chloride Carbon Dioxide BUN Creatinine Glucose POC Glucose 298 H Calcium Phosphorus Magnesium Ferritin AST Lactate Dehydrogenase C-Reactive Protein Total Protein Albumin TSH Arterial Blood Glucose 273 H Arterial Blood Ionized Calcium 4.5 L Ur Specific [place] Urine Creatinine Coronavirus (PCR) 09/16/20 09/16/20 09/16/20 04:20 05:10 11:38 WBC RBC Hgb Hct RDW Plt Count Lymph % (Auto) [place] % (Auto) Lymph # (Auto) Seg Neutrophils % Seg Neuts % (Manual) Lymphocytes % (Manual) Seg Neutrophils # Seg Neutrophils # Man Lymphocytes # (Manual) PT INR D-Dimer Heparin Anti-Xa Level ABG pH POC ABG pCO2 POC ABG pO2 ABG Hemoglobin ABG Oxyhemoglobin ABG Sodium ABG Potassium ABG Chloride ABG Glucose Carboxyhemoglobin Sodium Potassium 5.4 H Chloride Carbon Dioxide BUN 75 H Creatinine 3.7 H Glucose 265 H POC Glucose 269 H 279 H Calcium Phosphorus Magnesium Ferritin AST 46 H Lactate Dehydrogenase C-Reactive Protein Total Protein 6.2 L Albumin 2.9 L TSH Arterial Blood Glucose Arterial Blood Ionized Calcium Ur Specific [place] Urine Creatinine Coronavirus (PCR) 09/16/20 09/16/20 09/16/20 13:45 17:21 23:37 WBC RBC Hgb Hct RDW Plt Count Lymph % (Auto) [place] % (Auto) Lymph # (Auto) Seg Neutrophils % Seg Neuts % (Manual) Lymphocytes % (Manual) Seg Neutrophils # Seg Neutrophils # Man Lymphocytes # (Manual) PT INR D-Dimer Heparin Anti-Xa Level ABG pH 7.156 L POC ABG pCO2 59.8 H POC ABG pO2 48.2 L ABG Hemoglobin ABG Oxyhemoglobin 78.1 L ABG Sodium ABG Potassium 5.2 H ABG Chloride ABG Glucose 302 H Carboxyhemoglobin Sodium Potassium Chloride Carbon Dioxide BUN Creatinine Glucose POC Glucose 285 H 385 H Calcium Phosphorus Magnesium Ferritin AST Lactate Dehydrogenase C-Reactive Protein Total Protein Albumin TSH Arterial Blood Glucose 302 H Arterial Blood Ionized Calcium 4.4 L Ur Specific [place] Urine Creatinine Coronavirus (PCR) 09/17/20 09/17/20 09/17/20 04:52 04:52 04:52 WBC 19.4 H RBC Hgb Hct RDW 15.5 H Plt Count 91 L Lymph % (Auto) [place] % (Auto) Lymph # (Auto) Seg Neutrophils % Seg Neuts % (Manual) Lymphocytes % (Manual) Seg Neutrophils # Seg Neutrophils # Man Lymphocytes # (Manual) PT INR D-Dimer > 23560 H Heparin Anti-Xa Level ABG pH POC ABG pCO2 POC ABG pO2 ABG Hemoglobin ABG Oxyhemoglobin ABG Sodium ABG Potassium ABG Chloride ABG Glucose Carboxyhemoglobin Sodium Potassium 5.1 H Chloride Carbon Dioxide BUN 68 H Creatinine 4.1 H Glucose 291 H POC Glucose Calcium 8.3 L Phosphorus 5.60 H Magnesium Ferritin AST Lactate Dehydrogenase 729 H C-Reactive Protein 5.30 H Total Protein Albumin TSH Arterial Blood Glucose Arterial Blood Ionized Calcium Ur Specific [place] Urine Creatinine Coronavirus (PCR) 09/17/20 09/17/20 09/17/20 04:52 05:20 12:02 WBC RBC Hgb Hct RDW Plt Count Lymph % (Auto) [place] % (Auto) Lymph # (Auto) Seg Neutrophils % Seg Neuts % (Manual) Lymphocytes % (Manual) Seg Neutrophils # Seg Neutrophils # Man Lymphocytes # (Manual) PT INR D-Dimer Heparin Anti-Xa Level ABG pH POC ABG pCO2 POC ABG pO2 ABG Hemoglobin ABG Oxyhemoglobin ABG Sodium ABG Potassium ABG Chloride ABG Glucose Carboxyhemoglobin Sodium Potassium Chloride Carbon Dioxide BUN Creatinine Glucose POC Glucose 312 H 240 H Calcium Phosphorus Magnesium Ferritin 1323.0 H AST Lactate Dehydrogenase C-Reactive Protein Total Protein Albumin TSH Arterial Blood Glucose Arterial Blood Ionized Calcium Ur Specific [place] Urine Creatinine Coronavirus (PCR) 09/17/20 09/17/20 09/18/20 17:52 23:19 05:06 WBC RBC Hgb Hct RDW Plt Count Lymph % (Auto) [place] % (Auto) Lymph # (Auto) Seg Neutrophils % Seg Neuts % (Manual) Lymphocytes % (Manual) Seg Neutrophils # Seg Neutrophils # Man Lymphocytes # (Manual) PT INR D-Dimer Heparin Anti-Xa Level ABG pH POC ABG pCO2 POC ABG pO2 ABG Hemoglobin ABG Oxyhemoglobin ABG Sodium ABG Potassium ABG Chloride ABG Glucose Carboxyhemoglobin Sodium Potassium Chloride Carbon Dioxide BUN Creatinine Glucose POC Glucose 242 H 304 H 233 H Calcium Phosphorus Magnesium Ferritin AST Lactate Dehydrogenase C-Reactive Protein Total Protein Albumin TSH Arterial Blood Glucose Arterial Blood Ionized Calcium Ur Specific [place] Urine Creatinine Coronavirus (PCR) 09/18/20 09/18/20 09/18/20 05:15 05:15 09:36 WBC 20.4 H RBC 3.51 L Hgb Hct RDW 15.3 H Plt Count 31 L Lymph % (Auto) [place] % (Auto) Lymph # (Auto) Seg Neutrophils % Seg Neuts % (Manual) Lymphocytes % (Manual) Seg Neutrophils # Seg Neutrophils # Man Lymphocytes # (Manual) PT INR D-Dimer Heparin Anti-Xa Level ABG pH 7.282 L POC ABG pCO2 POC ABG pO2 149.0 H ABG Hemoglobin 10.4 L ABG Oxyhemoglobin ABG Sodium 135.9 L ABG Potassium ABG Chloride ABG Glucose 221 H Carboxyhemoglobin Sodium 135 L Potassium Chloride Carbon Dioxide BUN 57 H Creatinine 4.1 H Glucose 228 H POC Glucose Calcium 7.5 L Phosphorus 5.20 H Magnesium Ferritin AST Lactate Dehydrogenase C-Reactive Protein Total Protein Albumin TSH Arterial Blood Glucose 221 H Arterial Blood Ionized Calcium 4.1 L Ur Specific [place] Urine Creatinine Coronavirus (PCR) 09/18/20 09/18/20 09/18/20 10:53 11:35 17:10 WBC RBC Hgb Hct RDW Plt Count Lymph % (Auto) [place] % (Auto) Lymph # (Auto) Seg Neutrophils % Seg Neuts % (Manual) Lymphocytes % (Manual) Seg Neutrophils # Seg Neutrophils # Man Lymphocytes # (Manual) PT INR D-Dimer Heparin Anti-Xa Level < 0.10 L ABG pH 7.200 L POC ABG pCO2 66.8 H POC ABG pO2 38.6 L ABG Hemoglobin ABG Oxyhemoglobin 68.0 L ABG Sodium ABG Potassium 4.9 H ABG Chloride ABG Glucose 266 H Carboxyhemoglobin Sodium Potassium Chloride Carbon Dioxide BUN Creatinine Glucose POC Glucose 238 H Calcium Phosphorus Magnesium Ferritin AST Lactate Dehydrogenase C-Reactive Protein Total Protein Albumin TSH Arterial Blood Glucose 266 H Arterial Blood Ionized Calcium Ur Specific [place] Urine Creatinine Coronavirus (PCR) 09/18/20 09/18/20 09/19/20 17:54 23:47 02:53 WBC RBC Hgb Hct RDW Plt Count Lymph % (Auto) [place] % (Auto) Lymph # (Auto) Seg Neutrophils % Seg Neuts % (Manual) Lymphocytes % (Manual) Seg Neutrophils # Seg Neutrophils # Man Lymphocytes # (Manual) PT INR D-Dimer Heparin Anti-Xa Level ABG pH 7.151 L POC ABG pCO2 58.1 H POC ABG pO2 ABG Hemoglobin 11.7 L ABG Oxyhemoglobin ABG Sodium ABG Potassium 4.7 H ABG Chloride ABG Glucose 225 H Carboxyhemoglobin Sodium Potassium Chloride Carbon Dioxide BUN Creatinine Glucose POC Glucose 241 H 241 H Calcium Phosphorus Magnesium Ferritin AST Lactate Dehydrogenase C-Reactive Protein Total Protein Albumin TSH Arterial Blood Glucose 225 H Arterial Blood Ionized Calcium Ur Specific [place] Urine Creatinine Coronavirus (PCR) 09/19/20 09/19/20 09/19/20 05:12 05:12 05:12 WBC RBC Hgb Hct RDW Plt Count Lymph % (Auto) [place] % (Auto) Lymph # (Auto) Seg Neutrophils % Seg Neuts % (Manual) Lymphocytes % (Manual) Seg Neutrophils # Seg Neutrophils # Man Lymphocytes # (Manual) PT INR D-Dimer > 97835 H Heparin Anti-Xa Level ABG pH POC ABG pCO2 POC ABG pO2 ABG Hemoglobin ABG Oxyhemoglobin ABG Sodium ABG Potassium ABG Chloride ABG Glucose Carboxyhemoglobin Sodium Potassium Chloride Carbon Dioxide BUN Creatinine Glucose POC Glucose Calcium Phosphorus Magnesium Ferritin > 2000.0 H AST Lactate Dehydrogenase 1894 H C-Reactive Protein 9.20 H Total Protein Albumin TSH Arterial Blood Glucose Arterial Blood Ionized Calcium Ur Specific [place] Urine Creatinine Coronavirus (PCR) 09/19/20 05:27 WBC RBC Hgb Hct RDW Plt Count Lymph % (Auto) [place] % (Auto) Lymph # (Auto) Seg Neutrophils % Seg Neuts % (Manual) Lymphocytes % (Manual) Seg Neutrophils # Seg Neutrophils # Man Lymphocytes # (Manual) PT INR D-Dimer Heparin Anti-Xa Level ABG pH POC ABG pCO2 POC ABG pO2 ABG Hemoglobin ABG Oxyhemoglobin ABG Sodium ABG Potassium ABG Chloride ABG Glucose Carboxyhemoglobin Sodium Potassium Chloride Carbon Dioxide BUN Creatinine Glucose POC Glucose 220 H Calcium Phosphorus Magnesium Ferritin AST Lactate Dehydrogenase C-Reactive Protein Total Protein Albumin TSH Arterial Blood Glucose Arterial Blood Ionized Calcium Ur Specific [place] Urine Creatinine Coronavirus (PCR) Chest x-ray: image reviewed (none today) Allied health notes reviewed: nursing
[2020-09-19] MEDS: VASOPRESSIN 20 UNIT in SODIUM CHLORIDE 0.9% 100 ML IV SCH (12:30)
[2020-09-19] MEDS: METOCLOPRAMIDE 10 MG/2 ML INJ IV SCH ×2 (12:31→19:42)
[2020-09-19] MEDS: SENNOSIDES/DOCUSATE SODIUM 8.6/50 MG TAB PO SCH ×2 (12:31→22:11)
[2020-09-19] MEDS: FLUCONAZOLE 200 MG 200 MG/100 ML BAG IV SCH (13:43)
--- NOTE | 2020-09-19 13:48 | Progress Note ---
Assessment and Plan Neuro: Acute metabolic encephalopathy -Sedated with propofol, fentanyl, versed no changes to this point. -RASS goal neg 4 -PERRL -family updated on plan of care-spoke to daughter Vikas all questions and concerns answered -case management following Cardio: SB, H/O HTN, hypotension due to covid pna/sepsis -Atropine at bedside -Hold home Coreg-> no rate lowering meds; s/p bradycardia -SR-ST-heart rate minimally improved 75 remains on pressors HR 60-70 -trend QT -NE, vaso for hypotension -Hydralazine IV as needed for SBP greater than 160 has not required antihypertensive. -normal biV function on echo -CVP- trend daily Respiratory: Acute hypoxic respiratory failure due to covid pna , Acute hypoxemic respiratory failure, COVID-19 infection, Bilateral pneumonia -Intubated 09/10 -Presented with pneumonia -CCM consulted, appreciate recommendations -VAP bundle -Wean mechanical ventilation as tolerated -Current vent settings: AC, 30/450/18/100 -see RT notes for titration/changes -Serial ABGs -Serial CXRs -proned 09/13-09/17 -continue duonebs GI: Morbid obesity, TF, cholelithiasis, transaminitis -Nutrition consulted, appreciate recommendations -tolerating TF -PPI -BR: Colace -BM 09/10 -Trend LFTs and tbili : Acute kidney injury 2/2 VMN -Presented with a BUN/creatinine of 1.5/32 -Avoid nephrotoxic medication -Nephrology consulted, appreciate recommendations -Strict intake and output -bladder scanning with intermittent straight caths -Daily weights-currently not overloaded at this time. Hemodialysis pending tomorrow. -Trend BMP -renal consulted for uptrending Cr urine electrolytes and renal U/S ordered -09/15/2020 HD started s/p vascath placement -HD per nephrology -AM labs ordered - 24 hr fluid status: (+) 2626 Heme: Thrombocytopenia, elevated D-dimer -Leukopenia likely secondary to COVID-19 infection-resolved -Thrombocytopenia likely secondary to sepsis. 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 Heparin d/c, hit panel ordered. holding argatroban. -09/08 CTA chest shows no evidence of pulmonary embolism, multifocal airspace opacities with nodular densities and groundglass opacities in bilateral lungs, cholelithiasis, cholelithiasis -doppler BLE neg for DVT -Blood tinged sputum -Low dose heparin gtt -Trend CBC -> bloody secretions from ett today. -Transfuse for hemoglobin less than 7 ID: Sepsis, COVID-19 pneumonia, Acute hypoxemic respiratory failure, Acute respiratory distress syndrome, COVID-19 infection, Bilateral pneumonia, Elevated serum inflammatory markers to include D-dimer, ferritin and LDH, skin breakdown -Skin breakdown secondary to proning, WOCN consult, patient recommendations -Wound care per nursing -COVID-19 PCR (+) on 09/09 -Infectious disease consulted, appreciate recommendations -IV tocilizumab x1 -Dexamethasone 09/10 through 09/19 -Remdesivir 09/11 through 09/14 -Azithromycin 09/09 through 09/13, Rocephin 09/09 through 09/13 -Contact/droplet precaution -Trend COVID- inflammatory markers -on zinc and Vit C -ID started renally dosed cefepime/Vanco d/t increasing vasopresser use Endo: h/o DM; hyperglycemia; morbidly obese -Accu-Checks every 6hours -Avoid hypoglycemia -SSI -lantus scheduled, titrate as needed Disposition: ICU Full code Lines: A-line, IJ TLC, IJ Vascath The high probability of a clinically significant, sudden or life threatening deterioration of the [multi] system(s) required my full and direct attention, intervention and personal management. The aggregate critical care time was 50 minutes. This time is in addition to time spent performing reported procedures but includes the following: [x] Data Review and interpretation [x] Patient assessment and monitoring of vital signs [x] Documentation [x] Medication orders and management Subjective Date of service: 09/19/20 Principal diagnosis: Ac hypoxemic resp failure; ARDS; COVID-19 infxn; PNA; DM II; Obesity Interval history: Patient remains critically ill. 09/10: Patient was intubated by ED physician and transferred to the ICU. 09/11: Infectious disease was consulted today, patient was placed on vasopressors due to hypotension despite receiving 1 L IV fluid, Lantus started, bilateral lower extremity Doppler ultrasound ordered, A-line and CVL placed. Late in the evening patient was exhibiting sinus bradycardia, EKG ordered along with stat CMP which showed NCIOLASA. Stat ABG ordered which showed elevated PaO2 at 146 otherwise unremarkable on 100% FiO2. 09/12 bradycardia overnight requiring atropine x 1 and dopamine drip 09/13 tamia overnight 09/14 PRONED 16 H over the last day 09/16: Patient was proned overnight, per ID afebrile reculture and start cefepime and vancomycin, patient received hemodialysis today. Acidosis noted on ABG, vent changes per CCM and HD requested, 2 A of bicarb given. Has hyperkalemia today which has been treated. 09/17: again proned, slight hyperkalemia today. HD per nephro. Remains on sedation and vasopressor suppoprt which was increased with HD yesterday. 09/18: Temp 101.3 today, WBC remains elevated. Patient proned today. HD tx per nephrology .Removed 1.5 liters yesterday. Plt also 30K today. D/c heparin, hit panel ordered. holding off on argatroban after discussion with training mgr. Patient may have pulmonary hemorrhage as bloody secretions being suctioned from ETT. Acute hypoxic respiratory failure 09/18/2020 patient remains critically ill intubated sedated on pressors. Plan for hemodialysis tomorrow. Spoke with nurse training mgr no new changes over p. m. spoke with daughter Vikas she had already spoken to Dr. Monge and all questions and concerns were answered patient had no other questions for me Objective - Constitutional Vitals: Vital Signs - 12hr 09/19/20 09/19/20 09/19/20 02:00 02:15 02:30 Temperature Pulse Rate 103 H 96 H 121 H Respiratory 26 H 31 H 31 H Rate Blood Pressure 57/30 61/30 144/71 O2 Sat by Pulse 95 97 93 Oximetry 09/19/20 09/19/20 09/19/20 02:45 03:00 03:15 Temperature Pulse Rate 118 H 113 H 116 H Respiratory 28 H 25 H 24 Rate Blood Pressure 160/74 160/74 72/35 O2 Sat by Pulse 95 95 97 Oximetry 09/19/20 09/19/20 09/19/20 03:30 03:46 03:58 Temperature Pulse Rate 115 H 116 H 120 H Respiratory 22 28 H Rate Blood Pressure 80/37 80/37 119/63 O2 Sat by Pulse 100 98 97 Oximetry 09/19/20 09/19/20 09/19/20 04:00 04:14 04:16 Temperature 100.8 F H Pulse Rate 120 H 118 H Respiratory 25 H 28 H Rate Blood Pressure 119/63 118/58 O2 Sat by Pulse 98 96 Oximetry 09/19/20 09/19/20 09/19/20 04:30 04:45 05:00 Temperature Pulse Rate 128 H 130 H 119 H Respiratory 30 H 31 H 26 H Rate Blood Pressure 78/40 85/44 125/64 O2 Sat by Pulse 100 99 98 Oximetry 09/19/20 09/19/20 09/19/20 05:15 05:30 05:45 Temperature Pulse Rate 120 H 121 H 122 H Respiratory 30 H 28 H 26 H Rate Blood Pressure 100/52 103/57 103/58 O2 Sat by Pulse 98 100 99 Oximetry 09/19/20 09/19/20 09/19/20 06:00 06:15 06:30 Temperature Pulse Rate 121 H 122 H 122 H Respiratory 27 H 27 H 27 H Rate Blood Pressure 112/58 113/60 112/60 O2 Sat by Pulse 100 100 100 Oximetry 09/19/20 09/19/20 09/19/20 06:46 07:00 07:15 Temperature 102.3 F H Pulse Rate 133 H 122 H 121 H Respiratory 30 H 26 H 25 H Rate Blood Pressure 81/43 81/43 119/66 O2 Sat by Pulse 100 100 Oximetry 09/19/20 09/19/20 09/19/20 07:30 07:46 07:50 Temperature Pulse Rate 120 H 123 H 125 H Respiratory 28 H 30 H Rate Blood Pressure 121/62 89/52 89/52 O2 Sat by Pulse 100 100 99 Oximetry 09/19/20 09/19/20 09/19/20 08:00 08:15 08:30 Temperature Pulse Rate 117 H 120 H 124 H Respiratory 24 28 H 30 H Rate Blood Pressure 121/62 127/64 130/59 O2 Sat by Pulse 97 98 98 Oximetry 09/19/20 09/19/20 09/19/20 08:45 09:00 09:15 Temperature Pulse Rate 124 H 125 H 124 H Respiratory 30 H 31 H 30 H Rate Blood Pressure 113/59 113/59 113/56 O2 Sat by Pulse 98 99 99 Oximetry 09/19/20 09/19/20 09/19/20 09:30 09:45 10:00 Temperature Pulse Rate 122 H 122 H 121 H Respiratory 30 H 30 H 30 H Rate Blood Pressure 117/55 122/58 121/60 O2 Sat by Pulse 98 99 99 Oximetry 09/19/20 09/19/20 09/19/20 10:15 10:30 10:45 Temperature Pulse Rate 122 H 121 H 122 H Respiratory 30 H 30 H 31 H Rate Blood Pressure 125/60 126/62 126/61 O2 Sat by Pulse 99 98 98 Oximetry 09/19/20 09/19/20 09/19/20 11:00 11:08 11:15 Temperature Pulse Rate 122 H 124 H 122 H Respiratory 28 H 30 H Rate Blood Pressure 114/63 114/63 125/63 O2 Sat by Pulse 99 99 98 Oximetry 09/19/20 09/19/20 09/19/20 11:22 11:30 11:45 Temperature Pulse Rate 122 H 123 H Respiratory 32 H 30 H 30 H Rate Blood Pressure 129/62 128/61 O2 Sat by Pulse 99 98 99 Oximetry 09/19/20 09/19/20 09/19/20 12:00 12:15 12:30 Temperature 103.0 F H Pulse Rate 123 H 125 H 124 H Respiratory 30 H 30 H 27 H Rate Blood Pressure 131/64 130/59 119/62 O2 Sat by Pulse 98 98 97 Oximetry 09/19/20 09/19/20 09/19/20 12:46 13:00 13:15 Temperature Pulse Rate 130 H 130 H 129 H Respiratory 30 H 30 H 30 H Rate Blood Pressure 99/47 109/54 105/54 O2 Sat by Pulse 99 99 Oximetry 09/19/20 13:30 Temperature Pulse Rate 127 H Respiratory 30 H Rate Blood Pressure 114/56 O2 Sat by Pulse 98 Oximetry General appearance: Present: no acute distress - Neck Neck: supple - Respiratory Respiratory: bilateral: diminished, rhonchi Extremity abnormal: edema - Gastrointestinal General gastrointestinal: Present: non-tender, hypoactive bowel sounds, other (Slightly distended) - Musculoskeletal Musculoskeletal: generalized weakness - Neurologic Neurologic: other (Sedated) - Labs CBC & Chem 7: 09/19/20 05:12 09/19/20 12:10 Labs: Abnormal lab results 09/18/20 09/18/20 09/18/20 Range/Units 17:10 17:54 23:47 Plt Count (140-440) K/mm3 D-Dimer (0-234) ng/mlDDU ABG pH 7.200 L (7.320-7.450) POC ABG pCO2 66.8 H (32.0-48.0) mmHg POC ABG pO2 38.6 L (83-108) mmHg ABG Hemoglobin (12.0-17.5) ABG Oxyhemoglobin 68.0 L (94-98) ABG Potassium 4.9 H (3.40-4.50) mmol/L ABG Glucose 266 H (65-95) mg/dL Potassium (3.6-5.0) mmol/L Carbon Dioxide (22-30) mmol/L BUN (7-17) mg/dL Creatinine (0.6-1.2) mg/dL Glucose (65-100) mg/dL POC Glucose 241 H 241 H (70-105) mg/dL Calcium (8.4-10.2) mg/dL Ferritin (10.0-200.0) ng/mL Lactate Dehydrogenase (91-180) units/L C-Reactive Protein (0.00-1.30) mg/dL Arterial Blood Glucose 266 H (65-95) mg/dL 09/19/20 09/19/20 09/19/20 Range/Units 02:53 05:12 05:12 Plt Count 27 L (140-440) K/mm3 D-Dimer > 73513 H (0-234) ng/mlDDU ABG pH 7.151 L (7.320-7.450) POC ABG pCO2 58.1 H (32.0-48.0) mmHg POC ABG pO2 (83-108) mmHg ABG Hemoglobin 11.7 L (12.0-17.5) ABG Oxyhemoglobin (94-98) ABG Potassium 4.7 H (3.40-4.50) mmol/L ABG Glucose 225 H (65-95) mg/dL Potassium (3.6-5.0) mmol/L Carbon Dioxide (22-30) mmol/L BUN (7-17) mg/dL Creatinine (0.6-1.2) mg/dL Glucose (65-100) mg/dL POC Glucose (70-105) mg/dL Calcium (8.4-10.2) mg/dL Ferritin (10.0-200.0) ng/mL Lactate Dehydrogenase (91-180) units/L C-Reactive Protein (0.00-1.30) mg/dL Arterial Blood Glucose 225 H (65-95) mg/dL 09/19/20 09/19/20 09/19/20 Range/Units 05:12 05:12 05:27 Plt Count (140-440) K/mm3 D-Dimer (0-234) ng/mlDDU ABG pH (7.320-7.450) POC ABG pCO2 (32.0-48.0) mmHg POC ABG pO2 (83-108) mmHg ABG Hemoglobin (12.0-17.5) ABG Oxyhemoglobin (94-98) ABG Potassium (3.40-4.50) mmol/L ABG Glucose (65-95) mg/dL Potassium (3.6-5.0) mmol/L Carbon Dioxide (22-30) mmol/L BUN (7-17) mg/dL Creatinine (0.6-1.2) mg/dL Glucose (65-100) mg/dL POC Glucose 220 H (70-105) mg/dL Calcium (8.4-10.2) mg/dL Ferritin > 2000.0 H (10.0-200.0) ng/mL Lactate Dehydrogenase 1894 H (91-180) units/L C-Reactive Protein 9.20 H (0.00-1.30) mg/dL Arterial Blood Glucose (65-95) mg/dL 09/19/20 09/19/20 Range/Units 11:47 12:10 Plt Count (140-440) K/mm3 D-Dimer (0-234) ng/mlDDU ABG pH (7.320-7.450) POC ABG pCO2 (32.0-48.0) mmHg POC ABG pO2 (83-108) mmHg ABG Hemoglobin (12.0-17.5) ABG Oxyhemoglobin (94-98) ABG Potassium (3.40-4.50) mmol/L ABG Glucose (65-95) mg/dL Potassium 5.2 H (3.6-5.0) mmol/L Carbon Dioxide 21 L (22-30) mmol/L BUN 73 H (7-17) mg/dL Creatinine 4.6 H (0.6-1.2) mg/dL Glucose 171 H (65-100) mg/dL POC Glucose 158 H (70-105) mg/dL Calcium 8.0 L (8.4-10.2) mg/dL Ferritin (10.0-200.0) ng/mL Lactate Dehydrogenase (91-180) units/L C-Reactive Protein (0.00-1.30) mg/dL Arterial Blood Glucose (65-95) mg/dL HEART Score - HEART Score Troponin: Troponin T < 0.010 ng/mL (0.00-0.029) 09/09/20 00:39
--- NOTE | 2020-09-19 14:36 | Progress Note ---
Assessment and Plan Cultures: SARS CoV2 PCR: Positive 09/08/2020 blood culture: No growth 09/08/2020 urine culture: Usual skin stefania A/P: 75-year-old female with hypertension, diabetes, obesity hypoventilation syndrome was admitted to the hospital with cough, shortness of breath, not feeling well: #Shock, likely septic: no clear evidence of bacterial infection. Completed empiric CAP coverage. Probably related to severe/critical COVID. Rise in procal now probably from renal failure. #Bilateral COVID-19 pneumonia: critical disease. Remdesivir was discontinued due to worsening renal failure. #Coagulase-negative staph bacteremia: In 1 set contaminant. #Acute hypoxic respiratory failure: On the vent with very high requirements. #Morbid obesity #Hypertension, diabetes #Leukopenia, mild thrombocytopenia, transaminitis: Likely related to COVID-19 #NICOLASA: worse, now requiring dialysis. Recs: -Patient now with increasing pressor requirements continue empiric broad- spectrum antibiotics: Cefepime, Vancomycin, fluconazole, renally dosed. Likely plan to de-escalate tomorrow. -Follow-up culture data -continue steroids, higher dose due to morbid obesity -IV Tocilizumab administered 09/12/2020 (remdesivir course was not completed due to worsening renal failure) -significantly high d-dimer, agree with anticoagulation -very poor prognosis Trang Narayanan MD [facility] ([facility] O: [phone] F: [phone] Subjective Date of service: 09/19/20 Principal diagnosis: Ac hypoxemic resp failure; ARDS; COVID-19 infxn; PNA; DM II; Obesity Interval history: Remains febrile to 103 with a white count remains elevated. Blood cultures with coag negative staph Objective - Exam Narrative Exam: Physical exam deferred to reduce risk of transmission of COVID-19. Please refer to primary team's note. - Constitutional Vitals: Vital Signs Temp Pulse Resp BP Pulse Ox 103.0 F H 127 H 30 H 114/56 98 09/19/20 12:00 09/19/20 13:30 09/19/20 13:30 09/19/20 13:30 09/19/20 13:30 Temperature -Last 24 Hours Temperature 103.0 F Temperature 102.3 F Temperature 100.8 F Temperature 98.8 F Temperature 98.8 F Temperature 99.1 F Temperature 99.0 F Temperature 99.1 F Temperature 98.4 F - Labs CBC & Chem 7: 09/19/20 05:12 09/19/20 12:10 Labs: Abnormal lab results 09/18/20 09/18/20 09/18/20 Range/Units 17:10 17:54 23:47 Plt Count (140-440) K/mm3 D-Dimer (0-234) ng/mlDDU ABG pH 7.200 L (7.320-7.450) POC ABG pCO2 66.8 H (32.0-48.0) mmHg POC ABG pO2 38.6 L (83-108) mmHg ABG Hemoglobin (12.0-17.5) ABG Oxyhemoglobin 68.0 L (94-98) ABG Potassium 4.9 H (3.40-4.50) mmol/L ABG Glucose 266 H (65-95) mg/dL Potassium (3.6-5.0) mmol/L Carbon Dioxide (22-30) mmol/L BUN (7-17) mg/dL Creatinine (0.6-1.2) mg/dL Glucose (65-100) mg/dL POC Glucose 241 H 241 H (70-105) mg/dL Calcium (8.4-10.2) mg/dL Ferritin (10.0-200.0) ng/mL Lactate Dehydrogenase (91-180) units/L C-Reactive Protein (0.00-1.30) mg/dL Arterial Blood Glucose 266 H (65-95) mg/dL 09/19/20 09/19/20 09/19/20 Range/Units 02:53 05:12 05:12 Plt Count 27 L (140-440) K/mm3 D-Dimer > 70336 H (0-234) ng/mlDDU ABG pH 7.151 L (7.320-7.450) POC ABG pCO2 58.1 H (32.0-48.0) mmHg POC ABG pO2 (83-108) mmHg ABG Hemoglobin 11.7 L (12.0-17.5) ABG Oxyhemoglobin (94-98) ABG Potassium 4.7 H (3.40-4.50) mmol/L ABG Glucose 225 H (65-95) mg/dL Potassium (3.6-5.0) mmol/L Carbon Dioxide (22-30) mmol/L BUN (7-17) mg/dL Creatinine (0.6-1.2) mg/dL Glucose (65-100) mg/dL POC Glucose (70-105) mg/dL Calcium (8.4-10.2) mg/dL Ferritin (10.0-200.0) ng/mL Lactate Dehydrogenase (91-180) units/L C-Reactive Protein (0.00-1.30) mg/dL Arterial Blood Glucose 225 H (65-95) mg/dL 09/19/20 09/19/20 09/19/20 Range/Units 05:12 05:12 05:27 Plt Count (140-440) K/mm3 D-Dimer (0-234) ng/mlDDU ABG pH (7.320-7.450) POC ABG pCO2 (32.0-48.0) mmHg POC ABG pO2 (83-108) mmHg ABG Hemoglobin (12.0-17.5) ABG Oxyhemoglobin (94-98) ABG Potassium (3.40-4.50) mmol/L ABG Glucose (65-95) mg/dL Potassium (3.6-5.0) mmol/L Carbon Dioxide (22-30) mmol/L BUN (7-17) mg/dL Creatinine (0.6-1.2) mg/dL Glucose (65-100) mg/dL POC Glucose 220 H (70-105) mg/dL Calcium (8.4-10.2) mg/dL Ferritin > 2000.0 H (10.0-200.0) ng/mL Lactate Dehydrogenase 1894 H (91-180) units/L C-Reactive Protein 9.20 H (0.00-1.30) mg/dL Arterial Blood Glucose (65-95) mg/dL 09/19/20 09/19/20 Range/Units 11:47 12:10 Plt Count (140-440) K/mm3 D-Dimer (0-234) ng/mlDDU ABG pH (7.320-7.450) POC ABG pCO2 (32.0-48.0) mmHg POC ABG pO2 (83-108) mmHg ABG Hemoglobin (12.0-17.5) ABG Oxyhemoglobin (94-98) ABG Potassium (3.40-4.50) mmol/L ABG Glucose (65-95) mg/dL Potassium 5.2 H (3.6-5.0) mmol/L Carbon Dioxide 21 L (22-30) mmol/L BUN 73 H (7-17) mg/dL Creatinine 4.6 H (0.6-1.2) mg/dL Glucose 171 H (65-100) mg/dL POC Glucose 158 H (70-105) mg/dL Calcium 8.0 L (8.4-10.2) mg/dL Ferritin (10.0-200.0) ng/mL Lactate Dehydrogenase (91-180) units/L C-Reactive Protein (0.00-1.30) mg/dL Arterial Blood Glucose (65-95) mg/dL
[2020-09-19] MEDS: CEFEPIME/NS 1 GM/100 ML 1 GM/100 ML BAG IV SCH (18:18)
[2020-09-20] MEDS: MIDAZOLAM 100 MG in SODIUM CHLORIDE 0.9% 80 ML IV SCH (00:03)
[2020-09-20] MEDS: INSULIN LISPRO 100 UNIT/ML SUB-Q SCH ×3 (00:04→12:48)
[2020-09-20] MEDS: ACETAMINOPHEN 325 MG TAB PO PRN ×2 (00:05→05:00)
[2020-09-20] MEDS: VASOPRESSIN 20 UNIT in SODIUM CHLORIDE 0.9% 100 ML IV SCH ×2 (00:11→12:44)
[2020-09-20] MEDS: NORepinephrine/NS 4 MG-250 ML 4 MG/250 ML BAG IV SCH ×2 (00:15→08:23)
[2020-09-20] MEDS: fentaNYL DRIP Premix 2,000 MCG/100 ML BAG IV SCH ×6 (01:49→20:56)
[2020-09-20] MEDS: METOCLOPRAMIDE 10 MG/2 ML INJ IV SCH ×3 (04:06→20:03)
[2020-09-20] MEDS: IPRATROPIUM/ALBUTEROL SULFATE 3 ML AMPUL.NEB IH SCH ×3 (07:56→21:08)
[2020-09-20 08:36] LABS: Hematocrit 30.7 % (30.3-42.9); Mean Corpuscular HGB Conc 33 % (30-34); Mean Corpuscular Volume 96 fl (79-97); Red Blood Count 3.22 M/mm3 (3.65-5.03); Red Cell Distribution Width 15.5 % (13.2-15.2)
--- NOTE | 2020-09-20 08:45 | Progress Note ---
Assessment and Plan Neuro: Acute metabolic encephalopathy -Sedated with propofol, fentanyl, versed no changes to this point. -RASS goal neg 4 -PERRL -family updated on plan of care-spoke i spoke to daughter Vikas all questions and concerns answered -case management following Cardio: SB, H/O HTN, hypotension due to covid pna/sepsis -Atropine at bedside -Hold home Coreg-> no rate lowering meds; s/p bradycardia -SR-ST-heart rate minimally improved 75 remains on pressors Heart rate well controlled in 70s. -trend QT -NE, vaso for hypotension -Hydralazine IV as needed for SBP greater than 160 has not required ant ihypertensive. Has not required hydralazine will follow. -normal biV function on echo -CVP- trend daily Respiratory: Acute hypoxic respiratory failure due to covid pna , Acute hypoxem ic respiratory failure, COVID-19 infection, Bilateral pneumonia -Intubated 09/10 -Presented with pneumonia -CCM consulted, appreciate recommendations -VAP bundle -Wean mechanical ventilation as tolerated -Current vent settings: AC, 30/450/18/100 -see RT notes for titration/changes -Serial ABGs -Serial CXRs -proned 09/13-09/17 -continue duonebs GI: Morbid obesity, TF, cholelithiasis, transaminitis -Nutrition consulted, appreciate recommendations -tolerating TF -PPI -BR: Colace -BM 09/10 -Trend LFTs and tbili -Prognosis extremely poor but if patient does survive sleep study. : Acute kidney injury 2/2 VMN -Presented with a BUN/creatinine of 1.5/32 -Avoid nephrotoxic medication -Nephrology consulted, appreciate recommendations -Strict intake and output -bladder scanning with intermittent straight caths -Daily weights-currently not overloaded at this time. Hemodialysis pending tomorrow. -Trend BMP -renal consulted for uptrending Cr urine electrolytes and renal U/S ordered -09/15/2020 HD started s/p vascath placement -HD per nephrology -AM labs ordered - 24 hr fluid status: (+) 2626 Heme: Thrombocytopenia, elevated D-dimer -Leukopenia likely secondary to COVID-19 infection-resolved -Thrombocytopenia likely secondary to sepsis. 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 Heparin d/c, hit panel ordered. holding argatroban. -09/08 CTA chest shows no evidence of pulmonary embolism, multifocal airspace opacities with nodular densities and groundglass opacities in bilateral lungs, cholelithiasis, cholelithiasis -doppler BLE neg for DVT -Blood tinged sputum -Low dose heparin gtt -Trend CBC -> bloody secretions from ett today. -Transfuse for hemoglobin less than 7 ID: Sepsis, COVID-19 pneumonia, Acute hypoxemic respiratory failure, Acute respiratory distress syndrome, COVID-19 infection, Bilateral pneumonia, Elevated serum inflammatory markers to include D-dimer, ferritin and LDH, skin breakdown -Skin breakdown secondary to proning, WOCN consult, patient recommendations -Wound care per nursing -COVID-19 PCR (+) on 09/09 -Infectious disease consulted, appreciate recommendations -IV tocilizumab x1 -Dexamethasone 09/10 through 09/19 -Remdesivir 09/11 through 09/14 -Azithromycin 09/09 through 09/13, Rocephin 09/09 through 09/13 -Contact/droplet precaution -Trend COVID- inflammatory markers -on zinc and Vit C -ID started renally dosed cefepime/Vanco d/t increasing vasopresser use Endo: h/o DM; hyperglycemia; morbidly obese -Accu-Checks every 6hours -Avoid hypoglycemia -SSI -lantus scheduled, titrate as needed Disposition: ICU Full code Lines: A-line, IJ TLC, IJ Vascath The high probability of a clinically significant, sudden or life threatening deterioration of the [multi] system(s) required my full and direct attention, intervention and personal management. The aggregate critical care time was 42 minutes. This time is in addition to time spent performing reported procedures but includes the following: [x] Data Review and interpretation [x] Patient assessment and monitoring of vital signs [x] Documentation [x] Medication orders and management Subjective Date of service: 09/20/20 Principal diagnosis: Ac hypoxemic resp failure; ARDS; COVID-19 infxn; PNA; DM II ; Obesity Interval history: Patient remains critically ill. 09/10: Patient was intubated by ED physician and transferred to the ICU. 09/11: Infectious disease was consulted today, patient was placed on vasopressors due to hypotension despite receiving 1 L IV fluid, Lantus started, bilateral lower extremity Doppler ultrasound ordered, A-line and CVL placed. Late in the evening patient was exhibiting sinus bradycardia, EKG ordered along with stat CMP which showed NICOLASA. Stat ABG ordered which showed elevated PaO2 at 146 otherwise unremarkable on 100% FiO2. 09/12 bradycardia overnight requiring atropine x 1 and dopamine drip 09/13 tamia overnight 09/14 PRONED 16 H over the last day 09/16: Patient was proned overnight, per ID afebrile reculture and start cefepime and vancomycin, patient received hemodialysis today. Acidosis noted on ABG, vent changes per CCM and HD requested, 2 A of bicarb given. Has hyperkalemia today which has been treated. 09/17: again proned, slight hyperkalemia today. HD per nephro. Remains on sedation and vasopressor suppoprt which was increased with HD yesterday. 09/18: Temp 101.3 today, WBC remains elevated. Patient proned today. HD tx per nephrology .Removed 1.5 liters yesterday. Plt also 30K today. D/c heparin, hit panel ordered. holding off on argatroban after discussion with map editor. Patient may have pulmonary hemorrhage as bloody secretions being suctioned from ETT. Acute hypoxic respiratory failure 09/19/2020 patient remains critically ill intubated sedated on pressors. Plan for hemodialysis tomorrow. Spoke with nurse map editor no new changes over p.m. spoke with daughter Vikas she had already spoken to Dr. Monge and all questions and concerns were answered patient had no other questions for me 09/20/2020. Patient remains intubated critically ill. Tolerated hemodialysis today. Patient unable to be weaned from pressors no new events overnight. Nose remains extremely poor. Objective - Constitutional Vitals: Vital Signs - 12hr 09/19/20 09/19/20 09/19/20 21:00 21:15 21:30 Temperature Pulse Rate 118 H 118 H 118 H Respiratory 30 H 30 H 30 H Rate Blood Pressure 89/59 108/58 112/54 O2 Sat by Pulse 98 98 99 Oximetry 09/19/20 09/19/20 09/19/20 21:45 22:00 22:15 Temperature Pulse Rate 117 H 119 H 119 H Respiratory 30 H 30 H 31 H Rate Blood Pressure 109/54 101/56 102/63 O2 Sat by Pulse Oximetry 08/03/21 08/03/21 08/03/21 22:30 22:45 23:00 Temperature Pulse Rate 120 H 118 H 118 H Respiratory 30 H 30 H 30 H Rate Blood Pressure 99/60 118/60 113/57 O2 Sat by Pulse Oximetry 09/19/20 09/19/20 09/19/20 23:15 23:30 23:45 Temperature Pulse Rate 119 H 119 H 118 H Respiratory 30 H 31 H 30 H Rate Blood Pressure 120/55 122/57 108/58 O2 Sat by Pulse 100 100 Oximetry 09/20/20 09/20/20 09/20/20 00:00 00:15 00:30 Temperature Pulse Rate 122 H 120 H 119 H Respiratory 31 H 30 H 30 H Rate Blood Pressure 105/54 112/59 108/58 O2 Sat by Pulse 99 99 98 Oximetry 09/20/20 09/20/20 09/20/20 00:45 01:00 01:15 Temperature Pulse Rate 119 H 117 H 118 H Respiratory 30 H 30 H 30 H Rate Blood Pressure 115/60 112/56 121/59 O2 Sat by Pulse 100 99 100 Oximetry 09/20/20 09/20/20 09/20/20 01:30 01:45 02:00 Temperature Pulse Rate 118 H 118 H 119 H Respiratory 30 H 30 H 31 H Rate Blood Pressure 124/58 119/60 115/59 O2 Sat by Pulse 100 100 98 Oximetry 09/20/20 09/20/20 09/20/20 02:15 02:30 02:45 Temperature Pulse Rate 118 H 118 H 117 H Respiratory 30 H 30 H 30 H Rate Blood Pressure 119/56 114/57 115/55 O2 Sat by Pulse 98 99 98 Oximetry 09/20/20 09/20/20 09/20/20 03:00 03:15 03:30 Temperature Pulse Rate 116 H 117 H 115 H Respiratory 30 H 30 H 30 H Rate Blood Pressure 111/55 111/56 109/54 O2 Sat by Pulse 98 98 98 Oximetry 09/20/20 09/20/20 09/20/20 03:36 03:45 03:50 Temperature Pulse Rate 118 H 116 H 118 H Respiratory 30 H Rate Blood Pressure 66/62 115/56 O2 Sat by Pulse 98 100 Oximetry 09/20/20 09/20/20 09/20/20 04:00 04:15 04:30 Temperature 103.2 F H Pulse Rate 116 H 115 H 115 H Respiratory 30 H 30 H 30 H Rate Blood Pressure 111/54 122/54 97/53 O2 Sat by Pulse 99 97 97 Oximetry 09/20/20 09/20/20 09/20/20 04:45 05:00 05:15 Temperature Pulse Rate 115 H 116 H 117 H Respiratory 30 H 30 H 30 H Rate Blood Pressure 93/57 100/55 102/57 O2 Sat by Pulse 99 99 98 Oximetry 09/20/20 09/20/20 09/20/20 05:30 05:34 05:45 Temperature Pulse Rate 118 H 119 H Respiratory 31 H 31 H Rate Blood Pressure 97/58 116/58 O2 Sat by Pulse 98 99 100 Oximetry 09/20/20 09/20/20 09/20/20 06:00 06:15 06:30 Temperature Pulse Rate 117 H 118 H 116 H Respiratory 30 H 30 H 30 H Rate Blood Pressure 106/53 117/56 104/54 O2 Sat by Pulse 100 100 100 Oximetry 09/20/20 09/20/20 08:00 08:28 Temperature 102.5 F H Pulse Rate 116 H Respiratory Rate Blood Pressure 104/54 O2 Sat by Pulse 100 Oximetry General appearance: Present: no acute distress, other (Intubated sedated) - EENT ENT: other - Neck Neck: other (Edematous supple) - Respiratory Respiratory: bilateral: rales, rhonchi Extremity abnormal: edema - Gastrointestinal General gastrointestinal: Present: distended, hypoactive bowel sounds - Neurologic Neurologic: focal deficits - Labs CBC & Chem 7: 09/20/20 08:00 09/20/20 08:00 Labs: Abnormal lab results 09/19/20 09/19/20 09/19/20 Range/Units 05:12 11:47 12:10 Plt Count 27 L (140-440) K/mm3 ABG pH (7.320-7.450) POC ABG pCO2 (32.0-48.0) mmHg POC ABG pO2 (83-108) mmHg ABG Hemoglobin (12.0-17.5) ABG Potassium (3.40-4.50) mmol/L ABG Glucose (65-95) mg/dL Potassium 5.2 H (3.6-5.0) mmol/L Carbon Dioxide 21 L (22-30) mmol/L BUN 73 H (7-17) mg/dL Creatinine 4.6 H (0.6-1.2) mg/dL Glucose 171 H (65-100) mg/dL POC Glucose 158 H (70-105) mg/dL Calcium 8.0 L (8.4-10.2) mg/dL Arterial Blood Glucose (65-95) mg/dL Arterial Blood Ionized Calcium (4.6-5.3) mg/dL 09/19/20 09/19/20 09/20/20 Range/Units 17:34 23:59 03:01 Plt Count (140-440) K/mm3 ABG pH 7.186 L (7.320-7.450) POC ABG pCO2 54.5 H (32.0-48.0) mmHg POC ABG pO2 118.4 H (83-108) mmHg ABG Hemoglobin 10.8 L (12.0-17.5) ABG Potassium 5.1 H (3.40-4.50) mmol/L ABG Glucose 193 H (65-95) mg/dL Potassium (3.6-5.0) mmol/L Carbon Dioxide (22-30) mmol/L BUN (7-17) mg/dL Creatinine (0.6-1.2) mg/dL Glucose (65-100) mg/dL POC Glucose 131 H 147 H (70-105) mg/dL Calcium (8.4-10.2) mg/dL Arterial Blood Glucose 193 H (65-95) mg/dL Arterial Blood Ionized Calcium 4.4 L (4.6-5.3) mg/dL 09/20/20 Range/Units 05:35 Plt Count (140-440) K/mm3 ABG pH (7.320-7.450) POC ABG pCO2 (32.0-48.0) mmHg POC ABG pO2 (83-108) mmHg ABG Hemoglobin (12.0-17.5) ABG Potassium (3.40-4.50) mmol/L ABG Glucose (65-95) mg/dL Potassium (3.6-5.0) mmol/L Carbon Dioxide (22-30) mmol/L BUN (7-17) mg/dL Creatinine (0.6-1.2) mg/dL Glucose (65-100) mg/dL POC Glucose 188 H (70-105) mg/dL Calcium (8.4-10.2) mg/dL Arterial Blood Glucose (65-95) mg/dL Arterial Blood Ionized Calcium (4.6-5.3) mg/dL HEART Score - HEART Score Troponin: Troponin T < 0.010 ng/mL (0.00-0.029) 09/09/20 00:39
[2020-09-20] MEDS: INSULIN GLARGINE 100 UNITS/ML SUB-Q SCH ×2 (08:52→21:01)
[2020-09-20 08:57] LABS: Calcium 8.1 mg/dL (8.4-10.2)
[2020-09-20] MEDS: SENNOSIDES/DOCUSATE SODIUM 8.6/50 MG TAB PO SCH ×2 (09:06→21:01)
[2020-09-20] MEDS: FAMOTIDINE 20 MG/2 ML INJ IV SCH ×2 (09:06→21:01)
[2020-09-20] MEDS: ASCORBIC ACID 500 MG TAB PO SCH ×2 (09:06→21:01)
[2020-09-20] MEDS: CHOLECALCIFEROL (VIT D3) 1000 UNIT (25 mcg) TAB PO SCH (09:07)
[2020-09-20] MEDS: ZINC SULFATE 220 MG CAP PO SCH ×2 (09:07→21:01)
--- NOTE | 2020-09-20 09:24 | Progress Note ---
Assessment and Plan Impression * Oliguric acute kidney injury secondary to ATN * Acute hypoxic/hypercapnic respirtaory failure secondary to COVID 19 PNA * COVID 19 PNA * Sepsis * Hyperkalemia * Azotemia * Respiratory acidosis * Type II DM Plan: * Patient is s/p HD on Friday, Friday, Friday (1 liter removed each treatment) as patient continuing to require significant vent support * HD yesterday with 1.5L UF * Serum potassium noted to be elevated at 5.4 today. Shall attempt dialysis today. Patient is however still somewhat tachycardic * UF as tolerated * Dose medications for renal function * Vent management per CCM * ID following * Pressors prn to maintain MAP >65 Subjective Date of service: 09/20/20 Principal diagnosis: Ac hypoxemic resp failure; ARDS; COVID-19 infxn; PNA; DM II; Obesity Interval history: Patient remains in the ICU. Currently on the ventilator. On 80% FiO2. Currently on Levophed as well as vasopressin. Objective - Vital Signs Vital signs: Vital Signs - 12hr 09/19/20 09/19/20 09/19/20 21:30 21:45 22:00 Temperature Pulse Rate 118 H 117 H 119 H Respiratory 30 H 30 H 30 H Rate Blood Pressure 112/54 109/54 101/56 O2 Sat by Pulse 99 Oximetry 09/19/20 09/19/20 09/19/20 22:15 22:30 22:45 Temperature Pulse Rate 119 H 120 H 118 H Respiratory 31 H 30 H 30 H Rate Blood Pressure 102/63 99/60 118/60 O2 Sat by Pulse Oximetry 09/19/20 09/19/20 09/19/20 23:00 23:15 23:30 Temperature Pulse Rate 118 H 119 H 119 H Respiratory 30 H 30 H 31 H Rate Blood Pressure 113/57 120/55 122/57 O2 Sat by Pulse 100 100 Oximetry 09/19/20 09/20/20 09/20/20 23:45 00:00 00:15 Temperature Pulse Rate 118 H 122 H 120 H Respiratory 30 H 31 H 30 H Rate Blood Pressure 108/58 105/54 112/59 O2 Sat by Pulse 99 99 Oximetry 09/20/20 09/20/20 09/20/20 00:30 00:45 01:00 Temperature Pulse Rate 119 H 119 H 117 H Respiratory 30 H 30 H 30 H Rate Blood Pressure 108/58 115/60 112/56 O2 Sat by Pulse 98 100 99 Oximetry 09/20/20 09/20/20 09/20/20 01:15 01:30 01:45 Temperature Pulse Rate 118 H 118 H 118 H Respiratory 30 H 30 H 30 H Rate Blood Pressure 121/59 124/58 119/60 O2 Sat by Pulse 100 100 100 Oximetry 09/20/20 09/20/20 09/20/20 02:00 02:15 02:30 Temperature Pulse Rate 119 H 118 H 118 H Respiratory 31 H 30 H 30 H Rate Blood Pressure 115/59 119/56 114/57 O2 Sat by Pulse 98 98 99 Oximetry 09/20/20 09/20/20 09/20/20 02:45 03:00 03:15 Temperature Pulse Rate 117 H 116 H 117 H Respiratory 30 H 30 H 30 H Rate Blood Pressure 115/55 111/55 111/56 O2 Sat by Pulse 98 98 98 Oximetry 09/20/20 09/20/20 09/20/20 03:30 03:36 03:45 Temperature Pulse Rate 115 H 118 H 116 H Respiratory 30 H 30 H Rate Blood Pressure 109/54 66/62 115/56 O2 Sat by Pulse 98 98 100 Oximetry 09/20/20 09/20/20 09/20/20 03:50 04:00 04:15 Temperature 103.2 F H Pulse Rate 118 H 116 H 115 H Respiratory 30 H 30 H Rate Blood Pressure 111/54 122/54 O2 Sat by Pulse 99 97 Oximetry 09/20/20 09/20/20 09/20/20 04:30 04:45 05:00 Temperature Pulse Rate 115 H 115 H 116 H Respiratory 30 H 30 H 30 H Rate Blood Pressure 97/53 93/57 100/55 O2 Sat by Pulse 97 99 99 Oximetry 09/20/20 09/20/20 09/20/20 05:15 05:30 05:34 Temperature Pulse Rate 117 H 118 H Respiratory 30 H 31 H Rate Blood Pressure 102/57 97/58 O2 Sat by Pulse 98 98 99 Oximetry 09/20/20 09/20/20 09/20/20 05:45 06:00 06:15 Temperature Pulse Rate 119 H 117 H 118 H Respiratory 31 H 30 H 30 H Rate Blood Pressure 116/58 106/53 117/56 O2 Sat by Pulse 100 100 100 Oximetry 09/20/20 09/20/20 09/20/20 06:30 08:00 08:28 Temperature 102.5 F H Pulse Rate 116 H 116 H Respiratory 30 H 30 H Rate Blood Pressure 104/54 104/54 O2 Sat by Pulse 100 96 100 Oximetry - General Appearance General appearance: well-developed, well-nourished, appears stated age, obese, intubated EENT: PERRL, mucous membranes moist Neck: no JVD, other (Left IJ Vas-Cath in place) Respiratory: Present: Clear to Ascultation, Decreased Breath Sounds (At the bases) Cardiology: regular Gastrointestinal: normal, normoactive bowel sounds Integumentary: other (1+ edema) - Lab 09/20/20 08:00 09/20/20 08:00 Most recent lab results ABG pH 7.186 (7.320-7.450) L 09/20/20 03:01 ABG O2 Saturation 97.8 (0-100) 09/20/20 03:01 Calcium 8.1 mg/dL (8.4-10.2) L 09/20/20 08:00 Phosphorus 5.20 mg/dL (2.5-4.5) H 09/18/20 05:15 Magnesium 2.00 mg/dL (1.7-2.3) 09/18/20 05:15 Urine Creatinine 43.2 mg/dL (0.1-20.0) H 09/12/20 13:30 Urine Sodium 58 mmol/L 09/12/20 13:30 Medications & Allergies - Medications Allergies/Adverse Reactions: Allergies lisinopril Allergy (Severe, Verified 09/08/20 16:33) Angioedema Home Medications: Home Medications Medication Instructions Recorded Confirmed Last Taken Type Losartan 100 mg PO DAILY 09/09/20 09/09/20 09/08/20 08:00 History Metformin HCl 500 mg PO BID 09/09/20 09/09/20 09/08/20 History 500 carvediloL 3.125 mg PO BID 09/09/20 09/09/20 09/08/20 History glipiZIDE 10 mg PO AC 09/09/20 09/09/20 09/08/20 08:00 History Active Medications: Generic Name Dose Route Start Last Admin Trade Name Freq PRN Reason Stop Dose Admin Acetaminophen 650 mg 09/08/20 20:23 09/20/20 05:00 Acetaminophen 325 Mg Tab PO 650 mg Q4H PRN Administration Pain MILD(1-3)/Fever >100.5/CORTEZ Albuterol 2.5 mg 09/08/20 20:23 Albuterol 2.5 Mg/3 Ml Nebu IH Q4HRT PRN Shortness Of Breath Albuterol/Ipratropium 1 ampul 09/13/20 12:30 09/20/20 07:56 Ipratropium/Albuterol Sulfate 3 Ml Ampul.Neb IH 1 ampul BID ISIAH Administration Lipase/Protease/Amylase 1 each 09/11/20 11:45 Lipase 10,500/Protease 25,000/Amylase 43,750 (Units) Dr Cap FEEDTUBE PRN PRN For Clogged Feeding Tube Ascorbic Acid 500 mg 09/08/20 22:00 09/20/20 09:06 Ascorbic Acid 500 Mg Tab PO 500 mg BID ISIAH Administration Cholecalciferol 1,000 unit 09/09/20 10:00 09/20/20 09:07 Cholecalciferol (Vit D3) 1000 Unit (25 Mcg) Tab PO 1,000 unit QDAY ISIAH Administration Famotidine 10 mg 09/14/20 22:00 09/20/20 09:06 Famotidine 20 Mg/2 Ml Inj IV 10 mg BID ISIAH Administration Fentanyl 50 mcg 09/13/20 12:12 Fentanyl 100 Mcg/2 Ml Inj IV Q10MIN PRN ANALGESIA Guaifenesin 10 ml 09/09/20 16:01 09/10/20 05:14 Guaifenesin Dm 200/20 Mg Oral Liqd 10 Ml PO 10 ml Q4H PRN Administration Cough Hydralazine HCl 10 mg 09/11/20 21:33 Hydralazine 20 Mg/1 Ml Inj IV Q4H PRN Hypertension Fentanyl Citrate 2,000 mcg in 100 mls @ 7.45 mls/hr 09/10/20 23:00 09/20/20 08:53 Fentanyl Drip Premix IV 4 mcg/kg/hr TITR ISIAH 29.8 mls/hr Administration Protocol 1 MCG/KG/HR Norepinephrine 4 mg in 250 mls @ 7.5 mls/hr 09/11/20 17:00 09/20/20 08:23 Levophed Drip 4 Mg/Ns 250 Ml IV 10 mcg/min TITR ISIAH 37.5 mls/hr Administration Protocol 2 MCG/MIN Vasopressin 20 unit/ Sodium 101 mls @ 9.09 mls/hr 09/11/20 22:00 09/20/20 00:11 Chloride IV 0.03 units/min TITR ISIAH 9.09 mls/hr Administration Protocol 0.03 UNITS/MIN Midazolam HCl 100 mg/ Sodium 100 mls @ 1 mls/hr 09/12/20 17:30 09/20/20 00:03 Chloride IV 4 mg/hr TITR ISIAH 4 mls/hr Administration Protocol 1 MG/HR Propofol 1,000 mg in 100 mls @ 4.47 mls/hr 09/13/20 13:00 09/19/20 02:24 Diprivan 10 Mg/Ml IV 0 mcg/kg/min TITR ISIAH 0 mls/hr Titration Protocol 5 MCG/KG/MIN Sodium Chloride 1,000 mls @ 110 mls/hr 09/15/20 05:30 Nacl 0.9% 1000 Ml IV DIRECT ISIAH Dopamine HCl/Dextrose 800 mg in 250 mls @ 5.588 mls/hr 09/15/20 21:04 09/18/20 16:28 Intropin Drip 800 Mg/D5w 250 Ml IV 4 mcg/kg/min TITR ISIAH 11.175 mls/hr Titration Protocol 2 MCG/KG/MIN Sodium Chloride 100 mls @ 999 mls/hr 09/17/20 15:04 Nacl 0.9% IV NABEEL PRN Hypotension Cefepime HCl 1 gm in 100 mls @ 200 mls/hr 09/18/20 20:00 09/19/20 18:18 Cefepime/Ns 1 Gm/100 Ml IV 200 mls/hr QPM ISIAH Administration Protocol Fluconazole 200 mg in 100 mls @ 100 mls/hr 09/18/20 14:00 09/19/20 13:43 Diflucan IV 100 mls/hr Q24H ISIAH Administration Insulin Glargine 20 units 09/16/20 11:00 09/20/20 08:52 Insulin Glargine 100 Units/Ml SUB-Q 20 units QAMDIAB ISIAH Administration Insulin Glargine 10 units 09/19/20 22:00 09/19/20 22:11 Insulin Glargine 100 Units/Ml SUB-Q 10 units QHS ISIAH Administration Insulin Human Lispro 0 unit 07/26/21 12:00 09/20/20 05:43 Insulin Lispro 100 Unit/Ml SUB-Q 3 unit Q6HR ISIAH Administration Protocol Metoclopramide HCl 5 mg 09/19/20 12:00 09/20/20 04:06 Metoclopramide 10 Mg/2 Ml Inj IV 5 mg Q8H ISIAH Administration Midazolam HCl 2 mg 09/12/20 17:30 09/13/20 12:05 Midazolam 2 Mg/2 Ml Inj IV 2 mg Q10MIN PRN Administration Sedation Senna/Docusate Sodium 2 tab 09/19/20 12:00 09/20/20 09:06 Sennosides/Docusate Sodium 8.6/50 Mg Tab PO 2 tab BID ISIAH Administration Simple Syrup 15 ml 09/11/20 11:45 Simple Syrup 15 Ml FEEDTUBE PRN PRN Hypoglycemia Simple Syrup 30 ml 09/11/20 11:45 Simple Syrup 15 Ml FEEDTUBE PRN PRN Hypoglycemia Sodium Bicarbonate 325 mg 09/11/20 11:45 Sodium Bicarbonate 325 Mg Tab FEEDTUBE PRN PRN For Clogged Feeding Tube Sodium Chloride 10 ml 09/08/20 22:00 09/20/20 09:07 Sodium Chloride 0.9% 10 Ml Flush Syringe IV 10 ml BID ISIAH Administration Sodium Chloride 10 ml 09/08/20 20:23 Sodium Chloride 0.9% 10 Ml Flush Syringe IV PRN PRN LINE FLUSH Zinc Sulfate 220 mg 09/08/20 22:00 09/20/20 09:07 Zinc Sulfate 220 Mg Cap PO 220 mg BID ISIAH Administration
--- NOTE | 2020-09-20 14:52 | Progress Note ---
Assessment and Plan Cultures: SARS CoV2 PCR: Positive 09/08/2020 blood culture: No growth 09/08/2020 urine culture: Usual skin stefania A/P: 75-year-old female with hypertension, diabetes, obesity hypoventilation syndrome was admitted to the hospital with cough, shortness of breath, not feeling well: #Shock, likely septic: no clear evidence of bacterial infection. Completed empiric CAP coverage. Probably related to severe/critical COVID. Rise in procal now probably from renal failure. #Bilateral COVID-19 pneumonia: critical disease. Remdesivir was discontinued due to worsening renal failure. #Coagulase-negative staph bacteremia: In 1 set contaminant. #Acute hypoxic respiratory failure: On the vent with very high requirements. #Morbid obesity #Hypertension, diabetes #Leukopenia, mild thrombocytopenia, transaminitis: Likely related to COVID-19 #NICOLASA: worse, now requiring dialysis. Recs: -Patient now with increasing pressor requirements continue empiric broad- spectrum antibiotics: Cefepime, fluconazole. Stopped vancomycin, no evidence of MRSA on cultures. -Follow-up culture data -continue steroids, higher dose due to morbid obesity. -Worsening inflammatory markers -> ?worsening ARDS, ?HLH -IV Tocilizumab administered 09/12/2020 (remdesivir course was not completed due to worsening renal failure) -significantly high d-dimer, agree with anticoagulation -very poor prognosis Trang Narayanan MD [facility] O: [phone] F: [phone] Subjective Date of service: 09/20/20 Principal diagnosis: Ac hypoxemic resp failure; ARDS; COVID-19 infxn; PNA; DM II; Obesity Interval history: Remains persistently febrile to 103.2 with a white count 25.1 continues to worsen. Objective - Exam Narrative Exam: Physical exam deferred to reduce risk of transmission of COVID-19. Please refer to primary team's note. - Constitutional Vitals: Vital Signs Temp Pulse Resp BP Pulse Ox 100.5 F H 125 H 30 H 114/59 96 09/20/20 12:00 09/20/20 13:15 09/20/20 13:15 09/20/20 13:15 09/20/20 13:15 Temperature -Last 24 Hours Temperature 100.5 F Temperature 102.5 F Temperature 103.2 F Temperature 100.1 F Temperature 103.1 F - Labs CBC & Chem 7: 09/20/20 08:00 09/20/20 08:00 Labs: Abnormal lab results 09/19/20 09/19/20 09/20/20 Range/Units 17:34 23:59 03:01 WBC (4.5-11.0) K/mm3 RBC (3.65-5.03) M/mm3 Hgb (10.1-14.3) gm/dl RDW (13.2-15.2) % ABG pH 7.186 L (7.320-7.450) POC ABG pCO2 54.5 H (32.0-48.0) mmHg POC ABG pO2 118.4 H (83-108) mmHg ABG Hemoglobin 10.8 L (12.0-17.5) ABG Potassium 5.1 H (3.40-4.50) mmol/L ABG Glucose 193 H (65-95) mg/dL Potassium (3.6-5.0) mmol/L BUN (7-17) mg/dL Creatinine (0.6-1.2) mg/dL Glucose (65-100) mg/dL POC Glucose 131 H 147 H (70-105) mg/dL Calcium (8.4-10.2) mg/dL Arterial Blood Glucose 193 H (65-95) mg/dL Arterial Blood Ionized Calcium 4.4 L (4.6-5.3) mg/dL 09/20/20 09/20/20 09/20/20 Range/Units 05:35 08:00 08:00 WBC 25.1 H (4.5-11.0) K/mm3 RBC 3.22 L (3.65-5.03) M/mm3 Hgb 10.0 L (10.1-14.3) gm/dl RDW 15.5 H (13.2-15.2) % ABG pH (7.320-7.450) POC ABG pCO2 (32.0-48.0) mmHg POC ABG pO2 (83-108) mmHg ABG Hemoglobin (12.0-17.5) ABG Potassium (3.40-4.50) mmol/L ABG Glucose (65-95) mg/dL Potassium 5.4 H (3.6-5.0) mmol/L BUN 98 H (7-17) mg/dL Creatinine 5.9 H (0.6-1.2) mg/dL Glucose 184 H (65-100) mg/dL POC Glucose 188 H (70-105) mg/dL Calcium 8.1 L (8.4-10.2) mg/dL Arterial Blood Glucose (65-95) mg/dL Arterial Blood Ionized Calcium (4.6-5.3) mg/dL 09/20/20 Range/Units 11:36 WBC (4.5-11.0) K/mm3 RBC (3.65-5.03) M/mm3 Hgb (10.1-14.3) gm/dl RDW (13.2-15.2) % ABG pH (7.320-7.450) POC ABG pCO2 (32.0-48.0) mmHg POC ABG pO2 (83-108) mmHg ABG Hemoglobin (12.0-17.5) ABG Potassium (3.40-4.50) mmol/L ABG Glucose (65-95) mg/dL Potassium (3.6-5.0) mmol/L BUN (7-17) mg/dL Creatinine (0.6-1.2) mg/dL Glucose (65-100) mg/dL POC Glucose 158 H (70-105) mg/dL Calcium (8.4-10.2) mg/dL Arterial Blood Glucose (65-95) mg/dL Arterial Blood Ionized Calcium (4.6-5.3) mg/dL
[2020-09-20] MEDS: NORepinephrine/NS 8 MG-250 ML 8 MG/250 ML INFUS..BTL IV SCH (15:36)
[2020-09-20] MEDS: FLUCONAZOLE 200 MG 200 MG/100 ML BAG IV SCH (15:36)
--- NOTE | 2020-09-20 16:17 | Progress Note ---
Assessment and Plan Acute hypoxemic respiratory failure Acute respiratory distress syndrome COVID-19 infection Bilateral pneumonia Severe Sepsis Thrombocytopenia Diabetes Hypertension Obesity Leukopenia Elevated serum inflammatory markers to include D-dimer, ferritin and LDH - reduced peep to 18 cm H2O - repeat CBC in am re: platelet count (transfuse for < 20k) - increased Reglan to 10 mg IV q8h - pull malfunctioning A-line - HD/UF per nephrology prescription for toxin and volume clearance - follow HIT assay - continue to hold proning re: risk of decompensation and especially at time of un-proning which has been met with severe worsening of hypoxemia; also she is showing improvement with avoidance of supine position as much as possible - continue care as below otherwise; - continue HD/UF for toxin and volume clearance - repeat CBC in am re: thrombocytopenia - continue to wean vasopressors for target MAP > 65 mmHg - continue chacon catheter for strict I's & O's - continue Daily SAT and SBT assessment as tolerated - continue to wean supplemental oxygen for target O2 sat's > 90% acutely - VAP bundle addressed - continue lung protective strategies - continue bronchodilators with pulmonary hygiene per RT - wean per pulmonary driven protocols otherwise - avoid nephrotoxins, renally dose all medications - continue accuchecks with glycemic control per SSI (While critically ill target blood glucose of 140-180 mg/dL; avoid hypoglycemia) - sedation prn for target RASS 0 to -1 - continue to avoid benzodiazepine's, reduce the possibility of delirium - complete AB's per ID rec's - prn analgesia per CPOT score - Maintenance of sleep-wake cycle, avoid delirium - continue enteral nutritional support at goal rate as tolerated - G.I. & VTE prophylaxis - PT/OT/ROM exercises - continue mobility protocols for pressure ulcer prophylaxis - Monitor hemodynamics closely - continue other care per attending / other consultants - discharge planning ongoing concurrently COVID SPECIFIC INTERVENTIONS - Remdesivir as per ID/Pulmonary developed protocols (ordered) - to receive Actemra - continue systemic steroids for severe COVID-19 infection empirically - follow repeat COVID tests results - zinc and vitamin C supplementation - Monitor inflammatory markers per facility protocol - ferritin, Ddimer, CRP - therapeutic anticoagulation per system Protocol based on d-dimer and clinical considerations - Continue contact and airborne isolation .... Re-evaluate in am & prn CONDITION: CRITICAL PROGNOSIS: GUARDED CODE STATUS: FULL CODE The high probability of a clinically significant, sudden or life-threatening deterioration of the [respiratory, cardiovascular & neurologic] system(s) required my full and direct attention, intervention and personal management. The aggregate critical care time was [35] minutes without overlap. Time includes spent on; [x] Data Review and interpretation [x] Patient assessment and monitoring of vital signs [x] Documentation [x] Medication orders and management Subjective Date of service: 09/20/20 Principal diagnosis: Ac hypoxemic resp failure; ARDS; COVID-19 infxn; PNA; DM II; Obesity Interval history: Patient is seen today for: Ac hypoxemic resp failure; ARDS; COVID-19 infxn; PNA; DM II; Obesity Seen and examined at bedside; 24hour events reviewed; nursing and respiratory care staff consulted; no adverse overnight events reported to me; resting in bed; remains on MVS; oxygenation with slight improvement overnight; proning held re: hemodynamic instability; still with high gastric residuals and Reglan dose increased Objective Vital Signs - 12hr 09/20/20 09/20/20 09/20/20 04:30 04:45 05:00 Temperature Pulse Rate 115 H 115 H 116 H Respiratory 30 H 30 H 30 H Rate Blood Pressure 97/53 93/57 100/55 O2 Sat by Pulse 97 99 99 Oximetry 09/20/20 09/20/20 09/20/20 05:15 05:30 05:34 Temperature Pulse Rate 117 H 118 H Respiratory 30 H 31 H Rate Blood Pressure 102/57 97/58 O2 Sat by Pulse 98 98 99 Oximetry 09/20/20 09/20/20 09/20/20 05:45 06:00 06:15 Temperature Pulse Rate 119 H 117 H 118 H Respiratory 31 H 30 H 30 H Rate Blood Pressure 116/58 106/53 117/56 O2 Sat by Pulse 100 100 100 Oximetry 09/20/20 09/20/20 09/20/20 06:30 06:45 07:00 Temperature Pulse Rate 116 H 119 H 118 H Respiratory 30 H 30 H 30 H Rate Blood Pressure 104/54 104/50 103/52 O2 Sat by Pulse 100 97 97 Oximetry 09/20/20 09/20/20 09/20/20 07:15 07:30 07:45 Temperature Pulse Rate 119 H 119 H 119 H Respiratory 30 H 30 H 30 H Rate Blood Pressure 104/51 110/53 99/51 O2 Sat by Pulse 96 97 98 Oximetry 08/04/21 08/04/21 08/04/21 08:00 08:15 08:28 Temperature 102.5 F H Pulse Rate 122 H 124 H 116 H Respiratory 30 H 14 Rate Blood Pressure 98/53 104/51 104/54 O2 Sat by Pulse 97 90 100 Oximetry 09/20/20 09/20/20 09/20/20 08:30 08:45 09:00 Temperature Pulse Rate 122 H 123 H 124 H Respiratory 30 H 30 H 30 H Rate Blood Pressure 113/56 122/59 118/59 O2 Sat by Pulse 92 94 94 Oximetry 09/20/20 09/20/20 09/20/20 09:15 09:30 09:45 Temperature Pulse Rate 126 H 127 H 126 H Respiratory 28 H 32 H 31 H Rate Blood Pressure 128/64 136/61 128/64 O2 Sat by Pulse 96 96 96 Oximetry 09/20/20 09/20/20 09/20/20 10:00 10:15 10:30 Temperature Pulse Rate 126 H 125 H 125 H Respiratory 31 H 30 H 30 H Rate Blood Pressure 125/60 120/60 128/61 O2 Sat by Pulse 97 97 95 Oximetry 09/20/20 09/20/20 09/20/20 10:45 11:00 11:15 Temperature Pulse Rate 125 H 124 H 123 H Respiratory 32 H 32 H 30 H Rate Blood Pressure 111/57 116/57 109/58 O2 Sat by Pulse 97 97 96 Oximetry 09/20/20 09/20/20 09/20/20 11:30 11:33 11:45 Temperature Pulse Rate 123 H 116 H 124 H Respiratory 30 H 30 H Rate Blood Pressure 114/57 104/54 110/60 O2 Sat by Pulse 95 100 98 Oximetry 09/20/20 09/20/20 09/20/20 12:00 12:15 12:30 Temperature 100.5 F H Pulse Rate 124 H 123 H 123 H Respiratory 30 H 30 H 30 H Rate Blood Pressure 114/60 114/58 127/59 O2 Sat by Pulse 96 98 97 Oximetry 09/20/20 09/20/20 09/20/20 12:45 13:00 13:15 Temperature Pulse Rate 124 H 127 H 125 H Respiratory 31 H 27 H 30 H Rate Blood Pressure 123/62 114/60 114/59 O2 Sat by Pulse 99 98 96 Oximetry 09/20/20 15:52 Temperature Pulse Rate 125 H Respiratory Rate Blood Pressure 114/59 O2 Sat by Pulse 96 Oximetry Constitutional: appears uncomfortable, other (elderly obese female with mildly increased respiratory effort at rest on MVS) Eyes: non-icteric ENT: oropharynx moist, other (ETT 24 cm STEVEN) Neck: supple, other (large circumference) Effort: mildly labored Ascultation: Bilateral: diminished breath sounds, rhonchi Percussion: Bilateral: not dull Cardiovascular: regular rate and rhythm Gastrointestinal: normoactive bowel sounds, soft, non-tender, non-distended (protuberant) Integumentary: other (some excoriation to skin of face) Extremities: no cyanosis, pulses normal, no ischemia or petechiae, edema (1+) Neurologic: pupils equal and round, motor strength normal and, unable to assess, other (sedated) Psychiatric: other (unable to assess) CBC and BMP: 09/21/20 04:45 09/21/20 04:45 ABG, PT/INR, D-dimer: ABG ABG pH 7.186 (7.320-7.450) L 09/20/20 03:01 POC ABG pCO2 54.5 mmHg (32.0-48.0) H 09/20/20 03:01 POC ABG pO2 118.4 mmHg (83-108) H 09/20/20 03:01 POC ABG HCO3 20.2 09/20/20 03:01 ABG O2 Saturation 97.8 (0-100) 09/20/20 03:01 PT/INR, D-dimer PT 18.8 Sec. (12.2-14.9) H 09/15/20 14:00 INR 1.52 (0.87-1.13) H 09/15/20 14:00 D-Dimer > 71129 ng/mlDDU (0-234) H 09/19/20 05:12 Abnormal lab findings: Abnormal Labs 09/08/20 09/08/20 09/08/20 17:37 17:37 17:37 WBC 4.3 L RBC Hgb Hct RDW Plt Count 106 L Lymph % (Auto) [place] % (Auto) 7.5 H Lymph # (Auto) 0.6 L Seg Neutrophils % 77.4 H Seg Neuts % (Manual) Lymphocytes % (Manual) Seg Neutrophils # Seg Neutrophils # Man Lymphocytes # (Manual) PT INR D-Dimer 741.67 H Heparin Anti-Xa Level ABG pH POC ABG pCO2 POC ABG pO2 ABG Hemoglobin ABG Oxyhemoglobin ABG Sodium ABG Potassium ABG Chloride ABG Glucose Carboxyhemoglobin Sodium 129 L Potassium Chloride 91.9 L Carbon Dioxide BUN 32 H Creatinine 1.5 H Glucose 200 H POC Glucose Calcium 8.1 L Phosphorus Magnesium Ferritin AST 49 H Lactate Dehydrogenase C-Reactive Protein Total Protein Albumin 2.7 L TSH Arterial Blood Glucose Arterial Blood Ionized Calcium Ur Specific [place] Urine Creatinine Coronavirus (PCR) 09/08/20 09/08/20 09/08/20 17:37 17:37 22:24 WBC RBC Hgb Hct RDW Plt Count Lymph % (Auto) [place] % (Auto) Lymph # (Auto) Seg Neutrophils % Seg Neuts % (Manual) Lymphocytes % (Manual) Seg Neutrophils # Seg Neutrophils # Man Lymphocytes # (Manual) PT INR D-Dimer Heparin Anti-Xa Level ABG pH POC ABG pCO2 POC ABG pO2 ABG Hemoglobin ABG Oxyhemoglobin ABG Sodium ABG Potassium ABG Chloride ABG Glucose Carboxyhemoglobin Sodium Potassium Chloride Carbon Dioxide BUN Creatinine Glucose 201 H POC Glucose Calcium Phosphorus Magnesium Ferritin 731.2 H AST Lactate Dehydrogenase 396 H C-Reactive Protein 7.00 H Total Protein Albumin TSH Arterial Blood Glucose Arterial Blood Ionized Calcium Ur Specific [place] 1.035 H Urine Creatinine Coronavirus (PCR) 09/08/20 09/09/20 09/09/20 23:35 07:30 08:28 WBC 3.4 L RBC Hgb 15.5 H Hct 47.1 H RDW Plt Count 95 L Lymph % (Auto) 9.5 L [place] % (Auto) Lymph # (Auto) 0.3 L Seg Neutrophils % 85.2 H Seg Neuts % (Manual) Lymphocytes % (Manual) Seg Neutrophils # Seg Neutrophils # Man Lymphocytes # (Manual) PT INR D-Dimer Heparin Anti-Xa Level ABG pH POC ABG pCO2 POC ABG pO2 ABG Hemoglobin ABG Oxyhemoglobin ABG Sodium ABG Potassium ABG Chloride ABG Glucose Carboxyhemoglobin Sodium Potassium Chloride Carbon Dioxide BUN Creatinine Glucose POC Glucose 188 H 281 H Calcium Phosphorus Magnesium Ferritin AST Lactate Dehydrogenase C-Reactive Protein Total Protein Albumin TSH Arterial Blood Glucose Arterial Blood Ionized Calcium Ur Specific [place] Urine Creatinine Coronavirus (PCR) 09/09/20 09/09/20 09/09/20 08:28 09:00 11:48 WBC RBC Hgb Hct RDW Plt Count Lymph % (Auto) [place] % (Auto) Lymph # (Auto) Seg Neutrophils % Seg Neuts % (Manual) Lymphocytes % (Manual) Seg Neutrophils # Seg Neutrophils # Man Lymphocytes # (Manual) PT INR D-Dimer Heparin Anti-Xa Level ABG pH POC ABG pCO2 POC ABG pO2 ABG Hemoglobin ABG Oxyhemoglobin ABG Sodium ABG Potassium ABG Chloride ABG Glucose Carboxyhemoglobin Sodium 130 L Potassium Chloride 93.5 L Carbon Dioxide BUN 31 H Creatinine 1.3 H Glucose 266 H POC Glucose 354 H Calcium Phosphorus Magnesium Ferritin AST 48 H Lactate Dehydrogenase C-Reactive Protein Total Protein Albumin 2.8 L TSH Arterial Blood Glucose Arterial Blood Ionized Calcium Ur Specific [place] Urine Creatinine Coronavirus (PCR) Positive A 09/09/20 09/09/20 09/10/20 17:21 21:15 08:00 WBC RBC Hgb Hct RDW Plt Count Lymph % (Auto) [place] % (Auto) Lymph # (Auto) Seg Neutrophils % Seg Neuts % (Manual) Lymphocytes % (Manual) Seg Neutrophils # Seg Neutrophils # Man Lymphocytes # (Manual) PT INR D-Dimer Heparin Anti-Xa Level ABG pH POC ABG pCO2 POC ABG pO2 ABG Hemoglobin ABG Oxyhemoglobin ABG Sodium ABG Potassium ABG Chloride ABG Glucose Carboxyhemoglobin Sodium Potassium Chloride Carbon Dioxide BUN Creatinine Glucose POC Glucose 332 H 226 H 240 H Calcium Phosphorus Magnesium Ferritin AST Lactate Dehydrogenase C-Reactive Protein Total Protein Albumin TSH Arterial Blood Glucose Arterial Blood Ionized Calcium Ur Specific [place] Urine Creatinine Coronavirus (PCR) 09/10/20 09/10/20 09/10/20 12:12 15:14 16:43 WBC RBC Hgb Hct RDW Plt Count Lymph % (Auto) [place] % (Auto) Lymph # (Auto) Seg Neutrophils % Seg Neuts % (Manual) Lymphocytes % (Manual) Seg Neutrophils # Seg Neutrophils # Man Lymphocytes # (Manual) PT INR D-Dimer Heparin Anti-Xa Level ABG pH POC ABG pCO2 48.5 H POC ABG pO2 51.9 L ABG Hemoglobin ABG Oxyhemoglobin 85.1 L ABG Sodium 135.6 L ABG Potassium ABG Chloride ABG Glucose 310 H Carboxyhemoglobin Sodium 132 L Potassium Chloride 93.2 L Carbon Dioxide BUN 43 H Creatinine 1.6 H Glucose 277 H POC Glucose 267 H Calcium Phosphorus Magnesium Ferritin AST 49 H Lactate Dehydrogenase C-Reactive Protein Total Protein 8.3 H Albumin 3.0 L TSH Arterial Blood Glucose 310 H Arterial Blood Ionized Calcium Ur Specific [place] Urine Creatinine Coronavirus (PCR) 09/10/20 09/10/20 09/11/20 21:34 23:33 05:56 WBC RBC Hgb Hct RDW Plt Count Lymph % (Auto) [place] % (Auto) Lymph # (Auto) Seg Neutrophils % Seg Neuts % (Manual) Lymphocytes % (Manual) Seg Neutrophils # Seg Neutrophils # Man Lymphocytes # (Manual) PT INR D-Dimer Heparin Anti-Xa Level ABG pH POC ABG pCO2 POC ABG pO2 ABG Hemoglobin ABG Oxyhemoglobin ABG Sodium 135.9 L ABG Potassium ABG Chloride ABG Glucose 341 H Carboxyhemoglobin Sodium 133 L Potassium Chloride 94.2 L Carbon Dioxide BUN 54 H Creatinine 1.6 H Glucose 318 H POC Glucose 306 H Calcium Phosphorus Magnesium Ferritin AST 46 H Lactate Dehydrogenase C-Reactive Protein Total Protein Albumin 2.7 L TSH Arterial Blood Glucose 341 H Arterial Blood Ionized Calcium 4.5 L Ur Specific [place] Urine Creatinine Coronavirus (PCR) 09/11/20 09/11/20 09/11/20 05:56 07:22 09:00 WBC RBC Hgb Hct RDW Plt Count Lymph % (Auto) [place] % (Auto) Lymph # (Auto) Seg Neutrophils % Seg Neuts % (Manual) Lymphocytes % (Manual) Seg Neutrophils # Seg Neutrophils # Man Lymphocytes # (Manual) PT INR D-Dimer Heparin Anti-Xa Level ABG pH POC ABG pCO2 POC ABG pO2 80.1 L ABG Hemoglobin ABG Oxyhemoglobin ABG Sodium 134.5 L ABG Potassium ABG Chloride ABG Glucose 334 H Carboxyhemoglobin Sodium Potassium Chloride Carbon Dioxide BUN Creatinine Glucose POC Glucose 305 H Calcium Phosphorus Magnesium Ferritin AST Lactate Dehydrogenase 755 H C-Reactive Protein 5.50 H Total Protein Albumin TSH Arterial Blood Glucose 334 H Arterial Blood Ionized Calcium Ur Specific [place] Urine Creatinine Coronavirus (PCR) 09/11/20 09/11/20 09/11/20 11:33 18:17 19:00 WBC RBC Hgb Hct RDW Plt Count Lymph % (Auto) [place] % (Auto) Lymph # (Auto) Seg Neutrophils % Seg Neuts % (Manual) Lymphocytes % (Manual) Seg Neutrophils # Seg Neutrophils # Man Lymphocytes # (Manual) PT INR D-Dimer Heparin Anti-Xa Level ABG pH POC ABG pCO2 POC ABG pO2 146.4 H ABG Hemoglobin ABG Oxyhemoglobin 98.3 H ABG Sodium ABG Potassium ABG Chloride ABG Glucose 267 H Carboxyhemoglobin 0.4 L Sodium Potassium Chloride Carbon Dioxide BUN Creatinine Glucose POC Glucose 304 H 296 H Calcium Phosphorus Magnesium Ferritin AST Lactate Dehydrogenase C-Reactive Protein Total Protein Albumin TSH Arterial Blood Glucose 267 H Arterial Blood Ionized Calcium Ur Specific [place] Urine Creatinine Coronavirus (PCR) 09/11/20 09/11/20 09/11/20 20:30 22:23 Unknown WBC RBC Hgb Hct RDW Plt Count Lymph % (Auto) [place] % (Auto) Lymph # (Auto) Seg Neutrophils % Seg Neuts % (Manual) Lymphocytes % (Manual) Seg Neutrophils # Seg Neutrophils # Man Lymphocytes # (Manual) PT INR D-Dimer 1324.85 H Heparin Anti-Xa Level ABG pH POC ABG pCO2 POC ABG pO2 ABG Hemoglobin ABG Oxyhemoglobin ABG Sodium ABG Potassium ABG Chloride ABG Glucose Carboxyhemoglobin Sodium Potassium Chloride Carbon Dioxide BUN Creatinine Glucose POC Glucose 268 H Calcium Phosphorus Magnesium Ferritin 1434.0 H AST Lactate Dehydrogenase C-Reactive Protein Total Protein Albumin TSH Arterial Blood Glucose Arterial Blood Ionized Calcium Ur Specific [place] Urine Creatinine Coronavirus (PCR) 09/11/20 09/12/20 09/12/20 Unknown 04:00 05:30 WBC RBC Hgb Hct RDW Plt Count Lymph % (Auto) [place] % (Auto) Lymph # (Auto) Seg Neutrophils % Seg Neuts % (Manual) Lymphocytes % (Manual) Seg Neutrophils # Seg Neutrophils # Man Lymphocytes # (Manual) PT INR D-Dimer Heparin Anti-Xa Level ABG pH POC ABG pCO2 POC ABG pO2 190.7 H ABG Hemoglobin 17.7 H ABG Oxyhemoglobin 98.9 H ABG Sodium ABG Potassium ABG Chloride ABG Glucose 322 H Carboxyhemoglobin 0.2 L Sodium Potassium Chloride Carbon Dioxide BUN 58 H Creatinine 1.8 H Glucose 279 H POC Glucose 313 H Calcium 7.9 L Phosphorus Magnesium Ferritin AST Lactate Dehydrogenase C-Reactive Protein Total Protein Albumin TSH Arterial Blood Glucose 322 H Arterial Blood Ionized Calcium Ur Specific [place] Urine Creatinine Coronavirus (PCR) 09/12/20 09/12/20 09/12/20 08:43 11:58 13:30 WBC RBC Hgb Hct RDW Plt Count Lymph % (Auto) [place] % (Auto) Lymph # (Auto) Seg Neutrophils % Seg Neuts % (Manual) Lymphocytes % (Manual) Seg Neutrophils # Seg Neutrophils # Man Lymphocytes # (Manual) PT INR D-Dimer Heparin Anti-Xa Level ABG pH POC ABG pCO2 POC ABG pO2 ABG Hemoglobin ABG Oxyhemoglobin ABG Sodium ABG Potassium ABG Chloride ABG Glucose Carboxyhemoglobin Sodium Potassium Chloride Carbon Dioxide BUN 51 H Creatinine 1.4 H Glucose 317 H POC Glucose 329 H Calcium Phosphorus Magnesium Ferritin AST Lactate Dehydrogenase C-Reactive Protein Total Protein Albumin 3.0 L TSH Arterial Blood Glucose Arterial Blood Ionized Calcium Ur Specific [place] Urine Creatinine 43.2 H Coronavirus (PCR) 09/12/20 09/12/20 09/12/20 17:17 17:17 17:55 WBC RBC Hgb 14.5 H Hct 43.5 H RDW Plt Count Lymph % (Auto) [place] % (Auto) Lymph # (Auto) Seg Neutrophils % Seg Neuts % (Manual) 96.0 H Lymphocytes % (Manual) 1.0 L Seg Neutrophils # Seg Neutrophils # Man 9.8 H Lymphocytes # (Manual) 0.1 L PT INR D-Dimer Heparin Anti-Xa Level ABG pH POC ABG pCO2 POC ABG pO2 ABG Hemoglobin ABG Oxyhemoglobin ABG Sodium ABG Potassium ABG Chloride ABG Glucose Carboxyhemoglobin Sodium Potassium Chloride Carbon Dioxide BUN Creatinine Glucose POC Glucose 425 H Calcium Phosphorus Magnesium Ferritin AST Lactate Dehydrogenase C-Reactive Protein Total Protein Albumin TSH 0.067 L Arterial Blood Glucose Arterial Blood Ionized Calcium Ur Specific [place] Urine Creatinine Coronavirus (PCR) 09/12/20 09/13/20 09/13/20 23:19 03:32 04:22 WBC RBC Hgb Hct RDW Plt Count Lymph % (Auto) [place] % (Auto) Lymph # (Auto) Seg Neutrophils % Seg Neuts % (Manual) Lymphocytes % (Manual) Seg Neutrophils # Seg Neutrophils # Man Lymphocytes # (Manual) PT INR D-Dimer Heparin Anti-Xa Level ABG pH 7.276 L 7.275 L POC ABG pCO2 54.0 H 54.7 H POC ABG pO2 46.6 L 47.1 L ABG Hemoglobin ABG Oxyhemoglobin 78.9 L 79.4 L ABG Sodium ABG Potassium ABG Chloride ABG Glucose 260 H 261 H Carboxyhemoglobin Sodium Potassium Chloride Carbon Dioxide BUN Creatinine Glucose POC Glucose 348 H Calcium Phosphorus Magnesium Ferritin AST Lactate Dehydrogenase C-Reactive Protein Total Protein Albumin TSH Arterial Blood Glucose 260 H 261 H Arterial Blood Ionized Calcium Ur Specific [place] Urine Creatinine Coronavirus (PCR) 09/13/20 09/13/20 09/13/20 04:52 11:53 17:13 WBC RBC Hgb Hct RDW Plt Count Lymph % (Auto) [place] % (Auto) Lymph # (Auto) Seg Neutrophils % Seg Neuts % (Manual) Lymphocytes % (Manual) Seg Neutrophils # Seg Neutrophils # Man Lymphocytes # (Manual) PT INR D-Dimer Heparin Anti-Xa Level ABG pH POC ABG pCO2 POC ABG pO2 ABG Hemoglobin ABG Oxyhemoglobin ABG Sodium ABG Potassium ABG Chloride ABG Glucose Carboxyhemoglobin Sodium Potassium Chloride Carbon Dioxide BUN Creatinine Glucose POC Glucose 229 H 302 H 356 H Calcium Phosphorus Magnesium Ferritin AST Lactate Dehydrogenase C-Reactive Protein Total Protein Albumin TSH Arterial Blood Glucose Arterial Blood Ionized Calcium Ur Specific [place] Urine Creatinine Coronavirus (PCR) 09/13/20 09/13/20 09/13/20 23:46 Unknown Unknown WBC RBC Hgb Hct RDW Plt Count 135 L Lymph % (Auto) [place] % (Auto) Lymph # (Auto) Seg Neutrophils % Seg Neuts % (Manual) Lymphocytes % (Manual) Seg Neutrophils # Seg Neutrophils # Man Lymphocytes # (Manual) PT INR D-Dimer Heparin Anti-Xa Level ABG pH POC ABG pCO2 POC ABG pO2 ABG Hemoglobin ABG Oxyhemoglobin ABG Sodium ABG Potassium ABG Chloride ABG Glucose Carboxyhemoglobin Sodium Potassium Chloride Carbon Dioxide BUN 54 H Creatinine 1.6 H Glucose 255 H POC Glucose 263 H Calcium Phosphorus Magnesium Ferritin AST Lactate Dehydrogenase C-Reactive Protein Total Protein Albumin 2.8 L TSH Arterial Blood Glucose Arterial Blood Ionized Calcium Ur Specific [place] Urine Creatinine Coronavirus (PCR) 09/14/20 09/14/20 09/14/20 05:46 10:53 10:53 WBC RBC Hgb Hct RDW Plt Count Lymph % (Auto) [place] % (Auto) Lymph # (Auto) Seg Neutrophils % Seg Neuts % (Manual) Lymphocytes % (Manual) Seg Neutrophils # Seg Neutrophils # Man Lymphocytes # (Manual) PT INR D-Dimer > 59005 H Heparin Anti-Xa Level ABG pH POC ABG pCO2 POC ABG pO2 ABG Hemoglobin ABG Oxyhemoglobin ABG Sodium ABG Potassium ABG Chloride ABG Glucose Carboxyhemoglobin Sodium Potassium Chloride Carbon Dioxide BUN 71 H Creatinine 2.8 H D Glucose 167 H POC Glucose 226 H Calcium Phosphorus 4.90 H D Magnesium 2.40 H Ferritin AST Lactate Dehydrogenase C-Reactive Protein 5.40 H Total Protein 5.9 L Albumin 2.7 L TSH Arterial Blood Glucose Arterial Blood Ionized Calcium Ur Specific [place] Urine Creatinine Coronavirus (PCR) 09/14/20 09/14/20 09/14/20 11:33 13:45 17:29 WBC RBC Hgb Hct RDW Plt Count Lymph % (Auto) [place] % (Auto) Lymph # (Auto) Seg Neutrophils % Seg Neuts % (Manual) Lymphocytes % (Manual) Seg Neutrophils # Seg Neutrophils # Man Lymphocytes # (Manual) PT INR D-Dimer Heparin Anti-Xa Level ABG pH 7.225 L POC ABG pCO2 60.1 H POC ABG pO2 ABG Hemoglobin ABG Oxyhemoglobin ABG Sodium ABG Potassium 5.2 H ABG Chloride 109.0 H ABG Glucose 205 H Carboxyhemoglobin Sodium Potassium Chloride Carbon Dioxide BUN Creatinine Glucose POC Glucose 166 H 202 H Calcium Phosphorus Magnesium Ferritin AST Lactate Dehydrogenase C-Reactive Protein Total Protein Albumin TSH Arterial Blood Glucose 205 H Arterial Blood Ionized Calcium Ur Specific [place] Urine Creatinine Coronavirus (PCR) 09/15/20 09/15/20 09/15/20 00:19 03:10 03:10 WBC 13.5 H RBC Hgb Hct RDW Plt Count 77 L Lymph % (Auto) 3.9 L [place] % (Auto) Lymph # (Auto) 0.5 L Seg Neutrophils % 89.9 H Seg Neuts % (Manual) Lymphocytes % (Manual) Seg Neutrophils # 12.1 H Seg Neutrophils # Man Lymphocytes # (Manual) PT INR D-Dimer Heparin Anti-Xa Level ABG pH POC ABG pCO2 POC ABG pO2 ABG Hemoglobin ABG Oxyhemoglobin ABG Sodium ABG Potassium ABG Chloride ABG Glucose Carboxyhemoglobin Sodium Potassium 5.7 H Chloride 107.7 H Carbon Dioxide 21 L BUN 85 H Creatinine 4.1 H Glucose 166 H POC Glucose 174 H Calcium Phosphorus Magnesium Ferritin AST Lactate Dehydrogenase C-Reactive Protein Total Protein 5.9 L Albumin 2.3 L TSH Arterial Blood Glucose Arterial Blood Ionized Calcium Ur Specific [place] Urine Creatinine Coronavirus (PCR) 09/15/20 09/15/20 09/15/20 03:10 03:10 05:34 WBC RBC Hgb Hct RDW Plt Count Lymph % (Auto) [place] % (Auto) Lymph # (Auto) Seg Neutrophils % Seg Neuts % (Manual) Lymphocytes % (Manual) Seg Neutrophils # Seg Neutrophils # Man Lymphocytes # (Manual) PT INR D-Dimer > 29388 H Heparin Anti-Xa Level ABG pH POC ABG pCO2 POC ABG pO2 ABG Hemoglobin ABG Oxyhemoglobin ABG Sodium ABG Potassium ABG Chloride ABG Glucose Carboxyhemoglobin Sodium Potassium Chloride Carbon Dioxide BUN Creatinine Glucose POC Glucose 146 H Calcium Phosphorus 6.50 H D Magnesium 2.40 H Ferritin AST Lactate Dehydrogenase C-Reactive Protein 3.90 H Total Protein Albumin TSH Arterial Blood Glucose Arterial Blood Ionized Calcium Ur Specific [place] Urine Creatinine Coronavirus (PCR) 09/15/20 09/15/20 09/15/20 06:12 12:30 13:25 WBC RBC Hgb Hct RDW Plt Count Lymph % (Auto) [place] % (Auto) Lymph # (Auto) Seg Neutrophils % Seg Neuts % (Manual) Lymphocytes % (Manual) Seg Neutrophils # Seg Neutrophils # Man Lymphocytes # (Manual) PT INR D-Dimer Heparin Anti-Xa Level ABG pH 7.178 L POC ABG pCO2 58.7 H POC ABG pO2 65.2 L ABG Hemoglobin ABG Oxyhemoglobin 90.5 L ABG Sodium ABG Potassium 5.1 H ABG Chloride 110.0 H ABG Glucose 173 H Carboxyhemoglobin Sodium Potassium 5.5 H 5.4 H Chloride 108.0 H Carbon Dioxide BUN 87 H 89 H Creatinine 4.3 H 4.2 H Glucose 151 H 180 H POC Glucose Calcium 8.2 L Phosphorus 6.70 H Magnesium Ferritin AST Lactate Dehydrogenase C-Reactive Protein Total Protein Albumin TSH Arterial Blood Glucose 173 H Arterial Blood Ionized Calcium Ur Specific [place] Urine Creatinine Coronavirus (PCR) 09/15/20 09/15/20 09/15/20 13:33 14:00 14:00 WBC RBC Hgb Hct RDW Plt Count 86 L Lymph % (Auto) [place] % (Auto) Lymph # (Auto) Seg Neutrophils % Seg Neuts % (Manual) Lymphocytes % (Manual) Seg Neutrophils # Seg Neutrophils # Man Lymphocytes # (Manual) PT 18.8 H INR 1.52 H D-Dimer Heparin Anti-Xa Level ABG pH POC ABG pCO2 POC ABG pO2 ABG Hemoglobin ABG Oxyhemoglobin ABG Sodium ABG Potassium ABG Chloride ABG Glucose Carboxyhemoglobin Sodium Potassium Chloride Carbon Dioxide BUN Creatinine Glucose POC Glucose 146 H Calcium Phosphorus Magnesium Ferritin AST Lactate Dehydrogenase C-Reactive Protein Total Protein Albumin TSH Arterial Blood Glucose Arterial Blood Ionized Calcium Ur Specific [place] Urine Creatinine Coronavirus (PCR) 09/15/20 09/15/20 09/15/20 18:02 21:10 23:04 WBC RBC Hgb Hct RDW Plt Count Lymph % (Auto) [place] % (Auto) Lymph # (Auto) Seg Neutrophils % Seg Neuts % (Manual) Lymphocytes % (Manual) Seg Neutrophils # Seg Neutrophils # Man Lymphocytes # (Manual) PT INR D-Dimer Heparin Anti-Xa Level 0.78 H ABG pH POC ABG pCO2 POC ABG pO2 ABG Hemoglobin ABG Oxyhemoglobin ABG Sodium ABG Potassium ABG Chloride ABG Glucose Carboxyhemoglobin Sodium Potassium Chloride Carbon Dioxide BUN Creatinine Glucose POC Glucose 241 H 296 H Calcium Phosphorus Magnesium Ferritin AST Lactate Dehydrogenase C-Reactive Protein Total Protein Albumin TSH Arterial Blood Glucose Arterial Blood Ionized Calcium Ur Specific [place] Urine Creatinine Coronavirus (PCR) 09/15/20 09/16/20 09/16/20 23:33 02:45 04:00 WBC 22.7 H RBC Hgb Hct RDW Plt Count 105 L Lymph % (Auto) [place] % (Auto) Lymph # (Auto) Seg Neutrophils % Seg Neuts % (Manual) Lymphocytes % (Manual) Seg Neutrophils # Seg Neutrophils # Man Lymphocytes # (Manual) PT INR D-Dimer Heparin Anti-Xa Level ABG pH 7.171 L POC ABG pCO2 57.1 H POC ABG pO2 144.1 H ABG Hemoglobin ABG Oxyhemoglobin ABG Sodium ABG Potassium 5.0 H ABG Chloride ABG Glucose 273 H Carboxyhemoglobin Sodium Potassium Chloride Carbon Dioxide BUN Creatinine Glucose POC Glucose 298 H Calcium Phosphorus Magnesium Ferritin AST Lactate Dehydrogenase C-Reactive Protein Total Protein Albumin TSH Arterial Blood Glucose 273 H Arterial Blood Ionized Calcium 4.5 L Ur Specific [place] Urine Creatinine Coronavirus (PCR) 09/16/20 09/16/20 09/16/20 04:20 05:10 11:38 WBC RBC Hgb Hct RDW Plt Count Lymph % (Auto) [place] % (Auto) Lymph # (Auto) Seg Neutrophils % Seg Neuts % (Manual) Lymphocytes % (Manual) Seg Neutrophils # Seg Neutrophils # Man Lymphocytes # (Manual) PT INR D-Dimer Heparin Anti-Xa Level ABG pH POC ABG pCO2 POC ABG pO2 ABG Hemoglobin ABG Oxyhemoglobin ABG Sodium ABG Potassium ABG Chloride ABG Glucose Carboxyhemoglobin Sodium Potassium 5.4 H Chloride Carbon Dioxide BUN 75 H Creatinine 3.7 H Glucose 265 H POC Glucose 269 H 279 H Calcium Phosphorus Magnesium Ferritin AST 46 H Lactate Dehydrogenase C-Reactive Protein Total Protein 6.2 L Albumin 2.9 L TSH Arterial Blood Glucose Arterial Blood Ionized Calcium Ur Specific [place] Urine Creatinine Coronavirus (PCR) 09/16/20 09/16/20 09/16/20 13:45 17:21 23:37 WBC RBC Hgb Hct RDW Plt Count Lymph % (Auto) [place] % (Auto) Lymph # (Auto) Seg Neutrophils % Seg Neuts % (Manual) Lymphocytes % (Manual) Seg Neutrophils # Seg Neutrophils # Man Lymphocytes # (Manual) PT INR D-Dimer Heparin Anti-Xa Level ABG pH 7.156 L POC ABG pCO2 59.8 H POC ABG pO2 48.2 L ABG Hemoglobin ABG Oxyhemoglobin 78.1 L ABG Sodium ABG Potassium 5.2 H ABG Chloride ABG Glucose 302 H Carboxyhemoglobin Sodium Potassium Chloride Carbon Dioxide BUN Creatinine Glucose POC Glucose 285 H 385 H Calcium Phosphorus Magnesium Ferritin AST Lactate Dehydrogenase C-Reactive Protein Total Protein Albumin TSH Arterial Blood Glucose 302 H Arterial Blood Ionized Calcium 4.4 L Ur Specific [place] Urine Creatinine Coronavirus (PCR) 09/17/20 09/17/20 09/17/20 04:52 04:52 04:52 WBC 19.4 H RBC Hgb Hct RDW 15.5 H Plt Count 91 L Lymph % (Auto) [place] % (Auto) Lymph # (Auto) Seg Neutrophils % Seg Neuts % (Manual) Lymphocytes % (Manual) Seg Neutrophils # Seg Neutrophils # Man Lymphocytes # (Manual) PT INR D-Dimer > 36708 H Heparin Anti-Xa Level ABG pH POC ABG pCO2 POC ABG pO2 ABG Hemoglobin ABG Oxyhemoglobin ABG Sodium ABG Potassium ABG Chloride ABG Glucose Carboxyhemoglobin Sodium Potassium 5.1 H Chloride Carbon Dioxide BUN 68 H Creatinine 4.1 H Glucose 291 H POC Glucose Calcium 8.3 L Phosphorus 5.60 H Magnesium Ferritin AST Lactate Dehydrogenase 729 H C-Reactive Protein 5.30 H Total Protein Albumin TSH Arterial Blood Glucose Arterial Blood Ionized Calcium Ur Specific [place] Urine Creatinine Coronavirus (PCR) 09/17/20 09/17/20 09/17/20 04:52 05:20 12:02 WBC RBC Hgb Hct RDW Plt Count Lymph % (Auto) [place] % (Auto) Lymph # (Auto) Seg Neutrophils % Seg Neuts % (Manual) Lymphocytes % (Manual) Seg Neutrophils # Seg Neutrophils # Man Lymphocytes # (Manual) PT INR D-Dimer Heparin Anti-Xa Level ABG pH POC ABG pCO2 POC ABG pO2 ABG Hemoglobin ABG Oxyhemoglobin ABG Sodium ABG Potassium ABG Chloride ABG Glucose Carboxyhemoglobin Sodium Potassium Chloride Carbon Dioxide BUN Creatinine Glucose POC Glucose 312 H 240 H Calcium Phosphorus Magnesium Ferritin 1323.0 H AST Lactate Dehydrogenase C-Reactive Protein Total Protein Albumin TSH Arterial Blood Glucose Arterial Blood Ionized Calcium Ur Specific [place] Urine Creatinine Coronavirus (PCR) 09/17/20 09/17/20 09/18/20 17:52 23:19 05:06 WBC RBC Hgb Hct RDW Plt Count Lymph % (Auto) [place] % (Auto) Lymph # (Auto) Seg Neutrophils % Seg Neuts % (Manual) Lymphocytes % (Manual) Seg Neutrophils # Seg Neutrophils # Man Lymphocytes # (Manual) PT INR D-Dimer Heparin Anti-Xa Level ABG pH POC ABG pCO2 POC ABG pO2 ABG Hemoglobin ABG Oxyhemoglobin ABG Sodium ABG Potassium ABG Chloride ABG Glucose Carboxyhemoglobin Sodium Potassium Chloride Carbon Dioxide BUN Creatinine Glucose POC Glucose 242 H 304 H 233 H Calcium Phosphorus Magnesium Ferritin AST Lactate Dehydrogenase C-Reactive Protein Total Protein Albumin TSH Arterial Blood Glucose Arterial Blood Ionized Calcium Ur Specific [place] Urine Creatinine Coronavirus (PCR) 09/18/20 09/18/20 09/18/20 05:15 05:15 09:36 WBC 20.4 H RBC 3.51 L Hgb Hct RDW 15.3 H Plt Count 31 L Lymph % (Auto) [place] % (Auto) Lymph # (Auto) Seg Neutrophils % Seg Neuts % (Manual) Lymphocytes % (Manual) Seg Neutrophils # Seg Neutrophils # Man Lymphocytes # (Manual) PT INR D-Dimer Heparin Anti-Xa Level ABG pH 7.282 L POC ABG pCO2 POC ABG pO2 149.0 H ABG Hemoglobin 10.4 L ABG Oxyhemoglobin ABG Sodium 135.9 L ABG Potassium ABG Chloride ABG Glucose 221 H Carboxyhemoglobin Sodium 135 L Potassium Chloride Carbon Dioxide BUN 57 H Creatinine 4.1 H Glucose 228 H POC Glucose Calcium 7.5 L Phosphorus 5.20 H Magnesium Ferritin AST Lactate Dehydrogenase C-Reactive Protein Total Protein Albumin TSH Arterial Blood Glucose 221 H Arterial Blood Ionized Calcium 4.1 L Ur Specific [place] Urine Creatinine Coronavirus (PCR) 09/18/20 09/18/20 09/18/20 10:53 11:35 17:10 WBC RBC Hgb Hct RDW Plt Count Lymph % (Auto) [place] % (Auto) Lymph # (Auto) Seg Neutrophils % Seg Neuts % (Manual) Lymphocytes % (Manual) Seg Neutrophils # Seg Neutrophils # Man Lymphocytes # (Manual) PT INR D-Dimer Heparin Anti-Xa Level < 0.10 L ABG pH 7.200 L POC ABG pCO2 66.8 H POC ABG pO2 38.6 L ABG Hemoglobin ABG Oxyhemoglobin 68.0 L ABG Sodium ABG Potassium 4.9 H ABG Chloride ABG Glucose 266 H Carboxyhemoglobin Sodium Potassium Chloride Carbon Dioxide BUN Creatinine Glucose POC Glucose 238 H Calcium Phosphorus Magnesium Ferritin AST Lactate Dehydrogenase C-Reactive Protein Total Protein Albumin TSH Arterial Blood Glucose 266 H Arterial Blood Ionized Calcium Ur Specific [place] Urine Creatinine Coronavirus (PCR) 09/18/20 09/18/20 09/19/20 17:54 23:47 02:53 WBC RBC Hgb Hct RDW Plt Count Lymph % (Auto) [place] % (Auto) Lymph # (Auto) Seg Neutrophils % Seg Neuts % (Manual) Lymphocytes % (Manual) Seg Neutrophils # Seg Neutrophils # Man Lymphocytes # (Manual) PT INR D-Dimer Heparin Anti-Xa Level ABG pH 7.151 L POC ABG pCO2 58.1 H POC ABG pO2 ABG Hemoglobin 11.7 L ABG Oxyhemoglobin ABG Sodium ABG Potassium 4.7 H ABG Chloride ABG Glucose 225 H Carboxyhemoglobin Sodium Potassium Chloride Carbon Dioxide BUN Creatinine Glucose POC Glucose 241 H 241 H Calcium Phosphorus Magnesium Ferritin AST Lactate Dehydrogenase C-Reactive Protein Total Protein Albumin TSH Arterial Blood Glucose 225 H Arterial Blood Ionized Calcium Ur Specific [place] Urine Creatinine Coronavirus (PCR) 09/19/20 09/19/20 09/19/20 05:12 05:12 05:12 WBC RBC Hgb Hct RDW Plt Count 27 L Lymph % (Auto) [place] % (Auto) Lymph # (Auto) Seg Neutrophils % Seg Neuts % (Manual) Lymphocytes % (Manual) Seg Neutrophils # Seg Neutrophils # Man Lymphocytes # (Manual) PT INR D-Dimer > 19762 H Heparin Anti-Xa Level ABG pH POC ABG pCO2 POC ABG pO2 ABG Hemoglobin ABG Oxyhemoglobin ABG Sodium ABG Potassium ABG Chloride ABG Glucose Carboxyhemoglobin Sodium Potassium Chloride Carbon Dioxide BUN Creatinine Glucose POC Glucose Calcium Phosphorus Magnesium Ferritin > 2000.0 H AST Lactate Dehydrogenase C-Reactive Protein Total Protein Albumin TSH Arterial Blood Glucose Arterial Blood Ionized Calcium Ur Specific [place] Urine Creatinine Coronavirus (PCR) 09/19/20 09/19/20 09/19/20 05:12 05:27 11:47 WBC RBC Hgb Hct RDW Plt Count Lymph % (Auto) [place] % (Auto) Lymph # (Auto) Seg Neutrophils % Seg Neuts % (Manual) Lymphocytes % (Manual) Seg Neutrophils # Seg Neutrophils # Man Lymphocytes # (Manual) PT INR D-Dimer Heparin Anti-Xa Level ABG pH POC ABG pCO2 POC ABG pO2 ABG Hemoglobin ABG Oxyhemoglobin ABG Sodium ABG Potassium ABG Chloride ABG Glucose Carboxyhemoglobin Sodium Potassium Chloride Carbon Dioxide BUN Creatinine Glucose POC Glucose 220 H 158 H Calcium Phosphorus Magnesium Ferritin AST Lactate Dehydrogenase 1894 H C-Reactive Protein 9.20 H Total Protein Albumin TSH Arterial Blood Glucose Arterial Blood Ionized Calcium Ur Specific [place] Urine Creatinine Coronavirus (PCR) 09/19/20 09/19/20 09/19/20 12:10 17:34 23:59 WBC RBC Hgb Hct RDW Plt Count Lymph % (Auto) [place] % (Auto) Lymph # (Auto) Seg Neutrophils % Seg Neuts % (Manual) Lymphocytes % (Manual) Seg Neutrophils # Seg Neutrophils # Man Lymphocytes # (Manual) PT INR D-Dimer Heparin Anti-Xa Level ABG pH POC ABG pCO2 POC ABG pO2 ABG Hemoglobin ABG Oxyhemoglobin ABG Sodium ABG Potassium ABG Chloride ABG Glucose Carboxyhemoglobin Sodium Potassium 5.2 H Chloride Carbon Dioxide 21 L BUN 73 H Creatinine 4.6 H Glucose 171 H POC Glucose 131 H 147 H Calcium 8.0 L Phosphorus Magnesium Ferritin AST Lactate Dehydrogenase C-Reactive Protein Total Protein Albumin TSH Arterial Blood Glucose Arterial Blood Ionized Calcium Ur Specific [place] Urine Creatinine Coronavirus (PCR) 09/20/20 09/20/20 09/20/20 03:01 05:35 08:00 WBC RBC Hgb Hct RDW Plt Count Lymph % (Auto) [place] % (Auto) Lymph # (Auto) Seg Neutrophils % Seg Neuts % (Manual) Lymphocytes % (Manual) Seg Neutrophils # Seg Neutrophils # Man Lymphocytes # (Manual) PT INR D-Dimer Heparin Anti-Xa Level ABG pH 7.186 L POC ABG pCO2 54.5 H POC ABG pO2 118.4 H ABG Hemoglobin 10.8 L ABG Oxyhemoglobin ABG Sodium ABG Potassium 5.1 H ABG Chloride ABG Glucose 193 H Carboxyhemoglobin Sodium Potassium 5.4 H Chloride Carbon Dioxide BUN 98 H Creatinine 5.9 H Glucose 184 H POC Glucose 188 H Calcium 8.1 L Phosphorus Magnesium Ferritin AST Lactate Dehydrogenase C-Reactive Protein Total Protein Albumin TSH Arterial Blood Glucose 193 H Arterial Blood Ionized Calcium 4.4 L Ur Specific [place] Urine Creatinine Coronavirus (PCR) 09/20/20 09/20/20 08:00 11:36 WBC 25.1 H RBC 3.22 L Hgb 10.0 L Hct RDW 15.5 H Plt Count Lymph % (Auto) [place] % (Auto) Lymph # (Auto) Seg Neutrophils % Seg Neuts % (Manual) Lymphocytes % (Manual) Seg Neutrophils # Seg Neutrophils # Man Lymphocytes # (Manual) PT INR D-Dimer Heparin Anti-Xa Level ABG pH POC ABG pCO2 POC ABG pO2 ABG Hemoglobin ABG Oxyhemoglobin ABG Sodium ABG Potassium ABG Chloride ABG Glucose Carboxyhemoglobin Sodium Potassium Chloride Carbon Dioxide BUN Creatinine Glucose POC Glucose 158 H Calcium Phosphorus Magnesium Ferritin AST Lactate Dehydrogenase C-Reactive Protein Total Protein Albumin TSH Arterial Blood Glucose Arterial Blood Ionized Calcium Ur Specific [place] Urine Creatinine Coronavirus (PCR) Chest x-ray: other (none) Allied health notes reviewed: nursing
[2020-09-20] MEDS: CEFEPIME/NS 1 GM/100 ML 1 GM/100 ML BAG IV SCH (17:31)
[2020-09-21] MEDS: VASOPRESSIN 20 UNIT in SODIUM CHLORIDE 0.9% 100 ML IV SCH ×4 (00:10→23:25)
[2020-09-21] MEDS: fentaNYL DRIP Premix 2,000 MCG/100 ML BAG IV SCH ×6 (00:15→22:04)
[2020-09-21] MEDS: MIDAZOLAM 100 MG in SODIUM CHLORIDE 0.9% 80 ML IV SCH (00:57)
[2020-09-21] MEDS: INSULIN LISPRO 100 UNIT/ML SUB-Q SCH ×4 (01:12→17:16)
[2020-09-21] MEDS: ACETAMINOPHEN 325 MG TAB PO PRN ×2 (04:15→07:49)
[2020-09-21] MEDS: NORepinephrine/NS 8 MG-250 ML 8 MG/250 ML INFUS..BTL IV SCH ×3 (04:40→20:42)
[2020-09-21 05:17] LABS: Hematocrit 30.3 % (30.3-42.9); Hemoglobin 9.9 gm/dl (10.1-14.3); Mean Corpuscular HGB Conc 33 % (30-34); Mean Corpuscular Volume 95 fl (79-97); Red Cell Distribution Width 15.2 % (13.2-15.2)
[2020-09-21 05:20] LABS: Platelet Count 14 K/mm3 (140-440)
[2020-09-21 05:36] LABS: Calcium 8.3 mg/dL (8.4-10.2)
[2020-09-21] MEDS ORDERED: SODIUM CHLORIDE 0.9% 500 ML 500 ML IV ONE (05:58)
[2020-09-21] MEDS: METOCLOPRAMIDE 10 MG/2 ML INJ IV SCH ×3 (06:01→22:07)
[2020-09-21] MEDS: IPRATROPIUM/ALBUTEROL SULFATE 3 ML AMPUL.NEB IH SCH ×3 (08:35→20:29)
--- NOTE | 2020-09-21 09:14 | Progress Note ---
Assessment and Plan Impression * Oliguric acute kidney injury secondary to ATN * Acute hypoxic/hypercapnic respirtaory failure secondary to COVID 19 PNA * COVID 19 PNA * Sepsis * Hyperkalemia * Azotemia * Respiratory acidosis * Type II DM Plan: * No evidence of renal recovery at this time * patient had only 30 minutes of dialysis yesterday. Terminated early due to tachycardia * She is currently on vasopressin as well as Levophed drip. * Serum potassium is 5.3 today. Shall administer IV albumin and attempt dialysis again today * UF as tolerated * Dose medications for renal function * Vent management per CCM * ID following * Pressors prn to maintain MAP >65 * Discussed with patient's nurse as well as dialysis nurse Subjective Date of service: 09/21/20 Principal diagnosis: Ac hypoxemic resp failure; ARDS; COVID-19 infxn; PNA; DM II; Obesity Interval history: Patient remains on the ventilator. Currently on 80% FiO2. No urine output. Patient did not tolerate dialysis yesterday due to tachycardia. Dialysis terminated after 30 minutes. Discussed with patient's nurse Objective - Exam Narrative Exam: Physical exam deferred due to patient's Covid positive status. She is currently on the ventilator on 80% FiO2. Left IJ Vas-Cath in place Remains on vasopressin as well as Levophed drip. Negligible urine output - Vital Signs Vital signs: Vital Signs - 12hr 09/20/20 09/20/20 09/20/20 21:30 21:37 22:00 Temperature Pulse Rate 128 H 127 H 127 H Respiratory 30 H 30 H Rate Blood Pressure 110/69 111/68 109/66 O2 Sat by Pulse 100 100 98 Oximetry 09/20/20 09/20/20 09/20/20 22:30 23:00 23:30 Temperature Pulse Rate 127 H 127 H 127 H Respiratory 30 H 30 H 30 H Rate Blood Pressure 112/65 107/63 109/61 O2 Sat by Pulse 98 98 97 Oximetry 09/21/20 09/21/20 09/21/20 00:00 00:29 00:30 Temperature 98.8 F Pulse Rate 126 H 130 H 128 H Respiratory 31 H Rate Blood Pressure 104/64 102/60 112/60 O2 Sat by Pulse 100 99 98 Oximetry 09/21/20 09/21/20 09/21/20 01:00 01:30 02:00 Temperature Pulse Rate 127 H 127 H 124 H Respiratory 30 H 30 H Rate Blood Pressure 101/64 109/57 108/57 O2 Sat by Pulse 96 98 Oximetry 09/21/20 09/21/20 09/21/20 02:25 02:30 03:00 Temperature Pulse Rate 125 H 125 H 124 H Respiratory 30 H 30 H Rate Blood Pressure 99/56 100/53 O2 Sat by Pulse 98 Oximetry 09/21/20 09/21/20 09/21/20 03:30 04:00 04:12 Temperature Pulse Rate 122 H 124 H 124 H Respiratory 30 H 30 H Rate Blood Pressure 102/59 105/60 108/50 O2 Sat by Pulse 97 98 Oximetry 09/21/20 09/21/20 09/21/20 04:30 05:00 05:30 Temperature Pulse Rate 122 H 126 H 127 H Respiratory 30 H 30 H 30 H Rate Blood Pressure 111/59 104/56 105/59 O2 Sat by Pulse 94 95 97 Oximetry 09/21/20 09/21/20 09/21/20 06:00 06:30 07:00 Temperature 102.6 F H Pulse Rate 125 H 125 H 127 H Respiratory 30 H 30 H 30 H Rate Blood Pressure 105/57 110/56 105/57 O2 Sat by Pulse 96 97 97 Oximetry 09/21/20 09/21/20 07:30 08:00 Temperature Pulse Rate 128 H 128 H Respiratory 30 H 30 H Rate Blood Pressure 111/60 101/59 O2 Sat by Pulse 96 90 Oximetry - Lab 09/21/20 04:45 09/21/20 04:45 Most recent lab results ABG pH 7.201 (7.320-7.450) L 09/21/20 03:10 ABG O2 Saturation 98.9 (0-100) 09/21/20 03:10 Calcium 8.3 mg/dL (8.4-10.2) L 09/21/20 04:45 Phosphorus 5.20 mg/dL (2.5-4.5) H 09/18/20 05:15 Magnesium 2.00 mg/dL (1.7-2.3) 09/18/20 05:15 Urine Creatinine 43.2 mg/dL (0.1-20.0) H 09/12/20 13:30 Urine Sodium 58 mmol/L 09/12/20 13:30 Medications & Allergies - Medications Allergies/Adverse Reactions: Allergies lisinopril Allergy (Severe, Verified 09/08/20 16:33) Angioedema Home Medications: Home Medications Medication Instructions Recorded Confirmed Last Taken Type Losartan 100 mg PO DAILY 09/09/20 09/09/20 09/08/20 08:00 History Metformin HCl 500 mg PO BID 09/09/20 09/09/20 09/08/20 History 500 carvediloL 3.125 mg PO BID 09/09/20 09/09/20 09/08/20 History glipiZIDE 10 mg PO AC 09/09/20 09/09/20 09/08/20 08:00 History Active Medications: Generic Name Dose Route Start Last Admin Trade Name Freq PRN Reason Stop Dose Admin Acetaminophen 650 mg 09/08/20 20:23 09/21/20 07:49 Acetaminophen 325 Mg Tab PO 650 mg Q4H PRN Administration Pain MILD(1-3)/Fever >100.5/CORTEZ Albuterol 2.5 mg 09/08/20 20:23 Albuterol 2.5 Mg/3 Ml Nebu IH Q4HRT PRN Shortness Of Breath Albuterol/Ipratropium 1 ampul 09/13/20 12:30 09/21/20 08:35 Ipratropium/Albuterol Sulfate 3 Ml Ampul.Neb IH 1 ampul BID ISIAH Administration Lipase/Protease/Amylase 1 each 09/11/20 11:45 Lipase 10,500/Protease 25,000/Amylase 43,750 (Units) Dr Luis Manuel HARRISON PRN PRN For Clogged Feeding Tube Ascorbic Acid 500 mg 09/08/20 22:00 09/20/20 21:01 Ascorbic Acid 500 Mg Tab PO 500 mg BID ISIAH Administration Cholecalciferol 1,000 unit 09/09/20 10:00 09/20/20 09:07 Cholecalciferol (Vit D3) 1000 Unit (25 Mcg) Tab PO 1,000 unit QDAY ISIAH Administration Famotidine 10 mg 09/14/20 22:00 09/20/20 21:01 Famotidine 20 Mg/2 Ml Inj IV 10 mg BID ISIAH Administration Fentanyl 50 mcg 09/13/20 12:12 Fentanyl 100 Mcg/2 Ml Inj IV Q10MIN PRN ANALGESIA Guaifenesin 10 ml 09/09/20 16:01 09/10/20 05:14 Guaifenesin Dm 200/20 Mg Oral Liqd 10 Ml PO 10 ml Q4H PRN Administration Cough Hydralazine HCl 10 mg 09/11/20 21:33 Hydralazine 20 Mg/1 Ml Inj IV Q4H PRN Hypertension Fentanyl Citrate 2,000 mcg in 100 mls @ 7.45 mls/hr 09/10/20 23:00 09/21/20 07:50 Fentanyl Drip Premix IV 4 mcg/kg/hr TITR ISIAH 29.8 mls/hr Administration Protocol 1 MCG/KG/HR Vasopressin 20 unit/ Sodium 101 mls @ 9.09 mls/hr 09/11/20 22:00 09/21/20 00:10 Chloride IV 0.03 units/min TITR ISIAH 9.09 mls/hr Administration Protocol 0.03 UNITS/MIN Midazolam HCl 100 mg/ Sodium 100 mls @ 1 mls/hr 09/12/20 17:30 09/21/20 00:57 Chloride IV 4 mg/hr TITR ISIAH 4 mls/hr Administration Protocol 1 MG/HR Propofol 1,000 mg in 100 mls @ 4.47 mls/hr 09/13/20 13:00 09/19/20 02:24 Diprivan 10 Mg/Ml IV 0 mcg/kg/min TITR ISIAH 0 mls/hr Titration Protocol 5 MCG/KG/MIN Sodium Chloride 1,000 mls @ 110 mls/hr 09/15/20 05:30 Nacl 0.9% 1000 Ml IV DIRECT ISIAH Sodium Chloride 100 mls @ 999 mls/hr 09/17/20 15:04 Nacl 0.9% IV NABEEL PRN Hypotension Cefepime HCl 1 gm in 100 mls @ 200 mls/hr 09/18/20 20:00 09/20/20 17:31 Cefepime/Ns 1 Gm/100 Ml IV 200 mls/hr QPM ISIAH Administration Protocol Fluconazole 200 mg in 100 mls @ 100 mls/hr 09/18/20 14:00 09/20/20 15:36 Diflucan IV 100 mls/hr Q24H ISIAH Administration NORepinephrine/NS 8 MG-250 ML 8 mg in 250 mls @ 3.75 mls/hr 09/20/20 10:00 09/21/20 04:40 Norepinephrine/Ns 8 Mg-250 Ml (Double Conc) IV 10 mcg/min TITRATE ISIAH 18.75 mls/hr Administration Protocol 2 MCG/MIN Insulin Human Lispro 0 unit 09/11/20 12:00 09/21/20 06:01 Insulin Lispro 100 Unit/Ml SUB-Q Not Given Q6HR ISIAH Protocol Metoclopramide HCl 5 mg 09/19/20 12:00 09/21/20 06:01 Metoclopramide 10 Mg/2 Ml Inj IV 5 mg Q8H ISIAH Administration Midazolam HCl 2 mg 09/12/20 17:30 09/13/20 12:05 Midazolam 2 Mg/2 Ml Inj IV 2 mg Q10MIN PRN Administration Sedation Senna/Docusate Sodium 2 tab 09/19/20 12:00 09/20/20 21:01 Sennosides/Docusate Sodium 8.6/50 Mg Tab PO 2 tab BID ISIAH Administration Simple Syrup 15 ml 09/11/20 11:45 Simple Syrup 15 Ml FEEDTUBE PRN PRN Hypoglycemia Simple Syrup 30 ml 09/11/20 11:45 Simple Syrup 15 Ml FEEDTUBE PRN PRN Hypoglycemia Sodium Bicarbonate 325 mg 09/11/20 11:45 Sodium Bicarbonate 325 Mg Tab FEEDTUBE PRN PRN For Clogged Feeding Tube Sodium Chloride 10 ml 09/08/20 22:00 09/20/20 21:02 Sodium Chloride 0.9% 10 Ml Flush Syringe IV 10 ml BID ISIAH Administration Sodium Chloride 10 ml 09/08/20 20:23 Sodium Chloride 0.9% 10 Ml Flush Syringe IV PRN PRN LINE FLUSH Zinc Sulfate 220 mg 09/08/20 22:00 09/20/20 21:01 Zinc Sulfate 220 Mg Cap PO 220 mg BID ISIAH Administration
[2020-09-21] MEDS ORDERED: SODIUM CHLORIDE 0.9% 100 ML IV PRN (09:30)
[2020-09-21] MEDS: FAMOTIDINE 20 MG/2 ML INJ IV SCH ×2 (10:14→22:07)
[2020-09-21] MEDS: ASCORBIC ACID 500 MG TAB PO SCH (10:15)
[2020-09-21] MEDS: SENNOSIDES/DOCUSATE SODIUM 8.6/50 MG TAB PO SCH ×2 (10:15→22:08)
[2020-09-21] MEDS: ZINC SULFATE 220 MG CAP PO SCH (10:16)
[2020-09-21] MEDS: CHOLECALCIFEROL (VIT D3) 1000 UNIT (25 mcg) TAB PO SCH (10:16)
--- NOTE | 2020-09-21 11:37 | Progress Note ---
Assessment and Plan Assessment and plan: Acute metabolic encephalopathy -Sedated with propofol, fentanyl, versed no changes to this point. -RASS goal neg 4 -PERRL -family updated on plan of care-spoke i spoke to daughter Vikas all questions and concerns answered -case management following Severe sepsis -Atropine at bedside -Hold home Coreg-> no rate lowering meds; s/p bradycardia -SR-ST-heart rate minimally improved 75 remains on pressors Heart rate well controlled in 70s. -trend QT -NE, vaso for hypotension -Hydralazine IV as needed for SBP greater than 160 has not required antih ypertensive. Has not required hydralazine will follow. -normal biV function on echo -CVP- trend daily Acute hypoxic respiratory failure due to covid pna , Acute hypoxemic respiratory failure, COVID-19 infection, Bilateral pneumonia -Intubated 09/10 -Presented with Covid pneumonia -CCM consulted, appreciate recommendations -VAP bundle -Wean mechanical ventilation as tolerated -Current vent settings: AC, 30/450/18/100 -see RT notes for titration/changes -Serial ABGs -Serial CXRs -proned 09/13-09/17 -continue duonebs COVID-19 Pneumonia Covid test positive on 09/09 -COVID-19 PCR (+) on 09/09 -Infectious disease consulted, appreciate recommendations -IV tocilizumab x1 -Dexamethasone 09/10 through 09/19 -Remdesivir 09/11 through 09/14 -Azithromycin 09/09 through 09/13, Rocephin 09/09 through 09/13 -Contact/droplet precaution -Trend COVID-19 inflammatory markers -on zinc and Vit C -ID started renally dosed cefepime/Vanco d/t increasing vasopresser use Cholelithiasis/transaminitis -Nutrition consulted, appreciate recommendations -tolerating TF -PPI -BR: Colace -BM 09/10 -Trend LFTs and tbili -Prognosis extremely poor but if patient does survive sleep study. Acute kidney injury secondary to vasomotor nephropathy -Presented with a BUN/creatinine of 1.5/32 -Avoid nephrotoxic medication -Nephrology consulted, appreciate recommendations -Strict intake and output -bladder scanning with intermittent straight caths -Daily weights-currently not overloaded at this time. Hemodialysis pending tomorrow. -Trend BMP -renal consulted for uptrending Cr urine electrolytes and renal U/S ordered -09/15/2020 HD started s/p vascath placement -HD per nephrology -AM labs ordered - 24 hr fluid status: (+) 2626 Pancytopenia -Leukopenia likely secondary to COVID-19 infection-resolved -Thrombocytopenia likely secondary to sepsis. 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 Heparin d/c, hit panel ordered. holding argatroban. -09/08 CTA chest shows no evidence of pulmonary embolism, multifocal airspace opacities with nodular densities and groundglass opacities in bilateral lungs, cholelithiasis, cholelithiasis -doppler BLE neg for DVT -Blood tinged sputum -Low dose heparin gtt -Trend CBC -> bloody secretions from ett today. -Transfuse for hemoglobin less than 7 DM type II; hyperglycemia -Accu-Checks every 6hours -Avoid hypoglycemia -SSI -lantus scheduled, titrate as needed 09/21/2020. Patient currently on mechanical ventilation AC mode rate of 30, tidal volume 450, FiO2 80% and PEEP of 20. Patient currently with sedation of fentanyl, propofol and Versed drips. Maintain pressors for MAP > 65. Patient with Levophed and with vasopressin ordered. Continue antimicrobials of cefepime and fluconazole per ID recommendations. The high probability of a clinically significant, sudden or life threatening deterioration of the [cardiac, respiratory and neurologic] system(s) required my full and direct attention, intervention and personal management. The aggregate critical care time was [32] minutes. This time is in addition to time spent performing reported procedures but includes the following: [x] Data Review and interpretation [x] Patient assessment and monitoring of vital signs [x] Documentation [x] Medication orders and management History Interval history: No new issues overnight. Hospitalist Physical - Constitutional Vitals: Temp Pulse Resp BP Pulse Ox 102.6 F H 134 H 30 H 107/59 91 09/21/20 07:00 09/21/20 11:20 09/21/20 08:37 09/21/20 11:20 09/21/20 11:20 General appearance: Present: no acute distress, other (Intubated sedated) - EENT Eyes: Present: PERRL, EOM intact ENT: hearing intact, clear oral mucosa, dentition normal - Neck Neck: Present: supple, normal ROM - Respiratory Respiratory effort: normal Respiratory: bilateral: CTA - Cardiovascular Rhythm: regular Heart Sounds: Present: S1 & S2. Absent: gallop, rub - Extremities Extremities: no ischemia, No edema, Full ROM - Abdominal General gastrointestinal: soft, non-tender, non-distended, normal bowel sounds - Integumentary Integumentary: Present: clear, warm, dry - Neurologic Neurologic: CNII-XII intact, moves all extremities HEART Score - HEART Score Troponin: Troponin T < 0.010 ng/mL (0.00-0.029) 09/09/20 00:39 Results - Labs CBC & Chem 7: 09/21/20 04:45 09/21/20 04:45 Labs: Laboratory Last Values WBC 33.2 K/mm3 (4.5-11.0) H 09/21/20 04:45 RBC 3.20 M/mm3 (3.65-5.03) L 09/21/20 04:45 Hgb 9.9 gm/dl (10.1-14.3) L 09/21/20 04:45 Hct 30.3 % (30.3-42.9) 09/21/20 04:45 MCV 95 fl (79-97) 09/21/20 04:45 MCH 31 pg (28-32) 09/21/20 04:45 MCHC 33 % (30-34) 09/21/20 04:45 RDW 15.2 % (13.2-15.2) 09/21/20 04:45 Plt Count 14 K/mm3 (140-440) L* 09/21/20 04:45 Lymph % (Auto) 3.9 % (13.4-35.0) L 09/15/20 03:10 [place] % (Auto) 5.9 % (0.0-7.3) 09/15/20 03:10 Eos % (Auto) 0.2 % (0.0-4.3) 09/15/20 03:10 Baso % (Auto) 0.1 % (0.0-1.8) 09/15/20 03:10 Lymph # (Auto) 0.5 K/mm3 (1.2-5.4) L 09/15/20 03:10 [place] # (Auto) 0.8 K/mm3 (0.0-0.8) 09/15/20 03:10 Eos # (Auto) 0.0 K/mm3 (0.0-0.4) 09/15/20 03:10 Baso # (Auto) 0.0 K/mm3 (0.0-0.1) 09/15/20 03:10 Add Manual Diff Complete 09/12/20 17:17 Total Counted 100 09/12/20 17:17 Seg Neutrophils % 89.9 % (40.0-70.0) H 09/15/20 03:10 Seg Neuts % (Manual) 96.0 % (40.0-70.0) H 09/12/20 17:17 Lymphocytes % (Manual) 1.0 % (13.4-35.0) L 09/12/20 17:17 Monocytes % (Manual) 3.0 % (0.0-7.3) 09/12/20 17:17 Nucleated RBC % Not Reportable 09/12/20 17:17 Seg Neutrophils # 12.1 K/mm3 (1.8-7.7) H 09/15/20 03:10 Seg Neutrophils # Man 9.8 K/mm3 (1.8-7.7) H 09/12/20 17:17 Band Neutrophils # 0.0 K/mm3 09/12/20 17:17 Lymphocytes # (Manual) 0.1 K/mm3 (1.2-5.4) L 09/12/20 17:17 Abs React Lymphs (Man) 0.0 K/mm3 09/12/20 17:17 Monocytes # (Manual) 0.3 K/mm3 (0.0-0.8) 09/12/20 17:17 Eosinophils # (Manual) 0.0 K/mm3 (0.0-0.4) 09/12/20 17:17 Basophils # (Manual) 0.0 K/mm3 (0.0-0.1) 09/12/20 17:17 Metamyelocytes # 0.0 K/mm3 09/12/20 17:17 Myelocytes # 0.0 K/mm3 09/12/20 17:17 Promyelocytes # 0.0 K/mm3 09/12/20 17:17 Blast Cells # 0.0 K/mm3 09/12/20 17:17 WBC Morphology Not Reportable 09/12/20 17:17 Hypersegmented Neuts Not Reportable 09/12/20 17:17 Hyposegmented Neuts Not Reportable 09/12/20 17:17 Hypogranular Neuts Not Reportable 09/12/20 17:17 Smudge Cells Not Reportable 09/12/20 17:17 Toxic Granulation Not Reportable 09/12/20 17:17 Toxic Vacuolation Not Reportable 09/12/20 17:17 Dohle Bodies Not Reportable 09/12/20 17:17 Pelger-Huet Anomaly Not Reportable 09/12/20 17:17 Katrin Rods Not Reportable 09/12/20 17:17 Platelet Estimate Consistent w auto 09/12/20 17:17 Clumped Platelets Not Reportable 09/12/20 17:17 Plt Clumps, EDTA Not Reportable 09/12/20 17:17 Large Platelets Not Reportable 09/12/20 17:17 Giant Platelets Not Reportable 09/12/20 17:17 Platelet Satelliting Not Reportable 09/12/20 17:17 Plt Morphology Comment Not Reportable 09/12/20 17:17 RBC Morphology Normal 09/12/20 17:17 Dimorphic RBCs Not Reportable 09/12/20 17:17 Polychromasia Not Reportable 09/12/20 17:17 Hypochromasia Not Reportable 09/12/20 17:17 Poikilocytosis Not Reportable 09/12/20 17:17 Anisocytosis Not Reportable 09/12/20 17:17 Microcytosis Not Reportable 09/12/20 17:17 Macrocytosis Not Reportable 09/12/20 17:17 Spherocytes Not Reportable 09/12/20 17:17 Pappenheimer Bodies Not Reportable 09/12/20 17:17 Sickle Cells Not Reportable 09/12/20 17:17 Target Cells Not Reportable 09/12/20 17:17 Tear Drop Cells Not Reportable 09/12/20 17:17 Ovalocytes Not Reportable 09/12/20 17:17 Helmet Cells Not Reportable 09/12/20 17:17 Xiong-Alianza Bodies Not Reportable 09/12/20 17:17 [place] Rings Not Reportable 09/12/20 17:17 Hugo Cells Not Reportable 09/12/20 17:17 Bite Cells Not Reportable 09/12/20 17:17 Crenated Cell Not Reportable 09/12/20 17:17 Elliptocytes Not Reportable 09/12/20 17:17 Acanthocytes (Spur) Not Reportable 09/12/20 17:17 Rouleaux Not Reportable 09/12/20 17:17 Hemoglobin C Crystals Not Reportable 09/12/20 17:17 Schistocytes Not Reportable 09/12/20 17:17 Malaria parasites Not Reportable 09/12/20 17:17 Hansel Bodies Not Reportable 09/12/20 17:17 Hem Pathologist Commnt No 09/12/20 17:17 PT 18.8 Sec. (12.2-14.9) H 09/15/20 14:00 INR 1.52 (0.87-1.13) H 09/15/20 14:00 APTT 32.7 Sec. (24.2-36.6) 09/15/20 14:00 D-Dimer > 81077 ng/mlDDU (0-234) H 09/19/20 05:12 Heparin Anti-Xa Level < 0.10 U.I./ml (0.3-0.7) L 09/18/20 10:53 ABG pH 7.201 (7.320-7.450) L 09/21/20 03:10 POC ABG pCO2 46.6 mmHg (32.0-48.0) 09/21/20 03:10 POC ABG pO2 180.8 mmHg (83-108) H 09/21/20 03:10 POC ABG HCO3 17.8 09/21/20 03:10 ABG O2 Saturation 98.9 (0-100) 09/21/20 03:10 POC ABG Base Excess -9.8 09/21/20 03:10 ABG Hemoglobin 10.6 (12.0-17.5) L 09/21/20 03:10 ABG Oxyhemoglobin 97.8 (94-98) 09/21/20 03:10 ABG Methemoglobin 0.3 (0.0-1.5) 09/21/20 03:10 ABG Sodium 138.1 mmol/L (136.0-145.0) 09/21/20 03:10 ABG Potassium 4.9 mmol/L (3.40-4.50) H 09/21/20 03:10 ABG Chloride 105.0 mmol/L (98-107) 09/21/20 03:10 ABG Glucose 130 mg/dL (65-95) H 09/21/20 03:10 Carboxyhemoglobin 0.8 (0.5-1.5) 09/21/20 03:10 FiO2 % 100.0 09/21/20 03:10 Sodium 144 mmol/L (137-145) 09/21/20 04:45 Potassium 5.3 mmol/L (3.6-5.0) H 09/21/20 04:45 Chloride 104.5 mmol/L (98-107) 09/21/20 04:45 Carbon Dioxide 23 mmol/L (22-30) 09/21/20 04:45 Anion Gap 22 mmol/L 09/21/20 04:45 BUN 103 mg/dL (7-17) H 09/21/20 04:45 Creatinine 6.3 mg/dL (0.6-1.2) H 09/21/20 04:45 Estimated GFR 8 ml/min 09/21/20 04:45 BUN/Creatinine Ratio 16 % 09/21/20 04:45 Glucose 129 mg/dL (65-100) H 09/21/20 04:45 POC Glucose 98 mg/dL (70-105) 09/21/20 05:52 Osmolality 329 Mosm/kg 09/12/20 17:17 Lactic Acid 1.90 mmol/L (0.7-2.0) 09/12/20 17:17 Calcium 8.3 mg/dL (8.4-10.2) L 09/21/20 04:45 Phosphorus 5.20 mg/dL (2.5-4.5) H 09/18/20 05:15 Magnesium 2.00 mg/dL (1.7-2.3) 09/18/20 05:15 Ferritin > 2000.0 ng/mL (10.0-200.0) H 09/19/20 05:12 Total Bilirubin 0.20 mg/dL (0.1-1.2) 09/16/20 04:20 AST 46 units/L (5-40) H 09/16/20 04:20 ALT 27 units/L (7-56) 09/16/20 04:20 Alkaline Phosphatase 112 units/L (35-129) 09/16/20 04:20 Lactate Dehydrogenase 1894 units/L (91-180) H 09/19/20 05:12 Troponin T < 0.010 ng/mL (0.00-0.029) 09/09/20 00:39 C-Reactive Protein 9.20 mg/dL (0.00-1.30) H 09/19/20 05:12 NT-Pro-B Natriuret Pep 503.6 pg/mL (0-900) 09/08/20 17:37 Total Protein 6.2 g/dL (6.3-8.2) L 09/16/20 04:20 Albumin 2.9 g/dL (3.9-5) L 09/16/20 04:20 Albumin/Globulin Ratio 0.9 % 09/16/20 04:20 Lipase 47 units/L (13-60) 09/08/20 17:37 Procalcitonin 0.74 ng/mL (<0.15) 09/15/20 03:10 TSH 0.067 mlU/mL (0.270-4.200) L 09/12/20 17:17 Arterial Blood Glucose 130 mg/dL (65-95) H 09/21/20 03:10 Arterial Blood Ionized Calcium 4.4 mg/dL (4.6-5.3) L 09/21/20 03:10 Urine Color Yellow (Yellow) 09/12/20 13:30 Urine Turbidity Clear (Clear) 09/12/20 13:30 Urine pH 5.0 (5.0-7.0) 09/12/20 13:30 Ur Specific [place] 1.011 (1.003-1.030) 09/12/20 13:30 Urine Protein 100 mg/dl mg/dL (Negative) 09/12/20 13:30 Urine Glucose (UA) 50 mg/dL (Negative) 09/12/20 13:30 Urine Ketones Neg mg/dL (Negative) 09/12/20 13:30 Urine Blood Lg (Negative) 09/12/20 13:30 Urine Nitrite Neg (Negative) 09/12/20 13:30 Urine Bilirubin Neg (Negative) 09/12/20 13:30 Urine Urobilinogen < 2.0 mg/dL (<2.0) 09/12/20 13:30 Ur Leukocyte Esterase Neg (Negative) 09/12/20 13:30 Urine WBC (Auto) 2.0 /HPF (0.0-6.0) 09/12/20 13:30 Urine RBC (Auto) 47.0 /HPF (0.0-6.0) 09/12/20 13:30 U Epithel Cells (Auto) 2.0 /HPF (0-13.0) 09/08/20 22:24 Urine Bacteria (Auto) 1+ /HPF (Negative) 09/12/20 13:30 Urine Mucus Few /HPF 09/12/20 13:30 Urine Osmolality 340 Mosm/kg 09/12/20 13:30 Urine Creatinine 43.2 mg/dL (0.1-20.0) H 09/12/20 13:30 Urine Sodium 58 mmol/L 09/12/20 13:30 Urine Urea Nitrogen 479 09/12/20 13:30 Random Vancomycin 11.8 ug/mL (0-40.0) 09/19/20 05:12 Urine Opiates Screen Presumptive negative 09/08/20 22:24 Urine Methadone Screen Presumptive negative 09/08/20 22:24 Ur Barbiturates Screen Presumptive negative 09/08/20 22:24 Ur Phencyclidine Scrn Presumptive negative 09/08/20 22:24 Ur Amphetamines Screen Presumptive negative 09/08/20 22:24 U Benzodiazepines Scrn Presumptive negative 09/08/20 22:24 Urine Cocaine Screen Presumptive negative 09/08/20 22:24 U Marijuana (THC) Screen Presumptive negative 09/08/20 22:24 Drugs of Abuse Note Disclamer 09/08/20 22:24 Coronavirus (PCR) Positive (Negative) A 09/09/20 09:00 Hepatitis A IgM Ab Non-reactive (NonReactive) 09/15/20 13:25 Hep Bs Antigen Non-reactive (Negative) 09/15/20 13:25 Hep B Core IgM Ab Non-reactive (NonReactive) 09/15/20 13:25 Hepatitis C Antibody Non-reactive (NonReactive) 09/15/20 13:25 Blood Type O POSITIVE 09/21/20 09:15 Microbiology: Microbiology 09/17/20 16:27 Peripheral/Venous Blood Culture - Preliminary NO GROWTH AFTER 72 HOURS Begum/IV: Voiding Method Indwelling Catheter Active Medications - Current Medications Current Medications: Generic Name Dose Route Start Last Admin Trade Name Freq PRN Reason Stop Dose Admin Acetaminophen 650 mg 09/08/20 20:23 09/21/20 07:49 Acetaminophen 325 Mg Tab PO 650 mg Q4H PRN Administration Pain MILD(1-3)/Fever >100.5/CORTEZ Albuterol 2.5 mg 09/08/20 20:23 Albuterol 2.5 Mg/3 Ml Nebu IH Q4HRT PRN Shortness Of Breath Albuterol/Ipratropium 1 ampul 09/13/20 12:30 09/21/20 09:16 Ipratropium/Albuterol Sulfate 3 Ml Ampul.Neb IH Not Given BID ISIAH Lipase/Protease/Amylase 1 each 09/11/20 11:45 Lipase 10,500/Protease 25,000/Amylase 43,750 (Units) Dr Cap FEEDTUBE PRN PRN For Clogged Feeding Tube Ascorbic Acid 500 mg 09/08/20 22:00 09/21/20 10:15 Ascorbic Acid 500 Mg Tab PO 500 mg BID ISIAH Administration Cholecalciferol 1,000 unit 09/09/20 10:00 09/21/20 10:16 Cholecalciferol (Vit D3) 1000 Unit (25 Mcg) Tab PO 1,000 unit QDAY ISIAH Administration Famotidine 10 mg 09/14/20 22:00 09/21/20 10:14 Famotidine 20 Mg/2 Ml Inj IV 10 mg BID ISIAH Administration Fentanyl 50 mcg 09/13/20 12:12 Fentanyl 100 Mcg/2 Ml Inj IV Q10MIN PRN ANALGESIA Guaifenesin 10 ml 09/09/20 16:01 09/10/20 05:14 Guaifenesin Dm 200/20 Mg Oral Liqd 10 Ml PO 10 ml Q4H PRN Administration Cough Hydralazine HCl 10 mg 09/11/20 21:33 Hydralazine 20 Mg/1 Ml Inj IV Q4H PRN Hypertension Fentanyl Citrate 2,000 mcg in 100 mls @ 7.45 mls/hr 09/10/20 23:00 09/21/20 11:14 Fentanyl Drip Premix IV 4 mcg/kg/hr TITR ISIAH 29.8 mls/hr Administration Protocol 1 MCG/KG/HR Vasopressin 20 unit/ Sodium 101 mls @ 9.09 mls/hr 09/11/20 22:00 09/21/20 00:10 Chloride IV 0.03 units/min TITR ISIAH 9.09 mls/hr Administration Protocol 0.03 UNITS/MIN Midazolam HCl 100 mg/ Sodium 100 mls @ 1 mls/hr 09/12/20 17:30 09/21/20 00:57 Chloride IV 4 mg/hr TITR ISIAH 4 mls/hr Administration Protocol 1 MG/HR Propofol 1,000 mg in 100 mls @ 4.47 mls/hr 09/13/20 13:00 09/19/20 02:24 Diprivan 10 Mg/Ml IV 0 mcg/kg/min TITR ISIAH 0 mls/hr Titration Protocol 5 MCG/KG/MIN Sodium Chloride 1,000 mls @ 110 mls/hr 09/15/20 05:30 Nacl 0.9% 1000 Ml IV DIRECT ISIAH Cefepime HCl 1 gm in 100 mls @ 200 mls/hr 09/18/20 20:00 09/20/20 17:31 Cefepime/Ns 1 Gm/100 Ml IV 200 mls/hr QPM ISIAH Administration Protocol Fluconazole 200 mg in 100 mls @ 100 mls/hr 09/18/20 14:00 09/20/20 15:36 Diflucan IV 100 mls/hr Q24H ISIAH Administration NORepinephrine/NS 8 MG-250 ML 8 mg in 250 mls @ 3.75 mls/hr 09/20/20 10:00 09/21/20 04:40 Norepinephrine/Ns 8 Mg-250 Ml (Double Conc) IV 10 mcg/min TITRATE ISIAH 18.75 mls/hr Administration Protocol 2 MCG/MIN Sodium Chloride 100 mls @ 999 mls/hr 09/21/20 09:30 Nacl 0.9% IV NABEEL PRN Hypotension Insulin Human Lispro 0 unit 09/11/20 12:00 09/21/20 06:01 Insulin Lispro 100 Unit/Ml SUB-Q Not Given Q6HR ISIAH Protocol Metoclopramide HCl 5 mg 09/19/20 12:00 09/21/20 06:01 Metoclopramide 10 Mg/2 Ml Inj IV 5 mg Q8H ISIAH Administration Midazolam HCl 2 mg 09/12/20 17:30 09/13/20 12:05 Midazolam 2 Mg/2 Ml Inj IV 2 mg Q10MIN PRN Administration Sedation Senna/Docusate Sodium 2 tab 09/19/20 12:00 09/21/20 10:15 Sennosides/Docusate Sodium 8.6/50 Mg Tab PO 2 tab BID ISIAH Administration Simple Syrup 15 ml 09/11/20 11:45 Simple Syrup 15 Ml FEEDTUBE PRN PRN Hypoglycemia Simple Syrup 30 ml 09/11/20 11:45 Simple Syrup 15 Ml FEEDTUBE PRN PRN Hypoglycemia Sodium Bicarbonate 325 mg 09/11/20 11:45 Sodium Bicarbonate 325 Mg Tab FEEDTUBE PRN PRN For Clogged Feeding Tube Sodium Chloride 10 ml 09/08/20 22:00 09/21/20 11:17 Sodium Chloride 0.9% 10 Ml Flush Syringe IV 10 ml BID ISIAH Administration Sodium Chloride 10 ml 09/08/20 20:23 Sodium Chloride 0.9% 10 Ml Flush Syringe IV PRN PRN LINE FLUSH Zinc Sulfate 220 mg 09/08/20 22:00 09/21/20 10:16 Zinc Sulfate 220 Mg Cap PO 220 mg BID ISIAH Administration Nutrition/Malnutrition Assess - Dietary Evaluation Nutrition/Malnutrition Findings: Nutrition Notes Start: 09/11/20 11: 37 Freq: Status: Active Protocol: Document 09/21/20 11:02 SOURAV (Rec: 09/21/20 11:07 [id number]) Nutrition Notes Initial or Follow up Reassessment Current Diagnosis Acute Kidney Injury, Respiratory Failure Other Pertinent Diagnosis pneu, COVID Current Diet Nepro 1.8 at 40 ml/hr Labs/Tests K 5.3 BUN 103 Cr 6.3 Pertinent Medications Vasopressin Norepi Reglan Height 5 ft 8 in Weight 149 kg [place] Body Weight (kg) 63.63 BMI 49.9 Weight Status Morbidly Obese Subjective/Other Information Pt with 400 ml residuals yesterday. TF at 10 ml/hr per MD. Percent of energy/protein needs met: 24%/12% Burn Absent Trauma Absent Current % PO Negligible Minimum of two criteria No physical signs of malnutrition #1 Nutrition Diagnosis Inadequate oral intake Diagnosis Progress(for reassessment Continues documentation) Is patient on ventilator? Yes Is Patient Ambulatory and/or Out of Bed No REE-([facility]-confined to bed) 2457.420 Kcal/Kg value to use for calculation 12 Approximate Energy Requirements Using 1788 kcal/Kg Calculation Used for Recommendations Kcal/kg Additional Notes Protein: up to 2.5g/kg IBW (up to 159g) Fluid: 1 ml/kcal or per MD Nutrition Intervention Change Diet Order: Continue as tolerated Nutrition Support: 16 Hr Prone: For 16h proned - Nepro 1.8 at 20 ml/hr Flush 50 ml q4h For 8 h supine - Nepro 1.8 at 80 ml/hr (or as tolerated). Flush 250 q4h When finished proning: Nepro 1 .8 at 40 ml/hr Flush 175 ml q4h or per MD Kcal 1,728 Protein (gm) 78 Fluid (mL) 698 Goal #1 Meet protein and energy needs via TF as best as possible Anticipated Discharge Needs: Unable to determine at this time Follow-Up By: 09/25/20 Additional Comments FU for TF tolerance and proning
[2020-09-21] MEDS: MIDAZOLAM 2 MG/2 ML INJ IV PRN (11:46)
--- NOTE | 2020-09-21 13:40 | Progress Note ---
Assessment and Plan Cultures: SARS CoV2 PCR: Positive 09/08/2020 blood culture: No growth 09/08/2020 urine culture: Usual skin stefania A/P: 75-year-old female with hypertension, diabetes, obesity hypoventilation syndrome was admitted to the hospital with cough, shortness of breath, not feeling well: #Shock, likely septic: no clear evidence of bacterial infection. Completed empiric CAP coverage. Probably related to severe/critical COVID. Rise in procal now probably from renal failure. #Bilateral COVID-19 pneumonia: critical disease. Remdesivir was discontinued due to worsening renal failure. #Coagulase-negative staph bacteremia: In 1 set contaminant. #Acute hypoxic respiratory failure: On the vent with very high requirements. #Morbid obesity #Hypertension, diabetes #Leukopenia, mild thrombocytopenia, transaminitis: Likely related to COVID-19 #NICOLASA: worse, now requiring dialysis. Recs: -Patient now with increasing pressor requirements continue empiric broad- spectrum antibiotics: escalated to meropenem, fluconazole. However, may be non- infectious source of fevers. -Follow-up culture data -continue steroids, higher dose due to morbid obesity. -Worsening inflammatory markers -> ?worsening ARDS, ?HLH -IV Tocilizumab administered 09/12/2020 (remdesivir course was not completed due to worsening renal failure) -significantly high d-dimer, agree with anticoagulation -very poor prognosis Trang Narayanan MD [facility] O: [phone] F: [phone] Subjective Date of service: 09/21/20 Principal diagnosis: Ac hypoxemic resp failure; ARDS; COVID-19 infxn; PNA; DM II; Obesity Interval history: Febrile to 103 with a white count of 33 remains ventilated. Objective - Exam Narrative Exam: Physical exam deferred to reduce risk of transmission of COVID-19. Please refer to primary team's note. - Constitutional Vitals: Vital Signs Temp Pulse Resp BP Pulse Ox 102.3 F H 134 H 30 H 107/59 91 09/21/20 12:00 09/21/20 11:20 09/21/20 08:37 09/21/20 11:20 09/21/20 11:20 Temperature -Last 24 Hours Temperature 102.3 F Temperature 102.6 F Temperature 98.8 F Temperature 100.3 F Temperature 100.1 F Temperature 100.6 F Temperature 100.5 F - Labs CBC & Chem 7: 09/21/20 04:45 09/21/20 04:45 Labs: Abnormal lab results 09/20/20 09/20/20 09/21/20 Range/Units 17:46 17:48 01:08 WBC (4.5-11.0) K/mm3 RBC (3.65-5.03) M/mm3 Hgb (10.1-14.3) gm/dl Plt Count (140-440) K/mm3 ABG pH (7.320-7.450) POC ABG pO2 (83-108) mmHg ABG Hemoglobin (12.0-17.5) ABG Potassium (3.40-4.50) mmol/L ABG Glucose (65-95) mg/dL Potassium (3.6-5.0) mmol/L BUN (7-17) mg/dL Creatinine (0.6-1.2) mg/dL Glucose (65-100) mg/dL POC Glucose 24 L 156 H 158 H (70-105) mg/dL Calcium (8.4-10.2) mg/dL Arterial Blood Glucose (65-95) mg/dL Arterial Blood Ionized Calcium (4.6-5.3) mg/dL 09/21/20 09/21/20 09/21/20 Range/Units 03:10 04:45 04:45 WBC 33.2 H (4.5-11.0) K/mm3 RBC 3.20 L (3.65-5.03) M/mm3 Hgb 9.9 L (10.1-14.3) gm/dl Plt Count 14 L* (140-440) K/mm3 ABG pH 7.201 L (7.320-7.450) POC ABG pO2 180.8 H (83-108) mmHg ABG Hemoglobin 10.6 L (12.0-17.5) ABG Potassium 4.9 H (3.40-4.50) mmol/L ABG Glucose 130 H (65-95) mg/dL Potassium 5.3 H (3.6-5.0) mmol/L BUN 103 H (7-17) mg/dL Creatinine 6.3 H (0.6-1.2) mg/dL Glucose 129 H (65-100) mg/dL POC Glucose (70-105) mg/dL Calcium 8.3 L (8.4-10.2) mg/dL Arterial Blood Glucose 130 H (65-95) mg/dL Arterial Blood Ionized Calcium 4.4 L (4.6-5.3) mg/dL 09/21/20 Range/Units 12:11 WBC (4.5-11.0) K/mm3 RBC (3.65-5.03) M/mm3 Hgb (10.1-14.3) gm/dl Plt Count (140-440) K/mm3 ABG pH (7.320-7.450) POC ABG pO2 (83-108) mmHg ABG Hemoglobin (12.0-17.5) ABG Potassium (3.40-4.50) mmol/L ABG Glucose (65-95) mg/dL Potassium (3.6-5.0) mmol/L BUN (7-17) mg/dL Creatinine (0.6-1.2) mg/dL Glucose (65-100) mg/dL POC Glucose 123 H (70-105) mg/dL Calcium (8.4-10.2) mg/dL Arterial Blood Glucose (65-95) mg/dL Arterial Blood Ionized Calcium (4.6-5.3) mg/dL
[2020-09-21] MEDS ORDERED: ALBUMIN HUMAN 25% (25 GM/100 ML) INJ IV ONE (14:00)
[2020-09-21] MEDS ORDERED: MEROPENEM/NS 500 MG/50 ML 500 MG/50 ML BAG IV SCH (14:00)
[2020-09-21] MEDS: PHENYLEPHRINE 100 MG in SODIUM CHLORIDE 0.9% 90 ML IV SCH (14:13)
[2020-09-21] MEDS: FLUCONAZOLE 200 MG 200 MG/100 ML BAG IV SCH (14:16)
[2020-09-21] MEDS: MEROPENEM/NS 1 GRAM/100 ML 1 GRAM/100 ML BAG IV SCH (15:20)
--- NOTE | 2020-09-21 16:33 | Progress Note ---
Assessment and Plan Acute hypoxemic respiratory failure Acute respiratory distress syndrome COVID-19 infection Bilateral pneumonia Severe Sepsis Thrombocytopenia Diabetes Hypertension Obesity Leukopenia Elevated serum inflammatory markers to include D-dimer, ferritin and LDH - begin Neosynephrine and wean Levophed re: tachyarrythmia's - hematology consult placed - repeat platelet count in am - keep peep at 18 cm H2O - continue Reglan to 10 mg IV q8h - HD/UF per nephrology prescription for toxin and volume clearance - follow HIT assay - continue care as below otherwise; - continue to hold proning re: risk of decompensation and especially at time of un-proning which has been met with severe worsening of hypoxemia; also she is showing improvement with avoidance of supine position as much as possible - continue HD/UF for toxin and volume clearance - repeat CBC in am re: thrombocytopenia - continue to wean vasopressors for target MAP > 65 mmHg - continue chacon catheter for strict I's & O's - continue Daily SAT and SBT assessment as tolerated - continue to wean supplemental oxygen for target O2 sat's > 90% acutely - VAP bundle addressed - continue lung protective strategies - continue bronchodilators with pulmonary hygiene per RT - wean per pulmonary driven protocols otherwise - avoid nephrotoxins, renally dose all medications - continue accuchecks with glycemic control per SSI (While critically ill target blood glucose of 140-180 mg/dL; avoid hypoglycemia) - sedation prn for target RASS 0 to -1 - continue to avoid benzodiazepine's, reduce the possibility of delirium - complete AB's per ID rec's - prn analgesia per CPOT score - Maintenance of sleep-wake cycle, avoid delirium - continue enteral nutritional support at goal rate as tolerated - G.I. & VTE prophylaxis - PT/OT/ROM exercises - continue mobility protocols for pressure ulcer prophylaxis - Monitor hemodynamics closely - continue other care per attending / other consultants - discharge planning ongoing concurrently COVID SPECIFIC INTERVENTIONS - Remdesivir as per ID/Pulmonary developed protocols (ordered) - to receive Actemra - continue systemic steroids for severe COVID-19 infection empirically - follow repeat COVID tests results - zinc and vitamin C supplementation - Monitor inflammatory markers per facility protocol - ferritin, Ddimer, CRP - therapeutic anticoagulation per system Protocol based on d-dimer and clinical considerations - Continue contact and airborne isolation .... Re-evaluate in am & prn CONDITION: CRITICAL PROGNOSIS: GUARDED CODE STATUS: FULL CODE The high probability of a clinically significant, sudden or life-threatening deterioration of the [respiratory, cardiovascular & neurologic] system(s) required my full and direct attention, intervention and personal management. The aggregate critical care time was [32] minutes without overlap. Time includes spent on; [x] Data Review and interpretation [x] Patient assessment and monitoring of vital signs [x] Documentation [x] Medication orders and management Subjective Date of service: 09/21/20 Principal diagnosis: Ac hypoxemic resp failure; ARDS; COVID-19 infxn; PNA; DM II; Obesity Interval history: Patient is seen today for: Ac hypoxemic resp failure; ARDS; COVID-19 infxn; PNA; DM II; Obesity Seen and examined at bedside; 24hour events reviewed; nursing and respiratory care staff consulted; no adverse overnight events reported to me; resting in bed; remains on MVS; remains with ARDS; remains hypotensive but with tachycardia now; platelets down to 14k and awaiting transfusion Objective Vital Signs - 12hr 09/21/20 09/21/20 09/21/20 05:00 05:30 06:00 Temperature Pulse Rate 126 H 127 H 125 H Pulse Rate [ Anterior Bilateral Throughout] Respiratory 30 H 30 H 30 H Rate Respiratory Rate [Anterior Bilateral Throughout] Blood Pressure 104/56 105/59 105/57 O2 Sat by Pulse 95 97 96 Oximetry O2 Sat by Pulse Oximetry [ Anterior Bilateral Throughout] 09/21/20 09/21/20 09/21/20 06:30 07:00 07:30 Temperature 102.6 F H Pulse Rate 125 H 127 H 128 H Pulse Rate [ Anterior Bilateral Throughout] Respiratory 30 H 30 H 30 H Rate Respiratory Rate [Anterior Bilateral Throughout] Blood Pressure 110/56 105/57 111/60 O2 Sat by Pulse 97 97 96 Oximetry O2 Sat by Pulse Oximetry [ Anterior Bilateral Throughout] 09/21/20 09/21/20 09/21/20 08:00 08:25 08:37 Temperature Pulse Rate 128 H 128 H Pulse Rate [ 93 H Anterior Bilateral Throughout] Respiratory 30 H Rate Respiratory 30 H Rate [Anterior Bilateral Throughout] Blood Pressure 101/59 101/59 O2 Sat by Pulse 90 90 Oximetry O2 Sat by Pulse Oximetry [ Anterior Bilateral Throughout] 09/21/20 09/21/20 09/21/20 11:20 12:00 13:17 Temperature 102.3 F H Pulse Rate 134 H Pulse Rate [ Anterior Bilateral Throughout] Respiratory Rate Respiratory Rate [Anterior Bilateral Throughout] Blood Pressure 107/59 O2 Sat by Pulse 91 94 Oximetry O2 Sat by Pulse Oximetry [ Anterior Bilateral Throughout] 09/21/20 09/21/20 09/21/20 14:06 14:45 15:00 Temperature 102.3 F H Pulse Rate 127 H 130 H 127 H Pulse Rate [ Anterior Bilateral Throughout] Respiratory 30 H Rate Respiratory Rate [Anterior Bilateral Throughout] Blood Pressure 103/51 97/50 127/75 O2 Sat by Pulse Oximetry O2 Sat by Pulse 86 Oximetry [ Anterior Bilateral Throughout] 09/21/20 09/21/20 09/21/20 15:15 15:30 15:45 Temperature Pulse Rate 123 H 123 H 121 H Pulse Rate [ Anterior Bilateral Throughout] Respiratory Rate Respiratory Rate [Anterior Bilateral Throughout] Blood Pressure 144/54 158/73 161/68 O2 Sat by Pulse Oximetry O2 Sat by Pulse Oximetry [ Anterior Bilateral Throughout] 09/21/20 09/21/20 09/21/20 15:56 16:00 16:15 Temperature Pulse Rate 121 H 119 H 119 H Pulse Rate [ Anterior Bilateral Throughout] Respiratory Rate Respiratory Rate [Anterior Bilateral Throughout] Blood Pressure 161/68 157/58 167/63 O2 Sat by Pulse 95 Oximetry O2 Sat by Pulse Oximetry [ Anterior Bilateral Throughout] 09/21/20 16:30 Temperature Pulse Rate 118 H Pulse Rate [ Anterior Bilateral Throughout] Respiratory Rate Respiratory Rate [Anterior Bilateral Throughout] Blood Pressure 154/70 O2 Sat by Pulse Oximetry O2 Sat by Pulse Oximetry [ Anterior Bilateral Throughout] Constitutional: appears uncomfortable, other (elderly obese female with mildly increased respiratory effort at rest on MVS) Eyes: non-icteric ENT: oropharynx moist, other (ETT 24 cm STEVEN) Neck: supple, other (large circumference) Effort: mildly labored Ascultation: Bilateral: diminished breath sounds, rhonchi Percussion: Bilateral: not dull Cardiovascular: regular rate and rhythm Gastrointestinal: normoactive bowel sounds, soft, non-tender, non-distended (protuberant) Integumentary: other (some excoriation to skin of face) Extremities: no cyanosis, pulses normal, no ischemia or petechiae, edema (1+) Neurologic: pupils equal and round, motor strength normal and, unable to assess, other (sedated) Psychiatric: other (unable to assess) CBC and BMP: 09/22/20 04:45 09/22/20 04:45 ABG, PT/INR, D-dimer: ABG ABG pH 7.201 (7.320-7.450) L 09/21/20 03:10 POC ABG pCO2 46.6 mmHg (32.0-48.0) 09/21/20 03:10 POC ABG pO2 180.8 mmHg (83-108) H 09/21/20 03:10 POC ABG HCO3 17.8 09/21/20 03:10 ABG O2 Saturation 98.9 (0-100) 09/21/20 03:10 PT/INR, D-dimer PT 18.8 Sec. (12.2-14.9) H 09/15/20 14:00 INR 1.52 (0.87-1.13) H 09/15/20 14:00 D-Dimer > 19147 ng/mlDDU (0-234) H 09/19/20 05:12 Abnormal lab findings: Abnormal Labs 09/08/20 09/08/20 09/08/20 17:37 17:37 17:37 WBC 4.3 L RBC Hgb Hct RDW Plt Count 106 L Lymph % (Auto) [place] % (Auto) 7.5 H Lymph # (Auto) 0.6 L Seg Neutrophils % 77.4 H Seg Neuts % (Manual) Lymphocytes % (Manual) Seg Neutrophils # Seg Neutrophils # Man Lymphocytes # (Manual) PT INR D-Dimer 741.67 H Heparin Anti-Xa Level ABG pH POC ABG pCO2 POC ABG pO2 ABG Hemoglobin ABG Oxyhemoglobin ABG Sodium ABG Potassium ABG Chloride ABG Glucose Carboxyhemoglobin Sodium 129 L Potassium Chloride 91.9 L Carbon Dioxide BUN 32 H Creatinine 1.5 H Glucose 200 H POC Glucose Calcium 8.1 L Phosphorus Magnesium Ferritin AST 49 H Lactate Dehydrogenase C-Reactive Protein Total Protein Albumin 2.7 L TSH Arterial Blood Glucose Arterial Blood Ionized Calcium Ur Specific Bryce Urine Creatinine Coronavirus (PCR) 09/08/20 09/08/20 09/08/20 17:37 17:37 22:24 WBC RBC Hgb Hct RDW Plt Count Lymph % (Auto) [place] % (Auto) Lymph # (Auto) Seg Neutrophils % Seg Neuts % (Manual) Lymphocytes % (Manual) Seg Neutrophils # Seg Neutrophils # Man Lymphocytes # (Manual) PT INR D-Dimer Heparin Anti-Xa Level ABG pH POC ABG pCO2 POC ABG pO2 ABG Hemoglobin ABG Oxyhemoglobin ABG Sodium ABG Potassium ABG Chloride ABG Glucose Carboxyhemoglobin Sodium Potassium Chloride Carbon Dioxide BUN Creatinine Glucose 201 H POC Glucose Calcium Phosphorus Magnesium Ferritin 731.2 H AST Lactate Dehydrogenase 396 H C-Reactive Protein 7.00 H Total Protein Albumin TSH Arterial Blood Glucose Arterial Blood Ionized Calcium Ur Specific Bryce 1.035 H Urine Creatinine Coronavirus (PCR) 09/08/20 09/09/20 09/09/20 23:35 07:30 08:28 WBC 3.4 L RBC Hgb 15.5 H Hct 47.1 H RDW Plt Count 95 L Lymph % (Auto) 9.5 L [place] % (Auto) Lymph # (Auto) 0.3 L Seg Neutrophils % 85.2 H Seg Neuts % (Manual) Lymphocytes % (Manual) Seg Neutrophils # Seg Neutrophils # Man Lymphocytes # (Manual) PT INR D-Dimer Heparin Anti-Xa Level ABG pH POC ABG pCO2 POC ABG pO2 ABG Hemoglobin ABG Oxyhemoglobin ABG Sodium ABG Potassium ABG Chloride ABG Glucose Carboxyhemoglobin Sodium Potassium Chloride Carbon Dioxide BUN Creatinine Glucose POC Glucose 188 H 281 H Calcium Phosphorus Magnesium Ferritin AST Lactate Dehydrogenase C-Reactive Protein Total Protein Albumin TSH Arterial Blood Glucose Arterial Blood Ionized Calcium Ur Specific Bryce Urine Creatinine Coronavirus (PCR) 09/09/20 09/09/20 09/09/20 08:28 09:00 11:48 WBC RBC Hgb Hct RDW Plt Count Lymph % (Auto) [place] % (Auto) Lymph # (Auto) Seg Neutrophils % Seg Neuts % (Manual) Lymphocytes % (Manual) Seg Neutrophils # Seg Neutrophils # Man Lymphocytes # (Manual) PT INR D-Dimer Heparin Anti-Xa Level ABG pH POC ABG pCO2 POC ABG pO2 ABG Hemoglobin ABG Oxyhemoglobin ABG Sodium ABG Potassium ABG Chloride ABG Glucose Carboxyhemoglobin Sodium 130 L Potassium Chloride 93.5 L Carbon Dioxide BUN 31 H Creatinine 1.3 H Glucose 266 H POC Glucose 354 H Calcium Phosphorus Magnesium Ferritin AST 48 H Lactate Dehydrogenase C-Reactive Protein Total Protein Albumin 2.8 L TSH Arterial Blood Glucose Arterial Blood Ionized Calcium Ur Specific Bryce Urine Creatinine Coronavirus (PCR) Positive A 07/24/21 07/24/21 07/25/21 17:21 21:15 08:00 WBC RBC Hgb Hct RDW Plt Count Lymph % (Auto) [place] % (Auto) Lymph # (Auto) Seg Neutrophils % Seg Neuts % (Manual) Lymphocytes % (Manual) Seg Neutrophils # Seg Neutrophils # Man Lymphocytes # (Manual) PT INR D-Dimer Heparin Anti-Xa Level ABG pH POC ABG pCO2 POC ABG pO2 ABG Hemoglobin ABG Oxyhemoglobin ABG Sodium ABG Potassium ABG Chloride ABG Glucose Carboxyhemoglobin Sodium Potassium Chloride Carbon Dioxide BUN Creatinine Glucose POC Glucose 332 H 226 H 240 H Calcium Phosphorus Magnesium Ferritin AST Lactate Dehydrogenase C-Reactive Protein Total Protein Albumin TSH Arterial Blood Glucose Arterial Blood Ionized Calcium Ur Specific Bryce Urine Creatinine Coronavirus (PCR) 09/10/20 09/10/20 09/10/20 12:12 15:14 16:43 WBC RBC Hgb Hct RDW Plt Count Lymph % (Auto) [place] % (Auto) Lymph # (Auto) Seg Neutrophils % Seg Neuts % (Manual) Lymphocytes % (Manual) Seg Neutrophils # Seg Neutrophils # Man Lymphocytes # (Manual) PT INR D-Dimer Heparin Anti-Xa Level ABG pH POC ABG pCO2 48.5 H POC ABG pO2 51.9 L ABG Hemoglobin ABG Oxyhemoglobin 85.1 L ABG Sodium 135.6 L ABG Potassium ABG Chloride ABG Glucose 310 H Carboxyhemoglobin Sodium 132 L Potassium Chloride 93.2 L Carbon Dioxide BUN 43 H Creatinine 1.6 H Glucose 277 H POC Glucose 267 H Calcium Phosphorus Magnesium Ferritin AST 49 H Lactate Dehydrogenase C-Reactive Protein Total Protein 8.3 H Albumin 3.0 L TSH Arterial Blood Glucose 310 H Arterial Blood Ionized Calcium Ur Specific [place]ce Urine Creatinine Coronavirus (PCR) 09/10/20 09/10/20 09/11/20 21:34 23:33 05:56 WBC RBC Hgb Hct RDW Plt Count Lymph % (Auto) [place] % (Auto) Lymph # (Auto) Seg Neutrophils % Seg Neuts % (Manual) Lymphocytes % (Manual) Seg Neutrophils # Seg Neutrophils # Man Lymphocytes # (Manual) PT INR D-Dimer Heparin Anti-Xa Level ABG pH POC ABG pCO2 POC ABG pO2 ABG Hemoglobin ABG Oxyhemoglobin ABG Sodium 135.9 L ABG Potassium ABG Chloride ABG Glucose 341 H Carboxyhemoglobin Sodium 133 L Potassium Chloride 94.2 L Carbon Dioxide BUN 54 H Creatinine 1.6 H Glucose 318 H POC Glucose 306 H Calcium Phosphorus Magnesium Ferritin AST 46 H Lactate Dehydrogenase C-Reactive Protein Total Protein Albumin 2.7 L TSH Arterial Blood Glucose 341 H Arterial Blood Ionized Calcium 4.5 L Ur Specific Bryce Urine Creatinine Coronavirus (PCR) 09/11/20 09/11/20 09/11/20 05:56 07:22 09:00 WBC RBC Hgb Hct RDW Plt Count Lymph % (Auto) [place] % (Auto) Lymph # (Auto) Seg Neutrophils % Seg Neuts % (Manual) Lymphocytes % (Manual) Seg Neutrophils # Seg Neutrophils # Man Lymphocytes # (Manual) PT INR D-Dimer Heparin Anti-Xa Level ABG pH POC ABG pCO2 POC ABG pO2 80.1 L ABG Hemoglobin ABG Oxyhemoglobin ABG Sodium 134.5 L ABG Potassium ABG Chloride ABG Glucose 334 H Carboxyhemoglobin Sodium Potassium Chloride Carbon Dioxide BUN Creatinine Glucose POC Glucose 305 H Calcium Phosphorus Magnesium Ferritin AST Lactate Dehydrogenase 755 H C-Reactive Protein 5.50 H Total Protein Albumin TSH Arterial Blood Glucose 334 H Arterial Blood Ionized Calcium Ur Specific [place]ce Urine Creatinine Coronavirus (PCR) 09/11/20 09/11/20 09/11/20 11:33 18:17 19:00 WBC RBC Hgb Hct RDW Plt Count Lymph % (Auto) [place] % (Auto) Lymph # (Auto) Seg Neutrophils % Seg Neuts % (Manual) Lymphocytes % (Manual) Seg Neutrophils # Seg Neutrophils # Man Lymphocytes # (Manual) PT INR D-Dimer Heparin Anti-Xa Level ABG pH POC ABG pCO2 POC ABG pO2 146.4 H ABG Hemoglobin ABG Oxyhemoglobin 98.3 H ABG Sodium ABG Potassium ABG Chloride ABG Glucose 267 H Carboxyhemoglobin 0.4 L Sodium Potassium Chloride Carbon Dioxide BUN Creatinine Glucose POC Glucose 304 H 296 H Calcium Phosphorus Magnesium Ferritin AST Lactate Dehydrogenase C-Reactive Protein Total Protein Albumin TSH Arterial Blood Glucose 267 H Arterial Blood Ionized Calcium Ur Specific Bryce Urine Creatinine Coronavirus (PCR) 09/11/20 09/11/20 09/11/20 20:30 22:23 Unknown WBC RBC Hgb Hct RDW Plt Count Lymph % (Auto) [place] % (Auto) Lymph # (Auto) Seg Neutrophils % Seg Neuts % (Manual) Lymphocytes % (Manual) Seg Neutrophils # Seg Neutrophils # Man Lymphocytes # (Manual) PT INR D-Dimer 1324.85 H Heparin Anti-Xa Level ABG pH POC ABG pCO2 POC ABG pO2 ABG Hemoglobin ABG Oxyhemoglobin ABG Sodium ABG Potassium ABG Chloride ABG Glucose Carboxyhemoglobin Sodium Potassium Chloride Carbon Dioxide BUN Creatinine Glucose POC Glucose 268 H Calcium Phosphorus Magnesium Ferritin 1434.0 H AST Lactate Dehydrogenase C-Reactive Protein Total Protein Albumin TSH Arterial Blood Glucose Arterial Blood Ionized Calcium Ur Specific [place] Urine Creatinine Coronavirus (PCR) 09/11/20 09/12/20 09/12/20 Unknown 04:00 05:30 WBC RBC Hgb Hct RDW Plt Count Lymph % (Auto) [place] % (Auto) Lymph # (Auto) Seg Neutrophils % Seg Neuts % (Manual) Lymphocytes % (Manual) Seg Neutrophils # Seg Neutrophils # Man Lymphocytes # (Manual) PT INR D-Dimer Heparin Anti-Xa Level ABG pH POC ABG pCO2 POC ABG pO2 190.7 H ABG Hemoglobin 17.7 H ABG Oxyhemoglobin 98.9 H ABG Sodium ABG Potassium ABG Chloride ABG Glucose 322 H Carboxyhemoglobin 0.2 L Sodium Potassium Chloride Carbon Dioxide BUN 58 H Creatinine 1.8 H Glucose 279 H POC Glucose 313 H Calcium 7.9 L Phosphorus Magnesium Ferritin AST Lactate Dehydrogenase C-Reactive Protein Total Protein Albumin TSH Arterial Blood Glucose 322 H Arterial Blood Ionized Calcium Ur Specific [place] Urine Creatinine Coronavirus (PCR) 09/12/20 09/12/20 09/12/20 08:43 11:58 13:30 WBC RBC Hgb Hct RDW Plt Count Lymph % (Auto) [place] % (Auto) Lymph # (Auto) Seg Neutrophils % Seg Neuts % (Manual) Lymphocytes % (Manual) Seg Neutrophils # Seg Neutrophils # Man Lymphocytes # (Manual) PT INR D-Dimer Heparin Anti-Xa Level ABG pH POC ABG pCO2 POC ABG pO2 ABG Hemoglobin ABG Oxyhemoglobin ABG Sodium ABG Potassium ABG Chloride ABG Glucose Carboxyhemoglobin Sodium Potassium Chloride Carbon Dioxide BUN 51 H Creatinine 1.4 H Glucose 317 H POC Glucose 329 H Calcium Phosphorus Magnesium Ferritin AST Lactate Dehydrogenase C-Reactive Protein Total Protein Albumin 3.0 L TSH Arterial Blood Glucose Arterial Blood Ionized Calcium Ur Specific Bryce Urine Creatinine 43.2 H Coronavirus (PCR) 09/12/20 09/12/20 09/12/20 17:17 17:17 17:55 WBC RBC Hgb 14.5 H Hct 43.5 H RDW Plt Count Lymph % (Auto) [place] % (Auto) Lymph # (Auto) Seg Neutrophils % Seg Neuts % (Manual) 96.0 H Lymphocytes % (Manual) 1.0 L Seg Neutrophils # Seg Neutrophils # Man 9.8 H Lymphocytes # (Manual) 0.1 L PT INR D-Dimer Heparin Anti-Xa Level ABG pH POC ABG pCO2 POC ABG pO2 ABG Hemoglobin ABG Oxyhemoglobin ABG Sodium ABG Potassium ABG Chloride ABG Glucose Carboxyhemoglobin Sodium Potassium Chloride Carbon Dioxide BUN Creatinine Glucose POC Glucose 425 H Calcium Phosphorus Magnesium Ferritin AST Lactate Dehydrogenase C-Reactive Protein Total Protein Albumin TSH 0.067 L Arterial Blood Glucose Arterial Blood Ionized Calcium Ur Specific [place] Urine Creatinine Coronavirus (PCR) 09/12/20 09/13/20 09/13/20 23:19 03:32 04:22 WBC RBC Hgb Hct RDW Plt Count Lymph % (Auto) [place] % (Auto) Lymph # (Auto) Seg Neutrophils % Seg Neuts % (Manual) Lymphocytes % (Manual) Seg Neutrophils # Seg Neutrophils # Man Lymphocytes # (Manual) PT INR D-Dimer Heparin Anti-Xa Level ABG pH 7.276 L 7.275 L POC ABG pCO2 54.0 H 54.7 H POC ABG pO2 46.6 L 47.1 L ABG Hemoglobin ABG Oxyhemoglobin 78.9 L 79.4 L ABG Sodium ABG Potassium ABG Chloride ABG Glucose 260 H 261 H Carboxyhemoglobin Sodium Potassium Chloride Carbon Dioxide BUN Creatinine Glucose POC Glucose 348 H Calcium Phosphorus Magnesium Ferritin AST Lactate Dehydrogenase C-Reactive Protein Total Protein Albumin TSH Arterial Blood Glucose 260 H 261 H Arterial Blood Ionized Calcium Ur Specific Bryce Urine Creatinine Coronavirus (PCR) 09/13/20 09/13/20 09/13/20 04:52 11:53 17:13 WBC RBC Hgb Hct RDW Plt Count Lymph % (Auto) [place] % (Auto) Lymph # (Auto) Seg Neutrophils % Seg Neuts % (Manual) Lymphocytes % (Manual) Seg Neutrophils # Seg Neutrophils # Man Lymphocytes # (Manual) PT INR D-Dimer Heparin Anti-Xa Level ABG pH POC ABG pCO2 POC ABG pO2 ABG Hemoglobin ABG Oxyhemoglobin ABG Sodium ABG Potassium ABG Chloride ABG Glucose Carboxyhemoglobin Sodium Potassium Chloride Carbon Dioxide BUN Creatinine Glucose POC Glucose 229 H 302 H 356 H Calcium Phosphorus Magnesium Ferritin AST Lactate Dehydrogenase C-Reactive Protein Total Protein Albumin TSH Arterial Blood Glucose Arterial Blood Ionized Calcium Ur Specific [place]ce Urine Creatinine Coronavirus (PCR) 09/13/20 09/13/20 09/13/20 23:46 Unknown Unknown WBC RBC Hgb Hct RDW Plt Count 135 L Lymph % (Auto) [place] % (Auto) Lymph # (Auto) Seg Neutrophils % Seg Neuts % (Manual) Lymphocytes % (Manual) Seg Neutrophils # Seg Neutrophils # Man Lymphocytes # (Manual) PT INR D-Dimer Heparin Anti-Xa Level ABG pH POC ABG pCO2 POC ABG pO2 ABG Hemoglobin ABG Oxyhemoglobin ABG Sodium ABG Potassium ABG Chloride ABG Glucose Carboxyhemoglobin Sodium Potassium Chloride Carbon Dioxide BUN 54 H Creatinine 1.6 H Glucose 255 H POC Glucose 263 H Calcium Phosphorus Magnesium Ferritin AST Lactate Dehydrogenase C-Reactive Protein Total Protein Albumin 2.8 L TSH Arterial Blood Glucose Arterial Blood Ionized Calcium Ur Specific [place]ce Urine Creatinine Coronavirus (PCR) 09/14/20 09/14/20 09/14/20 05:46 10:53 10:53 WBC RBC Hgb Hct RDW Plt Count Lymph % (Auto) [place] % (Auto) Lymph # (Auto) Seg Neutrophils % Seg Neuts % (Manual) Lymphocytes % (Manual) Seg Neutrophils # Seg Neutrophils # Man Lymphocytes # (Manual) PT INR D-Dimer > 01123 H Heparin Anti-Xa Level ABG pH POC ABG pCO2 POC ABG pO2 ABG Hemoglobin ABG Oxyhemoglobin ABG Sodium ABG Potassium ABG Chloride ABG Glucose Carboxyhemoglobin Sodium Potassium Chloride Carbon Dioxide BUN 71 H Creatinine 2.8 H D Glucose 167 H POC Glucose 226 H Calcium Phosphorus 4.90 H D Magnesium 2.40 H Ferritin AST Lactate Dehydrogenase C-Reactive Protein 5.40 H Total Protein 5.9 L Albumin 2.7 L TSH Arterial Blood Glucose Arterial Blood Ionized Calcium Ur Specific [place]ce Urine Creatinine Coronavirus (PCR) 09/14/20 09/14/20 09/14/20 11:33 13:45 17:29 WBC RBC Hgb Hct RDW Plt Count Lymph % (Auto) [place] % (Auto) Lymph # (Auto) Seg Neutrophils % Seg Neuts % (Manual) Lymphocytes % (Manual) Seg Neutrophils # Seg Neutrophils # Man Lymphocytes # (Manual) PT INR D-Dimer Heparin Anti-Xa Level ABG pH 7.225 L POC ABG pCO2 60.1 H POC ABG pO2 ABG Hemoglobin ABG Oxyhemoglobin ABG Sodium ABG Potassium 5.2 H ABG Chloride 109.0 H ABG Glucose 205 H Carboxyhemoglobin Sodium Potassium Chloride Carbon Dioxide BUN Creatinine Glucose POC Glucose 166 H 202 H Calcium Phosphorus Magnesium Ferritin AST Lactate Dehydrogenase C-Reactive Protein Total Protein Albumin TSH Arterial Blood Glucose 205 H Arterial Blood Ionized Calcium Ur Specific [place]ce Urine Creatinine Coronavirus (PCR) 09/15/20 09/15/20 09/15/20 00:19 03:10 03:10 WBC 13.5 H RBC Hgb Hct RDW Plt Count 77 L Lymph % (Auto) 3.9 L [place] % (Auto) Lymph # (Auto) 0.5 L Seg Neutrophils % 89.9 H Seg Neuts % (Manual) Lymphocytes % (Manual) Seg Neutrophils # 12.1 H Seg Neutrophils # Man Lymphocytes # (Manual) PT INR D-Dimer Heparin Anti-Xa Level ABG pH POC ABG pCO2 POC ABG pO2 ABG Hemoglobin ABG Oxyhemoglobin ABG Sodium ABG Potassium ABG Chloride ABG Glucose Carboxyhemoglobin Sodium Potassium 5.7 H Chloride 107.7 H Carbon Dioxide 21 L BUN 85 H Creatinine 4.1 H Glucose 166 H POC Glucose 174 H Calcium Phosphorus Magnesium Ferritin AST Lactate Dehydrogenase C-Reactive Protein Total Protein 5.9 L Albumin 2.3 L TSH Arterial Blood Glucose Arterial Blood Ionized Calcium Ur Specific [place]ce Urine Creatinine Coronavirus (PCR) 09/15/20 09/15/20 09/15/20 03:10 03:10 05:34 WBC RBC Hgb Hct RDW Plt Count Lymph % (Auto) [place] % (Auto) Lymph # (Auto) Seg Neutrophils % Seg Neuts % (Manual) Lymphocytes % (Manual) Seg Neutrophils # Seg Neutrophils # Man Lymphocytes # (Manual) PT INR D-Dimer > 31708 H Heparin Anti-Xa Level ABG pH POC ABG pCO2 POC ABG pO2 ABG Hemoglobin ABG Oxyhemoglobin ABG Sodium ABG Potassium ABG Chloride ABG Glucose Carboxyhemoglobin Sodium Potassium Chloride Carbon Dioxide BUN Creatinine Glucose POC Glucose 146 H Calcium Phosphorus 6.50 H D Magnesium 2.40 H Ferritin AST Lactate Dehydrogenase C-Reactive Protein 3.90 H Total Protein Albumin TSH Arterial Blood Glucose Arterial Blood Ionized Calcium Ur Specific [place] Urine Creatinine Coronavirus (PCR) 09/15/20 09/15/20 09/15/20 06:12 12:30 13:25 WBC RBC Hgb Hct RDW Plt Count Lymph % (Auto) [place] % (Auto) Lymph # (Auto) Seg Neutrophils % Seg Neuts % (Manual) Lymphocytes % (Manual) Seg Neutrophils # Seg Neutrophils # Man Lymphocytes # (Manual) PT INR D-Dimer Heparin Anti-Xa Level ABG pH 7.178 L POC ABG pCO2 58.7 H POC ABG pO2 65.2 L ABG Hemoglobin ABG Oxyhemoglobin 90.5 L ABG Sodium ABG Potassium 5.1 H ABG Chloride 110.0 H ABG Glucose 173 H Carboxyhemoglobin Sodium Potassium 5.5 H 5.4 H Chloride 108.0 H Carbon Dioxide BUN 87 H 89 H Creatinine 4.3 H 4.2 H Glucose 151 H 180 H POC Glucose Calcium 8.2 L Phosphorus 6.70 H Magnesium Ferritin AST Lactate Dehydrogenase C-Reactive Protein Total Protein Albumin TSH Arterial Blood Glucose 173 H Arterial Blood Ionized Calcium Ur Specific [place]ce Urine Creatinine Coronavirus (PCR) 09/15/20 09/15/20 09/15/20 13:33 14:00 14:00 WBC RBC Hgb Hct RDW Plt Count 86 L Lymph % (Auto) [place] % (Auto) Lymph # (Auto) Seg Neutrophils % Seg Neuts % (Manual) Lymphocytes % (Manual) Seg Neutrophils # Seg Neutrophils # Man Lymphocytes # (Manual) PT 18.8 H INR 1.52 H D-Dimer Heparin Anti-Xa Level ABG pH POC ABG pCO2 POC ABG pO2 ABG Hemoglobin ABG Oxyhemoglobin ABG Sodium ABG Potassium ABG Chloride ABG Glucose Carboxyhemoglobin Sodium Potassium Chloride Carbon Dioxide BUN Creatinine Glucose POC Glucose 146 H Calcium Phosphorus Magnesium Ferritin AST Lactate Dehydrogenase C-Reactive Protein Total Protein Albumin TSH Arterial Blood Glucose Arterial Blood Ionized Calcium Ur Specific Bryce Urine Creatinine Coronavirus (PCR) 09/15/20 09/15/20 09/15/20 18:02 21:10 23:04 WBC RBC Hgb Hct RDW Plt Count Lymph % (Auto) [place] % (Auto) Lymph # (Auto) Seg Neutrophils % Seg Neuts % (Manual) Lymphocytes % (Manual) Seg Neutrophils # Seg Neutrophils # Man Lymphocytes # (Manual) PT INR D-Dimer Heparin Anti-Xa Level 0.78 H ABG pH POC ABG pCO2 POC ABG pO2 ABG Hemoglobin ABG Oxyhemoglobin ABG Sodium ABG Potassium ABG Chloride ABG Glucose Carboxyhemoglobin Sodium Potassium Chloride Carbon Dioxide BUN Creatinine Glucose POC Glucose 241 H 296 H Calcium Phosphorus Magnesium Ferritin AST Lactate Dehydrogenase C-Reactive Protein Total Protein Albumin TSH Arterial Blood Glucose Arterial Blood Ionized Calcium Ur Specific Bryce Urine Creatinine Coronavirus (PCR) 09/15/20 09/16/20 09/16/20 23:33 02:45 04:00 WBC 22.7 H RBC Hgb Hct RDW Plt Count 105 L Lymph % (Auto) [place] % (Auto) Lymph # (Auto) Seg Neutrophils % Seg Neuts % (Manual) Lymphocytes % (Manual) Seg Neutrophils # Seg Neutrophils # Man Lymphocytes # (Manual) PT INR D-Dimer Heparin Anti-Xa Level ABG pH 7.171 L POC ABG pCO2 57.1 H POC ABG pO2 144.1 H ABG Hemoglobin ABG Oxyhemoglobin ABG Sodium ABG Potassium 5.0 H ABG Chloride ABG Glucose 273 H Carboxyhemoglobin Sodium Potassium Chloride Carbon Dioxide BUN Creatinine Glucose POC Glucose 298 H Calcium Phosphorus Magnesium Ferritin AST Lactate Dehydrogenase C-Reactive Protein Total Protein Albumin TSH Arterial Blood Glucose 273 H Arterial Blood Ionized Calcium 4.5 L Ur Specific Bryce Urine Creatinine Coronavirus (PCR) 09/16/20 09/16/20 09/16/20 04:20 05:10 11:38 WBC RBC Hgb Hct RDW Plt Count Lymph % (Auto) [place] % (Auto) Lymph # (Auto) Seg Neutrophils % Seg Neuts % (Manual) Lymphocytes % (Manual) Seg Neutrophils # Seg Neutrophils # Man Lymphocytes # (Manual) PT INR D-Dimer Heparin Anti-Xa Level ABG pH POC ABG pCO2 POC ABG pO2 ABG Hemoglobin ABG Oxyhemoglobin ABG Sodium ABG Potassium ABG Chloride ABG Glucose Carboxyhemoglobin Sodium Potassium 5.4 H Chloride Carbon Dioxide BUN 75 H Creatinine 3.7 H Glucose 265 H POC Glucose 269 H 279 H Calcium Phosphorus Magnesium Ferritin AST 46 H Lactate Dehydrogenase C-Reactive Protein Total Protein 6.2 L Albumin 2.9 L TSH Arterial Blood Glucose Arterial Blood Ionized Calcium Ur Specific Bryce Urine Creatinine Coronavirus (PCR) 09/16/20 09/16/20 09/16/20 13:45 17:21 23:37 WBC RBC Hgb Hct RDW Plt Count Lymph % (Auto) [place] % (Auto) Lymph # (Auto) Seg Neutrophils % Seg Neuts % (Manual) Lymphocytes % (Manual) Seg Neutrophils # Seg Neutrophils # Man Lymphocytes # (Manual) PT INR D-Dimer Heparin Anti-Xa Level ABG pH 7.156 L POC ABG pCO2 59.8 H POC ABG pO2 48.2 L ABG Hemoglobin ABG Oxyhemoglobin 78.1 L ABG Sodium ABG Potassium 5.2 H ABG Chloride ABG Glucose 302 H Carboxyhemoglobin Sodium Potassium Chloride Carbon Dioxide BUN Creatinine Glucose POC Glucose 285 H 385 H Calcium Phosphorus Magnesium Ferritin AST Lactate Dehydrogenase C-Reactive Protein Total Protein Albumin TSH Arterial Blood Glucose 302 H Arterial Blood Ionized Calcium 4.4 L Ur Specific Bryce Urine Creatinine Coronavirus (PCR) 09/17/20 09/17/20 09/17/20 04:52 04:52 04:52 WBC 19.4 H RBC Hgb Hct RDW 15.5 H Plt Count 91 L Lymph % (Auto) [place] % (Auto) Lymph # (Auto) Seg Neutrophils % Seg Neuts % (Manual) Lymphocytes % (Manual) Seg Neutrophils # Seg Neutrophils # Man Lymphocytes # (Manual) PT INR D-Dimer > 20671 H Heparin Anti-Xa Level ABG pH POC ABG pCO2 POC ABG pO2 ABG Hemoglobin ABG Oxyhemoglobin ABG Sodium ABG Potassium ABG Chloride ABG Glucose Carboxyhemoglobin Sodium Potassium 5.1 H Chloride Carbon Dioxide BUN 68 H Creatinine 4.1 H Glucose 291 H POC Glucose Calcium 8.3 L Phosphorus 5.60 H Magnesium Ferritin AST Lactate Dehydrogenase 729 H C-Reactive Protein 5.30 H Total Protein Albumin TSH Arterial Blood Glucose Arterial Blood Ionized Calcium Ur Specific [place]ce Urine Creatinine Coronavirus (PCR) 09/17/20 09/17/20 09/17/20 04:52 05:20 12:02 WBC RBC Hgb Hct RDW Plt Count Lymph % (Auto) [place] % (Auto) Lymph # (Auto) Seg Neutrophils % Seg Neuts % (Manual) Lymphocytes % (Manual) Seg Neutrophils # Seg Neutrophils # Man Lymphocytes # (Manual) PT INR D-Dimer Heparin Anti-Xa Level ABG pH POC ABG pCO2 POC ABG pO2 ABG Hemoglobin ABG Oxyhemoglobin ABG Sodium ABG Potassium ABG Chloride ABG Glucose Carboxyhemoglobin Sodium Potassium Chloride Carbon Dioxide BUN Creatinine Glucose POC Glucose 312 H 240 H Calcium Phosphorus Magnesium Ferritin 1323.0 H AST Lactate Dehydrogenase C-Reactive Protein Total Protein Albumin TSH Arterial Blood Glucose Arterial Blood Ionized Calcium Ur Specific [place]ce Urine Creatinine Coronavirus (PCR) 08/01/21 08/01/21 08/02/21 17:52 23:19 05:06 WBC RBC Hgb Hct RDW Plt Count Lymph % (Auto) [place] % (Auto) Lymph # (Auto) Seg Neutrophils % Seg Neuts % (Manual) Lymphocytes % (Manual) Seg Neutrophils # Seg Neutrophils # Man Lymphocytes # (Manual) PT INR D-Dimer Heparin Anti-Xa Level ABG pH POC ABG pCO2 POC ABG pO2 ABG Hemoglobin ABG Oxyhemoglobin ABG Sodium ABG Potassium ABG Chloride ABG Glucose Carboxyhemoglobin Sodium Potassium Chloride Carbon Dioxide BUN Creatinine Glucose POC Glucose 242 H 304 H 233 H Calcium Phosphorus Magnesium Ferritin AST Lactate Dehydrogenase C-Reactive Protein Total Protein Albumin TSH Arterial Blood Glucose Arterial Blood Ionized Calcium Ur Specific [place] Urine Creatinine Coronavirus (PCR) 09/18/20 09/18/20 09/18/20 05:15 05:15 09:36 WBC 20.4 H RBC 3.51 L Hgb Hct RDW 15.3 H Plt Count 31 L Lymph % (Auto) [place] % (Auto) Lymph # (Auto) Seg Neutrophils % Seg Neuts % (Manual) Lymphocytes % (Manual) Seg Neutrophils # Seg Neutrophils # Man Lymphocytes # (Manual) PT INR D-Dimer Heparin Anti-Xa Level ABG pH 7.282 L POC ABG pCO2 POC ABG pO2 149.0 H ABG Hemoglobin 10.4 L ABG Oxyhemoglobin ABG Sodium 135.9 L ABG Potassium ABG Chloride ABG Glucose 221 H Carboxyhemoglobin Sodium 135 L Potassium Chloride Carbon Dioxide BUN 57 H Creatinine 4.1 H Glucose 228 H POC Glucose Calcium 7.5 L Phosphorus 5.20 H Magnesium Ferritin AST Lactate Dehydrogenase C-Reactive Protein Total Protein Albumin TSH Arterial Blood Glucose 221 H Arterial Blood Ionized Calcium 4.1 L Ur Specific [place]ce Urine Creatinine Coronavirus (PCR) 09/18/20 09/18/20 09/18/20 10:53 11:35 17:10 WBC RBC Hgb Hct RDW Plt Count Lymph % (Auto) [place] % (Auto) Lymph # (Auto) Seg Neutrophils % Seg Neuts % (Manual) Lymphocytes % (Manual) Seg Neutrophils # Seg Neutrophils # Man Lymphocytes # (Manual) PT INR D-Dimer Heparin Anti-Xa Level < 0.10 L ABG pH 7.200 L POC ABG pCO2 66.8 H POC ABG pO2 38.6 L ABG Hemoglobin ABG Oxyhemoglobin 68.0 L ABG Sodium ABG Potassium 4.9 H ABG Chloride ABG Glucose 266 H Carboxyhemoglobin Sodium Potassium Chloride Carbon Dioxide BUN Creatinine Glucose POC Glucose 238 H Calcium Phosphorus Magnesium Ferritin AST Lactate Dehydrogenase C-Reactive Protein Total Protein Albumin TSH Arterial Blood Glucose 266 H Arterial Blood Ionized Calcium Ur Specific [place] Urine Creatinine Coronavirus (PCR) 09/18/20 09/18/20 09/19/20 17:54 23:47 02:53 WBC RBC Hgb Hct RDW Plt Count Lymph % (Auto) [place] % (Auto) Lymph # (Auto) Seg Neutrophils % Seg Neuts % (Manual) Lymphocytes % (Manual) Seg Neutrophils # Seg Neutrophils # Man Lymphocytes # (Manual) PT INR D-Dimer Heparin Anti-Xa Level ABG pH 7.151 L POC ABG pCO2 58.1 H POC ABG pO2 ABG Hemoglobin 11.7 L ABG Oxyhemoglobin ABG Sodium ABG Potassium 4.7 H ABG Chloride ABG Glucose 225 H Carboxyhemoglobin Sodium Potassium Chloride Carbon Dioxide BUN Creatinine Glucose POC Glucose 241 H 241 H Calcium Phosphorus Magnesium Ferritin AST Lactate Dehydrogenase C-Reactive Protein Total Protein Albumin TSH Arterial Blood Glucose 225 H Arterial Blood Ionized Calcium Ur Specific [place] Urine Creatinine Coronavirus (PCR) 09/19/20 09/19/20 09/19/20 05:12 05:12 05:12 WBC RBC Hgb Hct RDW Plt Count 27 L Lymph % (Auto) [place] % (Auto) Lymph # (Auto) Seg Neutrophils % Seg Neuts % (Manual) Lymphocytes % (Manual) Seg Neutrophils # Seg Neutrophils # Man Lymphocytes # (Manual) PT INR D-Dimer > 47882 H Heparin Anti-Xa Level ABG pH POC ABG pCO2 POC ABG pO2 ABG Hemoglobin ABG Oxyhemoglobin ABG Sodium ABG Potassium ABG Chloride ABG Glucose Carboxyhemoglobin Sodium Potassium Chloride Carbon Dioxide BUN Creatinine Glucose POC Glucose Calcium Phosphorus Magnesium Ferritin > 2000.0 H AST Lactate Dehydrogenase C-Reactive Protein Total Protein Albumin TSH Arterial Blood Glucose Arterial Blood Ionized Calcium Ur Specific [place] Urine Creatinine Coronavirus (PCR) 09/19/20 09/19/20 09/19/20 05:12 05:27 11:47 WBC RBC Hgb Hct RDW Plt Count Lymph % (Auto) [place] % (Auto) Lymph # (Auto) Seg Neutrophils % Seg Neuts % (Manual) Lymphocytes % (Manual) Seg Neutrophils # Seg Neutrophils # Man Lymphocytes # (Manual) PT INR D-Dimer Heparin Anti-Xa Level ABG pH POC ABG pCO2 POC ABG pO2 ABG Hemoglobin ABG Oxyhemoglobin ABG Sodium ABG Potassium ABG Chloride ABG Glucose Carboxyhemoglobin Sodium Potassium Chloride Carbon Dioxide BUN Creatinine Glucose POC Glucose 220 H 158 H Calcium Phosphorus Magnesium Ferritin AST Lactate Dehydrogenase 1894 H C-Reactive Protein 9.20 H Total Protein Albumin TSH Arterial Blood Glucose Arterial Blood Ionized Calcium Ur Specific [place] Urine Creatinine Coronavirus (PCR) 09/19/20 09/19/20 09/19/20 12:10 17:34 23:59 WBC RBC Hgb Hct RDW Plt Count Lymph % (Auto) [place] % (Auto) Lymph # (Auto) Seg Neutrophils % Seg Neuts % (Manual) Lymphocytes % (Manual) Seg Neutrophils # Seg Neutrophils # Man Lymphocytes # (Manual) PT INR D-Dimer Heparin Anti-Xa Level ABG pH POC ABG pCO2 POC ABG pO2 ABG Hemoglobin ABG Oxyhemoglobin ABG Sodium ABG Potassium ABG Chloride ABG Glucose Carboxyhemoglobin Sodium Potassium 5.2 H Chloride Carbon Dioxide 21 L BUN 73 H Creatinine 4.6 H Glucose 171 H POC Glucose 131 H 147 H Calcium 8.0 L Phosphorus Magnesium Ferritin AST Lactate Dehydrogenase C-Reactive Protein Total Protein Albumin TSH Arterial Blood Glucose Arterial Blood Ionized Calcium Ur Specific [place] Urine Creatinine Coronavirus (PCR) 09/20/20 09/20/20 09/20/20 03:01 05:35 08:00 WBC RBC Hgb Hct RDW Plt Count Lymph % (Auto) [place] % (Auto) Lymph # (Auto) Seg Neutrophils % Seg Neuts % (Manual) Lymphocytes % (Manual) Seg Neutrophils # Seg Neutrophils # Man Lymphocytes # (Manual) PT INR D-Dimer Heparin Anti-Xa Level ABG pH 7.186 L POC ABG pCO2 54.5 H POC ABG pO2 118.4 H ABG Hemoglobin 10.8 L ABG Oxyhemoglobin ABG Sodium ABG Potassium 5.1 H ABG Chloride ABG Glucose 193 H Carboxyhemoglobin Sodium Potassium 5.4 H Chloride Carbon Dioxide BUN 98 H Creatinine 5.9 H Glucose 184 H POC Glucose 188 H Calcium 8.1 L Phosphorus Magnesium Ferritin AST Lactate Dehydrogenase C-Reactive Protein Total Protein Albumin TSH Arterial Blood Glucose 193 H Arterial Blood Ionized Calcium 4.4 L Ur Specific [place] Urine Creatinine Coronavirus (PCR) 09/20/20 09/20/20 09/20/20 08:00 11:36 17:46 WBC 25.1 H RBC 3.22 L Hgb 10.0 L Hct RDW 15.5 H Plt Count Lymph % (Auto) [place] % (Auto) Lymph # (Auto) Seg Neutrophils % Seg Neuts % (Manual) Lymphocytes % (Manual) Seg Neutrophils # Seg Neutrophils # Man Lymphocytes # (Manual) PT INR D-Dimer Heparin Anti-Xa Level ABG pH POC ABG pCO2 POC ABG pO2 ABG Hemoglobin ABG Oxyhemoglobin ABG Sodium ABG Potassium ABG Chloride ABG Glucose Carboxyhemoglobin Sodium Potassium Chloride Carbon Dioxide BUN Creatinine Glucose POC Glucose 158 H 24 L Calcium Phosphorus Magnesium Ferritin AST Lactate Dehydrogenase C-Reactive Protein Total Protein Albumin TSH Arterial Blood Glucose Arterial Blood Ionized Calcium Ur Specific [place] Urine Creatinine Coronavirus (PCR) 09/20/20 09/21/20 09/21/20 17:48 01:08 03:10 WBC RBC Hgb Hct RDW Plt Count Lymph % (Auto) [place] % (Auto) Lymph # (Auto) Seg Neutrophils % Seg Neuts % (Manual) Lymphocytes % (Manual) Seg Neutrophils # Seg Neutrophils # Man Lymphocytes # (Manual) PT INR D-Dimer Heparin Anti-Xa Level ABG pH 7.201 L POC ABG pCO2 POC ABG pO2 180.8 H ABG Hemoglobin 10.6 L ABG Oxyhemoglobin ABG Sodium ABG Potassium 4.9 H ABG Chloride ABG Glucose 130 H Carboxyhemoglobin Sodium Potassium Chloride Carbon Dioxide BUN Creatinine Glucose POC Glucose 156 H 158 H Calcium Phosphorus Magnesium Ferritin AST Lactate Dehydrogenase C-Reactive Protein Total Protein Albumin TSH Arterial Blood Glucose 130 H Arterial Blood Ionized Calcium 4.4 L Ur Specific [place] Urine Creatinine Coronavirus (PCR) 09/21/20 09/21/20 09/21/20 04:45 04:45 12:11 WBC 33.2 H RBC 3.20 L Hgb 9.9 L Hct RDW Plt Count 14 L* Lymph % (Auto) [place] % (Auto) Lymph # (Auto) Seg Neutrophils % Seg Neuts % (Manual) Lymphocytes % (Manual) Seg Neutrophils # Seg Neutrophils # Man Lymphocytes # (Manual) PT INR D-Dimer Heparin Anti-Xa Level ABG pH POC ABG pCO2 POC ABG pO2 ABG Hemoglobin ABG Oxyhemoglobin ABG Sodium ABG Potassium ABG Chloride ABG Glucose Carboxyhemoglobin Sodium Potassium 5.3 H Chloride Carbon Dioxide BUN 103 H Creatinine 6.3 H Glucose 129 H POC Glucose 123 H Calcium 8.3 L Phosphorus Magnesium Ferritin AST Lactate Dehydrogenase C-Reactive Protein Total Protein Albumin TSH Arterial Blood Glucose Arterial Blood Ionized Calcium Ur Specific [place] Urine Creatinine Coronavirus (PCR) Chest x-ray: other (none today) Allied health notes reviewed: nursing
[2020-09-21 17:44] LABS: Heparin-Induced Platelet Antib Positive (Negative); Unfractionated Heparin POSITIVE (Negative)
[2020-09-21] MEDS ORDERED: DEXTROSE 50% IN WATER (25GM) 50 ML SYRINGE IV ONE ×2 (23:36→23:46)
[2020-09-22] MEDS: MIDAZOLAM 100 MG in SODIUM CHLORIDE 0.9% 80 ML IV SCH ×2 (00:20→20:06)
[2020-09-22] MEDS: PHENYLEPHRINE 100 MG in SODIUM CHLORIDE 0.9% 90 ML IV SCH ×4 (00:20→20:06)
[2020-09-22] MEDS: INSULIN LISPRO 100 UNIT/ML SUB-Q SCH ×4 (00:49→18:38)
[2020-09-22] MEDS: fentaNYL DRIP Premix 2,000 MCG/100 ML BAG IV SCH ×7 (01:15→22:26)
[2020-09-22] MEDS: NORepinephrine/NS 8 MG-250 ML 8 MG/250 ML INFUS..BTL IV SCH ×4 (04:08→19:19)
[2020-09-22 05:39] LABS: Hemoglobin 9.5 gm/dl (10.1-14.3); Mean Corpuscular HGB Conc 33 % (30-34); Mean Corpuscular Volume 97 fl (79-97); Red Cell Distribution Width 15.7 % (13.2-15.2)
[2020-09-22 05:43] LABS: Calcium 8.1 mg/dL (8.4-10.2)
[2020-09-22 05:45] LABS: Platelet Count 24 K/mm3 (140-440)
[2020-09-22] MEDS: IPRATROPIUM/ALBUTEROL SULFATE 3 ML AMPUL.NEB IH SCH ×3 (06:54→22:28)
[2020-09-22] MEDS: METOCLOPRAMIDE 10 MG/2 ML INJ IV SCH ×3 (08:03→20:06)
[2020-09-22] MEDS: ACETAMINOPHEN 325 MG TAB PO PRN ×2 (08:04→19:19)
[2020-09-22] MEDS: ASCORBIC ACID 500 MG TAB PO SCH ×3 (09:02→21:25)
[2020-09-22] MEDS: FAMOTIDINE 20 MG/2 ML INJ IV SCH ×2 (09:02→21:25)
[2020-09-22] MEDS: CHOLECALCIFEROL (VIT D3) 1000 UNIT (25 mcg) TAB PO SCH (09:02)
[2020-09-22] MEDS: SENNOSIDES/DOCUSATE SODIUM 8.6/50 MG TAB PO SCH ×2 (09:03→21:25)
[2020-09-22] MEDS: ZINC SULFATE 220 MG CAP PO SCH ×3 (09:18→21:25)
--- NOTE | 2020-09-22 10:28 | Progress Note ---
Assessment and Plan Assessment and plan: Acute metabolic encephalopathy -Sedated with propofol, fentanyl, versed no changes to this point. -RASS goal neg 4 -PERRL -family updated on plan of care-spoke i spoke to daughter Vikas all questions and concerns answered -case management following Severe sepsis -Atropine at bedside -Hold home Coreg-> no rate lowering meds; s/p bradycardia -SR-ST-heart rate minimally improved 75 remains on pressors Heart rate well controlled in 70s. -trend QT -NE, vaso for hypotension -Hydralazine IV as needed for SBP greater than 160 has not required antih ypertensive. Has not required hydralazine will follow. -normal biV function on echo -CVP- trend daily Acute hypoxic respiratory failure due to covid pna , Acute hypoxemic respiratory failure, COVID-19 infection, Bilateral pneumonia -Intubated 09/10 -Presented with Covid pneumonia -CCM consulted, appreciate recommendations -VAP bundle -Wean mechanical ventilation as tolerated -Current vent settings: AC, 30/450/18/100 -see RT notes for titration/changes -Serial ABGs -Serial CXRs -proned 09/13-09/17 -continue duonebs COVID-19 Pneumonia Covid test positive on 09/09 -COVID-19 PCR (+) on 09/09 -Infectious disease consulted, appreciate recommendations -IV tocilizumab x1 -Dexamethasone 09/10 through 09/19 -Remdesivir 09/11 through 09/14 -Azithromycin 09/09 through 09/13, Rocephin 09/09 through 09/13 -Contact/droplet precaution -Trend COVID-19 inflammatory markers -on zinc and Vit C -ID started renally dosed cefepime/Vanco d/t increasing vasopresser use Cholelithiasis/transaminitis -Nutrition consulted, appreciate recommendations -tolerating TF -PPI -BR: Colace -BM 09/10 -Trend LFTs and tbili -Prognosis extremely poor but if patient does survive sleep study. Acute kidney injury secondary to vasomotor nephropathy -Presented with a BUN/creatinine of 1.5/32 -Avoid nephrotoxic medication -Nephrology consulted, appreciate recommendations -Strict intake and output -bladder scanning with intermittent straight caths -Daily weights-currently not overloaded at this time. Hemodialysis pending tomorrow. -Trend BMP -renal consulted for uptrending Cr urine electrolytes and renal U/S ordered -09/15/2020 HD started s/p vascath placement -HD per nephrology -AM labs ordered - 24 hr fluid status: (+) 2626 Pancytopenia -Leukopenia likely secondary to COVID-19 infection-resolved -Thrombocytopenia likely secondary to sepsis. 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 Heparin d/c, hit panel ordered. holding argatroban. -09/08 CTA chest shows no evidence of pulmonary embolism, multifocal airspace opacities with nodular densities and groundglass opacities in bilateral lungs, cholelithiasis, cholelithiasis -doppler BLE neg for DVT -Blood tinged sputum -Low dose heparin gtt -Trend CBC -> bloody secretions from ett today. -Transfuse for hemoglobin less than 7 DM type II; hyperglycemia -Accu-Checks every 6hours -Avoid hypoglycemia -SSI -lantus scheduled, titrate as needed 09/21/2020. Patient currently on mechanical ventilation AC mode rate of 30, tidal volume 450, FiO2 80% and PEEP of 20. Patient currently with sedation of fentanyl, propofol and Versed drips. Maintain pressors for MAP > 65. Patient with Levophed and with vasopressin ordered. Continue antimicrobials of cefepime and fluconazole per ID recommendations. 09/22/2020. Patient with extremely poor prognosis. Patient currently with AC mode rate of 30, tidal volume 450, FiO2 100% and PEEP of 18. Patient unfortunately currently only with saturations of mid 80% with these maximal vent settings. Patient still with oliguric acute kidney injury secondary to ATN/sepsis. Patient with no evidence of renal recovery at this time. Patient only tolerated 30 minutes of dialysis on 09/20/2020. Patient unlikely to tolerate other attempts at hemodialysis given the septic shock/hypotension/pressors. Patient currently on vasopressin, Hardy-Synephrine and Levophed. Other complications overnight included increased residuals of 700 and therefore tube feeding was stopped. Patient currently on sedation of propofol and Versed. I had a long discussion with the daughter Vikas regarding extremely poor prognosis. Daughter desires full code and no wishes with DNR. Patient with severe/critical Covid 19 pneumonia and subsequent ARDS. Continue higher dose steroids, pressors as noted above, and broad-spectrum antibiotics per ID recommendations. The high probability of a clinically significant, sudden or life threatening deterioration of the [cardiac, respiratory, immunologic and neurologic] system(s) required my full and direct attention, intervention and personal management. The aggregate critical care time was [45] minutes. This time is in addition to time spent performing reported procedures but includes the following: [x] Data Review and interpretation [x] Patient assessment and monitoring of vital signs [x] Documentation [x] Medication orders and management History Interval history: Ac hypoxemic resp failure; ARDS; COVID-19 infxn; PNA; DM II; Obesity Patient remains on the ventilator. Currently on 80% FiO2. No urine output. Patient did not tolerate dialysis yesterday due to tachycardia. Dialysis terminated after 30 minutes. Hospitalist Physical - Constitutional Vitals: Temp Pulse Resp BP Pulse Ox 102.8 F H 126 H 30 H 110/35 87 09/22/20 09:30 09/22/20 10:01 09/22/20 10:01 09/22/20 10:01 09/22/20 10:01 General appearance: Present: no acute distress, other (Intubated sedated) - EENT Eyes: Present: PERRL, EOM intact ENT: hearing intact, clear oral mucosa, dentition normal - Neck Neck: Present: supple, normal ROM - Respiratory Respiratory effort: normal Respiratory: bilateral: CTA - Cardiovascular Rhythm: regular Heart Sounds: Present: S1 & S2. Absent: gallop, rub - Extremities Extremities: no ischemia, No edema, Full ROM - Abdominal General gastrointestinal: soft, non-tender, non-distended, normal bowel sounds - Integumentary Integumentary: Present: clear, warm, dry - Neurologic Neurologic: CNII-XII intact, moves all extremities HEART Score - HEART Score Troponin: Troponin T < 0.010 ng/mL (0.00-0.029) 09/09/20 00:39 Results - Labs CBC & Chem 7: 09/22/20 04:45 09/22/20 04:45 Labs: Laboratory Last Values WBC 24.1 K/mm3 (4.5-11.0) H 09/22/20 04:45 RBC 3.00 M/mm3 (3.65-5.03) L 09/22/20 04:45 Hgb 9.5 gm/dl (10.1-14.3) L 09/22/20 04:45 Hct 29.0 % (30.3-42.9) L 09/22/20 04:45 MCV 97 fl (79-97) 09/22/20 04:45 MCH 32 pg (28-32) 09/22/20 04:45 MCHC 33 % (30-34) 09/22/20 04:45 RDW 15.7 % (13.2-15.2) H 09/22/20 04:45 Plt Count 24 K/mm3 (140-440) L 09/22/20 04:45 Lymph % (Auto) 3.9 % (13.4-35.0) L 09/15/20 03:10 [place] % (Auto) 5.9 % (0.0-7.3) 09/15/20 03:10 Eos % (Auto) 0.2 % (0.0-4.3) 09/15/20 03:10 Baso % (Auto) 0.1 % (0.0-1.8) 09/15/20 03:10 Lymph # (Auto) 0.5 K/mm3 (1.2-5.4) L 09/15/20 03:10 [place] # (Auto) 0.8 K/mm3 (0.0-0.8) 09/15/20 03:10 Eos # (Auto) 0.0 K/mm3 (0.0-0.4) 09/15/20 03:10 Baso # (Auto) 0.0 K/mm3 (0.0-0.1) 09/15/20 03:10 Add Manual Diff Complete 09/12/20 17:17 Total Counted 100 09/12/20 17:17 Seg Neutrophils % 89.9 % (40.0-70.0) H 09/15/20 03:10 Seg Neuts % (Manual) 96.0 % (40.0-70.0) H 09/12/20 17:17 Lymphocytes % (Manual) 1.0 % (13.4-35.0) L 09/12/20 17:17 Monocytes % (Manual) 3.0 % (0.0-7.3) 09/12/20 17:17 Nucleated RBC % Not Reportable 09/12/20 17:17 Seg Neutrophils # 12.1 K/mm3 (1.8-7.7) H 09/15/20 03:10 Seg Neutrophils # Man 9.8 K/mm3 (1.8-7.7) H 09/12/20 17:17 Band Neutrophils # 0.0 K/mm3 09/12/20 17:17 Lymphocytes # (Manual) 0.1 K/mm3 (1.2-5.4) L 09/12/20 17:17 Abs React Lymphs (Man) 0.0 K/mm3 09/12/20 17:17 Monocytes # (Manual) 0.3 K/mm3 (0.0-0.8) 09/12/20 17:17 Eosinophils # (Manual) 0.0 K/mm3 (0.0-0.4) 09/12/20 17:17 Basophils # (Manual) 0.0 K/mm3 (0.0-0.1) 09/12/20 17:17 Metamyelocytes # 0.0 K/mm3 09/12/20 17:17 Myelocytes # 0.0 K/mm3 09/12/20 17:17 Promyelocytes # 0.0 K/mm3 09/12/20 17:17 Blast Cells # 0.0 K/mm3 09/12/20 17:17 WBC Morphology Not Reportable 09/12/20 17:17 Hypersegmented Neuts Not Reportable 09/12/20 17:17 Hyposegmented Neuts Not Reportable 09/12/20 17:17 Hypogranular Neuts Not Reportable 09/12/20 17:17 Smudge Cells Not Reportable 09/12/20 17:17 Toxic Granulation Not Reportable 09/12/20 17:17 Toxic Vacuolation Not Reportable 09/12/20 17:17 Dohle Bodies Not Reportable 09/12/20 17:17 Pelger-Huet Anomaly Not Reportable 09/12/20 17:17 Katrin Rods Not Reportable 09/12/20 17:17 Platelet Estimate Consistent w auto 09/12/20 17:17 Clumped Platelets Not Reportable 09/12/20 17:17 Plt Clumps, EDTA Not Reportable 09/12/20 17:17 Large Platelets Not Reportable 09/12/20 17:17 Giant Platelets Not Reportable 09/12/20 17:17 Platelet Satelliting Not Reportable 09/12/20 17:17 Plt Morphology Comment Not Reportable 09/12/20 17:17 RBC Morphology Normal 09/12/20 17:17 Dimorphic RBCs Not Reportable 09/12/20 17:17 Polychromasia Not Reportable 09/12/20 17:17 Hypochromasia Not Reportable 09/12/20 17:17 Poikilocytosis Not Reportable 09/12/20 17:17 Anisocytosis Not Reportable 09/12/20 17:17 Microcytosis Not Reportable 09/12/20 17:17 Macrocytosis Not Reportable 09/12/20 17:17 Spherocytes Not Reportable 09/12/20 17:17 Pappenheimer Bodies Not Reportable 09/12/20 17:17 Sickle Cells Not Reportable 09/12/20 17:17 Target Cells Not Reportable 09/12/20 17:17 Tear Drop Cells Not Reportable 09/12/20 17:17 Ovalocytes Not Reportable 09/12/20 17:17 Helmet Cells Not Reportable 09/12/20 17:17 [place] Bodies Not Reportable 09/12/20 17:17 [place] Rings Not Reportable 09/12/20 17:17 [place] Cells Not Reportable 09/12/20 17:17 Bite Cells Not Reportable 09/12/20 17:17 Crenated Cell Not Reportable 09/12/20 17:17 Elliptocytes Not Reportable 09/12/20 17:17 Acanthocytes (Spur) Not Reportable 09/12/20 17:17 Rouleaux Not Reportable 09/12/20 17:17 Hemoglobin C Crystals Not Reportable 09/12/20 17:17 Schistocytes Not Reportable 09/12/20 17:17 Malaria parasites Not Reportable 09/12/20 17:17 [place] Bodies Not Reportable 09/12/20 17:17 Hem Pathologist Commnt No 09/12/20 17:17 PT 18.8 Sec. (12.2-14.9) H 09/15/20 14:00 INR 1.52 (0.87-1.13) H 09/15/20 14:00 APTT 32.7 Sec. (24.2-36.6) 09/15/20 14:00 D-Dimer > 30954 ng/mlDDU (0-234) H 09/19/20 05:12 Heparin Anti-Xa Level < 0.10 U.I./ml (0.3-0.7) L 09/18/20 10:53 Heparin Anti-Xa, Unfract Positive (Negative) H 09/18/20 18:35 ABG pH 7.051 (7.320-7.450) L 09/22/20 01:48 POC ABG pCO2 55.4 mmHg (32.0-48.0) H 09/22/20 01:48 POC ABG pO2 90.7 mmHg (83-108) 09/22/20 01:48 POC ABG HCO3 15.0 09/22/20 01:48 ABG O2 Saturation 93.8 (0-100) 09/22/20 01:48 POC ABG Base Excess -15.0 09/22/20 01:48 ABG Hemoglobin 9.9 (12.0-17.5) L 09/22/20 01:48 ABG Oxyhemoglobin 93.0 (94-98) L 09/22/20 01:48 ABG Methemoglobin 0.1 (0.0-1.5) 09/22/20 01:48 ABG Sodium 135.2 mmol/L (136.0-145.0) L 09/22/20 01:48 ABG Potassium 5.6 mmol/L (3.40-4.50) H 09/22/20 01:48 ABG Chloride 102.0 mmol/L (98-107) 09/22/20 01:48 ABG Glucose 129 mg/dL (65-95) H 09/22/20 01:48 Carboxyhemoglobin 0.8 (0.5-1.5) 09/22/20 01:48 FiO2 % 80.0 09/22/20 01:48 Sodium 141 mmol/L (137-145) 09/22/20 04:45 Potassium 5.7 mmol/L (3.6-5.0) H 09/22/20 04:45 Chloride 99.4 mmol/L (98-107) 09/22/20 04:45 Carbon Dioxide 17 mmol/L (22-30) L 09/22/20 04:45 Anion Gap 30 mmol/L 09/22/20 04:45 BUN 83 mg/dL (7-17) H 09/22/20 04:45 Creatinine 5.7 mg/dL (0.6-1.2) H 09/22/20 04:45 Estimated GFR 9 ml/min 09/22/20 04:45 BUN/Creatinine Ratio 15 % 09/22/20 04:45 Glucose 119 mg/dL (65-100) H 09/22/20 04:45 POC Glucose 101 mg/dL (70-105) 09/22/20 05:40 Osmolality 329 Mosm/kg 09/12/20 17:17 Lactic Acid 1.90 mmol/L (0.7-2.0) 09/12/20 17:17 Calcium 8.1 mg/dL (8.4-10.2) L 09/22/20 04:45 Phosphorus 5.20 mg/dL (2.5-4.5) H 09/18/20 05:15 Magnesium 2.00 mg/dL (1.7-2.3) 09/18/20 05:15 Ferritin > 2000.0 ng/mL (10.0-200.0) H 09/19/20 05:12 Total Bilirubin 0.20 mg/dL (0.1-1.2) 09/16/20 04:20 AST 46 units/L (5-40) H 09/16/20 04:20 ALT 27 units/L (7-56) 09/16/20 04:20 Alkaline Phosphatase 112 units/L (35-129) 09/16/20 04:20 Lactate Dehydrogenase 1894 units/L (91-180) H 09/19/20 05:12 Troponin T < 0.010 ng/mL (0.00-0.029) 09/09/20 00:39 C-Reactive Protein 9.20 mg/dL (0.00-1.30) H 09/19/20 05:12 NT-Pro-B Natriuret Pep 503.6 pg/mL (0-900) 09/08/20 17:37 Total Protein 6.2 g/dL (6.3-8.2) L 09/16/20 04:20 Albumin 2.9 g/dL (3.9-5) L 09/16/20 04:20 Albumin/Globulin Ratio 0.9 % 09/16/20 04:20 Lipase 47 units/L (13-60) 09/08/20 17:37 Serotonin Release Assay See scanned results 09/18/20 18:35 Procalcitonin 0.74 ng/mL (<0.15) 09/15/20 03:10 TSH 0.067 mlU/mL (0.270-4.200) L 09/12/20 17:17 Arterial Blood Glucose 129 mg/dL (65-95) H 09/22/20 01:48 Arterial Blood Ionized Calcium 4.2 mg/dL (4.6-5.3) L 09/22/20 01:48 Urine Color Yellow (Yellow) 09/12/20 13:30 Urine Turbidity Clear (Clear) 09/12/20 13:30 Urine pH 5.0 (5.0-7.0) 09/12/20 13:30 Ur Specific [place] 1.011 (1.003-1.030) 09/12/20 13:30 Urine Protein 100 mg/dl mg/dL (Negative) 09/12/20 13:30 Urine Glucose (UA) 50 mg/dL (Negative) 09/12/20 13:30 Urine Ketones Neg mg/dL (Negative) 09/12/20 13:30 Urine Blood Lg (Negative) 09/12/20 13:30 Urine Nitrite Neg (Negative) 09/12/20 13:30 Urine Bilirubin Neg (Negative) 09/12/20 13:30 Urine Urobilinogen < 2.0 mg/dL (<2.0) 09/12/20 13:30 Ur Leukocyte Esterase Neg (Negative) 09/12/20 13:30 Urine WBC (Auto) 2.0 /HPF (0.0-6.0) 09/12/20 13:30 Urine RBC (Auto) 47.0 /HPF (0.0-6.0) 09/12/20 13:30 U Epithel Cells (Auto) 2.0 /HPF (0-13.0) 09/08/20 22:24 Urine Bacteria (Auto) 1+ /HPF (Negative) 09/12/20 13:30 Urine Mucus Few /HPF 09/12/20 13:30 Urine Osmolality 340 Mosm/kg 09/12/20 13:30 Urine Creatinine 43.2 mg/dL (0.1-20.0) H 09/12/20 13:30 Urine Sodium 58 mmol/L 09/12/20 13:30 Urine Urea Nitrogen 479 09/12/20 13:30 Random Vancomycin 11.8 ug/mL (0-40.0) 09/19/20 05:12 Urine Opiates Screen Presumptive negative 09/08/20 22:24 Urine Methadone Screen Presumptive negative 09/08/20 22:24 Ur Barbiturates Screen Presumptive negative 09/08/20 22:24 Ur Phencyclidine Scrn Presumptive negative 09/08/20 22:24 Ur Amphetamines Screen Presumptive negative 09/08/20 22:24 U Benzodiazepines Scrn Presumptive negative 09/08/20 22:24 Urine Cocaine Screen Presumptive negative 09/08/20 22:24 U Marijuana (THC) Screen Presumptive negative 09/08/20 22:24 Drugs of Abuse Note Disclamer 09/08/20 22:24 Heparin-induced Plt Ab Positive (Negative) H 09/18/20 18:35 UF Heparin High Dose 0 % Release 09/18/20 18:35 NICOLE UFH Low Dose 0.1 93 % Release 09/18/20 18:35 NCIOLE UFH Low Dose 0.5 97 % Release 09/18/20 18:35 Coronavirus (PCR) Positive (Negative) A 09/09/20 09:00 Hepatitis A IgM Ab Non-reactive (NonReactive) 09/15/20 13:25 Hep Bs Antigen Non-reactive (Negative) 09/15/20 13:25 Hep B Core IgM Ab Non-reactive (NonReactive) 09/15/20 13:25 Hepatitis C Antibody Non-reactive (NonReactive) 09/15/20 13:25 Blood Type O POSITIVE 09/21/20 09:15 Antibody Screen Negative 09/21/20 09:15 Microbiology: Microbiology 09/17/20 16:27 Peripheral/Venous Blood Culture - Preliminary NO GROWTH AFTER 4 DAYS Begum/IV: Voiding Method Indwelling Catheter Active Medications - Current Medications Current Medications: Generic Name Dose Route Start Last Admin Trade Name Freq PRN Reason Stop Dose Admin Acetaminophen 650 mg 09/08/20 20:23 09/22/20 08:04 Acetaminophen 325 Mg Tab PO 650 mg Q4H PRN Administration Pain MILD(1-3)/Fever >100.5/CORTEZ Albuterol 2.5 mg 09/08/20 20:23 Albuterol 2.5 Mg/3 Ml Nebu IH Q4HRT PRN Shortness Of Breath Albuterol/Ipratropium 1 ampul 09/13/20 12:30 09/22/20 10:14 Ipratropium/Albuterol Sulfate 3 Ml Ampul.Neb IH Not Given BID ISIAH Lipase/Protease/Amylase 1 each 09/11/20 11:45 Lipase 10,500/Protease 25,000/Amylase 43,750 (Units) Dr Cap FEEDTUBE PRN PRN For Clogged Feeding Tube Ascorbic Acid 500 mg 09/08/20 22:00 09/22/20 09:02 Ascorbic Acid 500 Mg Tab PO 500 mg BID ISIAH Administration Cholecalciferol 1,000 unit 09/09/20 10:00 09/22/20 09:02 Cholecalciferol (Vit D3) 1000 Unit (25 Mcg) Tab PO 1,000 unit QDAY ISIAH Administration Famotidine 10 mg 09/14/20 22:00 09/22/20 09:02 Famotidine 20 Mg/2 Ml Inj IV 10 mg BID ISIAH Administration Fentanyl 50 mcg 09/13/20 12:12 Fentanyl 100 Mcg/2 Ml Inj IV Q10MIN PRN ANALGESIA Guaifenesin 10 ml 09/09/20 16:01 09/10/20 05:14 Guaifenesin Dm 200/20 Mg Oral Liqd 10 Ml PO 10 ml Q4H PRN Administration Cough Hydralazine HCl 10 mg 09/11/20 21:33 Hydralazine 20 Mg/1 Ml Inj IV Q4H PRN Hypertension Fentanyl Citrate 2,000 mcg in 100 mls @ 7.45 mls/hr 09/10/20 23:00 09/22/20 08:04 Fentanyl Drip Premix IV 4 mcg/kg/hr TITR ISIAH 29.8 mls/hr Administration Protocol 1 MCG/KG/HR Vasopressin 20 unit/ Sodium 101 mls @ 9.09 mls/hr 09/11/20 22:00 09/21/20 23:25 Chloride IV 0.03 units/min TITR ISIAH 9.09 mls/hr Administration Protocol 0.03 UNITS/MIN Midazolam HCl 100 mg/ Sodium 100 mls @ 1 mls/hr 09/12/20 17:30 09/22/20 00:20 Chloride IV 4 mg/hr TITR ISIAH 4 mls/hr Administration Protocol 1 MG/HR Propofol 1,000 mg in 100 mls @ 4.47 mls/hr 09/13/20 13:00 09/22/20 09:02 Diprivan 10 Mg/Ml IV 50 mcg/kg/min TITR ISIAH 44.7 mls/hr Administration Protocol 5 MCG/KG/MIN Sodium Chloride 1,000 mls @ 110 mls/hr 09/15/20 05:30 Nacl 0.9% 1000 Ml IV DIRECT ISIAH Fluconazole 200 mg in 100 mls @ 100 mls/hr 09/18/20 14:00 09/21/20 14:16 Diflucan IV 100 mls/hr Q24H ISIAH Administration NORepinephrine/NS 8 MG-250 ML 8 mg in 250 mls @ 3.75 mls/hr 09/20/20 10:00 09/22/20 09:21 Norepinephrine/Ns 8 Mg-250 Ml (Double Conc) IV 30 mcg/min TITRATE ISIAH 56.25 mls/hr Administration Protocol 2 MCG/MIN Sodium Chloride 100 mls @ 999 mls/hr 09/21/20 09:30 Nacl 0.9% IV NABEEL PRN Hypotension MEROPENEM/NS 1 GRAM/100 ML 1 gram in 100 mls @ 100 mls/hr 09/21/20 15:00 09/21/20 15:20 Merrem/Ns 1 Gram/100 Ml IV 100 mls/hr Q24H ISIAH Administration Protocol Phenylephrine HCl 100 mg/ 100 mls @ 3 mls/hr 09/21/20 14:15 09/22/20 04:08 Sodium Chloride IV 50 mcg/min TITR ISIAH 3 mls/hr Administration Protocol 50 MCG/MIN Insulin Human Lispro 0 unit 09/11/20 12:00 09/22/20 05:45 Insulin Lispro 100 Unit/Ml SUB-Q Not Given Q6HR ISIAH Protocol Metoclopramide HCl 5 mg 09/19/20 12:00 09/22/20 08:03 Metoclopramide 10 Mg/2 Ml Inj IV 5 mg Q8H ISIAH Administration Midazolam HCl 2 mg 09/12/20 17:30 09/21/20 11:46 Midazolam 2 Mg/2 Ml Inj IV 2 mg Q10MIN PRN Administration Sedation Senna/Docusate Sodium 2 tab 09/19/20 12:00 09/22/20 09:03 Sennosides/Docusate Sodium 8.6/50 Mg Tab PO 2 tab BID ISIAH Administration Simple Syrup 15 ml 09/11/20 11:45 Simple Syrup 15 Ml FEEDTUBE PRN PRN Hypoglycemia Simple Syrup 30 ml 09/11/20 11:45 Simple Syrup 15 Ml FEEDTUBE PRN PRN Hypoglycemia Sodium Bicarbonate 325 mg 09/11/20 11:45 Sodium Bicarbonate 325 Mg Tab FEEDTUBE PRN PRN For Clogged Feeding Tube Sodium Chloride 10 ml 09/08/20 22:00 09/22/20 09:04 Sodium Chloride 0.9% 10 Ml Flush Syringe IV 10 ml BID ISIAH Administration Sodium Chloride 10 ml 09/08/20 20:23 Sodium Chloride 0.9% 10 Ml Flush Syringe IV PRN PRN LINE FLUSH Zinc Sulfate 220 mg 09/08/20 22:00 09/22/20 09:18 Zinc Sulfate 220 Mg Cap PO 220 mg BID ISIAH Administration Nutrition/Malnutrition Assess - Dietary Evaluation Nutrition/Malnutrition Findings: Nutrition Notes Start: 09/11/20 11:37 Freq: Status: Active Protocol: Document 09/21/20 11:02 SOURAV (Rec: 09/21/20 11:07 SOURAV [id number]) Nutrition Notes Initial or Follow up Reassessment Current Diagnosis Acute Kidney Injury, Respiratory Failure Other Pertinent Diagnosis pneu, COVID Current Diet Nepro 1.8 at 40 ml/hr Labs/Tests K 5.3 BUN 103 Cr 6.3 Pertinent Medications Vasopressin Norepi Reglan Height 5 ft 8 in Weight 149 kg [place] Body Weight (kg) 63.63 BMI 49.9 Weight Status Morbidly Obese Subjective/Other Information Pt with 400 ml residuals yesterday. TF at 10 ml/hr per MD. Percent of energy/protein needs met: 24%/12% Burn Absent Trauma Absent Current % PO Negligible Minimum of two criteria No physical signs of malnutrition #1 Nutrition Diagnosis Inadequate oral intake Diagnosis Progress(for reassessment Continues documentation) Is patient on ventilator? Yes Is Patient Ambulatory and/or Out of Bed No REE-([facility]-confined to bed) 2457.420 Kcal/Kg value to use for calculation 12 Approximate Energy Requirements Using 1788 kcal/Kg Calculation Used for Recommendations Kcal/kg Additional Notes Protein: up to 2.5g/kg IBW (up to 159g) Fluid: 1 ml/kcal or per MD Nutrition Intervention Change Diet Order: Continue as tolerated Nutrition Support: 16 Hr Prone: For 16h proned - Nepro 1.8 at 20 ml/hr Flush 50 ml q4h For 8 h supine - Nepro 1.8 at 80 ml/hr (or as tolerated). Flush 250 q4h When finished proning: Nepro 1 .8 at 40 ml/hr Flush 175 ml q4h or per MD Kcal 1,728 Protein (gm) 78 Fluid (mL) 698 Goal #1 Meet protein and energy needs via TF as best as possible Anticipated Discharge Needs: Unable to determine at this time Follow-Up By: 09/25/20 Additional Comments FU for TF tolerance and proning
[2020-09-22] MEDS: VASOPRESSIN 20 UNIT in SODIUM CHLORIDE 0.9% 100 ML IV SCH ×2 (11:13→20:06)
--- NOTE | 2020-09-22 11:34 | Progress Note ---
Assessment and Plan Cultures: SARS CoV2 PCR: Positive 09/08/2020 blood culture: No growth 09/08/2020 urine culture: Usual skin stefania A/P: 75-year-old female with hypertension, diabetes, obesity hypoventilation syndrome was admitted to the hospital with cough, shortness of breath, not feeling well: #Shock, likely septic: no clear evidence of bacterial infection. Completed empiric CAP coverage. Probably related to severe/critical COVID. Rise in procal now probably from renal failure. #Bilateral COVID-19 pneumonia: critical disease. Remdesivir was discontinued due to worsening renal failure. #Coagulase-negative staph bacteremia: In 1 set contaminant. #Acute hypoxic respiratory failure: On the vent with very high requirements. #Morbid obesity #Hypertension, diabetes #Leukopenia, mild thrombocytopenia, transaminitis: Likely related to COVID-19 #NICOLASA: worse, now requiring dialysis. Recs: -Patient now with increasing pressor requirements continue empiric broad- spectrum antibiotics: escalated to meropenem, fluconazole. However, may be non- infectious source of fevers. -Re-culture blood, tracheal aspirate -continue steroids, higher dose due to morbid obesity. -Worsening inflammatory markers -> ?worsening ARDS, ?HLH -IV Tocilizumab administered 09/12/2020 (remdesivir course was not completed due to worsening renal failure) -significantly high d-dimer, agree with anticoagulation -very poor prognosis Trang Narayanan MD [facility] ([facility]) O: [phone] F: [phone] Subjective Date of service: 09/22/20 Principal diagnosis: Ac hypoxemic resp failure; ARDS; COVID-19 infxn; PNA; DM II; Obesity Interval history: Persistently febrile to 102.8 with a white count 24.1. Remains on the vent. Objective - Exam Narrative Exam: Physical exam deferred to reduce risk of transmission of COVID-19. Please refer to primary team's note. - Constitutional Vitals: Vital Signs Temp Pulse Resp BP Pulse Ox 102.8 F H 119 H 30 H 113/38 87 09/22/20 09:30 09/22/20 11:18 09/22/20 10:01 09/22/20 11:18 09/22/20 11:18 Temperature -Last 24 Hours Temperature 102.8 F Temperature 104 F Temperature 102.7 F Temperature 102.8 F Temperature 102.8 F Temperature 100.4 F Temperature 102.3 F Temperature 102.3 F - Labs CBC & Chem 7: 09/22/20 04:45 09/22/20 04:45 Labs: Abnormal lab results 09/18/20 09/21/20 09/21/20 Range/Units 18:35 12:11 17:14 WBC (4.5-11.0) K/mm3 RBC (3.65-5.03) M/mm3 Hgb (10.1-14.3) gm/dl Hct (30.3-42.9) % RDW (13.2-15.2) % Plt Count (140-440) K/mm3 Heparin Anti-Xa, Unfract Positive H (Negative) ABG pH (7.320-7.450) POC ABG pCO2 (32.0-48.0) mmHg ABG Hemoglobin (12.0-17.5) ABG Oxyhemoglobin (94-98) ABG Sodium (136.0-145.0) mmol/L ABG Potassium (3.40-4.50) mmol/L ABG Glucose (65-95) mg/dL Potassium (3.6-5.0) mmol/L Carbon Dioxide (22-30) mmol/L BUN (7-17) mg/dL Creatinine (0.6-1.2) mg/dL Glucose (65-100) mg/dL POC Glucose 123 H 154 H (70-105) mg/dL Calcium (8.4-10.2) mg/dL Arterial Blood Glucose (65-95) mg/dL Arterial Blood Ionized Calcium (4.6-5.3) mg/dL Heparin-induced Plt Ab Positive H (Negative) 09/21/20 09/22/20 09/22/20 Range/Units 23:35 00:01 00:15 WBC (4.5-11.0) K/mm3 RBC (3.65-5.03) M/mm3 Hgb (10.1-14.3) gm/dl Hct (30.3-42.9) % RDW (13.2-15.2) % Plt Count (140-440) K/mm3 Heparin Anti-Xa, Unfract (Negative) ABG pH (7.320-7.450) POC ABG pCO2 (32.0-48.0) mmHg ABG Hemoglobin (12.0-17.5) ABG Oxyhemoglobin (94-98) ABG Sodium (136.0-145.0) mmol/L ABG Potassium (3.40-4.50) mmol/L ABG Glucose (65-95) mg/dL Potassium (3.6-5.0) mmol/L Carbon Dioxide (22-30) mmol/L BUN (7-17) mg/dL Creatinine (0.6-1.2) mg/dL Glucose (65-100) mg/dL POC Glucose < 10 L 10 L 212 H (70-105) mg/dL Calcium (8.4-10.2) mg/dL Arterial Blood Glucose (65-95) mg/dL Arterial Blood Ionized Calcium (4.6-5.3) mg/dL Heparin-induced Plt Ab (Negative) 09/22/20 09/22/20 09/22/20 Range/Units 01:48 04:45 04:45 WBC 24.1 H (4.5-11.0) K/mm3 RBC 3.00 L (3.65-5.03) M/mm3 Hgb 9.5 L (10.1-14.3) gm/dl Hct 29.0 L (30.3-42.9) % RDW 15.7 H (13.2-15.2) % Plt Count 24 L (140-440) K/mm3 Heparin Anti-Xa, Unfract (Negative) ABG pH 7.051 L (7.320-7.450) POC ABG pCO2 55.4 H (32.0-48.0) mmHg ABG Hemoglobin 9.9 L (12.0-17.5) ABG Oxyhemoglobin 93.0 L (94-98) ABG Sodium 135.2 L (136.0-145.0) mmol/L ABG Potassium 5.6 H (3.40-4.50) mmol/L ABG Glucose 129 H (65-95) mg/dL Potassium 5.7 H (3.6-5.0) mmol/L Carbon Dioxide 17 L (22-30) mmol/L BUN 83 H (7-17) mg/dL Creatinine 5.7 H (0.6-1.2) mg/dL Glucose 119 H (65-100) mg/dL POC Glucose (70-105) mg/dL Calcium 8.1 L (8.4-10.2) mg/dL Arterial Blood Glucose 129 H (65-95) mg/dL Arterial Blood Ionized Calcium 4.2 L (4.6-5.3) mg/dL Heparin-induced Plt Ab (Negative) 09/22/20 Range/Units 05:35 WBC (4.5-11.0) K/mm3 RBC (3.65-5.03) M/mm3 Hgb (10.1-14.3) gm/dl Hct (30.3-42.9) % RDW (13.2-15.2) % Plt Count (140-440) K/mm3 Heparin Anti-Xa, Unfract (Negative) ABG pH (7.320-7.450) POC ABG pCO2 (32.0-48.0) mmHg ABG Hemoglobin (12.0-17.5) ABG Oxyhemoglobin (94-98) ABG Sodium (136.0-145.0) mmol/L ABG Potassium (3.40-4.50) mmol/L ABG Glucose (65-95) mg/dL Potassium (3.6-5.0) mmol/L Carbon Dioxide (22-30) mmol/L BUN (7-17) mg/dL Creatinine (0.6-1.2) mg/dL Glucose (65-100) mg/dL POC Glucose < 10 L (70-105) mg/dL Calcium (8.4-10.2) mg/dL Arterial Blood Glucose (65-95) mg/dL Arterial Blood Ionized Calcium (4.6-5.3) mg/dL Heparin-induced Plt Ab (Negative)
--- NOTE | 2020-09-22 12:42 | Progress Note ---
Assessment and Plan Impression * Oliguric acute kidney injury secondary to ATN * Acute hypoxic/hypercapnic respirtaory failure secondary to COVID 19 PNA * COVID 19 PNA * Sepsis * Hyperkalemia * Azotemia * Respiratory acidosis * Type II DM Plan: * No evidence of renal recovery at this time * patient had approximately 2-1/2 hours of dialysis today. Terminated early due to hypotension. Patient is currently on 3 pressors * UF as tolerated * Dose medications for renal function * Vent management per [facility] * ID following * Pressors prn to maintain MAP >65 * Plan to dialyze her again tomorrow if stable * Her overall prognosis is poor Subjective Date of service: 09/22/20 Principal diagnosis: Ac hypoxemic resp failure; ARDS; COVID-19 infxn; PNA; DM II; Obesity Interval history: Patient had hemodialysis treatment today. However her blood pressure dropped down in the 80s and dialysis was discontinued after about 2-1/2 hours of treatment. Patient is currently on the ventilator. On 100% FiO2. Currently on 3 pressors. Objective - Vital Signs Vital signs: Vital Signs - 12hr 09/22/20 09/22/20 09/22/20 00:45 01:00 01:15 Temperature Pulse Rate 131 H 130 H 129 H Respiratory 30 H 30 H 30 H Rate Blood Pressure 126/51 115/44 103/33 O2 Sat by Pulse Oximetry O2 Sat by Pulse Oximetry [ Anterior Bilateral Throughout] 09/22/20 09/22/20 09/22/20 01:30 01:45 02:00 Temperature Pulse Rate 128 H 128 H 128 H Respiratory 30 H 30 H 30 H Rate Blood Pressure 104/38 106/39 104/41 O2 Sat by Pulse Oximetry O2 Sat by Pulse Oximetry [ Anterior Bilateral Throughout] 09/22/20 09/22/20 09/22/20 02:15 02:30 02:45 Temperature Pulse Rate 129 H 110 H 127 H Respiratory 30 H 30 H 30 H Rate Blood Pressure 111/34 104/33 118/44 O2 Sat by Pulse 83 L Oximetry O2 Sat by Pulse Oximetry [ Anterior Bilateral Throughout] 09/22/20 09/22/20 09/22/20 03:00 03:15 03:22 Temperature 102.7 F H Pulse Rate 128 H 127 H Respiratory 30 H 30 H Rate Blood Pressure 121/43 93/35 O2 Sat by Pulse 78 L 75 L Oximetry O2 Sat by Pulse Oximetry [ Anterior Bilateral Throughout] 09/22/20 09/22/20 09/22/20 03:30 03:45 04:00 Temperature Pulse Rate 127 H 128 H 128 H Respiratory 30 H 30 H 30 H Rate Blood Pressure 112/40 125/30 106/30 O2 Sat by Pulse 83 L 84 85 Oximetry O2 Sat by Pulse Oximetry [ Anterior Bilateral Throughout] 09/22/20 09/22/20 09/22/20 04:15 04:27 04:30 Temperature Pulse Rate 126 H 127 H 127 H Respiratory 30 H 30 H Rate Blood Pressure 96/31 96/31 99/40 O2 Sat by Pulse 86 84 83 L Oximetry O2 Sat by Pulse Oximetry [ Anterior Bilateral Throughout] 09/22/20 09/22/20 09/22/20 04:45 05:00 05:15 Temperature Pulse Rate 126 H 125 H 119 H Respiratory 30 H 30 H 30 H Rate Blood Pressure 102/40 100/38 109/11 O2 Sat by Pulse 75 L 82 L Oximetry O2 Sat by Pulse Oximetry [ Anterior Bilateral Throughout] 09/22/20 09/22/20 09/22/20 05:30 05:45 06:00 Temperature Pulse Rate 123 H 125 H 127 H Respiratory 30 H 30 H 30 H Rate Blood Pressure 104/26 122/38 121/34 O2 Sat by Pulse 90 91 86 Oximetry O2 Sat by Pulse Oximetry [ Anterior Bilateral Throughout] 09/22/20 09/22/20 09/22/20 06:15 06:30 06:46 Temperature Pulse Rate 130 H 132 H 131 H Respiratory 30 H 30 H 30 H Rate Blood Pressure 130/46 139/32 139/32 O2 Sat by Pulse 85 83 L 84 Oximetry O2 Sat by Pulse Oximetry [ Anterior Bilateral Throughout] 09/22/20 09/22/20 09/22/20 07:00 07:15 07:30 Temperature Pulse Rate 131 H 132 H 132 H Respiratory 30 H 30 H 30 H Rate Blood Pressure 136/27 129/42 137/35 O2 Sat by Pulse 86 84 85 Oximetry O2 Sat by Pulse Oximetry [ Anterior Bilateral Throughout] 09/22/20 09/22/20 09/22/20 07:45 08:00 08:07 Temperature 104 F H Pulse Rate 131 H 131 H 130 H Respiratory 30 H 30 H Rate Blood Pressure 123/30 134/33 134/33 O2 Sat by Pulse 86 87 88 Oximetry O2 Sat by Pulse Oximetry [ Anterior Bilateral Throughout] 09/22/20 09/22/20 09/22/20 08:15 08:30 08:45 Temperature Pulse Rate 131 H 129 H 129 H Respiratory 30 H 30 H 30 H Rate Blood Pressure 122/43 126/37 114/45 O2 Sat by Pulse 87 88 Oximetry O2 Sat by Pulse Oximetry [ Anterior Bilateral Throughout] 09/22/20 09/22/20 09/22/20 09:00 09:15 09:30 Temperature 102.8 F H Pulse Rate 130 H 132 H 128 H Respiratory 30 H 30 H 30 H Rate Blood Pressure 109/45 109/45 130/37 O2 Sat by Pulse 86 94 88 Oximetry O2 Sat by Pulse 94 Oximetry [ Anterior Bilateral Throughout] 09/22/20 09/22/20 09/22/20 09:45 10:00 10:01 Temperature Pulse Rate 127 H 124 H 126 H Respiratory 30 H 30 H Rate Blood Pressure 137/47 110/35 110/35 O2 Sat by Pulse 86 87 Oximetry O2 Sat by Pulse Oximetry [ Anterior Bilateral Throughout] 09/22/20 09/22/20 09/22/20 10:11 10:15 10:21 Temperature Pulse Rate 124 H 124 H 123 H Respiratory 30 H 30 H Rate Blood Pressure 130/37 101/45 101/45 O2 Sat by Pulse 87 87 Oximetry O2 Sat by Pulse Oximetry [ Anterior Bilateral Throughout] 09/22/20 09/22/20 09/22/20 10:30 10:41 10:45 Temperature Pulse Rate 123 H 122 H 124 H Respiratory 30 H 30 H Rate Blood Pressure 105/33 105/33 105/33 O2 Sat by Pulse 88 87 Oximetry O2 Sat by Pulse Oximetry [ Anterior Bilateral Throughout] 09/22/20 09/22/20 09/22/20 10:51 11:00 11:01 Temperature Pulse Rate 121 H 118 H 120 H Respiratory 30 H 30 H Rate Blood Pressure 112/23 112/46 97/28 O2 Sat by Pulse 86 83 L Oximetry O2 Sat by Pulse Oximetry [ Anterior Bilateral Throughout] 09/22/20 09/22/20 09/22/20 11:11 11:15 11:18 Temperature Pulse Rate 118 H 118 H 119 H Respiratory 30 H Rate Blood Pressure 112/46 113/38 113/38 O2 Sat by Pulse 89 87 Oximetry O2 Sat by Pulse Oximetry [ Anterior Bilateral Throughout] 09/22/20 09/22/20 09/22/20 11:21 11:31 11:41 Temperature Pulse Rate 118 H 119 H 122 H Respiratory 30 H 30 H 30 H Rate Blood Pressure 113/38 95/27 166/24 O2 Sat by Pulse 88 83 L 88 Oximetry O2 Sat by Pulse Oximetry [ Anterior Bilateral Throughout] 09/22/20 09/22/20 09/22/20 11:51 12:00 12:11 Temperature 102.5 F H Pulse Rate 124 H 127 H 128 H Respiratory 30 H 30 H 30 H Rate Blood Pressure 179/33 152/36 166/24 O2 Sat by Pulse 96 99 Oximetry O2 Sat by Pulse Oximetry [ Anterior Bilateral Throughout] 09/22/20 12:21 Temperature Pulse Rate 127 H Respiratory 30 H Rate Blood Pressure 165/30 O2 Sat by Pulse 98 Oximetry O2 Sat by Pulse Oximetry [ Anterior Bilateral Throughout] - General Appearance General appearance: well-developed, well-nourished, appears stated age, intubated EENT: PERRL, mucous membranes moist Neck: no JVD, other (Left IJ Vas-Cath in place) Respiratory: Present: Clear to Ascultation, Decreased Breath Sounds (At the bases) Cardiology: regular, normal heart rate, S1S2, no murmurs Gastrointestinal: normal, normoactive bowel sounds Integumentary: other (1+ edema) - Lab 09/22/20 04:45 09/22/20 04:45 Most recent lab results ABG pH 7.051 (7.320-7.450) L 09/22/20 01:48 ABG O2 Saturation 93.8 (0-100) 09/22/20 01:48 Calcium 8.1 mg/dL (8.4-10.2) L 09/22/20 04:45 Phosphorus 5.20 mg/dL (2.5-4.5) H 09/18/20 05:15 Magnesium 2.00 mg/dL (1.7-2.3) 09/18/20 05:15 Urine Creatinine 43.2 mg/dL (0.1-20.0) H 09/12/20 13:30 Urine Sodium 58 mmol/L 09/12/20 13:30 Medications & Allergies - Medications Allergies/Adverse Reactions: Allergies heparin Allergy (Severe, Verified 09/22/20 11:59) HIT lisinopril Allergy (Severe, Verified 09/08/20 16:33) Angioedema Home Medications: Home Medications Medication Instructions Recorded Confirmed Last Taken Type Losartan 100 mg PO DAILY 09/09/20 09/09/20 09/08/20 08:00 History Metformin HCl 500 mg PO BID 09/09/20 09/09/20 09/08/20 History 500 carvediloL 3.125 mg PO BID 09/09/20 09/09/20 09/08/20 History glipiZIDE 10 mg PO AC 09/09/20 09/09/20 09/08/20 08:00 History Active Medications: Generic Name Dose Route Start Last Admin Trade Name Freq PRN Reason Stop Dose Admin Acetaminophen 650 mg 09/08/20 20:23 09/22/20 08:04 Acetaminophen 325 Mg Tab PO 650 mg Q4H PRN Administration Pain MILD(1-3)/Fever >100.5/CORTEZ Albuterol 2.5 mg 09/08/20 20:23 Albuterol 2.5 Mg/3 Ml Nebu IH Q4HRT PRN Shortness Of Breath Albuterol/Ipratropium 1 ampul 09/13/20 12:30 09/22/20 10:14 Ipratropium/Albuterol Sulfate 3 Ml Ampul.Neb IH Not Given BID ISIAH Lipase/Protease/Amylase 1 each 09/11/20 11:45 Lipase 10,500/Protease 25,000/Amylase 43,750 (Units) Dr Issa FEEDTUBE PRN PRN For Clogged Feeding Tube Ascorbic Acid 500 mg 09/08/20 22:00 09/22/20 09:02 Ascorbic Acid 500 Mg Tab PO 500 mg BID ISIAH Administration Cholecalciferol 1,000 unit 09/09/20 10:00 09/22/20 09:02 Cholecalciferol (Vit D3) 1000 Unit (25 Mcg) Tab PO 1,000 unit QDAY ISIAH Administration Famotidine 10 mg 09/14/20 22:00 09/22/20 09:02 Famotidine 20 Mg/2 Ml Inj IV 10 mg BID ISIAH Administration Fentanyl 50 mcg 09/13/20 12:12 Fentanyl 100 Mcg/2 Ml Inj IV Q10MIN PRN ANALGESIA Guaifenesin 10 ml 09/09/20 16:01 09/10/20 05:14 Guaifenesin Dm 200/20 Mg Oral Liqd 10 Ml PO 10 ml Q4H PRN Administration Cough Hydralazine HCl 10 mg 09/11/20 21:33 Hydralazine 20 Mg/1 Ml Inj IV Q4H PRN Hypertension Fentanyl Citrate 2,000 mcg in 100 mls @ 7.45 mls/hr 09/10/20 23:00 09/22/20 11:19 Fentanyl Drip Premix IV 4 mcg/kg/hr TITR ISIAH 29.8 mls/hr Administration Protocol 1 MCG/KG/HR Vasopressin 20 unit/ Sodium 101 mls @ 9.09 mls/hr 09/11/20 22:00 09/22/20 11:13 Chloride IV 0.03 units/min TITR ISIAH 9.09 mls/hr Administration Protocol 0.03 UNITS/MIN Midazolam HCl 100 mg/ Sodium 100 mls @ 1 mls/hr 09/12/20 17:30 09/22/20 00:20 Chloride IV 4 mg/hr TITR ISIAH 4 mls/hr Administration Protocol 1 MG/HR Propofol 1,000 mg in 100 mls @ 4.47 mls/hr 09/13/20 13:00 09/22/20 11:18 Diprivan 10 Mg/Ml IV 50 mcg/kg/min TITR ISIAH 44.7 mls/hr Administration Protocol 5 MCG/KG/MIN Sodium Chloride 1,000 mls @ 110 mls/hr 09/15/20 05:30 Nacl 0.9% 1000 Ml IV DIRECT ISIAH Fluconazole 200 mg in 100 mls @ 100 mls/hr 09/18/20 14:00 09/21/20 14:16 Diflucan IV 100 mls/hr Q24H ISIAH Administration NORepinephrine/NS 8 MG-250 ML 8 mg in 250 mls @ 3.75 mls/hr 09/20/20 10:00 09/22/20 09:21 Norepinephrine/Ns 8 Mg-250 Ml (Double Conc) IV 30 mcg/min TITRATE ISIAH 56.25 mls/hr Administration Protocol 2 MCG/MIN Sodium Chloride 100 mls @ 999 mls/hr 09/21/20 09:30 Nacl 0.9% IV NABEEL PRN Hypotension MEROPENEM/NS 1 GRAM/100 ML 1 gram in 100 mls @ 100 mls/hr 09/21/20 15:00 09/21/20 15:20 Merrem/Ns 1 Gram/100 Ml IV 100 mls/hr Q24H ISIAH Administration Protocol Phenylephrine HCl 100 mg/ 100 mls @ 3 mls/hr 09/21/20 14:15 09/22/20 11:13 Sodium Chloride IV 50 mcg/min TITR ISIAH 3 mls/hr Administration Protocol 50 MCG/MIN Insulin Human Lispro 0 unit 09/11/20 12:00 09/22/20 05:45 Insulin Lispro 100 Unit/Ml SUB-Q Not Given Q6HR ISIAH Protocol Metoclopramide HCl 5 mg 09/19/20 12:00 09/22/20 08:03 Metoclopramide 10 Mg/2 Ml Inj IV 5 mg Q8H ISIAH Administration Midazolam HCl 2 mg 09/12/20 17:30 09/21/20 11:46 Midazolam 2 Mg/2 Ml Inj IV 2 mg Q10MIN PRN Administration Sedation Senna/Docusate Sodium 2 tab 09/19/20 12:00 09/22/20 09:03 Sennosides/Docusate Sodium 8.6/50 Mg Tab PO 2 tab BID ISIAH Administration Simple Syrup 15 ml 09/11/20 11:45 Simple Syrup 15 Ml FEEDTUBE PRN PRN Hypoglycemia Simple Syrup 30 ml 09/11/20 11:45 Simple Syrup 15 Ml FEEDTUBE PRN PRN Hypoglycemia Sodium Bicarbonate 325 mg 09/11/20 11:45 Sodium Bicarbonate 325 Mg Tab FEEDTUBE PRN PRN For Clogged Feeding Tube Sodium Chloride 10 ml 09/08/20 22:00 09/22/20 09:04 Sodium Chloride 0.9% 10 Ml Flush Syringe IV 10 ml BID ISIAH Administration Sodium Chloride 10 ml 09/08/20 20:23 Sodium Chloride 0.9% 10 Ml Flush Syringe IV PRN PRN LINE FLUSH Zinc Sulfate 220 mg 09/08/20 22:00 09/22/20 09:18 Zinc Sulfate 220 Mg Cap PO 220 mg BID ISIAH Administration
[2020-09-22] MEDS ORDERED: SODIUM CHLORIDE 0.9% 100 ML IV PRN (13:00)
[2020-09-22] MEDS: FLUCONAZOLE 200 MG 200 MG/100 ML BAG IV SCH (13:19)
--- NOTE | 2020-09-22 13:47 | Progress Note ---
Assessment and Plan Acute hypoxemic respiratory failure Acute respiratory distress syndrome COVID-19 infection Bilateral pneumonia Severe Sepsis Thrombocytopenia Diabetes Hypertension Obesity Leukopenia Elevated serum inflammatory markers to include D-dimer, ferritin and LDH - begin Neosynephrine and wean Levophed re: tachyarrythmia's - hematology consult placed - repeat platelet count in am - keep peep at 18 cm H2O - continue Reglan to 10 mg IV q8h - HD/UF per nephrology prescription for toxin and volume clearance - follow HIT assay - continue care as below otherwise; - continue to hold proning re: risk of decompensation and especially at time of un-proning which has been met with severe worsening of hypoxemia; also she is showing improvement with avoidance of supine position as much as possible - continue HD/UF for toxin and volume clearance - repeat CBC in am re: thrombocytopenia - continue to wean vasopressors for target MAP > 65 mmHg - continue chacon catheter for strict I's & O's - continue Daily SAT and SBT assessment as tolerated - continue to wean supplemental oxygen for target O2 sat's > 90% acutely - VAP bundle addressed - continue lung protective strategies - continue bronchodilators with pulmonary hygiene per RT - wean per pulmonary driven protocols otherwise - avoid nephrotoxins, renally dose all medications - continue accuchecks with glycemic control per SSI (While critically ill target blood glucose of 140-180 mg/dL; avoid hypoglycemia) - sedation prn for target RASS 0 to -1 - continue to avoid benzodiazepine's, reduce the possibility of delirium - complete AB's per ID rec's - prn analgesia per CPOT score - Maintenance of sleep-wake cycle, avoid delirium - continue enteral nutritional support at goal rate as tolerated - G.I. & VTE prophylaxis - PT/OT/ROM exercises - continue mobility protocols for pressure ulcer prophylaxis - Monitor hemodynamics closely - continue other care per attending / other consultants - discharge planning ongoing concurrently COVID SPECIFIC INTERVENTIONS - Remdesivir as per ID/Pulmonary developed protocols (ordered) - to receive Actemra - continue systemic steroids for severe COVID-19 infection empirically - follow repeat COVID tests results - zinc and vitamin C supplementation - Monitor inflammatory markers per facility protocol - ferritin, Ddimer, CRP - therapeutic anticoagulation per system Protocol based on d-dimer and clinical considerations - Continue contact and airborne isolation .... Re-evaluate in am & prn CONDITION: CRITICAL PROGNOSIS: GUARDED CODE STATUS: FULL CODE The high probability of a clinically significant, sudden or life-threatening deterioration of the [respiratory, cardiovascular & neurologic] system(s) required my full and direct attention, intervention and personal management. The aggregate critical care time was [32] minutes without overlap. Time includes spent on; [x] Data Review and interpretation [x] Patient assessment and monitoring of vital signs [x] Documentation [x] Medication orders and management Subjective Date of service: 09/22/20 Principal diagnosis: Ac hypoxemic resp failure; ARDS; COVID-19 infxn; PNA; DM II; Obesity Interval history: Patient is seen today for: Ac hypoxemic resp failure; ARDS; COVID-19 infxn; PNA; DM II; Obesity Seen and examined at bedside; 24hour events reviewed; nursing and respiratory care staff consulted; no adverse overnight events reported to me; resting in bed; remains on MVS; Objective Vital Signs - 12hr 09/22/20 09/22/20 09/22/20 02:00 02:15 02:30 Temperature Pulse Rate 128 H 129 H 110 H Respiratory 30 H 30 H 30 H Rate Blood Pressure 104/41 111/34 104/33 O2 Sat by Pulse Oximetry O2 Sat by Pulse Oximetry [ Anterior Bilateral Throughout] 09/22/20 09/22/20 09/22/20 02:45 03:00 03:15 Temperature Pulse Rate 127 H 128 H 127 H Respiratory 30 H 30 H 30 H Rate Blood Pressure 118/44 121/43 93/35 O2 Sat by Pulse 83 L 78 L 75 L Oximetry O2 Sat by Pulse Oximetry [ Anterior Bilateral Throughout] 09/22/20 09/22/20 09/22/20 03:22 03:30 03:45 Temperature 102.7 F H Pulse Rate 127 H 128 H Respiratory 30 H 30 H Rate Blood Pressure 112/40 125/30 O2 Sat by Pulse 83 L 84 Oximetry O2 Sat by Pulse Oximetry [ Anterior Bilateral Throughout] 09/22/20 09/22/20 09/22/20 04:00 04:15 04:27 Temperature Pulse Rate 128 H 126 H 127 H Respiratory 30 H 30 H Rate Blood Pressure 106/30 96/31 96/31 O2 Sat by Pulse 85 86 84 Oximetry O2 Sat by Pulse Oximetry [ Anterior Bilateral Throughout] 09/22/20 09/22/20 09/22/20 04:30 04:45 05:00 Temperature Pulse Rate 127 H 126 H 125 H Respiratory 30 H 30 H 30 H Rate Blood Pressure 99/40 102/40 100/38 O2 Sat by Pulse 83 L 75 L 82 L Oximetry O2 Sat by Pulse Oximetry [ Anterior Bilateral Throughout] 09/22/20 09/22/20 09/22/20 05:15 05:30 05:45 Temperature Pulse Rate 119 H 123 H 125 H Respiratory 30 H 30 H 30 H Rate Blood Pressure 109/11 104/26 122/38 O2 Sat by Pulse 90 91 Oximetry O2 Sat by Pulse Oximetry [ Anterior Bilateral Throughout] 09/22/20 09/22/20 09/22/20 06:00 06:15 06:30 Temperature Pulse Rate 127 H 130 H 132 H Respiratory 30 H 30 H 30 H Rate Blood Pressure 121/34 130/46 139/32 O2 Sat by Pulse 86 85 83 L Oximetry O2 Sat by Pulse Oximetry [ Anterior Bilateral Throughout] 09/22/20 09/22/20 09/22/20 06:46 07:00 07:15 Temperature Pulse Rate 131 H 131 H 132 H Respiratory 30 H 30 H 30 H Rate Blood Pressure 139/32 136/27 129/42 O2 Sat by Pulse 84 86 84 Oximetry O2 Sat by Pulse Oximetry [ Anterior Bilateral Throughout] 09/22/20 09/22/20 09/22/20 07:30 07:45 08:00 Temperature 104 F H Pulse Rate 132 H 131 H 131 H Respiratory 30 H 30 H 30 H Rate Blood Pressure 137/35 123/30 134/33 O2 Sat by Pulse 85 86 87 Oximetry O2 Sat by Pulse Oximetry [ Anterior Bilateral Throughout] 09/22/20 09/22/20 09/22/20 08:07 08:15 08:30 Temperature Pulse Rate 130 H 131 H 129 H Respiratory 30 H 30 H Rate Blood Pressure 134/33 122/43 126/37 O2 Sat by Pulse 88 87 Oximetry O2 Sat by Pulse Oximetry [ Anterior Bilateral Throughout] 09/22/20 09/22/20 09/22/20 08:45 09:00 09:15 Temperature Pulse Rate 129 H 130 H 132 H Respiratory 30 H 30 H 30 H Rate Blood Pressure 114/45 109/45 109/45 O2 Sat by Pulse 88 86 94 Oximetry O2 Sat by Pulse Oximetry [ Anterior Bilateral Throughout] 09/22/20 09/22/20 09/22/20 09:30 09:45 10:00 Temperature 102.8 F H Pulse Rate 128 H 127 H 124 H Respiratory 30 H 30 H Rate Blood Pressure 130/37 137/47 110/35 O2 Sat by Pulse 88 86 Oximetry O2 Sat by Pulse 94 Oximetry [ Anterior Bilateral Throughout] 09/22/20 09/22/20 09/22/20 10:01 10:11 10:15 Temperature Pulse Rate 126 H 124 H 124 H Respiratory 30 H 30 H Rate Blood Pressure 110/35 130/37 101/45 O2 Sat by Pulse 87 87 Oximetry O2 Sat by Pulse Oximetry [ Anterior Bilateral Throughout] 09/22/20 09/22/20 09/22/20 10:21 10:30 10:41 Temperature Pulse Rate 123 H 123 H 122 H Respiratory 30 H 30 H 30 H Rate Blood Pressure 101/45 105/33 105/33 O2 Sat by Pulse 87 88 87 Oximetry O2 Sat by Pulse Oximetry [ Anterior Bilateral Throughout] 09/22/20 09/22/20 09/22/20 10:45 10:51 11:00 Temperature Pulse Rate 124 H 121 H 118 H Respiratory 30 H Rate Blood Pressure 105/33 112/23 112/46 O2 Sat by Pulse 86 Oximetry O2 Sat by Pulse Oximetry [ Anterior Bilateral Throughout] 09/22/20 09/22/20 09/22/20 11:01 11:11 11:15 Temperature Pulse Rate 120 H 118 H 118 H Respiratory 30 H 30 H Rate Blood Pressure 97/28 112/46 113/38 O2 Sat by Pulse 83 L 89 Oximetry O2 Sat by Pulse Oximetry [ Anterior Bilateral Throughout] 09/22/20 09/22/20 09/22/20 11:18 11:21 11:30 Temperature Pulse Rate 119 H 118 H 120 H Respiratory 30 H Rate Blood Pressure 113/38 113/38 84/37 O2 Sat by Pulse 87 88 Oximetry O2 Sat by Pulse Oximetry [ Anterior Bilateral Throughout] 09/22/20 09/22/20 09/22/20 11:31 11:41 11:51 Temperature Pulse Rate 119 H 122 H 124 H Respiratory 30 H 30 H 30 H Rate Blood Pressure 95/27 166/24 179/33 O2 Sat by Pulse 83 L 88 Oximetry O2 Sat by Pulse Oximetry [ Anterior Bilateral Throughout] 09/22/20 09/22/20 09/22/20 12:00 12:11 12:21 Temperature 102.5 F H Pulse Rate 127 H 128 H 127 H Respiratory 30 H 30 H 30 H Rate Blood Pressure 152/36 166/24 165/30 O2 Sat by Pulse 96 99 98 Oximetry O2 Sat by Pulse Oximetry [ Anterior Bilateral Throughout] Constitutional: appears uncomfortable, other (elderly obese female with mildly increased respiratory effort at rest on MVS) Eyes: non-icteric ENT: oropharynx moist, other (ETT 24 cm STEVEN) Neck: supple, other (large circumference) Effort: mildly labored Ascultation: Bilateral: diminished breath sounds, rhonchi Percussion: Bilateral: not dull Cardiovascular: regular rate and rhythm Gastrointestinal: normoactive bowel sounds, soft, non-tender, non-distended (protuberant) Integumentary: other (some excoriation to skin of face) Extremities: no cyanosis, pulses normal, no ischemia or petechiae, edema (1+) Neurologic: pupils equal and round, motor strength normal and, unable to assess, other (sedated) Psychiatric: other (unable to assess) CBC and BMP: 09/22/20 04:45 09/22/20 04:45 ABG, PT/INR, D-dimer: ABG ABG pH 7.051 (7.320-7.450) L 09/22/20 01:48 POC ABG pCO2 55.4 mmHg (32.0-48.0) H 09/22/20 01:48 POC ABG pO2 90.7 mmHg (83-108) 09/22/20 01:48 POC ABG HCO3 15.0 09/22/20 01:48 ABG O2 Saturation 93.8 (0-100) 09/22/20 01:48 PT/INR, D-dimer PT 18.8 Sec. (12.2-14.9) H 09/15/20 14:00 INR 1.52 (0.87-1.13) H 09/15/20 14:00 D-Dimer > 78771 ng/mlDDU (0-234) H 09/19/20 05:12 Abnormal lab findings: Abnormal Labs 09/08/20 09/08/20 09/08/20 17:37 17:37 17:37 WBC 4.3 L RBC Hgb Hct RDW Plt Count 106 L Lymph % (Auto) [place] % (Auto) 7.5 H Lymph # (Auto) 0.6 L Seg Neutrophils % 77.4 H Seg Neuts % (Manual) Lymphocytes % (Manual) Seg Neutrophils # Seg Neutrophils # Man Lymphocytes # (Manual) PT INR D-Dimer 741.67 H Heparin Anti-Xa Level Heparin Anti-Xa, Unfract ABG pH POC ABG pCO2 POC ABG pO2 ABG Hemoglobin ABG Oxyhemoglobin ABG Sodium ABG Potassium ABG Chloride ABG Glucose Carboxyhemoglobin Sodium 129 L Potassium Chloride 91.9 L Carbon Dioxide BUN 32 H Creatinine 1.5 H Glucose 200 H POC Glucose Calcium 8.1 L Phosphorus Magnesium Ferritin AST 49 H Lactate Dehydrogenase C-Reactive Protein Total Protein Albumin 2.7 L TSH Arterial Blood Glucose Arterial Blood Ionized Calcium Ur Specific [place] Urine Creatinine Heparin-induced Plt Ab Coronavirus (PCR) 09/08/20 09/08/20 09/08/20 17:37 17:37 22:24 WBC RBC Hgb Hct RDW Plt Count Lymph % (Auto) [place] % (Auto) Lymph # (Auto) Seg Neutrophils % Seg Neuts % (Manual) Lymphocytes % (Manual) Seg Neutrophils # Seg Neutrophils # Man Lymphocytes # (Manual) PT INR D-Dimer Heparin Anti-Xa Level Heparin Anti-Xa, Unfract ABG pH POC ABG pCO2 POC ABG pO2 ABG Hemoglobin ABG Oxyhemoglobin ABG Sodium ABG Potassium ABG Chloride ABG Glucose Carboxyhemoglobin Sodium Potassium Chloride Carbon Dioxide BUN Creatinine Glucose 201 H POC Glucose Calcium Phosphorus Magnesium Ferritin 731.2 H AST Lactate Dehydrogenase 396 H C-Reactive Protein 7.00 H Total Protein Albumin TSH Arterial Blood Glucose Arterial Blood Ionized Calcium Ur Specific [place] 1.035 H Urine Creatinine Heparin-induced Plt Ab Coronavirus (PCR) 09/08/20 09/09/20 09/09/20 23:35 07:30 08:28 WBC 3.4 L RBC Hgb 15.5 H Hct 47.1 H RDW Plt Count 95 L Lymph % (Auto) 9.5 L [place] % (Auto) Lymph # (Auto) 0.3 L Seg Neutrophils % 85.2 H Seg Neuts % (Manual) Lymphocytes % (Manual) Seg Neutrophils # Seg Neutrophils # Man Lymphocytes # (Manual) PT INR D-Dimer Heparin Anti-Xa Level Heparin Anti-Xa, Unfract ABG pH POC ABG pCO2 POC ABG pO2 ABG Hemoglobin ABG Oxyhemoglobin ABG Sodium ABG Potassium ABG Chloride ABG Glucose Carboxyhemoglobin Sodium Potassium Chloride Carbon Dioxide BUN Creatinine Glucose POC Glucose 188 H 281 H Calcium Phosphorus Magnesium Ferritin AST Lactate Dehydrogenase C-Reactive Protein Total Protein Albumin TSH Arterial Blood Glucose Arterial Blood Ionized Calcium Ur Specific [place] Urine Creatinine Heparin-induced Plt Ab Coronavirus (PCR) 09/09/20 09/09/20 09/09/20 08:28 09:00 11:48 WBC RBC Hgb Hct RDW Plt Count Lymph % (Auto) [place] % (Auto) Lymph # (Auto) Seg Neutrophils % Seg Neuts % (Manual) Lymphocytes % (Manual) Seg Neutrophils # Seg Neutrophils # Man Lymphocytes # (Manual) PT INR D-Dimer Heparin Anti-Xa Level Heparin Anti-Xa, Unfract ABG pH POC ABG pCO2 POC ABG pO2 ABG Hemoglobin ABG Oxyhemoglobin ABG Sodium ABG Potassium ABG Chloride ABG Glucose Carboxyhemoglobin Sodium 130 L Potassium Chloride 93.5 L Carbon Dioxide BUN 31 H Creatinine 1.3 H Glucose 266 H POC Glucose 354 H Calcium Phosphorus Magnesium Ferritin AST 48 H Lactate Dehydrogenase C-Reactive Protein Total Protein Albumin 2.8 L TSH Arterial Blood Glucose Arterial Blood Ionized Calcium Ur Specific [place] Urine Creatinine Heparin-induced Plt Ab Coronavirus (PCR) Positive A 09/09/20 09/09/20 09/10/20 17:21 21:15 08:00 WBC RBC Hgb Hct RDW Plt Count Lymph % (Auto) [place] % (Auto) Lymph # (Auto) Seg Neutrophils % Seg Neuts % (Manual) Lymphocytes % (Manual) Seg Neutrophils # Seg Neutrophils # Man Lymphocytes # (Manual) PT INR D-Dimer Heparin Anti-Xa Level Heparin Anti-Xa, Unfract ABG pH POC ABG pCO2 POC ABG pO2 ABG Hemoglobin ABG Oxyhemoglobin ABG Sodium ABG Potassium ABG Chloride ABG Glucose Carboxyhemoglobin Sodium Potassium Chloride Carbon Dioxide BUN Creatinine Glucose POC Glucose 332 H 226 H 240 H Calcium Phosphorus Magnesium Ferritin AST Lactate Dehydrogenase C-Reactive Protein Total Protein Albumin TSH Arterial Blood Glucose Arterial Blood Ionized Calcium Ur Specific [place] Urine Creatinine Heparin-induced Plt Ab Coronavirus (PCR) 09/10/20 09/10/20 09/10/20 12:12 15:14 16:43 WBC RBC Hgb Hct RDW Plt Count Lymph % (Auto) [place] % (Auto) Lymph # (Auto) Seg Neutrophils % Seg Neuts % (Manual) Lymphocytes % (Manual) Seg Neutrophils # Seg Neutrophils # Man Lymphocytes # (Manual) PT INR D-Dimer Heparin Anti-Xa Level Heparin Anti-Xa, Unfract ABG pH POC ABG pCO2 48.5 H POC ABG pO2 51.9 L ABG Hemoglobin ABG Oxyhemoglobin 85.1 L ABG Sodium 135.6 L ABG Potassium ABG Chloride ABG Glucose 310 H Carboxyhemoglobin Sodium 132 L Potassium Chloride 93.2 L Carbon Dioxide BUN 43 H Creatinine 1.6 H Glucose 277 H POC Glucose 267 H Calcium Phosphorus Magnesium Ferritin AST 49 H Lactate Dehydrogenase C-Reactive Protein Total Protein 8.3 H Albumin 3.0 L TSH Arterial Blood Glucose 310 H Arterial Blood Ionized Calcium Ur Specific [place] Urine Creatinine Heparin-induced Plt Ab Coronavirus (PCR) 09/10/20 09/10/20 09/11/20 21:34 23:33 05:56 WBC RBC Hgb Hct RDW Plt Count Lymph % (Auto) [place] % (Auto) Lymph # (Auto) Seg Neutrophils % Seg Neuts % (Manual) Lymphocytes % (Manual) Seg Neutrophils # Seg Neutrophils # Man Lymphocytes # (Manual) PT INR D-Dimer Heparin Anti-Xa Level Heparin Anti-Xa, Unfract ABG pH POC ABG pCO2 POC ABG pO2 ABG Hemoglobin ABG Oxyhemoglobin ABG Sodium 135.9 L ABG Potassium ABG Chloride ABG Glucose 341 H Carboxyhemoglobin Sodium 133 L Potassium Chloride 94.2 L Carbon Dioxide BUN 54 H Creatinine 1.6 H Glucose 318 H POC Glucose 306 H Calcium Phosphorus Magnesium Ferritin AST 46 H Lactate Dehydrogenase C-Reactive Protein Total Protein Albumin 2.7 L TSH Arterial Blood Glucose 341 H Arterial Blood Ionized Calcium 4.5 L Ur Specific [place] Urine Creatinine Heparin-induced Plt Ab Coronavirus (PCR) 09/11/20 09/11/20 09/11/20 05:56 07:22 09:00 WBC RBC Hgb Hct RDW Plt Count Lymph % (Auto) [place] % (Auto) Lymph # (Auto) Seg Neutrophils % Seg Neuts % (Manual) Lymphocytes % (Manual) Seg Neutrophils # Seg Neutrophils # Man Lymphocytes # (Manual) PT INR D-Dimer Heparin Anti-Xa Level Heparin Anti-Xa, Unfract ABG pH POC ABG pCO2 POC ABG pO2 80.1 L ABG Hemoglobin ABG Oxyhemoglobin ABG Sodium 134.5 L ABG Potassium ABG Chloride ABG Glucose 334 H Carboxyhemoglobin Sodium Potassium Chloride Carbon Dioxide BUN Creatinine Glucose POC Glucose 305 H Calcium Phosphorus Magnesium Ferritin AST Lactate Dehydrogenase 755 H C-Reactive Protein 5.50 H Total Protein Albumin TSH Arterial Blood Glucose 334 H Arterial Blood Ionized Calcium Ur Specific [place] Urine Creatinine Heparin-induced Plt Ab Coronavirus (PCR) 09/11/20 09/11/20 09/11/20 11:33 18:17 19:00 WBC RBC Hgb Hct RDW Plt Count Lymph % (Auto) [place] % (Auto) Lymph # (Auto) Seg Neutrophils % Seg Neuts % (Manual) Lymphocytes % (Manual) Seg Neutrophils # Seg Neutrophils # Man Lymphocytes # (Manual) PT INR D-Dimer Heparin Anti-Xa Level Heparin Anti-Xa, Unfract ABG pH POC ABG pCO2 POC ABG pO2 146.4 H ABG Hemoglobin ABG Oxyhemoglobin 98.3 H ABG Sodium ABG Potassium ABG Chloride ABG Glucose 267 H Carboxyhemoglobin 0.4 L Sodium Potassium Chloride Carbon Dioxide BUN Creatinine Glucose POC Glucose 304 H 296 H Calcium Phosphorus Magnesium Ferritin AST Lactate Dehydrogenase C-Reactive Protein Total Protein Albumin TSH Arterial Blood Glucose 267 H Arterial Blood Ionized Calcium Ur Specific [place] Urine Creatinine Heparin-induced Plt Ab Coronavirus (PCR) 09/11/20 09/11/20 09/11/20 20:30 22:23 Unknown WBC RBC Hgb Hct RDW Plt Count Lymph % (Auto) [place] % (Auto) Lymph # (Auto) Seg Neutrophils % Seg Neuts % (Manual) Lymphocytes % (Manual) Seg Neutrophils # Seg Neutrophils # Man Lymphocytes # (Manual) PT INR D-Dimer 1324.85 H Heparin Anti-Xa Level Heparin Anti-Xa, Unfract ABG pH POC ABG pCO2 POC ABG pO2 ABG Hemoglobin ABG Oxyhemoglobin ABG Sodium ABG Potassium ABG Chloride ABG Glucose Carboxyhemoglobin Sodium Potassium Chloride Carbon Dioxide BUN Creatinine Glucose POC Glucose 268 H Calcium Phosphorus Magnesium Ferritin 1434.0 H AST Lactate Dehydrogenase C-Reactive Protein Total Protein Albumin TSH Arterial Blood Glucose Arterial Blood Ionized Calcium Ur Specific [place] Urine Creatinine Heparin-induced Plt Ab Coronavirus (PCR) 09/11/20 09/12/20 09/12/20 Unknown 04:00 05:30 WBC RBC Hgb Hct RDW Plt Count Lymph % (Auto) [place] % (Auto) Lymph # (Auto) Seg Neutrophils % Seg Neuts % (Manual) Lymphocytes % (Manual) Seg Neutrophils # Seg Neutrophils # Man Lymphocytes # (Manual) PT INR D-Dimer Heparin Anti-Xa Level Heparin Anti-Xa, Unfract ABG pH POC ABG pCO2 POC ABG pO2 190.7 H ABG Hemoglobin 17.7 H ABG Oxyhemoglobin 98.9 H ABG Sodium ABG Potassium ABG Chloride ABG Glucose 322 H Carboxyhemoglobin 0.2 L Sodium Potassium Chloride Carbon Dioxide BUN 58 H Creatinine 1.8 H Glucose 279 H POC Glucose 313 H Calcium 7.9 L Phosphorus Magnesium Ferritin AST Lactate Dehydrogenase C-Reactive Protein Total Protein Albumin TSH Arterial Blood Glucose 322 H Arterial Blood Ionized Calcium Ur Specific [place] Urine Creatinine Heparin-induced Plt Ab Coronavirus (PCR) 09/12/20 09/12/20 09/12/20 08:43 11:58 13:30 WBC RBC Hgb Hct RDW Plt Count Lymph % (Auto) [place] % (Auto) Lymph # (Auto) Seg Neutrophils % Seg Neuts % (Manual) Lymphocytes % (Manual) Seg Neutrophils # Seg Neutrophils # Man Lymphocytes # (Manual) PT INR D-Dimer Heparin Anti-Xa Level Heparin Anti-Xa, Unfract ABG pH POC ABG pCO2 POC ABG pO2 ABG Hemoglobin ABG Oxyhemoglobin ABG Sodium ABG Potassium ABG Chloride ABG Glucose Carboxyhemoglobin Sodium Potassium Chloride Carbon Dioxide BUN 51 H Creatinine 1.4 H Glucose 317 H POC Glucose 329 H Calcium Phosphorus Magnesium Ferritin AST Lactate Dehydrogenase C-Reactive Protein Total Protein Albumin 3.0 L TSH Arterial Blood Glucose Arterial Blood Ionized Calcium Ur Specific [place] Urine Creatinine 43.2 H Heparin-induced Plt Ab Coronavirus (PCR) 09/12/20 09/12/20 09/12/20 17:17 17:17 17:55 WBC RBC Hgb 14.5 H Hct 43.5 H RDW Plt Count Lymph % (Auto) [place] % (Auto) Lymph # (Auto) Seg Neutrophils % Seg Neuts % (Manual) 96.0 H Lymphocytes % (Manual) 1.0 L Seg Neutrophils # Seg Neutrophils # Man 9.8 H Lymphocytes # (Manual) 0.1 L PT INR D-Dimer Heparin Anti-Xa Level Heparin Anti-Xa, Unfract ABG pH POC ABG pCO2 POC ABG pO2 ABG Hemoglobin ABG Oxyhemoglobin ABG Sodium ABG Potassium ABG Chloride ABG Glucose Carboxyhemoglobin Sodium Potassium Chloride Carbon Dioxide BUN Creatinine Glucose POC Glucose 425 H Calcium Phosphorus Magnesium Ferritin AST Lactate Dehydrogenase C-Reactive Protein Total Protein Albumin TSH 0.067 L Arterial Blood Glucose Arterial Blood Ionized Calcium Ur Specific [place] Urine Creatinine Heparin-induced Plt Ab Coronavirus (PCR) 09/12/20 09/13/20 09/13/20 23:19 03:32 04:22 WBC RBC Hgb Hct RDW Plt Count Lymph % (Auto) [place] % (Auto) Lymph # (Auto) Seg Neutrophils % Seg Neuts % (Manual) Lymphocytes % (Manual) Seg Neutrophils # Seg Neutrophils # Man Lymphocytes # (Manual) PT INR D-Dimer Heparin Anti-Xa Level Heparin Anti-Xa, Unfract ABG pH 7.276 L 7.275 L POC ABG pCO2 54.0 H 54.7 H POC ABG pO2 46.6 L 47.1 L ABG Hemoglobin ABG Oxyhemoglobin 78.9 L 79.4 L ABG Sodium ABG Potassium ABG Chloride ABG Glucose 260 H 261 H Carboxyhemoglobin Sodium Potassium Chloride Carbon Dioxide BUN Creatinine Glucose POC Glucose 348 H Calcium Phosphorus Magnesium Ferritin AST Lactate Dehydrogenase C-Reactive Protein Total Protein Albumin TSH Arterial Blood Glucose 260 H 261 H Arterial Blood Ionized Calcium Ur Specific [place] Urine Creatinine Heparin-induced Plt Ab Coronavirus (PCR) 09/13/20 09/13/20 09/13/20 04:52 11:53 17:13 WBC RBC Hgb Hct RDW Plt Count Lymph % (Auto) [place] % (Auto) Lymph # (Auto) Seg Neutrophils % Seg Neuts % (Manual) Lymphocytes % (Manual) Seg Neutrophils # Seg Neutrophils # Man Lymphocytes # (Manual) PT INR D-Dimer Heparin Anti-Xa Level Heparin Anti-Xa, Unfract ABG pH POC ABG pCO2 POC ABG pO2 ABG Hemoglobin ABG Oxyhemoglobin ABG Sodium ABG Potassium ABG Chloride ABG Glucose Carboxyhemoglobin Sodium Potassium Chloride Carbon Dioxide BUN Creatinine Glucose POC Glucose 229 H 302 H 356 H Calcium Phosphorus Magnesium Ferritin AST Lactate Dehydrogenase C-Reactive Protein Total Protein Albumin TSH Arterial Blood Glucose Arterial Blood Ionized Calcium Ur Specific [place] Urine Creatinine Heparin-induced Plt Ab Coronavirus (PCR) 09/13/20 09/13/20 09/13/20 23:46 Unknown Unknown WBC RBC Hgb Hct RDW Plt Count 135 L Lymph % (Auto) [place] % (Auto) Lymph # (Auto) Seg Neutrophils % Seg Neuts % (Manual) Lymphocytes % (Manual) Seg Neutrophils # Seg Neutrophils # Man Lymphocytes # (Manual) PT INR D-Dimer Heparin Anti-Xa Level Heparin Anti-Xa, Unfract ABG pH POC ABG pCO2 POC ABG pO2 ABG Hemoglobin ABG Oxyhemoglobin ABG Sodium ABG Potassium ABG Chloride ABG Glucose Carboxyhemoglobin Sodium Potassium Chloride Carbon Dioxide BUN 54 H Creatinine 1.6 H Glucose 255 H POC Glucose 263 H Calcium Phosphorus Magnesium Ferritin AST Lactate Dehydrogenase C-Reactive Protein Total Protein Albumin 2.8 L TSH Arterial Blood Glucose Arterial Blood Ionized Calcium Ur Specific [place] Urine Creatinine Heparin-induced Plt Ab Coronavirus (PCR) 09/14/20 09/14/20 09/14/20 05:46 10:53 10:53 WBC RBC Hgb Hct RDW Plt Count Lymph % (Auto) [place] % (Auto) Lymph # (Auto) Seg Neutrophils % Seg Neuts % (Manual) Lymphocytes % (Manual) Seg Neutrophils # Seg Neutrophils # Man Lymphocytes # (Manual) PT INR D-Dimer > 24341 H Heparin Anti-Xa Level Heparin Anti-Xa, Unfract ABG pH POC ABG pCO2 POC ABG pO2 ABG Hemoglobin ABG Oxyhemoglobin ABG Sodium ABG Potassium ABG Chloride ABG Glucose Carboxyhemoglobin Sodium Potassium Chloride Carbon Dioxide BUN 71 H Creatinine 2.8 H D Glucose 167 H POC Glucose 226 H Calcium Phosphorus 4.90 H D Magnesium 2.40 H Ferritin AST Lactate Dehydrogenase C-Reactive Protein 5.40 H Total Protein 5.9 L Albumin 2.7 L TSH Arterial Blood Glucose Arterial Blood Ionized Calcium Ur Specific [place] Urine Creatinine Heparin-induced Plt Ab Coronavirus (PCR) 09/14/20 09/14/20 09/14/20 11:33 13:45 17:29 WBC RBC Hgb Hct RDW Plt Count Lymph % (Auto) [place] % (Auto) Lymph # (Auto) Seg Neutrophils % Seg Neuts % (Manual) Lymphocytes % (Manual) Seg Neutrophils # Seg Neutrophils # Man Lymphocytes # (Manual) PT INR D-Dimer Heparin Anti-Xa Level Heparin Anti-Xa, Unfract ABG pH 7.225 L POC ABG pCO2 60.1 H POC ABG pO2 ABG Hemoglobin ABG Oxyhemoglobin ABG Sodium ABG Potassium 5.2 H ABG Chloride 109.0 H ABG Glucose 205 H Carboxyhemoglobin Sodium Potassium Chloride Carbon Dioxide BUN Creatinine Glucose POC Glucose 166 H 202 H Calcium Phosphorus Magnesium Ferritin AST Lactate Dehydrogenase C-Reactive Protein Total Protein Albumin TSH Arterial Blood Glucose 205 H Arterial Blood Ionized Calcium Ur Specific [place] Urine Creatinine Heparin-induced Plt Ab Coronavirus (PCR) 09/15/20 09/15/20 09/15/20 00:19 03:10 03:10 WBC 13.5 H RBC Hgb Hct RDW Plt Count 77 L Lymph % (Auto) 3.9 L [place] % (Auto) Lymph # (Auto) 0.5 L Seg Neutrophils % 89.9 H Seg Neuts % (Manual) Lymphocytes % (Manual) Seg Neutrophils # 12.1 H Seg Neutrophils # Man Lymphocytes # (Manual) PT INR D-Dimer Heparin Anti-Xa Level Heparin Anti-Xa, Unfract ABG pH POC ABG pCO2 POC ABG pO2 ABG Hemoglobin ABG Oxyhemoglobin ABG Sodium ABG Potassium ABG Chloride ABG Glucose Carboxyhemoglobin Sodium Potassium 5.7 H Chloride 107.7 H Carbon Dioxide 21 L BUN 85 H Creatinine 4.1 H Glucose 166 H POC Glucose 174 H Calcium Phosphorus Magnesium Ferritin AST Lactate Dehydrogenase C-Reactive Protein Total Protein 5.9 L Albumin 2.3 L TSH Arterial Blood Glucose Arterial Blood Ionized Calcium Ur Specific [place] Urine Creatinine Heparin-induced Plt Ab Coronavirus (PCR) 09/15/20 09/15/20 09/15/20 03:10 03:10 05:34 WBC RBC Hgb Hct RDW Plt Count Lymph % (Auto) [place] % (Auto) Lymph # (Auto) Seg Neutrophils % Seg Neuts % (Manual) Lymphocytes % (Manual) Seg Neutrophils # Seg Neutrophils # Man Lymphocytes # (Manual) PT INR D-Dimer > 66688 H Heparin Anti-Xa Level Heparin Anti-Xa, Unfract ABG pH POC ABG pCO2 POC ABG pO2 ABG Hemoglobin ABG Oxyhemoglobin ABG Sodium ABG Potassium ABG Chloride ABG Glucose Carboxyhemoglobin Sodium Potassium Chloride Carbon Dioxide BUN Creatinine Glucose POC Glucose 146 H Calcium Phosphorus 6.50 H D Magnesium 2.40 H Ferritin AST Lactate Dehydrogenase C-Reactive Protein 3.90 H Total Protein Albumin TSH Arterial Blood Glucose Arterial Blood Ionized Calcium Ur Specific [place] Urine Creatinine Heparin-induced Plt Ab Coronavirus (PCR) 09/15/20 09/15/20 09/15/20 06:12 12:30 13:25 WBC RBC Hgb Hct RDW Plt Count Lymph % (Auto) [place] % (Auto) Lymph # (Auto) Seg Neutrophils % Seg Neuts % (Manual) Lymphocytes % (Manual) Seg Neutrophils # Seg Neutrophils # Man Lymphocytes # (Manual) PT INR D-Dimer Heparin Anti-Xa Level Heparin Anti-Xa, Unfract ABG pH 7.178 L POC ABG pCO2 58.7 H POC ABG pO2 65.2 L ABG Hemoglobin ABG Oxyhemoglobin 90.5 L ABG Sodium ABG Potassium 5.1 H ABG Chloride 110.0 H ABG Glucose 173 H Carboxyhemoglobin Sodium Potassium 5.5 H 5.4 H Chloride 108.0 H Carbon Dioxide BUN 87 H 89 H Creatinine 4.3 H 4.2 H Glucose 151 H 180 H POC Glucose Calcium 8.2 L Phosphorus 6.70 H Magnesium Ferritin AST Lactate Dehydrogenase C-Reactive Protein Total Protein Albumin TSH Arterial Blood Glucose 173 H Arterial Blood Ionized Calcium Ur Specific [place] Urine Creatinine Heparin-induced Plt Ab Coronavirus (PCR) 09/15/20 09/15/20 09/15/20 13:33 14:00 14:00 WBC RBC Hgb Hct RDW Plt Count 86 L Lymph % (Auto) [place] % (Auto) Lymph # (Auto) Seg Neutrophils % Seg Neuts % (Manual) Lymphocytes % (Manual) Seg Neutrophils # Seg Neutrophils # Man Lymphocytes # (Manual) PT 18.8 H INR 1.52 H D-Dimer Heparin Anti-Xa Level Heparin Anti-Xa, Unfract ABG pH POC ABG pCO2 POC ABG pO2 ABG Hemoglobin ABG Oxyhemoglobin ABG Sodium ABG Potassium ABG Chloride ABG Glucose Carboxyhemoglobin Sodium Potassium Chloride Carbon Dioxide BUN Creatinine Glucose POC Glucose 146 H Calcium Phosphorus Magnesium Ferritin AST Lactate Dehydrogenase C-Reactive Protein Total Protein Albumin TSH Arterial Blood Glucose Arterial Blood Ionized Calcium Ur Specific [place] Urine Creatinine Heparin-induced Plt Ab Coronavirus (PCR) 09/15/20 09/15/20 09/15/20 18:02 21:10 23:04 WBC RBC Hgb Hct RDW Plt Count Lymph % (Auto) [place] % (Auto) Lymph # (Auto) Seg Neutrophils % Seg Neuts % (Manual) Lymphocytes % (Manual) Seg Neutrophils # Seg Neutrophils # Man Lymphocytes # (Manual) PT INR D-Dimer Heparin Anti-Xa Level 0.78 H Heparin Anti-Xa, Unfract ABG pH POC ABG pCO2 POC ABG pO2 ABG Hemoglobin ABG Oxyhemoglobin ABG Sodium ABG Potassium ABG Chloride ABG Glucose Carboxyhemoglobin Sodium Potassium Chloride Carbon Dioxide BUN Creatinine Glucose POC Glucose 241 H 296 H Calcium Phosphorus Magnesium Ferritin AST Lactate Dehydrogenase C-Reactive Protein Total Protein Albumin TSH Arterial Blood Glucose Arterial Blood Ionized Calcium Ur Specific [place] Urine Creatinine Heparin-induced Plt Ab Coronavirus (PCR) 09/15/20 09/16/20 09/16/20 23:33 02:45 04:00 WBC 22.7 H RBC Hgb Hct RDW Plt Count 105 L Lymph % (Auto) [place] % (Auto) Lymph # (Auto) Seg Neutrophils % Seg Neuts % (Manual) Lymphocytes % (Manual) Seg Neutrophils # Seg Neutrophils # Man Lymphocytes # (Manual) PT INR D-Dimer Heparin Anti-Xa Level Heparin Anti-Xa, Unfract ABG pH 7.171 L POC ABG pCO2 57.1 H POC ABG pO2 144.1 H ABG Hemoglobin ABG Oxyhemoglobin ABG Sodium ABG Potassium 5.0 H ABG Chloride ABG Glucose 273 H Carboxyhemoglobin Sodium Potassium Chloride Carbon Dioxide BUN Creatinine Glucose POC Glucose 298 H Calcium Phosphorus Magnesium Ferritin AST Lactate Dehydrogenase C-Reactive Protein Total Protein Albumin TSH Arterial Blood Glucose 273 H Arterial Blood Ionized Calcium 4.5 L Ur Specific [place] Urine Creatinine Heparin-induced Plt Ab Coronavirus (PCR) 09/16/20 09/16/20 09/16/20 04:20 05:10 11:38 WBC RBC Hgb Hct RDW Plt Count Lymph % (Auto) [place] % (Auto) Lymph # (Auto) Seg Neutrophils % Seg Neuts % (Manual) Lymphocytes % (Manual) Seg Neutrophils # Seg Neutrophils # Man Lymphocytes # (Manual) PT INR D-Dimer Heparin Anti-Xa Level Heparin Anti-Xa, Unfract ABG pH POC ABG pCO2 POC ABG pO2 ABG Hemoglobin ABG Oxyhemoglobin ABG Sodium ABG Potassium ABG Chloride ABG Glucose Carboxyhemoglobin Sodium Potassium 5.4 H Chloride Carbon Dioxide BUN 75 H Creatinine 3.7 H Glucose 265 H POC Glucose 269 H 279 H Calcium Phosphorus Magnesium Ferritin AST 46 H Lactate Dehydrogenase C-Reactive Protein Total Protein 6.2 L Albumin 2.9 L TSH Arterial Blood Glucose Arterial Blood Ionized Calcium Ur Specific [place] Urine Creatinine Heparin-induced Plt Ab Coronavirus (PCR) 09/16/20 09/16/20 09/16/20 13:45 17:21 23:37 WBC RBC Hgb Hct RDW Plt Count Lymph % (Auto) [place] % (Auto) Lymph # (Auto) Seg Neutrophils % Seg Neuts % (Manual) Lymphocytes % (Manual) Seg Neutrophils # Seg Neutrophils # Man Lymphocytes # (Manual) PT INR D-Dimer Heparin Anti-Xa Level Heparin Anti-Xa, Unfract ABG pH 7.156 L POC ABG pCO2 59.8 H POC ABG pO2 48.2 L ABG Hemoglobin ABG Oxyhemoglobin 78.1 L ABG Sodium ABG Potassium 5.2 H ABG Chloride ABG Glucose 302 H Carboxyhemoglobin Sodium Potassium Chloride Carbon Dioxide BUN Creatinine Glucose POC Glucose 285 H 385 H Calcium Phosphorus Magnesium Ferritin AST Lactate Dehydrogenase C-Reactive Protein Total Protein Albumin TSH Arterial Blood Glucose 302 H Arterial Blood Ionized Calcium 4.4 L Ur Specific [place] Urine Creatinine Heparin-induced Plt Ab Coronavirus (PCR) 09/17/20 09/17/20 09/17/20 04:52 04:52 04:52 WBC 19.4 H RBC Hgb Hct RDW 15.5 H Plt Count 91 L Lymph % (Auto) [place] % (Auto) Lymph # (Auto) Seg Neutrophils % Seg Neuts % (Manual) Lymphocytes % (Manual) Seg Neutrophils # Seg Neutrophils # Man Lymphocytes # (Manual) PT INR D-Dimer > 30330 H Heparin Anti-Xa Level Heparin Anti-Xa, Unfract ABG pH POC ABG pCO2 POC ABG pO2 ABG Hemoglobin ABG Oxyhemoglobin ABG Sodium ABG Potassium ABG Chloride ABG Glucose Carboxyhemoglobin Sodium Potassium 5.1 H Chloride Carbon Dioxide BUN 68 H Creatinine 4.1 H Glucose 291 H POC Glucose Calcium 8.3 L Phosphorus 5.60 H Magnesium Ferritin AST Lactate Dehydrogenase 729 H C-Reactive Protein 5.30 H Total Protein Albumin TSH Arterial Blood Glucose Arterial Blood Ionized Calcium Ur Specific [place] Urine Creatinine Heparin-induced Plt Ab Coronavirus (PCR) 09/17/20 09/17/20 09/17/20 04:52 05:20 12:02 WBC RBC Hgb Hct RDW Plt Count Lymph % (Auto) [place] % (Auto) Lymph # (Auto) Seg Neutrophils % Seg Neuts % (Manual) Lymphocytes % (Manual) Seg Neutrophils # Seg Neutrophils # Man Lymphocytes # (Manual) PT INR D-Dimer Heparin Anti-Xa Level Heparin Anti-Xa, Unfract ABG pH POC ABG pCO2 POC ABG pO2 ABG Hemoglobin ABG Oxyhemoglobin ABG Sodium ABG Potassium ABG Chloride ABG Glucose Carboxyhemoglobin Sodium Potassium Chloride Carbon Dioxide BUN Creatinine Glucose POC Glucose 312 H 240 H Calcium Phosphorus Magnesium Ferritin 1323.0 H AST Lactate Dehydrogenase C-Reactive Protein Total Protein Albumin TSH Arterial Blood Glucose Arterial Blood Ionized Calcium Ur Specific [place] Urine Creatinine Heparin-induced Plt Ab Coronavirus (PCR) 09/17/20 09/17/20 09/18/20 17:52 23:19 05:06 WBC RBC Hgb Hct RDW Plt Count Lymph % (Auto) [place] % (Auto) Lymph # (Auto) Seg Neutrophils % Seg Neuts % (Manual) Lymphocytes % (Manual) Seg Neutrophils # Seg Neutrophils # Man Lymphocytes # (Manual) PT INR D-Dimer Heparin Anti-Xa Level Heparin Anti-Xa, Unfract ABG pH POC ABG pCO2 POC ABG pO2 ABG Hemoglobin ABG Oxyhemoglobin ABG Sodium ABG Potassium ABG Chloride ABG Glucose Carboxyhemoglobin Sodium Potassium Chloride Carbon Dioxide BUN Creatinine Glucose POC Glucose 242 H 304 H 233 H Calcium Phosphorus Magnesium Ferritin AST Lactate Dehydrogenase C-Reactive Protein Total Protein Albumin TSH Arterial Blood Glucose Arterial Blood Ionized Calcium Ur Specific [place] Urine Creatinine Heparin-induced Plt Ab Coronavirus (PCR) 09/18/20 09/18/20 09/18/20 05:15 05:15 09:36 WBC 20.4 H RBC 3.51 L Hgb Hct RDW 15.3 H Plt Count 31 L Lymph % (Auto) [place] % (Auto) Lymph # (Auto) Seg Neutrophils % Seg Neuts % (Manual) Lymphocytes % (Manual) Seg Neutrophils # Seg Neutrophils # Man Lymphocytes # (Manual) PT INR D-Dimer Heparin Anti-Xa Level Heparin Anti-Xa, Unfract ABG pH 7.282 L POC ABG pCO2 POC ABG pO2 149.0 H ABG Hemoglobin 10.4 L ABG Oxyhemoglobin ABG Sodium 135.9 L ABG Potassium ABG Chloride ABG Glucose 221 H Carboxyhemoglobin Sodium 135 L Potassium Chloride Carbon Dioxide BUN 57 H Creatinine 4.1 H Glucose 228 H POC Glucose Calcium 7.5 L Phosphorus 5.20 H Magnesium Ferritin AST Lactate Dehydrogenase C-Reactive Protein Total Protein Albumin TSH Arterial Blood Glucose 221 H Arterial Blood Ionized Calcium 4.1 L Ur Specific [place] Urine Creatinine Heparin-induced Plt Ab Coronavirus (PCR) 09/18/20 09/18/20 09/18/20 10:53 11:35 17:10 WBC RBC Hgb Hct RDW Plt Count Lymph % (Auto) [place] % (Auto) Lymph # (Auto) Seg Neutrophils % Seg Neuts % (Manual) Lymphocytes % (Manual) Seg Neutrophils # Seg Neutrophils # Man Lymphocytes # (Manual) PT INR D-Dimer Heparin Anti-Xa Level < 0.10 L Heparin Anti-Xa, Unfract ABG pH 7.200 L POC ABG pCO2 66.8 H POC ABG pO2 38.6 L ABG Hemoglobin ABG Oxyhemoglobin 68.0 L ABG Sodium ABG Potassium 4.9 H ABG Chloride ABG Glucose 266 H Carboxyhemoglobin Sodium Potassium Chloride Carbon Dioxide BUN Creatinine Glucose POC Glucose 238 H Calcium Phosphorus Magnesium Ferritin AST Lactate Dehydrogenase C-Reactive Protein Total Protein Albumin TSH Arterial Blood Glucose 266 H Arterial Blood Ionized Calcium Ur Specific [place] Urine Creatinine Heparin-induced Plt Ab Coronavirus (PCR) 09/18/20 09/18/20 09/18/20 17:54 18:35 23:47 WBC RBC Hgb Hct RDW Plt Count Lymph % (Auto) [place] % (Auto) Lymph # (Auto) Seg Neutrophils % Seg Neuts % (Manual) Lymphocytes % (Manual) Seg Neutrophils # Seg Neutrophils # Man Lymphocytes # (Manual) PT INR D-Dimer Heparin Anti-Xa Level Heparin Anti-Xa, Unfract Positive H ABG pH POC ABG pCO2 POC ABG pO2 ABG Hemoglobin ABG Oxyhemoglobin ABG Sodium ABG Potassium ABG Chloride ABG Glucose Carboxyhemoglobin Sodium Potassium Chloride Carbon Dioxide BUN Creatinine Glucose POC Glucose 241 H 241 H Calcium Phosphorus Magnesium Ferritin AST Lactate Dehydrogenase C-Reactive Protein Total Protein Albumin TSH Arterial Blood Glucose Arterial Blood Ionized Calcium Ur Specific [place] Urine Creatinine Heparin-induced Plt Ab Positive H Coronavirus (PCR) 09/19/20 09/19/20 09/19/20 02:53 05:12 05:12 WBC RBC Hgb Hct RDW Plt Count 27 L Lymph % (Auto) [place] % (Auto) Lymph # (Auto) Seg Neutrophils % Seg Neuts % (Manual) Lymphocytes % (Manual) Seg Neutrophils # Seg Neutrophils # Man Lymphocytes # (Manual) PT INR D-Dimer > 27921 H Heparin Anti-Xa Level Heparin Anti-Xa, Unfract ABG pH 7.151 L POC ABG pCO2 58.1 H POC ABG pO2 ABG Hemoglobin 11.7 L ABG Oxyhemoglobin ABG Sodium ABG Potassium 4.7 H ABG Chloride ABG Glucose 225 H Carboxyhemoglobin Sodium Potassium Chloride Carbon Dioxide BUN Creatinine Glucose POC Glucose Calcium Phosphorus Magnesium Ferritin AST Lactate Dehydrogenase C-Reactive Protein Total Protein Albumin TSH Arterial Blood Glucose 225 H Arterial Blood Ionized Calcium Ur Specific [place] Urine Creatinine Heparin-induced Plt Ab Coronavirus (PCR) 09/19/20 09/19/20 09/19/20 05:12 05:12 05:27 WBC RBC Hgb Hct RDW Plt Count Lymph % (Auto) [place] % (Auto) Lymph # (Auto) Seg Neutrophils % Seg Neuts % (Manual) Lymphocytes % (Manual) Seg Neutrophils # Seg Neutrophils # Man Lymphocytes # (Manual) PT INR D-Dimer Heparin Anti-Xa Level Heparin Anti-Xa, Unfract ABG pH POC ABG pCO2 POC ABG pO2 ABG Hemoglobin ABG Oxyhemoglobin ABG Sodium ABG Potassium ABG Chloride ABG Glucose Carboxyhemoglobin Sodium Potassium Chloride Carbon Dioxide BUN Creatinine Glucose POC Glucose 220 H Calcium Phosphorus Magnesium Ferritin > 2000.0 H AST Lactate Dehydrogenase 1894 H C-Reactive Protein 9.20 H Total Protein Albumin TSH Arterial Blood Glucose Arterial Blood Ionized Calcium Ur Specific [place] Urine Creatinine Heparin-induced Plt Ab Coronavirus (PCR) 09/19/20 09/19/20 09/19/20 11:47 12:10 17:34 WBC RBC Hgb Hct RDW Plt Count Lymph % (Auto) [place] % (Auto) Lymph # (Auto) Seg Neutrophils % Seg Neuts % (Manual) Lymphocytes % (Manual) Seg Neutrophils # Seg Neutrophils # Man Lymphocytes # (Manual) PT INR D-Dimer Heparin Anti-Xa Level Heparin Anti-Xa, Unfract ABG pH POC ABG pCO2 POC ABG pO2 ABG Hemoglobin ABG Oxyhemoglobin ABG Sodium ABG Potassium ABG Chloride ABG Glucose Carboxyhemoglobin Sodium Potassium 5.2 H Chloride Carbon Dioxide 21 L BUN 73 H Creatinine 4.6 H Glucose 171 H POC Glucose 158 H 131 H Calcium 8.0 L Phosphorus Magnesium Ferritin AST Lactate Dehydrogenase C-Reactive Protein Total Protein Albumin TSH Arterial Blood Glucose Arterial Blood Ionized Calcium Ur Specific [place] Urine Creatinine Heparin-induced Plt Ab Coronavirus (PCR) 09/19/20 09/20/20 09/20/20 23:59 03:01 05:35 WBC RBC Hgb Hct RDW Plt Count Lymph % (Auto) [place] % (Auto) Lymph # (Auto) Seg Neutrophils % Seg Neuts % (Manual) Lymphocytes % (Manual) Seg Neutrophils # Seg Neutrophils # Man Lymphocytes # (Manual) PT INR D-Dimer Heparin Anti-Xa Level Heparin Anti-Xa, Unfract ABG pH 7.186 L POC ABG pCO2 54.5 H POC ABG pO2 118.4 H ABG Hemoglobin 10.8 L ABG Oxyhemoglobin ABG Sodium ABG Potassium 5.1 H ABG Chloride ABG Glucose 193 H Carboxyhemoglobin Sodium Potassium Chloride Carbon Dioxide BUN Creatinine Glucose POC Glucose 147 H 188 H Calcium Phosphorus Magnesium Ferritin AST Lactate Dehydrogenase C-Reactive Protein Total Protein Albumin TSH Arterial Blood Glucose 193 H Arterial Blood Ionized Calcium 4.4 L Ur Specific [place] Urine Creatinine Heparin-induced Plt Ab Coronavirus (PCR) 09/20/20 09/20/20 09/20/20 08:00 08:00 11:36 WBC 25.1 H RBC 3.22 L Hgb 10.0 L Hct RDW 15.5 H Plt Count Lymph % (Auto) [place] % (Auto) Lymph # (Auto) Seg Neutrophils % Seg Neuts % (Manual) Lymphocytes % (Manual) Seg Neutrophils # Seg Neutrophils # Man Lymphocytes # (Manual) PT INR D-Dimer Heparin Anti-Xa Level Heparin Anti-Xa, Unfract ABG pH POC ABG pCO2 POC ABG pO2 ABG Hemoglobin ABG Oxyhemoglobin ABG Sodium ABG Potassium ABG Chloride ABG Glucose Carboxyhemoglobin Sodium Potassium 5.4 H Chloride Carbon Dioxide BUN 98 H Creatinine 5.9 H Glucose 184 H POC Glucose 158 H Calcium 8.1 L Phosphorus Magnesium Ferritin AST Lactate Dehydrogenase C-Reactive Protein Total Protein Albumin TSH Arterial Blood Glucose Arterial Blood Ionized Calcium Ur Specific [place] Urine Creatinine Heparin-induced Plt Ab Coronavirus (PCR) 09/20/20 09/20/20 09/21/20 17:46 17:48 01:08 WBC RBC Hgb Hct RDW Plt Count Lymph % (Auto) [place] % (Auto) Lymph # (Auto) Seg Neutrophils % Seg Neuts % (Manual) Lymphocytes % (Manual) Seg Neutrophils # Seg Neutrophils # Man Lymphocytes # (Manual) PT INR D-Dimer Heparin Anti-Xa Level Heparin Anti-Xa, Unfract ABG pH POC ABG pCO2 POC ABG pO2 ABG Hemoglobin ABG Oxyhemoglobin ABG Sodium ABG Potassium ABG Chloride ABG Glucose Carboxyhemoglobin Sodium Potassium Chloride Carbon Dioxide BUN Creatinine Glucose POC Glucose 24 L 156 H 158 H Calcium Phosphorus Magnesium Ferritin AST Lactate Dehydrogenase C-Reactive Protein Total Protein Albumin TSH Arterial Blood Glucose Arterial Blood Ionized Calcium Ur Specific [place] Urine Creatinine Heparin-induced Plt Ab Coronavirus (PCR) 09/21/20 09/21/20 09/21/20 03:10 04:45 04:45 WBC 33.2 H RBC 3.20 L Hgb 9.9 L Hct RDW Plt Count 14 L* Lymph % (Auto) [place] % (Auto) Lymph # (Auto) Seg Neutrophils % Seg Neuts % (Manual) Lymphocytes % (Manual) Seg Neutrophils # Seg Neutrophils # Man Lymphocytes # (Manual) PT INR D-Dimer Heparin Anti-Xa Level Heparin Anti-Xa, Unfract ABG pH 7.201 L POC ABG pCO2 POC ABG pO2 180.8 H ABG Hemoglobin 10.6 L ABG Oxyhemoglobin ABG Sodium ABG Potassium 4.9 H ABG Chloride ABG Glucose 130 H Carboxyhemoglobin Sodium Potassium 5.3 H Chloride Carbon Dioxide BUN 103 H Creatinine 6.3 H Glucose 129 H POC Glucose Calcium 8.3 L Phosphorus Magnesium Ferritin AST Lactate Dehydrogenase C-Reactive Protein Total Protein Albumin TSH Arterial Blood Glucose 130 H Arterial Blood Ionized Calcium 4.4 L Ur Specific [place] Urine Creatinine Heparin-induced Plt Ab Coronavirus (PCR) 09/21/20 09/21/20 09/21/20 12:11 17:14 23:35 WBC RBC Hgb Hct RDW Plt Count Lymph % (Auto) [place] % (Auto) Lymph # (Auto) Seg Neutrophils % Seg Neuts % (Manual) Lymphocytes % (Manual) Seg Neutrophils # Seg Neutrophils # Man Lymphocytes # (Manual) PT INR D-Dimer Heparin Anti-Xa Level Heparin Anti-Xa, Unfract ABG pH POC ABG pCO2 POC ABG pO2 ABG Hemoglobin ABG Oxyhemoglobin ABG Sodium ABG Potassium ABG Chloride ABG Glucose Carboxyhemoglobin Sodium Potassium Chloride Carbon Dioxide BUN Creatinine Glucose POC Glucose 123 H 154 H < 10 L Calcium Phosphorus Magnesium Ferritin AST Lactate Dehydrogenase C-Reactive Protein Total Protein Albumin TSH Arterial Blood Glucose Arterial Blood Ionized Calcium Ur Specific [place] Urine Creatinine Heparin-induced Plt Ab Coronavirus (PCR) 09/22/20 09/22/20 09/22/20 00:01 00:15 01:48 WBC RBC Hgb Hct RDW Plt Count Lymph % (Auto) [place] % (Auto) Lymph # (Auto) Seg Neutrophils % Seg Neuts % (Manual) Lymphocytes % (Manual) Seg Neutrophils # Seg Neutrophils # Man Lymphocytes # (Manual) PT INR D-Dimer Heparin Anti-Xa Level Heparin Anti-Xa, Unfract ABG pH 7.051 L POC ABG pCO2 55.4 H POC ABG pO2 ABG Hemoglobin 9.9 L ABG Oxyhemoglobin 93.0 L ABG Sodium 135.2 L ABG Potassium 5.6 H ABG Chloride ABG Glucose 129 H Carboxyhemoglobin Sodium Potassium Chloride Carbon Dioxide BUN Creatinine Glucose POC Glucose 10 L 212 H Calcium Phosphorus Magnesium Ferritin AST Lactate Dehydrogenase C-Reactive Protein Total Protein Albumin TSH Arterial Blood Glucose 129 H Arterial Blood Ionized Calcium 4.2 L Ur Specific [place] Urine Creatinine Heparin-induced Plt Ab Coronavirus (PCR) 09/22/20 09/22/20 09/22/20 04:45 04:45 05:35 WBC 24.1 H RBC 3.00 L Hgb 9.5 L Hct 29.0 L RDW 15.7 H Plt Count 24 L Lymph % (Auto) [place] % (Auto) Lymph # (Auto) Seg Neutrophils % Seg Neuts % (Manual) Lymphocytes % (Manual) Seg Neutrophils # Seg Neutrophils # Man Lymphocytes # (Manual) PT INR D-Dimer Heparin Anti-Xa Level Heparin Anti-Xa, Unfract ABG pH POC ABG pCO2 POC ABG pO2 ABG Hemoglobin ABG Oxyhemoglobin ABG Sodium ABG Potassium ABG Chloride ABG Glucose Carboxyhemoglobin Sodium Potassium 5.7 H Chloride Carbon Dioxide 17 L BUN 83 H Creatinine 5.7 H Glucose 119 H POC Glucose < 10 L Calcium 8.1 L Phosphorus Magnesium Ferritin AST Lactate Dehydrogenase C-Reactive Protein Total Protein Albumin TSH Arterial Blood Glucose Arterial Blood Ionized Calcium Ur Specific [place] Urine Creatinine Heparin-induced Plt Ab Coronavirus (PCR) 09/22/20 09/22/20 11:50 11:56 WBC RBC Hgb Hct RDW Plt Count Lymph % (Auto) [place] % (Auto) Lymph # (Auto) Seg Neutrophils % Seg Neuts % (Manual) Lymphocytes % (Manual) Seg Neutrophils # Seg Neutrophils # Man Lymphocytes # (Manual) PT INR D-Dimer Heparin Anti-Xa Level Heparin Anti-Xa, Unfract ABG pH POC ABG pCO2 POC ABG pO2 ABG Hemoglobin ABG Oxyhemoglobin ABG Sodium ABG Potassium ABG Chloride ABG Glucose Carboxyhemoglobin Sodium Potassium Chloride Carbon Dioxide BUN Creatinine Glucose POC Glucose < 10 L 136 H Calcium Phosphorus Magnesium Ferritin AST Lactate Dehydrogenase C-Reactive Protein Total Protein Albumin TSH Arterial Blood Glucose Arterial Blood Ionized Calcium Ur Specific [place] Urine Creatinine Heparin-induced Plt Ab Coronavirus (PCR) Allied health notes reviewed: nursing
[2020-09-22] MEDS: MEROPENEM/NS 1 GRAM/100 ML 1 GRAM/100 ML BAG IV SCH (15:37)
[2020-09-22] MEDS ORDERED: methylPREDNISolone Sod Succinate 125 MG/2 ML INJ IV SCH (22:00)
[2020-09-23] MEDS ORDERED: DEXTROSE 50% IN WATER (25GM) 50 ML SYRINGE IV ONE (00:13)
[2020-09-23] MEDS ORDERED: DEXTROSE 50% IN WATER (25GM) 50 ML SYRINGE IV PRN (00:25)
[2020-09-23] MEDS: INSULIN LISPRO 100 UNIT/ML SUB-Q SCH (00:26)
[2020-09-23] MEDS ORDERED: DEXTROSE 10% IN WATER 1,000 ML IV SCH (01:00)
[2020-09-23 01:13] VITALS: BP 102/17
[2020-09-23] MEDS ORDERED: SODIUM POLYSTYRENE 15 GM/60 ML ORAL LIQD PO ONE (02:25)
[2020-09-23] MEDS ORDERED: CALCIUM GLUCONATE 2,000 MG in SODIUM CHLORIDE 0.9% 100 ML IV ONE (02:26)
[2020-09-23] MEDS: fentaNYL DRIP Premix 2,000 MCG/100 ML BAG IV SCH (02:48)
[2020-09-23] MEDS: NORepinephrine/NS 8 MG-250 ML 8 MG/250 ML INFUS..BTL IV SCH (02:48)
[2020-09-23] MEDS: VASOPRESSIN 20 UNIT in SODIUM CHLORIDE 0.9% 100 ML IV SCH (03:37)
--- NOTE | 2020-09-23 05:59 | Event Note ---
Date: 09/23/20 ROSENDO MORENO called on 75-year-old -[place] female who has been on admission for acute hypoxic respiratory failure due to Covid pneumonia, acute metabolic encephalopathy. Resuscitative measures were commenced according to ACLS protocol. She had multiple rounds of epinephrine, sodium bicarb, calcium gluconate, sodium bicarb. She was also shocked with 360 J when she went into V. fib. She had a dose of 150 mg of amiodarone. Blood glucose was 14 and patient had multiple rounds of D50. All resuscitative measures however proved futile. On exam: Pupils were fixed and dilated. Chest: No breath sounds Cardiovascular exam: No heart sounds, no peripheral pulses Abdomen: Obese Extremities: Cold and clammy Central nervous system: No reflexes Patient pronounced at 5:04 AM on September 23, 2020. Daughter was promptly notified over the phone.
--- NOTE | 2020-09-23 08:50 | Death Summary ---
Summary - Providers Date of service: 09/23/20 Consults: 09/10/20 14:39 Consult to Physician [CONS] Routine Comment: Consulting Provider: BURTON GODINEZ Physician Instructions: Reason For Exam: Acute respiratory failure 09/11/20 08:47 Consult to Dietitian/Nutrition [CONS] Routine Physician Instructions: Reason For Exam: Reason for Consult: Write/Manage Tube Feeding 09/11/20 11:28 Consult to Physician [CONS] Routine Comment: Consulting Provider: FREDDIE DC Physician Instructions: Reason For Exam: covid (+) 09/13/20 15:49 Consult to Dietitian/Nutrition [CONS] Routine Physician Instructions: Reason For Exam: Reason for Consult: Write/Manage Tube Feeding 09/14/20 13:04 Consult to Physician [CONS] Routine Comment: spoke to dr. leon/ genia Consulting Provider: BURTON GODINEZ Physician Instructions: Reason For Exam: worsening nicolasa 09/15/20 07:13 Consult to Physician [CONS] Routine Comment: dr. jeffers came and see the patient/ genia Consulting Provider: CELSA JEFFERS Physician Instructions: Reason For Exam: NICOLASA 09/15/20 12:22 Consult to Wound/ET Nurse [CONS] Stat Reason For Exam: wound eval face nose and chin 09/22/20 13:47 Consult to Physician [CONS] Routine Comment: left mess./ genia Consulting Provider: DANIS BAZAN Physician Instructions: Reason For Exam: Severe thrombocytopenia Attending: PELON GALEANA - summary Date of admission: 09/08/20 20:23 Date of : 09/23/20 Disposition: This 72-year-old female with HTN, DM, OHS, OA presents the emergency department on 09/08 with generalized weakness, loss of appetite, dry cough, loss of sense of smell, smell and taste, shortness of breath, malaise, decreased exercise tolerance over the past 3 days with progressive worsening symptoms. Patient's daughter provided additional history and stated patient's blood glucose level was being checked and the patient "threw back her head and passed out". EMS was notified and upon arrival patient was found to be in distress transported to [facility] Patient was evaluated emergency department and had a pulse ox on room air of 82% consistent with acute hypoxic respiratory failure, CXR showed bilateral pneumonia, NICOLASA with ATN SSO to COVID-19 infection. Patient was admitted to the medical floor initiated COVID-19 protocol as well as pneumonia protocol. The patient was admitted with diagnosis of COVID-19 pneumonia, sepsis, acute hypoxic respiratory failure, NICOLASA Hospital course: 09/10: Patient was intubated by ED physician and transferred to the ICU. 09/11: Infectious disease was consulted today, patient was placed on vasopressors due to hypotension despite receiving 1 L IV fluid, Lantus started, bilateral lower extremity Doppler ultrasound ordered, A-line and CVL placed. Late in the evening patient was exhibiting sinus bradycardia, EKG ordered along with stat CMP which showed NICOLASA. Stat ABG ordered which showed elevated PaO2 at 146 otherwise unremarkable on 100% FiO2. 09/12 bradycardia overnight requiring atropine x 1 and dopamine drip 09/13 tamia overnight 09/14 PRONED 16 H over the last day 09/16: Patient was proned overnight, per ID afebrile reculture and start cefepime and vancomycin, patient received hemodialysis today. Acidosis noted on ABG, vent changes per CCM and HD requested, 2 A of bicarb given. Has hyperkalemia today which has been treated. 09/17: again proned, slight hyperkalemia today. HD per nephro. Remains on sedation and vasopressor suppoprt which was increased with HD yesterday. 09/18: Temp 101.3 today, WBC remains elevated. Patient proned today. HD tx per nephrology .Removed 1.5 liters yesterday. Plt also 30K today. D/c heparin, hit panel ordered. holding off on argatroban after discussion with pellet press operator. Patient may have pulmonary hemorrhage as bloody secretions being suctioned from ETT. 09/19/2020 patient remains critically ill intubated sedated on pressors. Plan for hemodialysis tomorrow. Spoke with nurse pellet press operator no new changes over p.m. spoke with daughter Vikas she had already spoken to Dr. Monge and all questions and concerns were answered patient had no other questions for me 09/20/2020. Patient remains intubated critically ill. Tolerated hemodialysis today. Patient unable to be weaned from pressors no new events overnight. Nose remains extremely poor. 09/21/2020. Patient currently on mechanical ventilation AC mode rate of 30, tidal volume 450, FiO2 80% and PEEP of 20. Patient currently with sedation of fentanyl, propofol and Versed drips. Maintain pressors for MAP > 65. Patient with Levophed and with vasopressin ordered. Continue antimicrobials of cefepime and fluconazole per ID recommendations. 09/22/2020. Patient with extremely poor prognosis. Patient currently with AC mode rate of 30, tidal volume 450, FiO2 100% and PEEP of 18. Patient unfortunately currently only with saturations of mid 80% with these maximal vent settings. Patient still with oliguric acute kidney injury secondary to ATN/sepsis. Patient with no evidence of renal recovery at this time. Patient only tolerated 30 minutes of dialysis on 09/20/2020. Patient unlikely to tolerate other attempts at hemodialysis given the septic shock/hypotension/pressors. Patient currently on vasopressin, Hardy-Synephrine and Levophed. Other complications overnight included increased residuals of 700 and therefore tube feeding was stopped. Patient currently on sedation of propofol and Versed. I had a long discussion with the daughter Vikas regarding extremely poor prognosis. Daughter desires full code and no wishes with DNR. Patient with severe/critical Covid 19 pneumonia and subsequent ARDS. Continue higher dose steroids, pressors as noted above, and broad-spectrum antibiotics per ID recommendations. 09/23/2020. ROSENDO MAYER called on 75-year-old -Luxembour[place] female who has been on admission for acute hypoxic respiratory failure due to Covid pneumonia, acute metabolic encephalopathy. Resuscitative measures were commenced according to ACLS protocol. She had multiple rounds of epinephrine, sodium bicarb, calcium gluconate, sodium bicarb. She was also shocked with 360 J when she went into V. fib. She had a dose of 150 mg of amiodarone. Blood glucose was 14 and patient had multiple rounds of D50. All resuscitative measures however proved futile. On exam: Pupils were fixed and dilated. Chest: No breath sounds Cardiovascular exam: No heart sounds, no peripheral pulses Abdomen: Obese Extremities: Cold and clammy Central nervous system: No reflexes Patient pronounced at 5:04 AM on September 23, 2020. Daughter was promptly notified over the phone. Discharge diagnosis: Cardiopulmonary arrest, acute hypoxic respiratory failure, sepsis, COVID-19 pneumonia summary time 35 minutes
--- NOTE | 2020-09-23 13:13 | Hem/Onc Consultation ---
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, pos NICOLE argatroban not started because bloody pulm secretions in ETT hypotension, hypoxia, high vent and pressor requirement plt transfusion yesterday; plt 14-->24 today starting another steroid pulse and argatroban discussed all with pt's ICU nurse DATA REVIEWED BELOW IMP: Recent [id number] pneumonia HIT without known clotting, with hypotension and hypoxia recent steroid pulse could have helped mitigate HIT doing very badly-->unlikley to survive PLAN: another steroid pulse request low dose argatroban Laboratory Last Values WBC 24.1 K/mm3 (4.5-11.0) H 09/22/20 04:45 Hgb 9.5 gm/dl (10.1-14.3) L 09/22/20 04:45 Hct 29.0 % (30.3-42.9) L 09/22/20 04:45 Plt Count 24 K/mm3 (140-440) L 09/22/20 04:45 PT 18.8 Sec. (12.2-14.9) H 09/15/20 14:00 INR 1.52 (0.87-1.13) H 09/15/20 14:00 APTT 32.7 Sec. (24.2-36.6) 09/15/20 14:00 D-Dimer > [id number] ng/mlDDU (0-234) H 09/19/20 05:12 Heparin Anti-Xa Level < 0.10 U.I./ml (0.3-0.7) L 09/18/20 10:53 Heparin Anti-Xa, Unfract Positive (Negative) H 09/18/20 18:35 Lactate Dehydrogenase 1894 units/L (91-180) H 09/19/20 05:12 Heparin-induced Plt Ab Positive (Negative) H 09/18/20 18:35 UF Heparin High Dose 0 % Release 09/18/20 18:35 NICOLE UFH Low Dose 0.1 93 % Release 09/18/20 18:35 NICOLE UFH Low Dose 0.5 97 % Release 09/18/20 18:35 Coronavirus (PCR) Positive (Negative) A 09/09/20 09:00 Antibody Screen Negative 09/21/20 09:15 Past History Past Medical History: diabetes, hypertension, other (See HPI) Medications and Allergies Allergies Allergy/AdvReac Type Severity Reaction Status Date / Time heparin Allergy Severe HIT Verified 09/22/20 11:59 lisinopril Allergy Severe Angioedema Verified 09/08/20 16:33 Home Medications Medication Instructions Recorded Confirmed Last Taken Type Losartan 100 mg PO DAILY 09/09/20 09/09/20 09/08/20 08:00 History Metformin HCl 500 mg PO BID 09/09/20 09/09/20 09/08/20 History 500 carvediloL 3.125 mg PO BID 09/09/20 09/09/20 09/08/20 History glipiZIDE 10 mg PO AC 09/09/20 09/09/20 09/08/20 08:00 History Active Meds: Active Medications Acetaminophen (Acetaminophen 325 Mg Tab) 650 mg PO Q4H PRN PRN Reason: Pain MILD(1-3)/Fever >100.5/CORTEZ Last Admin: 09/22/20 19:19 Dose: 650 mg Documented by: Albuterol (Albuterol 2.5 Mg/3 Ml Nebu) 2.5 mg IH Q4HRT PRN PRN Reason: Shortness Of Breath Albuterol/Ipratropium (Ipratropium/Albuterol Sulfate 3 Ml Ampul.Neb) 1 ampul IH BID [facility] Last Admin: 09/22/20 22:28 Dose: Not Given Documented by: Lipase/Protease/Amylase (Lipase 10,500/Protease 25,000/Amylase 43,750 (Units) Dr Issa) 1 each FEEDTUBE PRN PRN PRN Reason: For Clogged Feeding Tube Ascorbic Acid (Ascorbic Acid 500 Mg Tab) 500 mg PO BID [facility] Last Admin: 09/22/20 21:25 Dose: 500 mg Documented by: Cholecalciferol (Cholecalciferol (Vit D3) 1000 Unit (25 Mcg) Tab) 1,000 unit PO QDAY [facility] Last Admin: 09/22/20 09:02 Dose: 1,000 unit Documented by: Dextrose (Dextrose 50% In Water (25gm) 50 Ml Syringe) 0 ml IV Q30MIN PRN; Protocol PRN Reason: Hypoglycemia Famotidine (Famotidine 20 Mg/2 Ml Inj) 10 mg IV BID ISIAH Last Admin: 09/22/20 21:25 Dose: 10 mg Documented by: Fentanyl (Fentanyl 100 Mcg/2 Ml Inj) 50 mcg IV Q10MIN PRN PRN Reason: ANALGESIA Guaifenesin (Guaifenesin Dm 200/20 Mg Oral Liqd 10 Ml) 10 ml PO Q4H PRN PRN Reason: Cough Last Admin: 09/10/20 05:14 Dose: 10 ml Documented by: Hydralazine HCl (Hydralazine 20 Mg/1 Ml Inj) 10 mg IV Q4H PRN PRN Reason: Hypertension Fentanyl Citrate (Fentanyl Drip Premix) 2,000 mcg in 100 mls @ 7.45 mls/hr IV TITR ISIAH; Protocol Last Admin: 09/23/20 02:48 Dose: 4 mcg/kg/hr, 29.8 mls/hr Documented by: Vasopressin 20 unit/ Sodium (Chloride) 101 mls @ 9.09 mls/hr IV TITR ISIAH; Protocol Last Admin: 09/23/20 03:37 Dose: 0.03 units/min, 9.09 mls/hr Documented by: Midazolam HCl 100 mg/ Sodium (Chloride) 100 mls @ 1 mls/hr IV TITR ISIAH; Protocol Last Admin: 09/22/20 20:06 Dose: 4 mg/hr, 4 mls/hr Documented by: Propofol (Diprivan 10 Mg/Ml) 1,000 mg in 100 mls @ 4.47 mls/hr IV TITR ISIAH; Protocol Last Admin: 09/23/20 01:31 Dose: 50 mcg/kg/min, 44.7 mls/hr Documented by: Fluconazole (Diflucan) 200 mg in 100 mls @ 100 mls/hr IV Q24H ISIAH Last Admin: 09/22/20 13:19 Dose: 100 mls/hr Documented by: NORepinephrine/NS 8 MG-250 ML (Norepinephrine/Ns 8 Mg-250 Ml (Double Conc)) 8 mg in 250 mls @ 3.75 mls/hr IV TITRATE ISIAH; Protocol Last Admin: 09/23/20 02:48 Dose: 30 mcg/min, 56.25 mls/hr Documented by: MEROPENEM/NS 1 GRAM/100 ML (Merrem/Ns 1 Gram/100 Ml) 1 gram in 100 mls @ 100 mls/hr IV Q24H [facility]; Protocol Last Admin: 09/22/20 15:37 Dose: 100 mls/hr Documented by: Phenylephrine HCl 100 mg/ (Sodium Chloride) 100 mls @ 3 mls/hr IV TITR [facility]; Protocol Last Admin: 09/22/20 20:06 Dose: 50 mcg/min, 3 mls/hr Documented by: Sodium Chloride (Nacl 0.9%) 100 mls @ 999 mls/hr IV NABEEL PRN PRN Reason: Hypotension Dextrose (D10w) 1,000 mls @ 42 mls/hr IV DIRECT [facility] Last Admin: 09/23/20 00:42 Dose: 42 mls/hr Documented by: Insulin Human Lispro (Insulin Lispro 100 Unit/Ml) 0 unit SUB-Q Q6HR [facility]; Protocol Last Admin: 09/23/20 00:26 Dose: Not Given Documented by: Methylprednisolone Sodium Succinate (Methylprednisolone Sod Succinate 125 Mg/2 Ml Inj) 125 mg IV Q8HR [facility] Last Admin: 09/22/20 22:27 Dose: 125 mg Documented by: Metoclopramide HCl (Metoclopramide 10 Mg/2 Ml Inj) 5 mg IV Q8H [facility] Last Admin: 09/22/20 20:06 Dose: 5 mg Documented by: Midazolam HCl (Midazolam 2 Mg/2 Ml Inj) 2 mg IV Q10MIN PRN PRN Reason: Sedation Last Admin: 09/21/20 11:46 Dose: 2 mg Documented by: Senna/Docusate Sodium (Sennosides/Docusate Sodium 8.6/50 Mg Tab) 2 tab PO BID [facility] Last Admin: 09/22/20 21:25 Dose: 2 tab Documented by: Simple Syrup (Simple Syrup 15 Ml) 15 ml FEEDTUBE PRN PRN PRN Reason: Hypoglycemia Simple Syrup (Simple Syrup 15 Ml) 30 ml FEEDTUBE PRN PRN PRN Reason: Hypoglycemia Sodium Bicarbonate (Sodium Bicarbonate 325 Mg Tab) 325 mg FEEDTUBE PRN PRN PRN Reason: For Clogged Feeding Tube Sodium Chloride (Sodium Chloride 0.9% 10 Ml Flush Syringe) 10 ml IV BID [facility] Last Admin: 09/22/20 21:26 Dose: 10 ml Documented by: Sodium Chloride (Sodium Chloride 0.9% 10 Ml Flush Syringe) 10 ml IV PRN PRN PRN Reason: LINE FLUSH Zinc Sulfate (Zinc Sulfate 220 Mg Cap) 220 mg PO BID ISIAH Last Admin: 09/22/20 21:25 Dose: 220 mg Documented by: Exam - Constitutional Vitals: Last Vital Signs Temp 100.4 F H 09/23/20 03:29 Pulse 97 H 09/23/20 04:01 Resp 30 H 09/23/20 04:01 BP 102/17 09/23/20 04:01 Pulse Ox 5 L 09/23/20 06:36 Results - Labs lab Results: Laboratory Results - last 24 hr 09/21/20 09/22/20 09/22/20 09:15 17:40 23:07 FiO2 Sodium Potassium Chloride Carbon Dioxide Anion Gap BUN Creatinine Estimated GFR BUN/Creatinine Ratio Glucose POC Glucose 115 H < 10 L Calcium Blood Type O POSITIVE Antibody Screen Negative 09/23/20 09/23/20 09/23/20 00:09 00:12 00:34 FiO2 Sodium Potassium Chloride Carbon Dioxide Anion Gap BUN Creatinine Estimated GFR BUN/Creatinine Ratio Glucose POC Glucose 20 L 23 L 160 H Calcium Blood Type Antibody Screen 09/23/20 09/23/20 09/23/20 00:35 00:39 05:00 FiO2 100 Sodium 135 L Potassium 6.4 H* Chloride 96.1 L Carbon Dioxide 10 L D Anion Gap 35 BUN 75 H Creatinine 5.6 H Estimated GFR 9 BUN/Creatinine Ratio 13 Glucose 111 H POC Glucose 14 L Calcium 7.0 L Blood Type Antibody Screen
[2020-09-23] MEDS ORDERED: DEXTROSE 50% IN WATER (25GM) 50 ML VIAL IV ONE (16:12)
[2020-09-23] MEDS ORDERED: EPINEPHrine 1 MG/10 ML SYRINGE ONE ×2 (16:12)
[2020-09-23] MEDS ORDERED: SODIUM BICARB 8.4% 50 MEQ/50 ML SYRINGE IV ONE (16:12)
[2020-09-23] MEDS ORDERED: CALCIUM CHLORIDE 1,000 MG/10 ML SYRINGE IV ONE (16:12)
[2020-09-23] MEDS ORDERED: ATROPINE 0.1% (1 MG/10 ML) CARDIAC SYRINGE ONE (16:12)
[2020-09-23] MEDS ORDERED: AMIODARONE 150 MG/3 ML INJ IV ONE (16:12)
[2020-09-23] MEDS ORDERED: DOPamine/D5W 800 MG/250 ML DRIP IV ONE (16:12)
== END 2020-09-23 05:05 | DRG 870 ==
LOC: ED 15:46 → 3A 20:23 → CC1 09-10 17:23
PROVIDERS: ADMIT Internal Medicine; ATTEND Hospitalist
PROC: 4A033R1 Measurement of Arterial Saturation, Peripheral, Percutaneous Approach (ICD-10-PCS; 2020-09-10)
PROC: 5A09357 Assistance with Respiratory Ventilation, Less than 24 Consecutive Hours, Continuous Positive Airway Pressure (ICD-10-PCS; 2020-09-10)
PROC: 03HY32Z Insertion of Monitoring Device into Upper Artery, Percutaneous Approach (ICD-10-PCS; principal; 2020-09-11)
PROC: 0BH17EZ Insertion of Endotracheal Airway into Trachea, Via Natural or Artificial Opening (ICD-10-PCS; 2020-09-11)
PROC: 5A1955Z Respiratory Ventilation, Greater than 96 Consecutive Hours (ICD-10-PCS; 2020-09-11)
PROC: 02HV33Z Insertion of Infusion Device into Superior Vena Cava, Percutaneous Approach (ICD-10-PCS; 2020-09-11)
PROC: B548ZZA Ultrasonography of Superior Vena Cava, Guidance (ICD-10-PCS; 2020-09-11)
PROC: XW033E5 Introduction of Remdesivir Anti-infective into Peripheral Vein, Percutaneous Approach, New Technology Group 5 (ICD-10-PCS; 2020-09-12)
PROC: XW033H5 Introduction of Tocilizumab into Peripheral Vein, Percutaneous Approach, New Technology Group 5 (ICD-10-PCS; 2020-09-12)
PROC: 5A1D70Z Performance of Urinary Filtration, Intermittent, Less than 6 Hours Per Day (ICD-10-PCS; 2020-09-15)
PROC: 5A1D70Z Performance of Urinary Filtration, Intermittent, Less than 6 Hours Per Day (ICD-10-PCS; 2020-09-16)
PROC: 5A1D70Z Performance of Urinary Filtration, Intermittent, Less than 6 Hours Per Day (ICD-10-PCS; 2020-09-17)
PROC: 5A1D70Z Performance of Urinary Filtration, Intermittent, Less than 6 Hours Per Day (ICD-10-PCS; 2020-09-18)
PROC: 5A1D70Z Performance of Urinary Filtration, Intermittent, Less than 6 Hours Per Day (ICD-10-PCS; 2020-09-20)
PROC: 30233R1 Transfusion of Nonautologous Platelets into Peripheral Vein, Percutaneous Approach (ICD-10-PCS; 2020-09-21)
PROC: 5A1D70Z Performance of Urinary Filtration, Intermittent, Less than 6 Hours Per Day (ICD-10-PCS; 2020-09-21)
PROC: 5A1D70Z Performance of Urinary Filtration, Intermittent, Less than 6 Hours Per Day (ICD-10-PCS; 2020-09-22)
DX: A41.9 Sepsis, unspecified organism (principal); J96.01 Acute respiratory failure with hypoxia; U07.1 COVID-19; J12.82 Pneumonia due to coronavirus disease 2019; G93.41 Metabolic encephalopathy; N17.0 Acute kidney failure with tubular necrosis; E66.2 Morbid (severe) obesity with alveolar hypoventilation; D61.818 Other pancytopenia; I10 Essential (primary) hypertension; Z88.8 Allergy status to other drugs, medicaments and biological substances; E11.65 Type 2 diabetes mellitus with hyperglycemia; D69.6 Thrombocytopenia, unspecified; K80.20 Calculus of gallbladder without cholecystitis without obstruction; E87.5 Hyperkalemia; R65.20 Severe sepsis without septic shock; I46.9 Cardiac arrest, cause unspecified
CPT/HCPCS: 36415; 36600; 70450; 71045; 71275; 74018; 76770; 80048; 80053; 80074; 80202; 80307; 81001; 82140; 82570; 82728; 82803; 82805; 82947; 82962; 83615; 83690; 83735; 83880; 83930; 83935; 84100; 84145; 84300; 84443; 84484; 84520; 85007; 85014; 85018; 85025; 85027; 85049; 85379; 85520; 85610; 85730; 86022; 86140; 86850; 86900; 86901; 87040; 87070; 87086; 87205; 92950; 93005; 93306; 93970; 94002; 94003; 94640; 94660; G0378; J0171; J0282; J0330; J0456; J0461; J0610; J0692; J0696; J1100; J1265; J1450; J1644; J1815; J2060; J2185; J2250; J2370; J2704; J2765; J2920; J2930; J3010; J3262; J3370; J7030; J7040; J7050; P9035; P9047; Q9967; U0003